=== PATIENT | female | born 1960 | race African-American/Black ===

== ENCOUNTER → 2018-11-17 | Day surgery (SDC) | payer OTHER ==
--- OUTSIDE RECORDS SUMMARY | 2018-11-17 09:30 | XMS REPORT ---
:1960 [facility] Address [address] [place] [address] Dr. Galloway [address] [place] [id number] Care Team Providers Name Role Phone Unavailable Unavailable Unavailable Problems This patient has no known problems. Allergies, Adverse Reactions, Alerts This patient has no known allergies or adverse reactions. Medications This patient has no known medications.
--- NOTE | 2018-11-17 10:41 | RAD REPORT ---
EXAM DESCRIPTION: US - Guided FNA Non Breast - 11/17/2018 10:27 am CLINICAL HISTORY: E04.1 COMPARISON: No comparisons FINDINGS: Preoperative diagnosis: Bilateral thyroid nodules.. Post operative diagnosis: Same. Conscious Sedation: None Fluoroscopy time: None Contrast used: None Estimated blood loss: Minimal Specimens:3 x 25 gauge FNA samples right thyroid. The neck was prepped and draped in the usual sterile fashion. 1% lidocaine was infiltrated into the s ubcutaneous tissues for local anesthesia. Real time ultrasound scanning of the right lobe of the thyr oid demonstrated large echogenic nodule measuring 2.6 x 3.7 x 3.0 cm. Areas of internal cystic change present. Under ultrasound guidance, using 25 gauge FNA needles, 3 specimens were obtained of this le armando and sent to pathology for evaluation. Further specimens could not be obtained due to extreme pat ient anxiety. There were no complications. The FNA procedure of the left thyroid nodule was deferred at this time due to extreme patient anxiety . IMPRESSION: Successful ultrasound-guided FNA procedure right thyroid dominant nodule. The patient was extremely anxious and thus the left-sided procedure was deferred at this time and may be rescheduled. Consideration may be given to Valium pre-procedure therapy.
== END ==
LOC: FNA 09:29
PROVIDERS: ATTEND Internal Medicine Endocrinology, Diabetes & Metabolism
PROC: 0GBH3ZX Excision of Right Thyroid Gland Lobe, Percutaneous Approach, Diagnostic (ICD-10-PCS; principal; 2018-11-17)
PROC: BG44ZZZ Ultrasonography of Thyroid Gland (ICD-10-PCS; 2018-11-17)
DX: E04.1 Nontoxic single thyroid nodule (principal)
CPT/HCPCS: 88162

== ENCOUNTER 2023-02-19 07:43 | Inpatient (IN) | payer OTHER ==
[2023-02-07 10:50] LABS: Absolute Lymphocytes (CBC) 2.7 K/uL (0.7-4.9); Lymphocytes % 33.8 % (15.3-44.8); MCV 83.6 fL (80-100); MPV 7.4 fL (7.6-11.3); RBC Red Blood Cell Count 3.83 M/uL (3.86-4.86)
[2023-02-07 11:12] LABS: SARS-CoV-2 Antigen Rapid Res Positive (Negative)
[2023-02-07 11:37] LABS: Albumin 2.8 g/dL (3.4-5.0); Bilirubin Total 0.2 mg/dL (0.2-1.0); Protein, Total 7.4 g/dL (6.4-8.2)
[2023-02-07 11:38] LABS: Specific Gravity > 1.030 (1.005-1.030); Urine Bacteria <20 /HPF (<20); Urine Bilirubin 1+ (Negative); Urine Blood Negative (Negative); Urine Clarity Clear (Clear); Urine Color Yellow (Yellow); Urine Crystals Unidentified Few /HPF (None Seen); Urine Glucose NEGATIVE (Negative); Urine Mucus 3+ /HPF (None Seen); Urine Protein 1+ (Negative); Urine Urobilinogen 1+ (Normal); Urine pH 5.5 (5.0-7.0)
--- NOTE | 2023-02-07 11:42 | RAD REPORT ---
EXAM DESCRIPTION: [facility] And Lat (2 Views)02/07/2023 10:47 am CLINICAL HISTORY: Pre op pending arthroplasty. Hypertension COMPARISON: CHEST PA AND LAT 2 VIEW dated 11/24/2014; CHEST PA AND LAT 2 VIEW dated 11/11/2012; CHEST S RICHARD VIEW dated 06/02/2010; CHEST SINGLE VIEW dated 06/26/2009 TECHNIQUE: PA and lateral views of the chest. FINDINGS: The lungs are clear.Hyperlucency and hyperinflation. Basal predominant chronic interstitia l changes, may relate to underlying COPD. Appearance is stable. No pneumothorax or effusion. The card iomediastinal contours are unremarkable. IMPRESSION: No acute cardiopulmonary process.
--- NOTE | 2023-02-07 18:10 | EKG ---
Test Date: 2023-02-07 Test Time: 10:08:12 Contract Serviceman: SIM MEASUREMENT RESULTS: Intervals: Rate: 71 NV: 154 QRSD: 90 QT: 444 QTc: 482 Munday: P: 68 NV: 154 QRS: 49 T: 46 INTERPRETIVE STATEMENTS: Normal sinus rhythm Normal ECG Compared to ECG 11/24/2014 10:56:26 T-wave abnormality no longer present Electronically Signed On 02-07-23 18:09:53 CDT by Bentley Tatum
[2023-02-19 08:25] LABS: Protime INR 0.96
[2023-02-19] MEDS ORDERED: CEFAZOLIN SODIUM 2 GM/VIAL ONE (08:27)
[2023-02-19] MEDS ORDERED: CELECOXIB 100 MG CAPSULE ONE (08:27)
[2023-02-19] MEDS ORDERED: GABAPENTIN 100 MG CAP ONE (08:28)
[2023-02-19] MEDS ORDERED: Oxycodone HCl/Acetaminophen 1 TAB TAB ONE ×2 (08:29→08:40)
[2023-02-19] MEDS ORDERED: ACETAMINOPHEN 500 MG TAB ONE (08:30)
[2023-02-19] MEDS ORDERED: NA CHLORIDE 0.9% 1,000 ML ONE ×2 (08:30→11:59)
[2023-02-19] MEDS ORDERED: dexAMETHasone 4 MG/ML VIAL ONE ×2 (09:16→13:40)
[2023-02-19] MEDS ORDERED: BUPIVACAINE 0.25% PF 30 ML VIAL ONE (09:17)
[2023-02-19] MEDS ORDERED: MIDAZOLAM HCL 2 MG/2 ML INJ ONE ×2 (09:17→14:11)
[2023-02-19] MEDS ORDERED: FENTANYL CITR 100 MCG/2 ML ONE (09:17)
[2023-02-19] MEDS ORDERED: HYDROMORPHONE HCL 1 MG/ML INJ ONE (10:06)
[2023-02-19] MEDS ORDERED: propofoL 200 MG/20 ML VIAL IV ONE (10:09)
[2023-02-19] MEDS ORDERED: LIDOCAINE 2% MPF 5 ML VIAL ONE ×2 (10:09→13:39)
[2023-02-19] MEDS ORDERED: ONDANSETRON 4 MG/2 ML VIAL ONE ×2 (10:12→13:21)
[2023-02-19] MEDS: TRANEXAMIC ACID 1,000 MG/10 ML VIAL IV ONE ×4 (10:28→12:30)
[2023-02-19] MEDS ORDERED: EPHEDRINE SULF 50 MG/ML VIAL ONE (10:52)
[2023-02-19] MEDS ORDERED: GLYCOPYRROLATE 0.2 MG/ML SYR ONE (10:58)
[2023-02-19] MEDS ORDERED: DOCUSATE NA 100 MG CAP PO PRN (12:45)
[2023-02-19] MEDS ORDERED: KETOROLAC 30 MG/ML INJ ONE (12:45)
[2023-02-19] MEDS ORDERED: ONDANSETRON 4 MG/2 ML VIAL IV PRN (12:45)
--- NOTE | 2023-02-19 12:55 | P.BOP ---
Preoperative diagnosis: left knee arthritis Postoperative diagnosis: same Primary procedure: left total knee arthoplasty Estimated blood loss: 100ccs Anesthesia: General Complications: None Transferred to: Recovery Room Condition: Good
[2023-02-19] MEDS: HYDROMORPHONE HCL 1 MG/ML INJ ONE ×4 (13:16→13:31)
[2023-02-19] MEDS ORDERED: EPINEPHRINE/PF 1 MG/ML AMP ONE (13:40)
--- OUTSIDE RECORDS SUMMARY | 2023-02-19 14:19 | XMS REPORT | Continuity of Care Document ---
:1960 Author Organization [facility] t Address [address] [place] [address] [address] [place] [address] Care Team Providers Name Role Phone CODY DWYER Primary Care Physician Unavailable TANISHA DE LOS SANTOS Attending Clinician Unavailable CODY DWYER Attending Clinician Unavailable VILLA CHONG Attending Clinician Unavailable Cody Dwyer MD Attending Clinician Doctor Unassigned, [place] Attending Clinician Unavailable Arnaldo Stewart PTA Attending Clinician Unavailable Gurpreet Ty MD Attending Clinician Yaquelin Mari PT Attending Clinician Unavailable Henri Ortiz MD Attending Clinician Pob, [facility] Lab Main Attending Clinician Unavailable Awa Alvarez RN Attending Clinician Unavailable PEDRO PITT Attending Clinician Unavailable Pedro Pitt DO Attending Clinician Serina Lugo MD Attending Clinician [phone] Tanisha De Los Santos MD Attending Clinician RAMIREZ Attending Clinician Unavailable 2, Adc Lab Attending Clinician Unavailable Villa Chong DO Attending Clinician Pcp-Lab Attending Clinician Unavailable ITZ WATT Attending Clinician Unavailable Itz Roth Attending Clinician Lab, Ang - Db Attending Clinician Unavailable Robyn Arias RN Attending Clinician Unavailable Vaccine, Adc Family Medicine Attending Clinician Unavailable Rhett Cheema DO Attending Clinician RHETT CHEEMA Attending Clinician Unavailable GURPREET TY Attending Clinician Unavailable Nelson Aragon MD Attending Clinician MAXIMILIAN SEAMAN S Attending Clinician Unavailable Padmini PACMaximilian S Attending Clinician MELITA MONTEZ Attending Clinician Unavailable Mickey EMBEDDED SOFTWARE TEST ENGINEERMelita Attending Clinician Tono Rico RN Attending Clinician Unavailable CONSTANTINE ALVAREZ Attending Clinician Unavailable Reyna Watt MD Attending Clinician Constantine Alvarez MD Attending Clinician GUILLERMINA PALMA Attending Clinician Unavailable Guillermina Palma DO Attending Clinician Barbara Nagy LMSW Attending Clinician Roxana Nunn OT Attending Clinician Unavailable Nurse, Adc Pob Immunization Attending Clinician Unavailable Med, Medicare Wellness Krishna Flores Attending Clinician Unavailab [place] Attending Clinician Unavailable SHAD GREENBERG Attending Clinician Unavailable SKIP HAWLEY Attending Clinician Unavailable SKIP HAWLEY Attending Clinician Unavailable BARRIE AUGUSTIN Attending Clinician Unavailable TUYET LEVINE Attending Clinician Unavailable ZHANE CARRASCO Attending Clinician Unavailable JOSE ROBIN Attending Clinician Unavailable CODY DWYER Admitting Clinician Unavailable TANISHA DE LOS SANTOS Admitting Clinician Unavailable RAMIREZ Admitting Clinician Unavailable PEDRO PITT Admitting Clinician Unavailable MELITA MONTEZ Admitting Clinician Unavailable CONSTANTINE ALVAREZ Admitting Clinician Unavailable Constantine Alvarez MD Admitting Clinician SKIP HAWLEY Admitting Clinician Unavailable JOSE ROBIN Admitting Clinician Unavailable Payers Payer Name Policy Type Policy Number Effective Date Expiration Date S rubi [facility] DUAL [id number] 2019 COMP HMO D SNP 00:00:00 [facility] [id number] 2016 00:00:00 [facility] [id number] DUAL COMPLETE CHOICE Problems Condition Condition Condition Status Onset Resolution Last Treating Co mments Source Name Details Category Date Date Treatment Clinician Date YI YI Disease Active Univers positive positive 7-05 ity of 00:00: [place] 00 Medical Branch Low TSH Low TSH Disease Active Univers level level 7-05 ity of 00:00: [place] 00 Medical Branch Rheumatoid Rheumatoid Disease Active U nivers factor factor 7-05 ity of positive positive 00:00: [place] 00 Medical Branch Rheumatoid Rheumatoid Disease Active U nivers arthritis arthritis 5-31 ity of flare flare 00:00: [place] 00 Medical Branch Gouty Gouty Disease Active Univers arthritis arthritis 5-31 ity of 00:00: [place] 00 Medical Branch Nicotine Nicotine Disease Active Unive rs dependence dependence 5-31 it y of with with 00:00: [place] current current 00 Medical use use Branch Gouty Gouty Disease Active Univers arthritis arthritis 5-31 ity of 00:00: [place] 00 Medical Branch Nicotine Nicotine Disease Active Unive rs dependence dependence 5-31 it y of with with 00:00: [place] current current 00 Medical use use Branch Arthritis, Arthritis, Disease Active U nivers multiple multiple 2-04 ity of joint joint 00:00: [place] involvemen involvemen 00 Me dical t t Branch Lisfranc Lisfranc Disease Active Unive rs dislocatio dislocatio 2-04 it y of n, left, n, left, 00:00: [place] sequela sequela 00 Medical Branch Swelling Swelling Disease Active Unive rs of joint of joint 2-04 ity of of of 00:00: [place] multiple multiple 00 Medica l sites sites Branch Left foot Left foot Disease Active Uni vers pain pain 2-04 ity of 00:00: [place] 00 Medical Branch Obesity Obesity Disease Active Univers (BMI (BMI 1-04 ity of 30-39.9) 30-39.9) 00:00: [place] 00 [facility] Disease Active 2020-11 Unive rs discharge discharge 0-21 ity of follow-up follow-up 00:00: Mirtha covarrubias 00 Medical Branch Right Right Disease Active 2020-11 Univers groin pain groin pain 0-21 it y of 00:00: [place] 00 Medical Branch Supraumbil Supraumbil Disease Active 2020-11 U nivers ical ical 0-21 ity of hernia hernia 00:00: [place] 00 Medical Branch Colon, Colon, Disease Active 2020-11 Univers diverticul diverticul 0-21 it y of osis osis 00:00: [place] 00 Medical Branch Primary Primary Disease Active 2020-11 Univers osteoarthr osteoarthr 0-21 it y of itis of itis of 00:00: [place] both knees both knees 00 Me dical Branch Primary Primary Disease Active 2020-11 Univers osteoarthr osteoarthr 0-21 it y of itis of itis of 00:00: [place] both both 00 Medical shoulders shoulders 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 2020-11 Uni vers (current) (current) 0-21 ity of use of use of 00:00: [place] non-steroi non-steroi 00 Ct dical laura laura Branch anti-infla anti-infla mmatories mmatories (nsaid) (nsaid) 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 acute acute 0-09 ity of exacerbati exacerbati 00:[place] 00 Medical Branch Falls Falls Disease Active Univers frequently frequently 9- it y of 00:00: [place] 00 Medical Branch Infective Infective Disease Active Uni vers urethritis urethritis 5-11 it y of 00:00: [place] 00 Medical Branch Proteus Proteus Disease Active Univers mirabilis mirabilis 5-11 ity of infection infection 00:[place] Hypertensi Hypertensi Disease Active U nivers ve heart ve heart 5-11 ity of and kidney and kidney 00:[place] disease disease 00 Medical with HF with HF Branch and with and with CKD stage CKD stage II II Need for Need for Disease Active Unive rs immunizati immunizati 4-20 it y of on against on against 00:[place] influenza influenza 00 [facility] Branch Yeast Yeast Disease Active Univers infection infection 4-20 ity of 00:00: [place] 00 Medical Branch Adjustment Adjustment Disease Active U nivers reaction reaction 4-20 ity of with with 00:00: [place] anxiety anxiety 00 Medical and and Branch depression depression Cigarette Cigarette Disease Active Uni vers nicotine nicotine 4-20 ity of dependence dependence 00:[place] 00 Medical remission remission Bran ch Type 2 Type 2 Disease Active Univers diabetes diabetes 1-27 ity of mellitus mellitus 00:00: [place] without without 00 Medical complicati complicati Br anch on, on, without without long-term long-term current current use of use of insulin insulin Other Other Disease Active Univers emphysema emphysema 1-27 ity of 00:00: [place] 00 Medical Branch Chronic Chronic Disease Active Univers pain of pain of 1-27 ity of both both 00:00: [place] shoulders shoulders 00 Medi rodney Branch Gastroesop Gastroesop Disease Active U anshul hageal hageal 1-27 ity of reflux reflux 00:00: [place] disease disease 00 Medical with with Branch esophagiti esophagiti s without s without hemorrhage hemorrhage Dyslipidem Dyslipidem Disease Active U nivers ia ia 1-27 ity of 00:00: [place] 00 Medical Branch Anxiety Anxiety Disease Active Univers and and 1-27 ity of depression depression 00:[place] Chronic Chronic Disease Active Univers midline midline 1-27 ity of low back low back 00:00: [place] pain with pain with 00 Medi rodney bilateral bilateral Bran ch sciatica sciatica Muscle Muscle Disease Active Univers spasticity spasticity 1-27 it y of 00:00: [place] 00 Medical Branch Chronic Chronic Disease Active Univers pain of pain of 1-27 ity of both both 00:00: [place] shoulders shoulders 00 Medi rodney Branch Weakness Weakness Disease Active 2019-11 Unive rs 0-29 ity of 00:00: [place] 00 Medical Branch Atypical Atypical Disease Active Unive rs chest pain chest pain 1-10 it y of 00:00: [place] 00 Medical Branch Hyperglyce Hyperglyce Disease Active U kristopherers pablo pablo 1-09 ity of 00:00: [place] 00 Medical Branch YEHUDA YEHUDA Disease Active 2018-11 Univers (obstructi (obstructi 0-27 it y of ve sleep ve sleep 00:00: [place] apnea) apnea) 00 [facility] Morbid Morbid Disease Active 2018-11 Univers obesity obesity 0-27 ity of 00:00: [place] 00 [facility] Branch Chronic Chronic Disease Active 2018-11 Univers heart heart 0-27 ity of failure failure 00:00: [place] with with 00 Medical preserved preserved Bran ch ejection ejection fraction fraction Essential Essential Disease Active 2018-11 Uni vers hypertensi hypertensi 0-27 it y of on on 00:00: [address] Dizziness Dizziness Disease Active 2018-11 Uni vers and and 0-27 ity of giddiness giddiness 00:00: [place] [facility] Allergies, Adverse Reactions, Alerts Allergy Allergy Status Severity Reaction(s) Onset Inactive Treating Comm ents Source Name Type Date Date Clinician NO KNOWN Drug Active Univers ALLERGIE Class ity of S [facility] Social History Social Habit Start Date Stop Date Quantity Comments Source Alcohol intake 2022-12-07 2022-12-07 0 /d University of 00:00:00 00:00:00 [facility] Exposure to 2022-10-01 2022-10-11 Not sure University of SARS-CoV-2 00:00:00 13:54:00 [facility] (event) [place] Cigarettes smoked 2022-08-08 2022-08-08 Univers ity of current (pack per 00:00:00 00:00:00 ) - Reported Branch Cigarette 2022-08-08 2022-08-08 University of pack-years 00:00:00 00:00:00 [facility] Tobacco use and 2022-08-08 2022-08-08 Smokeless tobacco Un iversity of exposure 00:00:00 00:00:00 non-user [facility] Tobacco Comment 2022-08-08 2022-08-08 intermittent since U niversity of 00:00:00 00:00:00 1987, did non [place] Medic al nicotene vaping in Branch past History of 1988-08-04 2020-08-04 Cigarette Smoker Universi ty of tobacco use 00:00:00 00:00:00 [facility] Sex [birth year] At [birth year] Universit y of 00:00:00 00:00:00 [facility] Smoking Status Start Date Stop Date Source Ex-smoker 2022-08-08 00:00:00 2022-08-08 00:00:00 [facility] [place] [facility] Medications Ordered Filled Start Stop Current Ordering Indication Dosage Frequency Signature Comments Components Source Medication Medication Date Date Medication? Clinician (SIG) Name Name FLUTICASONE Yes [id number] SHAKE Univers PROPIONATE 3-28 LIQUID AND ity of 50 00:00: USE 2 [place] mcg/actuati 00 SPRAYS IN Med ical on nasal EACH Branch spray NOSTRIL EVERY DAY ergocalcife 2022-0 Yes [id number] Take 1 Univers rol, 3-19 capsule by ity of vitamin d2, 00:00: mouth [place] 1,250 mcg 00 weekly. Medical (50,000 Branch unit) capsule calcium 2022-0 Yes [id number] 500mg Take 1 Uni vers carbonate 3-19 tablet by ity o f (CALCIUM 00:00: mouth in [place] 500) 500 mg 00 the Medical calcium morning. Branch (1,250 mg) tablet ergocalcife 2022-0 Yes [id number] Take 1 Univers rol, 3-19 capsule by ity of vitamin d2, 00:00: mouth [place] 1,250 mcg 00 weekly. Medical (50,000 Branch unit) capsule calcium 2022-0 Yes [id number] 500mg Take 1 Uni vers carbonate 3-19 tablet by ity o f (CALCIUM 00:00: mouth in [place] 500) 500 mg 00 the Medical calcium morning. Branch (1,250 mg) tablet ergocalcife 2022-0 Yes [id number] Take 1 Univers rol, 3-19 capsule by ity of vitamin d2, 00:00: mouth [place] 1,250 mcg 00 weekly. Medical (50,000 Branch unit) capsule calcium 2022-0 Yes [id number] 500mg Take 1 Uni vers carbonate 3-19 tablet by ity o f (CALCIUM 00:00: mouth in [place] 500) 500 mg 00 the Medical calcium morning. Branch (1,250 mg) tablet ALBUTEROL 2022-0 Yes [id number] INHALE ONE Univers 2.5 mg /3 3-01 VIAL VIA ity of mL (0.083 00:00: NEBULIZER Willy as %) 00 EVERY 4 Medical nebulizer HOURS Branch solution NEEDED FOR WHEEZING OR SHORTNESS OF BREATH ALBUTEROL 0 Yes [id number] INHALE ONE Univers 2.5 mg /3 3-01 VIAL VIA ity of mL (0.083 00:00: NEBULIZER Willy as %) 00 EVERY 4 Medical nebulizer HOURS Branch solution NEEDED FOR WHEEZING OR SHORTNESS OF BREATH ALBUTEROL 2022-0 Yes [id number] INHALE ONE Univers 2.5 mg /3 3-01 VIAL VIA ity of mL (0.083 00:00: NEBULIZER Willy as %) 00 EVERY 4 Medical nebulizer HOURS Branch solution NEEDED FOR WHEEZING OR SHORTNESS OF BREATH ALBUTEROL 2022-0 Yes [id number] INHALE ONE Univers 2.5 mg /3 3-01 VIAL VIA ity of mL (0.083 00:00: NEBULIZER Willy as %) 00 EVERY 4 Medical nebulizer HOURS Branch solution NEEDED FOR WHEEZING OR SHORTNESS OF BREATH ALBUTEROL 2022-0 Yes [id number] INHALE ONE Univers 2.5 mg /3 3-01 VIAL VIA ity of mL (0.083 00:00: NEBULIZER Willy as %) 00 EVERY 4 Medical nebulizer HOURS Branch solution NEEDED FOR WHEEZING OR SHORTNESS OF BREATH GLIMEPIRIDE 2022-0 Yes [id number] TAKE 1 Univers 2 mg tablet 1-24 TABLET BY ity of 00:00: MOUTH IN [place] [address] THE Medical MORNING Branch AND IN THE EVENING METFORMIN 2022-0 Yes [id number] TAKE 1 U nivers 500 mg 1-24 TABLET BY ity of tablet 00:00: MOUTH IN [place] [address] THE Medical MORNING Branch AND IN THE EVENING WITH MEALS GLIMEPIRIDE 2022-0 Yes [id number] TAKE 1 Univers 2 mg tablet 1-24 TABLET BY ity of 00:00: MOUTH IN [place] [address] THE Medical MORNING Branch AND IN THE EVENING METFORMIN 2022-0 Yes [id number] TAKE 1 U nivers 500 mg 1-24 TABLET BY ity of tablet 00:00: MOUTH IN [place] THE Medical MORNING Branch AND IN THE EVENING WITH MEALS GLIMEPIRIDE 2022-0 Yes [id number] TAKE 1 Univers 2 mg tablet 1-24 TABLET BY ity of 00:00: MOUTH IN [place] [address] THE Medical MORNING Branch AND IN THE EVENING METFORMIN 2022-0 Yes [id number] TAKE 1 U nivers 500 mg 1-24 TABLET BY ity of tablet 00:00: MOUTH IN [place] [address] THE Medical MORNING Branch AND IN THE EVENING WITH MEALS GLIMEPIRIDE 2022-0 Yes [id number] TAKE 1 Univers 2 mg tablet 1-24 TABLET BY ity of 00:00: MOUTH IN [place] 00 THE Medical MORNING Branch AND IN THE EVENING METFORMIN 0 Yes [id number] TAKE 1 U nivers 500 mg 1-24 TABLET BY ity of tablet 00:00: MOUTH IN [place] 00 THE Medical MORNING Branch AND IN THE EVENING WITH MEALS GLIMEPIRIDE 0 Yes [id number] TAKE 1 Univers 2 mg tablet 1-24 TABLET BY ity of 00:00: MOUTH IN [place] 00 THE Medical MORNING Branch AND IN THE EVENING METFORMIN 0 Yes [id number] TAKE 1 U nivers 500 mg 1-24 TABLET BY ity of tablet 00:00: MOUTH IN [place] 00 THE Medical MORNING Branch AND IN THE EVENING WITH MEALS GLIMEPIRIDE 0 Yes [id number] TAKE 1 Univers 2 mg tablet 1-24 TABLET BY ity of 00:00: MOUTH IN [place] 00 THE Medical MORNING Branch AND IN THE EVENING METFORMIN 0 Yes [id number] TAKE 1 U nivers 500 mg 1-24 TABLET BY ity of tablet 00:00: MOUTH IN [place] [address] THE Medical MORNING Branch AND IN THE EVENING WITH MEALS GLIMEPIRIDE 0 Yes [id number] TAKE 1 Univers 2 mg tablet 1-24 TABLET BY ity of 00:00: MOUTH IN [place] 00 THE Medical MORNING Branch AND IN THE EVENING METFORMIN 2022-0 Yes [id number] TAKE 1 U nivers 500 mg 1-24 TABLET BY ity of tablet 00:00: MOUTH IN [place] 00 THE Medical MORNING Branch AND IN THE EVENING WITH MEALS GLIMEPIRIDE 0 Yes [id number] TAKE 1 Univers 2 mg tablet 1-24 TABLET BY ity of 00:00: MOUTH IN [place] [address] THE Medical MORNING Branch AND IN THE EVENING METFORMIN 2022-0 Yes [id number] TAKE 1 U nivers 500 mg 1-24 TABLET BY ity of tablet 00:00: MOUTH IN [place] [address] THE Medical MORNING Branch AND IN THE EVENING WITH MEALS GLIMEPIRIDE 0 Yes [id number] TAKE 1 Univers 2 mg tablet 1-24 TABLET BY ity of 00:00: MOUTH IN [place] [address] THE Medical MORNING Branch AND IN THE EVENING METFORMIN 2022-0 Yes [id number] TAKE 1 U nivers 500 mg 1-24 TABLET BY ity of tablet 00:00: MOUTH IN [place] [address] THE Medical MORNING Branch AND IN THE EVENING WITH MEALS GLIMEPIRIDE 2022-0 Yes [id number] TAKE 1 Univers 2 mg tablet 1-24 TABLET BY ity of 00:00: MOUTH IN [place] [address] THE Medical MORNING Branch AND IN THE EVENING METFORMIN 2022-0 Yes [id number] TAKE 1 U nivers 500 mg 1-24 TABLET BY ity of tablet 00:00: MOUTH IN [place] [address] THE Medical MORNING Branch AND IN THE EVENING WITH MEALS GLIMEPIRIDE 2022-0 Yes [id number] TAKE 1 Univers 2 mg tablet 1-24 TABLET BY ity of 00:00: MOUTH IN [place] [address] THE Medical MORNING Branch AND IN THE EVENING METFORMIN 2022-0 Yes [id number] TAKE 1 U nivers 500 mg 1-24 TABLET BY ity of tablet 00:00: MOUTH IN [place] [address] THE Medical MORNING Branch AND IN THE EVENING WITH MEALS GLIMEPIRIDE 2022-0 Yes [id number] TAKE 1 Univers 2 mg tablet 1-24 TABLET BY ity of 00:00: MOUTH IN [place] [address] THE Medical MORNING Branch AND IN THE EVENING METFORMIN 2022-0 Yes [id number] TAKE 1 U nivers 500 mg 1-24 TABLET BY ity of tablet 00:00: MOUTH IN [place] [address] THE Medical MORNING Branch AND IN THE EVENING WITH MEALS GLIMEPIRIDE 2022-0 Yes [id number] TAKE 1 Univers 2 mg tablet 1-24 TABLET BY ity of 00:00: MOUTH IN [place] [address] THE Medical MORNING Branch AND IN THE EVENING METFORMIN 2022-0 Yes [id number] TAKE 1 U nivers 500 mg 1-24 TABLET BY ity of tablet 00:00: MOUTH IN [place] [address] THE Medical MORNING Branch AND IN THE EVENING WITH MEALS buPROPion 2022-0 Yes [id number] 150mg Take 1 U nivers SR 150 mg 1-05 tablet by ity o f SR tablet 00:00: mouth in [place] [address] the Medical morning Branch and 1 tablet in the evening. diclofenac- 2022-0 Yes [id number] 1{tbl} Take 1 Univers misoprostoL 1-05 tablet by ity of 50-200 00:00: mouth in [place] mg-mcg per the Medical [facility] morning Branch and 1 tablet in the evening. buPROPion 2022-0 Yes [id number] 150mg Take 1 U nivers SR 150 mg 1-05 tablet by ity o f SR tablet 00:00: [place] the Medical morning Branch and 1 tablet in the evening. diclofenac- 2022-0 Yes [id number] 1{tbl} Take 1 Univers misoprostoL 1-05 tablet by ity of 50-200 00:00: mouth in [place] mg-mcg per 00 the Medical tablet morning Branch and 1 tablet in the evening. buPROPion 2022-0 Yes [id number] 150mg Take 1 U nivers SR 150 mg 1-05 tablet by ity o f SR tablet 00:00: [place] the Medical morning Branch and 1 tablet in the evening. diclofenac- 2022-0 Yes [id number] 1{tbl} Take 1 Univers misoprostoL 1-05 tablet by ity of 50-200 00:00: mouth in [place] mg-mcg per 00 the Medical tablet morning Branch and 1 tablet in the evening. buPROPion 2022-0 Yes [id number] 150mg Take 1 U nivers SR 150 mg 1-05 tablet by ity o f SR tablet 00:00: [place] 00 the Medical morning Branch and 1 tablet in the evening. diclofenac- 2022-0 Yes [id number] 1{tbl} Take 1 Univers misoprostoL 1-05 tablet by ity of 50-200 00:00: mouth in [place] mg-mcg per 00 the Medical tablet morning Branch and 1 tablet in the evening. buPROPion 2022-0 Yes [id number] 150mg Take 1 U nivers SR 150 mg 1-05 tablet by ity o f SR tablet 00:00: [place] 00 the Medical morning Branch and 1 tablet in the evening. diclofenac- 2022-0 Yes [id number] 1{tbl} Take 1 Univers misoprostoL 1-05 tablet by ity of 50-200 00:00: mouth in [place] mg-mcg per 00 the Medical tablet morning Branch and 1 tablet in the evening. buPROPion 2022-0 Yes [id number] 150mg Take 1 U nivers SR 150 mg 1-05 tablet by ity o f SR tablet 00:00: [place] 00 the Medical morning Branch and 1 tablet in the evening. diclofenac- 2022-0 Yes [id number] 1{tbl} Take 1 Univers misoprostoL 1-05 tablet by ity of 50-200 00:00: mouth in [place] mg-mcg per 00 the Medical tablet morning Branch and 1 tablet in the evening. buPROPion 2022-0 Yes [id number] 150mg Take 1 U nivers SR 150 mg 1-05 tablet by ity o f SR tablet 00:00: mouth [place] 00 the Medical morning Branch and 1 tablet in the evening. diclofenac- 2022-0 Yes [id number] 1{tbl} Take 1 Univers misoprostoL 1-05 tablet by ity of 50-200 00:00: mouth in [place] mg-mcg per 00 the Medical tablet morning Branch and 1 tablet in the evening. buPROPion 2022-0 Yes [id number] 150mg Take 1 U nivers SR 150 mg 1-05 tablet by ity o f SR tablet 00:00: mouth [place] 00 the Medical morning Branch and 1 tablet in the evening. diclofenac- 2022-0 Yes [id number] 1{tbl} Take 1 Univers misoprostoL 1-05 tablet by ity of 50-200 00:00: mouth in [place] mg-mcg per 00 the Medical tablet morning Branch and 1 tablet in the evening. buPROPion 2022-0 Yes [id number] 150mg Take 1 U nivers SR 150 mg 1-05 tablet by ity o f SR tablet 00:00: [place] 00 the Medical morning Branch and 1 tablet in the evening. diclofenac- 2022-0 Yes [id number] 1{tbl} Take 1 Univers misoprostoL 1-05 tablet by ity of 50-200 00:00: mouth in [place] mg-mcg per 00 the Medical tablet morning Branch and 1 tablet in the evening. buPROPion 2022-0 Yes [id number] 150mg Take 1 U nivers SR 150 mg 1-05 tablet by ity o f SR tablet 00:00: [place] 00 the Medical morning Branch and 1 tablet in the evening. diclofenac- 2022-0 Yes [id number] 1{tbl} Take 1 Univers misoprostoL 1-05 tablet by ity of 50-200 00:00: mouth in [place] mg-mcg per 00 the Medical tablet morning Branch and 1 tablet in the evening. buPROPion 2022-0 Yes [id number] 150mg Take 1 U nivers SR 150 mg 1-05 tablet by ity o f SR tablet 00:00: [place] 00 the Medical morning Branch and 1 tablet in the evening. diclofenac- 2022-0 Yes [id number] 1{tbl} Take 1 Univers misoprostoL 1-05 tablet by ity of 50-200 00:00: mouth in [place] mg-mcg per 00 the Medical tablet morning Branch and 1 tablet in the evening. buPROPion 2022-0 Yes [id number] 150mg Take 1 U nivers SR 150 mg 1-05 tablet by ity o f SR tablet 00:00: [place] 00 the Medical morning Branch and 1 tablet in the evening. diclofenac- 2022-0 Yes [id number] 1{tbl} Take 1 Univers misoprostoL 1-05 tablet by ity of 50-200 00:00: mouth in [place] mg-mcg per 00 the Medical tablet morning Branch and 1 tablet in the evening. buPROPion 2022-0 Yes [id number] 150mg Take 1 U nivers SR 150 mg 1-05 tablet by ity o f SR tablet 00:00: [place] 00 the Medical morning Branch and 1 tablet in the evening. diclofenac- 2022-0 Yes [id number] 1{tbl} Take 1 Univers misoprostoL 1-05 tablet by ity of 50-200 00:00: mouth in [place] mg-mcg per 00 the Medical tablet morning Branch and 1 tablet in the evening. buPROPion 2022-0 Yes [id number] 150mg Take 1 U nivers SR 150 mg 1-05 tablet by ity o f SR tablet 00:00: [place] 00 the Medical morning Branch and 1 tablet in the evening. diclofenac- 2022-0 Yes [id number] 1{tbl} Take 1 Univers misoprostoL 1-05 tablet by ity of 50-200 00:00: mouth in [place] mg-mcg per 00 the Medical tablet morning Branch and 1 tablet in the evening. buPROPion 2022-0 Yes [id number] 150mg Take 1 U nivers SR 150 mg 1-05 tablet by ity o f SR tablet 00:00: [place] 00 the Medical morning Branch and 1 tablet in the evening. diclofenac- 2022-0 Yes [id number] 1{tbl} Take 1 Univers misoprostoL 1-05 tablet by ity of 50-200 00:00: mouth in [place] mg-mcg per 00 the Medical tablet morning Branch and 1 tablet in the evening. buPROPion 0 Yes [id number] 150mg Take 1 U nivers SR 150 mg 1-05 tablet by ity o f SR tablet 00:00: [place] 00 the Medical morning Branch and 1 tablet in the evening. diclofenac- Yes [id number] 1{tbl} Take 1 Univers misoprostoL 1-05 tablet by ity of 50-200 00:00: mouth in [place] mg-mcg per 00 the Medical tablet morning Branch and 1 tablet in the evening. buPROPion 0 Yes [id number] 150mg Take 1 [facility] n[facility] SR 150 mg 1-05 tablet by ity o f SR tablet 00:00: [place] 00 the Medical morning Branch and 1 tablet in the evening. diclofenac- Yes [id number] 1{tbl} Take 1 [facility] misoprostoL 1-05 tablet by ity of 50-200 00:00: mouth in [place] mg-mcg per 00 the Medical tablet morning Branch and 1 tablet in the evening. buPROPion 0 Yes [id number] 150mg Take 1 [facility] nivers SR 150 mg 1-05 tablet by ity o f SR tablet 00:00: mouth [place] 00 the Medical morning Branch and 1 tablet in the evening. diclofenac- Yes [id number] 1{tbl} Take 1 [facility] misoprostoL 1-05 tablet by ity of 50-200 00:00: mouth in [place] mg-mcg per 00 the Medical tablet morning Branch and 1 tablet in the evening. buPROPion 0 Yes [id number] 150mg Take 1 U nivers SR 150 mg 1-05 tablet by ity o f SR tablet 00:00: mouth [place] 00 the Medical morning Branch and 1 tablet in the evening. diclofenac- 0 Yes [id number] 1{tbl} Take 1 [facility] misoprostoL 1-05 tablet by ity of 50-200 00:00: mouth in [place] mg-mcg per 00 the Medical tablet morning Branch and 1 tablet in the evening. fluticasone 2021-11 Yes [id number] SHAKE [facility] propionate 2-29 LIQUID AND ity of 50 00:00: USE 2 [place] mcg/actuati 00 SPRAYS IN Med ical on nasal EACH Branch spray NOSTRIL EVERY DAY fluticasone 2021-11 Yes [id number] SHAKE [facility] propionate 2-29 LIQUID AND ity of 50 00:00: USE 2 [place] mcg/actuati 00 SPRAYS IN Med ical on nasal EACH Branch spray NOSTRIL EVERY DAY fluticasone 2021-11 Yes [id number] SHAKE [facility] propionate 2-29 LIQUID AND ity of 50 00:00: USE 2 [place] mcg/actuati 00 SPRAYS IN Med ical on nasal EACH Branch spray NOSTRIL EVERY DAY fluticasone 2021-11 Yes [id number] SHAKE [facility] propionate 2-29 LIQUID AND ity of 50 00:00: USE 2 [place] mcg/actuati 00 SPRAYS IN Med ical on nasal EACH Branch spray NOSTRIL EVERY DAY fluticasone 2021-11 Yes [id number] SHAKE [facility] propionate 2-29 LIQUID AND ity of 50 00:00: USE 2 [place] mcg/actuati 00 SPRAYS IN Med ical on nasal EACH Branch spray NOSTRIL EVERY DAY fluticasone 2021-11 Yes [id number] SHAKE [facility] propionate 2-29 LIQUID AND ity of 50 00:00: USE 2 [place] mcg/actuati 00 SPRAYS IN Med ical on nasal EACH Branch spray NOSTRIL EVERY DAY fluticasone 2021-11 Yes [id number] SHAKE [facility] propionate 2-29 LIQUID AND ity of 50 00:00: USE 2 [place] mcg/actuati 00 SPRAYS IN Med ical on nasal EACH Branch spray NOSTRIL EVERY DAY fluticasone 2021-11 Yes [id number] SHAKE [facility] propionate 2-29 LIQUID AND ity of 50 00:00: USE 2 [place] mcg/actuati 00 SPRAYS IN Med ical on nasal EACH Branch spray NOSTRIL EVERY DAY fluticasone 2021-11 Yes [id number] SHAKE [facility] propionate 2-29 LIQUID AND ity of 50 00:00: USE 2 [place] mcg/actuati 00 SPRAYS IN Med ical on nasal EACH Branch spray NOSTRIL EVERY DAY fluticasone 2021-11 Yes [id number] SHAKE [facility] propionate 2-29 LIQUID AND ity of 50 00:00: USE 2 [place] mcg/actuati 00 SPRAYS IN Med ical on nasal EACH Branch spray NOSTRIL EVERY DAY fluticasone 2021-11 Yes [id number] SHAKE [facility] propionate 2-29 LIQUID AND ity of 50 00:00: USE 2 [place] mcg/actuati 00 SPRAYS IN Med ical on nasal EACH Branch spray NOSTRIL EVERY DAY fluticasone 2021-11 Yes [id number] SHAKE [facility] propionate 2-29 LIQUID AND ity of 50 00:00: USE 2 [place] mcg/actuati 00 SPRAYS IN Med ical on nasal EACH Branch spray NOSTRIL EVERY DAY fluticasone 2021-11 Yes [id number] SHAKE [facility] propionate 2-29 LIQUID AND ity of 50 00:00: USE 2 [place] mcg/actuati 00 SPRAYS IN Med ical on nasal EACH Branch spray NOSTRIL EVERY DAY fluticasone 2021-11 Yes [id number] SHAKE [facility] propionate 2-29 LIQUID AND ity of 50 00:00: USE 2 [place] mcg/actuati 00 SPRAYS IN Med ical on nasal EACH Branch spray NOSTRIL EVERY DAY fluticasone 2021-11 Yes [id number] SHAKE [facility] propionate 2-29 LIQUID AND ity of 50 00:00: USE 2 [place] mcg/actuati 00 SPRAYS IN Med ical on nasal EACH Branch spray NOSTRIL EVERY DAY fluticasone 2021-11 Yes [id number] SHAKE [facility] propionate 2-29 LIQUID AND ity of 50 00:00: USE 2 [place] mcg/actuati 00 SPRAYS IN Med ical on nasal EACH Branch spray NOSTRIL EVERY DAY fluticasone 2021-11 Yes [id number] SHAKE [facility] propionate 2-29 LIQUID AND ity of 50 00:00: USE 2 [place] mcg/actuati 00 SPRAYS IN Med ical on nasal EACH Branch spray NOSTRIL EVERY DAY fluticasone 2021-11 Yes [id number] SHAKE [facility] propionate 2-29 LIQUID AND ity of 50 00:00: USE 2 [place] mcg/actuati 00 SPRAYS IN Med ical on nasal EACH Branch spray NOSTRIL EVERY DAY fluticasone 2021-11 Yes [id number] SHAKE [facility] propionate 2-29 LIQUID AND ity of 50 00:00: USE 2 [place] mcg/actuati 00 SPRAYS IN Med ical on nasal EACH Branch spray NOSTRIL EVERY DAY fluticasone 2021-11 Yes [id number] SHAKE [facility] propionate 2-29 LIQUID AND ity of 50 00:00: USE 2 [place] mcg/actuati 00 SPRAYS IN Med ical on nasal EACH Branch spray NOSTRIL EVERY DAY fluticasone 2021-11 Yes [id number] SHAKE [facility] propionate 2-29 LIQUID AND ity of 50 00:00: USE 2 [place] mcg/actuati 00 SPRAYS IN Med ical on nasal EACH Branch spray NOSTRIL EVERY DAY fluticasone 2021-11 Yes [id number] SHAKE [facility] propionate 2-29 LIQUID AND ity of 50 00:00: USE 2 [place] mcg/actuati 00 SPRAYS IN Med ical on nasal EACH Branch spray NOSTRIL EVERY DAY fluticasone 2021-11 Yes [id number] SHAKE [facility] propionate 2-29 LIQUID AND ity of 50 00:00: USE 2 [place] mcg/actuati 00 SPRAYS IN Med ical on nasal EACH Branch spray NOSTRIL EVERY DAY fluticasone 2021-11- No [id number] ANAKE [facility] propionate 2-29 03-28 LIQUID AND it y of 50 00:00: 00:00 USE 2 [place] mcg/actuati 00 :00 SPRAYS IN Med ical on nasal EACH Branch spray NOSTRIL EVERY DAY methylpredn 2021-11 Yes 125mg 125 mg, Un pelon isolone sod 209 Intravenou it y of succ 00:00: s, Q6H, [place] (SOLU-MEDRO 00 First dose Me dical L) on [place] Branch injection 10/11/22 at 125 mg 1800, Until Discontinu ed, Routine ketorolac 2021-11- No 15mg 15 mg, Unive rs (TORADOL) 2- 12-08 Slow IV ity of injection 21:15: 20:44 Push, [place] 15 mg 00 :00 ONCE, 1 Medical dose, On Branch [place] 10/11/22 at 1515, Routine methylPREDN 2021-11 Yes Take by [facility] ISolone 2-08 mouth ity of (MEDROL, 00:00: SEE-INSTRU [place] as ASH,) 4 mg 00 CTIONS. Medica l tablets follow Branch package directions methylPREDN 2021-11 Yes Take by [facility] ISolone 2-08 mouth ity of (MEDROL, 00:00: SEE-INSTRU [place]SH,) 4 mg 00 CTIONS. Medica l tablets follow Branch package directions methylPREDN 2021-11 Yes Take by [facility] ISolone 2-08 mouth ity of (MEDROL, 00:00: SEE-INSTRU [place],) 4 mg 00 CTIONS. Medica l tablets follow Branch package directions methylPREDN 2021-11 Yes Take by [facility] ISolone 2-08 mouth ity of (MEDROL, 00:00: SEE-INSTRU [place],) 4 mg 00 CTIONS. Medica l tablets follow Branch package directions methylPREDN 2021-11 Yes Take by [facility] ISolone 2-08 mouth ity of (MEDROL, 00:00: SEE-INSTRU [place],) 4 mg 00 CTIONS. Medica l tablets follow Branch package directions methylPREDN 2021-11 Yes Take by [facility] ISolone 2-08 mouth ity of (MEDROL, 00:00: SEE-INSTRU [place],) 4 mg 00 CTIONS. Medica l tablets follow Branch package directions methylPREDN 2021-11 Yes Take by [facility] ISolone -08 mouth ity of (MEDROL, 00:00: SEE-INSTRU [place],) 4 mg 00 CTIONS. Medica l tablets follow Branch package directions methylPREDN 2021-11 Yes Take by [facility] ISolone 2-08 mouth ity of (MEDROL, 00:00: SEE-INSTRU [place],) 4 mg 00 CTIONS. Medica l tablets follow Branch package directions methylPREDN 2021-11 Yes Take by [facility] ISolone 2-08 mouth ity of (MEDROL, 00:00: SEE-INSTRU [place],) 4 mg 00 CTIONS. Medica l tablets follow Branch package directions methylPREDN 2021-11 Yes Take by [facility] ISolone 2-08 mouth ity of (MEDROL, 00:00: SEE-INSTRU [place],) 4 mg 00 CTIONS. Medica l tablets follow Branch package directions methylPREDN 2021-11 Yes Take by [facility] ISolone 2-08 mouth ity of (MEDROL, 00:00: SEE-INSTRU [place],) 4 mg 00 CTIONS. Medica l tablets follow Branch package directions methylPREDN 2021-11 Yes Take by [facility] ISolone 2-08 mouth ity of (MEDROL, 00:00: SEE-INSTRU [place],) 4 mg 00 CTIONS. Medica l tablets follow Branch package directions methylPREDN 2021-11 Yes Take by [facility] ISolone 2-08 mouth ity of (MEDROL, 00:00: SEE-INSTRU [place],) 4 mg 00 CTIONS. Medica l tablets follow Branch package directions methylPREDN 2021-11 Yes Take by [facility] ISolone 2-08 mouth ity of (MEDROL, 00:00: SEE-INSTRU [place],) 4 mg 00 CTIONS. Medica l tablets follow Branch package directions methylPREDN 2021-11 Yes Take by [facility] ISolone 2-08 mouth ity of (MEDROL, 00:00: SEE-INSTRU [place],) 4 mg 00 CTIONS. Medica l tablets follow Branch package directions methylPREDN 2021-11 Yes Take by [facility] ISolone 2-08 mouth ity of (MEDROL, 00:00: SEE-INSTRU [place],) 4 mg 00 CTIONS. Medica l tablets follow Branch package directions methylPREDN 2021-11 Yes Take by [facility] ISolone 2-08 mouth ity of (MEDROL, 00:00: SEE-INSTRU [place],) 4 mg 00 CTIONS. Medica l tablets follow Branch package directions methylPREDN 2021-11 Yes Take by [facility] ISolone 2-08 mouth ity of (MEDROL, 00:00: SEE-INSTRU [place],) 4 mg 00 CTIONS. Medica l tablets follow Branch package directions methylPREDN 2021-11 Yes Take by [facility] ISolone 2-08 mouth ity of (MEDROL, 00:00: SEE-INSTRU [place],) 4 mg 00 CTIONS. Medica l tablets follow Branch package directions methylPREDN 2021-11 Yes Take by [facility] ISolone 2-08 mouth ity of (MEDROL, 00:00: SEE-INSTRU [place],) 4 mg 00 CTIONS. Medica l tablets follow Branch package directions methylPREDN 2021-11 Yes Take by [facility] ISolone 2-08 mouth ity of (MEDROL, 00:00: SEE-INSTRU [place],) 4 mg 00 CTIONS. Medica l tablets follow Branch package directions methylPREDN 2021-11 Yes Take by [facility] ISolone 2-08 mouth ity of (MEDROL, 00:00: SEE-INSTRU [place],) 4 mg 00 CTIONS. Medica l tablets follow Branch package directions methylPREDN 2021-11 Yes Take by [facility] ISolone 2-08 mouth ity of (MEDROL, 00:00: SEE-INSTRU [place],) 4 mg 00 CTIONS. Medica l tablets follow Branch package directions methylPREDN 2021-11 Yes Take by [facility] ISolone 2-08 mouth ity of (MEDROL, 00:00: SEE-INSTRU [place],) 4 mg 00 CTIONS. Medica l tablets follow Branch package directions methylPREDN 2021-11 Yes Take by [facility] ISolone 2-08 mouth ity of (MEDROL, 00:00: SEE-INSTRU [place],) 4 mg 00 CTIONS. Medica l tablets follow Branch package directions methylPREDN 2021-11 Yes Take by [facility] ISolone 2-08 mouth ity of (MEDROL, 00:00: SEE-INSTRU [place],) 4 mg 00 CTIONS. Medica l tablets follow Branch package directions methylPREDN 2021-11 Yes Take by [facility] ISolone 2-08 mouth ity of (MEDROL, 00:00: SEE-INSTRU [place],) 4 mg 00 CTIONS. Medica l tablets follow Branch package directions methylPREDN 2021-11 Yes Take by [facility] ISolone 2-08 mouth ity of (MEDROL, 00:00: SEE-INSTRU [place],) 4 mg 00 CTIONS. Medica l tablets follow Branch package directions indomethaci 2021-11 202- No [id number] 50mg Take 1 [facility] n 50 mg 12-12 12-14 capsule by ity o f capsule 00:00: 05:59 mouth in [place] 00 :00 the Medical morning Branch and 1 capsule at noon and 1 capsule in the evening. Take with meals. Do all this for 5 days. indomethaci 2021-11- No [id number] 50mg Take 1 [facility] n 50 mg 214 capsule by ity o f capsule 00:00: 05:59 mouth in [place] 00 :00 the [facility] morning Branch and 1 capsule at noon and 1 capsule in the evening. Take with meals. Do all this for 5 days. glimepiride 2021-11 Yes [id number] 2mg Take 1 [facility] 2 mg tablet 0-05 tablet by ity of 00:00: mouth in [place] 00 the [facility] morning Branch and 1 tablet in the evening. pioglitazon 2021-11 Yes [id number] 15mg Take 1 [facility] e 15 mg 0-05 tablet by ity of tablet 00:00: mouth in [place] [address] the Medical morning. Branch gabapentin 2021-11 Yes [id number] 600mg Take 1 [facility] 600 mg 0-05 tablet by ity of tablet 00:00: mouth in [place] [address] the [facility] and 1 tablet at noon and 1 tablet in the evening. DULoxetine 2021-11 Yes [id number] 60mg Take 1 [facility] 60 mg 0-05 capsule by ity of capsule 00:00: mouth in [place] 00 the [facility] morning [place] and 1 capsule in the evening. hydrALAZINE 2021-11 Yes [id number] 50mg Take 1 [facility] 50 mg 0-05 tablet by ity of tablet 00:00: mouth in [place] [address] the [facility] and 1 tablet in the evening. furosemide 2021-11 Yes [id number] Take lasix [facility] (LASIX) 40 0-05 02 40 mg BID ity of mg tablet 00:00: [place] [address] Medical Branch metFORMIN 2021-11 Yes [id number] 500mg Take 1 [facility] 500 mg 0-05 tablet by ity of tablet 00:00: mouth in [place] [address] the [facility] morning [place] and 1 tablet in the evening. Take with meals. omeprazole 2021-11 Yes [id number] 40mg Take 1 [facility] 40 mg 0-05 capsule by ity of capsule 00:00: mouth in [place] [address] the Medical morning. Branch potassium 2021-11 Yes [id number] 10meq Take 1 [facility] chloride 10 0-05 02 tablet by ity of mEq CR 00:00: mouth [place] tablet 00 every Medical Saturday, Branch Saturday and Saturday. rosuvastati 2021-11 Yes [id number] 20mg Take 1 [facility] n 20 mg 0-05 tablet by ity of tablet 00:00: mouth in [place] 00 the morning. Branch carvediloL 2021-11 Yes [id number] 25mg Take 1 [facility] 25 mg 0-05 02 tablet by ity of tablet 00:00: mouth in [place] 00 the Medical morning Branch and 1 tablet in the evening. glimepiride 2021-11 Yes [id number] 2mg Take 1 [facility] 2 mg tablet 0-05 tablet by ity of 00:00: mouth in [place] 00 the Medical morning Branch and 1 tablet in the evening. pioglitazon 2021-11 Yes [id number] 15mg Take 1 [facility] e 15 mg 0-05 tablet by ity of tablet 00:00: mouth in [place] 00 the morning. Branch gabapentin 2021-11 Yes [id number] 600mg Take 1 [facility] 600 mg 0-05 tablet by ity of tablet 00:00: mouth in [place] [address] the morning Branch and 1 tablet at noon and 1 tablet in the evening. DULoxetine 2021-11 Yes [id number] 60mg Take 1 [facility] 60 mg 0-05 capsule by ity of capsule 00:00: mouth in [place] [address] the morning [place] and 1 capsule in the evening. hydrALAZINE 2021-11 Yes [id number] 50mg Take 1 [facility] 50 mg 0-05 tablet by ity of tablet 00:00: mouth in [place] [address] the morning [place] and 1 tablet in the evening. furosemide 2021-11 Yes [id number] Take lasix [facility] (LASIX) 40 0-05 02 40 mg BID ity of mg tablet 00:00: [place] 00 Medical [place] metFORMIN 2021-11 Yes [id number] 500mg Take 1 [facility] 500 mg 0-05 tablet by ity of tablet 00:00: mouth in [place] [address] the morning [place] and 1 tablet in the evening. Take with meals. omeprazole 2021-11 Yes [id number] 40mg Take 1 [facility] 40 mg 0-05 capsule by ity of capsule 00:00: mouth in [place] [address] the morning. Branch potassium 2021-11 Yes [id number] 10meq Take 1 [facility] chloride 10 0-05 02 tablet by ity of mEq CR 00:00: mouth [place] tablet 00 every Medical Saturday, Branch Saturday and Saturday. rosuvastati 2021-11 Yes [id number] 20mg Take 1 [facility] n 20 mg 0-05 tablet by ity of tablet 00:00: mouth in [place] 00 the morning. Branch carvediloL 2021-11 Yes [id number] 25mg Take 1 [facility] 25 mg 0-05 02 tablet by ity of tablet 00:00: mouth in [place] [address] the morning Branch and 1 tablet in the evening. glimepiride 2021-11 Yes [id number] 2mg Take 1 [facility] 2 mg tablet 0-05 tablet by ity of 00:00: mouth in [place] [address] the morning Branch and 1 tablet in the evening. pioglitazon 2021-11 Yes [id number] 15mg Take 1 [facility] e 15 mg 0-05 tablet by ity of tablet 00:00: mouth in [place] [address] the morning. Branch gabapentin 2021-11 Yes [id number] 600mg Take 1 [facility] 600 mg 0-05 tablet by ity of tablet 00:00: mouth in [place] [address] the morning [place] and 1 tablet at noon and 1 tablet in the evening. DULoxetine 2021-11 Yes [id number] 60mg Take 1 [facility] 60 mg 0-05 capsule by ity of capsule 00:00: mouth in [place] [address] the [facility] and 1 capsule in the evening. hydrALAZINE 2021-11 Yes [id number] 50mg Take 1 [facility] 50 mg 0-05 tablet by ity of tablet 00:00: mouth in [place] [address] the morning [place] and 1 tablet in the evening. furosemide 2021-11 Yes [id number] Take lasix [facility] (LASIX) 40 0-05 02 40 mg BID ity of mg tablet 00:00: [address] metFORMIN 2021-11 Yes [id number] 500mg Take 1 [facility] 500 mg 0-05 tablet by ity of tablet 00:00: mouth in [place] [address] the [facility] morning [place] and 1 tablet in the evening. Take with meals. omeprazole 2021-11 Yes [id number] 40mg Take 1 [facility] 40 mg 0-05 capsule by ity of capsule 00:00: mouth in [place] [address] the morning. Branch potassium 2021-11 Yes [id number] 10meq Take 1 [facility] chloride 10 0-05 02 tablet by ity of mEq CR 00:00: mouth [place] tablet 00 every Medical Saturday, Branch Saturday and Saturday. rosuvastati 2021-11 Yes [id number] 20mg Take 1 [facility] n 20 mg 0-05 tablet by ity of tablet 00:00: mouth in [place] 00 the Medical morning. Branch carvediloL 2021-11 Yes [id number] 25mg Take 1 [facility] 25 mg 0-05 02 tablet by ity of tablet 00:00: mouth in [place] 00 the Medical morning Branch and 1 tablet in the evening. glimepiride 2021-11 Yes [id number] 2mg Take 1 [facility] 2 mg tablet 0-05 tablet by ity of 00:00: mouth in [place] 00 the morning Branch and 1 tablet in the evening. pioglitazon 2021-11 Yes [id number] 15mg Take 1 [facility] e 15 mg 0-05 tablet by ity of tablet 00:00: mouth in [place] 00 the morning. Branch gabapentin 2021-11 Yes [id number] 600mg Take 1 [facility] 600 mg 0-05 tablet by ity of tablet 00:00: mouth in [place] [address] the morning Branch and 1 tablet at noon and 1 tablet in the evening. DULoxetine 2021-11 Yes [id number] 60mg Take 1 [facility] 60 mg 0-05 capsule by ity of capsule 00:00: mouth in [place] [address] the morning Branch and 1 capsule in the evening. hydrALAZINE 2021-11 Yes [id number] 50mg Take 1 [facility] 50 mg 0-05 tablet by ity of tablet 00:00: mouth in [place] the morning Branch and 1 tablet in the evening. furosemide 2021-11 Yes [id number] Take lasix [facility] (LASIX) 40 0-05 02 40 mg BID ity of mg tablet 00:00: [place] [address] Medical Branch metFORMIN 2021-11 Yes [id number] 500mg Take 1 [facility] 500 mg 0-05 tablet by ity of tablet 00:00: mouth in [place] [address] the Medical morning Branch and 1 tablet in the evening. Take with meals. omeprazole 2021-11 Yes [id number] 40mg Take 1 [facility] 40 mg 0-05 capsule by ity of capsule 00:00: mouth in [place] 00 the morning. Branch potassium 2021-11 Yes [id number] 10meq Take 1 [facility] chloride 10 0-05 02 tablet by ity of mEq CR 00:00: mouth [place] tablet 00 every Medical Saturday, Branch Saturday and Saturday. rosuvastati 2021-11 Yes [id number] 20mg Take 1 [facility] n 20 mg 0-05 tablet by ity of tablet 00:00: mouth in [place] 00 the morning. Branch carvediloL 2021-11 Yes [id number] 25mg Take 1 [facility] 25 mg 0-05 02 tablet by ity of tablet 00:00: mouth in [place] 00 the Medical morning Branch and 1 tablet in the evening. glimepiride 2021-11 Yes [id number] 2mg Take 1 [facility] 2 mg tablet 0-05 tablet by ity of 00:00: mouth in [place] [address] the Medical morning Branch and 1 tablet in the evening. pioglitazon 2021-11 Yes [id number] 15mg Take 1 [facility] e 15 mg 0-05 tablet by ity of tablet 00:00: mouth in [place] [address] the morning. Branch gabapentin 2021-11 Yes [id number] 600mg Take 1 [facility] 600 mg 0-05 tablet by ity of tablet 00:00: mouth in [place] [address] the Medical morning Branch and 1 tablet at noon and 1 tablet in the evening. DULoxetine 2021-11 Yes [id number] 60mg Take 1 [facility] 60 mg 0-05 capsule by ity of capsule 00:00: mouth in [place] [address] the Medical morning Branch and 1 capsule in the evening. hydrALAZINE 2021-11 Yes [id number] 50mg Take 1 [facility] 50 mg 0-05 tablet by ity of tablet 00:00: mouth in [place] 00 the Medical morning Branch and 1 tablet in the evening. furosemide 2021-11 Yes [id number] Take lasix [facility] (LASIX) 40 0-05 02 40 mg BID ity of mg tablet 00:00: [address] metFORMIN 2021-11 Yes [id number] 500mg Take 1 [facility] 500 mg 0-05 tablet by ity of tablet 00:00: mouth in [place] [address] the [facility] morning Branch and 1 tablet in the evening. Take with meals. omeprazole 2021-11 Yes [id number] 40mg Take 1 [facility] 40 mg 0-05 capsule by ity of capsule 00:00: mouth in [place] [address] the morning. Branch potassium 2021-11 Yes [id number] 10meq Take 1 [facility] chloride 10 0-05 02 tablet by ity of mEq CR 00:00: mouth [place] tablet 00 every Medical Saturday, Branch Saturday and Saturday. rosuvastati 2021-11 Yes [id number] 20mg Take 1 [facility] n 20 mg 0-05 tablet by ity of tablet 00:00: mouth in [place] the morning. Branch carvediloL 2021-11 Yes [id number] 25mg Take 1 [facility] 25 mg 0-05 02 tablet by ity of tablet 00:00: mouth in [place] 00 the Medical morning Branch and 1 tablet in the evening. glimepiride 2021-11 Yes [id number] 2mg Take 1 [facility] 2 mg tablet 0-05 tablet by ity of 00:00: mouth in [place] [address] the morning [place] and 1 tablet in the evening. pioglitazon 2021-11 Yes [id number] 15mg Take 1 [facility] e 15 mg 0-05 tablet by ity of tablet 00:00: mouth in [place] the morning. Branch gabapentin 2021-11 Yes [id number] 600mg Take 1 [facility] 600 mg 0-05 tablet by ity of tablet 00:00: mouth in [place] [address] the [facility] morning [place] and 1 tablet at noon and 1 tablet in the evening. DULoxetine 2021-11 Yes [id number] 60mg Take 1 [facility] 60 mg 0-05 capsule by ity of capsule 00:00: mouth in [place] [address] the [facility] morning [place] and 1 capsule in the evening. hydrALAZINE 2021-11 Yes [id number] 50mg Take 1 [facility] 50 mg 0-05 tablet by ity of tablet 00:00: mouth in [place] [address] the [facility] morning Sur[place] and 1 tablet in the evening. furosemide 2021-11 Yes [id number] Take lasix [facility] (LASIX) 40 0-05 02 40 mg BID ity of mg tablet 00:00: [address] metFORMIN 2021-11 Yes [id number] 500mg Take 1 [facility] 500 mg 0-05 tablet by ity of tablet 00:00: mouth in [place] [address] the [facility] morning [place] and 1 tablet in the evening. Take with meals. omeprazole 2021-11 Yes [id number] 40mg Take 1 [facility] 40 mg 0-05 capsule by ity of capsule 00:00: mouth in [place] 00 the morning. Branch potassium 2021-11 Yes [id number] 10meq Take 1 [facility] chloride 10 0-05 02 tablet by ity of mEq CR 00:00: mouth [place] tablet 00 every Medical Saturday, Branch Saturday and Saturday. rosuvastati 2021-11 Yes [id number] 20mg Take 1 [facility] n 20 mg 0-05 tablet by ity of tablet 00:00: mouth in [place] 00 the morning. Branch carvediloL 2021-11 Yes [id number] 25mg Take 1 [facility] 25 mg 0-05 02 tablet by ity of tablet 00:00: mouth in [place] 00 the Medical morning Branch and 1 tablet in the evening. glimepiride 2021-11 Yes [id number] 2mg Take 1 [facility] 2 mg tablet 0-05 tablet by ity of 00:00: mouth in [place] 00 the Medical morning Branch and 1 tablet in the evening. pioglitazon 2021-11 Yes [id number] 15mg Take 1 [facility] e 15 mg 0-05 tablet by ity of tablet 00:00: mouth in [place] 00 the morning. Branch gabapentin 2021-11 Yes [id number] 600mg Take 1 [facility] 600 mg 0-05 tablet by ity of tablet 00:00: mouth in [place] the morning Branch and 1 tablet at noon and 1 tablet in the evening. DULoxetine 2021-11 Yes [id number] 60mg Take 1 [facility] 60 mg 0-05 capsule by ity of capsule 00:00: mouth in [place] [address] the Medical morning Branch and 1 capsule in the evening. hydrALAZINE 2021-11 Yes [id number] 50mg Take 1 [facility] 50 mg 0-05 tablet by ity of tablet 00:00: mouth in [place] 00 the Medical morning Branch and 1 tablet in the evening. furosemide 2021-11 Yes [id number] Take lasix [facility] (LASIX) 40 0-05 02 40 mg BID ity of mg tablet 00:00: [place] [address] Medical Branch metFORMIN 2021-11 Yes [id number] 500mg Take 1 [facility] 500 mg 0-05 tablet by ity of tablet 00:00: mouth in [place] [address] the Medical morning Branch and 1 tablet in the evening. Take with meals. omeprazole 2021-11 Yes [id number] 40mg Take 1 [facility] 40 mg 0-05 capsule by ity of capsule 00:00: mouth in [place] 00 the morning. Branch potassium 2021-11 Yes [id number] 10meq Take 1 [facility] chloride 10 0-05 02 tablet by ity of mEq CR 00:00: mouth [place] tablet 00 every Medical Saturday, Branch Saturday and Saturday. rosuvastati 2021-11 Yes [id number] 20mg Take 1 [facility] n 20 mg 0-05 tablet by [facility] tablet 00:00: mouth in [place] 00 the morning. Branch carvediloL 2021-11 Yes [id number] 25mg Take 1 [facility] 25 mg 0-05 02 tablet by [facility] tablet 00:00: mouth in [place] the morning Branch and 1 tablet in the evening. glimepiride 2021-11 Yes [id number] 2mg Take 1 [facility] 2 mg tablet 0-05 tablet by [facility] of 00:00: mouth in [place] the morning Branch and 1 tablet in the evening. pioglitazon 2021-11 Yes [id number] 15mg Take 1 [facility] e 15 mg 0-05 tablet by [facility] tablet 00:00: mouth in [place] 00 the morning. Branch gabapentin 2021-11 Yes [id number] 600mg Take 1 [facility] 600 mg 0-05 tablet by [facility] of tablet 00:00: mouth in [place] the morning Branch and 1 tablet at noon and 1 tablet in the evening. DULoxetine 2021-11 Yes [id number] 60mg Take 1 [facility] 60 mg 0-05 capsule by [facility] of capsule 00:00: mouth in [place] the morning Branch and 1 capsule in the evening. hydrALAZINE 2021-11 Yes [id number] 50mg Take 1 [facility] 50 mg 0-05 tablet by [facility] of tablet 00:00: mouth in [place] the morning Branch and 1 tablet in the evening. furosemide 2021-11 Yes [id number] Take lasix [facility] (LASIX) 40 0-05 02 40 mg BID it[facility] of mg tablet 00:00: [place] [address] Medical [place] metFORMIN 2021-11 Yes [id number] 500mg Take 1 [facility] 500 mg 0-05 tablet by [facility] of tablet 00:00: mouth in [place] [address] the morning [place] and 1 tablet in the evening. Take with meals. omeprazole 2021-11 Yes [id number] 40mg Take 1 [facility] 40 mg 0-05 capsule by [facility] of capsule 00:00: mouth in [place] 00 the morning. Branch potassium 2021-11 Yes [id number] 10meq Take 1 [facility] chloride 10 0-05 02 tablet by [facility] of mEq CR 00:00: mouth [place] tablet 00 every Medical Saturday, Branch Saturday and Saturday. rosuvastati 2021-11 Yes [id number] 20mg Take 1 [facility] n 20 mg 0-05 tablet by [facility] of tablet 00:00: mouth in [place] 00 the morning. Branch carvediloL 2021-11 Yes [id number] 25mg Take 1 [facility] 25 mg 0-05 02 tablet by [facility] of tablet 00:00: mouth in [place] the morning Branch and 1 tablet in the evening. glimepiride 2021-11 Yes [id number] 2mg Take 1 [facility] 2 mg tablet 0-05 tablet by [facility] of 00:00: mouth in [place] [address] the Medical morning Branch and 1 tablet in the evening. pioglitazon 2021-11 Yes [id number] 15mg Take 1 [facility] e 15 mg 0-05 tablet by [facility] of tablet 00:00: mouth in [place] 00 the morning. Branch gabapentin 2021-11 Yes [id number] 600mg Take 1 [facility] 600 mg 0-05 tablet by [facility] of tablet 00:00: mouth in [place] the morning Branch and 1 tablet at noon and 1 tablet in the evening. DULoxetine 2021-11 Yes [id number] 60mg Take 1 [facility] 60 mg 0-05 capsule by [facility] of capsule 00:00: mouth in [place] [address] the morning Branch and 1 capsule in the evening. hydrALAZINE 2021-11 Yes [id number] 50mg Take 1 [facility] 50 mg 0-05 tablet by [facility] tablet 00:00: mouth in [place] [address] the morning Branch and 1 tablet in the evening. furosemide 2021-11 Yes [id number] Take lasix [facility] (LASIX) 40 0-05 02 40 mg BID [facility] of mg tablet 00:00: [place] [address] Medical Branch metFORMIN 2021-11 Yes [id number] 500mg Take 1 [facility] 500 mg 0-05 tablet by [facility] of tablet 00:00: mouth in [place] [address] the Medical morning Branch and 1 tablet in the evening. Take with meals. omeprazole 2021-11 Yes [id number] 40mg Take 1 [facility] 40 mg 0-05 capsule by [facility] of capsule 00:00: mouth in [place] the . Branch potassium 2021-11 Yes [id number] 10meq Take 1 [facility] chloride 10 0-05 02 tablet by [facility] of mEq CR 00:00: mouth [place] tablet 00 every Medical Saturday, Branch Saturday and Saturday. rosuvastati 2021-11 Yes [id number] 20mg Take 1 [facility] n 20 mg 0-05 tablet by [facility] of tablet 00:00: mouth in [place] 00 the morning. Branch carvediloL 2021-11 Yes [id number] 25mg Take 1 [facility] 25 mg 0-05 02 tablet by [facility] of tablet 00:00: mouth in [place] the morning Branch and 1 tablet in the evening. glimepiride 2021-11 Yes [id number] 2mg Take 1 [facility] 2 mg tablet 0-05 tablet by [facility] of 00:00: mouth in [place] the morning Branch and 1 tablet in the evening. pioglitazon 2021-11 Yes [id number] 15mg Take 1 [facility] e 15 mg 0-05 tablet by [facility] of tablet 00:00: mouth in [place] the . Branch gabapentin 2021-11 Yes [id number] 600mg Take 1 [facility] 600 mg 0-05 tablet by [facility] of tablet 00:00: mouth in [place] [address] the morning Branch and 1 tablet at noon and 1 tablet in the evening. DULoxetine 2021-11 Yes [id number] 60mg Take 1 [facility] 60 mg 0-05 capsule by [facility] of capsule 00:00: mouth in [place] the morning Branch and 1 capsule in the evening. hydrALAZINE 2021-11 Yes [id number] 50mg Take 1 [facility] 50 mg 0-05 tablet by [facility] of tablet 00:00: mouth in [place] the morning Branch and 1 tablet in the evening. furosemide 2021-11 Yes [id number] Take lasix [facility] (LASIX) 40 0-05 02 40 mg BID [facility] of mg tablet 00:00: [place] [address] Medical [place] metFORMIN 2021-11 Yes [id number] 500mg Take 1 [facility] 500 mg 0-05 tablet by [facility] of tablet 00:00: mouth in [place] [address] the morning Branch and 1 tablet in the evening. Take with meals. omeprazole 2021-11 Yes [id number] 40mg Take 1 [facility] 40 mg 0-05 capsule by [facility] of capsule 00:00: mouth in [place] the . Branch potassium 2021-11 Yes [id number] 10meq Take 1 [facility] chloride 10 0-05 02 tablet by [facility] of mEq CR 00:00: mouth [place] tablet 00 every Medical Saturday, Branch Saturday and Saturday. rosuvastati 2021-11 Yes [id number] 20mg Take 1 [facility] n 20 mg 0-05 tablet by [facility] of tablet 00:00: mouth in [place] the morning. Branch carvediloL 2021-11 Yes [id number] 25mg Take 1 [facility] 25 mg 0-05 02 tablet by [facility] of tablet 00:00: mouth in [place] [address] the morning [place] and 1 tablet in the evening. glimepiride 2021-11 Yes [id number] 2mg Take 1 [facility] 2 mg tablet 0-05 tablet by [facility] of 00:00: mouth in [place] [address] the morning Sur[place] and 1 tablet in the evening. pioglitazon 2021-11 Yes [id number] 15mg Take 1 [facility] e 15 mg 0-05 tablet by [facility] of tablet 00:00: mouth in [place] [address] the . Branch gabapentin 2021-11 Yes [id number] 600mg Take 1 [facility] 600 mg 0-05 tablet by [facility] of tablet 00:00: mouth in [place] [address] the morning Sur[place] and 1 tablet at noon and 1 tablet in the evening. DULoxetine 2021-11 Yes [id number] 60mg Take 1 [facility] 60 mg 0-05 capsule by [facility] of capsule 00:00: mouth in [place] [address] the morning Sur[place] and 1 capsule in the evening. hydrALAZINE 2021-11 Yes [id number] 50mg Take 1 [facility] 50 mg 0-05 tablet by [facility] of tablet 00:00: mouth in [place] [address] the morning Sur[place] and 1 tablet in the evening. furosemide 2021-11 Yes [id number] Take lasix [facility] (LASIX) 40 0-05 02 40 mg BID [facility] of mg tablet 00:00: [place] [address] Medical [place] metFORMIN 2021-11 Yes [id number] 500mg Take 1 [facility] 500 mg 0-05 tablet by [facility] of tablet 00:00: mouth in [place] the morning Branch and 1 tablet in the evening. Take with meals. omeprazole 2021-11 Yes [id number] 40mg Take 1 [facility] 40 mg 0-05 capsule by [facility] of capsule 00:00: mouth in [place] the . Branch potassium 2021-11 Yes [id number] 10meq Take 1 [facility] chloride 10 0-05 02 tablet by [facility] of mEq CR 00:00: mouth [place] tablet 00 every Medical Saturday, Branch Saturday and Saturday. rosuvastati 2021-11 Yes [id number] 20mg Take 1 [facility] n 20 mg 0-05 tablet by [facility] of tablet 00:00: mouth in [place] the . Branch carvediloL 2021-11 Yes [id number] 25mg Take 1 [facility] 25 mg 0-05 02 tablet by [facility] of tablet 00:00: mouth in [place] [address] the morning Branch and 1 tablet in the evening. glimepiride 2021-11 Yes [id number] 2mg Take 1 [facility] 2 mg tablet 0-05 tablet by [facility] of 00:00: mouth in [place] [address] the morning Branch and 1 tablet in the evening. pioglitazon 2021-11 Yes [id number] 15mg Take 1 [facility] e 15 mg 0-05 tablet by [facility] of tablet 00:00: mouth in [place] the . Branch gabapentin 2021-11 Yes [id number] 600mg Take 1 [facility] 600 mg 0-05 tablet by [facility] of tablet 00:00: mouth in [place] [address] the morning Branch and 1 tablet at noon and 1 tablet in the evening. DULoxetine 2021-11 Yes [id number] 60mg Take 1 [facility] 60 mg 0-05 capsule by [facility] of capsule 00:00: mouth in [place] [address] the Medical morning Branch and 1 capsule in the evening. hydrALAZINE 2021-11 Yes [id number] 50mg Take 1 [facility] 50 mg 0-05 tablet by [facility] of tablet 00:00: mouth in [place] [address] the morning Branch and 1 tablet in the evening. furosemide 2021-11 Yes [id number] Take lasix [facility] (LASIX) 40 0-05 02 40 mg BID [facility] of mg tablet 00:00: [place] [address] Medical Branch metFORMIN 2021-11 Yes [id number] 500mg Take 1 [facility] 500 mg 0-05 tablet by [facility] of tablet 00:00: mouth in [place] the morning Branch and 1 tablet in the evening. Take with meals. omeprazole 2021-11 Yes [id number] 40mg Take 1 [facility] 40 mg 0-05 capsule by [facility] of capsule 00:00: mouth in [place] 00 the morning. Branch potassium 2021-11 Yes [id number] 10meq Take 1 [facility] chloride 10 0-05 02 tablet by [facility] of mEq CR 00:00: mouth [place] tablet 00 every Medical Saturday, Branch Saturday and Saturday. rosuvastati 2021-11 Yes [id number] 20mg Take 1 [facility] n 20 mg 0-05 tablet by [facility] of tablet 00:00: mouth in [place] the . Branch carvediloL 2021-11 Yes [id number] 25mg Take 1 [facility] 25 mg 0-05 02 tablet by [facility] of tablet 00:00: mouth in [place] [address] the morning Branch and 1 tablet in the evening. glimepiride 2021-11 Yes [id number] 2mg Take 1 [facility] 2 mg tablet 0-05 tablet by [facility] of 00:00: mouth in [place] [address] the morning Branch and 1 tablet in the evening. pioglitazon 2021-11 Yes [id number] 15mg Take 1 [facility] e 15 mg 0-05 tablet by [facility] of tablet 00:00: mouth in [place] the . Branch gabapentin 2021-11 Yes [id number] 600mg Take 1 [facility] 600 mg 0-05 tablet by [facility] of tablet 00:00: mouth in [place] [address] the morning Branch and 1 tablet at noon and 1 tablet in the evening. DULoxetine 2021-11 Yes [id number] 60mg Take 1 [facility] 60 mg 0-05 capsule by [facility] of capsule 00:00: mouth in [place] [address] the morning Branch and 1 capsule in the evening. hydrALAZINE 2021-11 Yes [id number] 50mg Take 1 [facility] 50 mg 0-05 tablet by it[facility] of tablet 00:00: mouth in [place] [address] the [facility] morning Branch and 1 tablet in the evening. furosemide 2021-11 Yes [id number] Take lasix [facility] (LASIX) 40 0-05 02 40 mg BID it[facility] of mg tablet 00:00: [place] 00 Medical Branch metFORMIN 2021-11 Yes [id number] 500mg Take 1 [facility] 500 mg 0-05 tablet by ity of tablet 00:00: mouth in [place] 00 the morning Branch and 1 tablet in the evening. Take with meals. omeprazole 2021-11 Yes [id number] 40mg Take 1 [facility] 40 mg 0-05 capsule by it[facility] of capsule 00:00: mouth in [place] 00 the morning. Branch potassium 2021-11 Yes [id number] 10meq Take 1 [facility] chloride 10 0-05 02 tablet by ity of mEq CR 00:00: mouth [place] tablet 00 every Medical Saturday, Branch Saturday and Saturday. rosuvastati 2021-11 Yes [id number] 20mg Take 1 [facility] n 20 mg 0-05 tablet by it[facility] of tablet 00:00: mouth in [place] 00 the morning. Branch carvediloL 2021-11 Yes [id number] 25mg Take 1 [facility] 25 mg 0-05 02 tablet by it[facility] of tablet 00:00: mouth in [place] 00 the Medical morning Branch and 1 tablet in the evening. glimepiride 2021-11 Yes [id number] 2mg Take 1 [facility] 2 mg tablet 0-05 tablet by it[facility] of 00:00: mouth in [place] the Medical morning Branch and 1 tablet in the evening. pioglitazon 2021-11 Yes [id number] 15mg Take 1 [facility] e 15 mg 0-05 tablet by it[facility] of tablet 00:00: mouth in [place] 00 the morning. Branch gabapentin 2021-11 Yes [id number] 600mg Take 1 [facility] 600 mg 0-05 tablet by it[facility] of tablet 00:00: mouth in [place] [address] the Medical morning Branch and 1 tablet at noon and 1 tablet in the evening. DULoxetine 2021-11 Yes [id number] 60mg Take 1 [facility] 60 mg 0-05 capsule by it[facility] of capsule 00:00: mouth in [place] 00 the Medical morning Branch and 1 capsule in the evening. hydrALAZINE 2021-11 Yes [id number] 50mg Take 1 [facility] 50 mg 0-05 tablet by it[facility] of tablet 00:00: mouth in [place] [address] the Medical morning Branch and 1 tablet in the evening. furosemide 2021-11 Yes [id number] Take lasix [facility] (LASIX) 40 0-05 02 40 mg BID it[facility] of mg tablet 00:00: [place] 00 Medical [place] metFORMIN 2021-11 Yes [id number] 500mg Take 1 [facility] 500 mg 0-05 tablet by it[facility] of tablet 00:00: mouth in [place] [address] the morning Branch and 1 tablet in the evening. Take with meals. omeprazole 2021-11 Yes [id number] 40mg Take 1 [facility] 40 mg 0-05 capsule by it[facility] of capsule 00:00: mouth in [place] 00 the . Branch potassium 2021-11 Yes [id number] 10meq Take 1 [facility] chloride 10 0-05 02 tablet by ity of mEq CR 00:00: mouth [place] tablet 00 every Medical Saturday, Branch Saturday and Saturday. rosuvastati 2021-11 Yes [id number] 20mg Take 1 [facility] n 20 mg 0-05 tablet by ity of tablet 00:00: mouth in [place] 00 the . Branch carvediloL 2021-11 Yes [id number] 25mg Take 1 [facility] 25 mg 0-05 02 tablet by ity of tablet 00:00: mouth in [place] [address] the [facility] and 1 tablet in the evening. glimepiride 2021-11 Yes [id number] 2mg Take 1 [facility] 2 mg tablet 0-05 tablet by ity of 00:00: mouth in [place] [address] the [facility] and 1 tablet in the evening. pioglitazon 2021-11 Yes [id number] 15mg Take 1 [facility] e 15 mg 0-05 tablet by ity of tablet 00:00: mouth in [place] [address] the . Branch gabapentin 2021-11 Yes [id number] 600mg Take 1 [facility] 600 mg 0-05 tablet by ity of tablet 00:00: mouth in [place] [address] the [facility] morning Surrency and 1 tablet at noon and 1 tablet in the evening. DULoxetine 2021-11 Yes [id number] 60mg Take 1 [facility] 60 mg 0-05 capsule by ity of capsule 00:00: mouth in [place] [address] the [facility] and 1 capsule in the evening. hydrALAZINE 2021-11 Yes [id number] 50mg Take 1 [facility] 50 mg 0-05 tablet by ity of tablet 00:00: mouth in [place] [address] the [facility] and 1 tablet in the evening. furosemide 2021-11 Yes [id number] Take lasix [facility] (LASIX) 40 0-05 02 40 mg BID ity of mg tablet 00:00: [place] 00 Medical Branch omeprazole 2021-11 Yes [id number] 40mg Take 1 [facility] 40 mg 0-05 capsule by ity of capsule 00:00: mouth in [place] the Medical morning. Branch potassium 2021-11 Yes [id number] 10meq Take 1 [facility] chloride 10 0-05 02 tablet by ity of mEq CR 00:00: mouth [place] tablet 00 every Medical Saturday, Branch Saturday and Saturday. rosuvastati 2021-11 Yes [id number] 20mg Take 1 [facility] n 20 mg 0-05 tablet by ity of tablet 00:00: mouth in [place] the Medical morning. Branch carvediloL 2021-11 Yes [id number] 25mg Take 1 [facility] 25 mg 0-05 02 tablet by ity of tablet 00:00: mouth in [place] the Medical morning Branch and 1 tablet in the evening. pioglitazon 2021-11 Yes [id number] 15mg Take 1 [facility] e 15 mg 0-05 tablet by ity of tablet 00:00: mouth in [place] the Medical morning. Branch gabapentin 2021-11 Yes [id number] 600mg Take 1 [facility] 600 mg 0-05 tablet by ity of tablet 00:00: mouth in [place] the Medical morning Branch and 1 tablet at noon and 1 tablet in the evening. DULoxetine 2021-11 Yes [id number] 60mg Take 1 [facility] 60 mg 0-05 capsule by ity of capsule 00:00: mouth in [place] the Medical morning Branch and 1 capsule in the evening. hydrALAZINE 2021-11 Yes [id number] 50mg Take 1 [facility] 50 mg 0-05 tablet by ity of tablet 00:00: mouth in [place] the Medical morning Branch and 1 tablet in the evening. furosemide 2021-11 Yes [id number] Take lasix [facility] (LASIX) 40 0-05 02 40 mg BID ity of mg tablet 00:00: [place] 00 Medical Branch omeprazole 2021-11 Yes [id number] 40mg Take 1 [facility] 40 mg 0-05 capsule by ity of capsule 00:00: mouth in [place] the Medical morning. Branch potassium 2021-11 Yes [id number] 10meq Take 1 [facility] chloride 10 0-05 02 tablet by ity of mEq CR 00:00: mouth [place] tablet 00 every Medical Saturday, Branch Saturday and Saturday. rosuvastati 2021-11 Yes [id number] 20mg Take 1 [facility] n 20 mg 0-05 tablet by ity of tablet 00:00: mouth in [place] the morning. Branch carvediloL 2021-11 Yes [id number] 25mg Take 1 [facility] 25 mg 0-05 02 tablet by ity of tablet 00:00: mouth in [place] the Medical morning Branch and 1 tablet in the evening. pioglitazon 2021-11 Yes [id number] 15mg Take 1 [facility] e 15 mg 0-05 tablet by ity of tablet 00:00: mouth in [place] the morning. Branch gabapentin 2021-11 Yes [id number] 600mg Take 1 [facility] 600 mg 0-05 tablet by ity of tablet 00:00: mouth in [place] the Medical morning Branch and 1 tablet at noon and 1 tablet in the evening. DULoxetine 2021-11 Yes [id number] 60mg Take 1 [facility] 60 mg 0-05 capsule by ity of capsule 00:00: mouth in [place] the Medical morning Branch and 1 capsule in the evening. hydrALAZINE 2021-11 Yes [id number] 50mg Take 1 [facility] 50 mg 0-05 tablet by ity of tablet 00:00: mouth in [place] the Medical morning Branch and 1 tablet in the evening. furosemide 2021-11 Yes [id number] Take lasix [facility] (LASIX) 40 0-05 02 40 mg BID ity of mg tablet 00:00: [place] 00 Medical Branch omeprazole 2021-11 Yes [id number] 40mg Take 1 [facility] 40 mg 0-05 capsule by ity of capsule 00:00: mouth in [place] the morning. Branch potassium 2021-11 Yes [id number] 10meq Take 1 [facility] chloride 10 0-05 02 tablet by ity of mEq CR 00:00: mouth [place] tablet 00 every Medical Saturday, Branch Saturday and Saturday. rosuvastati 2021-11 Yes [id number] 20mg Take 1 [facility] n 20 mg 0-05 tablet by ity of tablet 00:00: mouth in [place] the morning. Branch carvediloL 2021-11 Yes [id number] 25mg Take 1 [facility] 25 mg 0-05 02 tablet by ity of tablet 00:00: mouth in [place] 00 the Medical morning Branch and 1 tablet in the evening. pioglitazon 2021-11 Yes [id number] 15mg Take 1 [facility] e 15 mg 0-05 tablet by ity of tablet 00:00: mouth in [place] the morning. Branch gabapentin 2021-11 Yes [id number] 600mg Take 1 [facility] 600 mg 0-05 tablet by ity of tablet 00:00: mouth in [place] the morning Branch and 1 tablet at noon and 1 tablet in the evening. DULoxetine 2021-11 Yes [id number] 60mg Take 1 [facility] 60 mg 0-05 capsule by ity of capsule 00:00: mouth in [place] the Medical morning Branch and 1 capsule in the evening. hydrALAZINE 2021-11 Yes [id number] 50mg Take 1 [facility] 50 mg 0-05 tablet by ity of tablet 00:00: mouth in [place] the morning Branch and 1 tablet in the evening. furosemide 2021-11 Yes [id number] Take lasix [facility] (LASIX) 40 0-05 02 40 mg BID ity of mg tablet 00:00: [place] 00 [facility] omeprazole 2021-11 Yes [id number] 40mg Take 1 [facility] 40 mg 0-05 capsule by ity of capsule 00:00: mouth in [place] the morning. Branch potassium 2021-11 Yes [id number] 10meq Take 1 [facility] chloride 10 0-05 02 tablet by ity of mEq CR 00:00: mouth [place] tablet 00 every Medical Saturday, Branch Saturday and Saturday. rosuvastati 2021-11 Yes [id number] 20mg Take 1 [facility] n 20 mg 0-05 tablet by ity of tablet 00:00: mouth in [place] the morning. Branch carvediloL 2021-11 Yes [id number] 25mg Take 1 [facility] 25 mg 0-05 02 tablet by ity of tablet 00:00: mouth in [place] the Medical morning Branch and 1 tablet in the evening. pioglitazon 2021-11 Yes [id number] 15mg Take 1 [facility] e 15 mg 0-05 tablet by ity of tablet 00:00: mouth in [place] the morning. Branch gabapentin 2021-11 Yes [id number] 600mg Take 1 [facility] 600 mg 0-05 tablet by ity of tablet 00:00: mouth in [place] 00 the morning Branch and 1 tablet at noon and 1 tablet in the evening. DULoxetine 2021-11 Yes [id number] 60mg Take 1 [facility] 60 mg 0-05 capsule by ity of capsule 00:00: mouth in [place] the morning Branch and 1 capsule in the evening. hydrALAZINE 2021-11 Yes [id number] 50mg Take 1 [facility] 50 mg 0-05 tablet by ity of tablet 00:00: mouth in [place] the morning Branch and 1 tablet in the evening. furosemide 2021-11 Yes [id number] Take lasix [facility] (LASIX) 40 0-05 02 40 mg BID ity of mg tablet 00:00: [address] omeprazole 2021-11 Yes [id number] 40mg Take 1 [facility] 40 mg 0-05 capsule by ity of capsule 00:00: mouth in [place] the . Branch potassium 2021-11 Yes [id number] 10meq Take 1 [facility] chloride 10 0-05 02 tablet by ity of mEq CR 00:00: mouth [place] tablet 00 every Medical Saturday, Branch Saturday and Saturday. rosuvastati 2021-11 Yes [id number] 20mg Take 1 [facility] n 20 mg 0-05 tablet by ity of tablet 00:00: mouth in [place] the . Branch carvediloL 2021-11 Yes [id number] 25mg Take 1 [facility] 25 mg 0-05 02 tablet by ity of tablet 00:00: mouth in [place] the morning Branch and 1 tablet in the evening. pioglitazon 2021-11 Yes [id number] 15mg Take 1 [facility] e 15 mg 0-05 tablet by ity of tablet 00:00: mouth in [place] the morning. Branch gabapentin 2021-11 Yes [id number] 600mg Take 1 [facility] 600 mg 0-05 tablet by ity of tablet 00:00: mouth in [place] the morning Branch and 1 tablet at noon and 1 tablet in the evening. DULoxetine 2021-11 Yes [id number] 60mg Take 1 [facility] 60 mg 0-05 capsule by ity of capsule 00:00: mouth in [place] [address] the morning Branch and 1 capsule in the evening. hydrALAZINE 2021-11 Yes [id number] 50mg Take 1 [facility] 50 mg 0-05 tablet by ity of tablet 00:00: mouth in [place] 00 the Medical morning Branch and 1 tablet in the evening. furosemide 2021-11 Yes [id number] Take lasix [facility] (LASIX) 40 0-05 02 40 mg BID ity of mg tablet 00:00: [place] 00 Medical Branch omeprazole 2021-11 Yes [id number] 40mg Take 1 [facility] 40 mg 0-05 capsule by ity of capsule 00:00: mouth in [place] 00 the morning. Branch potassium 2021-11 Yes [id number] 10meq Take 1 [facility] chloride 10 0-05 02 tablet by ity of mEq CR 00:00: mouth [place] tablet 00 every Medical Saturday, Branch Saturday and Saturday. rosuvastati 2021-11 Yes [id number] 20mg Take 1 [facility] n 20 mg 0-05 tablet by ity of tablet 00:00: mouth in [place] 00 the morning. Branch carvediloL 2021-11 Yes [id number] 25mg Take 1 [facility] 25 mg 0-05 02 tablet by ity of tablet 00:00: mouth in [place] [address] the Medical morning Branch and 1 tablet in the evening. pioglitazon 2021-11 Yes [id number] 15mg Take 1 [facility] e 15 mg 0-05 tablet by ity of tablet 00:00: mouth in [place] 00 the morning. Branch gabapentin 2021-11 Yes [id number] 600mg Take 1 [facility] 600 mg 0-05 tablet by ity of tablet 00:00: mouth in [place] [address] the Medical morning Branch and 1 tablet at noon and 1 tablet in the evening. DULoxetine 2021-11 Yes [id number] 60mg Take 1 [facility] 60 mg 0-05 capsule by ity of capsule 00:00: mouth in [place] [address] the Medical morning Branch and 1 capsule in the evening. hydrALAZINE 2021-11 Yes [id number] 50mg Take 1 [facility] 50 mg 0-05 tablet by ity of tablet 00:00: mouth in [place] [address] the Medical morning Branch and 1 tablet in the evening. furosemide 2021-11 Yes [id number] Take lasix [facility] (LASIX) 40 0-05 02 40 mg BID ity of mg tablet 00:00: [place] 00 Medical Branch omeprazole 2021-11 Yes [id number] 40mg Take 1 [facility] 40 mg 0-05 capsule by ity of capsule 00:00: mouth in [place] the morning. Branch potassium 2021-11 Yes [id number] 10meq Take 1 [facility] chloride 10 0-05 02 tablet by ity of mEq CR 00:00: mouth [place] tablet 00 every Medical Saturday, Branch Saturday and Saturday. rosuvastati 2021-11 Yes [id number] 20mg Take 1 [facility] n 20 mg 0-05 tablet by ity of tablet 00:00: mouth in [place] the morning. Branch carvediloL 2021-11 Yes [id number] 25mg Take 1 [facility] 25 mg 0-05 02 tablet by ity of tablet 00:00: mouth in [place] the morning Branch and 1 tablet in the evening. pioglitazon 2021-11 Yes [id number] 15mg Take 1 [facility] e 15 mg 0-05 tablet by ity of tablet 00:00: mouth in [place] the morning. Branch gabapentin 2021-11 Yes [id number] 600mg Take 1 [facility] 600 mg 0-05 tablet by ity of tablet 00:00: mouth in [place] the morning Branch and 1 tablet at noon and 1 tablet in the evening. DULoxetine 2021-11 Yes [id number] 60mg Take 1 [facility] 60 mg 0-05 capsule by ity of capsule 00:00: mouth in [place] the morning Branch and 1 capsule in the evening. hydrALAZINE 2021-11 Yes [id number] 50mg Take 1 [facility] 50 mg 0-05 tablet by ity of tablet 00:00: mouth in [place] the morning Branch and 1 tablet in the evening. furosemide 2021-11 Yes [id number] Take lasix [facility] (LASIX) 40 0-05 02 40 mg BID ity of mg tablet 00:00: [place] 00 [facility] [place] omeprazole 2021-11 Yes [id number] 40mg Take 1 [facility] 40 mg 0-05 capsule by [facility] of capsule 00:00: mouth in [place] the morning. Branch potassium 2021-11 Yes [id number] 10meq Take 1 [facility] chloride 10 0-05 02 tablet by ity of mEq CR 00:00: mouth [place] tablet 00 every Medical Saturday, Branch Saturday and Saturday. rosuvastati 2021-11 Yes [id number] 20mg Take 1 [facility] n 20 mg 0-05 tablet by [facility] of tablet 00:00: mouth in [place] the morning. Branch carvediloL 2021-11 Yes [id number] 25mg Take 1 [facility] 25 mg 0-05 02 tablet by [facility] of tablet 00:00: mouth in [place] 00 the Medical morning Branch and 1 tablet in the evening. pioglitazon 2021-11 Yes [id number] 15mg Take 1 [facility] e 15 mg 0-05 tablet by it[facility] of tablet 00:00: mouth in [place] 00 the morning. Branch gabapentin 2021-11 Yes [id number] 600mg Take 1 [facility] 600 mg 0-05 tablet by [facility] of tablet 00:00: mouth in [place] the morning Branch and 1 tablet at noon and 1 tablet in the evening. DULoxetine 2021-11 Yes [id number] 60mg Take 1 [facility] 60 mg 0-05 capsule by [facility] of capsule 00:00: mouth in [place] the Medical morning Branch and 1 capsule in the evening. hydrALAZINE 2021-11 Yes [id number] 50mg Take 1 [facility] 50 mg 0-05 tablet by [facility] of tablet 00:00: mouth in [place] the Medical morning Branch and 1 tablet in the evening. furosemide 2021-11 Yes [id number] Take lasix [facility] (LASIX) 40 0-05 02 40 mg BID it[facility] of mg tablet 00:00: [place] 00 Medical Branch omeprazole 2021-11 Yes [id number] 40mg Take 1 [facility] 40 mg 0-05 capsule by it[facility] of capsule 00:00: mouth in [place] the . Branch potassium 2021-11 Yes [id number] 10meq Take 1 [facility] chloride 10 0-05 02 tablet by ity of mEq CR 00:00: mouth [place] tablet 00 every Medical Saturday, Branch Saturday and Saturday. rosuvastati 2021-11 Yes [id number] 20mg Take 1 [facility] n 20 mg 0-05 tablet by ity of tablet 00:00: mouth in [place] 00 the morning. Branch carvediloL 2021-11 Yes [id number] 25mg Take 1 [facility] 25 mg 0-05 02 tablet by it[facility] of tablet 00:00: mouth in [place] 00 the Medical morning Branch and 1 tablet in the evening. pioglitazon 2021-11 Yes [id number] 15mg Take 1 [facility] e 15 mg 0-05 tablet by it[facility] of tablet 00:00: mouth in [place] 00 the morning. Branch gabapentin 2021-11 Yes [id number] 600mg Take 1 [facility] 600 mg 0-05 tablet by [facility] of tablet 00:00: mouth in [place] 00 the Medical morning Branch and 1 tablet at noon and 1 tablet in the evening. DULoxetine 2021-11 Yes [id number] 60mg Take 1 [facility] 60 mg 0-05 capsule by [facility] of capsule 00:00: mouth in [place] 00 the Medical morning Branch and 1 capsule in the evening. hydrALAZINE 2021-11 Yes [id number] 50mg Take 1 [facility] 50 mg 0-05 tablet by [facility] of tablet 00:00: mouth in [place] the morning Branch and 1 tablet in the evening. furosemide 2021-11 Yes [id number] Take lasix [facility] (LASIX) 40 0-05 02 40 mg BID ity of mg tablet 00:00: [place] 00 [facility] Branch omeprazole 2021-11 Yes [id number] 40mg Take 1 [facility] 40 mg 0-05 capsule by ity of capsule 00:00: mouth in [place] the morning. Branch potassium 2021-11 Yes [id number] 10meq Take 1 [facility] chloride 10 0-05 02 tablet by ity of mEq CR 00:00: mouth [place] tablet 00 every Medical Saturday, Branch Saturday and Saturday. rosuvastati 2021-11 Yes [id number] 20mg Take 1 [facility] n 20 mg 0-05 tablet by ity of tablet 00:00: mouth in [place] the morning. Branch carvediloL 2021-11 Yes [id number] 25mg Take 1 [facility] 25 mg 0-05 02 tablet by ity of tablet 00:00: mouth in [place] the Medical morning Branch and 1 tablet in the evening. pioglitazon 2021-11 Yes [id number] 15mg Take 1 [facility] e 15 mg 0-05 tablet by ity of tablet 00:00: mouth in [place] the morning. Branch gabapentin 2021-11 Yes [id number] 600mg Take 1 [facility] 600 mg 0-05 tablet by ity of tablet 00:00: mouth in [place] 00 the Medical morning Branch and 1 tablet at noon and 1 tablet in the evening. DULoxetine 2021-11 Yes [id number] 60mg Take 1 [facility] 60 mg 0-05 capsule by ity of capsule 00:00: mouth in [place] 00 the morning Branch and 1 capsule in the evening. hydrALAZINE 2021-11 Yes [id number] 50mg Take 1 [facility] 50 mg 0-05 tablet by ity of tablet 00:00: mouth in [place] 00 the Medical morning Branch and 1 tablet in the evening. furosemide 2021-11 Yes [id number] Take lasix [facility] (LASIX) 40 0-05 02 40 mg BID ity of mg tablet 00:00: [place] 00 [facility] omeprazole 2021-11 Yes [id number] 40mg Take 1 [facility] 40 mg 0-05 capsule by ity of capsule 00:00: mouth in [place] 00 the morning. Branch potassium 2021-11 Yes [id number] 10meq Take 1 [facility] chloride 10 0-05 02 tablet by ity of mEq CR 00:00: mouth [place] tablet 00 every Medical Saturday, Branch Saturday and Saturday. rosuvastati 2021-11 Yes [id number] 20mg Take 1 [facility] n 20 mg 0-05 tablet by ity of tablet 00:00: mouth in [place] the morning. Branch carvediloL 2021-11 Yes [id number] 25mg Take 1 [facility] 25 mg 0-05 02 tablet by ity of tablet 00:00: mouth in [place] the morning Branch and 1 tablet in the evening. pioglitazon 2021-11 Yes [id number] 15mg Take 1 [facility] e 15 mg 0-05 tablet by ity of tablet 00:00: mouth in [place] the morning. Branch gabapentin 2021-11 Yes [id number] 600mg Take 1 [facility] 600 mg 0-05 tablet by ity of tablet 00:00: mouth in [place] 00 the Medical morning Branch and 1 tablet at noon and 1 tablet in the evening. DULoxetine 2021-11 Yes [id number] 60mg Take 1 [facility] 60 mg 0-05 capsule by ity of capsule 00:00: mouth in [place] [address] the Medical morning Branch and 1 capsule in the evening. hydrALAZINE 2021-11 Yes [id number] 50mg Take 1 [facility] 50 mg 0-05 tablet by ity of tablet 00:00: mouth in [place] 00 the Medical morning Branch and 1 tablet in the evening. furosemide 2021-11 Yes [id number] Take lasix [facility] (LASIX) 40 0-05 02 40 mg BID ity of mg tablet 00:00: [place] 00 Medical Branch omeprazole 2021-11 Yes [id number] 40mg Take 1 [facility] 40 mg 0-05 capsule by ity of capsule 00:00: mouth in [place] the morning. Branch potassium 2021-11 Yes [id number] 10meq Take 1 [facility] chloride 10 0-05 02 tablet by ity of mEq CR 00:00: mouth [place] tablet 00 every Medical Saturday, Branch Saturday and Saturday. rosuvastati 2021-11 Yes [id number] 20mg Take 1 [facility] n 20 mg 0-05 tablet by ity of tablet 00:00: mouth in [place] the morning. Branch carvediloL 2021-11 Yes [id number] 25mg Take 1 [facility] 25 mg 0-05 02 tablet by ity of tablet 00:00: mouth in [place] the Medical morning Branch and 1 tablet in the evening. pioglitazon 2021-11 Yes [id number] 15mg Take 1 [facility] e 15 mg 0-05 tablet by ity of tablet 00:00: mouth in [place] the morning. Branch gabapentin 2021-11 Yes [id number] 600mg Take 1 [facility] 600 mg 0-05 tablet by ity of tablet 00:00: mouth in [place] the Medical morning Branch and 1 tablet at noon and 1 tablet in the evening. DULoxetine 2021-11 Yes [id number] 60mg Take 1 [facility] 60 mg 0-05 capsule by ity of capsule 00:00: mouth in [place] the Medical morning Branch and 1 capsule in the evening. hydrALAZINE 2021-11 Yes [id number] 50mg Take 1 [facility] 50 mg 0-05 tablet by ity of tablet 00:00: mouth in [place] the Medical morning Branch and 1 tablet in the evening. furosemide 2021-11 Yes [id number] Take lasix [facility] (LASIX) 40 0-05 02 40 mg BID ity of mg tablet 00:00: [place] 00 Medical Branch omeprazole 2021-11 Yes [id number] 40mg Take 1 [facility] 40 mg 0-05 capsule by ity of capsule 00:00: mouth in [place] 00 the Medical morning. Branch potassium 2021-11 Yes [id number] 10meq Take 1 [facility] chloride 10 0-05 02 tablet by ity of mEq CR 00:00: mouth [place] tablet 00 every Medical Saturday, Branch Saturday and Saturday. rosuvastati 2021-11 Yes [id number] 20mg Take 1 [facility] n 20 mg 0-05 tablet by ity of tablet 00:00: mouth in [place] the morning. Branch carvediloL 2021-11 Yes [id number] 25mg Take 1 [facility] 25 mg 0-05 02 tablet by ity of tablet 00:00: mouth in [place] the Medical morning Branch and 1 tablet in the evening. pioglitazon 2021-11 Yes [id number] 15mg Take 1 [facility] e 15 mg 0-05 tablet by ity of tablet 00:00: mouth in [place] the morning. Branch gabapentin 2021-11 Yes [id number] 600mg Take 1 [facility] 600 mg 0-05 tablet by ity of tablet 00:00: mouth in [place] the morning Branch and 1 tablet at noon and 1 tablet in the evening. DULoxetine 2021-11 Yes [id number] 60mg Take 1 [facility] 60 mg 0-05 capsule by ity of capsule 00:00: mouth in [place] the morning Branch and 1 capsule in the evening. hydrALAZINE 2021-11 Yes [id number] 50mg Take 1 [facility] 50 mg 0-05 tablet by ity of tablet 00:00: mouth in [place] the morning Branch and 1 tablet in the evening. furosemide 2021-11 Yes [id number] Take lasix [facility] (LASIX) 40 0-05 02 40 mg BID ity of mg tablet 00:00: [place] 00 Medical Branch metFORMIN 2021-11 Yes [id number] 500mg Take 1 [facility] 500 mg 0-05 tablet by ity of tablet 00:00: mouth in [place] the Medical morning Branch and 1 tablet in the evening. Take with meals. omeprazole 2021-11 Yes [id number] 40mg Take 1 [facility] 40 mg 0-05 capsule by ity of capsule 00:00: mouth in [place] 00 the morning. Branch potassium 2021-11 Yes [id number] 10meq Take 1 [facility] chloride 10 0-05 02 tablet by ity of mEq CR 00:00: mouth [place] tablet 00 every Medical Saturday, Branch Saturday and Saturday. rosuvastati 2021-11 Yes [id number] 20mg Take 1 [facility] n 20 mg 0-05 tablet by ity of tablet 00:00: mouth in [place] 00 the morning. Branch carvediloL 2021-11 Yes [id number] 25mg Take 1 [facility] 25 mg 0-05 02 tablet by ity of tablet 00:00: mouth in [place] 00 the morning Branch and 1 tablet in the evening. glimepiride 2021-11 Yes [id number] 2mg Take 1 [facility] 2 mg tablet 0-05 tablet by ity of 00:00: mouth in [place] 00 the morning Branch and 1 tablet in the evening. pioglitazon 2021-11 Yes [id number] 15mg Take 1 [facility] e 15 mg 0-05 tablet by ity of tablet 00:00: mouth in [place] 00 the morning. Branch gabapentin 2021-11 Yes [id number] 600mg Take 1 [facility] 600 mg 0-05 tablet by ity of tablet 00:00: mouth in [place] [address] the morning [facility] and 1 tablet at noon and 1 tablet in the evening. DULoxetine 2021-11 Yes [id number] 60mg Take 1 [facility] 60 mg 0-05 capsule by ity of capsule 00:00: mouth in [place] [address] the morning [facility] and 1 capsule in the evening. hydrALAZINE 2021-11 Yes [id number] 50mg Take 1 [facility] 50 mg 0-05 tablet by ity of tablet 00:00: mouth in [place] [address] the morning [facility] and 1 tablet in the evening. furosemide 2021-11 Yes [id number] Take lasix [facility] (LASIX) 40 0-05 02 40 mg BID ity of mg tablet 00:00: [address] metFORMIN 2021-11 Yes [id number] 500mg Take 1 [facility] 500 mg 0-05 tablet by ity of tablet 00:00: mouth in [place] [address] the morning [facility] and 1 tablet in the evening. Take with meals. omeprazole 2021-11 Yes [id number] 40mg Take 1 [facility] 40 mg 0-05 capsule by ity of capsule 00:00: mouth in [place] 00 the morning. Branch potassium 2021-11 Yes [id number] 10meq Take 1 [facility] chloride 10 0-05 02 tablet by ity of mEq CR 00:00: mouth [place] tablet 00 every Medical Saturday, Branch Saturday and Saturday. rosuvastati 2021-11 Yes [id number] 20mg Take 1 [facility] n 20 mg 0-05 tablet by ity of tablet 00:00: mouth in [place] 00 the morning. Branch carvediloL 2021-11 Yes [id number] 25mg Take 1 [facility] 25 mg 0-05 02 tablet by ity of tablet 00:00: mouth in [place] 00 the Medical morning Branch and 1 tablet in the evening. glimepiride 2021-11 Yes [id number] 2mg Take 1 [facility] 2 mg tablet 0-05 tablet by ity of 00:00: mouth in [place] [address] the Medical morning Branch and 1 tablet in the evening. pioglitazon 2021-11 Yes [id number] 15mg Take 1 [facility] e 15 mg 0-05 tablet by ity of tablet 00:00: mouth in [place] [address] the morning. Branch gabapentin 2021-11 Yes [id number] 600mg Take 1 [facility] 600 mg 0-05 tablet by ity of tablet 00:00: mouth in [place] [address] the [facility] morning Branch and 1 tablet at noon and 1 tablet in the evening. DULoxetine 2021-11 Yes [id number] 60mg Take 1 [facility] 60 mg 0-05 capsule by ity of capsule 00:00: mouth in [place] [address] the [facility] morning [place] and 1 capsule in the evening. hydrALAZINE 2021-11 Yes [id number] 50mg Take 1 [facility] 50 mg 0-05 tablet by ity of tablet 00:00: mouth in [place] [address] the [facility] morning [facility] and 1 tablet in the evening. furosemide 2021-11 Yes [id number] Take lasix [facility] (LASIX) 40 0-05 02 40 mg BID ity of mg tablet 00:00: [place] [address] Medical [place] metFORMIN 2021-11 Yes [id number] 500mg Take 1 [facility] 500 mg 0-05 tablet by ity of tablet 00:00: mouth in [place] [address] the [facility] morning Sur[facility] and 1 tablet in the evening. Take with meals. omeprazole 2021-11 Yes [id number] 40mg Take 1 [facility] 40 mg 0-05 capsule by ity of capsule 00:00: mouth in [place] [address] the morning. Branch potassium 2021-11 Yes [id number] 10meq Take 1 [facility] chloride 10 0-05 02 tablet by ity of mEq CR 00:00: mouth [place] tablet 00 every Medical Saturday, Branch Saturday and Saturday. rosuvastati 2021-11 Yes [id number] 20mg Take 1 [facility] n 20 mg 0-05 tablet by ity of tablet 00:00: mouth in [place] 00 the Medical morning. Branch carvediloL 2021-11 Yes [id number] 25mg Take 1 [facility] 25 mg 0-05 02 tablet by ity of tablet 00:00: mouth in [place] 00 the Medical morning Branch and 1 tablet in the evening. glimepiride 2021-11 Yes [id number] 2mg Take 1 [facility] 2 mg tablet 0-05 tablet by ity of 00:00: mouth in [place] [address] the Medical morning Branch and 1 tablet in the evening. pioglitazon 2021-11 Yes [id number] 15mg Take 1 [facility] e 15 mg 0-05 tablet by ity of tablet 00:00: mouth in [place] [address] the morning. Branch gabapentin 2021-11 Yes [id number] 600mg Take 1 [facility] 600 mg 0-05 tablet by ity of tablet 00:00: mouth in [place] [address] the [facility] morning Branch and 1 tablet at noon and 1 tablet in the evening. DULoxetine 2021-11 Yes [id number] 60mg Take 1 [facility] 60 mg 0-05 capsule by ity of capsule 00:00: mouth in [place] [address] the [facility] morning Branch and 1 capsule in the evening. hydrALAZINE 2021-11 Yes [id number] 50mg Take 1 [facility] 50 mg 0-05 tablet by ity of tablet 00:00: mouth in [place] [address] the [facility] morning [place] and 1 tablet in the evening. furosemide 2021-11 Yes [id number] Take lasix [facility] (LASIX) 40 0-05 02 40 mg BID ity of mg tablet 00:00: [place] [address] Medical Branch metFORMIN 2021-11 Yes [id number] 500mg Take 1 [facility] 500 mg 0-05 tablet by ity of tablet 00:00: mouth in [place] [address] the [facility] morning Branch and 1 tablet in the evening. Take with meals. omeprazole 2021-11 Yes [id number] 40mg Take 1 [facility] 40 mg 0-05 capsule by ity of capsule 00:00: mouth in [place] [address] the morning. Branch potassium 2021-11 Yes [id number] 10meq Take 1 [facility] chloride 10 0-05 02 tablet by ity of mEq CR 00:00: mouth [place] tablet 00 every Medical Saturday, Branch Saturday and Saturday. rosuvastati 2021-11 Yes [id number] 20mg Take 1 [facility] n 20 mg 0-05 tablet by ity of tablet 00:00: mouth in [place] 00 the morning. Branch carvediloL 2021-11 Yes [id number] 25mg Take 1 [facility] 25 mg 0-05 02 tablet by ity of tablet 00:00: mouth in [place] 00 the Medical morning Branch and 1 tablet in the evening. glimepiride 2021-11 Yes [id number] 2mg Take 1 [facility] 2 mg tablet 0-05 tablet by ity of 00:00: mouth in [place] [address] the Medical morning Branch and 1 tablet in the evening. pioglitazon 2021-11 Yes [id number] 15mg Take 1 [facility] e 15 mg 0-05 tablet by ity of tablet 00:00: mouth in [place] 00 the morning. Branch gabapentin 2021-11 Yes [id number] 600mg Take 1 [facility] 600 mg 0-05 tablet by ity of tablet 00:00: mouth in [place] [address] the Medical morning Branch and 1 tablet at noon and 1 tablet in the evening. DULoxetine 2021-11 Yes [id number] 60mg Take 1 [facility] 60 mg 0-05 capsule by ity of capsule 00:00: mouth in [place] [address] the morning Branch and 1 capsule in the evening. hydrALAZINE 2021-11 Yes [id number] 50mg Take 1 [facility] 50 mg 0-05 tablet by ity of tablet 00:00: mouth in [place] 00 the Medical morning Branch and 1 tablet in the evening. furosemide 2021-11 Yes [id number] Take lasix [facility] (LASIX) 40 0-05 02 40 mg BID ity of mg tablet 00:00: [place] [address] Medical Branch metFORMIN 2021-11 Yes [id number] 500mg Take 1 [facility] 500 mg 0-05 tablet by ity of tablet 00:00: mouth in [place] [address] the Medical morning Branch and 1 tablet in the evening. Take with meals. omeprazole 2021-11 Yes [id number] 40mg Take 1 [facility] 40 mg 0-05 capsule by ity of capsule 00:00: mouth in [place] 00 the morning. Branch potassium 2021-11 Yes [id number] 10meq Take 1 [facility] chloride 10 0-05 02 tablet by ity of mEq CR 00:00: mouth [place] tablet 00 every Medical Saturday, Branch Saturday and Saturday. rosuvastati 2021-11 Yes [id number] 20mg Take 1 [facility] n 20 mg 0-05 tablet by ity of tablet 00:00: mouth in [place] 00 the morning. Branch carvediloL 2021-11 Yes [id number] 25mg Take 1 [facility] 25 mg 0-05 02 tablet by ity of tablet 00:00: mouth in [place] 00 the Medical morning Branch and 1 tablet in the evening. glimepiride 2021-11 Yes [id number] 2mg Take 1 [facility] 2 mg tablet 0-05 tablet by ity of 00:00: mouth in [place] [address] the Medical morning Branch and 1 tablet in the evening. pioglitazon 2021-11 Yes [id number] 15mg Take 1 [facility] e 15 mg 0-05 tablet by ity of tablet 00:00: mouth in [place] [address] the morning. Branch gabapentin 2021-11 Yes [id number] 600mg Take 1 [facility] 600 mg 0-05 tablet by ity of tablet 00:00: mouth in [place] [address] the Medical morning Branch and 1 tablet at noon and 1 tablet in the evening. DULoxetine 2021-11 Yes [id number] 60mg Take 1 [facility] 60 mg 0-05 capsule by ity of capsule 00:00: mouth in [place] [address] the [facility] morning Surrency and 1 capsule in the evening. hydrALAZINE 2021-11 Yes [id number] 50mg Take 1 [facility] 50 mg 0-05 tablet by ity of tablet 00:00: mouth in [place] [address] the [facility] morning Branch and 1 tablet in the evening. furosemide 2021-11 Yes [id number] Take lasix [facility] (LASIX) 40 0-05 02 40 mg BID ity of mg tablet 00:00: [address] metFORMIN 2021-11 Yes [id number] 500mg Take 1 [facility] 500 mg 0-05 tablet by ity of tablet 00:00: mouth in [place] [address] the [facility] morning [place] and 1 tablet in the evening. Take with meals. omeprazole 2021-11 Yes [id number] 40mg Take 1 [facility] 40 mg 0-05 capsule by ity of capsule 00:00: mouth in [place] the morning. Branch potassium 2021-11 Yes [id number] 10meq Take 1 [facility] chloride 10 0-05 02 tablet by ity of mEq CR 00:00: mouth [place] tablet 00 every Medical Saturday, Branch Saturday and Saturday. rosuvastati 2021-11 Yes [id number] 20mg Take 1 [facility] n 20 mg 0-05 tablet by ity of tablet 00:00: mouth in [place] the morning. Branch carvediloL 2021-11 Yes [id number] 25mg Take 1 [facility] 25 mg 0-05 02 tablet by ity of tablet 00:00: mouth in [place] 00 the Medical morning Branch and 1 tablet in the evening. glimepiride 2021-11 Yes [id number] 2mg Take 1 [facility] 2 mg tablet 0-05 tablet by ity of 00:00: mouth in [place] [address] the Medical morning Branch and 1 tablet in the evening. pioglitazon 2021-11 Yes [id number] 15mg Take 1 [facility] e 15 mg 0-05 tablet by ity of tablet 00:00: mouth in [place] 00 the morning. Branch gabapentin 2021-11 Yes [id number] 600mg Take 1 [facility] 600 mg 0-05 tablet by ity of tablet 00:00: mouth in [place] [address] the morning Branch and 1 tablet at noon and 1 tablet in the evening. DULoxetine 2021-11 Yes [id number] 60mg Take 1 [facility] 60 mg 0-05 capsule by ity of capsule 00:00: mouth in [place] [address] the morning [place] and 1 capsule in the evening. hydrALAZINE 2021-11 Yes [id number] 50mg Take 1 [facility] 50 mg 0-05 tablet by ity of tablet 00:00: mouth in [place] [address] the morning Sur[place] and 1 tablet in the evening. furosemide 2021-11 Yes [id number] Take lasix [facility] (LASIX) 40 0-05 02 40 mg BID ity of mg tablet 00:00: [address] metFORMIN 2021-11 Yes [id number] 500mg Take 1 [facility] 500 mg 0-05 tablet by ity of tablet 00:00: mouth in [place] [address] the Medical morning Sur[place] and 1 tablet in the evening. Take with meals. omeprazole 2021-11 Yes [id number] 40mg Take 1 [facility] 40 mg 0-05 capsule by ity of capsule 00:00: mouth in [place] 00 the morning. Branch potassium 2021-11 Yes [id number] 10meq Take 1 [facility] chloride 10 0-05 02 tablet by ity of mEq CR 00:00: mouth [place] tablet 00 every Medical Saturday, Branch Saturday and Saturday. rosuvastati 2021-11 Yes [id number] 20mg Take 1 [facility] n 20 mg 0-05 tablet by ity of tablet 00:00: mouth in [place] 00 the morning. Branch carvediloL 2021-11 Yes [id number] 25mg Take 1 [facility] 25 mg 0-05 02 tablet by ity of tablet 00:00: mouth in [place] 00 the Medical morning Branch and 1 tablet in the evening. glimepiride 2021-11 Yes [id number] 2mg Take 1 [facility] 2 mg tablet 0-05 tablet by ity of 00:00: mouth in [place] the morning Branch and 1 tablet in the evening. pioglitazon 2021-11 Yes [id number] 15mg Take 1 [facility] e 15 mg 0-05 tablet by ity of tablet 00:00: mouth in [place] 00 the morning. Branch gabapentin 2021-11 Yes [id number] 600mg Take 1 [facility] 600 mg 0-05 tablet by ity of tablet 00:00: mouth in [place] the morning Branch and 1 tablet at noon and 1 tablet in the evening. DULoxetine 2021-11 Yes [id number] 60mg Take 1 [facility] 60 mg 0-05 capsule by ity of capsule 00:00: mouth in [place] the [facility] morning Branch and 1 capsule in the evening. hydrALAZINE 2021-11 Yes [id number] 50mg Take 1 [facility] 50 mg 0-05 tablet by ity of tablet 00:00: mouth in [place] 00 the [facility] morning Branch and 1 tablet in the evening. furosemide 2021-11 Yes [id number] Take lasix [facility] (LASIX) 40 0-05 02 40 mg BID ity of mg tablet 00:00: [address] metFORMIN 2021-11 Yes [id number] 500mg Take 1 [facility] 500 mg 0-05 tablet by ity of tablet 00:00: mouth in [place] [address] the Medical morning Branch and 1 tablet in the evening. Take with meals. omeprazole 2021-11 Yes [id number] 40mg Take 1 [facility] 40 mg 0-05 capsule by ity of capsule 00:00: mouth in [place] the morning. Branch potassium 2021-11 Yes [id number] 10meq Take 1 [facility] chloride 10 0-05 02 tablet by ity of mEq CR 00:00: mouth [place] tablet 00 every Medical Saturday, Branch Saturday and Saturday. rosuvastati 2021-11 Yes [id number] 20mg Take 1 [facility] n 20 mg 0-05 tablet by ity of tablet 00:00: mouth in [place] 00 the morning. Branch carvediloL 2021-11 Yes [id number] 25mg Take 1 [facility] 25 mg 0-05 02 tablet by ity of tablet 00:00: mouth in [place] the morning Branch and 1 tablet in the evening. glimepiride 2021-11 Yes [id number] 2mg Take 1 [facility] 2 mg tablet 0-05 tablet by ity of 00:00: mouth in [place] [address] the [facility] morning Sur[place] and 1 tablet in the evening. pioglitazon 2021-11 Yes [id number] 15mg Take 1 [facility] e 15 mg 0-05 tablet by ity of tablet 00:00: mouth in [place] the morning. Branch gabapentin 2021-11 Yes [id number] 600mg Take 1 [facility] 600 mg 0-05 tablet by ity of tablet 00:00: mouth in [place] the morning Branch and 1 tablet at noon and 1 tablet in the evening. DULoxetine 2021-11 Yes [id number] 60mg Take 1 [facility] 60 mg 0-05 capsule by ity of capsule 00:00: mouth in [place] [address] the [facility] morning Surrency and 1 capsule in the evening. hydrALAZINE 2021-11 Yes [id number] 50mg Take 1 [facility] 50 mg 0-05 tablet by ity of tablet 00:00: mouth in [place] [address] the [facility] morning Sur[place] and 1 tablet in the evening. furosemide 2021-11 Yes [id number] Take lasix [facility] (LASIX) 40 0-05 02 40 mg BID ity of mg tablet 00:00: [place] [address] Medical [place] metFORMIN 2021-11 Yes [id number] 500mg Take 1 [facility] 500 mg 0-05 tablet by ity of tablet 00:00: mouth in [place] [address] the [facility] morning Sur[place] and 1 tablet in the evening. Take with meals. omeprazole 2021-11 Yes [id number] 40mg Take 1 [facility] 40 mg 0-05 capsule by ity of capsule 00:00: mouth in [place] 00 the Medical morning. Branch potassium 2021-11 Yes [id number] 10meq Take 1 [facility] chloride 10 0-05 02 tablet by ity of mEq CR 00:00: mouth [place] tablet 00 every Medical Saturday, Branch Saturday and Saturday. rosuvastati 2021-11 Yes [id number] 20mg Take 1 [facility] n 20 mg 0-05 tablet by ity of tablet 00:00: mouth in [place] 00 the Medical morning. Branch carvediloL 2021-11 Yes [id number] 25mg Take 1 [facility] 25 mg 0-05 02 tablet by ity of tablet 00:00: mouth in [place] 00 the Medical morning Branch and 1 tablet in the evening. metFORMIN 2021-11- No [id number] 500mg Take 1 [facility] 500 mg 0-05 01-24 tablet by ity of tablet 00:00: 00:00 mouth in [place] 00 :00 the Medical morning Branch and 1 tablet in the evening. Take with meals. glimepiride 2021-11- No [id number] 2mg Take 1 [facility] 2 mg tablet 0-05 01-24 tablet by it y of 00:00: 00:00 mouth in [place] 00 :00 the Medical morning Branch and 1 tablet in the evening. GABAPENTIN Yes [id number] TAKE 1 [facility] 600 mg 9-05 TABLET BY ity of tablet 00:00: MOUTH [place] THREE Medical TIMES Branch DAILY ALLOPURINOL 2021- Yes [id number] 100mg TAKE 1 [facility] 100 mg 9-05 TABLET BY ity of tablet 00:00: MOUTH [place] 00 DAILY Medical Branch GABAPENTIN 2021-0 Yes [id number] TAKE 1 [facility] 600 mg 9-05 TABLET BY ity of tablet 00:00: MOUTH [place] [facility] Medical TIMES [place] DAILY ALLOPURINOL 2021- Yes [id number] 100mg TAKE 1 [facility] 100 mg 9-05 TABLET BY ity of tablet 00:00: MOUTH [place] 00 DAILY Medical Branch ALLOPURINOL 2021-0 Yes [id number] 100mg TAKE 1 [facility] 100 mg 9-05 TABLET BY ity of tablet 00:00: MOUTH [place] 00 DAILY Medical Branch ALLOPURINOL 2022-0 Yes [id number] 100mg TAKE 1 [facility] 100 mg 9-05 TABLET BY ity of tablet 00:00: [facility] DAILY Medical Branch ALLOPURINOL 2021-0 Yes [id number] 100mg TAKE 1 [facility] 100 mg 9-05 TABLET BY ity of tablet 00:00: DAILY Medical Branch ALLOPURINOL 2-0 Yes [id number] 100mg TAKE 1 [facility] 100 mg 9-05 TABLET BY ity of tablet 00:00: DAILY Medical Branch ALLOPURINOL 2021-0 Yes [id number] 100mg TAKE 1 [facility] 100 mg 9-05 TABLET BY ity of tablet 00:00: DAILY Medical Branch ALLOPURINOL 2021-0 Yes [id number] 100mg TAKE 1 [facility] 100 mg 9-05 TABLET BY ity of tablet 00:00: [facility] DAILY Medical Branch ALLOPURINOL 2021-0 Yes [id number] 100mg TAKE 1 [facility] 100 mg 9-05 TABLET BY ity of tablet 00:00: [facility] DAILY Medical Branch ALLOPURINOL 2021-0 Yes [id number] 100mg TAKE 1 [facility] 100 mg 9-05 TABLET BY ity of tablet 00:00: [facility] DAILY Medical Branch ALLOPURINOL 2021-0 Yes [id number] 100mg TAKE 1 [facility] 100 mg 9-05 TABLET BY ity of tablet 00:00: [facility] DAILY Medical Branch ALLOPURINOL 2021-0 Yes [id number] 100mg TAKE 1 [facility] 100 mg 9-05 TABLET BY ity of tablet 00:00: [facility] DAILY Medical Branch ALLOPURINOL 2-0 Yes [id number] 100mg TAKE 1 [facility] 100 mg 9-05 TABLET BY ity of tablet 00:00: [facility] DAILY Medical Branch ALLOPURINOL 2-0 Yes [id number] 100mg TAKE 1 [facility] 100 mg 9-05 TABLET BY ity of tablet 00:00: [facility] DAILY Medical Branch ALLOPURINOL 2-0 Yes [id number] 100mg TAKE 1 [facility] 100 mg 9-05 TABLET BY ity of tablet 00:00: [facility] DAILY Medical Branch ALLOPURINOL 2-0 Yes [id number] 100mg TAKE 1 [facility] 100 mg 9-05 TABLET BY ity of tablet 00:00: [facility] DAILY Medical Branch ALLOPURINOL 2-0 Yes [id number] 100mg TAKE 1 [facility] 100 mg 9-05 TABLET BY ity of tablet 00:00: [facility] DAILY Medical Branch ALLOPURINOL 2-0 Yes [id number] 100mg TAKE 1 [facility] 100 mg 9-05 TABLET BY ity of tablet 00:00: [facility] DAILY Medical Branch ALLOPURINOL 2-0 Yes [id number] 100mg TAKE 1 [facility] 100 mg 9-05 TABLET BY ity of tablet 00:00: DAILY Medical Branch ALLOPURINOL 2-0 Yes [id number] 100mg TAKE 1 [facility] 100 mg 9-05 TABLET BY ity of tablet 00:00: DAILY Medical Branch ALLOPURINOL 2021-0 Yes [id number] 100mg TAKE 1 [facility] 100 mg 9-05 TABLET BY ity of tablet 00:00: [facility] DAILY Medical Branch ALLOPURINOL 2021-0 Yes [id number] 100mg TAKE 1 [facility] 100 mg 9-05 TABLET BY ity of tablet 00:00: [facility] DAILY Medical Branch ALLOPURINOL 2021-0 Yes [id number] 100mg TAKE 1 [facility] 100 mg 9-05 TABLET BY ity of tablet 00:00: [facility] DAILY Medical Branch ALLOPURINOL 2-0 Yes [id number] 100mg TAKE 1 [facility] 100 mg 9-05 TABLET BY ity of tablet 00:00: [facility] DAILY Medical Branch ALLOPURINOL 2-0 Yes [id number] 100mg TAKE 1 [facility] 100 mg 9-05 TABLET BY ity of tablet 00:00: [facility] DAILY Medical Branch ALLOPURINOL 2-0 Yes [id number] 100mg TAKE 1 [facility] 100 mg 9-05 TABLET BY ity of tablet 00:00: [facility] DAILY Medical Branch ALLOPURINOL 2-0 Yes [id number] 100mg TAKE 1 [facility] 100 mg 9-05 TABLET BY ity of tablet 00:00: [facility] DAILY Medical Branch ALLOPURINOL 2-0 Yes [id number] 100mg TAKE 1 [facility] 100 mg 9-05 TABLET BY ity of tablet 00:00: [facility] DAILY Medical Branch ALLOPURINOL 2-0 Yes [id number] 100mg TAKE 1 [facility] 100 mg 9-05 TABLET BY ity of tablet 00:00: [facility] DAILY Medical Branch ALLOPURINOL 2-0 Yes [id number] 100mg TAKE 1 [facility] 100 mg 9-05 TABLET BY ity of tablet 00:00: [facility] DAILY Medical Branch ALLOPURINOL 2021-0 Yes [id number] 100mg TAKE 1 [facility] 100 mg 9-05 TABLET BY ity of tablet 00:00: [facility] DAILY Medical Branch ALLOPURINOL 2021-0 Yes [id number] 100mg TAKE 1 [facility] 100 mg 9-05 TABLET BY ity of tablet 00:00: [facility] DAILY Medical Branch ALLOPURINOL 2021-0 Yes [id number] 100mg TAKE 1 [facility] 100 mg 9-05 TABLET BY ity of tablet 00:00: [facility] DAILY Medical Branch ALLOPURINOL 2021-0 Yes [id number] 100mg TAKE 1 [facility] 100 mg 9-05 TABLET BY ity of tablet 00:00: [facility] DAILY Medical Branch ALLOPURINOL 2021-0 Yes [id number] 100mg TAKE 1 [facility] 100 mg 9-05 TABLET BY ity of tablet 00:00: [facility] DAILY Medical Branch ALLOPURINOL 2021-0 Yes [id number] 100mg TAKE 1 [facility] 100 mg 9-05 TABLET BY ity of tablet 00:00: [facility] DAILY Medical Branch ALLOPURINOL 2021-0 Yes [id number] 100mg TAKE 1 [facility] 100 mg 9-05 TABLET BY ity of tablet 00:00: [facility] DAILY Medical Branch ALLOPURINOL 2021-0 Yes [id number] 100mg TAKE 1 [facility] 100 mg 9-05 TABLET BY ity of tablet 00:00: [facility] DAILY Medical Branch GABAPENTIN 2-0 2022- No [id number] TAKE 1 [facility] 600 mg 9-05 10-05 TABLET BY ity of tablet 00:00: 00:00 [facility] 00 :00 THREE Medical TIMES Branch DAILY GABAPENTIN 2-0 2- No [id number] TAKE 1 [facility] 600 mg 9-05 10-05 TABLET BY ity of tablet 00:00: 00:00 [facility] 00 :00 THREE Medical TIMES Branch DAILY OMEPRAZOLE 2021-0 Yes [id number] 40mg TAKE 1 [facility] 40 mg 7-11 CAPSULE BY ity of capsule 00:00: [facility] DAILY Medical Branch IPRATROPIUM 2021-0 Yes [id number] USE 2 U nivers 21 mcg 7-11 SPRAYS IN ity of (0.03 %) 00:00: [facility] nasal spray 00 NOSTRIL Medic al EVERY 12 Branch HOURS OMEPRAZOLE 2022-0 Yes [id number] 40mg TAKE 1 [facility] 40 mg 7-11 CAPSULE BY ity of capsule 00:00: MOUTH [place] DAILY Medical Branch IPRATROPIUM 2022-0 Yes [id number] USE 2 U nivers 21 mcg 7-11 SPRAYS IN ity of (0.03 %) 00:00: EACH [place] nasal spray 00 NOSTRIL Medic al EVERY 12 Branch HOURS OMEPRAZOLE 2022-0 Yes [id number] 40mg TAKE 1 [facility] 40 mg 7-11 CAPSULE BY ity of capsule 00:00: MOUTH [place] DAILY Medical Branch IPRATROPIUM 2-0 Yes [id number] USE 2 U nivers 21 mcg 7-11 SPRAYS IN ity of (0.03 %) 00:00: EACH [place] nasal spray 00 NOSTRIL Medic al EVERY 12 Branch HOURS OMEPRAZOLE 2-0 Yes [id number] 40mg TAKE 1 [facility] 40 mg 7-11 CAPSULE BY ity of capsule 00:00: MOUTH [place] DAILY Medical Branch IPRATROPIUM 2-0 Yes [id number] USE 2 U nivers 21 mcg 7-11 SPRAYS IN ity of (0.03 %) 00:00: EACH [place] nasal spray 00 NOSTRIL Medic al EVERY 12 Branch HOURS OMEPRAZOLE 2022-0 Yes [id number] 40mg TAKE 1 [facility] 40 mg 7-11 CAPSULE BY ity of capsule 00:00: MOUTH [place] DAILY Medical Branch IPRATROPIUM 2022-0 Yes [id number] USE 2 U nivers 21 mcg 7-11 SPRAYS IN ity of (0.03 %) 00:00: EACH [place] nasal spray 00 NOSTRIL Medic al EVERY 12 Branch HOURS IPRATROPIUM 2022-0 Yes [id number] USE 2 U nivers 21 mcg 7-11 SPRAYS IN ity of (0.03 %) 00:00: EACH [place] nasal spray 00 NOSTRIL Medic al EVERY 12 Branch HOURS IPRATROPIUM 2022-0 Yes [id number] USE 2 U nivers 21 mcg 7-11 SPRAYS IN ity of (0.03 %) 00:00: EACH [place] nasal spray 00 NOSTRIL Medic al EVERY 12 Branch HOURS IPRATROPIUM 2022-0 Yes [id number] USE 2 U nivers 21 mcg 7-11 SPRAYS IN ity of (0.03 %) 00:00: EACH [place] nasal spray 00 NOSTRIL Medic al EVERY 12 Branch HOURS IPRATROPIUM 2022-0 Yes [id number] USE 2 U nivers 21 mcg 7-11 SPRAYS IN ity of (0.03 %) 00:00: EACH [place] nasal spray 00 NOSTRIL Medic al EVERY 12 Branch HOURS IPRATROPIUM 2022-0 Yes [id number] USE 2 U nivers 21 mcg 7-11 SPRAYS IN ity of (0.03 %) 00:00: EACH [place] nasal spray 00 NOSTRIL Medic al EVERY 12 Branch HOURS IPRATROPIUM 2022-0 Yes [id number] USE 2 U nivers 21 mcg 7-11 SPRAYS IN ity of (0.03 %) 00:00: EACH [place] nasal spray 00 NOSTRIL Medic al EVERY 12 Branch HOURS IPRATROPIUM 2022-0 Yes [id number] USE 2 U nivers 21 mcg 7-11 SPRAYS IN ity of (0.03 %) 00:00: EACH [place] nasal spray 00 NOSTRIL Medic al EVERY 12 Branch HOURS IPRATROPIUM 2022-0 Yes [id number] USE 2 U nivers 21 mcg 7-11 SPRAYS IN ity of (0.03 %) 00:00: EACH [place] nasal spray 00 NOSTRIL Medic al EVERY 12 Branch HOURS IPRATROPIUM 2022-0 Yes [id number] USE 2 U nivers 21 mcg 7-11 SPRAYS IN ity of (0.03 %) 00:00: EACH [place] nasal spray 00 NOSTRIL Medic al EVERY 12 Branch HOURS IPRATROPIUM 2022-0 Yes [id number] USE 2 U nivers 21 mcg 7-11 SPRAYS IN ity of (0.03 %) 00:00: EACH [place] nasal spray 00 NOSTRIL Medic al EVERY 12 Branch HOURS IPRATROPIUM 2022-0 Yes [id number] USE 2 U nivers 21 mcg 7-11 SPRAYS IN ity of (0.03 %) 00:00: EACH [place] nasal spray 00 NOSTRIL Medic al EVERY 12 Branch HOURS IPRATROPIUM 2022-0 Yes [id number] USE 2 U nivers 21 mcg 7-11 SPRAYS IN ity of (0.03 %) 00:00: EACH [place] nasal spray 00 NOSTRIL Medic al EVERY 12 Branch HOURS IPRATROPIUM 2022-0 Yes [id number] USE 2 U nivers 21 mcg 7-11 SPRAYS IN ity of (0.03 %) 00:00: EACH [place] nasal spray 00 NOSTRIL Medic al EVERY 12 Branch HOURS IPRATROPIUM 2022-0 Yes [id number] USE 2 U nivers 21 mcg 7-11 SPRAYS IN ity of (0.03 %) 00:00: EACH [place] nasal spray 00 NOSTRIL Medic al EVERY 12 Branch HOURS IPRATROPIUM 2022-0 Yes [id number] USE 2 U nivers 21 mcg 7-11 SPRAYS IN ity of (0.03 %) 00:00: EACH [place] nasal spray 00 NOSTRIL Medic al EVERY 12 Branch HOURS IPRATROPIUM 2022-0 Yes [id number] USE 2 U nivers 21 mcg 7-11 SPRAYS IN ity of (0.03 %) 00:00: EACH [place] nasal spray 00 NOSTRIL Medic al EVERY 12 Branch HOURS IPRATROPIUM 2022-0 Yes [id number] USE 2 U nivers 21 mcg 7-11 SPRAYS IN ity of (0.03 %) 00:00: EACH [place] nasal spray 00 NOSTRIL Medic al EVERY 12 Branch HOURS IPRATROPIUM 2022-0 Yes [id number] USE 2 U nivers 21 mcg 7-11 SPRAYS IN ity of (0.03 %) 00:00: EACH [place] nasal spray 00 NOSTRIL Medic al EVERY 12 Branch HOURS IPRATROPIUM 2022-0 Yes [id number] USE 2 U nivers 21 mcg 7-11 SPRAYS IN ity of (0.03 %) 00:00: EACH [place] nasal spray 00 NOSTRIL Medic al EVERY 12 Branch HOURS IPRATROPIUM 2022-0 Yes [id number] USE 2 U nivers 21 mcg 7-11 SPRAYS IN ity of (0.03 %) 00:00: EACH [place] nasal spray 00 NOSTRIL Medic al EVERY 12 Branch HOURS IPRATROPIUM 2022-0 Yes [id number] USE 2 U nivers 21 mcg 7-11 SPRAYS IN ity of (0.03 %) 00:00: EACH [place] nasal spray 00 NOSTRIL Medic al EVERY 12 Branch HOURS IPRATROPIUM 2022-0 Yes [id number] USE 2 U nivers 21 mcg 7-11 SPRAYS IN ity of (0.03 %) 00:00: EACH [place] nasal spray 00 NOSTRIL Medic al EVERY 12 Branch HOURS IPRATROPIUM 2022-0 Yes [id number] USE 2 U nivers 21 mcg 7-11 SPRAYS IN ity of (0.03 %) 00:00: EACH [place] nasal spray 00 NOSTRIL Medic al EVERY 12 Branch HOURS IPRATROPIUM 2022-0 Yes [id number] USE 2 U nivers 21 mcg 7-11 SPRAYS IN ity of (0.03 %) 00:00: EACH [place] nasal spray 00 NOSTRIL Medic al EVERY 12 Branch HOURS IPRATROPIUM 2022-0 Yes [id number] USE 2 U nivers 21 mcg 7-11 SPRAYS IN ity of (0.03 %) 00:00: EACH [place] nasal spray 00 NOSTRIL Medic al EVERY 12 Branch HOURS IPRATROPIUM 2022-0 Yes [id number] USE 2 U nivers 21 mcg 7-11 SPRAYS IN ity of (0.03 %) 00:00: EACH [place] nasal spray 00 NOSTRIL Medic al EVERY 12 Branch HOURS IPRATROPIUM 2022-0 Yes [id number] USE 2 U nivers 21 mcg 7-11 SPRAYS IN ity of (0.03 %) 00:00: EACH [place] nasal spray 00 NOSTRIL Medic al EVERY 12 Branch HOURS IPRATROPIUM 2022-0 Yes [id number] USE 2 U nivers 21 mcg 7-11 SPRAYS IN ity of (0.03 %) 00:00: EACH [place] nasal spray 00 NOSTRIL Medic al EVERY 12 Branch HOURS IPRATROPIUM 2022-0 Yes [id number] USE 2 U nivers 21 mcg 7-11 SPRAYS IN ity of (0.03 %) 00:00: EACH [place] nasal spray 00 NOSTRIL Medic al EVERY 12 Branch HOURS IPRATROPIUM 2022-0 Yes [id number] USE 2 U nivers 21 mcg 7-11 SPRAYS IN ity of (0.03 %) 00:00: EACH [place] nasal spray 00 NOSTRIL Medic al EVERY 12 Branch HOURS IPRATROPIUM 2022-0 Yes [id number] USE 2 U nivers 21 mcg 7-11 SPRAYS IN ity of (0.03 %) 00:00: EACH [place] nasal spray 00 NOSTRIL Medic al EVERY 12 Branch HOURS IPRATROPIUM 2022-0 Yes [id number] USE 2 U nivers 21 mcg 7-11 SPRAYS IN ity of (0.03 %) 00:00: EACH [place] nasal spray 00 NOSTRIL Medic al EVERY 12 Branch HOURS IPRATROPIUM 2021-0 Yes [id number] USE 2 U nivers 21 mcg 7-11 SPRAYS IN ity of (0.03 %) 00:00: EACH [place] nasal spray 00 NOSTRIL Medic al EVERY 12 Branch HOURS IPRATROPIUM 2021-0 Yes [id number] USE 2 U nivers 21 mcg 7-11 SPRAYS IN ity of (0.03 %) 00:00: EACH [place] nasal spray 00 NOSTRIL Medic al EVERY 12 Branch HOURS IPRATROPIUM 2021-0 Yes [id number] USE 2 U nivers 21 mcg 7-11 SPRAYS IN ity of (0.03 %) 00:00: EACH [place] nasal spray 00 NOSTRIL Medic al EVERY 12 Branch HOURS IPRATROPIUM 2021-0 Yes [id number] USE 2 U nivers 21 mcg 7-11 SPRAYS IN ity of (0.03 %) 00:00: EACH [place] nasal spray 00 NOSTRIL Medic al EVERY 12 Branch HOURS OMEPRAZOLE 2021-0 2021- No [id number] 40mg TAKE 1 [facility] 40 mg 7-11 10-05 CAPSULE BY ity of capsule 00:00: 00:00 MOUTH [place] 00 :00 DAILY Medical Branch OMEPRAZOLE 2021-0 2021- No [id number] 40mg TAKE 1 [facility] 40 mg 7-11 10-05 CAPSULE BY ity of capsule 00:00: 00:00 MOUTH [place] 00 :00 DAILY Medical Branch PIOGLITAZON 2021-0 Yes [id number] TAKE 1 [facility] E 15 mg 7-05 TABLET BY ity of tablet 00:00: MOUTH [place] 00 EVERY DAY Medical Branch Diclofenac 2021-0 Yes [id number] Apply to [facility] Sodium 7-05 area(s) 4 ity of (VOLTAREN) 00:00: (four) [place] 1 % gel 00 times Medical daily. Branch lidocaine 5 2021-0 Yes [id number] Apply to [facility] % gel 7-05 area(s) 2 ity of 00:00: (two) [place] 00 times Medical daily as Branch needed for Pain (scale 4-6). Apply 5g to affected areas BID PRN nicotine 21 2021-0 Yes [id number] 1{patch Apply 1 [facility] mg/24 hr 7-05 } Patch to ity of patch 00:00: area(s) [place] 00 daily. Medical Apply 21mg Branch patch daily x 6 weeks; then apply 14mf patch daily x 2 weeks; then apply 7mg patch daily x 2 weeks. Stop smoking on initiation of therapy nicotine Yes [id number] 1{patch Apply 1 [facility] mg/24 hr 7-05 } Patch to ity of patch 00:00: area(s) [place] 00 every 24 Medical (twenty-fo Branch ur) hours. Apply 21mg patch daily x 6 weeks; then apply 14mf patch daily x 2 weeks; then apply 7mg patch daily x 2 weeks. Stop smoking on initiation of therapy nicotine Yes [id number] 1{patch Apply 1 [facility] mg/24 hr 7-05 } Patch to ity of patch 00:00: area(s) [place] 00 every 24 Medical (twenty-fo Branch ur) hours. Apply 21mg patch daily x 6 weeks; then apply 14mf patch daily x 2 weeks; then apply 7mg patch daily x 2 weeks. Stop smoking on initiation of therapy PIOGLITAZON Yes [id number] TAKE 1 [facility] E 15 mg 7-05 TABLET BY ity of tablet 00:00: MOUTH [place] 00 EVERY DAY Medical Branch Diclofenac 2021-0 Yes [id number] Apply to [facility] Sodium 7-05 area(s) 4 ity of (VOLTAREN) 00:00: (four) [place] 1 % gel 00 times Medical daily. Branch lidocaine 5 Yes [id number] Apply to [facility] % gel 7-05 area(s) 2 ity of 00:00: (two) [place] 00 times Medical daily as Branch needed for Pain (scale 4-6). Apply 5g to affected areas BID PRN nicotine Yes [id number] 1{patch Apply 1 [facility] mg/24 hr 7-05 } Patch to ity of patch 00:00: area(s) [place] 00 daily. Medical Apply 21mg Branch patch daily x 6 weeks; then apply 14mf patch daily x 2 weeks; then apply 7mg patch daily x 2 weeks. Stop smoking on initiation of therapy nicotine 14 Yes [id number] 1{patch Apply 1 [facility] mg/24 hr 7-05 } Patch to ity of patch 00:00: area(s) [place] 00 every 24 Medical (twenty-fo Branch ur) hours. Apply 21mg patch daily x 6 weeks; then apply 14mf patch daily x 2 weeks; then apply 7mg patch daily x 2 weeks. Stop smoking on initiation of therapy nicotine 7 Yes [id number] 1{patch Apply 1 [facility] mg/24 hr 7-05 } Patch to ity of patch 00:00: area(s) [place] 00 every 24 Medical (twenty-fo Branch ur) hours. Apply 21mg patch daily x 6 weeks; then apply 14mf patch daily x 2 weeks; then apply 7mg patch daily x 2 weeks. Stop smoking on initiation of therapy PIOGLITAZON Yes [id number] TAKE 1 [facility] E 15 mg 7-05 TABLET BY ity of tablet 00:00: MOUTH [place] 00 EVERY DAY Medical Branch Diclofenac Yes [id number] Apply to [facility] Sodium 7-05 area(s) 4 ity of (VOLTAREN) 00:00: (four) [place] 1 % gel 00 times Medical daily. Branch lidocaine 5 Yes [id number] Apply to [facility] % gel 7-05 area(s) 2 ity of 00:00: (two) [place] 00 times Medical daily as Branch needed for Pain (scale 4-6). Apply 5g to affected areas BID PRN nicotine Yes [id number] 1{patch Apply 1 [facility] mg/24 hr 7-05 } Patch to ity of patch 00:00: area(s) [place] 00 daily. Medical Apply 21mg Branch patch daily x 6 weeks; then apply 14mf patch daily x 2 weeks; then apply 7mg patch daily x 2 weeks. Stop smoking on initiation of therapy nicotine 14 Yes [id number] 1{patch Apply 1 [facility] mg/24 hr 7-05 } Patch to ity of patch 00:00: area(s) [place] 00 every 24 Medical (twenty-fo Branch ur) hours. Apply 21mg patch daily x 6 weeks; then apply 14mf patch daily x 2 weeks; then apply 7mg patch daily x 2 weeks. Stop smoking on initiation of therapy nicotine 7 Yes [id number] 1{patch Apply 1 [facility] mg/24 hr 7-05 } Patch to ity of patch 00:00: area(s) [place] 00 every 24 Medical (twenty-fo Branch ur) hours. Apply 21mg patch daily x 6 weeks; then apply 14mf patch daily x 2 weeks; then apply 7mg patch daily x 2 weeks. Stop smoking on initiation of therapy PIOGLITAZON Yes [id number] TAKE 1 [facility] E 15 mg 7-05 TABLET BY ity of tablet 00:00: MOUTH [place] 00 EVERY DAY Medical Branch Diclofenac 2021- Yes [id number] Apply to [facility] Sodium 7-05 area(s) 4 ity of (VOLTAREN) 00:00: (four) [place] 1 % gel 00 times Medical daily. Branch lidocaine 5 Yes [id number] Apply to [facility] % gel 7-05 area(s) 2 ity of 00:00: (two) [place] 00 times Medical daily as Branch needed for Pain (scale 4-6). Apply 5g to affected areas BID PRN nicotine Yes [id number] 1{patch Apply 1 [facility] mg/24 hr 7-05 } Patch to ity of patch 00:00: area(s) [place] 00 daily. Medical Apply 21mg Branch patch daily x 6 weeks; then apply 14mf patch daily x 2 weeks; then apply 7mg patch daily x 2 weeks. Stop smoking on initiation of therapy nicotine 14 Yes [id number] 1{patch Apply 1 [facility] mg/24 hr 7-05 } Patch to ity of patch 00:00: area(s) [place] 00 every 24 Medical (twenty-fo Branch ur) hours. Apply 21mg patch daily x 6 weeks; then apply 14mf patch daily x 2 weeks; then apply 7mg patch daily x 2 weeks. Stop smoking on initiation of therapy nicotine Yes [id number] 1{patch Apply 1 [facility] mg/24 hr 7-05 } Patch to ity of patch 00:00: area(s) [place] 00 every 24 Medical (twenty-fo Branch ur) hours. Apply 21mg patch daily x 6 weeks; then apply 14mf patch daily x 2 weeks; then apply 7mg patch daily x 2 weeks. Stop smoking on initiation of therapy PIOGLITAZON Yes [id number] TAKE 1 [facility] E 15 mg 7-05 TABLET BY ity of tablet 00:00: MOUTH [place] 00 EVERY DAY Medical Branch Diclofenac Yes [id number] Apply to [facility] Sodium 7-05 area(s) 4 ity of (VOLTAREN) 00:00: (four) [place] 1 % gel 00 times Medical daily. Branch lidocaine 5 2021- Yes [id number] Apply to [facility] % gel 7-05 area(s) 2 ity of 00:00: (two) [place] 00 times Medical daily as Branch needed for Pain (scale 4-6). Apply 5g to affected areas BID PRN nicotine Yes [id number] 1{patch Apply 1 [facility] mg/24 hr 7-05 } Patch to ity of patch 00:00: area(s) [place] 00 daily. Medical Apply 21mg Branch patch daily x 6 weeks; then apply 14mf patch daily x 2 weeks; then apply 7mg patch daily x 2 weeks. Stop smoking on initiation of therapy nicotine 14 Yes [id number] 1{patch Apply 1 [facility] mg/24 hr 7-05 } Patch to ity of patch 00:00: area(s) [place] 00 every 24 Medical (twenty-fo Branch ur) hours. Apply 21mg patch daily x 6 weeks; then apply 14mf patch daily x 2 weeks; then apply 7mg patch daily x 2 weeks. Stop smoking on initiation of therapy nicotine Yes [id number] 1{patch Apply 1 [facility] mg/24 hr 7-05 } Patch to ity of patch 00:00: area(s) [place] 00 every 24 Medical (twenty-fo Branch ur) hours. Apply 21mg patch daily x 6 weeks; then apply 14mf patch daily x 2 weeks; then apply 7mg patch daily x 2 weeks. Stop smoking on initiation of therapy Diclofenac 2021- Yes [id number] Apply to [facility] Sodium 7-05 area(s) 4 ity of (VOLTAREN) 00:00: (four) [place] 1 % gel 00 times Medical daily. Branch lidocaine 5 2021- Yes [id number] Apply to [facility] % gel 7-05 area(s) 2 ity of 00:00: (two) [place] 00 times Medical daily as Branch needed for Pain (scale 4-6). Apply 5g to affected areas BID PRN nicotine Yes [id number] 1{patch Apply 1 [facility] mg/24 hr 7-05 } Patch to ity of patch 00:00: area(s) [place] 00 daily. Medical Apply 21mg Branch patch daily x 6 weeks; then apply 14mf patch daily x 2 weeks; then apply 7mg patch daily x 2 weeks. Stop smoking on initiation of therapy nicotine 14 Yes [id number] 1{patch Apply 1 [facility] mg/24 hr 7-05 } Patch to ity of patch 00:00: area(s) [place] 00 every 24 Medical (twenty-fo Branch ur) hours. Apply 21mg patch daily x 6 weeks; then apply 14mf patch daily x 2 weeks; then apply 7mg patch daily x 2 weeks. Stop smoking on initiation of therapy nicotine Yes [id number] 1{patch Apply 1 [facility] mg/24 hr 7-05 } Patch to ity of patch 00:00: area(s) [place] 00 every 24 Medical (twenty-fo Branch ur) hours. Apply 21mg patch daily x 6 weeks; then apply 14mf patch daily x 2 weeks; then apply 7mg patch daily x 2 weeks. Stop smoking on initiation of therapy Diclofenac Yes [id number] Apply to [facility] Sodium 7-05 area(s) 4 ity of (VOLTAREN) 00:00: (four) [place] 1 % gel 00 times Medical daily. Branch lidocaine 5 Yes [id number] Apply to [facility] % gel 7-05 area(s) 2 ity of 00:00: (two) [place] 00 times Medical daily as Branch needed for Pain (scale 4-6). Apply 5g to affected areas BID PRN nicotine Yes [id number] 1{patch Apply 1 [facility] mg/24 hr 7-05 } Patch to ity of patch 00:00: area(s) [place] 00 daily. Medical Apply 21mg Branch patch daily x 6 weeks; then apply 14mf patch daily x 2 weeks; then apply 7mg patch daily x 2 weeks. Stop smoking on initiation of therapy nicotine 14 Yes [id number] 1{patch Apply 1 [facility] mg/24 hr 7-05 } Patch to ity of patch 00:00: area(s) [place] 00 every 24 Medical (twenty-fo Branch ur) hours. Apply 21mg patch daily x 6 weeks; then apply 14mf patch daily x 2 weeks; then apply 7mg patch daily x 2 weeks. Stop smoking on initiation of therapy nicotine 7 Yes [id number] 1{patch Apply 1 [facility] mg/24 hr 7-05 } Patch to ity of patch 00:00: area(s) [place] 00 every 24 Medical (twenty-fo Branch ur) hours. Apply 21mg patch daily x 6 weeks; then apply 14mf patch daily x 2 weeks; then apply 7mg patch daily x 2 weeks. Stop smoking on initiation of therapy Diclofenac Yes [id number] Apply to [facility] Sodium 7-05 area(s) 4 ity of (VOLTAREN) 00:00: (four) [place] 1 % gel 00 times Medical daily. Branch lidocaine 5 Yes [id number] Apply to [facility] % gel 7-05 area(s) 2 ity of 00:00: (two) [place] 00 times Medical daily as Branch needed for Pain (scale 4-6). Apply 5g to affected areas BID PRN nicotine Yes [id number] 1{patch Apply 1 [facility] mg/24 hr 7-05 } Patch to ity of patch 00:00: area(s) [place] 00 daily. Medical Apply 21mg Branch patch daily x 6 weeks; then apply 14mf patch daily x 2 weeks; then apply 7mg patch daily x 2 weeks. Stop smoking on initiation of therapy nicotine 14 Yes [id number] 1{patch Apply 1 [facility] mg/24 hr 7-05 } Patch to ity of patch 00:00: area(s) [place] 00 every 24 Medical (twenty-fo Branch ur) hours. Apply 21mg patch daily x 6 weeks; then apply 14mf patch daily x 2 weeks; then apply 7mg patch daily x 2 weeks. Stop smoking on initiation of therapy nicotine 7 Yes [id number] 1{patch Apply 1 [facility] mg/24 hr 7-05 } Patch to ity of patch 00:00: area(s) [place] 00 every 24 Medical (twenty-fo Branch ur) hours. Apply 21mg patch daily x 6 weeks; then apply 14mf patch daily x 2 weeks; then apply 7mg patch daily x 2 weeks. Stop smoking on initiation of therapy Diclofenac Yes [id number] Apply to [facility] Sodium 7-05 area(s) 4 ity of (VOLTAREN) 00:00: (four) [place] 1 % gel 00 times Medical daily. Branch lidocaine 5 Yes Apply to [facility] % gel 7-05 area(s) 2 ity of 00:00: (two) [place] 00 times Medical daily as Branch needed for Pain (scale 4-6). Apply 5g to affected areas BID PRN nicotine Yes [id number] 1{patch Apply 1 [facility] mg/24 hr 7-05 } Patch to ity of patch 00:00: area(s) [place] 00 daily. Medical Apply 21mg Branch patch daily x 6 weeks; then apply 14mf patch daily x 2 weeks; then apply 7mg patch daily x 2 weeks. Stop smoking on initiation of therapy nicotine Yes [id number] 1{patch Apply 1 [facility] mg/24 hr 7-05 } Patch to ity of patch 00:00: area(s) [place] 00 every 24 Medical (twenty-fo Branch ur) hours. Apply 21mg patch daily x 6 weeks; then apply 14mf patch daily x 2 weeks; then apply 7mg patch daily x 2 weeks. Stop smoking on initiation of therapy nicotine Yes [id number] 1{patch Apply 1 [facility] mg/24 hr 7-05 } Patch to ity of patch 00:00: area(s) [place] 00 every 24 Medical (twenty-fo Branch ur) hours. Apply 21mg patch daily x 6 weeks; then apply 14mf patch daily x 2 weeks; then apply 7mg patch daily x 2 weeks. Stop smoking on initiation of therapy Diclofenac Yes [id number] Apply to [facility] Sodium 7-05 area(s) 4 ity of (VOLTAREN) 00:00: (four) [place] 1 % gel 00 times Medical daily. Branch lidocaine Yes [id number] Apply to [facility] % gel 7-05 area(s) 2 ity of 00:00: (two) [place] 00 times Medical daily as Branch needed for Pain (scale 4-6). Apply 5g to affected areas BID PRN nicotine Yes [id number] 1{patch Apply 1 [facility] mg/24 hr 7-05 } Patch to ity of patch 00:00: area(s) [place] 00 daily. Medical Apply 21mg Branch patch daily x 6 weeks; then apply 14mf patch daily x 2 weeks; then apply 7mg patch daily x 2 weeks. Stop smoking on initiation of therapy nicotine Yes [id number] 1{patch Apply 1 [facility] mg/24 hr 7-05 } Patch to ity of patch 00:00: area(s) [place] 00 every 24 Medical (twenty-fo Branch ur) hours. Apply 21mg patch daily x 6 weeks; then apply 14mf patch daily x 2 weeks; then apply 7mg patch daily x 2 weeks. Stop smoking on initiation of therapy nicotine 7 Yes [id number] 1{patch Apply 1 [facility] mg/24 hr 7-05 } Patch to ity of patch 00:00: area(s) [place] 00 every 24 Medical (twenty-fo Branch ur) hours. Apply 21mg patch daily x 6 weeks; then apply 14mf patch daily x 2 weeks; then apply 7mg patch daily x 2 weeks. Stop smoking on initiation of therapy Diclofenac Yes [id number] Apply to [facility] Sodium 7-05 area(s) 4 ity of (VOLTAREN) 00:00: (four) [place] 1 % gel 00 times Medical daily. Branch lidocaine 5 Yes [id number] Apply to [facility] % gel 7-05 area(s) 2 ity of 00:00: (two) [place] 00 times Medical daily as Branch needed for Pain (scale 4-6). Apply 5g to affected areas BID PRN nicotine Yes [id number] 1{patch Apply 1 [facility] mg/24 hr 7-05 } Patch to ity of patch 00:00: area(s) [place] 00 daily. Medical Apply 21mg Branch patch daily x 6 weeks; then apply 14mf patch daily x 2 weeks; then apply 7mg patch daily x 2 weeks. Stop smoking on initiation of therapy nicotine Yes [id number] 1{patch Apply 1 [facility] mg/24 hr 7-05 } Patch to ity of patch 00:00: area(s) [place] 00 every 24 Medical (twenty-fo Branch ur) hours. Apply 21mg patch daily x 6 weeks; then apply 14mf patch daily x 2 weeks; then apply 7mg patch daily x 2 weeks. Stop smoking on initiation of therapy nicotine 7 Yes [id number] 1{patch Apply 1 [facility] mg/24 hr 7-05 } Patch to ity of patch 00:00: area(s) [place] 00 every 24 Medical (twenty-fo Branch ur) hours. Apply 21mg patch daily x 6 weeks; then apply 14mf patch daily x 2 weeks; then apply 7mg patch daily x 2 weeks. Stop smoking on initiation of therapy Diclofenac Yes Apply to [facility] Sodium 7-05 area(s) 4 ity of (VOLTAREN) 00:00: (four) [place] 1 % gel 00 times Medical daily. Branch lidocaine 5 Yes Apply to [facility] % gel 7-05 area(s) 2 ity of 00:00: (two) [place] 00 times Medical daily as Branch needed for Pain (scale 4-6). Apply 5g to affected areas BID PRN nicotine 21 Yes [id number] 1{patch Apply 1 [facility] mg/24 hr 7-05 } Patch to ity of patch 00:00: area(s) [place] 00 daily. Medical Apply 21mg Branch patch daily x 6 weeks; then apply 14mf patch daily x 2 weeks; then apply 7mg patch daily x 2 weeks. Stop smoking on initiation of therapy nicotine 14 Yes [id number] 1{patch Apply 1 [facility] mg/24 hr 7-05 } Patch to ity of patch 00:00: area(s) [place] 00 every 24 Medical (twenty-fo Branch ur) hours. Apply 21mg patch daily x 6 weeks; then apply 14mf patch daily x 2 weeks; then apply 7mg patch daily x 2 weeks. Stop smoking on initiation of therapy nicotine 7 Yes [id number] 1{patch Apply 1 [facility] mg/24 hr 7-05 } Patch to ity of patch 00:00: area(s) [place] 00 every 24 Medical (twenty-fo Branch ur) hours. Apply 21mg patch daily x 6 weeks; then apply 14mf patch daily x 2 weeks; then apply 7mg patch daily x 2 weeks. Stop smoking on initiation of therapy Diclofenac Yes [id number] Apply to [facility] Sodium 7-05 area(s) 4 ity of (VOLTAREN) 00:00: (four) [place] 1 % gel 00 times Medical daily. Branch lidocaine 5 Yes Apply to [facility] % gel 7-05 area(s) 2 ity of 00:00: (two) [place] 00 times Medical daily as Branch needed for Pain (scale 4-6). Apply 5g to affected areas BID PRN nicotine 21 Yes [id number] 1{patch Apply 1 [facility] mg/24 hr 7-05 } Patch to ity of patch 00:00: area(s) [place] 00 daily. Medical Apply 21mg Branch patch daily x 6 weeks; then apply 14mf patch daily x 2 weeks; then apply 7mg patch daily x 2 weeks. Stop smoking on initiation of therapy nicotine Yes [id number] 1{patch Apply 1 [facility] mg/24 hr 7-05 } Patch to ity of patch 00:00: area(s) [place] 00 every 24 Medical (twenty-fo Branch ur) hours. Apply 21mg patch daily x 6 weeks; then apply 14mf patch daily x 2 weeks; then apply 7mg patch daily x 2 weeks. Stop smoking on initiation of therapy nicotine Yes [id number] 1{patch Apply 1 [facility] mg/24 hr 7-05 } Patch to ity of patch 00:00: area(s) [place] 00 every 24 Medical (twenty-fo Branch ur) hours. Apply 21mg patch daily x 6 weeks; then apply 14mf patch daily x 2 weeks; then apply 7mg patch daily x 2 weeks. Stop smoking on initiation of therapy Diclofenac Yes [id number] Apply to [facility] Sodium 7-05 area(s) 4 ity of (VOLTAREN) 00:00: (four) [place] 1 % gel 00 times Medical daily. Branch lidocaine 5 Yes [id number] Apply to [facility] % gel 7-05 area(s) 2 ity of 00:00: (two) [place] 00 times Medical daily as Branch needed for Pain (scale 4-6). Apply 5g to affected areas BID PRN nicotine Yes [id number] 1{patch Apply 1 [facility] mg/24 hr 7-05 } Patch to ity of patch 00:00: area(s) [place] 00 daily. Medical Apply 21mg Branch patch daily x 6 weeks; then apply 14mf patch daily x 2 weeks; then apply 7mg patch daily x 2 weeks. Stop smoking on initiation of therapy nicotine 14 Yes [id number] 1{patch Apply 1 [facility] mg/24 hr 7-05 } Patch to ity of patch 00:00: area(s) [place] 00 every 24 Medical (twenty-fo Branch ur) hours. Apply 21mg patch daily x 6 weeks; then apply 14mf patch daily x 2 weeks; then apply 7mg patch daily x 2 weeks. Stop smoking on initiation of therapy nicotine 7 Yes [id number] 1{patch Apply 1 [facility] mg/24 hr 7-05 } Patch to ity of patch 00:00: area(s) [place] 00 every 24 Medical (twenty-fo Branch ur) hours. Apply 21mg patch daily x 6 weeks; then apply 14mf patch daily x 2 weeks; then apply 7mg patch daily x 2 weeks. Stop smoking on initiation of therapy Diclofenac Yes [id number] Apply to [facility] Sodium 7-05 area(s) 4 ity of (VOLTAREN) 00:00: (four) [place] 1 % gel 00 times Medical daily. Branch lidocaine 5 Yes [id number] Apply to [facility] % gel 7-05 area(s) 2 ity of 00:00: (two) [place] 00 times Medical daily as Branch needed for Pain (scale 4-6). Apply 5g to affected areas BID PRN nicotine Yes [id number] 1{patch Apply 1 [facility] mg/24 hr 7-05 } Patch to ity of patch 00:00: area(s) [place] 00 daily. Medical Apply 21mg Branch patch daily x 6 weeks; then apply 14mf patch daily x 2 weeks; then apply 7mg patch daily x 2 weeks. Stop smoking on initiation of therapy nicotine 14 Yes [id number] 1{patch Apply 1 [facility] mg/24 hr 7-05 } Patch to ity of patch 00:00: area(s) [place] 00 every 24 Medical (twenty- Branch ur) hours. Apply 21mg patch daily x 6 weeks; then apply 14mf patch daily x 2 weeks; then apply 7mg patch daily x 2 weeks. Stop smoking on initiation of therapy nicotine 7 Yes [id number] 1{patch Apply 1 [facility] mg/24 hr 7-05 } Patch to ity of patch 00:00: area(s) [place] 00 every 24 Medical (twenty- Branch ur) hours. Apply 21mg patch daily x 6 weeks; then apply 14mf patch daily x 2 weeks; then apply 7mg patch daily x 2 weeks. Stop smoking on initiation of therapy Diclofenac Yes [id number] Apply to [facility] Sodium 7-05 area(s) 4 ity of (VOLTAREN) 00:00: (four) [place] 1 % gel 00 times Medical daily. Branch lidocaine 5 Yes [id number] Apply to [facility] % gel 7-05 area(s) 2 ity of 00:00: (two) [place] 00 times Medical daily as Branch needed for Pain (scale 4-6). Apply 5g to affected areas BID PRN nicotine Yes [id number] 1{patch Apply 1 [facility] mg/24 hr 7-05 } Patch to ity of patch 00:00: area(s) [place] 00 daily. Medical Apply 21mg Branch patch daily x 6 weeks; then apply 14mf patch daily x 2 weeks; then apply 7mg patch daily x 2 weeks. Stop smoking on initiation of therapy nicotine Yes [id number] 1{patch Apply 1 [facility] mg/24 hr 7-05 } Patch to ity of patch 00:00: area(s) [place] 00 every 24 Medical (twenty-fo Branch ur) hours. Apply 21mg patch daily x 6 weeks; then apply 14mf patch daily x 2 weeks; then apply 7mg patch daily x 2 weeks. Stop smoking on initiation of therapy nicotine Yes [id number] 1{patch Apply 1 [facility] mg/24 hr 7-05 } Patch to ity of patch 00:00: area(s) [place] 00 every 24 Medical (twenty-fo Branch ur) hours. Apply 21mg patch daily x 6 weeks; then apply 14mf patch daily x 2 weeks; then apply 7mg patch daily x 2 weeks. Stop smoking on initiation of therapy Diclofenac Yes [id number] Apply to [facility] Sodium 7-05 area(s) 4 ity of (VOLTAREN) 00:00: (four) [place] 1 % gel 00 times Medical daily. Branch lidocaine 5 Yes [id number] Apply to [facility] % gel 7-05 area(s) 2 ity of 00:00: (two) [place] 00 times Medical daily as Branch needed for Pain (scale 4-6). Apply 5g to affected areas BID PRN nicotine Yes [id number] 1{patch Apply 1 [facility] mg/24 hr 7-05 } Patch to ity of patch 00:00: area(s) [place] 00 daily. Medical Apply 21mg Branch patch daily x 6 weeks; then apply 14mf patch daily x 2 weeks; then apply 7mg patch daily x 2 weeks. Stop smoking on initiation of therapy nicotine 14 Yes [id number] 1{patch Apply 1 [facility] mg/24 hr 7-05 } Patch to ity of patch 00:00: area(s) [place] 00 every 24 Medical (twenty-fo Branch ur) hours. Apply 21mg patch daily x 6 weeks; then apply 14mf patch daily x 2 weeks; then apply 7mg patch daily x 2 weeks. Stop smoking on initiation of therapy nicotine 7 Yes [id number] 1{patch Apply 1 [facility] mg/24 hr 7-05 } Patch to ity of patch 00:00: area(s) [place] 00 every 24 Medical (twenty-fo Branch ur) hours. Apply 21mg patch daily x 6 weeks; then apply 14mf patch daily x 2 weeks; then apply 7mg patch daily x 2 weeks. Stop smoking on initiation of therapy Diclofenac Yes [id number] Apply to [facility] Sodium 7-05 area(s) 4 ity of (VOLTAREN) 00:00: (four) [place] 1 % gel 00 times Medical daily. Branch lidocaine 5 Yes [id number] Apply to [facility] % gel 7-05 area(s) 2 ity of 00:00: (two) [place] 00 times Medical daily as Branch needed for Pain (scale 4-6). Apply 5g to affected areas BID PRN nicotine Yes [id number] 1{patch Apply 1 [facility] mg/24 hr 7-05 } Patch to ity of patch 00:00: area(s) [place] 00 daily. Medical Apply 21mg Branch patch daily x 6 weeks; then apply 14mf patch daily x 2 weeks; then apply 7mg patch daily x 2 weeks. Stop smoking on initiation of therapy nicotine 14 Yes [id number] 1{patch Apply 1 [facility] mg/24 hr 7-05 } Patch to ity of patch 00:00: area(s) [place] 00 every 24 Medical (twenty-fo Branch ur) hours. Apply 21mg patch daily x 6 weeks; then apply 14mf patch daily x 2 weeks; then apply 7mg patch daily x 2 weeks. Stop smoking on initiation of therapy nicotine 7 Yes [id number] 1{patch Apply 1 [facility] mg/24 hr 7-05 } Patch to ity of patch 00:00: area(s) [place] 00 every 24 Medical (twenty-fo Branch ur) hours. Apply 21mg patch daily x 6 weeks; then apply 14mf patch daily x 2 weeks; then apply 7mg patch daily x 2 weeks. Stop smoking on initiation of therapy Diclofenac 2021- Yes Apply to [facility] Sodium 7-05 area(s) 4 ity of (VOLTAREN) 00:00: (four) [place] 1 % gel 00 times Medical daily. Branch lidocaine 5 Yes Apply to [facility] % gel 7-05 area(s) 2 ity of 00:00: (two) [place] 00 times Medical daily as Branch needed for Pain (scale 4-6). Apply 5g to affected areas BID PRN nicotine 21 Yes [id number] 1{patch Apply 1 [facility] mg/24 hr 7-05 } Patch to ity of patch 00:00: area(s) [place] 00 daily. Medical Apply 21mg Branch patch daily x 6 weeks; then apply 14mf patch daily x 2 weeks; then apply 7mg patch daily x 2 weeks. Stop smoking on initiation of therapy nicotine 14 Yes [id number] 1{patch Apply 1 [facility] mg/24 hr 7-05 } Patch to ity of patch 00:00: area(s) [place] 00 every 24 Medical (twenty-fo Branch ur) hours. Apply 21mg patch daily x 6 weeks; then apply 14mf patch daily x 2 weeks; then apply 7mg patch daily x 2 weeks. Stop smoking on initiation of therapy nicotine 7 Yes [id number] 1{patch Apply 1 [facility] mg/24 hr 7-05 } Patch to ity of patch 00:00: area(s) [place] 00 every 24 Medical (twenty-fo Branch ur) hours. Apply 21mg patch daily x 6 weeks; then apply 14mf patch daily x 2 weeks; then apply 7mg patch daily x 2 weeks. Stop smoking on initiation of therapy Diclofenac 2021- Yes Apply to [facility] Sodium 7-05 area(s) 4 ity of (VOLTAREN) 00:00: (four) [place] 1 % gel 00 times Medical daily. Branch lidocaine 5 2021- Yes Apply to [facility] % gel 7-05 area(s) 2 ity of 00:00: (two) [place] 00 times Medical daily as Branch needed for Pain (scale 4-6). Apply 5g to affected areas BID PRN nicotine 21 2021-0 Yes [id number] 1{patch Apply 1 [facility] mg/24 hr 7-05 } Patch to ity of patch 00:00: area(s) [place] 00 daily. Medical Apply 21mg Branch patch daily x 6 weeks; then apply 14mf patch daily x 2 weeks; then apply 7mg patch daily x 2 weeks. Stop smoking on initiation of therapy nicotine 14 2021-0 Yes [id number] 1{patch Apply 1 [facility] mg/24 hr 7-05 } Patch to ity of patch 00:00: area(s) [place] 00 every 24 Medical (twenty-fo Branch ur) hours. Apply 21mg patch daily x 6 weeks; then apply 14mf patch daily x 2 weeks; then apply 7mg patch daily x 2 weeks. Stop smoking on initiation of therapy nicotine 7 2021- Yes [id number] 1{patch Apply 1 [facility] mg/24 hr 7-05 } Patch to ity of patch 00:00: area(s) [place] 00 every 24 Medical (twenty-fo Branch ur) hours. Apply 21mg patch daily x 6 weeks; then apply 14mf patch daily x 2 weeks; then apply 7mg patch daily x 2 weeks. Stop smoking on initiation of therapy Diclofenac 2021-0 Yes Apply to [facility] Sodium 7-05 area(s) 4 ity of (VOLTAREN) 00:00: (four) [place] 1 % gel 00 times Medical daily. Branch lidocaine 5 2021-0 Yes Apply to [facility] % gel 7-05 area(s) 2 ity of 00:00: (two) [place] 00 times Medical daily as Branch needed for Pain (scale 4-6). Apply 5g to affected areas BID PRN Diclofenac 2021-0 Yes Apply to [facility] Sodium 7-05 area(s) 4 ity of (VOLTAREN) 00:00: (four) [place] 1 % gel 00 times Medical daily. Branch lidocaine 5 2021-0 Yes Apply to [facility] % gel 7-05 area(s) 2 ity of 00:00: (two) [place] 00 times Medical daily as Branch needed for Pain (scale 4-6). Apply 5g to affected areas BID PRN Diclofenac 2021-0 Yes Apply to [facility] Sodium 7-05 area(s) 4 ity of (VOLTAREN) 00:00: (four) [place] 1 % gel 00 times Medical daily. Branch lidocaine 5 2021-0 Yes Apply to [facility] % gel 7-05 area(s) 2 ity of 00:00: (two) [place] 00 times Medical daily as Branch needed for Pain (scale 4-6). Apply 5g to affected areas BID PRN Diclofenac 2021-0 Yes Apply to [facility] Sodium 7-05 area(s) 4 ity of (VOLTAREN) 00:00: (four) [place] 1 % gel 00 times Medical daily. Branch lidocaine 5 2021-0 Yes Apply to [facility] % gel 7-05 area(s) 2 ity of 00:00: (two) [place] 00 times Medical daily as Branch needed for Pain (scale 4-6). Apply 5g to affected areas BID PRN Diclofenac 2021-0 Yes Apply to [facility] Sodium 7-05 area(s) 4 ity of (VOLTAREN) 00:00: (four) [place] 1 % gel 00 times Medical daily. Branch lidocaine 5 2021-0 Yes Apply to [facility] % gel 7-05 area(s) 2 ity of 00:00: (two) [place] 00 times Medical daily as Branch needed for Pain (scale 4-6). Apply 5g to affected areas BID PRN Diclofenac 2021-0 Yes Apply to [facility] Sodium 7-05 area(s) 4 ity of (VOLTAREN) 00:00: (four) [place] 1 % gel 00 times Medical daily. Branch lidocaine 5 2021-0 Yes Apply to [facility] % gel 7-05 area(s) 2 ity of 00:00: (two) [place] 00 times Medical daily as Branch needed for Pain (scale 4-6). Apply 5g to affected areas BID PRN Diclofenac 2-0 Yes Apply to [facility] Sodium 7-05 area(s) 4 ity of (VOLTAREN) 00:00: (four) [place] 1 % gel 00 times Medical daily. Branch lidocaine 5 2021-0 Yes [id number] Apply to [facility] % gel 7-05 area(s) 2 ity of 00:00: (two) [place] 00 times Medical daily as Branch needed for Pain (scale 4-6). Apply 5g to affected areas BID PRN Diclofenac 2022-0 Yes Apply to [facility] Sodium 7-05 area(s) 4 ity of (VOLTAREN) 00:00: (four) [place] 1 % gel 00 times Medical daily. Branch lidocaine 5 2021-0 Yes [id number] Apply to [facility] % gel 7-05 area(s) 2 ity of 00:00: (two) [place] 00 times Medical daily as Branch needed for Pain (scale 4-6). Apply 5g to affected areas BID PRN Diclofenac 2-0 Yes Apply to [facility] Sodium 7-05 area(s) 4 ity of (VOLTAREN) 00:00: (four) [place] 1 % gel 00 times Medical daily. Branch lidocaine 5 2021-0 Yes Apply to [facility] % gel 7-05 area(s) 2 ity of 00:00: (two) [place] 00 times Medical daily as Branch needed for Pain (scale 4-6). Apply 5g to affected areas BID PRN Diclofenac 2-0 Yes Apply to [facility] Sodium 7-05 area(s) 4 ity of (VOLTAREN) 00:00: (four) [place] 1 % gel 00 times Medical daily. Branch lidocaine 5 2021-0 Yes Apply to [facility] % gel 7-05 area(s) 2 ity of 00:00: (two) [place] 00 times Medical daily as Branch needed for Pain (scale 4-6). Apply 5g to affected areas BID PRN Diclofenac 2-0 Yes Apply to [facility] Sodium 7-05 area(s) 4 ity of (VOLTAREN) 00:00: (four) [place] 1 % gel 00 times Medical daily. Branch lidocaine 5 2021-0 Yes Apply to [facility] % gel 7-05 area(s) 2 ity of 00:00: (two) [place] 00 times Medical daily as Branch needed for Pain (scale 4-6). Apply 5g to affected areas BID PRN Diclofenac 2022-0 Yes Apply to [facility] Sodium 7-05 area(s) 4 ity of (VOLTAREN) 00:00: (four) [place] 1 % gel 00 times Medical daily. Branch lidocaine 5 2021-0 Yes Apply to [facility] % gel 7-05 area(s) 2 ity of 00:00: (two) [place] 00 times Medical daily as Branch needed for Pain (scale 4-6). Apply 5g to affected areas BID PRN Diclofenac 2022-0 Yes Apply to [facility] Sodium 7-05 area(s) 4 ity of (VOLTAREN) 00:00: (four) [place] 1 % gel 00 times Medical daily. Branch lidocaine 5 2021-0 Yes Apply to [facility] % gel 7-05 area(s) 2 ity of 00:00: (two) [place] 00 times Medical daily as Branch needed for Pain (scale 4-6). Apply 5g to affected areas BID PRN Diclofenac 2022-0 Yes Apply to [facility] Sodium 7-05 area(s) 4 ity of (VOLTAREN) 00:00: (four) [place] 1 % gel 00 times Medical daily. Branch lidocaine 5 2021-0 Yes Apply to [facility] % gel 7-05 area(s) 2 ity of 00:00: (two) [place] 00 times Medical daily as Branch needed for Pain (scale 4-6). Apply 5g to affected areas BID PRN Diclofenac 2-0 Yes Apply to [facility] Sodium 7-05 area(s) 4 ity of (VOLTAREN) 00:00: (four) [place] 1 % gel 00 times Medical daily. Branch lidocaine 5 2021-0 Yes Apply to [facility] % gel 7-05 area(s) 2 ity of 00:00: (two) [place] 00 times Medical daily as Branch needed for Pain (scale 4-6). Apply 5g to affected areas BID PRN Diclofenac 2022-0 Yes Apply to [facility] Sodium 7-05 area(s) 4 ity of (VOLTAREN) 00:00: (four) [place] 1 % gel 00 times Medical daily. Branch lidocaine 5 2-0 Yes Apply to [facility] % gel 7-05 area(s) 2 ity of 00:00: (two) [place] 00 times Medical daily as Branch needed for Pain (scale 4-6). Apply 5g to affected areas BID PRN Diclofenac 2022-0 Yes Apply to [facility] Sodium 7-05 area(s) 4 ity of (VOLTAREN) 00:00: (four) [place] 1 % gel 00 times Medical daily. Branch lidocaine 5 2021-0 Yes Apply to [facility] % gel 7-05 area(s) 2 ity of 00:00: (two) [place] 00 times Medical daily as Branch needed for Pain (scale 4-6). Apply 5g to affected areas BID PRN Diclofenac 2021-0 Yes Apply to [facility] Sodium 7-05 area(s) 4 ity of (VOLTAREN) 00:00: (four) [place] 1 % gel 00 times Medical daily. Branch lidocaine 5 2021-0 Yes Apply to [facility] % gel 7-05 area(s) 2 ity of 00:00: (two) [place] 00 times Medical daily as Branch needed for Pain (scale 4-6). Apply 5g to affected areas BID PRN Diclofenac 2021-0 Yes Apply to [facility] Sodium 7-05 area(s) 4 ity of (VOLTAREN) 00:00: (four) [place] 1 % gel 00 times Medical daily. Branch lidocaine 5 Yes Apply to [facility] % gel 7-05 area(s) 2 ity of 00:00: (two) [place] 00 times Medical daily as Branch needed for Pain (scale 4-6). Apply 5g to affected areas BID PRN Diclofenac 2021-0 Yes Apply to [facility] Sodium 7-05 area(s) 4 ity of (VOLTAREN) 00:00: (four) [place] 1 % gel 00 times Medical daily. Branch lidocaine 5 Yes Apply to [facility] % gel 7-05 area(s) 2 ity of 00:00: (two) [place] 00 times Medical daily as Branch needed for Pain (scale 4-6). Apply 5g to affected areas BID PRN Diclofenac 2021-0 Yes Apply to [facility] Sodium 7-05 area(s) 4 ity of (VOLTAREN) 00:00: (four) [place] 1 % gel 00 times Medical daily. Branch lidocaine 5 2021-0 Yes Apply to [facility] % gel 7-05 area(s) 2 ity of 00:00: (two) [place] 00 times Medical daily as Branch needed for Pain (scale 4-6). Apply 5g to affected areas BID PRN nicotine 21 2021-0 2023- No [id number] 1{patch Apply 1 [facility] mg/24 hr 7-05 -05 } Patch to ity of patch 00:00: 00:00 [facility](s) [place] 00 :00 daily. Medical Apply 21mg Branch patch daily x 6 weeks; then apply 14mf patch daily x 2 weeks; then apply 7mg patch daily x 2 weeks. Stop smoking on initiation of therapy nicotine 2022- No [id number] 1{patch Apply 1 [facility] mg/24 hr 05-08-05 } Patch to ity of patch 00:00: 00:00 [facility](s) [place] 00 :00 every 24 Medical (twenty-fo Branch ur) hours. Apply 21mg patch daily x 6 weeks; then apply 14mf patch daily x 2 weeks; then apply 7mg patch daily x 2 weeks. Stop smoking on initiation of therapy nicotine 2022- No [id number] 1{patch Apply 1 [facility] mg/24 hr 05-08 } Patch to ity of patch 00:00: 00:00 [facility](s) [place] 00 :00 every 24 Medical (twenty-fo Branch ur) hours. Apply 21mg patch daily x 6 weeks; then apply 14mf patch daily x 2 weeks; then apply 7mg patch daily x 2 weeks. Stop smoking on initiation of therapy nicotine 2022- No [id number] 1{patch Apply 1 [facility] mg/24 hr 05-08 } Patch to ity of patch 00:00: 00:00 [facility](s) [place] 00 :00 daily. Medical Apply 21mg Branch patch daily x 6 weeks; then apply 14mf patch daily x 2 weeks; then apply 7mg patch daily x 2 weeks. Stop smoking on initiation of therapy nicotine 2022- No [id number] 1{patch Apply 1 [facility] mg/24 hr 05-08 } Patch to ity of patch 00:00: 00:00 [facility](s) [place] 00 :00 every 24 Medical (twenty-fo Branch ur) hours. Apply 21mg patch daily x 6 weeks; then apply 14mf patch daily x 2 weeks; then apply 7mg patch daily x 2 weeks. Stop smoking on initiation of therapy nicotine 2022- No [id number] 1{patch Apply 1 [facility] mg/24 hr 05-08-05 } Patch to ity of patch 00:00: 00:00 [facility](s) [place] 00 :00 every 24 Medical (twenty-fo Branch ur) hours. Apply 21mg patch daily x 6 weeks; then apply 14mf patch daily x 2 weeks; then apply 7mg patch daily x 2 weeks. Stop smoking on initiation of therapy nicotine 2022- No [id number] 1{patch Apply 1 [facility] mg/24 hr 7-05 -05 } Patch to ity of patch 00:00: 00:00 [facility] [place] 00 :00 daily. Medical Apply 21mg Branch patch daily x 6 weeks; then apply 14mf patch daily x 2 weeks; then apply 7mg patch daily x 2 weeks. Stop smoking on initiation of therapy nicotine 2022- No [id number] 1{patch Apply 1 [facility] mg/24 hr 7-05 -05 } Patch to ity of patch 00:00: 00:00 [facility] [place] 00 :00 every 24 Medical (twenty-fo Branch ur) hours. Apply 21mg patch daily x 6 weeks; then apply 14mf patch daily x 2 weeks; then apply 7mg patch daily x 2 weeks. Stop smoking on initiation of therapy nicotine 2022- No [id number] 1{patch Apply 1 [facility] mg/24 hr 7-05 -05 } Patch to ity of patch 00:00: 00:00 [facility] [place] 00 :00 every 24 Medical (twenty-fo Branch ur) hours. Apply 21mg patch daily x 6 weeks; then apply 14mf patch daily x 2 weeks; then apply 7mg patch daily x 2 weeks. Stop smoking on initiation of therapy nicotine 2022- No [id number] 1{patch Apply 1 [facility] mg/24 hr 7-05 -05 } Patch to ity of patch 00:00: 00:00 [facility] [place] 00 :00 daily. Medical Apply 21mg Branch patch daily x 6 weeks; then apply 14mf patch daily x 2 weeks; then apply 7mg patch daily x 2 weeks. Stop smoking on initiation of therapy nicotine 2022- No [id number] 1{patch Apply 1 [facility] mg/24 hr 7-05 -05 } Patch to ity of patch 00:00: 00:00 [facility] [place] 00 :00 every 24 Medical (twenty-fo Branch ur) hours. Apply 21mg patch daily x 6 weeks; then apply 14mf patch daily x 2 weeks; then apply 7mg patch daily x 2 weeks. Stop smoking on initiation of therapy nicotine 7 2022- No [id number] 1{patch Apply 1 [facility] mg/24 hr 7-05 -05 } Patch to ity of patch 00:00: 00:00 [facility] [place] 00 :00 every 24 Medical ([facility] ur) hours. Apply 21mg patch daily x 6 weeks; then apply 14mf patch daily x 2 weeks; then apply 7mg patch daily x 2 weeks. Stop smoking on initiation of therapy PIOGLITAZON 2021- No [id number] TAKE 1 [facility] E 15 mg 7-05 10-05 TABLET BY ity of tablet 00:00: 00:00 MOUTH [place] 00 :00 EVERY DAY Medical Branch PIOGLITAZON 2021- No [id number] TAKE 1 [facility] E 15 mg 7-05 10-05 TABLET BY ity of tablet 00:00: 00:00 MOUTH [place] 00 :00 EVERY DAY Medical Branch gabapentin 2021-0 Yes [id number] 600mg Take 1 [facility] 600 mg 5-31 tablet by ity of tablet 00:00: mouth 3 00 (three) Medical times Branch daily. furosemide 0 Yes [id number] Take lasix [facility] (LASIX) 40 5-31 40 mg BID ity of mg tablet 00:00: [place] 00 Medical Branch allopurinoL 2021-0 Yes [id number] 100mg Take 1 [facility] 100 mg 5-31 tablet by ity of tablet 00:00: mouth [place] 00 daily. Medical Branch gabapentin 2021-0 Yes [id number] 600mg Take 1 [facility] 600 mg 5-31 tablet by ity of tablet 00:00: mouth 3 [place] 00 (three) Medical times Branch daily. furosemide 2021-0 Yes [id number] Take lasix [facility] (LASIX) 40 5-31 40 mg BID ity of mg tablet 00:00: [place] 00 Medical Branch allopurinoL 2021-0 Yes [id number] 100mg Take 1 [facility] 100 mg 5-31 tablet by ity of tablet 00:00: mouth [place] 00 daily. Medical Branch furosemide 2021-0 Yes [id number] Take lasix [facility] (LASIX) 40 5-31 40 mg BID ity of mg tablet 00:00: [place] 00 Medical Branch furosemide 2021-0 Yes [id number] Take lasix [facility] (LASIX) 40 5-31 40 mg BID ity of mg tablet 00:00: [place] 00 Medical Branch furosemide 2021-0 Yes [id number] Take lasix [facility] (LASIX) 40 5-31 40 mg BID ity of mg tablet 00:00: [place] 00 Medical Branch furosemide 2021-0 2021- No [id number] Take lasix [facility] (LASIX) 40 5-31 10-05 40 mg BID ity of mg tablet 00:00: 00:00 [place] 00 :00 Medical Branch furosemide 2021-0 2021- No [id number] Take lasix [facility] (LASIX) 40 5-31 10-05 40 mg BID ity of mg tablet 00:00: 00:00 [place] 00 :00 Medical Branch gabapentin 2021-0 2021- No [id number] 600mg Take 1 [facility] 600 mg 04-0305 tablet by ity of tablet 00:00: 00:00 mouth 3 [place] 00 :00 (three) Medical times Branch daily. allopurinoL 2021-0 2021- No [id number] 100mg Take 1 [facility] 100 mg 04-0305 tablet by ity of tablet 00:00: 00:00 mouth [place] 00 :00 daily. Medical Branch blood sugar 2021-0 Yes [id number] CHECK [facility] diagnostic 5-19 BLOOD ity of (ONETOUCH 00:00: GLUCOSE [place] ULTRA TEST) 00 FOUR TIMES Me dical strip DAILY Branch blood sugar 2021-0 Yes [id number] CHECK [facility] diagnostic 5-19 BLOOD ity of (ONETOUCH 00:00: GLUCOSE [place] ULTRA TEST) 00 FOUR TIMES Me dical strip DAILY Branch blood sugar 2021-0 Yes [id number] CHECK [facility] diagnostic 5-19 BLOOD ity of (ONETOUCH 00:00: GLUCOSE [place] ULTRA TEST) 00 FOUR TIMES Me dical strip DAILY Branch blood sugar 2021-0 Yes [id number] CHECK [facility] diagnostic 5-19 BLOOD ity of (ONETOUCH 00:00: GLUCOSE [place] ULTRA TEST) 00 FOUR TIMES Me dical strip DAILY Branch blood sugar 2021-0 Yes [id number] CHECK [facility] diagnostic 5-19 BLOOD ity of (ONETOUCH 00:00: GLUCOSE [place] ULTRA TEST) 00 FOUR TIMES Me dical strip DAILY Branch blood sugar 2022-0 Yes [id number] CHECK [facility] diagnostic 5-19 BLOOD ity of (ONETOUCH 00:00: GLUCOSE [place] ULTRA TEST) 00 FOUR TIMES Me dical strip DAILY Branch blood sugar 2-0 Yes [id number] CHECK [facility] diagnostic 5-19 BLOOD ity of (ONETOUCH 00:00: GLUCOSE [place] ULTRA TEST) 00 FOUR TIMES Me dical strip DAILY Branch blood sugar 2-0 Yes [id number] CHECK [facility] diagnostic 5-19 BLOOD ity of (ONETOUCH 00:00: GLUCOSE [place] ULTRA TEST) 00 FOUR TIMES Me dical strip DAILY Branch blood sugar 2-0 Yes [id number] CHECK [facility] diagnostic 5-19 BLOOD ity of (ONETOUCH 00:00: GLUCOSE [place] ULTRA TEST) 00 FOUR TIMES Me dical strip DAILY Branch blood sugar 2021-0 Yes [id number] CHECK [facility] diagnostic 5-19 BLOOD ity of (ONETOUCH 00:00: GLUCOSE [place] ULTRA TEST) 00 FOUR TIMES Me dical strip DAILY Branch blood sugar 2021-0 Yes [id number] CHECK [facility] diagnostic 5-19 BLOOD ity of (ONETOUCH 00:00: GLUCOSE [place] ULTRA TEST) 00 FOUR TIMES Me dical strip DAILY Branch blood sugar 2-0 Yes [id number] CHECK [facility] diagnostic 5-19 BLOOD ity of (ONETOUCH 00:00: GLUCOSE [place] ULTRA TEST) 00 FOUR TIMES Me dical strip DAILY Branch blood sugar 2-0 Yes [id number] CHECK [facility] diagnostic 5-19 BLOOD ity of (ONETOUCH 00:00: GLUCOSE [place] ULTRA TEST) 00 FOUR TIMES Me dical strip DAILY Branch blood sugar 2-0 Yes [id number] CHECK [facility] diagnostic 5-19 BLOOD ity of (ONETOUCH 00:00: GLUCOSE [place] ULTRA TEST) 00 FOUR TIMES Me dical strip DAILY Branch blood sugar 2-0 Yes [id number] CHECK [facility] diagnostic 5-19 BLOOD ity of (ONETOUCH 00:00: GLUCOSE [place] ULTRA TEST) 00 FOUR TIMES Me dical strip DAILY Branch blood sugar 2-0 Yes [id number] CHECK [facility] diagnostic 5-19 BLOOD ity of (ONETOUCH 00:00: GLUCOSE [place] ULTRA TEST) 00 FOUR TIMES Me dical strip DAILY Branch blood sugar 2-0 Yes [id number] CHECK [facility] diagnostic 5-19 BLOOD ity of (ONETOUCH 00:00: GLUCOSE [place] ULTRA TEST) 00 FOUR TIMES Me dical strip DAILY Branch blood sugar 2-0 Yes [id number] CHECK [facility] diagnostic 5-19 BLOOD ity of (ONETOUCH 00:00: GLUCOSE [place] ULTRA TEST) 00 FOUR TIMES Me dical strip DAILY Branch blood sugar 2-0 Yes [id number] CHECK [facility] diagnostic 5-19 BLOOD ity of (ONETOUCH 00:00: GLUCOSE [place] ULTRA TEST) 00 FOUR TIMES Me dical strip DAILY Branch blood sugar 2-0 Yes [id number] CHECK [facility] diagnostic 5-19 BLOOD ity of (ONETOUCH 00:00: GLUCOSE [place] ULTRA TEST) 00 FOUR TIMES Me dical strip DAILY Branch blood sugar 2-0 Yes [id number] CHECK [facility] diagnostic 5-19 BLOOD ity of (ONETOUCH 00:00: GLUCOSE [place] ULTRA TEST) 00 FOUR TIMES Me dical strip DAILY Branch blood sugar 2-0 Yes [id number] CHECK [facility] diagnostic 5-19 BLOOD ity of (ONETOUCH 00:00: GLUCOSE [place] ULTRA TEST) 00 FOUR TIMES Me dical strip DAILY Branch blood sugar 2-0 Yes [id number] CHECK [facility] diagnostic 5-19 BLOOD ity of (ONETOUCH 00:00: GLUCOSE [place] ULTRA TEST) 00 FOUR TIMES Me dical strip DAILY Branch blood sugar 2-0 Yes [id number] CHECK [facility] diagnostic 5-19 BLOOD ity of (ONETOUCH 00:00: GLUCOSE [place] ULTRA TEST) 00 FOUR TIMES Me dical strip DAILY Branch blood sugar 2-0 Yes [id number] CHECK [facility] diagnostic 5-19 BLOOD ity of (ONETOUCH 00:00: GLUCOSE [place] ULTRA TEST) 00 FOUR TIMES Me dical strip DAILY Branch blood sugar 2-0 Yes [id number] CHECK [facility] diagnostic 5-19 BLOOD ity of (ONETOUCH 00:00: GLUCOSE [place] ULTRA TEST) 00 FOUR TIMES Me dical strip DAILY Branch blood sugar 2-0 Yes [id number] CHECK [facility] diagnostic 5-19 BLOOD ity of (ONETOUCH 00:00: GLUCOSE [place] ULTRA TEST) 00 FOUR TIMES Me dical strip DAILY Branch blood sugar 2022-0 Yes [id number] CHECK [facility] diagnostic 5-19 BLOOD ity of (ONETOUCH 00:00: GLUCOSE [place] ULTRA TEST) 00 FOUR TIMES Me dical strip DAILY Branch blood sugar 2-0 Yes [id number] CHECK [facility] diagnostic 5-19 BLOOD ity of (ONETOUCH 00:00: GLUCOSE [place] ULTRA TEST) 00 FOUR TIMES Me dical strip DAILY Branch blood sugar 2022-0 Yes [id number] CHECK [facility] diagnostic 5-19 BLOOD ity of (ONETOUCH 00:00: GLUCOSE [place] ULTRA TEST) 00 FOUR TIMES Me dical strip DAILY Branch blood sugar 2-0 Yes [id number] CHECK [facility] diagnostic 5-19 BLOOD ity of (ONETOUCH 00:00: GLUCOSE [place] ULTRA TEST) 00 FOUR TIMES Me dical strip DAILY Branch blood sugar 2-0 Yes [id number] CHECK [facility] diagnostic 5-19 BLOOD ity of (ONETOUCH 00:00: GLUCOSE [place] ULTRA TEST) 00 FOUR TIMES Me dical strip DAILY Branch blood sugar 2-0 Yes [id number] CHECK [facility] diagnostic 5-19 BLOOD ity of (ONETOUCH 00:00: GLUCOSE [place] ULTRA TEST) 00 FOUR TIMES Me dical strip DAILY Branch blood sugar 2-0 Yes [id number] CHECK [facility] diagnostic 5-19 BLOOD ity of (ONETOUCH 00:00: GLUCOSE [place] ULTRA TEST) 00 FOUR TIMES Me dical strip DAILY Branch blood sugar 2-0 Yes [id number] CHECK [facility] diagnostic 5-19 BLOOD ity of (ONETOUCH 00:00: GLUCOSE [place] ULTRA TEST) 00 FOUR TIMES Me dical strip DAILY Branch blood sugar 2-0 Yes [id number] CHECK [facility] diagnostic 5-19 BLOOD ity of (ONETOUCH 00:00: GLUCOSE [place] ULTRA TEST) 00 FOUR TIMES Me dical strip DAILY Branch blood sugar 2-0 Yes [id number] CHECK [facility] diagnostic 5-19 BLOOD ity of (ONETOUCH 00:00: GLUCOSE [place] ULTRA TEST) 00 FOUR TIMES Me dical strip DAILY Branch blood sugar 2022-0 Yes [id number] CHECK [facility] diagnostic 5-19 BLOOD ity of (ONETOUCH 00:00: GLUCOSE [place] ULTRA TEST) 00 FOUR TIMES Me dical strip DAILY Branch blood sugar 2022-0 Yes [id number] CHECK [facility] diagnostic 5-19 BLOOD ity of (ONETOUCH 00:00: GLUCOSE [place] ULTRA TEST) 00 FOUR TIMES Me dical strip DAILY Branch blood sugar 2022-0 Yes [id number] CHECK [facility] diagnostic 5-19 BLOOD ity of (ONETOUCH 00:00: GLUCOSE [place] ULTRA TEST) 00 FOUR TIMES Me dical strip DAILY Branch blood sugar Yes [id number] CHECK [facility] diagnostic 5-19 BLOOD ity of (ONETOUCH 00:00: GLUCOSE [place] ULTRA TEST) 00 FOUR TIMES Me dical strip DAILY Branch FLUTICASONE Yes [id number] SHAKE Univers PROPIONATE 5-18 LIQUID AND ity of 50 00:00: USE 2 [place] mcg/actuati 00 SPRAYS IN Med ical on nasal EACH Branch spray NOSTRIL EVERY DAY FLUTICASONE Yes [id number] SHAKE [facility] PROPIONATE 5-18 LIQUID AND ity of 50 00:00: USE 2 [place] mcg/actuati 00 SPRAYS IN Med ical on nasal EACH Branch spray NOSTRIL EVERY DAY FLUTICASONE Yes [id number] SHAKE Univers PROPIONATE 5-18 LIQUID AND ity of 50 00:00: USE 2 [place] mcg/actuati 00 SPRAYS IN Med ical on nasal EACH Branch spray NOSTRIL EVERY DAY FLUTICASONE Yes [id number] SHAKE Univers PROPIONATE 5-18 LIQUID AND ity of 50 00:00: USE 2 [place] mcg/actuati 00 SPRAYS IN Med ical on nasal EACH Branch spray NOSTRIL EVERY DAY FLUTICASONE Yes [id number] SHAKE Univers PROPIONATE 5-18 LIQUID AND ity of 50 00:00: USE 2 [place] mcg/actuati 00 SPRAYS IN Med ical on nasal EACH Branch spray NOSTRIL EVERY DAY FLUTICASONE Yes [id number] SHAKE Univers PROPIONATE 5-18 LIQUID AND ity of 50 00:00: USE 2 [place] mcg/actuati 00 SPRAYS IN Med ical on nasal EACH Branch spray NOSTRIL EVERY DAY FLUTICASONE Yes [id number] SHAKE Univers PROPIONATE 5-18 LIQUID AND ity of 50 00:00: USE 2 [place] mcg/actuati 00 SPRAYS IN Med ical on nasal EACH Branch spray NOSTRIL EVERY DAY FLUTICASONE Yes [id number] SHAKE Univers PROPIONATE 5-18 LIQUID AND ity of 50 00:00: USE 2 [place] mcg/actuati 00 SPRAYS IN Med ical on nasal EACH Branch spray NOSTRIL EVERY DAY FLUTICASONE Yes [id number] SHAKE Univers PROPIONATE 5-18 LIQUID AND ity of 50 00:00: USE 2 [place] mcg/actuati 00 SPRAYS IN Med ical on nasal EACH Branch spray NOSTRIL EVERY DAY FLUTICASONE Yes [id number] SHAKE Univers PROPIONATE 5-18 LIQUID AND ity of 50 00:00: USE 2 [place] mcg/actuati 00 SPRAYS IN Med ical on nasal EACH Branch spray NOSTRIL EVERY DAY FLUTICASONE Yes [id number] SHAKE Univers PROPIONATE 5-18 LIQUID AND ity of 50 00:00: USE 2 [place] mcg/actuati 00 SPRAYS IN Med ical on nasal EACH Branch spray NOSTRIL EVERY DAY FLUTICASONE Yes [id number] SHAKE Univers PROPIONATE 5-18 LIQUID AND ity of 50 00:00: USE 2 [place] mcg/actuati 00 SPRAYS IN Med ical on nasal EACH Branch spray NOSTRIL EVERY DAY FLUTICASONE Yes [id number] SHAKE Univers PROPIONATE 5-18 LIQUID AND ity of 50 00:00: USE 2 [place] mcg/actuati 00 SPRAYS IN Med ical on nasal EACH Branch spray NOSTRIL EVERY DAY FLUTICASONE 0 Yes [id number] SHAKE [facility] PROPIONATE 5-18 LIQUID AND ity of 50 00:00: USE 2 [place] mcg/actuati 00 SPRAYS IN Med ical on nasal EACH Branch spray NOSTRIL EVERY DAY FLUTICASONE 0 Yes [id number] SHAKE [facility] PROPIONATE 5-18 LIQUID AND ity of 50 00:00: USE 2 [place] mcg/actuati 00 SPRAYS IN Med ical on nasal EACH Branch spray NOSTRIL EVERY DAY FLUTICASONE Yes [id number] SHAKE [facility] PROPIONATE 5-18 LIQUID AND ity of 50 00:00: USE 2 [place] mcg/actuati 00 SPRAYS IN Med ical on nasal EACH Branch spray NOSTRIL EVERY DAY FLUTICASONE Yes [id number] SHAKE [facility] PROPIONATE 5-18 LIQUID AND ity of 50 00:00: USE 2 [place] mcg/actuati 00 SPRAYS IN Med ical on nasal EACH Branch spray NOSTRIL EVERY DAY FLUTICASONE 2021- No [id number] SHAKE Univers PROPIONATE 5-18 12-29 LIQUID AND it y of 50 00:00: 00:00 USE 2 [place] mcg/actuati 00 :00 SPRAYS IN Med ical on nasal EACH Branch spray NOSTRIL EVERY DAY BUDESONIDE- 2021-0 Yes [id number] INHALE 2 [facility] FORMOTEROL 5-11 PUFFS BY ity o f 160-4.5 00:00: MOUTH [place] mcg/actuati 00 TWICE Medical on inhaler DAILY Branch BUDESONIDE- 2021-0 Yes [id number] INHALE 2 [facility] FORMOTEROL 5-11 PUFFS BY ity o f 160-4.5 00:00: MOUTH [place] mcg/actuati 00 TWICE Medical on inhaler DAILY Branch BUDESONIDE- 2021-0 Yes [id number] INHALE 2 [facility] FORMOTEROL 5-11 PUFFS BY ity o f 160-4.5 00:00: MOUTH [place] mcg/actuati 00 TWICE Medical on inhaler DAILY Branch BUDESONIDE- 2021-0 Yes [id number] INHALE 2 [facility] FORMOTEROL 5-11 PUFFS BY ity o f 160-4.5 00:00: MOUTH [place] mcg/actuati 00 TWICE Medical on inhaler DAILY Branch BUDESONIDE- 2021-0 Yes [id number] INHALE 2 [facility] FORMOTEROL 5-11 PUFFS BY ity o f 160-4.5 00:00: MOUTH [place] mcg/actuati 00 TWICE Medical on inhaler DAILY Branch BUDESONIDE- 2021-0 Yes [id number] INHALE 2 [facility] FORMOTEROL 5-11 PUFFS BY ity o f 160-4.5 00:00: MOUTH [place] mcg/actuati 00 TWICE Medical on inhaler DAILY Branch BUDESONIDE- 2021-0 Yes [id number] INHALE 2 [facility] FORMOTEROL 5-11 PUFFS BY ity o f 160-4.5 00:00: MOUTH [place] mcg/actuati 00 TWICE Medical on inhaler DAILY Branch BUDESONIDE- 2021-0 Yes [id number] INHALE 2 [facility] FORMOTEROL 5-11 PUFFS BY ity o f 160-4.5 00:00: MOUTH [place] mcg/actuati 00 TWICE Medical on inhaler DAILY Branch BUDESONIDE- 2021-0 Yes [id number] INHALE 2 [facility] FORMOTEROL 5-11 PUFFS BY ity o f 160-4.5 00:00: MOUTH [place] mcg/actuati 00 TWICE Medical on inhaler DAILY Branch BUDESONIDE- 2021-0 Yes [id number] INHALE 2 [facility] FORMOTEROL 5-11 PUFFS BY ity o f 160-4.5 00:00: MOUTH [place] mcg/actuati 00 TWICE Medical on inhaler DAILY Branch BUDESONIDE- 2021-0 Yes [id number] INHALE 2 [facility] FORMOTEROL 5-11 PUFFS BY ity o f 160-4.5 00:00: MOUTH [place] mcg/actuati 00 TWICE Medical on inhaler DAILY Branch BUDESONIDE- 2021-0 Yes [id number] INHALE 2 [facility] FORMOTEROL 5-11 PUFFS BY ity o f 160-4.5 00:00: MOUTH [place] mcg/actuati 00 TWICE Medical on inhaler DAILY Branch BUDESONIDE- 2021-0 Yes [id number] INHALE 2 [facility] FORMOTEROL 5-11 PUFFS BY ity o f 160-4.5 00:00: MOUTH [place] mcg/actuati 00 TWICE Medical on inhaler DAILY Branch BUDESONIDE- 2021-0 Yes [id number] INHALE 2 [facility] FORMOTEROL 5-11 PUFFS BY ity o f 160-4.5 00:00: MOUTH [place] mcg/actuati 00 TWICE Medical on inhaler DAILY Branch BUDESONIDE- 2021-0 Yes [id number] INHALE 2 [facility] FORMOTEROL 5-11 PUFFS BY ity o f 160-4.5 00:00: MOUTH [place] mcg/actuati 00 TWICE Medical on inhaler DAILY Branch BUDESONIDE- 2021-0 Yes [id number] INHALE 2 [facility] FORMOTEROL 5-11 PUFFS BY ity o f 160-4.5 00:00: MOUTH [place] mcg/actuati 00 TWICE Medical on inhaler DAILY Branch BUDESONIDE- 2021-0 Yes [id number] INHALE 2 [facility] FORMOTEROL 5-11 PUFFS BY ity o f 160-4.5 00:00: MOUTH [place] mcg/actuati 00 TWICE Medical on inhaler DAILY Branch BUDESONIDE- 2021-0 Yes [id number] INHALE 2 [facility] FORMOTEROL 5-11 PUFFS BY ity o f 160-4.5 00:00: MOUTH [place] mcg/actuati 00 TWICE Medical on inhaler DAILY Branch BUDESONIDE- 2021-0 Yes [id number] INHALE 2 [facility] FORMOTEROL 5-11 PUFFS BY ity o f 160-4.5 00:00: MOUTH [place] mcg/actuati 00 TWICE Medical on inhaler DAILY Branch BUDESONIDE- 2021-0 Yes [id number] INHALE 2 [facility] FORMOTEROL 5-11 PUFFS BY ity o f 160-4.5 00:00: MOUTH [place] mcg/actuati 00 TWICE Medical on inhaler DAILY Branch BUDESONIDE- 2021-0 Yes [id number] INHALE 2 [facility] FORMOTEROL 5-11 PUFFS BY ity o f 160-4.5 00:00: MOUTH [place] mcg/actuati 00 TWICE Medical on inhaler DAILY Branch BUDESONIDE- 2021-0 Yes [id number] INHALE 2 [facility] FORMOTEROL 5-11 PUFFS BY ity o f 160-4.5 00:00: MOUTH [place] mcg/actuati 00 TWICE Medical on inhaler DAILY Branch BUDESONIDE- 2021-0 Yes [id number] INHALE 2 [facility] FORMOTEROL 5-11 PUFFS BY ity o f 160-4.5 00:00: MOUTH [place] mcg/actuati 00 TWICE Medical on inhaler DAILY Branch BUDESONIDE- 2021-0 Yes [id number] INHALE 2 [facility] FORMOTEROL 5-11 PUFFS BY ity o f 160-4.5 00:00: MOUTH [place] mcg/actuati 00 TWICE Medical on inhaler DAILY Branch BUDESONIDE- 2021-0 Yes [id number] INHALE 2 [facility] FORMOTEROL 5-11 PUFFS BY ity o f 160-4.5 00:00: MOUTH [place] mcg/actuati 00 TWICE Medical on inhaler DAILY Branch BUDESONIDE- 2021-0 Yes [id number] INHALE 2 [facility] FORMOTEROL 5-11 PUFFS BY ity o f 160-4.5 00:00: MOUTH [place] mcg/actuati 00 TWICE Medical on inhaler DAILY Branch BUDESONIDE- 2021-0 Yes [id number] INHALE 2 [facility] FORMOTEROL 5-11 PUFFS BY ity o f 160-4.5 00:00: MOUTH [place] mcg/actuati 00 TWICE Medical on inhaler DAILY Branch BUDESONIDE- 2021-0 Yes [id number] INHALE 2 [facility] FORMOTEROL 5-11 PUFFS BY ity o f 160-4.5 00:00: MOUTH [place] mcg/actuati 00 TWICE Medical on inhaler DAILY Branch BUDESONIDE- 2021-0 Yes [id number] INHALE 2 [facility] FORMOTEROL 5-11 PUFFS BY ity o f 160-4.5 00:00: MOUTH [place] mcg/actuati 00 TWICE Medical on inhaler DAILY Branch BUDESONIDE- 2021-0 Yes [id number] INHALE 2 [facility] FORMOTEROL 5-11 PUFFS BY ity o f 160-4.5 00:00: MOUTH [place] mcg/actuati 00 TWICE Medical on inhaler DAILY Branch BUDESONIDE- 2021-0 Yes [id number] INHALE 2 [facility] FORMOTEROL 5-11 PUFFS BY ity o f 160-4.5 00:00: MOUTH [place] mcg/actuati 00 TWICE Medical on inhaler DAILY Branch BUDESONIDE- 2021-0 Yes [id number] INHALE 2 [facility] FORMOTEROL 5-11 PUFFS BY ity o f 160-4.5 00:00: MOUTH [place] mcg/actuati 00 TWICE Medical on inhaler DAILY Branch BUDESONIDE- 2021-0 Yes [id number] INHALE 2 [facility] FORMOTEROL 5-11 PUFFS BY ity o f 160-4.5 00:00: MOUTH [place] mcg/actuati 00 TWICE Medical on inhaler DAILY Branch BUDESONIDE- 2021-0 Yes [id number] INHALE 2 [facility] FORMOTEROL 5-11 PUFFS BY ity o f 160-4.5 00:00: MOUTH [place] mcg/actuati 00 TWICE Medical on inhaler DAILY Branch BUDESONIDE- 2021-0 Yes [id number] INHALE 2 [facility] FORMOTEROL 5-11 PUFFS BY ity o f 160-4.5 00:00: MOUTH [place] mcg/actuati 00 TWICE Medical on inhaler DAILY Branch BUDESONIDE- 2021-0 Yes [id number] INHALE 2 [facility] FORMOTEROL 5-11 PUFFS BY ity o f 160-4.5 00:00: MOUTH [place] mcg/actuati 00 TWICE Medical on inhaler DAILY Branch BUDESONIDE- 2021-0 Yes [id number] INHALE 2 [facility] FORMOTEROL 5-11 PUFFS BY ity o f 160-4.5 00:00: MOUTH [place] mcg/actuati 00 TWICE Medical on inhaler DAILY Branch BUDESONIDE- 2021-0 Yes [id number] INHALE 2 [facility] FORMOTEROL 5-11 PUFFS BY ity o f 160-4.5 00:00: MOUTH [place] mcg/actuati 00 TWICE Medical on inhaler DAILY Branch BUDESONIDE- 0 Yes [id number] INHALE 2 [facility] FORMOTEROL 5-11 PUFFS BY ity o f 160-4.5 00:00: MOUTH [place] mcg/actuati 00 TWICE Medical on inhaler DAILY Branch BUDESONIDE- 2021-0 Yes [id number] INHALE 2 [facility] FORMOTEROL 5-11 PUFFS BY ity o f 160-4.5 00:00: MOUTH [place] mcg/actuati 00 TWICE Medical on inhaler DAILY Branch BUDESONIDE- 2021-0 Yes [id number] INHALE 2 [facility] FORMOTEROL 5-11 PUFFS BY ity o f 160-4.5 00:00: MOUTH [place] mcg/actuati 00 TWICE Medical on inhaler DAILY Branch DULoxetine Yes [id number] 60mg Take 1 U nivers 60 mg 2-09 capsule by ity of capsule 00:00: mouth 2 (two) Medical times Branch daily. DULoxetine Yes [id number] 60mg Take 1 U nivers 60 mg 2-09 capsule by ity of capsule 00:00: mouth 2 (two) Medical times Branch daily. DULoxetine Yes [id number] 60mg Take 1 U nivers 60 mg 2-09 capsule by ity of capsule 00:00: mouth 2 (two) Medical times Branch daily. DULoxetine 0 Yes [id number] 60mg Take 1 U nivers 60 mg 2-09 capsule by ity of capsule 00:00: mouth 2 (two) Medical times Branch daily. DULoxetine 0 Yes [id number] 60mg Take 1 U nivers 60 mg 2-09 capsule by ity of capsule 00:00: mouth 2 (two) Medical times Branch daily. DULoxetine 2021- No [id number] 60mg Take 1 [facility] 60 mg 12-13 [id number] capsule by ity o f capsule 00:00: 00:00 mouth 2 [place] 00 :00 (two) Medical times Branch daily. DULoxetine 2021- No [id number] 60mg Take 1 [facility] 60 mg 12-13 [id number] capsule by ity o f capsule 00:00: 00:00 mouth 2 [place] 00 :00 (two) Medical times Branch daily. carvediloL 2022-0 Yes [id number] 25mg Take 1 U nivers 25 mg 2-04 tablet by ity of tablet 00:00: mouth 2 (two) Medical times Branch daily. hydrALAZINE 2021-0 Yes [id number] 50mg Take 1 [facility] 50 mg 2-04 tablet by ity of tablet 00:00: mouth 2 (two) Medical times Branch daily. metFORMIN 2021-0 Yes [id number] 500mg Take 1 [facility] 500 mg 2-04 tablet by ity of tablet 00:00: mouth (two) Medical times Branch daily with meals. diclofenac- 2021-0 Yes [id number] 1{tbl} Take 1 [facility] misoprostoL 2-04 9107 tablet by ity of 50-200 00:00: mouth 2 [place] mg-mcg per 00 (two) Medical tablet times Branch daily. carvediloL 2021-0 Yes [id number] 25mg Take 1 U nivers 25 mg 2-04 tablet by ity of tablet 00:00: mouth (two) Medical times Branch daily. hydrALAZINE 2021-0 Yes [id number] 50mg Take 1 [facility] 50 mg 2-04 tablet by ity of tablet 00:00: mouth (two) Medical times Branch daily. metFORMIN 2021-0 Yes [id number] 500mg Take 1 [facility] 500 mg 2-04 tablet by ity of tablet 00:00: mouth (two) Medical times Branch daily with meals. diclofenac- 2021-0 Yes [id number] 1{tbl} Take 1 [facility] misoprostoL 2-04 9107 tablet by ity of 50-200 00:00: mouth 2 [place] mg-mcg per 00 (two) Medical tablet times Branch daily. carvediloL 2022-0 Yes [id number] 25mg Take 1 U nivers 25 mg 2-04 tablet by ity of tablet 00:00: mouth 2 (two) Medical times Branch daily. hydrALAZINE 2-0 Yes [id number] 50mg Take 1 [facility] 50 mg 2-04 tablet by ity of tablet 00:00: mouth 2 [place] 00 (two) Medical times Branch daily. metFORMIN 2021-0 Yes [id number] 500mg Take 1 [facility] 500 mg 2-04 tablet by ity of tablet 00:00: mouth (two) Medical times Branch daily with meals. diclofenac- 2021-0 Yes [id number] 1{tbl} Take 1 [facility] misoprostoL 2-04 9107 tablet by ity of 50-200 00:00: mouth 2 [place] mg-mcg per 00 (two) Medical tablet times Branch daily. carvediloL 2021-0 Yes [id number] 25mg Take 1 U nivers 25 mg 2-04 tablet by ity of tablet 00:00: mouth 2 (two) Medical times Branch daily. hydrALAZINE 2021-0 Yes [id number] 50mg Take 1 [facility] 50 mg 2-04 tablet by ity of tablet 00:00: mouth (two) Medical times Branch daily. metFORMIN 2021-0 Yes [id number] 500mg Take 1 [facility] 500 mg 2-04 tablet by ity of tablet 00:00: mouth (two) Medical times Branch daily with meals. diclofenac- 2021-0 Yes [id number] 1{tbl} Take 1 [facility] misoprostoL 2-04 9107 tablet by ity of 50-200 00:00: mouth 2 [place] mg-mcg per 00 (two) Medical tablet times Branch daily. carvediloL 2021-0 Yes [id number] 25mg Take 1 [facility] nivers 25 mg 2-04 tablet by ity of tablet 00:00: mouth (two) Medical times Branch daily. hydrALAZINE 2021-0 Yes [id number] 50mg Take 1 [facility] 50 mg 2-04 tablet by ity of tablet 00:00: mouth 2 (two) Medical times Branch daily. metFORMIN 2021-0 Yes [id number] 500mg Take 1 [facility] 500 mg 2-04 tablet by [facility] of tablet 00:00: mouth 2 (two) Medical times Branch daily with meals. diclofenac- 2021-0 Yes [id number] 1{tbl} Take 1 [facility] misoprostoL 2-04 9107 tablet by ity of 50-200 00:00: mouth 2 [place] mg-mcg per 00 (two) Medical tablet times Branch daily. diclofenac- 2021-0 Yes [id number] 1{tbl} Take 1 [facility] misoprostoL 2-04 9107 tablet by ity of 50-200 00:00: mouth 2 [place] mg-mcg per 00 (two) Medical tablet times Branch daily. diclofenac- 2021-0 Yes [id number] 1{tbl} Take 1 [facility] misoprostoL 2-04 9107 tablet by ity of 50-200 00:00: mouth 2 [place] mg-mcg per 00 (two) Medical tablet times Branch daily. diclofenac- 2021-0 Yes [id number] 1{tbl} Take 1 [facility] misoprostoL 2-04 9107 tablet by ity of 50-200 00:00: mouth 2 [place] mg-mcg per 00 (two) Medical tablet times Branch daily. diclofenac- 2021-0 Yes [id number] 1{tbl} Take 1 [facility] misoprostoL 2-04 9107 tablet by ity of 50-200 00:00: mouth 2 [place] mg-mcg per 00 (two) Medical tablet times Branch daily. diclofenac- 2021-0 Yes [id number] 1{tbl} Take 1 [facility] misoprostoL 2-04 9107 tablet by ity of 50-200 00:00: mouth 2 [place] mg-mcg per 00 (two) Medical tablet times Branch daily. diclofenac- 2021-0 Yes [id number] 1{tbl} Take 1 [facility] misoprostoL 2-04 9107 tablet by ity of 50-200 00:00: mouth 2 [place] mg-mcg per 00 (two) Medical tablet times Branch daily. diclofenac- 2021-0 Yes [id number] 1{tbl} Take 1 [facility] misoprostoL 2-04 9107 tablet by ity of 50-200 00:00: mouth 2 [place] mg-mcg per 00 (two) Medical tablet times Branch daily. diclofenac- 2021-0 Yes [id number] 1{tbl} Take 1 [facility] misoprostoL 2-04 9107 tablet by ity of 50-200 00:00: mouth 2 [place] mg-mcg per 00 (two) Medical tablet times Branch daily. diclofenac- 2021-0 Yes [id number] 1{tbl} Take 1 [facility] misoprostoL 2-04 9107 tablet by ity of 50-200 00:00: mouth 2 [place] mg-mcg per 00 (two) Medical tablet times Branch daily. diclofenac- 2021-0 Yes [id number] 1{tbl} Take 1 [facility] misoprostoL 2-04 9107 tablet by ity of 50-200 00:00: mouth 2 [place] mg-mcg per 00 (two) Medical tablet times Branch daily. diclofenac- 2021-0 Yes [id number] 1{tbl} Take 1 [facility] misoprostoL 2-04 9107 tablet by ity of 50-200 00:00: mouth 2 [place] mg-mcg per 00 (two) Medical tablet times Branch daily. diclofenac- Yes [id number] 1{tbl} Take 1 [facility] misoprostoL 2-04 9107 tablet by ity of 50-200 00:00: mouth 2 [place] mg-mcg per 00 (two) Medical tablet times Branch daily. diclofenac- Yes [id number] 1{tbl} Take 1 [facility] misoprostoL 2-04 9107 tablet by ity of 50-200 00:00: mouth 2 [place] mg-mcg per 00 (two) Medical tablet times Branch daily. diclofenac- Yes [id number] 1{tbl} Take 1 [facility] misoprostoL 2-04 9107 tablet by ity of 50-200 00:00: mouth 2 [place] mg-mcg per 00 (two) Medical tablet times Branch daily. diclofenac- Yes [id number] 1{tbl} Take 1 [facility] misoprostoL 2-04 9107 tablet by ity of 50-200 00:00: mouth 2 [place] mg-mcg per 00 (two) Medical tablet times Branch daily. diclofenac- 2022- No [id number] 1{tbl} Take 1 [facility] misoprostoL 2-04 -05 9107 tablet by it y of 50-200 00:00: 00:00 mouth 2 [place] mg-mcg per 00 :00 (two) Medical tablet times Branch daily. diclofenac- 0 2022- No [id number] 1{tbl} Take 1 [facility] misoprostoL 2-04 -05 9107 tablet by it y of 50-200 00:00: 00:00 mouth 2 [place] mg-mcg per 00 :00 (two) Medical tablet times Branch daily. diclofenac- 0 2022- No [id number] 1{tbl} Take 1 [facility] misoprostoL 2-04 -05 9107 tablet by it y of 50-200 00:00: 00:00 mouth 2 [place] mg-mcg per 00 :00 (two) Medical tablet times Branch daily. diclofenac- 2022- No [id number] 1{tbl} Take 1 [facility] misoprostoL 2-04 - 9107 tablet by it y of 50-200 00:00: 00:00 mouth 2 [place] mg-mcg per 00 :00 (two) Medical tablet times Branch daily. carvediloL 2021- No [id number] 25mg Take 1 [facility] 25 mg 2-04 10-05 tablet by ity of tablet 00:00: 00:00 mouth 2 [place] 00 :00 (two) Medical times Branch daily. hydrALAZINE 2021- No [id number] 50mg Take 1 [facility] 50 mg 2-04 10-05 tablet by ity of tablet 00:00: 00:00 mouth 2 [place] 00 :00 (two) Medical times Branch daily. metFORMIN 2021- No [id number] 500mg Take 1 [facility] 500 mg 2-04 10-05 tablet by ity of tablet 00:00: 00:00 mouth 2 [place] 00 :00 (two) Medical times Branch daily with meals. carvediloL 2021- No [id number] 25mg Take 1 [facility] 25 mg 2-04 10-05 tablet by ity of tablet 00:00: 00:00 mouth 2 [place] 00 :00 (two) Medical times Branch daily. hydrALAZINE 2021- No [id number] 50mg Take 1 [facility] 50 mg 2-04 10-05 tablet by ity of tablet 00:00: 00:00 mouth 2 [place] 00 :00 (two) Medical times Branch daily. metFORMIN 2021- No [id number] 500mg Take 1 [facility] 500 mg 2-04 10-05 tablet by ity of tablet 00:00: 00:00 mouth 2 [place] 00 :00 (two) Medical times Branch daily with meals. GLIMEPIRIDE 2021- Yes [id number] TAKE 1 [facility] 2 mg tablet 2-03 TABLET BY ity of 00:00: MOUTH [place] 00 TWICE Medical DAILY Branch GLIMEPIRIDE 2021-0 Yes [id number] TAKE 1 [facility] 2 mg tablet 2-03 TABLET BY ity of 00:00: MOUTH [place] 00 TWICE Medical DAILY Branch GLIMEPIRIDE Yes [id number] TAKE 1 [facility] 2 mg tablet 2-03 TABLET BY ity of 00:00: MOUTH [place] 00 TWICE Medical DAILY Branch GLIMEPIRIDE Yes [id number] TAKE 1 [facility] 2 mg tablet 2-03 TABLET BY ity of 00:00: MOUTH [place] 00 TWICE Medical DAILY Branch GLIMEPIRIDE Yes [id number] TAKE 1 [facility] 2 mg tablet 2-03 TABLET BY ity of 00:00: MOUTH [place] 00 TWICE Medical DAILY Branch GLIMEPIRIDE 2021- No [id number] TAKE 1 [facility] 2 mg tablet 2-03 10-05 TABLET BY it y of 00:00: 00:00 MOUTH [place] 00 :00 TWICE Medical DAILY Branch GLIMEPIRIDE 2021- No [id number] TAKE 1 [facility] 2 mg tablet 2-03 10-05 TABLET BY it y of 00:00: 00:00 MOUTH [place] 00 :00 TWICE Medical DAILY Branch POTASSIUM 2020-11 Yes [id number] 10meq TAKE 1 [facility] CHLORIDE 10 2-08 TABLET BY ity of mEq CR 00:00: MOUTH [place] tablet 00 EVERY Medical SATURDAY, Branch SATURDAY, AND SATURDAY POTASSIUM 2020-11 Yes [id number] 10meq TAKE 1 [facility] CHLORIDE 10 2-08 TABLET BY ity of mEq CR 00:00: MOUTH [place] tablet 00 EVERY Medical SATURDAY, Branch SATURDAY, AND SATURDAY POTASSIUM 2020-11 Yes [id number] 10meq TAKE 1 [facility] CHLORIDE 10 2-08 TABLET BY ity of mEq CR 00:00: MOUTH [place] tablet 00 EVERY Medical SATURDAY, Branch SATURDAY, AND SATURDAY POTASSIUM 2020-11 Yes [id number] 10meq TAKE 1 [facility] CHLORIDE 10 2-08 TABLET BY ity of mEq CR 00:00: MOUTH [place] tablet 00 EVERY Medical SATURDAY, Branch SATURDAY, AND SATURDAY POTASSIUM 2020-11 Yes [id number] 10meq TAKE 1 [facility] CHLORIDE 10 2-08 TABLET BY ity of mEq CR 00:00: MOUTH [place] tablet 00 EVERY Medical SATURDAY, Branch SATURDAY, AND SATURDAY POTASSIUM 2020-11- No [id number] 10meq TAKE 1 [facility] CHLORIDE 10 2-08 10-05 TABLET BY it y of mEq CR 00:00: 00:00 MOUTH [place] tablet 00 :00 EVERY Medical SATURDAY, Branch SATURDAY, AND SATURDAY POTASSIUM 2020-11- No [id number] 10meq TAKE 1 [facility] CHLORIDE 10 12-12 10-05 TABLET BY it y of mEq CR 00:00: 00:00 MOUTH [place] tablet 00 :00 EVERY Medical SATURDAY, Branch SATURDAY, AND SATURDAY Miscellaneo 2020-11 Yes [id number] J40: Un [employer] 0-21 [place] [facility] of Supply Kit 00:00: - Dispense [place] 00 # 1 [facility] Pra[facility] Respironic s (okay for alternativ e brand) for nebulizer treatment ipratropium 2020-11 Yes [id number] .5mg Inhale 2.5 [facility] 0.02 % 0-21 mL every 4 [facility]y of nebulizer 00:00: (four) [place] solution 00 hours as Medical needed for Branch Wheezing or Shortness of Breath. albuterol 2020-11 Yes [id number] 2.5mg Inhale 3 [facility] 2.5 mg /3 0-21 mL every 4 ity of mL (0.083 00:00: (four) [place] %) 00 hours as Medical nebulizer needed for Bran ch solution Wheezing or Shortness of Breath. Miscellaneo 2020-11 Yes [id number] J40: Un [employer] 0-21 [place] [facility] of Supply Kit 00:00: - Dispense [place] 00 # 1 [facility] Respironic s (okay for alternativ e brand) for nebulizer treatment ipratropium 2020-11 Yes [id number] .5mg Inhale 2.5 [facility] 0.02 % 0-21 mL every 4 ity of nebulizer 00:00: (four) [place] solution 00 hours as Medical needed for Branch Wheezing or Shortness of Breath. albuterol 2020-11 Yes [id number] 2.5mg Inhale 3 [facility] 2.5 mg /3 0-21 mL every 4 ity of mL (0.083 00:00: (four) [place] %) 00 hours as Medical nebulizer needed for Bran ch solution Wheezing or Shortness of Breath. Miscellaneo 2020-11 Yes [id number] J40: Un [employer] 0-21 [place] [facility] of Supply Kit 00:00: - Dispense [place] 00 # 1 [facility] Respironic s (okay for alternativ e brand) for nebulizer treatment ipratropium 2020-11 Yes [id number] .5mg Inhale 2.5 [facility] 0.02 % 0-21 mL every 4 ity of nebulizer 00:00: (four) [place] solution 00 hours as Medical needed for Branch Wheezing or Shortness of Breath. albuterol 2020-11 Yes [id number] 2.5mg Inhale 3 [facility] 2.5 mg /3 0-21 mL every 4 ity of mL (0.083 00:00: (four) [place] %) 00 hours as Medical nebulizer needed for Bran ch solution Wheezing or Shortness of Breath. Miscellaneo 2020-11 Yes [id number] J40: Un [employer] 0-21 [place] [facility] of Supply Kit 00:00: - Dispense [place] 00 # 1 [facility] Respironic s (okay for alternativ e brand) for nebulizer treatment ipratropium 2020-11 Yes [id number] .5mg Inhale 2.5 [facility] 0.02 % 0-21 mL every 4 ity of nebulizer 00:00: (four) [place] solution 00 hours as Medical needed for Branch Wheezing or Shortness of Breath. albuterol 2020-11 Yes [id number] 2.5mg Inhale 3 [facility] 2.5 mg /3 0-21 mL every 4 ity of mL (0.083 00:00: (four) [place] %) 00 hours as Medical nebulizer needed for Bran ch solution Wheezing or Shortness of Breath. Miscellaneo 2020-11 Yes [id number] J40: Un [employer] 0-21 [place] [facility] of Supply Kit 00:00: - Dispense [place] 00 # 1 [facility] Respironic s (okay for alternativ e brand) for nebulizer treatment ipratropium 2020-11 Yes [id number] .5mg Inhale 2.5 [facility] 0.02 % 0-21 mL every 4 ity of nebulizer 00:00: (four) [place] solution 00 hours as Medical needed for Branch Wheezing or Shortness of Breath. albuterol 2020-11 Yes [id number] 2.5mg Inhale 3 [facility] 2.5 mg /3 0-21 mL every 4 ity of mL (0.083 00:00: (four) [place] %) 00 hours as Medical nebulizer needed for Bran ch solution Wheezing or Shortness of Breath. Miscellaneo 2020-11 Yes [id number] J40: Un [employer] 0-21 [place] [facility] of Supply Kit 00:00: - Dispense [place] 00 # 1 [facility] Pra[facility] Respironic s (okay for alternativ e brand) for nebulizer treatment ipratropium 2020-11 Yes [id number] .5mg Inhale 2.5 [facility] 0.02 % 0-21 mL every 4 ity of nebulizer 00:00: (four) [place] solution 00 hours as Medical needed for Branch Wheezing or Shortness of Breath. albuterol 2020-11 Yes [id number] 2.5mg Inhale 3 [facility] 2.5 mg /3 0-21 mL every 4 ity of mL (0.083 00:00: (four) [place] %) 00 hours as Medical nebulizer needed for Bran ch solution Wheezing or Shortness of Breath. Miscellaneo 2020-11 Yes [id number] J40: Un [employer] 0-21 [place] ity of Supply Kit 00:00: - Dispense [place] 00 # 1 [facility] Pra[facility] Respironic s (okay for alternativ e brand) for nebulizer treatment ipratropium 2020-11 Yes [id number] .5mg Inhale 2.5 [facility] 0.02 % 0-21 mL every 4 ity of nebulizer 00:00: (four) [place] solution 00 hours as Medical needed for Branch Wheezing or Shortness of Breath. albuterol 2020-11 Yes [id number] 2.5mg Inhale 3 [facility] 2.5 mg /3 0-21 mL every 4 ity of mL (0.083 00:00: (four) [place] %) 00 hours as Medical nebulizer needed for Bran ch solution Wheezing or Shortness of Breath. Miscellaneo 2020-11 Yes [id number] J40: Un [employer] 0-21 [place] it[facility] of Supply Kit 00:00: - Dispense [place] 00 # 1 [facility] Respironic s (okay for alternativ e brand) for nebulizer treatment ipratropium 2020-11 Yes [id number] .5mg Inhale 2.5 [facility] 0.02 % 0-21 mL every 4 ity of nebulizer 00:00: (four) [place] solution 00 hours as Medical needed for Branch Wheezing or Shortness of Breath. albuterol 2020-11 Yes [id number] 2.5mg Inhale 3 [facility] 2.5 mg /3 0-21 mL every 4 ity of mL (0.083 00:00: (four) [place] %) 00 hours as Medical nebulizer needed for Bran ch solution Wheezing or Shortness of Breath. Miscellaneo 2020-11 Yes [id number] J40: Un [employer] 0-21 [place] [facility] of Supply Kit 00:00: - Dispense [place] 00 # 1 [facility] Respironic s (okay for alternativ e brand) for nebulizer treatment ipratropium 2020-11 Yes [id number] .5mg Inhale 2.5 [facility] 0.02 % 0-21 mL every 4 ity of nebulizer 00:00: (four) [place] solution 00 hours as Medical needed for Branch Wheezing or Shortness of Breath. albuterol 2020-11 Yes [id number] 2.5mg Inhale 3 [facility] 2.5 mg /3 0-21 mL every 4 ity of mL (0.083 00:00: (four) [place] %) 00 hours as Medical nebulizer needed for Bran ch solution Wheezing or Shortness of Breath. Miscellaneo 2020-11 Yes [id number] J40: Un [employer] 0-21 [place] [facility] of Supply Kit 00:00: - Dispense [place] 00 # 1 [facility] Respironic s (okay for alternativ e brand) for nebulizer treatment ipratropium 2020-11 Yes [id number] .5mg Inhale 2.5 [facility] 0.02 % 0-21 mL every 4 ity of nebulizer 00:00: (four) [place] solution 00 hours as Medical needed for Branch Wheezing or Shortness of Breath. albuterol 2020-11 Yes [id number] 2.5mg Inhale 3 [facility] 2.5 mg /3 0-21 mL every 4 ity of mL (0.083 00:00: (four) [place] %) 00 hours as Medical nebulizer needed for Bran ch solution Wheezing or Shortness of Breath. Miscellaneo 2020-11 Yes [id number] J40: Un [employer] 0-21 [place] [facility] of Supply Kit 00:00: - Dispense [place] 00 # 1 [facility] Respironic s (okay for alternativ e brand) for nebulizer treatment ipratropium 2020-11 Yes [id number] .5mg Inhale 2.5 [facility] 0.02 % 0-21 mL every 4 ity of nebulizer 00:00: (four) [place] solution 00 hours as Medical needed for Branch Wheezing or Shortness of Breath. albuterol 2020-11 Yes [id number] 2.5mg Inhale 3 [facility] 2.5 mg /3 0-21 mL every 4 ity of mL (0.083 00:00: (four) [place] %) 00 hours as Medical nebulizer needed for Bran ch solution Wheezing or Shortness of Breath. Miscellaneo 2020-11 Yes [id number] J40: Un [employer] 0-21 [place] [facility] of Supply Kit 00:00: - Dispense [place] 00 # 1 [facility] Respironic s (okay for alternativ e brand) for nebulizer treatment ipratropium 2020-11 Yes [id number] .5mg Inhale 2.5 [facility] 0.02 % 0-21 mL every 4 ity of nebulizer 00:00: (four) [place] solution 00 hours as Medical needed for Branch Wheezing or Shortness of Breath. albuterol 2020-11 Yes [id number] 2.5mg Inhale 3 [facility] 2.5 mg /3 0-21 mL every 4 ity of mL (0.083 00:00: (four) [place] %) 00 hours as Medical nebulizer needed for Bran ch solution Wheezing or Shortness of Breath. Miscellaneo 2020-11 Yes [id number] J40: Un [employer] 0-21 [place] it[facility] of Supply Kit 00:00: - Dispense [place] 00 # 1 [facility] Respironic s (okay for alternativ e brand) for nebulizer treatment ipratropium 2020-11 Yes [id number] .5mg Inhale 2.5 [facility] 0.02 % 0-21 mL every 4 ity of nebulizer 00:00: (four) [place] solution 00 hours as Medical needed for Branch Wheezing or Shortness of Breath. albuterol 2020-11 Yes [id number] 2.5mg Inhale 3 [facility] 2.5 mg /3 0-21 mL every 4 ity of mL (0.083 00:00: (four) [place] %) 00 hours as Medical nebulizer needed for Bran ch solution Wheezing or Shortness of Breath. Miscellaneo 2020-11 Yes [id number] J40: Un [employer] 0-21 [place] it[facility] of Supply Kit 00:00: - Dispense [place] 00 # 1 [facility] Respironic s (okay for alternativ e brand) for nebulizer treatment ipratropium 2020-11 Yes [id number] .5mg Inhale 2.5 [facility] 0.02 % 0-21 mL every 4 ity of nebulizer 00:00: (four) [place] solution 00 hours as Medical needed for Branch Wheezing or Shortness of Breath. albuterol 2020-11 Yes [id number] 2.5mg Inhale 3 [facility] 2.5 mg /3 0-21 mL every 4 ity of mL (0.083 00:00: (four) [place] %) 00 hours as Medical nebulizer needed for Bran ch solution Wheezing or Shortness of Breath. Miscellaneo 2020-11 Yes [id number] J40: Un [employer] 0-21 [place] ity of Supply Kit 00:00: - Dispense [place] 00 # 1 [facility] Respironic s (okay for alternativ e brand) for nebulizer treatment ipratropium 2020-11 Yes [id number] .5mg Inhale 2.5 [facility] 0.02 % 0-21 mL every 4 ity of nebulizer 00:00: (four) [place] solution 00 hours as Medical needed for Branch Wheezing or Shortness of Breath. albuterol 2020-11 Yes [id number] 2.5mg Inhale 3 [facility] 2.5 mg /3 0-21 mL every 4 ity of mL (0.083 00:00: (four) [place] %) 00 hours as Medical nebulizer needed for Bran ch solution Wheezing or Shortness of Breath. Miscellaneo 2020-11 Yes [id number] J40: Un [employer] 0-21 [place] it[facility] of Supply Kit 00:00: - Dispense [place] 00 # 1 [facility] Pra[facility] Respironic s (okay for alternativ e brand) for nebulizer treatment ipratropium 2020-11 Yes [id number] .5mg Inhale 2.5 [facility] 0.02 % 0-21 mL every 4 ity of nebulizer 00:00: (four) [place] solution 00 hours as Medical needed for Branch Wheezing or Shortness of Breath. albuterol 2020-11 Yes [id number] 2.5mg Inhale 3 [facility] 2.5 mg /3 0-21 mL every 4 ity of mL (0.083 00:00: (four) [place] %) 00 hours as Medical nebulizer needed for Bran ch solution Wheezing or Shortness of Breath. Miscellaneo 2020-11 Yes [id number] J40: Un [employer] 0-21 [place] ity of Supply Kit 00:00: - Dispense [place] 00 # 1 [facility] Pra[facility] Respironic s (okay for alternativ e brand) for nebulizer treatment ipratropium 2020-11 Yes [id number] .5mg Inhale 2.5 [facility] 0.02 % 0-21 mL every 4 ity of nebulizer 00:00: (four) [place] solution 00 hours as Medical needed for Branch Wheezing or Shortness of Breath. albuterol 2020-11 Yes [id number] 2.5mg Inhale 3 [facility] 2.5 mg /3 0-21 mL every 4 ity of mL (0.083 00:00: (four) [place] %) 00 hours as Medical nebulizer needed for Bran ch solution Wheezing or Shortness of Breath. Miscellaneo 2020-11 Yes [id number] J40: Un [employer] 0-21 [place] it[facility] of Supply Kit 00:00: - Dispense [place] 00 # 1 [facility] Respironic s (okay for alternativ e brand) for nebulizer treatment ipratropium 2020-11 Yes [id number] .5mg Inhale 2.5 [facility] 0.02 % 0-21 mL every 4 ity of nebulizer 00:00: (four) [place] solution 00 hours as Medical needed for Branch Wheezing or Shortness of Breath. albuterol 2020-11 Yes [id number] 2.5mg Inhale 3 [facility] 2.5 mg /3 0-21 mL every 4 ity of mL (0.083 00:00: (four) [place] %) 00 hours as Medical nebulizer needed for Bran ch solution Wheezing or Shortness of Breath. Miscellaneo 2020-11 Yes [id number] J40: Un [employer] 0-21 [place] ity of Supply Kit 00:00: - Dispense [place] 00 # 1 [facility] Respironic s (okay for alternativ e brand) for nebulizer treatment ipratropium 2020-11 Yes [id number] .5mg Inhale 2.5 [facility] 0.02 % 0-21 mL every 4 ity of nebulizer 00:00: (four) [place] solution 00 hours as Medical needed for Branch Wheezing or Shortness of Breath. albuterol 2020-11 Yes [id number] 2.5mg Inhale 3 [facility] 2.5 mg /3 0-21 mL every 4 ity of mL (0.083 00:00: (four) [place] %) 00 hours as Medical nebulizer needed for Bran ch solution Wheezing or Shortness of Breath. Miscellaneo 2020-11 Yes [id number] J40: Un [employer] 0-21 [place] ity of Supply Kit 00:00: - Dispense [place] 00 # 1 [facility] Respironic s (okay for alternativ e brand) for nebulizer treatment ipratropium 2020-11 Yes [id number] .5mg Inhale 2.5 [facility] 0.02 % 0-21 mL every 4 ity of nebulizer 00:00: (four) [place] solution 00 hours as Medical needed for Branch Wheezing or Shortness of Breath. albuterol 2020-11 Yes [id number] 2.5mg Inhale 3 [facility] 2.5 mg /3 0-21 mL every 4 ity of mL (0.083 00:00: (four) [place] %) 00 hours as Medical nebulizer needed for Bran ch solution Wheezing or Shortness of Breath. Miscellaneo 2020-11 Yes [id number] J40: Un [employer] 0-21 [place] ity of Supply Kit 00:00: - Dispense [place] 00 # 1 [facility] Respironic s (okay for alternativ e brand) for nebulizer treatment ipratropium 2020-11 Yes [id number] .5mg Inhale 2.5 [facility] 0.02 % 0-21 mL every 4 ity of nebulizer 00:00: (four) [place] solution 00 hours as Medical needed for Branch Wheezing or Shortness of Breath. albuterol 2020-11 Yes [id number] 2.5mg Inhale 3 [facility] 2.5 mg /3 0-21 mL every 4 ity of mL (0.083 00:00: (four) [place] %) 00 hours as Medical nebulizer needed for Bran ch solution Wheezing or Shortness of Breath. Miscellaneo 2020-11 Yes [id number] J40: Un [employer] 0-21 [place] ity of Supply Kit 00:00: - Dispense [place] 00 # 1 [facility] Respironic s (okay for alternativ e brand) for nebulizer treatment ipratropium 2020-11 Yes [id number] .5mg Inhale 2.5 [facility] 0.02 % 0-21 mL every 4 ity of nebulizer 00:00: (four) [place] solution 00 hours as Medical needed for Branch Wheezing or Shortness of Breath. albuterol 2020-11 Yes [id number] 2.5mg Inhale 3 [facility] 2.5 mg /3 0-21 mL every 4 ity of mL (0.083 00:00: (four) [place] %) 00 hours as Medical nebulizer needed for Bran ch solution Wheezing or Shortness of Breath. Miscellaneo 2020-11 Yes [id number] J40: Un [employer] 0-21 [place] ity of Supply Kit 00:00: - Dispense [place] 00 # 1 [facility] Respironic s (okay for alternativ e brand) for nebulizer treatment ipratropium 2020-11 Yes [id number] .5mg Inhale 2.5 [facility] 0.02 % 0-21 mL every 4 ity of nebulizer 00:00: (four) [place] solution 00 hours as Medical needed for Branch Wheezing or Shortness of Breath. albuterol 2020-11 Yes [id number] 2.5mg Inhale 3 [facility] 2.5 mg /3 0-21 mL every 4 ity of mL (0.083 00:00: (four) [place] %) 00 hours as Medical nebulizer needed for Bran ch solution Wheezing or Shortness of Breath. Miscellaneo 2020-11 Yes [id number] J40: Un [employer] 0-21 [place] ity of Supply Kit 00:00: - Dispense [place] 00 # 1 [facility] Respironic s (okay for alternativ e brand) for nebulizer treatment ipratropium 2020-11 Yes [id number] .5mg Inhale 2.5 [facility] 0.02 % 0-21 mL every 4 ity of nebulizer 00:00: (four) [place] solution 00 hours as Medical needed for Branch Wheezing or Shortness of Breath. albuterol 2020-11 Yes [id number] 2.5mg Inhale 3 [facility] 2.5 mg /3 0-21 mL every 4 ity of mL (0.083 00:00: (four) [place] %) 00 hours as Medical nebulizer needed for Bran ch solution Wheezing or Shortness of Breath. Miscellaneo 2020-11 Yes [id number] J40: Un [employer] 0-21 [place] ity of Supply Kit 00:00: - Dispense [place] 00 # 1 [facility] Respironic s (okay for alternativ e brand) for nebulizer treatment ipratropium 2020-11 Yes [id number] .5mg Inhale 2.5 [facility] 0.02 % 0-21 mL every 4 ity of nebulizer 00:00: (four) [place] solution 00 hours as Medical needed for Branch Wheezing or Shortness of Breath. albuterol 2020-11 Yes [id number] 2.5mg Inhale 3 [facility] 2.5 mg /3 0-21 mL every 4 ity of mL (0.083 00:00: (four) [place] %) 00 hours as Medical nebulizer needed for Bran ch solution Wheezing or Shortness of Breath. Miscellaneo 2020-11 Yes [id number] J40: Un [employer] 0-21 [place] ity of Supply Kit 00:00: - Dispense [place] 00 # 1 [facility] Respironic s (okay for alternativ e brand) for nebulizer treatment ipratropium 2020-11 Yes [id number] .5mg Inhale 2.5 [facility] 0.02 % 0-21 mL every 4 ity of nebulizer 00:00: (four) [place] solution 00 hours as Medical needed for Branch Wheezing or Shortness of Breath. albuterol 2020-11 Yes [id number] 2.5mg Inhale 3 [facility] 2.5 mg /3 0-21 mL every 4 ity of mL (0.083 00:00: (four) [place] %) 00 hours as Medical nebulizer needed for Bran ch solution Wheezing or Shortness of Breath. Miscellaneo 2020-11 Yes [id number] J40: Un [employer] 0-21 [place] ity of Supply Kit 00:00: - Dispense [place] 00 # 1 [facility] Respironic s (okay for alternativ e brand) for nebulizer treatment ipratropium 2020-11 Yes [id number] .5mg Inhale 2.5 [facility] 0.02 % 0-21 mL every 4 ity of nebulizer 00:00: (four) [place] solution 00 hours as Medical needed for Branch Wheezing or Shortness of Breath. albuterol 2020-11 Yes [id number] 2.5mg Inhale 3 [facility] 2.5 mg /3 0-21 mL every 4 ity of mL (0.083 00:00: (four) [place] %) 00 hours as Medical nebulizer needed for Bran ch solution Wheezing or Shortness of Breath. Miscellaneo 2020-11 Yes [id number] J40: Un [employer] 0-21 [place] ity of Supply Kit 00:00: - Dispense [place] 00 # 1 [facility] Respironic s (okay for alternativ e brand) for nebulizer treatment ipratropium 2020-11 Yes [id number] .5mg Inhale 2.5 [facility] 0.02 % 0-21 mL every 4 ity of nebulizer 00:00: (four) [place] solution 00 hours as Medical needed for Branch Wheezing or Shortness of Breath. albuterol 2020-11 Yes [id number] 2.5mg Inhale 3 [facility] 2.5 mg /3 0-21 mL every 4 ity of mL (0.083 00:00: (four) [place] %) 00 hours as Medical nebulizer needed for Bran ch solution Wheezing or Shortness of Breath. Miscellaneo 2020-11 Yes [id number] J40: Un [employer] 0-21 Bro[place] ity of Supply Kit 00:00: - [place] 00 # 1 [facility] Respironic s (okay for alternativ e brand) for nebulizer treatment ipratropium 2020-11 Yes [id number] .5mg Inhale 2.5 [facility] 0.02 % 0-21 mL every 4 ity of nebulizer 00:00: (four) [place] solution 00 hours as Medical needed for Branch Wheezing or Shortness of Breath. albuterol 2020-11 Yes [id number] 2.5mg Inhale 3 [facility] 2.5 mg /3 0-21 mL every 4 ity of mL (0.083 00:00: (four) [place] %) 00 hours as Medical nebulizer needed for Bran ch solution Wheezing or Shortness of Breath. Miscellaneo 2020-11 Yes [id number] J40: Un [employer] 0-21 Brochitis ity of Supply Kit 00:00: - [place] 00 # 1 [facility] Respironic s (okay for alternativ e brand) for nebulizer treatment ipratropium 2020-11 Yes [id number] .5mg Inhale 2.5 [facility] 0.02 % 0-21 mL every 4 ity of nebulizer 00:00: (four) [place] solution 00 hours as Medical needed for Branch Wheezing or Shortness of Breath. albuterol 2020-11 Yes [id number] 2.5mg Inhale 3 [facility] 2.5 mg /3 0-21 mL every 4 ity of mL (0.083 00:00: (four) [place] %) 00 hours as Medical nebulizer needed for Bran ch solution Wheezing or Shortness of Breath. Miscellaneo 2020-11 Yes [id number] J40: Un [employer] 0-21 Brochitis ity of Supply Kit 00:00: - [place] 00 # 1 [facility] Respironic s (okay for alternativ e brand) for nebulizer treatment ipratropium 2020-11 Yes [id number] .[id number] Inhale 2.5 [facility] 0.02 % 0-21 mL every 4 ity of nebulizer 00:00: (four) [place] solution 00 hours as Medical needed for Branch Wheezing or Shortness of Breath. albuterol 2020-11 Yes [id number] 2.5mg Inhale 3 [facility] 2.5 mg /3 0-21 mL every 4 ity of mL (0.083 00:00: (four) [place] %) 00 hours as Medical nebulizer needed for Bran ch solution Wheezing or Shortness of Breath. Miscellaneo 2020-11 Yes [id number] J40: Un [employer] 0-21 Brochitis ity of Supply Kit 00:00: - [place] 00 # 1 [facility] Respironic s (okay for alternativ e brand) for nebulizer treatment ipratropium 2020-11 Yes [id number] .5mg Inhale 2.5 [facility] 0.02 % 0-21 mL every 4 ity of nebulizer 00:00: (four) [place] solution 00 hours as Medical needed for Branch Wheezing or Shortness of Breath. albuterol 2020-11 Yes [id number] 2.5mg Inhale 3 [facility] 2.5 mg /3 0-21 mL every 4 ity of mL (0.083 00:00: (four) [place] %) 00 hours as Medical nebulizer needed for Bran ch solution Wheezing or Shortness of Breath. Miscellaneo 2020-11 Yes [id number] J40: [facility] 0-21 Brochitis ity of Supply Kit 00:00: - [place] 00 # 1 [facility] Respironic s (okay for alternativ e brand) for nebulizer treatment ipratropium 2020-11 Yes [id number] .5mg Inhale 2.5 [facility] 0.02 % 0-21 mL every 4 ity of nebulizer 00:00: (four) [place] solution 00 hours as Medical needed for Branch Wheezing or Shortness of Breath. albuterol 2020-11 Yes [id number] 2.5mg Inhale 3 [facility] 2.5 mg /3 0-21 mL every 4 ity of mL (0.083 00:00: (four) [place] %) 00 hours as Medical nebulizer needed for Bran ch solution Wheezing or Shortness of Breath. Miscellaneo 2020-11 Yes [id number] J40: Un [employer] 0-21 Brochitis ity of Supply Kit 00:00: - [place]ense [place] 00 # 1 [facility] Respironic s (okay for alternativ e brand) for nebulizer treatment ipratropium 2020-11 Yes [id number] .5mg Inhale 2.5 [facility] 0.02 % 0-21 mL every 4 ity of nebulizer 00:00: (four) [place] solution 00 hours as Medical needed for Branch Wheezing or Shortness of Breath. albuterol 2020-11 Yes [id number] 2.5mg Inhale 3 [facility] 2.5 mg /3 0-21 mL every 4 ity of mL (0.083 00:00: (four) [place] %) 00 hours as Medical nebulizer needed for Bran ch solution Wheezing or Shortness of Breath. Miscellaneo 2020-11 Yes [id number] J40: Un [employer] 0-21 Brochitis ity of Supply Kit 00:00: - Dis[place]ense [place] 00 # 1 [facility] Respironic s (okay for alternativ e brand) for nebulizer treatment ipratropium 2020-11 Yes [id number] .5mg Inhale 2.5 [facility] 0.02 % 0-21 mL every 4 ity of nebulizer 00:00: (four) [place] solution 00 hours as Medical needed for Branch Wheezing or Shortness of Breath. albuterol 2020-11 Yes [id number] 2.5mg Inhale 3 [facility] 2.5 mg /3 0-21 mL every 4 ity of mL (0.083 00:00: (four) [place] %) 00 hours as Medical nebulizer needed for Bran ch solution Wheezing or Shortness of Breath. Miscellaneo 2020-11 Yes [id number] J40: Un [employer] 0-21 Bro[facility]itis ity of Supply Kit 00:00: - Dis[place]ense [place] 00 # 1 [facility] Respironic s (okay for alternativ e brand) for nebulizer treatment ipratropium 2020-11 Yes [id number] .5mg Inhale 2.5 [facility] 0.02 % 0-21 mL every 4 ity of nebulizer 00:00: (four) [place] solution 00 hours as Medical needed for Branch Wheezing or Shortness of Breath. albuterol 2020-11 Yes [id number] 2.5mg Inhale 3 [facility] 2.5 mg /3 0-21 mL every 4 ity of mL (0.083 00:00: (four) [place] %) 00 hours as Medical nebulizer needed for Bran ch solution Wheezing or Shortness of Breath. Miscellaneo 2020-11 Yes [id number] J40: Un [employer] 0-21 Brochitis ity of Supply Kit 00:00: - Dispense [place] 00 # 1 [facility] Respironic s (okay for alternativ e brand) for nebulizer treatment ipratropium 2020-11 Yes [id number] .5mg Inhale 2.5 [facility] 0.02 % 0-21 mL every 4 ity of nebulizer 00:00: (four) [place] solution 00 hours as Medical needed for Branch Wheezing or Shortness of Breath. Miscellaneo 2020-11 Yes [id number] J40: Un [employer] 0-21 Brochitis ity of Supply Kit 00:00: - Dispense [place] 00 # 1 [facility] Respironic s (okay for alternativ e brand) for nebulizer treatment ipratropium 2020-11 Yes [id number] .5mg Inhale 2.5 [facility] 0.02 % 0-21 mL every 4 ity of nebulizer 00:00: (four) [place] solution 00 hours as Medical needed for Branch Wheezing or Shortness of Breath. Miscellaneo 2020-11 Yes [id number] J40: Un [employer] 0-21 Bro[facility]itis ity of Supply Kit 00:00: - Dispense [place] 00 # 1 [facility] Respironic s (okay for alternativ e brand) for nebulizer treatment ipratropium 2020-11 Yes [id number] .5mg Inhale 2.5 [facility] 0.02 % 0-21 mL every 4 ity of nebulizer 00:00: (four) [place] solution 00 hours as Medical needed for Branch Wheezing or Shortness of Breath. Miscellaneo 2020-11 Yes [id number] J40: Un [employer] 0-21 Bro[place]itis ity of Supply Kit 00:00: - Dispense [place] 00 # 1 [facility] Respironic s (okay for alternativ e brand) for nebulizer treatment ipratropium 2020-11 Yes [id number] .5mg Inhale 2.5 [facility] 0.02 % 0-21 mL every 4 ity of nebulizer 00:00: (four) [place] solution 00 hours as Medical needed for Branch Wheezing or Shortness of Breath. Miscellaneo 2020-11 Yes [id number] J40: Un [facility] 0-21 Brochitis ity of Supply Kit 00:00: - Dispense [place] 00 # 1 [facility] Respironic s (okay for alternativ e brand) for nebulizer treatment ipratropium 2020-11 Yes [id number] .5mg Inhale 2.5 [facility] 0.02 % 0-21 mL every 4 ity of nebulizer 00:00: (four) [place] solution 00 hours as Medical needed for Branch Wheezing or Shortness of Breath. albuterol 2020-113- No [id number] 2.5mg Inhale 3 [facility] 2.5 mg /3 0-21 03-01 mL every 4 ity of mL (0.083 00:00: 00:00 (four) [place] %) 00 :00 hours as Medical nebulizer needed for Bran ch solution Wheezing or Shortness of Breath. aspirin Yes [id number] 81mg Take 1 U nivers (ADULT LOW 4-20 02 tablet by ity of DOSE 00:00: mouth [place] ASPIRIN) 81 00 daily. Medica l mg EC Branch tablet aspirin Yes [id number] 81mg Take 1 U nivers (ADULT LOW 4-20 02 tablet by ity of DOSE 00:00: mouth [place] ASPIRIN) 81 00 daily. Medica l mg EC Branch tablet aspirin Yes [id number] 81mg Take 1 U nivers (ADULT LOW 4-20 02 tablet by ity of DOSE 00:00: mouth [place] ASPIRIN) 81 00 daily. Medica l mg EC Branch tablet aspirin Yes [id number] 81mg Take 1 U nivers (ADULT LOW 4-20 02 tablet by ity of DOSE 00:00: mouth [place] ASPIRIN) 81 00 daily. Medica l mg EC Branch tablet aspirin Yes [id number] 81mg Take 1 U nivers (ADULT LOW 4-20 02 tablet by ity of DOSE 00:00: mouth [place] ASPIRIN) 81 00 daily. Medica l mg EC Branch tablet aspirin 2020-0 Yes [id number] 81mg Take 1 U nivers (ADULT LOW 4-20 02 tablet by ity of DOSE 00:00: mouth [place] ASPIRIN) 81 00 daily. Medica l mg EC Branch tablet aspirin 2020-0 Yes [id number] 81mg Take 1 U nivers (ADULT LOW 4-20 02 tablet by ity of DOSE 00:00: mouth [place] ASPIRIN) 81 00 daily. Medica l mg EC Branch tablet aspirin 2020-0 Yes [id number] 81mg Take 1 U nivers (ADULT LOW 4-20 02 tablet by ity of DOSE 00:00: mouth [place] ASPIRIN) 81 00 daily. Medica l mg EC Branch tablet aspirin 2020-0 Yes [id number] 81mg Take 1 U nivers (ADULT LOW 4-20 02 tablet by ity of DOSE 00:00: mouth [place] ASPIRIN) 81 00 daily. Medica l mg EC Branch tablet aspirin 2020-0 Yes [id number] 81mg Take 1 U nivers (ADULT LOW 4-20 02 tablet by ity of DOSE 00:00: mouth [place] ASPIRIN) 81 00 daily. Medica l mg EC Branch tablet aspirin 2020-0 Yes [id number] 81mg Take 1 U nivers (ADULT LOW 4-20 02 tablet by ity of DOSE 00:00: mouth [place] ASPIRIN) 81 00 daily. Medica l mg EC Branch tablet aspirin 2020-0 Yes [id number] 81mg Take 1 U nivers (ADULT LOW 4-20 02 tablet by ity of DOSE 00:00: mouth [place] ASPIRIN) 81 00 daily. Medica l mg EC Branch tablet aspirin 2020-0 Yes [id number] 81mg Take 1 U nivers (ADULT LOW 4-20 02 tablet by ity of DOSE 00:00: mouth [place] ASPIRIN) 81 00 daily. Medica l mg EC Branch tablet aspirin 2020-0 Yes [id number] 81mg Take 1 U nivers (ADULT LOW 4-20 02 tablet by ity of DOSE 00:00: mouth [place] ASPIRIN) 81 00 daily. Medica l mg EC Branch tablet aspirin 2020-0 Yes [id number] 81mg Take 1 U nivers (ADULT LOW 4-20 02 tablet by ity of DOSE 00:00: mouth [place] ASPIRIN) 81 00 daily. Medica l mg EC Branch tablet aspirin 2020-0 Yes [id number] 81mg Take 1 U nivers (ADULT LOW 4-20 02 tablet by ity of DOSE 00:00: mouth [place] ASPIRIN) 81 00 daily. Medica l mg EC Branch tablet aspirin 2020-0 Yes [id number] 81mg Take 1 U nivers (ADULT LOW 4-20 02 tablet by ity of DOSE 00:00: mouth [place] ASPIRIN) 81 00 daily. Medica l mg EC Branch tablet aspirin 2020-0 Yes [id number] 81mg Take 1 U nivers (ADULT LOW 4-20 02 tablet by ity of DOSE 00:00: mouth [place] ASPIRIN) 81 00 daily. Medica l mg EC Branch tablet aspirin 2020-0 Yes [id number] 81mg Take 1 U nivers (ADULT LOW 4-20 02 tablet by ity of DOSE 00:00: mouth [place] ASPIRIN) 81 00 daily. Medica l mg EC Branch tablet aspirin 2020-0 Yes [id number] 81mg Take 1 U nivers (ADULT LOW 4-20 02 tablet by ity of DOSE 00:00: mouth [place] ASPIRIN) 81 00 daily. Medica l mg EC Branch tablet aspirin 2020-0 Yes [id number] 81mg Take 1 U nivers (ADULT LOW 4-20 02 tablet by ity of DOSE 00:00: mouth [place] ASPIRIN) 81 00 daily. Medica l mg EC Branch tablet aspirin 2020-0 Yes [id number] 81mg Take 1 U nivers (ADULT LOW 4-20 02 tablet by ity of DOSE 00:00: mouth [place] ASPIRIN) 81 00 daily. Medica l mg EC Branch tablet aspirin 2020-0 Yes [id number] 81mg Take 1 U nivers (ADULT LOW 4-20 02 tablet by ity of DOSE 00:00: mouth [place] ASPIRIN) 81 00 daily. Medica l mg EC Branch tablet aspirin 2020-0 Yes [id number] 81mg Take 1 U nivers (ADULT LOW 4-20 02 tablet by ity of DOSE 00:00: mouth [place] ASPIRIN) 81 00 daily. Medica l mg EC Branch tablet aspirin 2020-0 Yes [id number] 81mg Take 1 U nivers (ADULT LOW 4-20 02 tablet by ity of DOSE 00:00: mouth [place] ASPIRIN) 81 00 daily. Medica l mg EC Branch tablet aspirin 2020-0 Yes [id number] 81mg Take 1 U nivers (ADULT LOW 4-20 02 tablet by ity of DOSE 00:00: mouth [place] ASPIRIN) 81 00 daily. Medica l mg EC Branch tablet aspirin 2020-0 Yes [id number] 81mg Take 1 U nivers (ADULT LOW 4-20 02 tablet by ity of DOSE 00:00: mouth [place] ASPIRIN) 81 00 daily. Medica l mg [facility] Branch tablet aspirin 2020-0 Yes [id number] 81mg Take 1 U nivers (ADULT LOW 4-20 02 tablet by ity of DOSE 00:00: mouth [place] ASPIRIN) 81 00 daily. Medica l mg EC Branch tablet aspirin 2020-0 Yes [id number] 81mg Take 1 U nivers (ADULT LOW 4-20 02 tablet by ity of DOSE 00:00: mouth [place] ASPIRIN) 81 00 daily. Medica l mg EC Branch tablet aspirin 2020-0 Yes [id number] 81mg Take 1 U nivers (ADULT LOW 4-20 02 tablet by ity of DOSE 00:00: mouth [place] ASPIRIN) 81 00 daily. Medica l mg EC Branch tablet aspirin 2020-0 Yes [id number] 81mg Take 1 U nivers (ADULT LOW 4-20 02 tablet by ity of DOSE 00:00: mouth [place] ASPIRIN) 81 00 daily. Medica l mg EC Branch tablet aspirin 2020-0 Yes [id number] 81mg Take 1 U nivers (ADULT LOW 4-20 02 tablet by ity of DOSE 00:00: mouth [place] ASPIRIN) 81 00 daily. Medica l mg EC Branch tablet aspirin 2020-0 Yes [id number] 81mg Take 1 U nivers (ADULT LOW 4-20 02 tablet by ity of DOSE 00:00: mouth [place] ASPIRIN) 81 00 daily. Medica l mg EC Branch tablet aspirin 2020-0 Yes [id number] 81mg Take 1 U nivers (ADULT LOW 4-20 02 tablet by ity of DOSE 00:00: mouth [place] ASPIRIN) 81 00 daily. Medica l mg EC Branch tablet aspirin 2020-0 Yes [id number] 81mg Take 1 U nivers (ADULT LOW 4-20 02 tablet by ity of DOSE 00:00: mouth [place] ASPIRIN) 81 00 daily. Medica l mg EC Branch tablet aspirin 0 Yes [id number] 81mg Take 1 U nivers (ADULT LOW 4-20 02 tablet by ity of DOSE 00:00: mouth [place] ASPIRIN) 81 00 daily. Medica l mg EC Branch tablet aspirin 0 Yes [id number] 81mg Take 1 U nivers (ADULT LOW 4-20 02 tablet by ity of DOSE 00:00: mouth [place] ASPIRIN) 81 00 daily. Medica l mg EC Branch tablet aspirin 0 Yes [id number] 81mg Take 1 U nivers (ADULT LOW 4-20 02 tablet by ity of DOSE 00:00: mouth [place] ASPIRIN) 81 00 daily. Medica l mg EC Branch tablet aspirin 0 Yes [id number] 81mg Take 1 U nivers (ADULT LOW 4-20 02 tablet by ity of DOSE 00:00: mouth [place] ASPIRIN) 81 00 daily. Medica l mg EC Branch tablet aspirin Yes [id number] 81mg Take 1 U nivers (ADULT LOW 4-20 02 tablet by ity of DOSE 00:00: mouth [place] ASPIRIN) 81 00 daily. Medica l mg EC Branch tablet aspirin 0 Yes [id number] 81mg Take 1 U nivers (ADULT LOW 4-20 02 tablet by ity of DOSE 00:00: mouth [place] ASPIRIN) 81 00 daily. Medica l mg EC Branch tablet rosuvastati Yes [id number] 20mg Take 1 [facility] n 20 mg 1-27 tablet by ity of tablet 00:00: mouth [place] 00 daily. Medical Branch rosuvastati Yes [id number] 20mg Take 1 [facility] n 20 mg 1-27 tablet by ity of tablet 00:00: mouth [place] 00 daily. Medical Branch rosuvastati 0 Yes [id number] 20mg Take 1 Univers n 20 mg 1-27 tablet by ity of tablet 00:00: mouth [place] 00 daily. [facility] Branch rosuvastati Yes [id number] 20mg Take 1 Univers n 20 mg 1-27 tablet by ity of tablet 00:00: mouth [place] 00 daily. [facility] Branch rosuvastati Yes [id number] 20mg Take 1 Univers n 20 mg 1-27 tablet by ity of tablet 00:00: mouth [place] 00 daily. Medical Branch rosuvastati 2021- No [id number] 20mg Take 1 Univers n 20 mg 1-27 10-05 tablet by ity of tablet 00:00: 00:00 mouth [place] 00 :00 daily. Medical Branch rosuvastati 2021- No [id number] 20mg Take 1 Univers n 20 mg 1-27 10-05 tablet by ity of tablet 00:00: 00:00 mouth [place] 00 :00 daily. Medical Branch HYDROcodone Yes TK 1 T PO U nivers -acetaminop 8-06 TID ity of hen 7.5-325 00:00: [place] mg per 00 Medical tablet Branch HYDROcodone Yes TK 1 T PO U nivers -acetaminop 8-06 TID ity of hen 7.5-325 00:00: [place] mg per 00 Medical tablet Branch HYDROcodone Yes TK 1 T PO U nivers -acetaminop 8-06 TID ity of hen 7.5-325 00:00: [place] mg per 00 Medical tablet Branch HYDROcodone Yes TK 1 T PO U nivers -acetaminop 8-06 TID ity of hen 7.5-325 00:00: [place] mg per 00 Medical tablet Branch HYDROcodone 2018-0 Yes TK 1 T PO U nivers -acetaminop 8-06 TID ity of hen 7.5-325 00:00: [place] mg per 00 Medical tablet Branch HYDROcodone 2018-0 Yes TK 1 T PO U nivers -acetaminop 8-06 TID ity of hen 7.5-325 00:00: [place] mg per 00 Medical tablet Branch HYDROcodone 2018-0 Yes TK 1 T PO U nivers -acetaminop 8-06 TID ity of hen 7.5-325 00:00: [place] mg per 00 Medical tablet Branch HYDROcodone 2018-0 Yes TK 1 T PO U nivers -acetaminop 8-06 TID ity of hen 7.5-325 00:00: [place] mg per 00 Medical tablet Branch HYDROcodone 2018-0 Yes TK 1 T PO U nivers -acetaminop 8-06 TID ity of hen 7.5-325 00:00: [place] mg per 00 Medical tablet Branch HYDROcodone Yes TK 1 T PO U nivers -acetaminop 8-06 TID ity of hen 7.5-325 00:00: [place] mg per 00 Medical tablet Branch HYDROcodone Yes TK 1 T PO U nivers -acetaminop 8-06 TID ity of hen 7.5-325 00:00: [place] mg per 00 Medical tablet Branch HYDROcodone Yes TK 1 T PO U nivers -acetaminop 8-06 TID ity of hen 7.5-325 00:00: [place] mg per 00 Medical tablet Branch HYDROcodone Yes TK 1 T PO U nivers -acetaminop 8-06 TID ity of hen 7.5-325 00:00: [place] mg per 00 Medical tablet Branch HYDROcodone Yes TK 1 T PO U nivers -acetaminop 8-06 TID ity of hen 7.5-325 00:00: [place] mg per 00 Medical tablet Branch HYDROcodone Yes TK 1 T PO U nivers -acetaminop 8-06 TID ity of hen 7.5-325 00:00: [place] mg per 00 Medical tablet Branch HYDROcodone Yes TK 1 T PO U nivers -acetaminop 8-06 TID ity of hen 7.5-325 00:00: [place] mg per 00 Medical tablet Branch HYDROcodone Yes TK 1 T PO U nivers -acetaminop 8-06 TID ity of hen 7.5-325 00:00: [place] mg per 00 Medical tablet Branch HYDROcodone Yes TK 1 T PO U nivers -acetaminop 8-06 TID ity of hen 7.5-325 00:00: [place] mg per 00 Medical tablet Branch HYDROcodone Yes TK 1 T PO U nivers -acetaminop 8-06 TID ity of hen 7.5-325 00:00: [place] mg per 00 Medical tablet Branch HYDROcodone Yes TK 1 T PO U nivers -acetaminop 8-06 TID ity of hen 7.5-325 00:00: [place] mg per 00 Medical tablet Branch HYDROcodone Yes TK 1 T PO U nivers -acetaminop 8-06 TID ity of hen 7.5-325 00:00: [place] mg per 00 Medical tablet Branch HYDROcodone Yes TK 1 T PO U nivers -acetaminop 8-06 TID ity of hen 7.5-325 00:00: [place] mg per 00 Medical tablet Branch HYDROcodone Yes TK 1 T PO U nivers -acetaminop 8-06 TID ity of hen 7.5-325 00:00: [place] mg per 00 Medical tablet Branch HYDROcodone Yes TK 1 T PO U nivers -acetaminop 8-06 TID ity of hen 7.5-325 00:00: [place] mg per 00 Medical tablet Branch HYDROcodone Yes TK 1 T PO U nivers -acetaminop 8-06 TID ity of hen 7.5-325 00:00: [place] mg per 00 Medical tablet Branch HYDROcodone Yes TK 1 T PO U nivers -acetaminop 8-06 TID ity of hen 7.5-325 00:00: [place] mg per 00 Medical tablet Branch HYDROcodone Yes TK 1 T PO U nivers -acetaminop 8-06 TID ity of hen 7.5-325 00:00: [place] mg per 00 Medical tablet Branch HYDROcodone Yes TK 1 T PO U nivers -acetaminop 8-06 TID ity of hen 7.5-325 00:00: [place] mg per 00 Medical tablet Branch HYDROcodone Yes TK 1 T PO U nivers -acetaminop 8-06 TID ity of hen 7.5-325 00:00: [place] mg per 00 Medical tablet Branch HYDROcodone Yes TK 1 T PO U nivers -acetaminop 8-06 TID ity of hen 7.5-325 00:00: [place] mg per 00 Medical tablet Branch HYDROcodone Yes TK 1 T PO U nivers -acetaminop 8-06 TID ity of hen 7.5-325 00:00: [place] mg per 00 Medical tablet Branch HYDROcodone Yes TK 1 T PO U nivers -acetaminop 8-06 TID ity of hen 7.5-325 00:00: [place] mg per 00 Medical tablet Branch HYDROcodone Yes TK 1 T PO U nivers -acetaminop 8-06 TID ity of hen 7.5-325 00:00: [place] mg per 00 Medical tablet Branch HYDROcodone 2019-0 Yes TK 1 T PO U nivers -acetaminop 8-06 TID ity of hen 7.5-325 00:00: [place] mg per 00 Medical tablet Branch HYDROcodone 2019-0 Yes TK 1 T PO U nivers -acetaminop 8-06 TID ity of hen 7.5-325 00:00: [place] mg per 00 Medical tablet Branch HYDROcodone 2019-0 Yes TK 1 T PO U nivers -acetaminop 8-06 TID ity of hen 7.5-325 00:00: [place] mg per 00 Medical tablet Branch HYDROcodone 2018-0 Yes TK 1 T PO U nivers -acetaminop 8-06 TID ity of hen 7.5-325 00:00: [place] mg per 00 Medical tablet Branch HYDROcodone 2018-0 Yes TK 1 T PO U nivers -acetaminop 8-06 TID ity of hen 7.5-325 00:00: [place] mg per 00 Medical tablet Branch HYDROcodone 2019-0 Yes TK 1 T PO U nivers -acetaminop 8-06 TID ity of hen 7.5-325 00:00: [place] mg per 00 Medical tablet Branch HYDROcodone 2019-0 Yes TK 1 T PO U nivers -acetaminop 8-06 TID ity of hen 7.5-325 00:00: [place] mg per 00 Medical tablet Branch HYDROcodone 2019-0 Yes TK 1 T PO U nivers -acetaminop 8-06 TID ity of hen 7.5-325 00:00: [place] mg per 00 Medical tablet Branch Immunizations Ordered Filled Immunization Date Status Comments [facility] e Immunization Name Name SARS-COV-2 COVID-19 2022-02-08 Completed Unive rsity of MODERNA 0.25ML 00:00:00 [place] [facility] BOOSTER VACCINE Branch SARS-COV-2 COVID-19 2022-02-08 Completed Unive rsity of MODERNA 0.25ML 00:00:00 [place] [facility] BOOSTER VACCINE Branch SARS-COV-2 COVID-19 2022-02-08 Completed Unive rsity of MODERNA 0.25ML 00:00:00 [place] [facility] BOOSTER VACCINE Branch SARS-COV-2 COVID-19 2022-02-08 Completed Unive rsity of MODERNA 0.25ML 00:00:00 [place] [facility] BOOSTER VACCINE Branch SARS-COV-2 COVID-19 2022-02-08 Completed Unive rsity of MODERNA 0.25ML 00:00:00 [place] [facility] BOOSTER VACCINE Branch SARS-COV-2 COVID-19 2022-02-08 Completed Unive rsity of MODERNA 0.25ML 00:00:00 [place] [facility] BOOSTER VACCINE Branch SARS-COV-2 COVID-19 2022-02-08 Completed Unive rsity of MODERNA 0.25ML 00:00:00 [place] [facility] BOOSTER VACCINE Branch SARS-COV-2 COVID-19 2022-02-08 Completed Unive rsity of MODERNA 0.25ML 00:00:00 [place] [facility] BOOSTER VACCINE Branch SARS-COV-2 COVID-19 2022-02-08 Completed Unive rsity of MODERNA 0.25ML 00:00:00 [place] [facility]i [facility] BOOSTER VACCINE Branch SARS-COV-2 COVID-19 2022-02-08 Completed Unive rsity of MODERNA 0.25ML 00:00:00 [place] [facility]i [facility] BOOSTER VACCINE Branch SARS-COV-2 COVID-19 2022-02-08 Completed Unive rsity of MODERNA 0.25ML 00:00:00 [place] [facility] BOOSTER VACCINE Branch SARS-COV-2 COVID-19 2022-02-08 Completed Unive rsity of MODERNA 0.25ML 00:00:00 [place] [facility] BOOSTER VACCINE Branch SARS-COV-2 COVID-19 2022-02-08 Completed Unive rsity of MODERNA 0.25ML 00:00:00 [place] [facility] BOOSTER VACCINE Branch SARS-COV-2 COVID-19 2022-02-08 Completed Unive rsity of MODERNA 0.25ML 00:00:00 [place] [facility] BOOSTER VACCINE Branch SARS-COV-2 COVID-19 2022-02-08 Completed Unive rsity of MODERNA 0.25ML 00:00:00 [place] [facility] BOOSTER VACCINE Branch SARS-COV-2 COVID-19 2022-02-08 Completed Unive rsity of MODERNA 0.25ML 00:00:00 [place] [facility] BOOSTER VACCINE Branch SARS-COV-2 COVID-19 2022-02-08 Completed Unive rsity of MODERNA 0.25ML 00:00:00 [place] [facility] BOOSTER VACCINE Branch SARS-COV-2 COVID-19 2022-02-08 Completed Unive rsity of MODERNA 0.25ML 00:00:00 [place] [facility] BOOSTER VACCINE Branch SARS-COV-2 COVID-19 2022-02-08 Completed Unive rsity of MODERNA 0.25ML 00:00:00 [place] [facility] BOOSTER VACCINE Branch SARS-COV-2 COVID-19 2022-02-08 Completed Unive rsity of MODERNA 0.25ML 00:00:00 [place] [facility]i [facility] BOOSTER VACCINE Branch SARS-COV-2 COVID-19 2022-02-08 Completed Unive rsity of MODERNA 0.25ML 00:00:00 [place] [facility]i [facility] BOOSTER VACCINE Branch SARS-COV-2 COVID-19 2022-02-08 Completed Unive rsity of MODERNA 0.25ML 00:00:00 [place] [facility]i [facility] BOOSTER VACCINE Branch SARS-COV-2 COVID-19 2022-02-08 Completed Unive rsity of MODERNA 0.25ML 00:00:00 [place] [facility]i [facility] BOOSTER VACCINE Branch SARS-COV-2 COVID-19 2022-02-08 Completed Unive rsity of MODERNA 0.25ML 00:00:00 [place] [facility] BOOSTER VACCINE Branch SARS-COV-2 COVID-19 2022-02-08 Completed Unive rsity of MODERNA 0.25ML 00:00:00 [place] [facility]i [facility] BOOSTER VACCINE Branch SARS-COV-2 COVID-19 2022-02-08 Completed Unive rsity of MODERNA 0.25ML 00:00:00 [place] [facility]i [facility] BOOSTER VACCINE Branch SARS-COV-2 COVID-19 2022-02-08 Completed Unive rsity of MODERNA 0.25ML 00:00:00 [place] [facility] BOOSTER VACCINE Branch SARS-COV-2 COVID-19 2022-02-08 Completed Unive rsity of MODERNA 0.25ML 00:00:00 [place] [facility]i [facility] BOOSTER VACCINE Branch SARS-COV-2 COVID-19 2022-02-08 Completed Unive rsity of MODERNA 0.25ML 00:00:00 [place] [facility]i [facility] BOOSTER VACCINE Branch SARS-COV-2 COVID-19 2022-02-08 Completed Unive rsity of MODERNA 0.25ML 00:00:00 [place] [facility] BOOSTER VACCINE Branch SARS-COV-2 COVID-19 2022-02-08 Completed Unive rsity of MODERNA 0.25ML 00:00:00 [place] [facility] BOOSTER VACCINE Branch SARS-COV-2 COVID-19 2022-02-08 Completed Unive rsity of MODERNA 0.25ML 00:00:00 [place] [facility]i [facility] BOOSTER VACCINE Branch SARS-COV-2 COVID-19 2022-02-08 Completed [facility] 0.25ML 00:00:00 [facility] SARS-COV-2 COVID-19 2022-02-08 Completed [facility] 0.25ML 00:00:00 [facility] SARS-COV-2 COVID-19 2022-02-08 Completed [facility] 0.25ML 00:00:00 [facility] SARS-COV-2 COVID-19 2022-02-08 Completed [facility] 0.25ML 00:00:00 [facility] SARS-COV-2 COVID-19 2022-02-08 Completed [facility] 0.25ML 00:00:00 [facility] SARS-COV-2 COVID-19 2022-02-08 Completed [facility] 0.25ML 00:00:00 [facility] SARS-COV-2 COVID-19 2022-02-08 Completed [facility] 0.25ML 00:00:00 [facility] SARS-COV-2 COVID-19 2022-02-08 Completed [facility] 0.25ML 00:00:00 [facility] SARS-COV-2 COVID-19 2022-02-08 Completed [facility] 0.25ML 00:00:00 [facility] SARS-COV-2 COVID-19 2021-07-13 Completed [facility] VACCINE 00:00:00 [facility] SARS-COV-2 COVID-19 2021-07-13 Completed [facility] VACCINE 00:00:00 [facility] SARS-COV-2 COVID-19 2021-07-13 Completed [facility] 12+ YRS 00:00:00 [facility] SARS-COV-2 COVID-19 2021-07-13 Completed [facility] 12+ YRS 00:00:00 [place] [facility] SARS-COV-2 COVID-19 2021-07-13 Completed [facility] 12+ YRS 00:00:00 [facility] SARS-COV-2 COVID-19 2021-07-13 Completed [facility] 12+ YRS 00:00:00 [place] [facility] SARS-COV-2 COVID-19 2021-07-13 Completed [facility] 12+ YRS 00:00:00 [facility] SARS-COV-2 COVID-19 2021-07-13 Completed [facility] 12+ YRS 00:00:00 [place] [facility] SARS-COV-2 COVID-19 2021-07-13 Completed [facility] 12+ YRS 00:00:00 [facility] SARS-COV-2 COVID-19 2021-07-13 Completed [facility] 12+ YRS 00:00:00 [facility] SARS-COV-2 COVID-19 2021-07-13 Completed [facility] 12+ YRS 00:00:00 [facility] SARS-COV-2 COVID-19 2021-07-13 Completed [facility] 12+ YRS 00:00:00 [place] [facility] SARS-COV-2 COVID-19 2021-07-13 Completed [facility] 12+ YRS 00:00:00 [place] [facility] SARS-COV-2 COVID-19 2021-07-13 Completed [facility] 12+ YRS 00:00:00 [place] [facility] SARS-COV-2 COVID-19 2021-07-13 Completed [facility] 12+ YRS 00:00:00 [facility] SARS-COV-2 COVID-19 2021-07-13 Completed [facility] 12+ YRS 00:00:00 [facility] SARS-COV-2 COVID-19 2021-07-13 Completed [facility] 12+ YRS 00:00:00 [place] [facility] SARS-COV-2 COVID-19 2021-07-13 Completed [facility] 12+ YRS 00:00:00 [facility] SARS-COV-2 COVID-19 2021-07-13 Completed [facility] 12+ YRS 00:00:00 [facility] SARS-COV-2 COVID-19 2021-07-13 Completed [facility] 12+ YRS 00:00:00 [facility] SARS-COV-2 COVID-19 2021-07-13 Completed [facility] 12+ YRS 00:00:00 [place] [facility] SARS-COV-2 COVID-19 2021-07-13 Completed [facility] 12+ YRS 00:00:00 [facility] SARS-COV-2 COVID-19 2021-07-13 Completed [facility] 12+ YRS 00:00:00 [place] [facility] SARS-COV-2 COVID-19 2021-07-13 Completed [facility] 12+ YRS 00:00:00 [facility] SARS-COV-2 COVID-19 2021-07-13 Completed [facility] 12+ YRS 00:00:00 [place] [facility] SARS-COV-2 COVID-19 2021-07-13 Completed [facility] 12+ YRS 00:00:00 [place] [facility] SARS-COV-2 COVID-19 2021-07-13 Completed [facility] 12+ YRS 00:00:00 [place] [facility] SARS-COV-2 COVID-19 2021-07-13 Completed [facility] 12+ YRS 00:00:00 [place] [facility] SARS-COV-2 COVID-19 2021-07-13 Completed [facility] 12+ YRS 00:00:00 [place] [facility] SARS-COV-2 COVID-19 2021-07-13 Completed [facility] 12+ YRS 00:00:00 [place] [facility] SARS-COV-2 COVID-19 2021-07-13 Completed [facility] 12+ YRS 00:00:00 [place] [facility] SARS-COV-2 COVID-19 2021-07-13 Completed [facility] 12+ YRS 00:00:00 [place] [facility] SARS-COV-2 COVID-19 2021-07-13 Completed [facility] 12+ YRS 00:00:00 [place] [facility] SARS-COV-2 COVID-19 2021-07-13 Completed [facility] 12+ YRS 00:00:00 [place] [facility] SARS-COV-2 COVID-19 2021-07-13 Completed [facility] 12+ YRS 00:00:00 [place] [facility] SARS-COV-2 COVID-19 2021-07-13 Completed [facility] 12+ YRS 00:00:00 [place] [facility] SARS-COV-2 COVID-19 2021-07-13 Completed [facility] 12+ YRS 00:00:00 [place] [facility] SARS-COV-2 COVID-19 2021-07-13 Completed [facility] 12+ YRS 00:00:00 [place] [facility] SARS-COV-2 COVID-19 2021-07-13 Completed [facility] 12+ YRS 00:00:00 [place] [facility] SARS-COV-2 COVID-19 2021-07-13 Completed [facility] 12+ YRS 00:00:00 [place] [facility] SARS-COV-2 COVID-19 2021-07-13 Completed [facility] 12+ YRS 00:00:00 [place] [facility] SARS-COV-2 COVID-19 2021-02-08 Completed [facility] VACCINE 00:00:00 [facility] SARS-COV-2 COVID-19 2021-02-08 Completed [facility] VACCINE 00:00:00 [facility] SARS-COV-2 COVID-19 2021-02-08 Completed [facility] 12+ YRS 00:00:00 [place] [facility] SARS-COV-2 COVID-19 2021-02-08 Completed [facility] 12+ YRS 00:00:00 [place] [facility] SARS-COV-2 COVID-19 2021-02-08 Completed [facility] 12+ YRS 00:00:00 [place] [facility] SARS-COV-2 COVID-19 2021-02-08 Completed [facility] 12+ YRS 00:00:00 [place] [facility] SARS-COV-2 COVID-19 2021-02-08 Completed [facility] 12+ YRS 00:00:00 [place] [facility] SARS-COV-2 COVID-19 2021-02-08 Completed [facility] 12+ YRS 00:00:00 [facility] SARS-COV-2 COVID-19 2021-02-08 Completed [facility] 12+ YRS 00:00:00 [facility] SARS-COV-2 COVID-19 2021-02-08 Completed [facility] 12+ YRS 00:00:00 [place] [facility] SARS-COV-2 COVID-19 2021-02-08 Completed [facility] 12+ YRS 00:00:00 [facility] SARS-COV-2 COVID-19 2021-02-08 Completed [facility] 12+ YRS 00:00:00 [place] [facility] SARS-COV-2 COVID-19 2021-02-08 Completed [facility] 12+ YRS 00:00:00 [facility] SARS-COV-2 COVID-19 2021-02-08 Completed [facility] 12+ YRS 00:00:00 [facility] SARS-COV-2 COVID-19 2021-02-08 Completed [facility] 12+ YRS 00:00:00 [place] [facility] SARS-COV-2 COVID-19 2021-02-08 Completed [facility] 12+ YRS 00:00:00 [place] [facility] SARS-COV-2 COVID-19 2021-02-08 Completed [facility] 12+ YRS 00:00:00 [place] [facility] SARS-COV-2 COVID-19 2021-02-08 Completed [facility] 12+ YRS 00:00:00 [place] [facility] SARS-COV-2 COVID-19 2021-02-08 Completed [facility] 12+ YRS 00:00:00 [place] [facility] SARS-COV-2 COVID-19 2021-02-08 Completed [facility] 12+ YRS 00:00:00 [place] [facility] SARS-COV-2 COVID-19 2021-02-08 Completed [facility] 12+ YRS 00:00:00 [place] [facility] SARS-COV-2 COVID-19 2021-02-08 Completed [facility] 12+ YRS 00:00:00 [place] [facility] SARS-COV-2 COVID-19 2021-02-08 Completed [facility] 12+ YRS 00:00:00 [place] [facility] SARS-COV-2 COVID-19 2021-02-08 Completed [facility] 12+ YRS 00:00:00 [place] [facility] SARS-COV-2 COVID-19 2021-02-08 Completed [facility] 12+ YRS 00:00:00 [place] [facility] SARS-COV-2 COVID-19 2021-02-08 Completed [facility] 12+ YRS 00:00:00 [place] [facility] SARS-COV-2 COVID-19 2021-02-08 Completed [facility] 12+ YRS 00:00:00 [place] [facility] SARS-COV-2 COVID-19 2021-02-08 Completed [facility] 12+ YRS 00:00:00 [place] [facility] SARS-COV-2 COVID-19 2021-02-08 Completed [facility] 12+ YRS 00:00:00 [place] [facility] SARS-COV-2 COVID-19 2021-02-08 Completed [facility] 12+ YRS 00:00:00 [place] [facility] SARS-COV-2 COVID-19 2021-02-08 Completed [facility] 12+ YRS 00:00:00 [place] [facility] SARS-COV-2 COVID-19 2021-02-08 Completed [facility] 12+ YRS 00:00:00 [place] [facility] SARS-COV-2 COVID-19 2021-02-08 Completed [facility] 12+ YRS 00:00:00 [place] [facility] SARS-COV-2 COVID-19 2021-02-08 Completed [facility] 12+ YRS 00:00:00 [place] [facility] SARS-COV-2 COVID-19 2021-02-08 Completed [facility] 12+ YRS 00:00:00 [place] [facility] SARS-COV-2 COVID-19 2021-02-08 Completed [facility] 12+ YRS 00:00:00 [facility] SARS-COV-2 COVID-19 2021-02-08 Completed [facility]NA 12+ YRS 00:00:00 [place] [facility] SARS-COV-2 COVID-19 2021-02-08 Completed [facility] 12+ YRS 00:00:00 [place] [facility] SARS-COV-2 COVID-19 2021-02-08 Completed [facility] 12+ YRS 00:00:00 [place] [facility] SARS-COV-2 COVID-19 2021-02-08 Completed [facility] 12+ YRS 00:00:00 [place] [facility] SARS-COV-2 COVID-19 2021-02-08 Completed [facility] 12+ YRS 00:00:00 [place] [facility] SARS-COV-2 COVID-19 2021-01-11 Completed [facility] VACCINE 00:00:00 [facility] SARS-COV-2 COVID-19 2021-01-11 Completed [facility]ER[facility] VACCINE 00:00:00 [facility] SARS-COV-2 COVID-19 2021-01-11 Completed [facility] 12+ YRS 00:00:00 [place] [facility] SARS-COV-2 COVID-19 2021-01-11 Completed [facility]ERNA 12+ YRS 00:00:00 [place] [facility] SARS-COV-2 COVID-19 2021-01-11 Completed [facility]ERNA 12+ YRS 00:00:00 [place] [facility] SARS-COV-2 COVID-19 2021-01-11 Completed [facility]ER[facility] 12+ YRS 00:00:00 [place] [facility] SARS-COV-2 COVID-19 2021-01-11 Completed [facility]ER[facility] 12+ YRS 00:00:00 [place] [facility] SARS-COV-2 COVID-19 2021-01-11 Completed [facility] 12+ YRS 00:00:00 [place] [facility] SARS-COV-2 COVID-19 2021-01-11 Completed [facility]ERNA 12+ YRS 00:00:00 [place] [facility] SARS-COV-2 COVID-19 2021-01-11 Completed [facility]ER[facility] 12+ YRS 00:00:00 [place] [facility] SARS-COV-2 COVID-19 2021-01-11 Completed [facility]ERNA 12+ YRS 00:00:00 [place] [facility] SARS-COV-2 COVID-19 2021-01-11 Completed [facility] 12+ YRS 00:00:00 [place] [facility] SARS-COV-2 COVID-19 2021-01-11 Completed [facility]ER[facility] 12+ YRS 00:00:00 [place] [facility] SARS-COV-2 COVID-19 2021-01-11 Completed [facility]ERNA 12+ YRS 00:00:00 [place] [facility] SARS-COV-2 COVID-19 2021-01-11 Completed [facility]ERNA 12+ YRS 00:00:00 [place] [facility] SARS-COV-2 COVID-19 2021-01-11 Completed [facility]ERNA 12+ YRS 00:00:00 [place] [facility] SARS-COV-2 COVID-19 2021-01-11 Completed [facility]ERNA 12+ YRS 00:00:00 [place] [facility] SARS-COV-2 COVID-19 2021-01-11 Completed [facility]ERNA 12+ YRS 00:00:00 [place] [facility] SARS-COV-2 COVID-19 2021-01-11 Completed [facility]ERNA 12+ YRS 00:00:00 [place] [facility] SARS-COV-2 COVID-19 2021-01-11 Completed [facility]ERNA 12+ YRS 00:00:00 [place] [facility] SARS-COV-2 COVID-19 2021-01-11 Completed [facility]ERNA 12+ YRS 00:00:00 [place] [facility] SARS-COV-2 COVID-19 2021-01-11 Completed [facility]ERNA 12+ YRS 00:00:00 [place] [facility] SARS-COV-2 COVID-19 2021-01-11 Completed [facility] MODERNA 12+ YRS 00:00:00 [place] [facility] SARS-COV-2 COVID-19 2021-01-11 Completed [facility] MODERNA 12+ YRS 00:00:00 [place] [facility] SARS-COV-2 COVID-19 2021-01-11 Completed [facility] MODERNA 12+ YRS 00:00:00 [place] [facility] SARS-COV-2 COVID-19 2021-01-11 Completed [facility] MODERNA 12+ YRS 00:00:00 [place] [facility] SARS-COV-2 COVID-19 2021-01-11 Completed [facility] MODERNA 12+ YRS 00:00:00 [place] [facility] SARS-COV-2 COVID-19 2021-01-11 Completed [facility] MODERNA 12+ YRS 00:00:00 [place] [facility] SARS-COV-2 COVID-19 2021-01-11 Completed [facility] MODERNA 12+ YRS 00:00:00 [place] [facility] SARS-COV-2 COVID-19 2021-01-11 Completed [facility] MODERNA 12+ YRS 00:00:00 [place] [facility] SARS-COV-2 COVID-19 2021-01-11 Completed [facility] MODERNA 12+ YRS 00:00:00 [place] [facility] SARS-COV-2 COVID-19 2021-01-11 Completed [facility]ERNA 12+ YRS 00:00:00 [place] [facility] SARS-COV-2 COVID-19 2021-01-11 Completed [facility] MODERNA 12+ YRS 00:00:00 [place] [facility] SARS-COV-2 COVID-19 2021-01-11 Completed [facility]ERNA 12+ YRS 00:00:00 [place] [facility] SARS-COV-2 COVID-19 2021-01-11 Completed [facility] MODERNA 12+ YRS 00:00:00 [place] [facility] SARS-COV-2 COVID-19 2021-01-11 Completed [facility] MODERNA 12+ YRS 00:00:00 [place] [facility] SARS-COV-2 COVID-19 2021-01-11 Completed [facility] MODERNA 12+ YRS 00:00:00 [place] [facility] SARS-COV-2 COVID-19 2021-01-11 Completed [facility]NA 12+ YRS 00:00:00 [place] [facility] SARS-COV-2 COVID-19 2021-01-11 Completed [facility]ERNA 12+ YRS 00:00:00 [place] [facility] SARS-COV-2 COVID-19 2021-01-11 Completed [facility]ERNA 12+ YRS 00:00:00 [place] [facility] SARS-COV-2 COVID-19 2021-01-11 Completed [facility]ERNA 12+ YRS 00:00:00 [place] [facility]INE [facility] Influenza Virus 2020-07-19 Completed [facility] .5 mL 00[facility]00:[address] [facility] IM 6+ MO [facility] Influenza Virus 2020-07-19 Completed [facility] .5 mL 00:00:00 [facility] MO [facility] Influenza Virus 2020-07-19 Completed [facility] .5 mL 00:00:00 [facility] IM 6[facility] MO [facility] Influenza Virus 2020-07-19 Completed [facility] .5 mL 00:00:00 [facility] 6[facility] MO [facility] Influenza Virus 2020-07-19 Completed [facility] .5 mL 00:00:00 [facility] 6[facility] MO [facility] Influenza Virus 2020-07-19 Completed [facility] .5 mL 00:00:00 [facility] MO [facility] Influenza Virus 2020-07-19 Completed [facility] .5 mL 00:00:00 [facility] MO [facility] Influenza Virus 2020-07-19 Completed [facility] .5 mL 00:00:00 [facility] MO [facility] Influenza Virus 2020-07-19 Completed [facility] .5 mL 00:00:00 [facility] MO [facility] Influenza Virus 2020-07-19 Completed [facility] .5 mL 00:00:00 [facility] MO [facility] Influenza Virus 2020-07-19 Completed [facility] .5 mL 00:00:00 [facility] MO [facility] Influenza Virus 2020-07-19 Completed [facility] .5 mL 00:00:00 [facility] Influenza Virus 2020-07-19 Completed [facility] .5 mL 00:00:00 [facility] 6[facility] MO [facility] Influenza Virus 2020-07-19 Completed [facility] .5 mL 00:00:00 [facility] 6[facility] MO [facility] Influenza Virus 2020-07-19 Completed [facility] .5 mL 00:00:00 [facility] MO [facility] Influenza Virus 2020-07-19 Completed [facility] .5 mL 00:00:00 [facility] 6[facility] MO [facility] Influenza Virus 2020-07-19 Completed [facility] .5 mL 00:00:00 [facility] 6[facility] MO [facility] Influenza Virus 2020-07-19 Completed [facility] .5 mL 00:00:00 [facility] MO [facility] Influenza Virus 2020-07-19 Completed [facility] .5 mL 00:00:00 [facility] 6[facility] MO [facility] Influenza Virus 2020-07-19 Completed [facility] .5 mL 00:00:00 [facility] MO [facility] Influenza Virus 2020-07-19 Completed [facility] .5 mL 00:00:00 [facility] 6[facility] MO [facility] Influenza Virus 2020-07-19 Completed [facility] .5 mL 00:00:00 [facility] 6[facility] MO [facility] Influenza Virus 2020-07-19 Completed [facility] .5 mL 00:00:00 [facility] 6[facility] MO [facility] Influenza Virus 2020-07-19 Completed [facility] .5 mL 00:00:00 [facility] 6[facility] MO [facility] Influenza Virus 2020-07-19 Completed [facility] .5 mL 00:00:00 [facility] IM 6[facility] MO [facility] Influenza Virus 2020-07-19 Completed [facility] .5 mL 00:00:00 [facility] 6[facility] MO [facility] Influenza Virus 2020-07-19 Completed [facility] .5 mL 00:00:00 [facility] IM 6[facility] MO [facility] Influenza Virus 2020-07-19 Completed [facility] .5 mL 00:00:00 [facility] 6[facility] MO [facility] Influenza Virus 2020-07-19 Completed [facility] .5 mL 00:00:00 [facility] 6[facility] MO [facility] Influenza Virus 2020-07-19 Completed [facility] .5 mL 00:00:00 [facility] 6[facility] MO [facility] Influenza Virus 2020-07-19 Completed [facility] .5 mL 00:00:00 [facility] MO [facility] Influenza Virus 2020-07-19 Completed [facility] .5 mL 00:00:00 [facility] 6[facility] MO [facility] Influenza Virus 2020-07-19 Completed [facility] .5 mL 00:00:00 [facility] 6[facility] MO [facility] Influenza Virus 2020-07-19 Completed [facility] .5 mL 00:00:00 [facility] 6[facility] MO [facility] Influenza Virus 2020-07-19 Completed [facility] .5 mL 00:00:00 [facility] 6[facility] MO [facility] Influenza Virus 2020-07-19 Completed [facility] .5 mL 00:00:00 [facility] 6[facility] MO [facility] Influenza Virus 2020-07-19 Completed [facility] .5 mL 00:00:00 [facility] MO [facility] Influenza Virus 2020-07-19 Completed [facility] .5 mL 00:00:00 [facility] MO [facility] Influenza Virus 2020-07-19 Completed [facility] .5 mL 00:00:00 [facility] MO [facility] Influenza Virus 2020-07-19 Completed [facility] .5 mL 00:00:00 [facility] MO [facility] Influenza Virus 2020-07-19 Completed [facility] .5 mL 00:00:00 [facility] Td 2018-06-09 Completed [facility] 00:00:00 [facility] Td 2018-06-09 Completed [facility] 00:00:00 [facility] Td 2018-06-09 Completed [facility] 00:00:00 [facility] Td 2018-06-09 Completed [facility] 00:00:00 [facility] Td 2018-06-09 Completed [facility] 00:00:00 [facility] Td 2018-06-09 Completed [facility] 00:00:00 [facility] Td 2018-06-09 Completed [facility] 00:00:00 [facility] Td 2018-06-09 Completed [facility] 00:00:00 [facility] Td 2018-06-09 Completed [facility] 00:00:00 [facility] Td 2018-06-09 Completed [facility] 00:00:00 [facility] Td 2018-06-09 Completed [facility] 00:00:00 [facility] Td 2018-06-09 Completed [facility] 00:00:00 [facility] Td 2018-06-09 Completed [facility] 00:00:00 [facility] Td 2018-06-09 Completed [facility] 00:00:00 [facility] Td 2018-06-09 Completed [facility] 00:00:00 [facility] TD, NOS 2018-06-09 Completed [facility] 00:00:00 [facility] TD, NOS 2018-06-09 Completed [facility] 00:00:00 [facility] TD, NOS 2018-06-09 Completed [facility] 00:00:00 [facility] TD, NOS 2018-06-09 Completed [facility] 00:00:00 [facility] TD, NOS 2018-06-09 Completed [facility] 00:00:00 [facility] TD, NOS 2018-06-09 Completed [facility] 00:00:00 [facility] TD, NOS 2018-06-09 Completed [facility] 00:00:00 [facility] TD, NOS 2018-06-09 Completed [facility] 00:00:00 [facility] TD, NOS 2018-06-09 Completed [facility] 00:00:00 [facility] TD, NOS 2018-06-09 Completed [facility] 00:00:00 [facility] TD, NOS 2018-06-09 Completed [facility] 00:00:00 [facility] TD, NOS 2018-06-09 Completed [facility] 00:00:00 [facility] TD, NOS 2018-06-09 Completed [facility] 00:00:00 [facility] TD, NOS 2018-06-09 Completed [facility] 00:00:00 [facility] TD, NOS 2018-06-09 Completed [facility] 00:00:00 [facility] TD, NOS 2018-06-09 Completed [facility] 00:00:00 [facility] TD, NOS 2018-06-09 Completed [facility] 00:00:00 [facility] TD, NOS 2018-06-09 Completed [facility] 00:00:00 [facility] TD, NOS 2018-06-09 Completed [facility] 00:00:00 [facility] TD, NOS 2018-06-09 Completed [facility] 00:00:00 [facility] TD, NOS 2018-06-09 Completed [facility] 00:00:00 [facility] TD, NOS 2018-06-09 Completed [facility] 00:00:00 [facility] TD, NOS 2018-06-09 Completed [facility] 00:00:00 [facility] TD, NOS 2018-06-09 Completed [facility] 00:00:00 [facility] TD, NOS 2018-06-09 Completed [facility] 00:00:00 [facility] TD, NOS 2018-06-09 Completed [facility] of 00:00:00 [facility] Vital Signs Vital Name Observation Time Observation Value Comments Source Systolic blood 2022-11-08 14:27:00 136 mm[Hg] Un[facility] of pressure [facility] Diastolic blood 2022-11-08 14:27:00 89 mm[Hg] Unive rsity of pressure [facility] Heart rate 2022-11-08 14:27:00 69 /min [facility] of [facility] Body temperature 2022-11-08 14:27:00 36.06 [place] [facility] Respiratory rate 2022-11-08 14:27:00 18 /min [facility] Body height 2022-11-08 14:27:00 162.6 cm [facility] Oxygen saturation in 2022-11-08 14:27:00 99 /min [facility] of Arterial blood by [facility] Pulse oximetry Branch Systolic blood 2022-11-08 14:17:00 136 mm[Hg] Univer [facility]ity of pressure [facility] Diastolic blood 2022-11-08 14:17:00 89 mm[Hg] [facility] of pressure [facility] Heart rate 2022-11-08 14:17:00 69 /min [facility] Body temperature 2022-11-08 14:17:00 36.06 [place] [facility] Respiratory rate 2022-11-08 14:17:00 18 /min [facility] Oxygen saturation in 2022-11-08 14:17:00 99 /min [facility] of Arterial blood by [facility] Pulse oximetry Branch Systolic blood 2022-10-11 22:00:00 162 mm[Hg] Univer [facility]ity of pressure [facility] Diastolic blood 2022-10-11 22:00:00 109 mm[Hg] [facility] of pressure [facility] Heart rate 2022-10-11 22:00:00 71 /min [facility] Respiratory rate 2022-10-11 22:00:00 18 /min [facility] Oxygen saturation in 2022-10-11 22:00:00 97 /min [facility] Arterial blood by [facility] Pulse oximetry Branch Body temperature 2022-10-11 19:55:00 35.61 Jacqui [facility] Body height 2022-10-11 19:55:00 162.6 cm [facility] Body weight 2022-10-11 19:55:00 114.76 kg [facility] BMI 2022-10-11 19:55:00 43.43 kg/m2 [facility] Systolic blood 2022-09-17 14:46:00 134 mm[Hg] [facility] Diastolic blood 2022-09-17 14:46:00 80 mm[Hg] [facility] Heart rate 2022-09-17 14:46:00 85 /min [facility] Body temperature 2022-09-17 14:46:00 36.11 Jacqui [facility] Respiratory rate 2022-09-17 14:46:00 18 /min [facility] Body height 2022-09-17 14:46:00 162.6 cm [facility] Body weight 2022-09-17 14:46:00 114.76 kg [facility] BMI 2022-09-17 14:46:00 43.43 kg/m2 [facility] Oxygen saturation in 2022-09-17 14:46:00 97 /min [facility] Arterial blood by [facility] Pulse oximetry Branch Systolic blood 2022-08-08 13:11:00 120 mm[Hg] [facility] Diastolic blood 2022-08-08 13:11:00 77 mm[Hg] [facility] Heart rate 2022-08-08 13:11:00 96 /min [facility] Body temperature 2022-08-08 13:11:00 35.94 Jacqui [facility] Respiratory rate 2022-08-08 13:11:00 18 /min [facility] Body height 2022-08-08 13:11:00 162.6 cm [facility] Oxygen saturation in 2022-08-08 13:11:00 96 /min [facility] Arterial blood by [facility] rodney Pulse oximetry Branch Systolic blood 2022-07-04 13:58:00 132 mm[Hg] [facility] Diastolic blood 2022-07-04 13:58:00 83 mm[Hg] [facility] Heart rate 2022-07-04 13:52:00 74 /min [facility] Body temperature 2022-07-04 13:52:00 36.06 Jacqui [facility] Respiratory rate 2022-07-04 13:52:00 18 /min [facility] Body height 2022-07-04 13:52:00 162.6 cm [facility] Body weight 2022-07-04 13:52:00 116.121 kg [facility] BMI 2022-07-04 13:52:00 43.94 kg/m2 [facility] Procedures Procedure Date / Time Performing Clinician Source Performed MEDICAL RELEASE/CLEARANCE 2022-12-18 06:01:[address] [facility] FORMS [place] [facility] COMP. METABOLIC PANEL 2022-10-11 20:42:00 Pedro Pitt [facility] ([id number] CBC WITH DIFF 2022-10-11 20:42:00 Singer [facility] o f [facility] RAPID INFLUENZA A/B 2022-10-11 20:42:00 Pedro [facility] CONSENT/REFUSAL FOR 2022-09-17 14:45:00 Doctor Wallace [facility] DIAGNOSIS AND TREATMENT [place] [facility] INSURANCE CORRESPONDENCE 2022-09-13 06:01:[address] [facility] [place] [facility] DME/SUPPLY JUSTIFICATION 2022-06-27 05:01:[address] [facility] [place] [facility] Encounters Start End Encounter Admission Attending Care Care Encounter Source Date/Time Date/Time Type Type Clinicians Facility Department ID 2021-09-05 Emergency [facility] [id number] Univers 05:29:00 [facility] 2023-07-04 2023-07-04 Outpatient R DANIEL [facility] [id number] Univers 09:20:00 09:20:00 TANISHA evangelista o f [facility] 2023-07-04 2023-07-04 Outpatient R DANIEL [facility] [id number] Univers 09:20:00 09:20:00 TANISHA evangelista o f [facility] 2023-02-27 2023-02-27 Outpatient R CARO [facility] [id number] Univers 00:00:00 00:00:00 CODY [facility] 2023-02-07 2023-02-07 Outpatient R CARO [facility] [id number] Univers 08:40:00 08:40:00 PETER [facility] 2023-01-29 2023[facility]01-29 [facility] 1.2.840.114 [id number] Univers 00:00:00 00:00:00 Cody RAMESH 350.1.13.10 i ty of [facility] [place].2.[place] [id number] Ct dicar NAL [address] [place] [address] 2023-01-28 2023-01-28 Telephone [facility] 1.2.840.114 1 [id number] Univers 00:00:00 00:00:00 Cody RAMESH 350.1.13.10 i ty of [facility] 4.2.7.2.[place] PROF[place] [id number] Ct dic[address] 2023-01-20 2023-01-20 [facility] 1.2.840.114 1 [id number] Univers 00:00:00 00:00:00 Cody RAMESH 350.1.13.10 i ty of [facility] 4.2.7.2.[place] [id number] Ct dicar NAL [address] [place] [address] 2023-01-09 2023-01-09 [facility] 1.2.840.114 1 [id number] Univers 00:00:00 00:00:00 Cody RAMESH 350.1.13.10 i ty of [facility] 4.2.7.2.[place] [id number] Ct dicar NAL [address] [place] [address] 2023-01-02 2023-01-02 [facility] 1.2.840.114 [id number] Univers 00:00:00 00:00:00 Cody RAMESH 350.1.13.10 i ty of [place] 4.2.7.2.[place] PROF[place] [id number] Ct dicar NAL [address] [place] [address] 2022-12-25 2022-12-25 [facility] 1.2.840.114 1 [id number] Univers 00:00:00 00:00:00 Cody RYAN 350.1.13.10 it y of [facility] 4.2.7.2.686 Willy as VERONICA?BLEA [id number] Ct aurora MILLRE 044 [facility] 2022-12-18 2022-12-18 Telephone [facility] 1.2.840.114 1 [id number] Univers 00:00:00 00:00:00 Cody RAMESH 350.1.13.10 i ty of [place] 4.2.7.2.[place] [id number] Ct dinaar SAMY [address] [place] [address] 2022-12-18 2022-12-18 Orders Doctor CAROLINE 1.2.840.114 [id number] Univers 00:00:00 00:00:00 Only Unassigned, MALACHI 350.1.13.10 ity of [place] [facility] 4.2.7.2.686 Willy as [id number] [facility] [address] 2022-12-10 2022-12-10 Telephone [facility] 1.2.840.114 1 [id number] Univers 00:00:00 00:00:00 Cody RAMESH 350.1.13.10 i ty of [place] 4.2.7.2.[place] [id number] [address] 2022-12-07 2022-12-07 Outpatient R [facility] [id number] Univers 08:32:14 23:59:00 CODY ity of [facility] 2022-12-07 2022-12-07 [facility] 1.2.840.114 [id number] Univers 08:32:14 23:59:00 Encounter Cody RAMESH 350.1.13.10 ity of [place].2.7.2.[place] CAMPUS [id number] [facility] [address] 2022-11-27 2022-11-27 Refill [facility] 1.2.840.114 [id number] Univers 00:00:00 00:00:00 Cody RAMESH 350.1.13.10 i ty of [place] 4.2.7.2.[place] [id number] [address] 2022-11-26 2022-11-26 Ancillary Arnaldo Stewart [facility] 1.2.840. 114 [id number] Univers 13:45:00 14:30:57 Visit Gurpreet Ty 350.1.13.10 ity of [facility] 4.2.7.2.[place] [id number] [facility] 179 [facility] 2022-11-22 2022-11-22 Outpatient [facility] [id number] Univers 14:30:00 15:53:14 CODY evangelista [facility] 2022-11-22 2022-11-22 Ancillary Yaquelin Mari [facility] 1 .2.840.114 [id number] Univers 14:30:00 15:53:14 Visit Henri Ortiz 350.1.13.10 ity of [facility] 4.2.7.2.[place] [id number] [facility] 179 [facility] 2022-11-09 2022-11-09 Telephone [facility] 1.2.840.114 9 [id number] Univers 00:00:00 00:00:00 Cody RAMESH 350.1.13.10 i ty of [facility] 4.2.7.2.[place] [id number] [facility] 044 [facility] 2022-11-08 2022-11-08 Outpatient R CARO [facility] [id number] Univers 08:20:00 09:06:29 CODY evangelista [facility] 2022-11-08 2022-11-08 Office [facility] 1.2.840.114 [id number] Univers 08:20:00 09:06:29 Visit Cody RAMESH 350.1.13.10 i ty of [facility] 4.2.7.2.[place] [id number] [facility] 044 [facility] 2022-11-08 2022-11-08 Assembler Seat Brent, Reginald Lab Main [facility] 1.2.8 40.114 [id number] Univers 08:45:00 09:00:00 Visit Cody Dwyer 350.1.13.10 ity of [place] 4.2.7.2.686 [place] [id number] [facility] 353 [facility] 2022-11-08 2022-11-08 Office [facility] 1.2.840.114 [id number] Univers 08:00:00 08:20:00 Visit Cody RAMESH 350.1.13.10 i ty of [place] 4.2.7.2.[place] [id number] Ct dical NAL 044 [facility] 2022-11-01 2022-11-01 Refill [facility] 1.2.840.114 [id number] Univers 00:00:00 00:00:00 Cody RAMESH 350.1.13.10 i ty of [place] 4.2.7.2.[place] [id number] Ct dic[address] 2022-10-31 2022-10-31 Telephone Kim RODRIGES 1.2.840.114 [id number] Univers 00:00:00 00:00:00 , Awa RICHMOND 350.1.13.10 ity of [place].2.7.2.[place] [id number] [address] 2022-10-31 2022-10-31 Telephone Alvarez SHEARN 1.2.840.114 [id number] Univers 00:00:00 00:00:00 , Awa Guaman [place] 350.1.13.10 ity of [place].2.7.2.[place] [id number] [address] 2022-10-16 2022-10-16 Telephone [facility] 1.2.840.114 9 [id number] Univers 00:00:00 00:00:00 Cody RAMESH 350.1.13.10 i ty of [place] 4.2.7.2.[place] PROF[place] [id number] Ct dic[address] 2022-10-11 2022-10-11 Emergency X SINGER [facility] ERT [id number] Univers 13:53:00 17:14:00 PEDRO evangelista [facility] 2022-10-11 2022-10-11 Emergency Pitt, [facility] 1.2.524.529 [id number] Univers 13:53:00 17:14:00 Pedro RAMESH 350.1.13.10 i ty of [place] 4.2.7.2.686 [place] [facility] [id number] [address] 2022-10-08 2022-10-08 Telephone [facility] 1.2.840.114 9 [id number] Univers 00:00:00 00:00:00 Cody RAMESH 350.1.13.10 i ty of [facility] 4.2.7.2.[place] [id number] Ct dical NAL 044 [facility] 2022-09-17 2022-09-17 Emergency Aufderheide [facility] 1.2.840.114 [id number] Univers 08:48:00 09:19:00 , Serina GADIEL 350.1.13.10 i ty of [place]UM[place] 4.2.7.2.686 [facility] [id number] [address] 2022-09-17 2022-09-17 Outpatient R [facility] [id number] Univers 07:41:51 08:47:00 TANISHA melryanne daniels [facility] 2022-09-17 2022-09-17 Outpatient R DANIEL, [facility] ERT [id number] Univers 07:41:51 08:47:00 TANISHA daniels soledad [facility] 2022-09-17 2022-09-17 Telephone Jamaalww [facility] 1.2.840.114 9 [id number] Univers 00:00:00 00:00:00 Cody RAMESH 350.1.13.10 i ty of [place] 4.2.7.2.686 [place] [id number] dical NAL 044 [facility] 2022-09-13 2022-09-13 Orders Doctor VELAZQUEZ 1.2.840.114 [id number] Univers 00:00:00 00:00:00 Only Unassigned, MALACHI 350.1.13.10 ity of [place] [facility] 4.2.7.2.686 Willy as [id number] [address] 2022-09-04 2022-09-04 Outpatient R CASTILLO, [facility] [id number] Univers 08:00:00 08:00:00 VILLA tonja [facility] 2022-08-08 2022-08-08 Outpatient R CARO, [facility] [id number] [facility] 08:20:00 09:11:24 CODY evangelista [facility] 2022-08-08 2022-08-08 Office JamaalmarinazaheerBoston [facility] 1.2.840.114 [id number] Univers 08:20:00 09:11:24 Visit Cody RAMESH 350.1.13.10 i ty of [place] 4.2.7.2.686 [place] [id number] Ct dical NAL 044 [facility] 2022-07-17 2022-07-17 Telephone [facility] 1.2.840.114 9 [id number] Univers 00:00:00 00:00:00 Cody RAMESH 350.1.13.10 i ty of [place] 4.2.7.2.[place] [id number] Ct dical NAL 044 [facility] 2022-07-04 2022-07-04 Outpatient R DANIEL, [facility] [id number] Univers 09:00:00 09:14:46 TANISHA daniels [facility] 2022-07-04 2022-07-04 [facility] 1.2.840.114 [id number] Univers 09:00:00 09:14:46 Visit Laurenjennycasie PONCEFRENCH 350.1.13.10 ity of [facility] 4.2.7.2.686 [place] PROF[place] [id number] Ct dical NAL 059 [facility] 2022-07-04 2022-07-04 Outpatient R DANIEL, [facility] [id number] Univers 09:00:00 09:14:46 TANISHA daniels [facility] 2022-07-04 2022-07-04 Outpatient R DANIEL, [facility] [id number] Univers 09:00:00 09:00:00 TANISHA rowe [facility] 2022-06-30 2022-06-30 [facility] 1.2.840.114 [id number] Univers 00:00:00 00:00:00 Cody RAMESH 350.1.13.10 i ty of [place] 4.2.7.2.686 [place] [id number] [facility] 044 [facility] 2022-06-27 2022-06-27 Telephone [facility] 1.2.840.114 [id number] Univers 00:00:00 00:00:00 Cody RAMESH 350.1.13.10 i ty [place] 4.2.7.2.[place] [id number] [address] 2022-06-27 2022-06-27 Orders Doctor CAROLINE 1.2.840.114 [id number] Univers 00:00:00 00:00:00 Only Unassigned, MALACHI 350.1.13.10 ity of [place] [facility] 4.2.7.2.686 Willy as [id number] [address] 2022-06-20 2022-06-20 Telephone [facility] 1.2.840.114 9 [id number] Univers 00:00:00 00:00:00 Cody RAMESH 350.1.13.10 i ty of [place] 4.2.7.2.686 [place] [id number] [facility] 231 [facility] 2022-06-12 2022-06-12 Telephone [facility] 1.2.840.114 9 [id number] Univers 00:00:00 00:00:00 Cody RAMESH 350.1.13.10 i ty of [place] 4.2.7.2.686 [place] [id number] [address] 2022-06-12 2022-06-12 Telephone [facility] 1.2.840.114 [id number] Univers 00:00:00 00:00:00 Cody RAMESH 350.1.13.10 i ty of [place] 4.2.7.2.[place] PROF[place] [id number] Ct dical NAL 231 [facility] 2022-05-22 2022-05-22 Outpatient ARGENIS_JUDSON FIGUEROA [facility] 977 [place] 09:22:00 09:22:00 _ANN 0719 da [facility] 2022-05-12 2022-05-12 Telephone [facility] 1.2.840.114 9 [id number] Univers 00:00:00 00:00:00 Cody RAMESH 350.1.13.10 i ty of [place] 4.2.7.2.[place] PROF[place] [id number] Ct dical NAL 044 [facility] 2022-05-08 2022-05-08 Assembler Seat 2, Adc Lab [facility] 1.2.840.114 [id number] Univers 09:30:00 09:45:00 Visit Cody Dwyer 350.1.13.10 ity [facility] 4.2.7.2.686 [place] PROFESS[place] [id number] Ct dical NAL 353 [facility] 2022-05-08 2022-05-08 Outpatient R CARO [facility] [id number] Univers 08:40:00 09:26:39 CODY evangelista [facility] 2022-05-08 2022-05-08 Office [facility] 1.2.840.114 [id number] Univers 08:40:00 09:26:39 Visit Cody RAMESH 350.1.13.10 i ty of [place] 4.2.7.2.[place] [id number] Ct dical NAL 044 [facility] 2022-05-04 2022-05-04 Refill [facility] 1.2.840.114 [id number] Univers 00:00:00 00:00:00 Cody RAMESH 350.1.13.10 i ty of [place] 4.2.7.2.[place] [id number] Ct dical NAL 044 [facility] 2022-04-26 2022-04-26 Telephone [facility]UN[facility] 1.2.840.114 [id number] Univers 00:00:00 00:00:00 [place] [facility] 350.1.13.10 ity of [place].2.7.2.[place] [id number] Ct dical [address] 2022-04-18 2022-04-18 Telephone CAROLINE Chong 1.2.840.114 [id number] Univers 00:00:00 00:00:00 [place] MALACHI 350.1.13.10 ity of HOSPITAL 4.2.7.2.686 [place]ly as [id number] [address] 2022-04-17 2022-04-17 Outpatient R [facility], [facility] [id number] Univers 14:49:43 23:59:00 VILLA evangelista [facility] 2022-04-17 2022-04-17 Outpatient R [facility] [id number] Univers 14:49:43 23:59:00 VILLA evangelista [facility] 2022-04-17 2022-04-17 [facility] 1.2.726.012 [id number] Univers 14:49:43 23:59:00 Encounter [place] [facility] 350.1.13.10 ity of [place] 4.2.7.2.[place] [id number] Ct dical [address] 2022-04-17 2022-04-17 Outpatient R [facility] [id number] Univers 14:49:43 23:59:00 VILLA evangelista [facility] 2022-04-17 2022-04-17 Assembler Seat Pcp-Lab [facility] 1.2.840.114 [id number] Univers 16:00:00 16:00:00 Visit [place] PR[place] 350.1.13.10 ity of [place] 4.2.7.2.[place] [id number] Ct dical [address] 2022-04-17 2022-04-17 Office [facility] 1.2.840.114 [id number] Univers 15:00:00 15:00:00 Visit [place] [facility] 350.1.13.10 ity of [place] 4[place]2.7.2.[place] [id number] Me dical [address] 2022-04-17 2022-04-17 Outpatient R CASTILLO [facility] [id number] Univers 14:49:43 14:49:43 VILLA [facility] 2022-04-17 2022-04-17 Outpatient R CASTILLO [facility] [id number] Univers 15:00:00 14:45:12 VILLA [facility] 2022-04-12 2022-04-12 Outpatient Armida WATT [facility] [id number] Univers 10:00:00 10:00:00 [facility] 2022-04-12 2022-04-12 Office [facility] 1.2.840.114 [id number] Univers 10:00:00 10:00:00 Visit [facility] 350.1.13.10 it y david [facility] 4.2.7.2.686 Willy as VERONICA?BLEA [id number] Ct dical NUVIAIESHA [address] [place] [address] 2022-04-12 2022-04-12 Outpatient Armida SHUKRI [facility] [id number] Univers 10:00:00 09:35:02 [facility] 2022-04-05 2022-04-05 Outpatient Armida [facility]LECT [facility] [id number] Univers 09:30:00 09:30:00 [facility] 2022-04-03 2022-04-03 Assembler Seat 2, Adc Lab [facility] 1.2.840.114 [id number] Univers 16:15:00 16:16:43 Visit Cody Dwyer 350.1.13.10 ity david [place] 4[place]2.7.2.686 [place] [id number] Ct dical NAL 353 [facility] 2022-04-03 2022-04-03 Outpatient R [facility] [id number] Univers 16:15:00 16:15:00 CODY evangelista [facility] 2022-04-03 2022-04-03 Office [facility] 1.2.840.114 [id number] Univers 14:40:00 16:07:34 Visit Cody RAMESH 350.1.13.10 i ty of [place] 4.2.7.2.686 [place] ESSIO [id number] Ct aurora PABLO 044 [facility] 2022-04-03 2022-04-03 Outpatient R JAMAALMARINAKRISTYSELECT [facility]ICAL [facility] [id number] Univers 14:40:00 16:07:34 CODY tonja [facility] 2022-04-03 2022-04-03 Outpatient R [facility] [id number] Univers 14:40:00 14:40:00 CODY evangelista [facility] 2022-03-29 2022-03-29 Assembler Seat Lab, Ang - Db [facility] 1.2.840.1 14 [id number] Univers 10:15:00 10:30:00 Visit Itz Wtat [facility] 350.1.13.10 ity david [place] 4.2.7.2.686 [place] as VERONICA?BLEA [id number] Ct aurora PEDERSENIESHA [address] [facility] OFFICE [facility] 2022-03-29 2022-03-29 Outpatient R [facility]UK[facility] [id number] Univers 09:30:00 09:59:43 ITZ ryanne [facility] 2022-03-29 2022-03-29 Office [facility] 1.2.840.114 [id number] Univers 09:30:00 09:59:43 Visit [facility] 350.1.13.10 it y of [facility] 4.2.7.2.686 Willy as VERONICA?BLEA [id number] Ct dinadanisha NUVIAIESHA [address] [facility] OFFICE [facility] 2022-03-29 2022-03-29 Outpatient R [facility]UK[facility]LECT [facility] [id number] Univers 09:30:00 09:59:43 ITZ melryanne [facility] 2022-03-23 2022-03-23 Outpatient R [facility] [id number] Univers 11:00:00 11:00:00 CODY evangelista [facility] 2022-03-23 2022-03-23 Telephone [facility] 1.2.840.114 [id number] Univers 00:00:00 00:00:00 Cody RAMESH 350.1.13.10 i ty of [facility] 4.2.7.2.[place] [id number] Ct dical SAMY 044 [facility] 2022-03-21 2022-03-21 Telephone Shukri [facility] 1.2.351.348 [id number] Univers 00:00:00 00:00:00 [facility] 350.1.13.10 it y of [facility] 4.2.7.2.686 Willy as VERONICA?BLEA [id number] [facility] MILLER [address] [facility] OFFICE [facility] 2022-03-19 2022-03-19 Patient [facility] 1.2.840.114 [id number] Univers 00:00:00 00:00:00 Secure Msg Cody RAMESH 350.1.13.10 ity of [facility] 4.2.7.2.[place] PROFESS[place] [id number] Ct dical NAL [address] [place] [address] 2022-03-19 2022-03-19 Patient [facility] 1.2.840.114 [id number] Univers 00:00:00 00:00:00 Secure Msg Cody RAMESH 350.1.13.10 ity [facility] [place] [phone] Ct dicdanisha [facility] [address]44 [facility] 2022-03-19 2022-03-19 Patient [facility] 1.2.840.114 [id number] Univers 00:00:00 00:00:00 Secure Msg Cody RAMESH 350.1.13.10 ity [facility] [place] [phone] Ct dical N[place] 044 [facility] 2022-03-17 2022-03-17 Refill [facility] 1.2.840.114 [id number] Univers 00:00:00 00:00:00 Cody RAMESH 350.1.13.10 i ty of [facility] [place] [phone] [address] dicdanisha PABLO [address] [facility] 2022-03-17 2022-03-17 [facility] 1.2.840.114 [id number] Univers 00:00:00 00:00:00 Cody RAMESH 350.1.13.10 i ty [facility] [place] [id number] [place] PABLO 044 [facility] 2022-03-15 2022-03-15 Telephone [facility] 1.2.840.114 [id number] Univers 00:00:00 00:00:00 Cody RAMESH 350.1.13.10 i ty [facility] [place] [phone] [place] PABLO 044 [facility] 2022-03-15 2022-03-15 [facility] 1.2.840.114 [id number] Univers 00:00:00 00:00:00 Cody RAMESH 350.1.13.10 i ty [facility] [place] [phone] [place]LO 044 [facility] 2022-03-14 2022-03-14 Refill [facility]ristyUN[facility] 1.2.840.114 [id number] Univers 00:00:00 00:00:00 Cody RAMESH 350.1.13.10 i ty of [facility] 4.2.7.2.[place] PROF[place] [phone] Ct aurora PABLO 231 [facility] 2022-03-14 2022-03-14 Telephone [facility] 1.2.929.199 [id number] Univers 00:00:00 00:00:00 [facility] 350.1.13.10 it y of [facility] 4.2.7.2.686 Willy as VERONICA?BLEA [phone] Ct aurora MILLER 198 [facility] 2022-03-13 2022-03-13 Outpatient R [facility] [id number] Univers 15:30:00 16:55:46 ITZ evangelista [facility] 2022-03-13 2022-03-13 Office [facility] 1.2.840.114 [id number] Univers 15:30:00 16:55:46 Visit Itz [facility] 350.1.13.10 it y of [facility] 4.2.7.2.686 Willy as VERONICA?BLEA [phone] Ct aurora MILLER 198 [facility] 2022-03-13 2022-03-13 Outpatient Armida WATT [facility] [id number] Univers 15:30:00 16:55:46 ITZ [facility] 2022-03-13 2022-03-13 Outpatient R SHUKRI [facility] [id number] Univers 15:30:00 15:30:00 ITZ [facility] 2022-03-05 2022-03-05 Telephone [facility] 1.2.540.165 [id number] Univers 00:00:00 00:00:00 Itz Covarrubias [facility] 350.1.13.10 it y of [place] 4.2.7.2.686 Willy as VERONICA?BLEA [phone] Ct dinadanisha MILLER [address] [place] [address] 2022-03-03 2022-03-03 Nurse CAROLINE Arias 1.2.840.114 [id number] Univers 00:00:00 00:00:00 Triage Robyn Deras MALACHI 350.1.13.10 it y of [facility] 4.2.7.2.686 Willy as [id number] [address] 2022-02-28 2022-02-28 Telephone [facility] 1.2.840.114 [id number] Univers 00:00:00 00:00:00 Cody RAMESH 350.1.13.10 i ty of [place] [phone] Ct dinadanisha PABLO 044 [facility] 2022-02-27 2022-02-27 Outpatient Armida WATT [facility] [id number] Univers 16:00:00 17:14:05 [facility] 2022-02-27 2022-02-27 Office [facility]UN[facility] 1.2.840.114 [id number] Univers 16:00:00 17:14:05 Visit Itz [facility] 350.1.13.10 it y of [place] 4.2.7.2.686 Willy as VERONICA?BLEA [id number] Ct aurora MILLER 198 [facility] OFFICE [facility] 2022-02-27 2022-02-27 Outpatient Armida SHUKRI [facility] [id number] Univers 16:00:00 17:14:05 ITZ itryanne [facility] 2022-02-27 2022-02-27 Outpatient Armida [facility] [id number] Univers 16:00:00 16:00:00 ITZ itryanne [facility] 2022-02-27 2022-02-27 Telephone [facility] 1.2.840.114 [id number] Univers 00:00:00 00:00:00 Cody RAMESH 350.1.13.10 i ty of [place] [id number] Ct aurora PABLO 044 [facility] 2022-02-27 2022-02-27 Telephone [facility] 1.2.840.114 [id number] Univers 00:00:00 00:00:00 Cody RAMESH 350.1.13.10 i ty of [place].2.[place] [id number] Ct aurora PABLO 044 [facility] 2022-02-21 2022-02-21 Telephone [facility]UN[facility] 1.2.932.866 [id number] Univers 00:00:00 00:00:00 Itz Covarrubias HEALTH 350.1.13.10 it y of [place] 4.2.7.2.686 Willy as VERONICA?BLEA [id number] Ct aurora MILLER 198 [facility] OFFICE [facility] 2022-02-19 2022-02-19 Orders Doctor CAROLINE 1.2.840.114 [id number] Univers 00:00:00 00:00:00 Only Unassigned, MALACHI 350.1.13.10 ity of [place] [facility] 4.2.7.2.686 Willy as [phone] [address] 2022-02-15 2022-02-15 Telephone MelonyUNION COUNTY [facility] 1.2.840.114 [id number] Univers 00:00:00 00:00:00 Gurpreet L HEALTH 350.1.13.10 it y of [facility] 4.2.7.2.686 Willy as VERONICA?BLEA [phone] Me dical ANGELA 198 [facility] OFFICE [facility] 2022-02-09 2022-02-09 Outpatient R PARKERJENNY [facility] [id number] Univers 11:00:00 11:00:00 [facility] 2022-02-09 2022-02-09 Outpatient R JAMAALEUSEBIOJENNY [facility] [id number] Univers 11:00:00 11:00:00 [facility] 2022-02-09 2022-02-09 Outpatient R [facility]SELECT [facility] [id number] Univers 11:00:00 11:00:00 [facility] 2022-02-08 2022-02-08 Imm/Inj Vaccine, [facility] 1.2.840.114 [id number] Univers 15:00:00 15:10:00 Visit Rhett Cheema 350.1.13 .10 Jose [facility] 4.2.[place].2.[place] [id number] Me dicdanisha PABLO 044 [facility] 2022-02-08 2022-02-08 Outpatient R ANETTE [facility] [id number] Univers 15:00:00 15:00:00 RHETT [facility] 2022-01-31 2022-01-31 Telephone [facility]UNION [facility] 1.2.840.114 [id number] Univers 00:00:00 00:00:00 Gurpreet Videoflow 350.1.13.10 it y of [facility] 4.2.7.2.686 Willy as VERONICA?BLEA [id number] Me dicdanisha MILLRE 198 [facility] 2022-01-29 2022-01-29 Outpatient R MELONYSELECT MEDICAL [facility] [id number] Univers 14:45:00 15:31:55 [facility] [place] 2022-01-29 2022-01-29 Telephone [facility]UN[facility] 1.2.840.114 [id number] Univers 00:00:00 00:00:00 GurpreetMems-ID 350.1.13.10 it y of [facility] 4.2.7.2.686 Willy as VERONICA?BLEA [phone] Me aurora MILLER 198 [facility] OFFICE [facility] 2022-01-26 2022-01-26 Telephone Melony [facility] 1.2.840.114 [id number] Univers 00:00:00 00:00:00 Gurpreet Guaman [facility] 350.1.13.10 it y of [place] 4.2.7.2.686 Willy as VERONICA?BLEA [id number] Me aurora MILLER 198 [facility] OFFICE [facility] 2022-01-22 2022-01-22 Outpatient R MELONY [facility] [id number] Univers 14:45:00 15:17:19 GURPREET evangelista [facility] 2022-01-22 2022-01-22 Office Itz Watt [facility] 1.2.840.114 [id number] Univers 14:45:00 15:17:19 Visit TyGurpreet liriano [facility] 350.1.13.10 ity of [place] 4.2.7.2.686 Willy as VERONICA?BLEA [phone] Me aurora MILLER 198 [facility] OFFICE [facility] 2022-01-22 2022-01-22 Outpatient R TYSELECT [facility]ICAL [facility] [id number] Univers 14:45:00 15:17:19 GURPREET evangelista [facility] 2022-01-22 2022-01-22 Office Itz Watt [facility] 1.2.840.114 [id number] Univers 14:45:00 15:17:19 Visit Gurpreet Ty [facility] 350.1.13.10 ity of [place] 4.2.7.2.686 Willy as VERONICA?BLEA [phone] Me aurora MILLER 198 [facility] OFFICE [facility] 2022-01-22 2022-01-22 Orders Doctor CAROLINE 1.2.840.114 [id number] Univers 00:00:00 00:00:00 Only Unassigned, MALACHI 350.1.13.10 ity of [place] [facility] 4.2.7.2.686 Willy as [phone] [address] 2022-01-15 2022-01-15 Office Shukri [facility] 1.2.840.114 [id number] Univers 13:30:00 13:45:00 Visit Itz Covarrubias [facility] 350.1.13.10 it y of [facility] 4.2.7.2.686 Willy as VERONICA?BLEA [phone] Ct dical ANGELA 198 [facility] OFFICE [facility] 2022-01-15 2022-01-15 Outpatient R SHUKRI [facility] [id number] Univers 13:30:00 13:30:00 ITZ ity of [facility] 2022-01-10 2022-01-10 Telephone [facility] 1.2.840.114 [id number] Univers 00:00:00 00:00:00 [facility] Powered Now 350.1.13.10 it y of [place] 4.2.7.2.686 Willy as VERONICA?BLEA [id number] Ct dical ANGELA 198 [facility] OFFICE [facility] 2022-01-08 2022-01-08 Telephone [facility] 1.2.840.114 [id number] Univers 00:00:00 00:00:00 [facility] [employer] Now 350.1.13.10 it y of [place] 4.2.7.2.686 Willy as VERONICA?BLEA [phone] Ct dical ANGELA 198 [facility] 2021-12-28 2021-12-28 Refhenny AragonUNION COUNTY GENERAL [facility] 1.2.840.114 [id number] Univers 00:00:00 00:00:00 Nelson RAMESH 350.1.13.10 i ty of [place].2.7.2.[place] [id number] Me dical NAL 044 [facility] 2021-12-26 2021-12-26 Telephone [facility] 1.2.840.114 [id number] Univers 00:00:00 00:00:00 Gurpreet Powered Now 350.1.13.10 it y of [facility] 4.2.7.2.686 Willy as SPECIALTI [phone] Me dical ES 198 [facility] 2021-12-20 2021-12-20 Patient Caro [facility] 1.2.840.114 [id number] Univers 00:00:00 00:00:00 Secure Msg Cody RAMESH 350.1.13.10 ity of [place].2.7.2.686 [place] PROF[place] [phone] Ct dical NAL 044 [facility] 2021-12-20 2021-12-20 Telephone [facility] 1.2.840.114 [id number] Univers 00:00:00 00:00:00 Cody RAMESH 350.1.13.10 i ty of [place] 4.2.7.2.686 [place] [id number] Ct dical NAL 231 [facility] 2021-12-18 2021-12-18 Telephone [facility] 1.2.572.292 [id number] Univers 00:00:00 00:00:00 Itz S [facility] 350.1.13.10 it y of [place] 4.2.7.2.686 Willy as VERONICA?BLEA [phone] Ct aurora MILLER 198 [facility] 2021-12-15 2021-12-15 Outpatient R [facility]SELECT [facility] [id number] Univers 09:30:00 23:59:00 [facility] 2021-12-15 2021-12-15 Hospital [facility] 1.2.840.114 [id number] Univers 09:30:00 23:59:00 Encounter Gurpreet Guaman [facility] 350.1.13.10 ity of [facility] 4.2.7.2.686 Willy as VERONICA?BLEA [phone] Ct aurora MILLER 809 [facility] 2021-12-15 2021-12-15 Assembler Se[employer] Lab, Ang - [facility] 1.2.840.1 14 [id number] Univers 10:45:00 11:00:00 Visit Gurpreet Ty [facility] 350.1.13.10 ity of [place] 4.2.7.2.686 Willy as VERONICA?BLEA [phone] Ct aurora MILLER 353 [facility] 2021-12-15 2021-12-15 Outpatient R [facility] [id number] Univers 10:45:00 10:48:46 [facility] 2021-12-15 2021-12-15 Outpatient R MELONY [facility] [id number] Univers 09:00:00 09:59:52 GURPREET evangelista [facility] 2021-12-15 2021-12-15 Office [facility] 1.2.533.993 [id number] Univers 09:00:00 09:59:52 Visit Gurpreet Guaman [facility] 350.1.13.10 it y of [facility] 4.2.7.2.686 Willy as VERONICA?BLEA [phone] Ct dical ANGELA [address] [place] [address] OFFICE [facility] 2021-12-15 2021-12-15 Outpatient R MELONY [facility] [id number] Univers 09:00:00 09:59:52 GURPREET evangelista [facility] 2021-12-15 2021-12-15 Office [facility] 1.2.896.237 [id number] Univers 09:00:00 09:59:52 Visit [facility] 350.1.13.10 it y of [place] 4.2.7.2.686 Willy as VERONICA?BLEA [phone] Ct dinadanisha MILLER [address] [place] [address] 2021-12-15 2021-12-15 Outpatient R [facility] [id number] Univers 09:00:00 09:00:00 GURPREET evangelista [facility] 2021-12-15 2021-12-15 Outpatient R [facility]SELECT [facility] [id number] Univers 09:00:00 09:00:00 GURPREETDESIRAE evangelista [facility] 2021-12-08 2021-12-08 Outpatient R CARO [facility] [id number] Univers 09:00:00 11:08:33 CODY evangelista [facility] 2021-12-08 2021-12-08 Telemedici [facility] 1.2.840.114 [id number] Univers 09:00:00 11:08:33 ne Visit Cody RAMESH 350.1.13.10 ity of [place].2.[place] PROFESS[place] [phone] Ct dical SAMY 044 [facility] 2021-12-08 2021-12-08 Outpatient R [facility] [id number] Univers 09:00:00 11:08:33 CODY evangelista [facility] 2021-12-08 2021-12-08 Outpatient R CARO [facility] [id number] Univers 09:00:00 11:08:33 CODY evangelista [facility] 2021-12-08 2021-12-08 Telephone [facility] 1.2.840.114 [id number] Univers 00:00:00 00:00:00 Cody RAMESH 350.1.13.10 i ty of [place].2.[place]ESS[place] [phone] Ct dic[address] 2021-12-08 2021-12-08 Telephone [facility] 1.2.840.114 [id number] Univers 00:00:00 00:00:00 Cody RAMESH 350.1.13.10 i ty of [facility] 4.2.7.2.[place] PROFESS[place] [phone] Ct dina[address] 2021-12-06 2021-12-06 [facility] 1.2.840.114 [id number] Univers 00:00:00 00:00:00 Cody RAMESH 350.1.13.10 i ty of [facility] 4.2.7.2.686 [place] [id number] [address] 2021-11-24 2021-11-24 Outpatient R [facility] [id number] Univers 09:45:00 09:45:00 GURPREET evangelista [facility] 2021-11-24 2021-11-24 Office [facility]UN[facility] 1.2.881.693 [id number] Univers 09:45:00 09:45:00 Visit Gurpreet [facility] 350.1.13.10 it y of [facility] 4.2.7.2.686 Willy as VERONICA?BLEA [phone] [address] OFFICE [facility] 2021-11-24 2021-11-24 Outpatient R [facility] [id number] Univers 09:45:00 09:43:13 [facility] 2021-11-24 2021-11-24 Outpatient R MELONY [facility] [id number] Univers 09:45:00 09:43:13 [facility] 2021-11-14 2021-11-14 Telephone [facility] 1.2.840.114 [id number] Univers 00:00:00 00:00:00 Cody RYAN 350.1.13.10 it y of [place] 4.2.7.2.686 [facility] as PROFESSIO [id number] [address] OFFICE BUILDING ONE 2021-11-09 2021-11-09 Emergency X [facility] ERT [id number] Univers 10:45:00 12:02:00 MAXIMILIAN [facility] 2021-11-09 2021-11-09 Emergency [facility]UN[facility] 1.2.711.345 [id number] Univers 10:45:00 12:02:00 Maximilian RAMESH 350.1.13.10 i ty of [place] 4.2.7.2.686 [facility] [id number] [address] 2021-11-09 2021-11-09 Emergency X [facility]UN[facility] ERT [id number] Univers 10:45:00 12:02:00 MAXIMILIAN ryanne [facility] 2021-11-09 2021-11-09 Telephone [facility] 1.2.840.114 [id number] Univers 00:00:00 00:00:00 Cody RAMESH 350.1.13.10 i ty of [place] 4.2.7.2.686 [facility] PROFESSIO [phone] [address] 2021-11-07 2021-11-07 Outpatient R CARO [facility] [id number] Univers 11:30:00 11:30:00 CODY melryanne [facility] 2021-11-07 2021-11-07 Assembler Seat 2, Adc Lab [facility] 1.2.840.114 [id number] Univers 11:30:00 11:30:00 Visit Cody Dwyer 350.1.13.10 ity [facility] 4.2.7.2.686 [place] [id number] Ct dical NAL 353 [facility] 2021-11-07 2021-11-07 Office [facility] 1.2.840.114 [id number] Univers 11:00:00 11:00:00 Visit Cody RAMESH 350.1.13.10 i ty of [facility] 4.2.7.2.686 [place] PROFESS[place] [id number] Ct dical NAL 044 [facility] 2021-11-07 2021-11-07 Outpatient R [facility]SELECT [facility] [id number] Univers 11:00:00 10:19:29 CODY [facility] 2021-10-13 2021-10-13 Outpatient R [facility]SELECT [facility] [id number] Univers 08:30:00 09:17:02 [facility] 2021-10-13 2021-10-13 [facility] 1.2.648.431 [id number] Univers 08:30:00 09:17:02 Visit [facility] 350.1.13.10 it y david RAMESH 4.2.7.2.686 Willy as VERONICA?BLEA [id number] Ct aurora MILLER [address] [place] [address] OFFICE [facility] 2021-10-13 2021-10-13 Outpatient R [facility] [id number] Univers 08:30:00 09:17:02 [facility] 2021-10-13 2021-10-13 Outpatient R T[facility]SELECT [facility] [id number] Univers 08:30:00 09:17:02 [facility] 2021-10-11 2021-10-11 Outpatient R [facility] [id number] Univers 13:30:00 13:30:00 [facility] 2021-10-11 2021-10-11 Outpatient R [facility]SELECT [facility] [id number] Univers 13:30:00 13:30:00 [facility] 2021-10-06 2021-10-06 Refill [facility] 1.2.840.114 [id number] Univers 00:00:00 00:00:00 Cody RAMESH 350.1.13.10 i ty of [place] PROF[place] [id number] Ct dic[address] 2021-09-29 2021-09-29 Emergency X [facility] ERT [id number] Univers 00:44:00 02:37:00 MELITA ity [facility] 2021-09-29 2021-09-29 Emergency [facility] 1.2.840.114 [id number] Univers 00:44:00 02:37:00 Melita GADIEL 350.1.13.10 i ty of [place] 4.2.7.2.[place] GRA[place] KNOB [id number] [facility] [address] 2021-09-11 2021-09-11 Outpatient R [facility] [id number] Univers 10:37:44 23:59:00 CODY ity [facility] 2021-09-11 2021-09-11 [facility] 1.2.840.114 [id number] Univers 10:37:44 23:59:00 Encounter Coyd RAMESH 350.1.13.10 ity of [place].2.7.2.[place] CAMPUS [id number] [facility] [address] 2021-09-11 2021-09-11 Refill [facility] 1.2.840.114 [id number] Univers 00:00:00 00:00:00 Cody RAMESH 350.1.13.10 i ty of [place] 4.2.7.2.[place] PROF[place] [id number] Ct dicar NAL 044 [facility] 2021-08-29 2021-08-29 Orders Doctor CAROLINE 1.2.840.114 [id number] Univers 00:00:00 00:00:00 Only Unassigned, MALACHI 350.1.13.10 ity of [place] [facility] 4.2.7.2.686 Willy as [id number] [facility] [address] 2021-08-28 2021-08-28 Telephone [facility] 1.2.840.114 [id number] Univers 00:00:00 00:00:00 Cody Ramesh 350.1.13.10 i ty of [place].2.[place] Profess[place] [id number] [address] 2021-08-28 2021-08-28 Telephone [facility] 1.2.840.114 [id number] Univers 00:00:00 00:00:00 Cody Ramesh 350.1.13.10 i ty of [place] 4[place].2.[place] Profess[place] [id number] [address] 2021-08-28 2021-08-28 Orders Doctor CAROLINE 1.2.840.114 [id number] Univers 00:00:00 00:00:00 Only Unassigned, MALACHI 350.1.13.10 ity of [place] [facility] 4.2.7.2.686 Willy as [id number] [address] 2021-08-24 2021-08-24 Telemedici [facility] 1.2.840.114 [id number] Univers 07:52:00 11:41:34 ne Visit Cody Ramesh 350.1.13.10 ity of [place] 4[place]2.[place].2.[place] Profess[place] [id number] [address] 2021-08-24 2021-08-24 Outpatient R [facility] 1035 [id number] Univers 09:00:00 09:00:00 CODY ity of [facility] 2021-08-24 2021-08-24 Telephone [facility] 1.2.840.114 [id number] Univers 00:00:00 00:00:00 Cody Ramesh 350.1.13.10 i ty of [place].2.[place] Profess[place] [id number] [address] 2021-08-21 2021-08-21 Orders Doctor CAROLINE 1.2.840.114 [id number] Univers 00:00:00 00:00:00 Only Unassigned, MALACHI 350.1.13.[address] [facility] 4.2.7.2.686 Willy as [phone] [facility] [address] 2021-08-21 2021-08-21 Telephone Lucykristy [facility] 1.2.840.114 [id number] Univers 00:00:00 00:00:00 Cody Ramesh 350.1.13.10 i ty of [place].2.[place].2.[place] Profess[place] [phone] Ct dical nal 0[address] [facility] 2021-08-15 2021-08-15 Transition Gabriel Rico 1.2.840.114 [id number] Univers 00:00:00 00:00:00 of Care Tono Glovery 350.1.13.10 ity of [place].2.7.2.686 [place] [id number] [facility] [address] 2021-08-12 2021-08-13 Outpatient X KIM [facility] LUISA [id number] Univers 09:57:00 15:12:00 CONSTANTINE evangelista [facility] 2021-08-12 2021-08-13 Emergency Reyna Watt [facility] 1.2.840 .114 [id number] Univers 09:57:00 15:12:00 Constantine Alvarez 350.1.13.10 ity of [place] 4[place].2.[place] Lavina [id number] [facility] [address] 2021-08-09 2021-08-09 Emergency X LOUIE [facility] ERT [id number] Univers 21:33:00 23:08:00 GUILLERMINA evangelista [facility] 2021-08-09 2021-08-09 Emergency X LOUIE [facility] ERT [id number] Univers 21:33:00 23:08:00 GUILLERMINA evangelista [facility] 2021-08-09 2021-08-09 Emergency X LOUIE [facility] ERT [id number] Univers 21:33:00 23:08:00 GUILLERMINA [facility] 2021-08-09 2021-08-09 Emergency Louie [facility] 1.2.840.114 [id number] Univers 21:33:00 23:08:00 Guillermina Ramesh [id number] [id number] [id number] [facility] [address] 2021-08-09 2021-08-09 Orders Doctor CAROLINE 1.2.840.114 [id number] Univers 00:00:00 00:00:00 Only Unassigned, MALACHI [id number] [facility] [place] [facility] [id number] Willy as [phone] [facility] [address] 2021-08-04 2021-08-04 Orders Doctor CAROLINE 1.2.840.114 [id number] Univers 00:00:00 00:00:00 Only Unassigned, MALACHI [id number] [facility] [place] [facility] [id number] Willy as [phone] [address] 2021-08-01 2021-08-01 Patient Yakov [facility] 1.2.840.114 [id number] Univers 00:00:00 00:00:00 Outreach Barbara Ramesh [id number] [id number] [id number] Ct dical [address] 2021-07-19 2021-07-19 Outpatient R MELONY [facility] [id number] Univers 09:00:00 10:31:58 GURPREET [facility] 2021-07-19 2021-07-19 Outpatient Armida TY [facility] [id number] Univers 09:00:00 10:31:58 GURPREET [facility] 2021-07-19 2021-07-19 Outpatient R MELONY [facility] [id number] Univers 09:00:00 10:31:58 GURPREET [facility] 2021-07-19 2021-07-19 Ancillary Roxana Nunn [facility] 1 .2.840.114 [id number] Univers 08:50:11 10:31:58 Visit Gurpreet Ty [id number] [id number] [phone] [place] dical nal [address] [facility] 2021-07-13 2021-07-13 Outpatient R ANETTE [facility] [id number] Univers 10:30:00 10:28:36 RHETT ryanne [facility] 2021-07-13 2021-07-13 Outpatient R ANETTE [facility] [id number] Univers 10:30:00 10:28:36 RHETT ryanne [facility] 2021-07-13 2021-07-13 Outpatient Armida CHEEMA [facility] [id number] Univers 10:30:00 10:28:36 RHETT [facility] 2021-07-13 2021-07-13 Imm/Inj Nurse, Adc Pob Immunization [facility] 1.2.840.114 [id number] Univers 10:28:30 10:28:36 Visit Rhett Cheema 350.1.13 .10 [id number] [phone] [place] dical nal 421 [facility] 2021-07-13 2021-07-13 Telephone [facility] 1.2.840.114 [id number] Univers 00:00:00 00:00:00 Cody Ramesh [id number] [id number] [phone] [place] dical nal 044 [facility] 2021-07-13 2021-07-13 Telephone [facility] 1.2.840.114 [id number] Univers 00:00:00 00:00:00 Cody Ramesh [id number] [id number] [phone] dical nal 044 [facility] 2021-07-12 2021-07-12 [facility].2.840.114 [id number] Univers 00:00:00 00:00:00 Outreach Barbara Ramesh [id number] [id number] [phone] Ct dical nal 044 [facility] 2021-07-12 2021-07-12 Patient Yakov, [facility] 1.2.840.114 [id number] Univers 00:00:00 00:00:00 Outreach Barbara Guaman Gadiel [id number] [id number] [phone] Ct dical nal 044 [facility] 2021-07-07 2021-07-07 Patient Caro [facility] 1.2.840.114 [id number] Univers 00:00:00 00:00:00 Secure Msg Cody Gadiel [id number] [id number] [phone] Ct dical nal 044 [facility] 2021-07-05 2021-07-05 Assembler Seat 2, Adc Lab [facility] 1.2.840.114 [id number] Univers 15:11:31 15:26:31 Visit Cody Dwyer [id number] [id number] [phone] Ct dicar nal 353 [facility] 2021-07-05 2021-07-05 Nurse Med, Medicare Wellness [facility] 1.2.840.114 [id number] Univers 13:54:53 15:05:22 Visit Cody Dwyer 350.1.13.10 [id number] [phone] Ct dical nal 044 [facility] 2021-07-05 2021-07-05 Office [facility] 1.2.840.114 [id number] Univers 12:56:20 15:03:52 Visit Cody Ramesh 350.1.13.10 [id number] [phone] Ct dical nal 044 [facility] 2021-07-05 2021-07-05 Office [facility] 1.2.840.114 [id number] Univers 12:56:20 13:16:20 Visit Cody Ramesh 350.1.13.10 [id number] [phone] Ct dical nal 044 [facility] 2021-07-05 2021-07-05 Outpatient R JAMAALMARINAKRISTY, [facility] [id number] Univers 13:00:00 13:00:00 CODY evangelista [facility] 2021-07-05 2021-07-05 Orders Doctor VELAZQUEZ 1.2.840.114 [id number] Univers 00:00:00 00:00:00 Only Unassigned, MALACHI 350.1.13.10 [facility] [id number] [place] as [phone] [address] 2021-07-03 2021-07-03 [facility] 1.2.840.114 [id number] Univers 10:52:55 11:22:22 Visit Tanisha Ramesh 350.1.13.10 ity [facility] [id number] [phone] Ct dical nal 059 [facility] 2021-07-03 2021-07-03 [facility] [id number] Univers 10:40:00 10:40:00 TANISHA rowe [facility] 2021-06-22 2021-06-23 Outpatient R JAMAALEUSEBIOJENNYSELECT [facility] [id number] Univers 10:40:00 14:23:56 CODY evangelista [facility] 2021-06-22 2021-06-23 Outpatient R CARO [facility] [id number] Univers 10:40:00 14:23:56 CODY evangelista [facility] 2021-06-22 2021-06-23 [facility] [id number] Univers 10:40:00 14:23:56 CODY evangelista [facility] 2021-05-31 2021-05-31 Outpatient [facility] [id number] Univers 09:00:00 09:00:00 TANISHA rowe [facility] 2021-05-29 2021-05-29 Orders Doctor VELAZQUEZ 1.2.840.114 [id number] Univers 00:00:00 00:00:00 Only Unassigned, MALACHI 350.1.13.10 [facility] [id number] [place] [phone] [address] 2021-04-11 2021-04-11 Outpatient R TIFFANY, [facility] [id number] Univers 09:00:00 09:54:14 NORTH ity [facility] 2021-04-11 2021-04-11 Outpatient R TIFFANY, [facility] [id number] Univers 09:00:00 09:54:14 NORTH ity [facility] 2021-04-11 2021-04-11 Outpatient R TIFFANY, [facility] [id number] Univers 09:00:00 09:54:14 NORTH ity [facility] 2021-03-14 2021-03-14 Outpatient R EDDONI, [facility] [id number] Univers 08:40:00 08:40:00 CODY [facility] 2021-02-21 2021-02-21 Outpatient R PARKERNG, [facility] [id number] Univers 16:45:00 16:45:00 CODY [facility] 2021-02-21 2021-02-21 Outpatient R PARKERNG, [facility] [id number] Univers 16:45:00 16:45:00 CODY [facility] 2021-02-21 2021-02-21 Outpatient R PARKERNG, [facility] [id number] Univers 16:45:00 16:45:00 CODY y [facility] 2021-02-08 2021-02-08 Outpatient R DIONICIO [facility] [id number] Univers 16:10:00 07:27:42 SHAD y [facility] 2021-02-08 2021-02-08 Outpatient R DIONICIO [facility] [id number] Univers 16:10:00 07:27:42 SHAD ity [facility] 2021-02-08 2021-02-08 Outpatient R DIONICIO [facility] [id number] Univers 16:10:00 07:27:42 SHAD ity [facility] 2021-01-11 2021-01-11 Outpatient Armida GREENBERG [facility] [id number] Univers 16:20:00 16:08:37 SHAD ryanne [facility] 2021-01-11 2021-01-11 Outpatient R DIONICIO [facility] [id number] Univers 16:20:00 16:08:37 SHAD ryanne [facility] 2021-01-05 2021-01-05 Outpatient SKIP BURTON [facility] [id number] Univers 08:00:00 08:00:00 SKIP HAWLEY ryanne [facility] 2020-12-28 2020-12-28 Outpatient SKIP BURTON [facility] [id number] Univers 07:38:16 23:59:00 CHANDANSKIP ryanne [facility] 2020-12-12 2020-12-12 Outpatient Armida ROBERTSOzzy SKIP [facility] [id number] Univers 11:00:00 11:00:00 SKIP HAWLEY [facility] 2020-11-30 2020-11-30 Outpatient Armida JAMAALMARINAKRISTY [facility] [id number] Univers 13:00:00 13:00:00 CODY [facility] 2020-08-31 2020-08-31 Outpatient Armida DE LOS SANTOS [facility] [id number] Univers 09:20:00 09:20:00 TANISHA tonja o f [facility] 2020-08-18 2020-08-18 Outpatient R DEMETRIA [facility] [id number] Univers 13:20:00 13:20:00 BARRIE [facility] 2020-06-14 2020-06-14 Outpatient R DEMETRIA [facility] [id number] Univers 08:40:00 08:40:00 BARRIE [facility] 2020-03-31 2020-03-31 Outpatient R DEMETRIA [facility] [id number] Univers 08:30:00 08:30:00 BARRIE [facility] 2020-03-10 2020-03-10 Outpatient R DEMETRIA [facility] [id number] Univers 08:40:00 08:40:00 BARRIESURY evangelista [facility] 2020-02-29 2020-02-29 Outpatient R DANIEL [facility] [id number] Univers 09:00:00 09:00:00 TANISHA evangelista o f [facility] 2020-01-21 2020-01-21 Outpatient R DEMETRIA [facility] [id number] Univers 12:20:00 12:20:00 BARRIE ity [facility] 2019-12-31 2019-12-31 Outpatient R ABNER [facility] [id number] Univers 08:40:00 08:40:00 TUYET tonja [facility] 2019-12-28 2019-12-28 [facility] [id number] Univers 09:00:00 09:00:00 ZHANE [facility] 2019-12-10 2019-12-10 Outpatient R [facility] [id number] Univers 13:00:00 14:24:38 [facility]-11-26 2019-11-26 Outpatient R LUNA [facility] [id number] Univers 09:15:00 10:43:36 ZHANE [facility] 2019-11-12 2019-11-17 Inpatient X [facility] [id number] Univers 14:47:43 14:42:00 [facility] 2019-08-28 2019-08-28 Outpatient Armida [facility] [id number] Univers 11:00:00 11:35:09 TANISHA evangelista o f [facility] Results This patient has no known results.
[2023-02-19] MEDS: CEFAZOLIN 1 GM in NA CHLORIDE 0.9% 50 ML IVPB SCH (16:12)
[2023-02-19] MEDS ORDERED: GLUCAGON 1 MG/VIAL IM PRN (16:18)
[2023-02-19] MEDS ORDERED: D10W 250 ML BAG IV PRN (16:22)
--- NOTE | 2023-02-19 16:23 | P.CNS ---
Date of Consult: 02/19/23 Reason for Consult: Medical management. Requesting Physician: Anjel Saleh Chief Complaint: Left knee pain. History of Present Illness: Patient is a 62-year-old female with a past medical history significant for hypertension, HLD, COPD, osteoarthritis, DM 2 who presents for a planned procedure with her orthopedic surgeon. Patient's been having left knee osteoarthritis for quite some time and has attempted conservative measures without any relief in symptoms. Patient rated left knee pain before procedure as 7/10 in severity and described pain as aching in quality. Patient denies any other signs or symptoms. Symptoms are aggravated by movement or relieved by nothing. Patient had a left knee replacement. Patient tolerated procedure. Patient in bed resting comfortably. Allergies pneumococcal vaccine [From Prevnar 13 (PF)] Allergy (Verified 02/07/23 09:47) Boils Home Medications: Allopurinol 100 mg PO DAILY 02/07/23 Aspirin [Low Dose Aspirin EC] 81 mg PO DAILY 02/07/23 Budesonide/Formoterol Fumarate [Budesonide-Formoterol 160-4.5] 2 puff IH BID 02/07/23 Carvedilol [Coreg] 25 mg PO BID 02/07/23 Duloxetine HCl [Cymbalta] 60 mg PO DAILY 02/07/23 Fluticasone Propionate [Flonase Allergy Relief] 1 spray NS BID 02/07/23 Furosemide [Lasix] 40 mg PO DAILY 02/07/23 Gabapentin [Neurontin] 600 mg PO TID 02/07/23 Glimepiride [Amaryl] 2 mg PO DAILY 02/07/23 Hydralazine HCl 50 mg PO BID 02/07/23 Hydrocodone Bit/Acetaminophen [Hydrocodon-Acetaminophn 10-325] 1 each PO Q6HP PRN 02/07/23 Indomethacin 50 mg PO DAILY 02/07/23 Ipratropium [place] 2 spray NS BID 02/07/23 Lidocaine 5% [Lidocaine HCl] 1 appl TOP BIDP PRN 02/07/23 Metformin HCl [Glucophage] 500 mg PO BIDWM 02/07/23 Omeprazole [Prilosec] 40 mg PO DAILY 02/07/23 Potassium Chloride [K-Dur] 20 meq PO DAILY 02/07/23 - Past Medical/Surgical History Diabetic: Yes -: COPD -: Hypertension -: diabetes -: osteoarthritis -: rheumatoid arthritis -: hand surgery -: 2 c-sections -: hysterectomy -: cholecystectomy - Family History Mother Medical History: Hypertension, Diabetes, Other (see notes) Notes: COPD Father Medical History: Cancer Brother Medical History: Cancer Sister Medical History: Other (see notes) Notes: AIDS - Social History Smoking Status: Never smoker Alcohol use: No CD- Drugs: No Caffeine use: Yes Place of Residence: Home Review of Systems General: Unremarkable Eyes: Unremarkable ENT: Unremarkable Respiratory: Unremarkable Cardiovascular: Unremarkable Gastrointestinal: Unremarkable Genitourinary: Unremarkable Musculoskeletal: Other (Left knee pain ) Integumentary: Unremarkable Neurological: Unremarkable Lymphatics: Unremarkable Physical Examination Temp Pulse Resp BP Pulse Ox 98 F 57 16 103/59 L 97 02/19/23 15:29 02/19/23 16:00 02/19/23 16:00 02/19/23 16:00 02/19/23 16:00 General: Alert, In no apparent distress, Oriented x3, Cooperative HEENT: Atraumatic, PERRLA, Mucous membr. moist/pink, EOMI, Sclerae nonicteric Neck: Supple, 2+ carotid pulse no bruit, No LAD, Without JVD or thyroid abnormality Respiratory: Clear to auscultation bilaterally, Normal air movement Cardiovascular: Regular rate/rhythm, Normal S1 S2, Edema Capillary refill: <2 Seconds Gastrointestinal: Normal bowel sounds, Soft and benign, No tenderness Musculoskeletal: No clubbing, No tenderness Integumentary: No rashes, No breakdown, No significant lesion Neurological: Normal speech, Normal tone, Normal affect Lymphatics: No axilla or inguinal lymphadenopathy Laboratory Data (last 24 hrs) 02/19/23 07:59: PT 10.6, INR 0.96, APTT 30.0 Conclusions/Impression: --Left knee pain\osteoarthritis. Status post right knee total arthroplasty. Surgery on board. Patient on CPM machine. PT eval and treat. We will further recommendation from orthopedic surgeon. Continue supportive care. --DM2 with neuropathy. BS monitoring with sliding scale insulin. Continue gabapentin for neuropathy. -- Hypertension. Stable. Continue home medications --Hyperlipidemia. Continue home medication. . -- GERD. Continue Protonix. --Obesity. Likely secondary to excess calories intake. Patient counseled on weight reduction, diet and excise therapy. -- Microcytic anemia. We will continue to monitor H&H and transfuse if less than 7.0. --Gout. Continue home medications. --COPD. Stable. Continue home medications and supportive care. --CKD 2. Stable. We will continue to monitor renal functions. --DVT prophylaxis with SCDs. Continue chemical prophylaxis in a.m. Physician Review: Patient Assessed, Agree with Above Assessment and Plan Critical Care: No
[2023-02-19 16:26] VITALS: BMI 40.6
[2023-02-19] MEDS: INSULIN -REGULAR HUMAN 50 UNIT/0.5 ML ML SQ SCH ×2 (16:30→21:21)
[2023-02-19 17:57] LABS: Phosphorus 4.8 mg/dL (2.5-4.9)
[2023-02-19] MEDS ORDERED: INFLUENZA VACCINE (for 6+ mo) 0.5 ML DOSE IMVAC ONE (18:00)
[2023-02-19] MEDS ORDERED: [UNRECOGNIZED DRUG - OTHER] TOP PRN (19:02)
[2023-02-19] MEDS ORDERED: LIDOCAINE 5% TOP PRN (19:02)
[2023-02-19] MEDS: carvediloL 25 MG TAB PO SCH (21:00)
[2023-02-19] MEDS: DULERA 100/5 (MOMETASONE/FORMOTEROL) INHALER IH SCH (21:00)
[2023-02-19] MEDS: HYDRALAZINE HCL 25 MG TABLET PO SCH (21:00)
[2023-02-19] MEDS: IPRATROPIUM NAS SCH (21:00)
[2023-02-19] MEDS: FLUTICASONE 50MCG NASAL SPRAY NAS SCH (21:00)
[2023-02-19 21:07] VITALS: O2SAT 94
[2023-02-19] MEDS: GABAPENTIN 300 MG CAP PO SCH (21:18)
--- NOTE | 2023-02-19 23:24 | OP ---
Date of Procedure: 02/19/2023 Surgeon: Anjel Saleh MD Preoperative Diagnosis: Severe left knee arthritis. Postoperative Diagnosis: Severe left knee arthritis. Procedure: Right total knee arthroplasty using the Biomet system. Estimated Blood Loss: 100 cc. Complications: No complications. Indications For Operation: Ms. Choudhary is a 62-year-old female who has been troubled with the left kn ee for a long period of time. She has had extensive problems despite conservative management and ris ks, benefits, and alternatives to different methods of treating this have been discussed with her. S he would like total knee arthroplasty and risks, benefits, and alternatives associated with this part icular procedure were again discussed. She says she understands things as presented and wishes to pr oceed. Description Of Procedure: Patient was taken to the operating room and placed in supine position. Ge neral anesthesia was easily obtained by the Anesthesia staff. She previously had a block in the hold ing area. After this, her left lower extremity was then prepped and draped in usual sterile fashion for the procedure. Her knee was then elevated, exsanguinated with an Valerio wrap. The knee was bent an d tourniquet was raised. A standard anterior incision was taken down carefully through skin and soft tissues. It should be noted, there was quite a bit of adipose tissue. The appropriate level was ob tained and then reflected to reveal the extensor mechanism. Following this, a standard medial parapa tellar arthrotomy was then performed with liberation of approximately 60 cc of synovial fluid. There was found to be some proteinaceous exudate as well as significant synovitis. It should be noted tyrell t she has no history of signs of septic arthritis and definitely does not have any reason to believe that she should have anything other than severe inflammatory process. The synovial fluid did not shirley ear to be purulent. Decision was made to continue on after significant synovectomy is performed. Af ter this, the medial and lateral menisci were excised as well as the anterior cruciate ligament. The intramedullary alignment guide was placed without difficulty and distal cut was made. It was approp riately sized. Remainder of the cuts were made and attention was then turned to the tibia. The tibi a was then cut in standard fashion, removing all osteophytes or other debris. The trial femur and tr ial tibia were then placed. It comes to full extension with a size 10 poly and appears to be stable in both flexion and extension to varus and valgus stress and appears to be well balanced. Following this, the patella was then calipered and cut. The trial patella was placed. The patella does track ideally with flexion and extension of the knee. The trial components were then removed and the tibia was punched. After this, the box was cut and bone plug was placed. All of the surfaces were then c leaned meticulously and dried for cementation and implantation. Following this, the final components were then placed with the exception of the tibial polyethylene. A trial polyethylene was used while the cement hardened. Once the cement had completely hardened, care was taken to remove any unsuppor chapito cement. She was then brought through range of motion. The patella appears to track excellently as well as still being stable in the above parameters. Decision was made to move forward this polyet hylene. The trial polyethylene was removed. It was again irrigated for search for cement and the fi nal polyethylene was placed with a locking bar. After this, the knee was irrigated and closed using interrupted Ethibond sutures, followed by irrigation again and closure of the skin using Vicryl, foll owed by ced. The patient was then placed in a well-padded sterile dressing and taken to recovery room. /WALKER Voice ID: [id number] Report ID: [id number]
[2023-02-20] MEDS: CEFAZOLIN 1 GM in NA CHLORIDE 0.9% 50 ML IVPB SCH ×2 (00:32→08:15)
[2023-02-20] MEDS: ENOXAPARIN 30 MG/0.3 ML SQ SCH ×3 (06:03→20:42)
[2023-02-20] MEDS: PANTOPRAZOLE 40MG TABLET PO SCH (06:03)
[2023-02-20 06:33] LABS: Absolute Lymphocytes (CBC) 1.2 K/uL (0.7-4.9); Lymphocytes % 11.6 % (15.3-44.8); MCV 85.4 fL (80-100); RBC Red Blood Cell Count 3.28 M/uL (3.86-4.86)
[2023-02-20 06:38] LABS: Potassium 4.9 mEq/L (3.5-5.1)
[2023-02-20] MEDS: INSULIN -REGULAR HUMAN 50 UNIT/0.5 ML ML SQ SCH ×4 (07:30→20:47)
[2023-02-20] MEDS: HYDROCODONE/APAP 7.5/325 MG TAB PO PRN ×3 (08:16→20:44)
[2023-02-20] MEDS: FUROSEMIDE 40 MG TABLET PO SCH (08:17)
[2023-02-20] MEDS: HYDRALAZINE HCL 25 MG TABLET PO SCH ×2 (08:18→20:42)
[2023-02-20] MEDS: DULOXETINE 30 MG CAP PO SCH (08:18)
[2023-02-20] MEDS: carvediloL 25 MG TAB PO SCH ×2 (08:18→20:42)
[2023-02-20] MEDS: GABAPENTIN 300 MG CAP PO SCH ×3 (08:18→20:42)
[2023-02-20] MEDS: POTASSIUM CL SA 10 MEQ TAB PO SCH (08:19)
[2023-02-20] MEDS: allopurinoL 100 MG TAB PO SCH (08:20)
[2023-02-20] MEDS: INDOMETHACIN 25 MG CAP PO SCH (08:20)
[2023-02-20] MEDS: DULERA 100/5 (MOMETASONE/FORMOTEROL) INHALER IH SCH ×2 (08:26→20:43)
[2023-02-20] MEDS: FLUTICASONE 50MCG NASAL SPRAY NAS SCH ×2 (08:26→20:43)
[2023-02-20] MEDS: IPRATROPIUM NAS SCH ×2 (09:00→21:00)
[2023-02-20] MEDS ORDERED: POTASSIUM CHLORIDE 20 MEQ PO SCH (09:00)
[2023-02-21] MEDS: HYDROCODONE/APAP 7.5/325 MG TAB PO PRN ×4 (02:37→16:50)
[2023-02-21 03:42] LABS: Hematocrit 25.5 % (36.0-45.0)
[2023-02-21] MEDS: PANTOPRAZOLE 40MG TABLET PO SCH (06:06)
[2023-02-21] MEDS: INSULIN -REGULAR HUMAN 50 UNIT/0.5 ML ML SQ SCH ×4 (07:30→21:00)
[2023-02-21] MEDS: carvediloL 25 MG TAB PO SCH ×2 (08:37→21:22)
[2023-02-21] MEDS: DULOXETINE 30 MG CAP PO SCH (08:37)
[2023-02-21] MEDS: HYDRALAZINE HCL 25 MG TABLET PO SCH ×2 (08:37→21:22)
[2023-02-21] MEDS: allopurinoL 100 MG TAB PO SCH (08:37)
[2023-02-21] MEDS: POTASSIUM CL SA 10 MEQ TAB PO SCH (08:37)
[2023-02-21] MEDS: FUROSEMIDE 40 MG TABLET PO SCH (08:37)
[2023-02-21] MEDS: GABAPENTIN 300 MG CAP PO SCH ×3 (08:38→21:22)
[2023-02-21] MEDS: FLUTICASONE 50MCG NASAL SPRAY NAS SCH ×2 (08:38→21:00)
[2023-02-21] MEDS: INDOMETHACIN 25 MG CAP PO SCH (08:38)
[2023-02-21] MEDS: ENOXAPARIN 30 MG/0.3 ML SQ SCH ×2 (08:38→21:25)
[2023-02-21] MEDS: DULERA 100/5 (MOMETASONE/FORMOTEROL) INHALER IH SCH ×2 (08:38→21:00)
[2023-02-21] MEDS: IPRATROPIUM NAS SCH ×2 (08:39→21:00)
--- NOTE | 2023-02-21 17:48 | RAD REPORT ---
EXAM DESCRIPTION: MRI - Pelvis W/Wo Cont - 02/21/2023 3:54 pm CLINICAL HISTORY: Pelvic pain, numbness, left femoral nerve impingement COMPARISON: none TECHNIQUE: Axial, sagittal, and coronal magnetic images of the pelvis were obtained. 20 cc MultiHanc e administered intravenously FINDINGS: Coronal sequences demonstrate 6.7 centimeter area of increased signal on T2 weighted seque nces within the musculature of the anterior compartment left thigh. This area enhances. T1 weighted s equences show diminished signal. No fracture or dislocation. No evidence of avascular necrosis. Mild to moderate increased signal right gluteus muscle. Minimal signal left gluteus muscle. These may indicate strains. Small hip joint effusions IMPRESSION: Abnormal signal which enhances within the musculature anterior compartment left thigh. T his is only partially included in the field view and is incompletely evaluated on this exam. This pro bably represents either a severe myositis or compartment syndrome Examination discussed with the referring physician
--- NOTE | 2023-02-21 20:22 | CON ---
Reason For Consultation: Consultation called because of inability to lift the left leg after left to nany knee replacement and 2 femoral nerve blocks. History Of Present Illness: Ms. Choudhary is a 62-year-old right-handed athletic patie nt with hypertension, diabetes mellitus, dyslipidemia, COPD, and osteoarthritis who had refractory le ft knee ziui-be-einl osteoarthritis and conservative treatment did not relieve her symptoms. She had 7/10 pain prior to surgery and had surgery by Dr. Anjel Saleh on 02/19/2023 and she did have a left femoral block prior to surgery. After surgery, she had severe pain in the left thigh and knee a kari and had a second femoral nerve block with tourniquet. Since that time, the patient has been unab le to extend the left knee, but maintains the ability to move her foot up, down, in and out and to mo ve her knee [id number] and to bend at the thigh to elevate the knee, but no elevation of the leg. She has no problems on the right side or the upper extremities. 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 An MRI of the lumbar and pelvic area was ordered. The study did d emonstrate a 6.7 cm area of increased signal on T2 weighted sequences within the musculature of the a nterior compartment of the left thigh. With contrast, the area enhances and the T1 sequences show di minished signal. The radiologist's reading is anterior compartment, possibly due to severe myositis or a compartment syndrome. This was discussed with Dr. Saleh, the Orthopedic surgeon and Dr. Aki Bautista the radiologist. She also had a small hip joint effusion, [id number] increased sign al in the right gluteal muscle, minimal signal in the left gluteal muscle and they were felt to indic ate strains. Past Medical History: As noted and COPD. Past Surgical History: Hand surgery, C-sections x2, hysterectomy, cholecystectomy and left knee repl acement. Allergies: PNEUMOCOCCAL VACCINE. Medications: At home are allopurinol 100 mg daily, aspirin 81 mg daily, budesonide formoterol 160/4. 5 two puffs twice daily, Coreg 25 mg twice daily, Cymbalta 60 mg daily, Flonase 1 spray twice daily, Lasix 40 mg daily, Neurontin 600 mg 3 times daily, Amaryl 2 mg daily, hydralazine 50 mg twice daily, [place] 10/325 one every 6 hours as needed, indomethacin 50 mg daily, ipratropium bromide 2 sprays per nostril twice daily, lidocaine 5% apply topically twice daily as needed, metformin 500 mg twice daily , Prilosec 40 mg daily, and potassium 20 mEq daily. Family History: Mother with hypertension, diabetes, and COPD. Father with cancer. Brother with can cer. Sister with AIDS. Social History: No alcohol, tobacco, or IV drug use. Lives at home. Single family home. Review of Systems: As noted, severe weakness in the left leg and unable to lift the left leg. Mild pain in the left kne e area. Otherwise, some swelling in the left lower extremity and mild edema in the right lower extre mity. Otherwise, no fevers and chills. No nausea or vomiting. No rash. No headache. No gastroint estinal or genitourinary issues. Physical Examination: Vital Signs: Blood pressure 120/67, pulse 68, respiratory rate 16, temperature 97.8, and oxygen satu ration 97% to 100%. Weight 237 pounds, height 5 feet 4 inches, BMI 40.7. General: Ms. Choudhary is lying in bed. She is in no significant distress. HEENT: She appears normocephalic, atraumatic. Sclerae anicteric. Oropharynx is moist. Neck: Supple. Chest: Clear. Heart: Regular. Extremities: No edema or cyanosis except on the left, there is mild edema below the knee, the knee i s wrapped and some mild edema on the right. Neurological: Cranial nerves: No deficits. Upper extremities bilaterally with no focal deficits. In the left lower extremity, she has normal abduction of the knee and adduction of the left knee. Sh e has good flexion of the left heel onto the bed. She has 0 leg elevation. In terms of her hip flex ion, she has full strength. Her foot plantar and dorsiflexion 5/5, inversion and eversion of the kayce t 5/5. On sensory examination, she has a decrease in the anterior leg sensation compared to the righ t side. She does not have a tense appearing thigh on the left and is soft to palpation. Reflexes ar e absent in upper and lower extremities. Stocking-glove loss. She was ambulated with physical thera py with a left knee brace. She was at contact guard assistance covering 75 feet including 180 degree turn and she was able to maintain the weight with the left knee immobilizer. Laboratory Studies: Hemoglobin has decreased from 10.1 on 02/07 and now on 02/21 is 8.2. Her white blood cell count 10.5 and platelets 235. INR 0.96. Glucose ranged from 113 to 205, sodium 133, pota ssium 4.9, chloride 106, BUN 19, creatinine 0.93, calcium 8.6, phosphorus 4.8, magnesium 2.0, AST 11, ALT 17, alkaline phosphatase 83, total bilirubin 0.2, and albumin 2.8. She has aldolase and creatin e kinase pending. Urinalysis: 11 to 20 red blood cells, 1+ urobilinogen, 1+ bilirubin, 5 to 10 hyal ine casts, 3+ urine mucus, 1+ total protein, and pH greater than 1.03. Her COVID-19 test on the was positive. Assessment: Ms. Choudhary is a 62-year-old patient with likely focal conduction block involving the lef t femoral nerve distal to the inguinal ligament in the anterior thigh, perhaps of the area of involve ment as noted on the MRI, which is 6.7 cm in the anterior thigh and muscle. She has 0 to 5 left foot elevation and decreased sensation in the left anterior leg consistent with a femoral nerve involveme nt in the thigh area. The etiology is unclear, however, may be related to procedures done and the ra diologist's differential diagnosis lists intense or severe myositis versus compartment syndrome. The examination is not necessarily consistent with compartment syndrome, perhaps severe myositis, perhap s related to any procedures. Plan: 1.We will check aldolase and CPK. 2.May repeat imaging to look at the entire thigh to see if there is an extension of the area that is identified. 3.The patient should ambulate with a left knee immobilizer and still have cqxny-jt-ktyemi exercises done on the left knee. 4.Her recovery will likely take several weeks or longer. 5.EMG nerve conduction study may be a helpful study in the left lower extremity and compared to the right side, although the patient's body habitus may make it a difficult study. She may follow up in Dr. Yeh's office after dischar ge within the month. JESSI/WALKER Voice ID: [id number] Report ID: [id number]
--- NOTE | 2023-02-21 21:25 | PN ---
Date of Progress Note: 02/21/2023 I come to see Ms. Choudhary today. She is still admitted to the hospital. She is actually in very nadiya le pain. She is doing quite well. She says she is walking well with physical therapy using a knee i mmobilizer. Also called by Physical therapy as they stated that her quad function has not returned, and on physical examination she does not have very good contraction of the quadriceps. She does not appear to have good hip function. She does have anesthesia/paresthesia in the distribution of the fe moral nerve, but otherwise appears to be neurovascularly intact. Assessment: The anesthesia/paresthesia of the femoral nerve is lasting quite a bit longer than I wou ld like. I did discuss this with Anesthesia and they have decided to consult the neurologist, Dr. Isaiah beach, who will be evaluating her shortly. I think that she can walk with her knee immobilizer and we may need to leave her here a bit to have Dr. Yeh finish his examination and investigation. I do expect that this is related to something that will improve. Total knee arthroplasty is not signi ficantly associated with femoral nerve dysfunction especially isolated as this is, however, definitel y take Dr. Yeh's advice and consideration and will do what we can to help. SE/MODL Voice ID: [id number] Report ID: [id number]
[2023-02-22] MEDS: HYDROCODONE/APAP 7.5/325 MG TAB PO PRN ×2 (03:27→10:06)
[2023-02-22 04:48] LABS: Hematocrit 27.5 % (36.0-45.0)
--- NOTE | 2023-02-22 04:49 | P.PN ---
Date of Service: 02/20/23 Subjective: s/p surgery; plan to work with PT today Physical Examination Vitals: Reviewed General: Alert, In no apparent distress, Oriented x3, Cooperative Respiratory: Clear to auscultation bilaterally, Normal air movement Cardiovascular: Regular rate/rhythm, Normal S1 S2, Edema Gastrointestinal: Normal bowel sounds, Soft and benign, No tenderness Musculoskeletal: No clubbing, No tenderness Integumentary: No rashes, No breakdown, No significant lesion Neurological: decreased strength in the left leg. She has to lift with her right foot. Conclusions/Impression: --Left knee pain\osteoarthritis. --DM2 with neuropathy. --Hypertension. --Hyperlipidemia. --GERD. --Obesity. --Microcytic anemia. --Gout. --COPD. --CKD 2. --DVT prophylaxis with SCDs. - Status post right knee total arthroplasty. Patient on CPM machine. PT eval and treat. We will further recommendation from orthopedic surgeon. - Continue with pain control and DVT prophylaxis - BS monitoring with sliding scale insulin. Continue gabapentin for neuropathy. - Continue Protonix. - We will continue to monitor H&H and transfuse if less than 7.0. - Continue home medications and supportive care. - continue to monitor renal functions.
--- NOTE | 2023-02-22 04:52 | P.PN ---
Date of Service: 02/21/23 Subjective: Patient is having some difficulty with lifting her left leg. Patient denies any new complaints. Patient's clinical symptoms overall are improving. She will work with physical therapy today. She had a knee immobilizer placed Physical Examination Vitals: Reviewed General: Alert, In no apparent distress, Oriented x3, Cooperative Respiratory: Clear to auscultation bilaterally, Normal air movement Cardiovascular: Regular rate/rhythm, Normal S1 S2, Edema Gastrointestinal: Normal bowel sounds, Soft and benign, No tenderness Musculoskeletal: No clubbing, No tenderness Integumentary: No rashes, No breakdown, No significant lesion Neurological: decreased strength in the left leg. She has to lift with her right foot. Conclusions/Impression: --Left knee pain\osteoarthritis. --DM2 with neuropathy. --Hypertension. --Hyperlipidemia. --GERD. --Obesity. --Microcytic anemia. --Gout. --COPD. --CKD 2. --DVT prophylaxis with SCDs. Plan: - Status post right knee total arthroplasty. Continue with PT eval and treat. We will await neuro and ortho eval as PT states that pt not lifting left leg - Continue with pain control and DVT prophylaxis - BS monitoring with sliding scale insulin. Continue gabapentin for neuropathy. - MRI pelvis pending - Monitor H&H and transfuse if less than 7.0. - Continue home medications and supportive care. - continue to monitor renal functions.
[2023-02-22 05:38] LABS: ALT/SGPT 19 U/L (13-56); AST/SGOT 37 U/L (15-37); Albumin 2.5 g/dL (3.4-5.0); Alkaline Phosphatase 72 U/L (45-117); Bilirubin Total 0.3 mg/dL (0.2-1.0); Creatine Phosphokinase 862 U/L (26-192); Protein, Total 6.5 g/dL (6.4-8.2); Thyroid Stimulating Hormone 0.859 uIU/mL (0.358-3.740)
[2023-02-22 05:42] LABS: Bilirubin Direct < 0.1 mg/dL (0-0.2)
[2023-02-22] MEDS: PANTOPRAZOLE 40MG TABLET PO SCH (05:46)
[2023-02-22 06:05] LABS: Potassium 4.1 mEq/L (3.5-5.1)
[2023-02-22] MEDS ORDERED: CYANOCOBALAMIN 1000MCG/ML INJ IM ONE (06:14)
[2023-02-22] MEDS ORDERED: HYDROCORTISONE SUC 100 MG INJ IV ONE (06:14)
[2023-02-22] MEDS: INSULIN -REGULAR HUMAN 50 UNIT/0.5 ML ML SQ SCH ×2 (07:30→11:30)
[2023-02-22] MEDS: IPRATROPIUM NAS SCH (09:00)
[2023-02-22] MEDS: FLUTICASONE 50MCG NASAL SPRAY NAS SCH (09:00)
[2023-02-22] MEDS: DULERA 100/5 (MOMETASONE/FORMOTEROL) INHALER IH SCH (09:00)
[2023-02-22 09:05] VITALS: BP 146/85; TEMP 97.8
[2023-02-22] MEDS: FUROSEMIDE 40 MG TABLET PO SCH (10:05)
[2023-02-22] MEDS: DULOXETINE 30 MG CAP PO SCH (10:05)
[2023-02-22] MEDS: allopurinoL 100 MG TAB PO SCH (10:05)
[2023-02-22] MEDS: HYDRALAZINE HCL 25 MG TABLET PO SCH (10:05)
[2023-02-22] MEDS: ENOXAPARIN 30 MG/0.3 ML SQ SCH (10:05)
[2023-02-22] MEDS: POTASSIUM CL SA 10 MEQ TAB PO SCH (10:05)
[2023-02-22] MEDS: carvediloL 25 MG TAB PO SCH (10:06)
[2023-02-22] MEDS: GABAPENTIN 300 MG CAP PO SCH (10:06)
--- NOTE | 2023-02-22 14:00 | PN ---
Subjective: Ms. Choudhary reports her left leg strength returned. She said last night she was trying t o move the leg and actually swung it around and noted that she could move it and she sat at the side of the bed. Was able to extend the left leg and it seemed to come back to normal. She denies any ad ditional complaints except expected pain following her left total knee replacement. Objective: Vital Signs: Blood pressure 146/85, pulse 79, respiratory rate 16, temperature 97.8, oxy gen saturation 98%. General: Ms. Choudhary is resting in her bedside chair. She is in no acute distress. She does have th e left knee wrapped and has a brace on. She has no new findings. Please note in the history and phy sical in the dictation, an error was made where patient was referred to as athletic. It should be re ferred to as she is obese instead of athletic. Neurological: In terms of her examination, she was able to move the left knee and did not report any more weakness than expected after the total knee replacement, which is limited by some swelling and pain. Sensation is slightly decreased in the left compared to the right anterior leg. Otherwise, no additional findings on exam. Laboratory Studies: Hemoglobin 8.9, hematocrit 27.5. Her blood sugars ranged from 104 to 135. Sodi um 136, potassium 4.1, chloride 105, carbon dioxide 30, BUN 15, creatinine 0.71, creatine kinase elev ated to 862. C-reactive protein elevated to 55. Albumin is low at 2.5. Her aldolase is pending. B 12 is low therapeutic at 373. TSH and T4 are unremarkable. Cortisol is unremarkable. Liver functio n studies are normal. Note her MRI of the pelvis done yesterday was read by radiologist, Dr. Falcon as possible compartme nt syndrome versus severe myositis in the left anterior thigh. Assessment: Ms. Choudhary is a 62-year-old patient with improving left femoral nerve entrapment in the thigh producing weakness in the quadriceps and there is some numbness in the anterior leg. She seems to improve significantly since yesterday. She has left total knee replacement and comorbids gout, h ypertension, depression, diabetic neuropathy, and reflux. Plan: 1.Continue with physical therapy as per Dr. Saleh. 2.She may continue her current regimen of medications including gabapentin 600 mg 3 times daily. Co ntinue with aggressive management of diabetes mellitus, hypertension, and if need be, she can follow up in Dr. Yeh's clinic 1 month after discharge. ADAN Voice ID: [id number] Report ID: [id number]
== END 2023-02-22 12:15 | disposition home health service (06) | DRG 469 ==
LOC: OR 07:43 → 4TH 14:03 → OBSVTOIN 02-21 18:01
PROVIDERS: ADMIT Orthopaedic Surgery; ATTEND Orthopaedic Surgery
PROC: 3E0T3BZ Introduction of Anesthetic Agent into Peripheral Nerves and Plexi, Percutaneous Approach (ICD-10-PCS; 2023-02-19)
PROC: 0SRD069 Replacement of Left Knee Joint with Oxidized Zirconium on Polyethylene Synthetic Substitute, Cemented, Open Approach (ICD-10-PCS; principal; 2023-02-19 10:00)
DX: M17.12 Unilateral primary osteoarthritis, left knee (principal); U07.1 COVID-19; Z68.41 Body mass index [BMI] 40.0-44.9, adult; M60.862 Other myositis, left lower leg; G57.82 Other specified mononeuropathies of left lower limb; T81.89XA Other complications of procedures, not elsewhere classified, initial encounter; E11.40 Type 2 diabetes mellitus with diabetic neuropathy, unspecified; M10.9 Gout, unspecified; M25.459 Effusion, unspecified hip; I12.9 Hypertensive chronic kidney disease with stage 1 through stage 4 chronic kidney disease, or unspecified chronic kidney disease; E11.22 Type 2 diabetes mellitus with diabetic chronic kidney disease; N18.2 Chronic kidney disease, stage 2 (mild); E66.9 Obesity, unspecified; E66.09 Other obesity due to excess calories; K21.9 Gastro-esophageal reflux disease without esophagitis; J44.9 Chronic obstructive pulmonary disease, unspecified; D50.9 Iron deficiency anemia, unspecified; E78.5 Hyperlipidemia, unspecified; F32.A Depression, unspecified; Z71.3 Dietary counseling and surveillance; Z79.82 Long term (current) use of aspirin; Z79.899 Other long term (current) drug therapy; Z88.7 Allergy status to serum and vaccine; Z90.710 Acquired absence of both cervix and uterus; Z90.49 Acquired absence of other specified parts of digestive tract; Z82.49 Family history of ischemic heart disease and other diseases of the circulatory system; Z83.3 Family history of diabetes mellitus; Z80.9 Family history of malignant neoplasm, unspecified
CPT/HCPCS: 36415; 71046; 72197; 80048; 80053; 80076; 81001; 82085; 82533; 82550; 82607; 82947; 83735; 84100; 84439; 84443; 85014; 85018; 85025; 85610; 85730; 86140; 86850; 86900; 86901; 87811; 88304; 88311; 93005; 94010; 97110; 97116; 97139; 97161; 97530; A9577; C1776; G0378; G0379; J0171; J0690; J1100; J1170; J1650; J1720; J1815; J2001; J2250; J2405; J2704; J3010; J3420; J3535; J7030

== ENCOUNTER 2023-05-14 10:32 | Observation (INO) | payer OTHER ==
[2023-05-13 09:01] LABS: Absolute Lymphocytes (CBC) 2.9 K/uL (0.7-4.9); Hematocrit 35.8 % (36.0-45.0); Lymphocytes % 28.2 % (15.3-44.8); MCV 85.5 fL (80-100); MPV 7.7 fL (7.6-11.3); RBC Red Blood Cell Count 4.19 M/uL (3.86-4.86)
[2023-05-13 09:12] LABS: Protime INR 0.98
[2023-05-13 09:13] LABS: Specific Gravity 1.023 (1.005-1.030); Urine Bacteria 20-50 /HPF (<20); Urine Bilirubin NEGATIVE (Negative); Urine Blood Negative (Negative); Urine Clarity Turbid (Clear); Urine Color Yellow (Yellow); Urine Glucose NEGATIVE (Negative); Urine Mucus Slight /HPF (None Seen); Urine Protein TRACE (Negative); Urine Urobilinogen 1+ (Normal); Urine pH 5.5 (5.0-7.0)
[2023-05-13 09:25] LABS: Albumin 3.5 g/dL (3.4-5.0); Bilirubin Total 0.4 mg/dL (0.2-1.0); Potassium 4.3 mEq/L (3.5-5.1)
[2023-05-14] MEDS ORDERED: GABAPENTIN 100 MG CAP ONE (11:06)
[2023-05-14] MEDS ORDERED: CELECOXIB 100 MG CAPSULE ONE (11:06)
[2023-05-14] MEDS ORDERED: CEFAZOLIN SODIUM 2 GM/VIAL ONE (11:06)
[2023-05-14] MEDS ORDERED: Oxycodone HCl/Acetaminophen 1 TAB TAB ONE (11:07)
[2023-05-14] MEDS ORDERED: NA CHLORIDE 0.9% 1,000 ML ONE ×2 (11:07→14:17)
[2023-05-14] MEDS ORDERED: EPINEPHRINE/PF 1 MG/ML AMP ONE (12:12)
[2023-05-14] MEDS ORDERED: LIDOCAINE 2% MPF 5 ML VIAL ONE ×2 (12:12→13:43)
[2023-05-14] MEDS ORDERED: MIDAZOLAM HCL 2 MG/2 ML INJ ONE (12:12)
[2023-05-14] MEDS ORDERED: propofoL 200 MG/20 ML VIAL IV ONE (12:12)
[2023-05-14] MEDS ORDERED: FENTANYL CITR 100 MCG/2 ML ONE (12:12)
[2023-05-14] MEDS ORDERED: BUPIVACAINE 0.25% PF 30 ML VIAL ONE (12:12)
[2023-05-14] MEDS ORDERED: LIDOCAINE 1% MPF 5 ML VIAL ONE (12:12)
[2023-05-14] MEDS ORDERED: dexAMETHasone 10 MG/ML VIAL ONE (12:12)
[2023-05-14] MEDS ORDERED: ROCURONIUM 50 MG/5 ML VIAL IV ONE (12:13)
[2023-05-14] MEDS ORDERED: HYDROMORPHONE HCL 1 MG/ML INJ ONE (13:26)
[2023-05-14] MEDS ORDERED: MAGNESIUM SULFATE 1 gm IVPB 1 GM/100 ML BAG IV ONE (13:30)
[2023-05-14] MEDS ORDERED: TRANEXAMIC ACID 1,000 MG/10 ML VIAL IV ONE (13:35)
[2023-05-14] MEDS ORDERED: KETAMINE HCL IN 0.9 % NACL 50 MG/5 ML SYRINGE IV ONE (13:43)
[2023-05-14] MEDS ORDERED: LIDOCAINE 1% MPF 30 ML VIAL ONE (13:55)
[2023-05-14] MEDS ORDERED: ONDANSETRON 4 MG/2 ML VIAL IV PRN (15:33)
[2023-05-14] MEDS ORDERED: DOCUSATE NA 100 MG CAP PO PRN (15:33)
--- NOTE | 2023-05-14 15:40 | P.BOP ---
Preoperative diagnosis: right knee arthritis Postoperative diagnosis: same Primary procedure: right total knee arthoplasty Estimated blood loss: 100 ccs Anesthesia: General Complications: None Transferred to: Recovery Room Condition: Good
[2023-05-14] MEDS: HYDROMORPHONE HCL 2 MG/ML inj ONE ×4 (15:48→16:12)
[2023-05-14] MEDS: FENTANYL CITR 100 MCG/2 ML ONE ×3 (16:36→17:02)
--- OUTSIDE RECORDS SUMMARY | 2023-05-14 17:20 | XMS REPORT | Continuity of Care Document ---
:1960 Author Organization [facility] t Address [address] [place] [address]. [address] [place] [address] Care Team Providers Name Role Phone Cody Elizondo MD Primary Care Physician CODY ELIZONDO Attending Clinician Unavailable TANISHA SANCHEZ Attending Clinician Unavailable Cody Elizondo MD Attending Clinician Doctor Unassigned, [place] Attending Clinician Unavailable Barbara Nagy LMSW Attending Clinician Franklin Carrasquillo MD Attending Clinician FRANKLIN CARRASQUILLO Attending Clinician Unavailable 2, [facility] Attending Clinician Unavailable VILLA CHONG Attending Clinician Unavailable Arnaldo Stewart PTA Attending Clinician Unavailable Gurpreet Ty MD Attending Clinician Yaquelin Mari PT Attending Clinician Unavailable Henri Ortiz MD Attending Clinician Pob, [facility] Main Attending Clinician Unavailable Awa Alvarez RN Attending Clinician Unavailable PEDRO CLEMENTE Attending Clinician Unavailable Pedro Clemente DO Attending Clinician Serina Lugo MD Attending Clinician [phone] Tanisha Sanchez MD Attending Clinician RAMIREZ Attending Clinician Unavailable Villa Chong DO Attending Clinician Pcp-Lab Attending Clinician Unavailable ITZ WATT Attending Clinician Unavailable Itz Roth Attending Clinician Lab, Ang - Db Attending Clinician Unavailable Robyn Arias RN Attending Clinician Unavailable Vaccine, [facility] Attending Clinician Unavailable Rhett Chaparro DO Attending Clinician RHETT CHAPARRO Attending Clinician Unavailable GURPREET TY Attending Clinician Unavailable Nelson Aragon MD Attending Clinician MAXIMILIAN SEAMAN Attending Clinician Unavailable Maximilian Davies Attending Clinician MELITA AREVALO Attending Clinician Unavailable Melita Garcia Attending Clinician Tono Rico RN Attending Clinician Unavailable CONSTANTINE KEMP Attending Clinician Unavailable Reyna Watt MD Attending Clinician Constantine Kemp MD Attending Clinician GUILLERMINA PALMA Attending Clinician Unavailable Guillermina Palma DO Attending Clinician Roxana Nunn OT Attending Clinician Unavailable Nurse, [facility] Pob Immunization Attending Clinician Unavailable Med, Medicare Wellness [employer] Mark Attending Clinician Unavailab NORHT Marsh Attending Clinician Unavailable SHAD GREENBERG Attending Clinician Unavailable SKIP HAWLEY Attending Clinician Unavailable SKIP HAWLEY Attending Clinician Unavailable BARRIE AUGUSTIN Attending Clinician Unavailable TUYET LEVINE Attending Clinician Unavailable ZHANE CARRASCO Attending Clinician Unavailable JOSE ROBIN Attending Clinician Unavailable FRANKLIN CARRASQUILLO Admitting Clinician Unavailable CODY ELIZONDO Admitting Clinician Unavailable TANISHA SANCHEZ Admitting Clinician Unavailable RAMIREZ Admitting Clinician Unavailable PEDRO CLEMENTE Admitting Clinician Unavailable MELITA AREVALO Admitting Clinician Unavailable CONSTANTINE KEMP Admitting Clinician Unavailable Constantine Kemp MD Admitting Clinician SKIP HAWLEY Admitting Clinician Unavailable JOSE ROBIN Admitting Clinician Unavailable Payers Payer Name Policy Type Policy Number Effective Date Expiration Date Cecilia venegas [employer] DUAL [id number] 2019 COMP HMO D SNP 00:00:00 [facility] STAR PLUS [id number] 2016 00:00:00 [facility] [id number] DUAL COMPLETE CHOICE Problems Condition Condition Condition Status Onset Resolution Last Treating Co mments Source Name Details Category Date Date Treatment Clinician Date Status Status Disease Active Univers post total post total 03-12 [place] repl[place] 00 Me dical t t Branch Vitamin D Vitamin D Disease Active Uni vers deficiency deficiency 03-12 it y of 00:00: [place] 00 Medical Branch YI YI Disease Active Univers positive positive 7-05 ity of 00:00: [place] 00 Medical Branch Low TSH Low TSH Disease Active Univers level level 7-05 ity of 00:00: [place] 00 Medical Branch Rheumatoid Rheumatoid Disease Active U nivers factor factor 7-05 ity of positive positive 00:00: [place] 00 Medical Branch Rheumatoid Rheumatoid Disease Active U nivers arthritis arthritis 5-31 ity of flare flare 00:00: [place] 00 Medical Branch Gouty Gouty Disease Active Univers arthritis arthritis 5-31 ity of 00:00: [place] 00 Medical Branch Nicotine Nicotine Disease Active Unive rs dependence dependence 5-31 it y of with with 00:00: [place] current current 00 Medical use use Branch Gouty Gouty Disease Active Univers arthritis arthritis 5-31 ity of 00:00: [place] 00 Medical Branch Nicotine Nicotine Disease Active Unive rs dependence dependence 5-31 it y of with with 00:00: [place] current current 00 Medical use use Branch [...] joint 2-04 ity of of of 00:00: [place] multiple multiple 00 Medica l sites sites Branch Left foot Left foot Disease Active Uni vers pain pain 2-04 ity of 00:00: [place] 00 Medical Branch Obesity Obesity Disease Active Univers (BMI (BMI 1-04 ity of 30-39.9) 30-39.9) 00:00: [place] 00 [facility] Disease Active 2020-11 Unive rs discharge discharge 0-21 ity of follow-up follow-up 00:[place] Right Right Disease Active 2020-11 Univers groin pain groin pain 0-21 it y of 00:00: [place] 00 Medical Branch Supraumbil Supraumbil Disease Active 2020-11 U anshul ical ical 0-21 ity of hernia hernia 00:00: [place] 00 Medical Branch Colon, Colon, Disease Active 2020-11 Univers diverticul diverticul 0-21 it y of osis osis 00:00: [place] 00 Medical Branch Primary Primary Disease Active 2020-11 Univers osteoarthr osteoarthr 0-21 it y of itis of itis of 00:00: [place] both knees both knees 00 Me dical Branch Primary Primary Disease Active 2020-11 Univers osteoarthr osteoarthr 0-21 it y of itis of itis of 00:00: [place] both both 00 Medical shoulders shoulders Bran ch [facility] Disease Active 2020-11 Uni vers (current) (current) 0-21 ity of use of use of 00:00: [place] non-steroi non-steroi 00 Ak dical laura laura Branch anti-infla anti-infla mmatories mmatories (nsaid) (nsaid) 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 acute acute 0-09 ity of exacerbati exacerbati [place] Disease Active Univers frequently frequently 9- it y of 00:00: [place] 00 Medical Branch Infective Infective Disease Active Uni vers urethritis urethritis 5-11 it y of 00:00: [place] 00 Medical Branch Proteus Proteus Disease Active [...] against [place] influenza influenza 00 [facility] Branch Yeast Yeast Disease Active Univers infection [...] both both 00:00: [place] shoulders shoulders 00 [facility] Branch Gastroesop Gastroesop Disease Active U nivers hageal hageal 1-27 ity of reflux reflux [...] 00:00: [place] pain with pain with 00 [facility] bilateral bilateral Bran ch sciatica sciatica Muscle Muscle Disease Active Univers spasticity spasticity 1-27 it y of 00:00: [place] 00 Medical Branch Chronic Chronic Disease Active Univers pain of pain of 1-27 ity of both both 00:00: [place] shoulders shoulders 00 [facility] Branch Weakness Weakness Disease Active 2019-11 Unive rs 0-29 ity of 00:00: [place] 00 Medical Branch Atypical Atypical Disease Active Unive rs chest pain chest pain 1-10 it y of 00:00: [place] 00 Medical Branch Hyperglyce Hyperglyce Disease Active U anshul shah 1-09 ity of 00:00: [place] 00 Medical Branch YEHUDA YEHUDA Disease Active 2018-11 Univers (obstructi (obstructi 0-27 it y of ve sleep ve sleep 00:00: [place] apnea) apnea) 00 [facility] Branch Morbid Morbid Disease Active 2018-11 Univers obesity obesity 0-27 ity of 00:00: [place] 00 [facility] Branch Chronic Chronic Disease Active 2018-11 Univers heart heart 0-27 ity of failure failure 00:00: [place] with with 00 Medical preserved preserved Bran ch ejection ejection fraction fraction Essential Essential Disease Active 2018-11 Uni vers hypertensi hypertensi 0-27 it y of on on 00:00: [place] [facility] Branch Dizziness Dizziness Disease Active 2018-11 Uni vers and and 0-27 ity of giddiness giddiness 00:[facility]: [facility] Allergies, Adverse Reactions, Alerts Allergy Allergy Status Severity Reaction(s) Onset Inactive Treating Comm ents Source Name Type Date Date Clinician NO KNOWN Drug Active Univers ALLERGIE Class ity of S [facility] Social History Social Habit Start Date Stop Date Quantity Comments Source Gender identity Universit y of [facility] Sexual orientation Univer sity of [facility] Exposure to 2023-03-02 2023-03-12 Not sure [facility] SARS-CoV-2 (event) 00:00:00 11:11:00 [facility] Alcohol intake 2023-03-12 2023-03-12 0 /d University of 00:00:00 00:00:00 [facility] History of Social 2022-11-08 2022-11-08 Univers ity of function 00:00:00 00:00:00 [facility] Cigarettes smoked 2022-08-08 2022-08-08 Univers ity of current (pack per 00:00:00 00:00:00 [facility] ) - Reported Branch Cigarette 2022-08-08 2022-08-08 University of pack-years 00:00:00 00:00:00 [facility] Tobacco use and 2022-08-08 2022-08-08 Smokeless tobacco Un iversity of exposure 00:00:00 00:00:00 non-user [facility] Tobacco Comment 2022-08-08 2022-08-08 intermittent since U niversity of 00:00:00 00:00:00 1987, did non [place] Medic al nicotene vaping in Branch past History of tobacco 1988-08-04 2020-08-04 Cigarette Smoker University of use 00:00:00 00:00:00 [facility] [birth year] At [birth year] [facility] Smoking Status Start Date Stop Date Source Ex-smoker 2022-08-08 00:00:00 2022-08-08 00:00:00 Universi ty [facility] Medications Ordered Filled Start Stop Current Ordering Indication Dosage Frequency Signature Comments Components Source Medication Medication Date Date Medication? Clinician (SIG) Name Name blood sugar Yes [id number] CHECK Univers diagnostic 6-28 BLOOD ity of (ONETOUCH 00:00: GLUCOSE [place] ULTRA TEST) 00 FOUR TIMES Me dical strip DAILY Branch blood sugar Yes [id number] CHECK Univers diagnostic 6-28 BLOOD ity of (ONETOUCH 00:00: GLUCOSE [place] ULTRA TEST) 00 FOUR TIMES Me dical strip DAILY Branch albuterol Yes [id number] INHALE ONE Univers 2.5 mg /3 6-23 VIAL VIA ity of mL (0.083 00:00: NEBULIZER [place] as %) 00 EVERY 4 Medical nebulizer HOURS Branch solution NEEDED FOR WHEEZING OR SHORTNESS OF BREATH aspirin Yes [id number] 81mg Take 1 U nivers (ADULT LOW 6-23 02 tablet by ity of DOSE 00:00: mouth in [place] ASPIRIN) 81 00 the Medical mg EC morning. Branch tablet diclofenac- Yes [id number] 1{tbl} Take 1 Univers misoprostoL 6-23 tablet by ity of 50-200 00:00: mouth once [place] mg-mcg per 00 daily as Medic al tablet needed Branch (Chronic Pain - Arthritis, multiple joint involvemen t). DULoxetine Yes [id number] 60mg Take 1 Univers 60 mg 6-23 capsule by ity of capsule 00:00: mouth in [place] 00 the Medical morning Branch and 1 capsule in the evening. methylPREDN 2022-0 Yes Take by Univers ISolone 6-23 mouth ity of (MEDROL, 00:00: SEE-INSTRU [place] ASH,) 4 mg 00 CTIONS. Medica l tablets follow Branch package directions albuterol 2022-0 Yes [id number] INHALE ONE Univers 2.5 mg /3 6-23 VIAL VIA ity of mL (0.083 00:00: NEBULIZER [place] as %) 00 EVERY 4 Medical nebulizer HOURS Branch solution NEEDED FOR WHEEZING OR SHORTNESS OF BREATH aspirin 2022-0 Yes [id number] 81mg Take 1 U nivers (ADULT LOW 6-23 02 tablet by ity of DOSE 00:00: mouth in [place] ASPIRIN) 81 00 the Medical mg EC morning. Branch tablet diclofenac- 2022-0 Yes [id number] 1{tbl} Take 1 Univers misoprostoL 6-23 tablet by ity of 50-200 00:00: mouth once [place] mg-mcg per 00 daily as Medic al tablet needed Branch (Chronic Pain - Arthritis, multiple joint involvemen t). DULoxetine 0 Yes 60mg Take 1 Univers 60 mg 6-23 capsule by ity of capsule 00:00: mouth in [place] 00 the Medical morning Branch and 1 capsule in the evening. methylPREDN 2022-0 Yes Take by Univers ISolone 6-23 mouth ity of (MEDROL, 00:00: SEE-INSTRU [place] as ASH,) 4 mg 00 CTIONS. Medica l tablets follow Branch package directions albuterol 2022-0 Yes [id number] INHALE ONE Univers 2.5 mg /3 6-23 VIAL VIA ity of mL (0.083 00:00: NEBULIZER [place] as %) 00 EVERY 4 Medical nebulizer HOURS Branch solution NEEDED FOR WHEEZING OR SHORTNESS OF BREATH aspirin 2022-0 Yes [id number] 81mg Take 1 U nivers (ADULT LOW 6-23 02 tablet by ity of DOSE 00:00: mouth in [place] ASPIRIN) 81 00 the Medical mg EC morning. Branch tablet diclofenac- 2022-0 Yes [id number] 1{tbl} Take 1 Univers misoprostoL 6-23 tablet by ity of 50-200 00:00: mouth once [place] mg-mcg per 00 daily as Medic al tablet needed Branch (Chronic Pain - Arthritis, multiple joint involvemen t). DULoxetine Yes 60mg Take 1 Univers 60 mg 6-23 capsule by ity of capsule 00:00: mouth in [place] 00 the Medical morning Branch and 1 capsule in the evening. methylPREDN 0 Yes Take by Univers ISolone 6-23 mouth ity of (MEDROL, 00:00: SEE-INSTRU [place] as ASH,) 4 mg 00 CTIONS. Medica l tablets follow Branch package directions albuterol 0 Yes [id number] INHALE ONE Univers 2.5 mg /3 6-23 VIAL VIA ity of mL (0.083 00:00: NEBULIZER [place] as %) 00 EVERY 4 Medical nebulizer HOURS Branch solution NEEDED FOR WHEEZING OR SHORTNESS OF BREATH aspirin 0 Yes [id number] 81mg Take 1 U nivers (ADULT LOW 6-23 02 tablet by ity of DOSE 00:00: mouth in [place] ASPIRIN) 81 00 the Medical mg EC morning. Branch tablet diclofenac- Yes [id number] 1{tbl} Take 1 Univers misoprostoL 6-23 tablet by ity of 50-200 00:00: mouth once [place] mg-mcg per 00 daily as Medic al tablet needed Branch (Chronic Pain - Arthritis, multiple joint involvemen t). DULoxetine Yes 60mg Take 1 Univers 60 mg 6-23 capsule by ity of capsule 00:00: mouth in [place] 00 the Medical morning Branch and 1 capsule in the evening. methylPREDN 0 Yes Take by Univers ISolone 6-23 mouth ity of (MEDROL, 00:00: SEE-INSTRU [place] ASH,) 4 mg 00 CTIONS. Medica l tablets follow Branch package directions potassium 2022-0 Yes [id number] 10meq Take 1 U nivers chloride 10 5-10 tablet by ity of mEq CR 00:00: mouth [place] tablet 00 every Medical Saturday, Branch Saturday and Saturday. potassium 2022-0 Yes [id number] 10meq Take 1 U nivers chloride 10 5-10 tablet by ity of mEq CR 00:00: mouth [place] tablet 00 every Medical Saturday, Branch Saturday and Saturday. potassium 2022-0 Yes [id number] 10meq Take 1 U nivers chloride 10 5-10 tablet by ity of mEq CR 00:00: mouth [place] tablet 00 every Medical Saturday, Branch Saturday and Saturday. potassium 2022-0 Yes [id number] 10meq Take 1 U nivers chloride 10 5-10 tablet by ity of mEq CR 00:00: mouth [place] tablet 00 every Medical Saturday, Branch Saturday and Saturday. potassium 2022-0 Yes [id number] 10meq Take 1 U nivers chloride 10 5-10 tablet by ity of mEq CR 00:00: mouth [place] tablet 00 every Medical Saturday, Branch Saturday and Saturday. potassium 2022-0 Yes [id number] 10meq Take 1 U nivers chloride 10 5-10 tablet by ity of mEq CR 00:00: mouth [place] tablet 00 every Medical Saturday, Branch Saturday and Saturday. potassium 2022-0 Yes [id number] 10meq Take 1 U nivers chloride 10 5-10 tablet by ity of mEq CR 00:00: mouth [place] tablet 00 every Medical Saturday, Branch Saturday and Saturday. potassium 2022-0 Yes [id number] 10meq Take 1 U nivers chloride 10 5-10 tablet by ity of mEq CR 00:00: mouth [place] tablet 00 every Medical Saturday, Branch Saturday and Saturday. potassium 2022-0 Yes [id number] 10meq Take 1 U nivers chloride 10 5-10 tablet by ity of mEq CR 00:00: mouth [place] tablet 00 every Medical Saturday, Branch Saturday and Saturday. potassium 2022-0 Yes [id number] 10meq Take 1 U nivers chloride 10 5-10 tablet by ity of mEq CR 00:00: mouth [place] tablet 00 every Medical Saturday, Branch Saturday and Saturday. potassium 2022-0 Yes [id number] 10meq Take 1 U nivers chloride 10 5-10 tablet by ity of mEq CR 00:00: mouth [place] tablet 00 every Medical Saturday, Branch Saturday and Saturday. potassium 2022-0 Yes [id number] 10meq Take 1 U nivers chloride 10 5-10 tablet by ity of mEq CR 00:00: mouth [place] tablet 00 every Medical Saturday, Branch Saturday and Saturday. potassium 2022-0 Yes [id number] 10meq Take 1 U nivers chloride 10 5-10 tablet by ity of mEq CR 00:00: mouth [place] tablet 00 every Medical Saturday, Branch Saturday and Saturday. potassium 2022-0 Yes [id number] 10meq Take 1 U nivers chloride 10 5-10 tablet by ity of mEq CR 00:00: mouth [place] tablet 00 every Medical Saturday, Branch Saturday and Saturday. potassium 2022-0 Yes [id number] 10meq Take 1 U nivers chloride 10 5-10 tablet by ity of mEq CR 00:00: mouth [place] tablet 00 every Medical Saturday, Branch Saturday and Saturday. potassium 2022-0 Yes [id number] 10meq Take 1 U nivers chloride 10 5-10 tablet by ity of mEq CR 00:00: mouth [place] tablet 00 every Medical Saturday, Branch Saturday and Saturday. potassium 2022-0 Yes [id number] 10meq Take 1 U nivers chloride 10 5-10 tablet by ity of mEq CR 00:00: mouth [place] tablet 00 every Medical Saturday, Branch Saturday and Saturday. potassium 2022-0 Yes [id number] 10meq Take 1 U nivers chloride 10 5-10 tablet by ity of mEq CR 00:00: mouth [place] tablet 00 every Medical Saturday, Branch Saturday and Saturday. potassium 2022-0 Yes [id number] 10meq Take 1 U nivers chloride 10 5-10 tablet by ity of mEq CR 00:00: mouth [place] tablet 00 every Medical Saturday, Branch Saturday and Saturday. potassium 2022-0 Yes [id number] 10meq Take 1 U nivers chloride 10 5-10 tablet by ity of mEq CR 00:00: mouth [place] tablet 00 every Medical Saturday, Branch Saturday and Saturday. potassium 2022-0 Yes [id number] 10meq Take 1 U nivers chloride 10 5-10 tablet by ity of mEq CR 00:00: mouth [place] tablet 00 every Medical Saturday, Branch Saturday and Saturday. potassium 2022-0 Yes [id number] 10meq Take 1 U nivers chloride 10 5-10 tablet by ity of mEq CR 00:00: mouth [place] tablet 00 every Medical Saturday, Branch Saturday and Saturday. potassium 2022-0 Yes [id number] 10meq Take 1 U nivers chloride 10 5-10 tablet by ity of mEq CR 00:00: mouth [place] tablet 00 every Medical Saturday, Branch Saturday and Saturday. potassium 2022-0 Yes [id number] 10meq Take 1 U nivers chloride 10 5-10 tablet by ity of mEq CR 00:00: mouth [place] tablet 00 every Medical Saturday, Branch Saturday and Saturday. pioglitazon 2022-0 Yes [id number] 15mg Take 1 Univers e 15 mg 5-09 tablet by ity of tablet 00:00: mouth in [place] the Medical morning. Branch metFORMIN 2022-0 Yes [id number] TAKE 1 U nivers 500 mg 5-09 TABLET BY ity of tablet 00:00: MOUTH IN [place] THE Medical MORNING Branch AND IN THE EVENING WITH MEALS glimepiride 2022-0 Yes [id number] 4mg Take 1 Univers 4 mg tablet 5-09 tablet by ity of 00:00: mouth 00 daily with Medical breakfast. Branch gabapentin 2022-0 Yes [id number] 600mg Take 1 Univers 600 mg 5-09 tablet by ity of tablet 00:00: mouth in [place] the Medical morning Branch and 1 tablet at noon and 1 tablet in the evening. buPROPion 0 Yes [id number] 150mg Take 1 Univers SR 150 mg 5-09 tablet by ity o f SR tablet 00:00: mouth in [facility] 00 the Medical morning Branch and 1 tablet in the evening. diclofenac- 2022-0 Yes [id number] 1{tbl} Take 1 Univers misoprostoL 5-09 tablet by ity of 50-200 00:00: mouth once [place] mg-mcg per 00 daily as Medic al tablet needed Branch (Chronic Pain - Arthritis, multiple joint involvemen t). DULoxetine 2022-0 Yes [id number] 60mg Take 1 Univers 60 mg 5-09 capsule by ity of capsule 00:00: mouth in [place] the Medical morning Branch and 1 capsule in the evening. furosemide 2022-0 Yes [id number] Take lasix Univers (LASIX) 40 5-09 40 mg BID ity of mg tablet 00:00: [place] 00 Medical Branch pioglitazon 2023-0 Yes [id number] 15mg Take 1 Univers e 15 mg 5-09 tablet by ity of tablet 00:00: mouth in [place] 00 the Medical morning. Branch metFORMIN 2022-0 Yes [id number] TAKE 1 U nivers 500 mg 5-09 TABLET BY ity of tablet 00:00: MOUTH IN [place] 00 THE Medical MORNING Branch AND IN THE EVENING WITH MEALS glimepiride 2022-0 Yes [id number] 4mg Take 1 Univers 4 mg tablet 5-09 tablet by ity of 00:00: mouth [place] 00 daily with Medical breakfast. Branch gabapentin Yes [id number] 600mg Take 1 Univers 600 mg 5-09 tablet by ity of tablet 00:00: mouth in [place] 00 the Medical morning Branch and 1 tablet at noon and 1 tablet in the evening. buPROPion Yes [id number] 150mg Take 1 Univers SR 150 mg 5-09 tablet by ity o f SR tablet 00:00: mouth in [facility] 00 the Medical morning Branch and 1 tablet in the evening. diclofenac- Yes [id number] 1{tbl} Take 1 Univers misoprostoL 5-09 tablet by ity of 50-200 00:00: mouth once [place] mg-mcg per 00 daily as Medic al tablet needed Branch (Chronic Pain - Arthritis, multiple joint involvemen t). DULoxetine Yes [id number] 60mg Take 1 Univers 60 mg 5-09 capsule by ity of capsule 00:00: mouth in [place] 00 the Medical morning Branch and 1 capsule in the evening. furosemide 2022-0 Yes [id number] Take lasix Univers (LASIX) 40 5-09 40 mg BID ity of mg tablet 00:00: [place] 00 Medical Branch pioglitazon 2022-0 Yes [id number] 15mg Take 1 Univers e 15 mg 5-09 tablet by ity of tablet 00:00: mouth in [place] 00 the Medical morning. Branch metFORMIN 2022- Yes [id number] TAKE 1 U nivers 500 mg 5-09 TABLET BY ity of tablet 00:00: MOUTH IN [place] 00 THE Medical MORNING Branch AND IN THE EVENING WITH MEALS glimepiride 2022-0 Yes [id number] 4mg Take 1 Univers 4 mg tablet 5-09 tablet by ity of 00:00: mouth [place] 00 daily with Medical breakfast. Branch gabapentin 2022-0 Yes [id number] 600mg Take 1 Univers 600 mg 5-09 tablet by ity of tablet 00:00: mouth in [place] 00 the Medical morning Branch and 1 tablet at noon and 1 tablet in the evening. buPROPion 2022- Yes [id number] 150mg Take 1 Univers SR 150 mg 5-09 tablet by ity o f SR tablet 00:00: mouth in [facility] the Medical morning Branch and 1 tablet in the evening. diclofenac- 2022-0 Yes [id number] 1{tbl} Take 1 Univers misoprostoL 5-09 tablet by ity of 50-200 00:00: mouth once [place] mg-mcg per 00 daily as Medic al tablet needed Branch (Chronic Pain - Arthritis, multiple joint involvemen t). DULoxetine 2022-0 Yes [id number] 60mg Take 1 Univers 60 mg 5-09 capsule by ity of capsule 00:00: mouth in [place] the Medical morning Branch and 1 capsule in the evening. furosemide 2022-0 Yes [id number] Take lasix Univers (LASIX) 40 5-09 40 mg BID ity of mg tablet 00:00: [place] 00 Medical Branch pioglitazon 2022-0 Yes [id number] 15mg Take 1 Univers e 15 mg 5-09 tablet by ity of tablet 00:00: mouth in [place] 00 the Medical morning. Branch metFORMIN 2022-0 Yes [id number] TAKE 1 U nivers 500 mg 5-09 TABLET BY ity of tablet 00:00: MOUTH IN [place] THE Medical MORNING Branch AND IN THE EVENING WITH MEALS glimepiride 2022-0 Yes [id number] 4mg Take 1 Univers 4 mg tablet 5-09 tablet by ity of 00:00: mouth 00 daily with Medical breakfast. Branch gabapentin 2022-0 Yes [id number] 600mg Take 1 Univers 600 mg 5-09 tablet by ity of tablet 00:00: mouth in [place] 00 the Medical morning Branch and 1 tablet at noon and 1 tablet in the evening. buPROPion 2022-0 Yes [id number] 150mg Take 1 Univers SR 150 mg 5-09 tablet by ity o f SR tablet 00:00: mouth in [facility] 00 the Medical morning Branch and 1 tablet in the evening. diclofenac- 2022-0 Yes [id number] 1{tbl} Take 1 Univers misoprostoL 5-09 tablet by ity of 50-200 00:00: mouth once [place] mg-mcg per 00 daily as Medic al tablet needed Branch (Chronic Pain - Arthritis, multiple joint involvemen t). DULoxetine Yes 60mg Take 1 Univers 60 mg 5-09 capsule by ity of capsule 00:00: mouth in [place] 00 the Medical morning Branch and 1 capsule in the evening. furosemide Yes [id number] Take lasix [facility] (LASIX) 40 5-09 40 mg BID [facility] of mg tablet 00:00: [place] 00 [facility] pioglitazon Yes [id number] 15mg Take 1 [facility] e 15 mg 5-09 tablet by [facility] of tablet 00:00: mouth in [place] 00 the Medical morning. Branch metFORMIN Yes [id number] TAKE 1 U nivers 500 mg 5-09 TABLET BY ity of tablet 00:00: MOUTH IN [place] 00 THE Medical MORNING Branch AND IN THE EVENING WITH MEALS glimepiride Yes [id number] 4mg Take 1 [facility] 4 mg tablet 5-09 tablet by ity of 00:00: mouth [place] 00 daily with Medical breakfast. Branch gabapentin Yes 600mg Take 1 [facility] 600 mg 5-09 tablet by it[facility] of tablet 00:00: mouth in [place] 00 the Medical morning Branch and 1 tablet at noon and 1 tablet in the evening. buPROPion Yes [id number] 150mg Take 1 [facility] SR 150 mg 5-09 tablet by ity o f SR tablet 00:00: mouth in [place] [address] the Medical morning Branch and 1 tablet in the evening. diclofenac- Yes [id number] 1{tbl} Take 1 [facility] misoprostoL 5-09 tablet by ity of 50-200 00:00: mouth once [place] mg-mcg per 00 daily as Medic al tablet needed Branch (Chronic Pain - Arthritis, multiple joint involvemen t). DULoxetine Yes 60mg Take 1 [facility] 60 mg 5-09 capsule by ity of capsule 00:00: mouth in [place] [address] the Medical morning Branch and 1 capsule in the evening. furosemide Yes [id number] Take lasix [facility] (LASIX) 40 5-09 40 mg BID it[facility] of mg tablet 00:00: [place] 00 [facility] Branch pioglitazon 2022-0 Yes [id number] 15mg Take 1 [facility] e 15 mg 5-09 tablet by it[facility] of tablet 00:00: mouth in [place] 00 the Medical morning. Branch metFORMIN 2022-0 Yes [id number] TAKE 1 [facility] nivers 500 mg 5-09 TABLET BY ity of tablet 00:00: MOUTH IN [place] 00 THE Medical MORNING Branch AND IN THE EVENING WITH MEALS glimepiride 2022- Yes [id number] 4mg Take 1 [facility] 4 mg tablet 5-09 tablet by ity of 00:00: mouth [place] 00 daily with Medical breakfast. Branch gabapentin 2022- Yes [id number] 600mg Take 1 [facility] 600 mg 5-09 tablet by ity of tablet 00:00: mouth in [place] 00 the Medical morning Branch and 1 tablet at noon and 1 tablet in the evening. buPROPion Yes [id number] 150mg Take 1 [facility] SR 150 mg 5-09 tablet by ity o f SR tablet 00:00: mouth in [facility] the Medical morning Branch and 1 tablet in the evening. diclofenac- Yes [id number] 1{tbl} Take 1 [facility] misoprostoL 5-09 tablet by ity of 50-200 00:00: mouth once [place] mg-mcg per 00 daily as Medic al tablet needed Branch (Chronic Pain - Arthritis, multiple joint involvemen t). DULoxetine Yes [id number] 60mg Take 1 [facility] 60 mg 5- capsule by ity of capsule 00:00: mouth in [place] 00 the Medical morning Branch and 1 capsule in the evening. furosemide 0 Yes [id number] Take lasix [facility] (LASIX) 40 5-09 40 mg BID it[facility] of mg tablet 00:00: [place] 00 Medical Branch pioglitazon 2022-0 Yes [id number] 15mg Take 1 [facility] e 15 mg 5-09 tablet by ity of tablet 00:00: mouth in [place] 00 the Medical morning. Branch metFORMIN 2022-0 Yes [id number] TAKE 1 [facility] nivers 500 mg 5-09 TABLET BY ity of tablet 00:00: MOUTH IN [place] 00 THE Medical MORNING Branch AND IN THE EVENING WITH MEALS glimepiride 2022-0 Yes [id number] 4mg Take 1 [facility] 4 mg tablet 5-09 tablet by ity of 00:00: mouth 00 daily with Medical breakfast. Branch gabapentin 2022-0 Yes [id number] 600mg Take 1 [facility] 600 mg 5-09 tablet by ity of tablet 00:00: mouth in the Medical morning Branch and 1 tablet at noon and 1 tablet in the evening. buPROPion 2022-0 Yes [id number] 150mg Take 1 [facility] SR 150 mg 5-09 tablet by ity o f SR tablet 00:00: mouth in the Medical morning Branch and 1 tablet in the evening. diclofenac- 2022-0 Yes [id number] 1{tbl} Take 1 [facility] misoprostoL 5-09 tablet by ity of 50-200 00:00: mouth once [place] mg-mcg per 00 daily as Medic al tablet needed Branch (Chronic Pain - Arthritis, multiple joint involvemen t). DULoxetine 2022-0 Yes [id number] 60mg Take 1 [facility] 60 mg 5-09 capsule by ity of capsule 00:00: mouth in the Medical morning Branch and 1 capsule in the evening. furosemide 2022-0 Yes [id number] Take lasix [facility] (LASIX) 40 5-09 40 mg BID it[facility] of mg tablet 00:00: [place] [facility] pioglitazon 2022-0 Yes [id number] 15mg Take 1 [facility] e 15 mg 5-09 tablet by ity of tablet 00:00: mouth in 00 the Medical morning. Branch metFORMIN 2022-0 Yes [id number] TAKE 1 [facility] nivers 500 mg 5-09 TABLET BY ity of tablet 00:00: MOUTH IN THE Medical MORNING Branch AND IN THE EVENING WITH MEALS glimepiride 2022-0 Yes [id number] 4mg Take 1 [facility] 4 mg tablet 5-09 tablet by ity of 00:00: mouth 00 daily with Medical breakfast. Branch gabapentin 2022-0 Yes [id number] 600mg Take 1 [facility] 600 mg 5-09 tablet by ity of tablet 00:00: mouth in the Medical morning Branch and 1 tablet at noon and 1 tablet in the evening. buPROPion 2022-0 Yes [id number] 150mg Take 1 [facility] SR 150 mg 5-09 tablet by ity o f SR tablet 00:00: mouth in the Medical morning Branch and 1 tablet in the evening. diclofenac- Yes [id number] 1{tbl} Take 1 [facility] misoprostoL 5-09 tablet by ity of 50-200 00:00: mouth once [place] mg-mcg per 00 daily as Medic al tablet needed Branch (Chronic Pain - Arthritis, multiple joint involvemen t). DULoxetine Yes 60mg Take 1 [facility] 60 mg 5-09 capsule by ity of capsule 00:00: mouth in [place] the Medical morning Branch and 1 capsule in the evening. furosemide Yes [id number] Take lasix [facility] (LASIX) 40 5-09 40 mg BID ity of mg tablet 00:00: [place] 00 Medical Branch pioglitazon Yes [id number] 15mg Take 1 [facility] e 15 mg 5-09 tablet by ity of tablet 00:00: mouth in [place] 00 the Medical morning. Branch metFORMIN Yes [id number] TAKE 1 [facility] nivers 500 mg 5-09 TABLET BY ity of tablet 00:00: MOUTH IN [place] THE Medical MORNING Branch AND IN THE EVENING WITH MEALS glimepiride Yes [id number] 4mg Take 1 [facility] 4 mg tablet 5-09 tablet by ity of 00:00: mouth [place] 00 daily with Medical breakfast. Branch gabapentin Yes [id number] 600mg Take 1 [facility] 600 mg 5-09 tablet by ity of tablet 00:00: mouth in [place] the Medical morning Branch and 1 tablet at noon and 1 tablet in the evening. buPROPion Yes [id number] 150mg Take 1 [facility] SR 150 mg 5-09 tablet by ity o f SR tablet 00:00: mouth in [facility] 00 the Medical morning Branch and 1 tablet in the evening. diclofenac- Yes [id number] 1{tbl} Take 1 [facility] misoprostoL 5-09 tablet by ity of 50-200 00:00: mouth once [place] mg-mcg per 00 daily as Medic al tablet needed Branch (Chronic Pain - Arthritis, multiple joint involvemen t). DULoxetine Yes 60mg Take 1 [facility] 60 mg 5-09 capsule by ity of capsule 00:00: mouth in [place] [address] the Medical morning Branch and 1 capsule in the evening. furosemide 2022-0 Yes [id number] Take lasix [facility] (LASIX) 40 5-09 40 mg BID ity of mg tablet 00:00: [place] 00 Medical Branch pioglitazon 2022-0 Yes [id number] 15mg Take 1 [facility] e 15 mg 5-09 tablet by ity of tablet 00:00: mouth in [place] 00 the Medical morning. Branch metFORMIN 2022-0 Yes [id number] TAKE 1 [facility] nivers 500 mg 5-09 TABLET BY ity of tablet 00:00: MOUTH IN [place] 00 THE Medical MORNING Branch AND IN THE EVENING WITH MEALS glimepiride 2022-0 Yes [id number] 4mg Take 1 [facility] 4 mg tablet 5-09 tablet by ity of 00:00: mouth [place] 00 daily with Medical breakfast. Branch gabapentin 2022- Yes [id number] 600mg Take 1 [facility] 600 mg 5-09 tablet by ity of tablet 00:00: mouth in [place] 00 the Medical morning Branch and 1 tablet at noon and 1 tablet in the evening. buPROPion 2022-0 Yes [id number] 150mg Take 1 [facility] SR 150 mg 5-09 tablet by ity o f SR tablet 00:00: mouth in [facility] 00 the Medical morning Branch and 1 tablet in the evening. diclofenac- Yes [id number] 1{tbl} Take 1 [facility] misoprostoL 5-09 tablet by ity of 50-200 00:00: mouth once [place] mg-mcg per 00 daily as Medic al tablet needed Branch (Chronic Pain - Arthritis, multiple joint involvemen t). DULoxetine 2022- Yes [id number] 60mg Take 1 [facility] 60 mg 5-09 capsule by ity of capsule 00:00: mouth in [place] 00 the Medical morning Branch and 1 capsule in the evening. furosemide Yes [id number] Take lasix [facility] (LASIX) 40 5-09 40 mg BID ity of mg tablet 00:00: [place] 00 Medical Branch pioglitazon 2022-0 Yes [id number] 15mg Take 1 [facility] e 15 mg 5-09 tablet by ity of tablet 00:00: mouth in [place] 00 the Medical morning. Branch metFORMIN 2022-0 Yes [id number] TAKE 1 U nivers 500 mg 5-09 TABLET BY ity of tablet 00:00: MOUTH IN [place] 00 THE Medical MORNING Branch AND IN THE EVENING WITH MEALS glimepiride 2022-0 Yes [id number] 4mg Take 1 [facility] 4 mg tablet 5-09 tablet by ity of 00:00: mouth [place] 00 daily with Medical breakfast. Branch gabapentin 2022-0 Yes [id number] 600mg Take 1 [facility] 600 mg 5-09 tablet by ity of tablet 00:00: mouth in [place] 00 the Medical morning Branch and 1 tablet at noon and 1 tablet in the evening. buPROPion 2022-0 Yes [id number] 150mg Take 1 [facility] SR 150 mg 5-09 tablet by ity o f SR tablet 00:00: mouth [place] 00 the Medical morning Branch and 1 tablet in the evening. furosemide 2022-0 Yes [id number] Take lasix [facility] (LASIX) 40 5-09 40 mg BID ity of mg tablet 00:00: [place] 00 Medical Branch pioglitazon 2022-0 Yes [id number] 15mg Take 1 [facility] e 15 mg 5-09 tablet by ity of tablet 00:00: mouth in [place] 00 the Medical morning. Branch metFORMIN 2022-0 Yes [id number] TAKE 1 [facility] nivers 500 mg 5-09 TABLET BY ity of tablet 00:00: MOUTH IN [place] 00 THE Medical MORNING Branch AND IN THE EVENING WITH MEALS glimepiride 2022-0 Yes [id number] 4mg Take 1 [facility] 4 mg tablet 5-09 tablet by ity of 00:00: mouth [place] 00 daily with Medical breakfast. Branch gabapentin 2022-0 Yes [id number] 600mg Take 1 [facility] 600 mg 5-09 tablet by ity of tablet 00:00: mouth in [place] 00 the Medical morning Branch and 1 tablet at noon and 1 tablet in the evening. buPROPion 2022-0 Yes [id number] 150mg Take 1 [facility] SR 150 mg 5-09 tablet by ity o f SR tablet 00:00: mouth [place] 00 the Medical morning Branch and 1 tablet in the evening. furosemide 2022-0 Yes [id number] Take lasix [facility] (LASIX) 40 5-09 40 mg BID ity of mg tablet 00:00: [place] 00 Medical Branch pioglitazon 2022-0 Yes [id number] 15mg Take 1 [facility] e 15 mg 5-09 tablet by ity of tablet 00:00: mouth in [place] 00 the Medical morning. Branch metFORMIN 2022-0 Yes [id number] TAKE 1 U nivers 500 mg 5-09 TABLET BY ity of tablet 00:00: MOUTH IN [place] 00 THE Medical MORNING Branch AND IN THE EVENING WITH MEALS glimepiride 2022-0 Yes [id number] 4mg Take 1 [facility] 4 mg tablet 5-09 tablet by ity of 00:00: mouth [place] 00 daily with Medical breakfast. Branch gabapentin 2022-0 Yes [id number] 600mg Take 1 [facility] 600 mg 5-09 tablet by ity of tablet 00:00: mouth in [place] 00 the Medical morning Branch and 1 tablet at noon and 1 tablet in the evening. buPROPion 2022-0 Yes [id number] 150mg Take 1 [facility] SR 150 mg 5-09 tablet by ity o f SR tablet 00:00: mouth in [facility] the Medical morning Branch and 1 tablet in the evening. furosemide 2022-0 Yes [id number] Take lasix [facility] (LASIX) 40 5-09 40 mg BID ity of mg tablet 00:00: [place] 00 Medical Branch pioglitazon 2022-0 Yes [id number] 15mg Take 1 [facility] e 15 mg 5-09 tablet by ity of tablet 00:00: mouth in [place] 00 the Medical morning. Branch metFORMIN 2022-0 Yes [id number] TAKE 1 U nivers 500 mg 5-09 TABLET BY ity of tablet 00:00: MOUTH IN [place] 00 THE Medical MORNING Branch AND IN THE EVENING WITH MEALS glimepiride 2022-0 Yes [id number] 4mg Take 1 [facility] 4 mg tablet 5-09 tablet by ity of 00:00: mouth [place] 00 daily with Medical breakfast. Branch gabapentin 2022-0 Yes [id number] 600mg Take 1 [facility] 600 mg 5-09 tablet by ity of tablet 00:00: mouth in [place] 00 the Medical morning Branch and 1 tablet at noon and 1 tablet in the evening. buPROPion 2022-0 Yes [id number] 150mg Take 1 [facility] SR 150 mg 5-09 tablet by ity o f SR tablet 00:00: mouth in [place] [address] the Medical morning Branch and 1 tablet in the evening. furosemide 2022-0 Yes [id number] Take lasix [facility] (LASIX) 40 5-09 40 mg BID ity of mg tablet 00:00: [place] 00 Medical Branch pioglitazon 2023-0 Yes [id number] 15mg Take 1 [facility] e 15 mg 5-09 tablet by ity of tablet 00:00: mouth in [place] 00 the Medical morning. Branch metFORMIN 2022-0 Yes [id number] TAKE 1 U nivers 500 mg 5-09 TABLET BY ity of tablet 00:00: MOUTH IN [place] 00 THE Medical MORNING Branch AND IN THE EVENING WITH MEALS glimepiride 2022-0 Yes [id number] 4mg Take 1 [facility] 4 mg tablet 5-09 tablet by ity of 00:00: mouth [place] 00 daily with Medical breakfast. Branch gabapentin Yes [id number] 600mg Take 1 [facility] 600 mg 5-09 tablet by ity of tablet 00:00: mouth in [place] 00 the Medical morning Branch and 1 tablet at noon and 1 tablet in the evening. buPROPion Yes [id number] 150mg Take 1 [facility] SR 150 mg 5-09 tablet by ity o f SR tablet 00:00: mouth in [facility] 00 the Medical morning Branch and 1 tablet in the evening. diclofenac- Yes [id number] 1{tbl} Take 1 [facility] misoprostoL 5-09 tablet by ity of 50-200 00:00: mouth once [place] mg-mcg per 00 daily as Medic al tablet needed Branch (Chronic Pain - Arthritis, multiple joint involvemen t). DULoxetine Yes [id number] 60mg Take 1 [facility] 60 mg 5-09 capsule by ity of capsule 00:00: mouth in [place] 00 the Medical morning Branch and 1 capsule in the evening. furosemide 2022-0 Yes [id number] Take lasix [facility] (LASIX) 40 5-09 40 mg BID ity of mg tablet 00:00: [place] 00 Medical Branch pioglitazon 2022-0 Yes [id number] 15mg Take 1 [facility] e 15 mg 5-09 tablet by ity of tablet 00:00: mouth in [place] 00 the Medical morning. Branch metFORMIN 2022- Yes [id number] TAKE 1 U nivers 500 mg 5-09 TABLET BY ity of tablet 00:00: MOUTH IN [place] 00 THE Medical MORNING Branch AND IN THE EVENING WITH MEALS glimepiride 2022-0 Yes [id number] 4mg Take 1 [facility] 4 mg tablet 5-09 tablet by ity of 00:00: mouth [place] 00 daily with Medical breakfast. Branch gabapentin 2022-0 Yes [id number] 600mg Take 1 [facility] 600 mg 5-09 tablet by ity of tablet 00:00: mouth in [place] 00 the Medical morning Branch and 1 tablet at noon and 1 tablet in the evening. buPROPion 2022- Yes [id number] 150mg Take 1 [facility] SR 150 mg 5-09 tablet by ity o f SR tablet 00:00: mouth in [facility] the Medical morning Branch and 1 tablet in the evening. diclofenac- 2022-0 Yes [id number] 1{tbl} Take 1 [facility] misoprostoL 5-09 tablet by ity of 50-200 00:00: mouth once [place] mg-mcg per 00 daily as Medic al tablet needed Branch (Chronic Pain - Arthritis, multiple joint involvemen t). DULoxetine 2022-0 Yes [id number] 60mg Take 1 [facility] 60 mg 5-09 capsule by ity of capsule 00:00: mouth in [place] the Medical morning Branch and 1 capsule in the evening. furosemide 2022-0 Yes [id number] Take lasix [facility] (LASIX) 40 5-09 40 mg BID ity of mg tablet 00:00: [place] 00 Medical Branch pioglitazon 2022-0 Yes [id number] 15mg Take 1 [facility] e 15 mg 5-09 tablet by ity of tablet 00:00: mouth in [place] 00 the Medical morning. Branch metFORMIN 2022-0 Yes [id number] TAKE 1 U nivers 500 mg 5-09 TABLET BY ity of tablet 00:00: MOUTH IN [place] THE Medical MORNING Branch AND IN THE EVENING WITH MEALS glimepiride 2022-0 Yes [id number] 4mg Take 1 [facility] 4 mg tablet 5-09 tablet by ity of 00:00: mouth 00 daily with Medical breakfast. Branch gabapentin 2022-0 Yes [id number] 600mg Take 1 [facility] 600 mg 5-09 tablet by ity of tablet 00:00: mouth in [place] 00 the Medical morning Branch and 1 tablet at noon and 1 tablet in the evening. buPROPion 2022-0 Yes [id number] 150mg Take 1 [facility] SR 150 mg 5-09 tablet by ity o f SR tablet 00:00: mouth in [facility] 00 the Medical morning Branch and 1 tablet in the evening. diclofenac- 2022-0 Yes [id number] 1{tbl} Take 1 [facility] misoprostoL 5-09 tablet by ity of 50-200 00:00: mouth once [place] mg-mcg per 00 daily as Medic al tablet needed Branch (Chronic Pain - Arthritis, multiple joint involvemen t). DULoxetine Yes 60mg Take 1 [facility] 60 mg 5-09 capsule by ity of capsule 00:00: mouth in [place] 00 the Medical morning Branch and 1 capsule in the evening. furosemide Yes [id number] Take lasix [facility] (LASIX) 40 5-09 40 mg BID ity of mg tablet 00:00: [place] 00 Medical Branch pioglitazon Yes [id number] 15mg Take 1 [facility] e 15 mg 5-09 tablet by ity of tablet 00:00: mouth in [place] 00 the Medical morning. Branch metFORMIN Yes [id number] TAKE 1 U nivers 500 mg 5-09 TABLET BY ity of tablet 00:00: MOUTH IN [place] 00 THE Medical MORNING Branch AND IN THE EVENING WITH MEALS glimepiride Yes [id number] 4mg Take 1 [facility] 4 mg tablet 5-09 tablet by ity of 00:00: mouth [place] 00 daily with Medical breakfast. Branch gabapentin Yes 600mg Take 1 [facility] 600 mg 5-09 tablet by ity of tablet 00:00: mouth in [place] 00 the Medical morning Branch and 1 tablet at noon and 1 tablet in the evening. buPROPion Yes [id number] 150mg Take 1 [facility] SR 150 mg 5-09 tablet by ity o f SR tablet 00:00: mouth in [place] [address] the Medical morning Branch and 1 tablet in the evening. diclofenac- Yes [id number] 1{tbl} Take 1 [facility] misoprostoL 5-09 tablet by ity of 50-200 00:00: mouth once [place] mg-mcg per 00 daily as Medic al tablet needed Branch (Chronic Pain - Arthritis, multiple joint involvemen t). DULoxetine Yes 60mg Take 1 [facility] 60 mg 5-09 capsule by ity of capsule 00:00: mouth in [place] [address] the Medical morning Branch and 1 capsule in the evening. furosemide Yes [id number] Take lasix [facility] (LASIX) 40 5-09 40 mg BID ity of mg tablet 00:00: [place] 00 Medical Branch pioglitazon 2022-0 Yes [id number] 15mg Take 1 [facility] e 15 mg 5-09 tablet by ity of tablet 00:00: mouth in [place] 00 the Medical morning. Branch metFORMIN 2022-0 Yes [id number] TAKE 1 U nivers 500 mg 5-09 TABLET BY ity of tablet 00:00: MOUTH IN [place] 00 THE Medical MORNING Branch AND IN THE EVENING WITH MEALS glimepiride 2022- Yes [id number] 4mg Take 1 [facility] 4 mg tablet 5-09 tablet by ity of 00:00: mouth [place] 00 daily with Medical breakfast. Branch gabapentin 2022- Yes [id number] 600mg Take 1 [facility] 600 mg 5-09 tablet by ity of tablet 00:00: mouth in [place] 00 the Medical morning Branch and 1 tablet at noon and 1 tablet in the evening. buPROPion Yes [id number] 150mg Take 1 [facility] SR 150 mg 5-09 tablet by ity o f SR tablet 00:00: mouth in [facility] the Medical morning Branch and 1 tablet in the evening. diclofenac- Yes [id number] 1{tbl} Take 1 [facility] misoprostoL 5-09 tablet by ity of 50-200 00:00: mouth once [place] mg-mcg per 00 daily as Medic al tablet needed Branch (Chronic Pain - Arthritis, multiple joint involvemen t). DULoxetine Yes [id number] 60mg Take 1 [facility] 60 mg 5- capsule by ity of capsule 00:00: mouth in [place] 00 the Medical morning Branch and 1 capsule in the evening. furosemide 0 Yes [id number] Take lasix [facility] (LASIX) 40 5-09 40 mg BID ity of mg tablet 00:00: [place] 00 Medical Branch pioglitazon 2022-0 Yes [id number] 15mg Take 1 [facility] e 15 mg 5-09 tablet by ity of tablet 00:00: mouth in [place] 00 the Medical morning. Branch metFORMIN 2022-0 Yes [id number] TAKE 1 U nivers 500 mg 5-09 TABLET BY ity of tablet 00:00: MOUTH IN [place] 00 THE Medical MORNING Branch AND IN THE EVENING WITH MEALS glimepiride 2022-0 Yes [id number] 4mg Take 1 [facility] 4 mg tablet 5-09 tablet by ity of 00:00: mouth 00 daily with Medical breakfast. Branch gabapentin 2022-0 Yes [id number] 600mg Take 1 [facility] 600 mg 5-09 tablet by ity of tablet 00:00: mouth in the Medical morning Branch and 1 tablet at noon and 1 tablet in the evening. buPROPion 2022-0 Yes [id number] 150mg Take 1 [facility] SR 150 mg 5-09 tablet by ity o f SR tablet 00:00: mouth in the Medical morning Branch and 1 tablet in the evening. diclofenac- 2022-0 Yes [id number] 1{tbl} Take 1 [facility] misoprostoL 5-09 tablet by ity of 50-200 00:00: mouth once [place] mg-mcg per 00 daily as Medic al tablet needed Branch (Chronic Pain - Arthritis, multiple joint involvemen t). DULoxetine 2022-0 Yes [id number] 60mg Take 1 [facility] 60 mg 5-09 capsule by ity of capsule 00:00: mouth in the Medical morning Branch and 1 capsule in the evening. furosemide 2022-0 Yes [id number] Take lasix [facility] (LASIX) 40 5-09 40 mg BID ity of mg tablet 00:00: [place] [facility] Branch pioglitazon 2022-0 Yes [id number] 15mg Take 1 [facility] e 15 mg 5-09 tablet by ity of tablet 00:00: mouth in 00 the Medical morning. Branch metFORMIN 2022-0 Yes [id number] TAKE 1 U nivers 500 mg 5-09 TABLET BY ity of tablet 00:00: MOUTH IN THE Medical MORNING Branch AND IN THE EVENING WITH MEALS glimepiride 2022-0 Yes [id number] 4mg Take 1 [facility] 4 mg tablet 5-09 tablet by ity of 00:00: mouth 00 daily with Medical breakfast. Branch gabapentin 2022-0 Yes [id number] 600mg Take 1 [facility] 600 mg 5-09 tablet by ity of tablet 00:00: mouth in the Medical morning Branch and 1 tablet at noon and 1 tablet in the evening. buPROPion 2022-0 Yes [id number] 150mg Take 1 [facility] SR 150 mg 5-09 tablet by ity o f SR tablet 00:00: mouth in the Medical morning Branch and 1 tablet in the evening. diclofenac- Yes [id number] 1{tbl} Take 1 [facility] misoprostoL 5-09 tablet by ity of 50-200 00:00: mouth once [place] mg-mcg per 00 daily as Medic al tablet needed Branch (Chronic Pain - Arthritis, multiple joint involvemen t). DULoxetine Yes 60mg Take 1 [facility] 60 mg 5-09 capsule by ity of capsule 00:00: mouth in [place] the Medical morning Branch and 1 capsule in the evening. furosemide Yes [id number] Take lasix [facility] (LASIX) 40 5-09 40 mg BID ity of mg tablet 00:00: [place] 00 Medical Branch pioglitazon Yes [id number] 15mg Take 1 [facility] e 15 mg 5-09 tablet by ity of tablet 00:00: mouth in [place] 00 the Medical morning. Branch metFORMIN Yes [id number] TAKE 1 U nivers 500 mg 5-09 TABLET BY ity of tablet 00:00: MOUTH IN [place] THE Medical MORNING Branch AND IN THE EVENING WITH MEALS glimepiride Yes [id number] 4mg Take 1 [facility] 4 mg tablet 5-09 tablet by ity of 00:00: mouth [place] 00 daily with Medical breakfast. Branch gabapentin Yes [id number] 600mg Take 1 [facility] 600 mg 5-09 tablet by ity of tablet 00:00: mouth in [place] the Medical morning Branch and 1 tablet at noon and 1 tablet in the evening. buPROPion Yes [id number] 150mg Take 1 [facility] SR 150 mg 5-09 tablet by ity o f SR tablet 00:00: mouth in [facility] 00 the Medical morning Branch and 1 tablet in the evening. diclofenac- Yes [id number] 1{tbl} Take 1 [facility] misoprostoL 5-09 tablet by ity of 50-200 00:00: mouth once [place] mg-mcg per 00 daily as Medic al tablet needed Branch (Chronic Pain - Arthritis, multiple joint involvemen t). DULoxetine Yes 60mg Take 1 [facility] 60 mg 5-09 capsule by ity of capsule 00:00: mouth in [place] [address] the Medical morning Branch and 1 capsule in the evening. furosemide 2022-0 Yes [id number] Take lasix [facility] (LASIX) 40 5-09 40 mg BID ity of mg tablet 00:00: [place] 00 Medical Branch pioglitazon 2022-0 Yes [id number] 15mg Take 1 [facility] e 15 mg 5-09 tablet by ity of tablet 00:00: mouth in [place] 00 the Medical morning. Branch metFORMIN 2022-0 Yes [id number] TAKE 1 U nivers 500 mg 5-09 TABLET BY ity of tablet 00:00: MOUTH IN [place] 00 THE Medical MORNING Branch AND IN THE EVENING WITH MEALS glimepiride 2022-0 Yes [id number] 4mg Take 1 [facility] 4 mg tablet 5-09 tablet by ity of 00:00: mouth [place] 00 daily with Medical breakfast. Branch gabapentin 2022- Yes [id number] 600mg Take 1 [facility] 600 mg 5-09 tablet by ity of tablet 00:00: mouth in [place] 00 the Medical morning Branch and 1 tablet at noon and 1 tablet in the evening. buPROPion 2022-0 Yes [id number] 150mg Take 1 [facility] SR 150 mg 5-09 tablet by ity o f SR tablet 00:00: mouth in [facility] 00 the Medical morning Branch and 1 tablet in the evening. diclofenac- Yes [id number] 1{tbl} Take 1 [facility] misoprostoL 5-09 tablet by ity of 50-200 00:00: mouth once [place] mg-mcg per 00 daily as Medic al tablet needed Branch (Chronic Pain - Arthritis, multiple joint involvemen t). DULoxetine 2022- Yes [id number] 60mg Take 1 [facility] 60 mg 5-09 capsule by ity of capsule 00:00: mouth in [place] 00 the Medical morning Branch and 1 capsule in the evening. furosemide Yes [id number] Take lasix [facility] (LASIX) 40 5-09 40 mg BID ity of mg tablet 00:00: [place] 00 Medical Branch pioglitazon 2022-0 Yes [id number] 15mg Take 1 [facility] e 15 mg 5-09 tablet by ity of tablet 00:00: mouth in [place] 00 the Medical morning. Branch metFORMIN 2022-0 Yes [id number] TAKE 1 U n[facility] 500 mg 5-09 TABLET BY ity of tablet 00:00: MOUTH IN [place] 00 THE Medical MORNING Branch AND IN THE EVENING WITH MEALS glimepiride 0 Yes [id number] 4mg Take 1 [facility] 4 mg tablet 5-09 tablet by ity of 00:00: mouth [place] 00 daily with Medical breakfast. Branch gabapentin Yes [id number] 600mg Take 1 [facility] 600 mg 5-09 tablet by ity of tablet 00:00: mouth in [place] 00 the Medical morning Branch and 1 tablet at noon and 1 tablet in the evening. buPROPion 0 Yes [id number] 150mg Take 1 [facility] SR 150 mg 5-09 tablet by ity o f SR tablet 00:00: [place] 00 the Medical morning Branch and 1 tablet in the evening. diclofenac- Yes [id number] 1{tbl} Take 1 [facility] misoprostoL 5-09 tablet by ity of 50-200 00:00: mouth once [place] mg-mcg per 00 daily as Medic al tablet needed Branch (Chronic Pain - Arthritis, multiple joint involvemen t). DULoxetine 0 Yes [id number] 60mg Take 1 [facility] 60 mg 5-09 capsule by ity of capsule 00:00: mouth in [place] 00 the Medical morning Branch and 1 capsule in the evening. furosemide 0 Yes [id number] Take lasix [facility] (LASIX) 40 5-09 40 mg BID ity of mg tablet 00:00: [place] 00 [facility] Branch diclofenac- 0 2022- No [id number] 1{tbl} Take 1 [facility] misoprostoL 5-09 06-23 tablet by it y of 50-200 00:00: 00:[place] mouth [place] mg-mcg per 00 :00 daily as Medic al tablet needed Branch (Chronic Pain - Arthritis, multiple joint involvemen t). DULoxetine 2022- No [id number] 60mg Take 1 [facility] 60 mg 5-09 06-23 capsule by ity of capsule 00:00: 00:00 mouth in [place] 00 :00 the Medical morning Branch and 1 capsule in the evening. FLUTICASONE 0 Yes [id number] SHAKE Univers PROPIONATE 3-28 LIQUID AND ity of 50 00:00: USE 2 [place] mcg/actuati 00 SPRAYS IN Med ical on nasal EACH Branch spray NOSTRIL EVERY DAY FLUTICASONE 0 Yes [id number] SHAKE Univers PROPIONATE 3-28 LIQUID AND ity of 50 00:00: USE 2 [place] mcg/actuati 00 SPRAYS IN Med ical on nasal EACH Branch spray NOSTRIL EVERY DAY FLUTICASONE 0 Yes [id number] SHAKE Univers PROPIONATE 3-28 LIQUID AND ity of 50 00:00: USE 2 [place] mcg/actuati 00 SPRAYS IN Med ical on nasal EACH Branch spray NOSTRIL EVERY DAY FLUTICASONE Yes [id number] SHAKE Univers PROPIONATE 3-28 LIQUID AND ity of 50 00:00: USE 2 [place] mcg/actuati 00 SPRAYS IN Med ical on nasal EACH Branch spray NOSTRIL EVERY DAY FLUTICASONE Yes [id number] SHAKE Univers PROPIONATE 3-28 LIQUID AND ity of 50 00:00: USE 2 [place] mcg/actuati 00 SPRAYS IN Med ical on nasal EACH Branch spray NOSTRIL EVERY DAY FLUTICASONE Yes [id number] SHAKE Univers PROPIONATE 3-28 LIQUID AND ity of 50 00:00: USE 2 [place] mcg/actuati 00 SPRAYS IN Med ical on nasal EACH Branch spray NOSTRIL EVERY DAY FLUTICASONE Yes [id number] SHAKE Univers PROPIONATE 3-28 LIQUID AND ity of 50 00:00: USE 2 [place] mcg/actuati 00 SPRAYS IN Med ical on nasal EACH Branch spray NOSTRIL EVERY DAY FLUTICASONE 0 Yes [id number] SHAKE Univers PROPIONATE 3-28 LIQUID AND ity of 50 00:00: USE 2 [place] mcg/actuati 00 SPRAYS IN Med ical on nasal EACH Branch spray NOSTRIL EVERY DAY FLUTICASONE 0 Yes [id number] SHAKE Univers PROPIONATE 3-28 LIQUID AND ity of 50 00:00: USE 2 [place] mcg/actuati 00 SPRAYS IN Med ical on nasal EACH Branch spray NOSTRIL EVERY DAY FLUTICASONE 0 Yes [id number] SHAKE Univers PROPIONATE 3-28 LIQUID AND ity of 50 00:00: USE 2 [place] mcg/actuati 00 SPRAYS IN Med ical on nasal EACH Branch spray NOSTRIL EVERY DAY FLUTICASONE 0 Yes [id number] SHAKE Univers PROPIONATE 3-28 LIQUID AND ity of 50 00:00: USE 2 [place] mcg/actuati 00 SPRAYS IN Med ical on nasal EACH Branch spray NOSTRIL EVERY DAY FLUTICASONE Yes [id number] SHAKE Univers PROPIONATE 3-28 LIQUID AND ity of 50 00:00: USE 2 [place] mcg/actuati 00 SPRAYS IN Med ical on nasal EACH Branch spray NOSTRIL EVERY DAY FLUTICASONE 0 Yes [id number] SHAKE Univers PROPIONATE 3-28 LIQUID AND ity of 50 00:00: USE 2 [place] mcg/actuati 00 SPRAYS IN Med ical on nasal EACH Branch spray NOSTRIL EVERY DAY FLUTICASONE Yes [id number] SHAKE Univers PROPIONATE 3-28 LIQUID AND ity of 50 00:00: USE 2 [place] mcg/actuati 00 SPRAYS IN Med ical on nasal EACH Branch spray NOSTRIL EVERY DAY FLUTICASONE Yes [id number] SHAKE Univers PROPIONATE 3-28 LIQUID AND ity of 50 00:00: USE 2 [place] mcg/actuati 00 SPRAYS IN Med ical on nasal EACH Branch spray NOSTRIL EVERY DAY FLUTICASONE Yes [id number] SHAKE Univers PROPIONATE 3-28 LIQUID AND ity of 50 00:00: USE 2 [place] mcg/actuati 00 SPRAYS IN Med ical on nasal EACH Branch spray NOSTRIL EVERY DAY FLUTICASONE 0 Yes [id number] SHAKE Univers PROPIONATE 3-28 LIQUID AND ity of 50 00:00: USE 2 [place] mcg/actuati 00 SPRAYS IN Med ical on nasal EACH Branch spray NOSTRIL EVERY DAY FLUTICASONE 0 Yes [id number] SHAKE Univers PROPIONATE 3-28 LIQUID AND ity of 50 00:00: USE 2 [place] mcg/actuati 00 SPRAYS IN Med ical on nasal EACH Branch spray NOSTRIL EVERY DAY FLUTICASONE 0 Yes [id number] SHAKE Univers PROPIONATE 3-28 LIQUID AND ity of 50 00:00: USE 2 [place] mcg/actuati 00 SPRAYS IN Med ical on nasal EACH Branch spray NOSTRIL EVERY DAY FLUTICASONE 0 Yes [id number] SHAKE Univers PROPIONATE 3-28 LIQUID AND ity of 50 00:00: USE 2 [place] mcg/actuati 00 SPRAYS IN Med ical on nasal EACH Branch spray NOSTRIL EVERY DAY FLUTICASONE Yes [id number] SHAKE Univers PROPIONATE 3-28 LIQUID AND ity of 50 00:00: USE 2 [place] mcg/actuati 00 SPRAYS IN Med ical on nasal EACH Branch spray NOSTRIL EVERY DAY FLUTICASONE Yes [id number] SHAKE Univers PROPIONATE 3-28 LIQUID AND ity of 50 00:00: USE 2 [place] mcg/actuati 00 SPRAYS IN Med ical on nasal EACH Branch spray NOSTRIL EVERY DAY FLUTICASONE Yes [id number] SHAKE Univers PROPIONATE 3-28 LIQUID AND ity of 50 00:00: USE 2 [place] mcg/actuati 00 SPRAYS IN Med ical on nasal EACH Branch spray NOSTRIL EVERY DAY FLUTICASONE Yes [id number] SHAKE Univers PROPIONATE 3-28 LIQUID AND ity of 50 00:00: USE 2 [place] mcg/actuati 00 SPRAYS IN Med ical on nasal EACH Branch spray NOSTRIL EVERY DAY FLUTICASONE Yes [id number] SHAKE Univers PROPIONATE 3-28 LIQUID AND ity of 50 00:00: USE 2 [place] mcg/actuati 00 SPRAYS IN Med ical on nasal EACH Branch spray NOSTRIL EVERY DAY FLUTICASONE Yes [id number] SHAKE Univers PROPIONATE 3-28 LIQUID AND ity of 50 00:00: USE 2 [place] mcg/actuati 00 SPRAYS IN Med ical on nasal EACH Branch spray NOSTRIL EVERY DAY FLUTICASONE Yes [id number] SHAKE Univers PROPIONATE 3-28 LIQUID AND ity of 50 00:00: USE 2 [place] mcg/actuati 00 SPRAYS IN Med ical on nasal EACH Branch spray NOSTRIL EVERY DAY FLUTICASONE Yes [id number] SHAKE Univers PROPIONATE 3-28 LIQUID AND ity of 50 00:00: USE 2 [place] mcg/actuati 00 SPRAYS IN Med ical on nasal EACH Branch spray NOSTRIL EVERY DAY FLUTICASONE Yes [id number] SHAKE Univers PROPIONATE 3-28 LIQUID AND ity of 50 00:00: USE 2 [place] mcg/actuati 00 SPRAYS IN Med ical on nasal EACH Branch spray NOSTRIL EVERY DAY FLUTICASONE 2023-0 Yes [id number] SHAKE Univers PROPIONATE 3-28 LIQUID AND ity of 50 00:00: USE 2 [place] mcg/actuati 00 SPRAYS IN Med ical on nasal EACH Branch spray NOSTRIL EVERY DAY ergocalcife 2023-0 Yes [id number] Take 1 [facility] rol, 3-19 capsule by ity of vitamin d2, 00:00: mouth [place] 1,250 mcg 00 weekly. Medical (50,000 Branch unit) capsule calcium 2023-0 Yes [id number] 500mg Take 1 Uni vers carbonate 3-19 tablet by ity o f (CALCIUM 00:00: mouth in [place] 500) 500 mg 00 the Medical calcium morning. Branch (1,250 mg) tablet ergocalcife 2023-0 Yes [id number] Take 1 [facility] rol, 3-19 capsule by ity of vitamin d2, 00:00: mouth [place] 1,250 mcg 00 weekly. Medical (50,000 Branch unit) capsule calcium 2023-0 Yes [id number] 500mg Take 1 [facility] vers carbonate 3-19 tablet by ity o f (CALCIUM 00:00: mouth in [place] 500) 500 mg 00 the Medical calcium morning. Branch (1,250 mg) tablet ergocalcife 2023-0 Yes [id number] Take 1 [facility] rol, 3-19 capsule by ity of vitamin d2, 00:00: mouth [place] 1,250 mcg 00 weekly. Medical (50,000 Branch unit) capsule calcium 3-0 Yes [id number] 500mg Take 1 [facility] vers carbonate 3-19 tablet by ity o f (CALCIUM 00:00: mouth in [place] 500) 500 mg 00 the Medical calcium morning. Branch (1,250 mg) tablet ergocalcife 2023-0 Yes [id number] Take 1 [facility] rol, 3-19 capsule by ity of vitamin d2, 00:00: mouth [place] 1,250 mcg 00 weekly. Medical (50,000 Branch unit) capsule calcium 2023-0 Yes [id number] 500mg Take 1 Uni vers carbonate 3-19 tablet by ity o f (CALCIUM 00:00: mouth in [place] 500) 500 mg 00 the Medical calcium morning. Branch (1,250 mg) tablet ergocalcife 2023-0 Yes [id number] Take 1 [facility] rol, 3-19 capsule by ity of vitamin d2, 00:00: mouth [place] 1,250 mcg 00 weekly. Medical (50,000 Branch unit) capsule calcium 2023-0 Yes [id number] 500mg Take 1 [facility] vers carbonate 3-19 tablet by ity o f (CALCIUM 00:00: mouth in [place] 500) 500 mg 00 the Medical calcium morning. Branch (1,250 mg) tablet ergocalcife 2023-0 Yes [id number] Take 1 [facility] rol, 3-19 capsule by ity of vitamin d2, 00:00: mouth [place] 1,250 mcg 00 weekly. Medical (50,000 Branch unit) capsule calcium 2023-0 Yes [id number] 500mg Take 1 [facility] vers carbonate 3-19 tablet by ity o f (CALCIUM 00:00: mouth in [place] 500) 500 mg 00 the Medical calcium morning. Branch (1,250 mg) tablet ergocalcife 2023-0 Yes [id number] Take 1 [facility] rol, 3-19 capsule by ity of vitamin d2, 00:00: mouth [place] 1,250 mcg 00 weekly. Medical (50,000 Branch unit) capsule calcium 2023-0 Yes [id number] 500mg Take 1 [facility] vers carbonate 3-19 tablet by ity o f (CALCIUM 00:00: mouth in [place] 500) 500 mg 00 the Medical calcium morning. Branch (1,250 mg) tablet ergocalcife 2023-0 Yes [id number] Take 1 [facility] rol, 3-19 capsule by ity of vitamin d2, 00:00: mouth [place] 1,250 mcg 00 weekly. Medical (50,000 Branch unit) capsule calcium 2023-0 Yes [id number] 500mg Take 1 [facility] vers carbonate 3-19 tablet by ity o f (CALCIUM 00:00: mouth in [place] 500) 500 mg 00 the Medical calcium morning. Branch (1,250 mg) tablet ergocalcife 2023-0 Yes [id number] Take 1 [facility] rol, 3-19 capsule by ity of vitamin d2, 00:00: mouth [place] 1,250 mcg 00 weekly. Medical (50,000 Branch unit) capsule calcium 2023-0 Yes [id number] 500mg Take 1 [facility] vers carbonate 3-19 tablet by ity o f (CALCIUM 00:00: mouth in [place] 500) 500 mg 00 the Medical calcium morning. Branch (1,250 mg) tablet ergocalcife 2023-0 Yes [id number] Take 1 [facility] rol, 3-19 capsule by ity of vitamin d2, 00:00: mouth [place] 1,250 mcg 00 weekly. Medical (50,000 Branch unit) capsule calcium 2023-0 Yes [id number] 500mg Take 1 [facility] vers carbonate 3-19 tablet by ity o f (CALCIUM 00:00: mouth in [place] 500) 500 mg 00 the Medical calcium morning. Branch (1,250 mg) tablet ergocalcife 2023-0 Yes [id number] Take 1 [facility] rol, 3-19 capsule by ity of vitamin d2, 00:00: mouth [place] 1,250 mcg 00 weekly. Medical (50,000 Branch unit) capsule calcium 2023-0 Yes [id number] 500mg Take 1 [facility] vers carbonate 3-19 tablet by ity o f (CALCIUM 00:00: mouth in [place] 500) 500 mg 00 the Medical calcium morning. Branch (1,250 mg) tablet ergocalcife 2023-0 Yes [id number] Take 1 [facility] rol, 3-19 capsule by ity of vitamin d2, 00:00: mouth [place] 1,250 mcg 00 weekly. Medical (50,000 Branch unit) capsule calcium 2023-0 Yes [id number] 500mg Take 1 [facility] vers carbonate 3-19 tablet by ity o f (CALCIUM 00:00: mouth in [place] 500) 500 mg 00 the Medical calcium morning. Branch (1,250 mg) tablet ergocalcife 2023-0 Yes [id number] Take 1 [facility] rol, 3-19 capsule by ity of vitamin d2, 00:00: mouth [place] 1,250 mcg 00 weekly. Medical (50,000 Branch unit) capsule calcium 2023-0 Yes [id number] 500mg Take 1 [facility] vers carbonate 3-19 tablet by ity o f (CALCIUM 00:00: mouth in [place] 500) 500 mg 00 the Medical calcium morning. Branch (1,250 mg) tablet ergocalcife 2023-0 Yes [id number] Take 1 [facility] rol, 3-19 capsule by ity of vitamin d2, 00:00: mouth [place] 1,250 mcg 00 weekly. Medical (50,000 Branch unit) capsule calcium 2023-0 Yes [id number] 500mg Take 1 [facility] vers carbonate 3-19 tablet by ity o f (CALCIUM 00:00: mouth in [place] 500) 500 mg 00 the Medical calcium morning. Branch (1,250 mg) tablet ergocalcife 2023-0 Yes [id number] Take 1 [facility] rol, 3-19 capsule by ity of vitamin d2, 00:00: mouth [place] 1,250 mcg 00 weekly. Medical (50,000 Branch unit) capsule calcium 2023-0 Yes [id number] 500mg Take 1 [facility] vers carbonate 3-19 tablet by ity o f (CALCIUM 00:00: mouth in [place] 500) 500 mg 00 the Medical calcium morning. Branch (1,250 mg) tablet ergocalcife 2023-0 Yes [id number] Take 1 [facility] rol, 3-19 capsule by ity of vitamin d2, 00:00: mouth [place] 1,250 mcg 00 weekly. Medical (50,000 Branch unit) capsule calcium 2023-0 Yes [id number] 500mg Take 1 [facility] vers carbonate 3-19 tablet by ity o f (CALCIUM 00:00: mouth in [place] 500) 500 mg 00 the Medical calcium morning. Branch (1,250 mg) tablet ergocalcife 2023-0 Yes [id number] Take 1 [facility] rol, 3-19 capsule by ity of vitamin d2, 00:00: mouth [place] 1,250 mcg 00 weekly. Medical (50,000 Branch unit) capsule calcium 2023-0 Yes [id number] 500mg Take 1 [facility] vers carbonate 3-19 tablet by ity o f (CALCIUM 00:00: mouth in [place] 500) 500 mg 00 the Medical calcium morning. Branch (1,250 mg) tablet ergocalcife 2023-0 Yes [id number] Take 1 [facility] rol, 3-19 capsule by ity of vitamin d2, 00:00: mouth [place] 1,250 mcg 00 weekly. Medical (50,000 Branch unit) capsule calcium 2023-0 Yes [id number] 500mg Take 1 [facility] vers carbonate 3-19 tablet by ity o f (CALCIUM 00:00: mouth in [place] 500) 500 mg 00 the Medical calcium morning. Branch (1,250 mg) tablet ergocalcife 2023-0 Yes [id number] Take 1 [facility] rol, 3-19 capsule by ity of vitamin d2, 00:00: mouth [place] 1,250 mcg 00 weekly. Medical (50,000 Branch unit) capsule calcium 2023-0 Yes [id number] 500mg Take 1 [facility] vers carbonate 3-19 tablet by ity o f (CALCIUM 00:00: mouth in [place] 500) 500 mg 00 the Medical calcium morning. Branch (1,250 mg) tablet ergocalcife 2023-0 Yes [id number] Take 1 [facility] rol, 3-19 capsule by ity of vitamin d2, 00:00: mouth [place] 1,250 mcg 00 weekly. Medical (50,000 Branch unit) capsule calcium 2023-0 Yes [id number] 500mg Take 1 [facility] vers carbonate 3-19 tablet by ity o f (CALCIUM 00:00: mouth in [place] 500) 500 mg 00 the Medical calcium morning. Branch (1,250 mg) tablet ergocalcife 2023-0 Yes [id number] Take 1 [facility] rol, 3-19 capsule by ity of vitamin d2, 00:00: mouth [place] 1,250 mcg 00 weekly. Medical (50,000 Branch unit) capsule calcium 2023-0 Yes [id number] 500mg Take 1 [facility] vers carbonate 3-19 tablet by ity o f (CALCIUM 00:00: mouth in [place] 500) 500 mg 00 the Medical calcium morning. Branch (1,250 mg) tablet ergocalcife 2023-0 Yes [id number] Take 1 [facility] rol, 3-19 capsule by ity of vitamin d2, 00:00: mouth [place] 1,250 mcg 00 weekly. Medical (50,000 Branch unit) capsule calcium 2023-0 Yes [id number] 500mg Take 1 [facility] vers carbonate 3-19 tablet by ity o f (CALCIUM 00:00: mouth in [place] 500) 500 mg 00 the Medical calcium morning. Branch (1,250 mg) tablet ergocalcife 2023-0 Yes [id number] Take 1 [facility] rol, 3-19 capsule by ity of vitamin d2, 00:00: mouth [place] 1,250 mcg 00 weekly. Medical (50,000 Branch unit) capsule calcium 2023-0 Yes [id number] 500mg Take 1 [facility] vers carbonate 3-19 tablet by ity o f (CALCIUM 00:00: mouth in [place] 500) 500 mg 00 the Medical calcium morning. Branch (1,250 mg) tablet ergocalcife 2023-0 Yes [id number] Take 1 [facility] rol, 3-19 capsule by ity of vitamin d2, 00:00: mouth [place] 1,250 mcg 00 weekly. Medical (50,000 Branch unit) capsule calcium 2023-0 Yes [id number] 500mg Take 1 [facility] vers carbonate 3-19 tablet by ity o f (CALCIUM 00:00: mouth in [place] 500) 500 mg 00 the Medical calcium morning. Branch (1,250 mg) tablet ergocalcife 2023-0 Yes [id number] Take 1 [facility] rol, 3-19 capsule by ity of vitamin d2, 00:00: mouth [place] 1,250 mcg 00 weekly. Medical (50,000 Branch unit) capsule calcium 2023-0 Yes [id number] 500mg Take 1 [facility] vers carbonate 3-19 tablet by ity o f (CALCIUM 00:00: mouth in [place] 500) 500 mg 00 the Medical calcium morning. Branch (1,250 mg) tablet ergocalcife 2023-0 Yes [id number] Take 1 [facility] rol, 3-19 capsule by ity of vitamin d2, 00:00: mouth [place] 1,250 mcg 00 weekly. Medical (50,000 Branch unit) capsule calcium 2023-0 Yes [id number] 500mg Take 1 [facility] vers carbonate 3-19 tablet by ity o f (CALCIUM 00:00: mouth in [place] 500) 500 mg 00 the Medical calcium morning. Branch (1,250 mg) tablet ergocalcife 2023-0 Yes [id number] Take 1 [facility] rol, 3-19 capsule by ity of vitamin d2, 00:00: mouth [place] 1,250 mcg 00 weekly. Medical (50,000 Branch unit) capsule calcium 2023-0 Yes [id number] 500mg Take 1 [facility] vers carbonate 3-19 tablet by ity o f (CALCIUM 00:00: mouth in [place] 500) 500 mg 00 the Medical calcium morning. Branch (1,250 mg) tablet ergocalcife 2023-0 Yes [id number] Take 1 [facility] rol, 3-19 capsule by ity of vitamin d2, 00:00: mouth [place] 1,250 mcg 00 weekly. Medical (50,000 Branch unit) capsule calcium 2023-0 Yes [id number] 500mg Take 1 [facility] vers carbonate 3-19 tablet by ity o f (CALCIUM 00:00: mouth in [place] 500) 500 mg 00 the Medical calcium morning. Branch (1,250 mg) tablet ergocalcife 2023-0 Yes [id number] Take 1 [facility] rol, 3-19 capsule by ity of vitamin d2, 00:00: mouth [place] 1,250 mcg 00 weekly. Medical (50,000 Branch unit) capsule calcium 2023-0 Yes [id number] 500mg Take 1 [facility] vers carbonate 3-19 tablet by ity o f (CALCIUM 00:00: mouth in [place] 500) 500 mg 00 the Medical calcium morning. Branch (1,250 mg) tablet ergocalcife 2023-0 Yes [id number] Take 1 [facility] rol, 3-19 capsule by ity of vitamin d2, 00:00: mouth [place] 1,250 mcg 00 weekly. Medical (50,000 Branch unit) capsule calcium 2023-0 Yes [id number] 500mg Take 1 [facility] vers carbonate 3-19 tablet by ity o f (CALCIUM 00:00: mouth in [place] 500) 500 mg 00 the Medical calcium morning. Branch (1,250 mg) tablet ergocalcife 2023-0 Yes [id number] Take 1 [facility] rol, 3-19 capsule by ity of vitamin d2, 00:00: mouth [place] 1,250 mcg 00 weekly. Medical (50,000 Branch unit) capsule calcium 2023-0 Yes [id number] 500mg Take 1 [facility] vers carbonate 3-19 tablet by ity o f (CALCIUM 00:00: mouth in [place] 500) 500 mg 00 the Medical calcium morning. Branch (1,250 mg) tablet ergocalcife 2023-0 Yes [id number] Take 1 [facility] rol, 3-19 capsule by ity of vitamin d2, 00:00: mouth [place] 1,250 mcg 00 weekly. Medical (50,000 Branch unit) capsule calcium 2023-0 Yes [id number] 500mg Take 1 [facility] vers carbonate 3-19 tablet by ity o f (CALCIUM 00:00: mouth in [place] 500) 500 mg 00 the Medical calcium morning. Branch (1,250 mg) tablet ALBUTEROL 2023-0 Yes [id number] INHALE ONE Univers 2.5 mg /3 3-01 VIAL VIA ity of mL (0.083 00:00: NEBULIZER [place] %) 00 EVERY 4 Medical nebulizer HOURS Branch solution NEEDED FOR WHEEZING OR SHORTNESS OF BREATH ALBUTEROL 3-0 Yes [id number] INHALE ONE Univers 2.5 mg /3 3-01 VIAL VIA ity of mL (0.083 00:00: NEBULIZER [place] %) 00 EVERY 4 Medical nebulizer HOURS Branch solution NEEDED FOR WHEEZING OR SHORTNESS OF BREATH ALBUTEROL 2022-0 Yes [id number] INHALE ONE Univers 2.5 mg /3 3-01 VIAL VIA ity of mL (0.083 00:00: NEBULIZER [place] %) 00 EVERY 4 Medical nebulizer HOURS Branch solution NEEDED FOR WHEEZING OR SHORTNESS OF BREATH ALBUTEROL 2022-0 Yes [id number] INHALE ONE Univers 2.5 mg /3 3- VIAL VIA ity of mL (0.083 00:00: NEBULIZER [place] %) 00 EVERY 4 Medical nebulizer HOURS Branch solution NEEDED FOR WHEEZING OR SHORTNESS OF BREATH ALBUTEROL 2022-0 Yes [id number] INHALE ONE Univers 2.5 mg /3 3- VIAL VIA ity of mL (0.083 00:00: NEBULIZER [place] %) 00 EVERY 4 Medical nebulizer HOURS Branch solution NEEDED FOR WHEEZING OR SHORTNESS OF BREATH ALBUTEROL 2022-0 Yes [id number] INHALE ONE Univers 2.5 mg /3 3- VIAL VIA ity of mL (0.083 00:00: NEBULIZER [place] %) 00 EVERY 4 Medical nebulizer HOURS Branch solution NEEDED FOR WHEEZING OR SHORTNESS OF BREATH ALBUTEROL 2022-0 Yes [id number] INHALE ONE Univers 2.5 mg /3 3- VIAL VIA ity of mL (0.083 00:00: NEBULIZER [place] %) 00 EVERY 4 Medical nebulizer HOURS Branch solution NEEDED FOR WHEEZING OR SHORTNESS OF BREATH ALBUTEROL 2022-0 Yes [id number] INHALE ONE Univers 2.5 mg /3 3-01 VIAL VIA ity of mL (0.083 00:00: NEBULIZER [place] %) 00 EVERY 4 Medical nebulizer HOURS Branch solution NEEDED FOR WHEEZING OR SHORTNESS OF BREATH ALBUTEROL 2022-0 Yes [id number] INHALE ONE Univers 2.5 mg /3 3-01 VIAL VIA ity of mL (0.083 00:00: NEBULIZER [place] %) 00 EVERY 4 Medical nebulizer HOURS Branch solution NEEDED FOR WHEEZING OR SHORTNESS OF BREATH ALBUTEROL 2022-0 Yes [id number] INHALE ONE Univers 2.5 mg /3 3-01 VIAL VIA ity of mL (0.083 00:00: NEBULIZER [place] %) 00 EVERY 4 Medical nebulizer HOURS Branch solution NEEDED FOR WHEEZING OR SHORTNESS OF BREATH ALBUTEROL 2022-0 Yes [id number] INHALE ONE Univers 2.5 mg /3 3-01 VIAL VIA ity of mL (0.083 00:00: NEBULIZER [place] %) 00 EVERY 4 Medical nebulizer HOURS Branch solution NEEDED FOR WHEEZING OR SHORTNESS OF BREATH ALBUTEROL 2022-0 Yes [id number] INHALE ONE Univers 2.5 mg /3 3-01 VIAL VIA ity of mL (0.083 00:00: NEBULIZER [place] %) 00 EVERY 4 Medical nebulizer HOURS Branch solution NEEDED FOR WHEEZING OR SHORTNESS OF BREATH ALBUTEROL 2022-0 Yes [id number] INHALE ONE Univers 2.5 mg /3 3-01 VIAL VIA ity of mL (0.083 00:00: NEBULIZER [place] %) 00 EVERY 4 Medical nebulizer HOURS Branch solution NEEDED FOR WHEEZING OR SHORTNESS OF BREATH ALBUTEROL 2022-0 Yes [id number] INHALE ONE [facility] 2.5 mg /3 3-01 VIAL VIA ity of mL (0.083 00:00: NEBULIZER [place] as %) 00 EVERY 4 Medical nebulizer HOURS Branch solution NEEDED FOR WHEEZING OR SHORTNESS OF BREATH ALBUTEROL 2022-0 Yes [id number] INHALE ONE Univers 2.5 mg /3 3-01 VIAL VIA ity of mL (0.083 00:00: NEBULIZER [place] as %) 00 EVERY 4 Medical nebulizer HOURS Branch solution NEEDED FOR WHEEZING OR SHORTNESS OF BREATH ALBUTEROL 2022-0 Yes [id number] INHALE ONE Univers 2.5 mg /3 3-01 VIAL VIA ity of mL (0.083 00:00: NEBULIZER [place] %) 00 EVERY 4 Medical nebulizer HOURS Branch solution NEEDED FOR WHEEZING OR SHORTNESS OF BREATH ALBUTEROL 2022-0 Yes [id number] INHALE ONE Univers 2.5 mg /3 3-01 VIAL VIA ity of mL (0.083 00:00: NEBULIZER [place] as %) 00 EVERY 4 Medical nebulizer HOURS Branch solution NEEDED FOR WHEEZING OR SHORTNESS OF BREATH ALBUTEROL 2022-0 Yes [id number] INHALE ONE Univers 2.5 mg /3 3-01 VIAL VIA ity of mL (0.083 00:00: NEBULIZER [place] as %) 00 EVERY 4 Medical nebulizer HOURS Branch solution NEEDED FOR WHEEZING OR SHORTNESS OF BREATH ALBUTEROL 2022-0 Yes [id number] INHALE ONE Univers 2.5 mg /3 3-01 VIAL VIA ity of mL (0.083 00:00: NEBULIZER [place] as %) 00 EVERY 4 Medical nebulizer HOURS Branch solution NEEDED FOR WHEEZING OR SHORTNESS OF BREATH ALBUTEROL 2022-0 Yes [id number] INHALE ONE Univers 2.5 mg /3 3-01 VIAL VIA ity of mL (0.083 00:00: NEBULIZER [place] as %) 00 EVERY 4 Medical nebulizer HOURS Branch solution NEEDED FOR WHEEZING OR SHORTNESS OF BREATH ALBUTEROL 2022-0 Yes [id number] INHALE ONE [facility] 2.5 mg /3 3-01 VIAL VIA ity of mL (0.083 00:00: NEBULIZER [place] as %) 00 EVERY 4 Medical nebulizer HOURS Branch solution NEEDED FOR WHEEZING OR SHORTNESS OF BREATH ALBUTEROL 2022-0 Yes [id number] INHALE ONE [facility] 2.5 mg /3 3-01 VIAL VIA ity of mL (0.083 00:00: NEBULIZER [place] as %) 00 EVERY 4 Medical nebulizer HOURS Branch solution NEEDED FOR WHEEZING OR SHORTNESS OF BREATH ALBUTEROL 2022-0 Yes [id number] INHALE ONE Univers 2.5 mg /3 3-01 VIAL VIA ity of mL (0.083 00:00: NEBULIZER [place] as %) 00 EVERY 4 Medical nebulizer HOURS Branch solution NEEDED FOR WHEEZING OR SHORTNESS OF BREATH ALBUTEROL 2022-0 Yes [id number] INHALE ONE [facility] 2.5 mg /3 3-01 VIAL VIA ity of mL (0.083 00:00: NEBULIZER [place] as %) 00 EVERY 4 Medical nebulizer HOURS Branch solution NEEDED FOR WHEEZING OR SHORTNESS OF BREATH ALBUTEROL 2022-0 Yes [id number] INHALE ONE [facility] 2.5 mg /3 3-01 VIAL VIA ity of mL (0.083 00:00: NEBULIZER [place] as %) 00 EVERY 4 Medical nebulizer HOURS Branch solution NEEDED FOR WHEEZING OR SHORTNESS OF BREATH ALBUTEROL 2022-0 Yes [id number] INHALE ONE Univers 2.5 mg /3 3-01 VIAL VIA ity of mL (0.083 00:00: NEBULIZER [place] as %) 00 EVERY 4 Medical nebulizer HOURS Branch solution NEEDED FOR WHEEZING OR SHORTNESS OF BREATH ALBUTEROL 2022-0 Yes [id number] INHALE ONE [facility] 2.5 mg /3 3-01 VIAL VIA [facility] of mL (0.083 00:00: NEBULIZER [place] %) 00 EVERY 4 Medical nebulizer HOURS Branch solution NEEDED FOR WHEEZING OR SHORTNESS OF BREATH ALBUTEROL 2022-0 Yes [id number] INHALE ONE [facility] 2.5 mg /3 3- VIAL VIA ity of mL (0.083 00:00: NEBULIZER [place] 00 EVERY 4 Medical nebulizer HOURS Branch solution NEEDED FOR WHEEZING OR SHORTNESS OF BREATH ALBUTEROL 2022-0 Yes [id number] INHALE ONE [facility] 2.5 mg /3 3-01 VIAL VIA it[facility] of mL (0.083 00:00: NEBULIZER [place] 00 EVERY 4 Medical nebulizer HOURS Branch solution NEEDED FOR WHEEZING OR SHORTNESS OF BREATH ALBUTEROL 2022-0 Yes [id number] INHALE ONE [facility] 2.5 mg /3 3-01 VIAL VIA it[facility] of mL (0.083 00:00: NEBULIZER [place] 00 EVERY 4 Medical nebulizer HOURS Branch solution NEEDED FOR WHEEZING OR SHORTNESS OF BREATH ALBUTEROL 2022-0 3- No [id number] INHALE ONE [facility] 2.5 mg /3 3-11 09- VIAL VIA ity o f mL (0.083 00:00: 00:00 NE[place]ULIZ[place] %) 00 :00 EVERY 4 Medical nebulizer HOURS Branch solution NEEDED FOR WHEEZING OR SHORTNESS OF BREATH GLIMEPIRIDE 2022-0 Yes [id number] TAKE 1 [facility] 2 mg tablet 1-24 TABLET BY ity of 00:00: MOUTH IN [place] [address] THE Medical MORNING Branch AND IN THE EVENING METFORMIN 2022-0 Yes [id number] TAKE 1 [facility] 500 mg 1-24 TABLET BY ity of tablet 00:00: MOUTH IN [place] [address] THE Medical MORNING Branch AND IN THE EVENING WITH MEALS GLIMEPIRIDE 2023-0 Yes [id number] TAKE 1 [facility] 2 mg tablet 1-24 TABLET BY ity of 00:00: MOUTH IN [place] 00 THE Medical MORNING Branch AND IN THE EVENING METFORMIN 2022-0 Yes [id number] TAKE 1 [facility] n[facility] 500 mg 1-24 TABLET BY ity of tablet 00:00: MOUTH IN [place] [address] THE Medical MORNING Branch AND IN THE EVENING WITH MEALS GLIMEPIRIDE 2022-0 Yes [id number] TAKE 1 [facility] 2 mg tablet 1-24 TABLET BY ity of 00:00: MOUTH IN [place] [address] THE Medical MORNING Branch AND IN THE EVENING METFORMIN 2022-0 Yes [id number] TAKE 1 [facility] 500 mg 1-24 TABLET BY ity of tablet 00:00: MOUTH IN [place] [address] THE Medical MORNING Branch AND IN THE EVENING WITH MEALS GLIMEPIRIDE 2022-0 Yes [id number] TAKE 1 [facility] 2 mg tablet 1-24 TABLET BY ity of 00:00: MOUTH IN [place] [address] THE Medical MORNING Branch AND IN THE EVENING METFORMIN 2022-0 Yes [id number] TAKE 1 [facility] nivers 500 mg 1-24 TABLET BY ity of tablet 00:00: MOUTH IN [place] [address] THE Medical MORNING Branch AND IN THE EVENING WITH MEALS GLIMEPIRIDE 2022-0 Yes [id number] TAKE 1 [facility] 2 mg tablet 1-24 TABLET BY ity of 00:00: MOUTH IN [place] [address] THE Medical MORNING Branch AND IN THE EVENING METFORMIN 2022-0 Yes [id number] TAKE 1 [facility] nivers 500 mg 1-24 TABLET BY ity of tablet 00:00: MOUTH IN [place] [address] THE Medical MORNING Branch AND IN THE EVENING WITH MEALS GLIMEPIRIDE 2022-0 Yes [id number] TAKE 1 [facility] 2 mg tablet 1-24 TABLET BY ity of 00:00: MOUTH IN [place] [address] THE Medical MORNING Branch AND IN THE EVENING METFORMIN 2022-0 Yes [id number] TAKE 1 [facility] nivers 500 mg 1-24 TABLET BY ity of tablet 00:00: MOUTH IN [place] [address] THE Medical MORNING Branch AND IN THE EVENING WITH MEALS GLIMEPIRIDE 2022-0 Yes [id number] TAKE 1 [facility] 2 mg tablet 1-24 TABLET BY ity of 00:00: MOUTH IN [place] [address] THE Medical MORNING Branch AND IN THE EVENING METFORMIN 2022-0 Yes [id number] TAKE 1 [facility] nivers 500 mg 1-24 TABLET BY ity of tablet 00:00: MOUTH IN [place] 00 THE Medical MORNING Branch AND IN THE EVENING WITH MEALS GLIMEPIRIDE 2022-0 Yes [id number] TAKE 1 [facility] 2 mg tablet 1-24 TABLET BY ity of 00:00: MOUTH IN [place] 00 THE Medical MORNING Branch AND IN THE EVENING METFORMIN 3-0 Yes [id number] TAKE 1 [facility] 500 mg 1-24 TABLET BY ity of tablet 00:00: MOUTH IN [place] 00 THE Medical MORNING Branch AND IN THE EVENING WITH MEALS GLIMEPIRIDE 2022-0 Yes [id number] TAKE 1 [facility] 2 mg tablet 1-24 TABLET BY ity of 00:00: MOUTH IN [place] 00 THE Medical MORNING Branch AND IN THE EVENING METFORMIN 3-0 Yes [id number] TAKE 1 [facility] 500 mg 1-24 TABLET BY ity of tablet 00:00: MOUTH IN [place] [address] THE Medical MORNING Branch AND IN THE EVENING WITH MEALS GLIMEPIRIDE 2022-0 Yes [id number] TAKE 1 [facility] 2 mg tablet 1-24 TABLET BY ity of 00:00: MOUTH IN [place] [address] THE Medical MORNING Branch AND IN THE EVENING METFORMIN 3-0 Yes [id number] TAKE 1 [facility] nivers 500 mg 1-24 TABLET BY ity of tablet 00:00: MOUTH IN [place] 00 THE Medical MORNING Branch AND IN THE EVENING WITH MEALS GLIMEPIRIDE 2022-0 Yes [id number] TAKE 1 [facility] 2 mg tablet 1-24 TABLET BY ity of 00:00: MOUTH IN [place] [address] THE Medical MORNING Branch AND IN THE EVENING METFORMIN 3-0 Yes [id number] TAKE 1 [facility] nivers 500 mg 1-24 TABLET BY ity of tablet 00:00: MOUTH IN [place] [address] THE Medical MORNING Branch AND IN THE EVENING WITH MEALS GLIMEPIRIDE 2022-0 Yes [id number] TAKE 1 [facility] 2 mg tablet 1-24 TABLET BY ity of 00:00: MOUTH IN [place] [address] THE Medical MORNING Branch AND IN THE EVENING METFORMIN 3-0 Yes [id number] TAKE 1 [facility] nivers 500 mg 1-24 TABLET BY ity of tablet 00:00: MOUTH IN [place] [address] THE Medical MORNING Branch AND IN THE EVENING WITH MEALS GLIMEPIRIDE 2022-0 Yes [id number] TAKE 1 [facility] 2 mg tablet 1-24 TABLET BY ity of 00:00: MOUTH IN [place] [address] THE Medical MORNING Branch AND IN THE EVENING METFORMIN 2023-0 Yes [id number] TAKE 1 [facility] nivers 500 mg 1-24 TABLET BY ity of tablet 00:00: MOUTH IN [place] 00 THE Medical MORNING Branch AND IN THE EVENING WITH MEALS GLIMEPIRIDE 0 Yes [id number] TAKE 1 [facility] 2 mg tablet 1-24 TABLET BY ity of 00:00: MOUTH IN [place] 00 THE Medical MORNING Branch AND IN THE EVENING METFORMIN 0 Yes [id number] TAKE 1 [facility] nivers 500 mg 1-24 TABLET BY ity of tablet 00:00: MOUTH IN [place] 00 THE Medical MORNING Branch AND IN THE EVENING WITH MEALS GLIMEPIRIDE 0 Yes [id number] TAKE 1 [facility] 2 mg tablet 1-24 TABLET BY ity of 00:00: MOUTH IN [place] 00 THE Medical MORNING Branch AND IN THE EVENING METFORMIN 0 Yes [id number] TAKE 1 [facility] n[facility] 500 mg 1-24 TABLET BY ity of tablet 00:00: MOUTH IN [place] 00 THE Medical MORNING Branch AND IN THE EVENING WITH MEALS GLIMEPIRIDE 0 Yes [id number] TAKE 1 [facility] 2 mg tablet 1-24 TABLET BY ity of 00:00: MOUTH IN [place] 00 THE Medical MORNING Branch AND IN THE EVENING METFORMIN 0 Yes [id number] TAKE 1 [facility] 500 mg 1-24 TABLET BY ity of tablet 00:00: MOUTH IN [place] 00 THE Medical MORNING Branch AND IN THE EVENING WITH MEALS GLIMEPIRIDE 0 Yes [id number] TAKE 1 [facility] 2 mg tablet 1-24 TABLET BY ity of 00:00: MOUTH IN [place] 00 THE Medical MORNING Branch AND IN THE EVENING METFORMIN 0 Yes [id number] TAKE 1 [facility] n[facility] 500 mg 1-24 TABLET BY ity of tablet 00:00: MOUTH IN [place] 00 THE Medical MORNING Branch AND IN THE EVENING WITH MEALS GLIMEPIRIDE 0 Yes [id number] TAKE 1 [facility] 2 mg tablet 1-24 TABLET BY ity of 00:00: MOUTH IN [place] 00 THE Medical MORNING Branch AND IN THE EVENING METFORMIN 0 Yes [id number] TAKE 1 [facility] n[facility] 500 mg 1-24 TABLET BY ity of tablet 00:00: MOUTH IN [place] 00 THE Medical MORNING Branch AND IN THE EVENING WITH MEALS GLIMEPIRIDE 2022-0 2022- No [id number] TAKE 1 [facility] 2 mg tablet 1-24 05-09 TABLET BY it y of 00:00: 00:00 MOUTH IN [place] 00 :00 THE Medical MORNING Branch AND IN THE EVENING METFORMIN 2023-0 202- No [id number] TAKE 1 [facility] 500 mg 1-24 05-09 TABLET BY ity of tablet 00:00: 00:00 MOUTH IN [place] 00 :00 THE Medical MORNING Branch AND IN THE EVENING WITH MEALS GLIMEPIRIDE 2023-0 202- No [id number] TAKE 1 [facility] 2 mg tablet 1-24 05-09 TABLET BY it y of 00:00: 00:00 MOUTH IN [place] 00 :00 THE Medical MORNING Branch AND IN THE EVENING METFORMIN 3-0 202- No [id number] TAKE 1 [facility] 500 mg 1-24 05-09 TABLET BY ity of tablet 00:00: 00:00 MOUTH IN [place] 00 :00 THE Medical MORNING Branch AND IN THE EVENING WITH MEALS GLIMEPIRIDE 202-0 202- No [id number] TAKE 1 [facility] 2 mg tablet -24 05-09 TABLET BY it y of 00:00: 00:00 MOUTH IN [place] 00 :00 THE Medical MORNING Branch AND IN THE EVENING METFORMIN 2022-0 2022- No [id number] TAKE 1 [facility] 500 mg 1-24 05-09 TABLET BY ity of tablet 00:00: 00:00 MOUTH IN [place] 00 :00 THE Medical MORNING Branch AND IN THE EVENING WITH MEALS GLIMEPIRIDE 2023-0 202- No [id number] TAKE 1 [facility] 2 mg tablet 1-24 05-09 TABLET BY it y of 00:00: 00:00 MOUTH IN [place] 00 :00 THE Medical MORNING Branch AND IN THE EVENING METFORMIN 3-0 2022- No [id number] TAKE 1 [facility] 500 mg 1-24 05-09 TABLET BY ity of tablet 00:00: 00:00 MOUTH IN [place] 00 :00 THE Medical MORNING Branch AND IN THE EVENING WITH MEALS GLIMEPIRIDE 2023-0 202- No [id number] TAKE 1 [facility] 2 mg tablet 1-24 05-09 TABLET BY it y of 00:00: 00:00 MOUTH IN [place] 00 :00 THE Medical MORNING Branch AND IN THE EVENING METFORMIN 2023-0 2023- No [id number] TAKE 1 [facility] 500 mg 1-24 05-09 TABLET BY ity of tablet 00:00: 00:00 MOUTH IN [place] 00 :00 THE Medical MORNING Branch AND IN THE EVENING WITH MEALS buPROPion 3-0 Yes [id number] 150mg Take 1 U nivers SR 150 mg 1-05 tablet by it[facility] o f SR tablet 00:00: mouth [place] 00 the Medical morning Branch and 1 tablet in the evening. diclofenac- 2022-0 Yes [id number] 1{tbl} Take 1 [facility] misoprostoL 1-05 tablet by ity of 50-200 00:00: mouth in [place] mg-mcg per 00 the Medical tablet morning Branch and 1 tablet in the evening. buPROPion 2022-0 Yes [id number] 150mg Take 1 [facility] nivers SR 150 mg 1-05 tablet by it[facility] o f SR tablet 00:00: mouth [place] 00 the Medical morning Branch and 1 tablet in the evening. diclofenac- 2022-0 Yes [id number] 1{tbl} Take 1 [facility] misoprostoL 1-05 tablet by ity of 50-200 00:00: mouth in [place] mg-mcg per 00 the Medical tablet morning Branch and 1 tablet in the evening. buPROPion 2022-0 Yes [id number] 150mg Take 1 [facility] nivers SR 150 mg 1-05 tablet by it[facility] o f SR tablet 00:00: mouth [place] 00 the Medical morning Branch and 1 tablet in the evening. diclofenac- 2022-0 Yes [id number] 1{tbl} Take 1 [facility] misoprostoL 1-05 tablet by ity of 50-200 00:00: mouth in [place] mg-mcg per 00 the Medical tablet morning Branch and 1 tablet in the evening. buPROPion 3-0 Yes [id number] 150mg Take 1 [facility] nivers SR 150 mg 1-05 tablet by [facility] o f SR tablet 00:00: mouth [place] 00 the Medical morning Branch and 1 tablet in the evening. diclofenac- 2022-0 Yes [id number] 1{tbl} Take 1 [facility] misoprostoL 1-05 tablet by ity of 50-200 00:00: mouth in [place] mg-mcg per 00 the Medical tablet morning Branch and 1 tablet in the evening. buPROPion 3-0 Yes [id number] 150mg Take 1 [facility] nivers SR 150 mg 1-05 tablet by [facility] o f SR tablet 00:00: mouth [place] 00 the Medical morning Branch and 1 tablet in the evening. diclofenac- 2022-0 Yes [id number] 1{tbl} Take 1 [facility] misoprostoL 1-05 tablet by ity of 50-200 00:00: mouth in [place] mg-mcg per 00 the Medical tablet morning Branch and 1 tablet in the evening. buPROPion 2022-0 Yes [id number] 150mg Take 1 [facility] nivers SR 150 mg 1-05 tablet by it[facility] o f SR tablet 00:00: mouth [place] 00 the Medical morning Branch and 1 tablet in the evening. diclofenac- 2022-0 Yes [id number] 1{tbl} Take 1 [facility] misoprostoL 1-05 tablet by ity of 50-200 00:00: mouth in [place] mg-mcg per 00 the Medical tablet morning Branch and 1 tablet in the evening. buPROPion 2022-0 Yes [id number] 150mg Take 1 [facility] nivers SR 150 mg 1-05 tablet by it[facility] o f SR tablet 00:00: mouth [place] 00 the Medical morning Branch and 1 tablet in the evening. diclofenac- 2022-0 Yes [id number] 1{tbl} Take 1 [facility] misoprostoL 1-05 tablet by ity of 50-200 00:00: mouth in [place] mg-mcg per 00 the Medical tablet morning Branch and 1 tablet in the evening. buPROPion 2022-0 Yes [id number] 150mg Take 1 [facility] nivers SR 150 mg 1-05 tablet by it[facility] o f SR tablet 00:00: mouth [place] 00 the Medical morning Branch and 1 tablet in the evening. diclofenac- 2022-0 Yes [id number] 1{tbl} Take 1 [facility] misoprostoL 1-05 tablet by ity of 50-200 00:00: mouth in [place] mg-mcg per 00 the Medical tablet morning Branch and 1 tablet in the evening. buPROPion 2022-0 Yes [id number] 150mg Take 1 U nivers SR 150 mg 1-05 tablet by [facility] o f SR tablet 00:00: mouth [place] 00 the Medical morning Branch and 1 tablet in the evening. diclofenac- 2022-0 Yes [id number] 1{tbl} Take 1 [facility] misoprostoL 1-05 tablet by ity of 50-200 00:00: mouth in [place] mg-mcg per 00 the Medical tablet morning Branch and 1 tablet in the evening. buPROPion 2022-0 Yes [id number] 150mg Take 1 [facility] nivers SR 150 mg 1-05 tablet by [facility] o f SR tablet 00:00: mouth [place] 00 the Medical morning Branch and 1 tablet in the evening. diclofenac- 2022-0 Yes [id number] 1{tbl} Take 1 [facility] misoprostoL 1-05 tablet by ity of 50-200 00:00: mouth in [place] mg-mcg per 00 the Medical tablet morning Branch and 1 tablet in the evening. buPROPion 2022-0 Yes [id number] 150mg Take 1 [facility] nivers SR 150 mg 1-05 tablet by it[facility] o f SR tablet 00:00: mouth [place] 00 the Medical morning Branch and 1 tablet in the evening. diclofenac- 2022-0 Yes [id number] 1{tbl} Take 1 [facility] misoprostoL 1-05 tablet by ity of 50-200 00:00: mouth in [place] mg-mcg per 00 the Medical tablet morning Branch and 1 tablet in the evening. buPROPion 2022-0 Yes [id number] 150mg Take 1 [facility] nivers SR 150 mg 1-05 tablet by it[facility] o f SR tablet 00:00: mouth [place] 00 the Medical morning Branch and 1 tablet in the evening. diclofenac- 2022-0 Yes [id number] 1{tbl} Take 1 [facility] misoprostoL 1-05 tablet by ity of 50-200 00:00: mouth in [place] mg-mcg per 00 the Medical tablet morning Branch and 1 tablet in the evening. buPROPion 2022-0 Yes [id number] 150mg Take 1 [facility] nivers SR 150 mg 1-05 tablet by [facility] o f SR tablet 00:00: mouth [place] 00 the Medical morning Branch and 1 tablet in the evening. diclofenac- 2022-0 Yes [id number] 1{tbl} Take 1 [facility] misoprostoL 1-05 tablet by ity of 50-200 00:00: mouth in [place] mg-mcg per 00 the Medical tablet morning Branch and 1 tablet in the evening. buPROPion 3-0 Yes [id number] 150mg Take 1 [facility] nivers SR 150 mg 1-05 tablet by [facility] o f SR tablet 00:00: mouth [place] 00 the Medical morning Branch and 1 tablet in the evening. diclofenac- 2022-0 Yes [id number] 1{tbl} Take 1 [facility] misoprostoL 1-05 tablet by ity of 50-200 00:00: mouth in [place] mg-mcg per 00 the Medical tablet morning Branch and 1 tablet in the evening. buPROPion 2022-0 Yes [id number] 150mg Take 1 [facility] nivers SR 150 mg 1-05 tablet by [facility] o f SR tablet 00:00: mouth [place] 00 the Medical morning Branch and 1 tablet in the evening. diclofenac- 2022-0 Yes [id number] 1{tbl} Take 1 [facility] misoprostoL 1-05 tablet by ity of 50-200 00:00: mouth in [place] mg-mcg per 00 the Medical tablet morning Branch and 1 tablet in the evening. buPROPion 2022-0 Yes [id number] 150mg Take 1 [facility] nivers SR 150 mg 1-05 tablet by [facility] o f SR tablet 00:00: mouth [place] 00 the Medical morning Branch and 1 tablet in the evening. diclofenac- 2022-0 Yes [id number] 1{tbl} Take 1 [facility] misoprostoL 1-05 tablet by ity of 50-200 00:00: mouth in [place] mg-mcg per 00 the Medical tablet morning Branch and 1 tablet in the evening. buPROPion 2022-0 Yes [id number] 150mg Take 1 [facility] nivers SR 150 mg 1-05 tablet by it[facility] o f SR tablet 00:00: mouth [place] 00 the Medical morning Branch and 1 tablet in the evening. diclofenac- 2022-0 Yes [id number] 1{tbl} Take 1 [facility] misoprostoL 1-05 tablet by ity of 50-200 00:00: mouth in [place] mg-mcg per 00 the Medical tablet morning Branch and 1 tablet in the evening. buPROPion 2022-0 Yes [id number] 150mg Take 1 [facility] nivers SR 150 mg 1-05 tablet by [facility] o f SR tablet 00:00: mouth [place] 00 the Medical morning Branch and 1 tablet in the evening. diclofenac- 2022-0 Yes [id number] 1{tbl} Take 1 [facility] misoprostoL 1-05 tablet by ity of 50-200 00:00: mouth in [place] mg-mcg per 00 the Medical tablet morning Branch and 1 tablet in the evening. buPROPion 2022-0 Yes [id number] 150mg Take 1 [facility] nivers SR 150 mg 1-05 tablet by [facility] o f SR tablet 00:00: mouth [place] 00 the Medical morning Branch and 1 tablet in the evening. diclofenac- 2022-0 Yes [id number] 1{tbl} Take 1 [facility] misoprostoL 1-05 tablet by ity of 50-200 00:00: mouth in [place] mg-mcg per 00 the Medical tablet morning Branch and 1 tablet in the evening. buPROPion 2022-0 Yes [id number] 150mg Take 1 [facility] nivers SR 150 mg 1-05 tablet by it[facility] o f SR tablet 00:00: mouth [place] 00 the Medical morning Branch and 1 tablet in the evening. diclofenac- 2022-0 Yes [id number] 1{tbl} Take 1 [facility] misoprostoL 1-05 tablet by ity of 50-200 00:00: mouth in [place] mg-mcg per 00 the Medical tablet morning Branch and 1 tablet in the evening. buPROPion 2022-0 Yes [id number] 150mg Take 1 [facility] nivers SR 150 mg 1-05 tablet by [facility] o f SR tablet 00:00: mouth [place] 00 the Medical morning Branch and 1 tablet in the evening. diclofenac- 2022-0 Yes [id number] 1{tbl} Take 1 [facility] misoprostoL 1-05 tablet by ity of 50-200 00:00: mouth in [place] mg-mcg per 00 the Medical tablet morning Branch and 1 tablet in the evening. buPROPion 2022-0 Yes [id number] 150mg Take 1 [facility] nivers SR 150 mg 1-05 tablet by [facility] o f SR tablet 00:00: mouth [place] 00 the Medical morning Branch and 1 tablet in the evening. diclofenac- 2022-0 Yes [id number] 1{tbl} Take 1 [facility] misoprostoL 1-05 tablet by ity of 50-200 00:00: mouth in [place] mg-mcg per 00 the Medical tablet morning Branch and 1 tablet in the evening. buPROPion 3-0 Yes [id number] 150mg Take 1 [facility] nivers SR 150 mg 1-05 tablet by [facility] o f SR tablet 00:00: mouth [place] 00 the Medical morning Branch and 1 tablet in the evening. diclofenac- 0 Yes [id number] 1{tbl} Take 1 [facility] misoprostoL 1-05 tablet by ity of 50-200 00:00: mouth in [place] mg-mcg per 00 the Medical tablet morning Branch and 1 tablet in the evening. buPROPion 0 Yes [id number] 150mg Take 1 [facility] nivers SR 150 mg 1-05 tablet by it[facility] o f SR tablet 00:00: mouth [place] 00 the Medical morning Branch and 1 tablet in the evening. diclofenac- 0 Yes [id number] 1{tbl} Take 1 [facility] misoprostoL 1-05 tablet by ity of 50-200 00:00: mouth in [place] mg-mcg per 00 the Medical tablet morning Branch and 1 tablet in the evening. buPROPion 2022- No [id number] 150mg Take 1 [facility] SR 150 mg 1-05 05-09 tablet by ity of SR tablet 00:00: 00:00 mouth in [place] :00 the Medical morning Branch and 1 tablet in the evening. diclofenac- 2022- No [id number] 1{tbl} Take 1 [facility] misoprostoL 1-05 05-09 tablet by it y of 50-200 00:00: 00:00 mouth in [place] mg-mcg per 00 :00 the Medical tablet morning Branch and 1 tablet in the evening. buPROPion 2022- No [id number] 150mg Take 1 [facility] SR 150 mg 1-05 05-09 tablet by ity of SR tablet 00:00: 00:00 mouth in [place] 00 :00 the Medical morning Branch and 1 tablet in the evening. diclofenac- 2022- No [id number] 1{tbl} Take 1 [facility] misoprostoL 1-05 05-09 tablet by it y of 50-200 00:00: 00:00 mouth in [place] mg-mcg per 00 :00 the Medical tablet morning Branch and 1 tablet in the evening. buPROPion 0 2022- No [id number] 150mg Take 1 [facility] SR 150 mg 1-05 05-09 tablet by ity of SR tablet 00:00: 00:00 mouth in [place] 00 :00 the Medical morning Branch and 1 tablet in the evening. diclofenac- 2022- No [id number] 1{tbl} Take 1 [facility] misoprostoL 1-05 05-09 tablet by it y of 50-200 00:00: 00:00 mouth in [place] mg-mcg per 00 :00 the Medical tablet morning Branch and 1 tablet in the evening. buPROPion 2022- No [id number] 150mg Take 1 [facility] SR 150 mg 1-05 05-09 tablet by ity of SR tablet 00:00: 00:00 mouth in [place] 00 :00 the Medical morning Branch and 1 tablet in the evening. diclofenac- 2022- No [id number] 1{tbl} Take 1 [facility] misoprostoL 1-05 05-09 tablet by it y of 50-200 00:00: 00:00 mouth in [place] mg-mcg per 00 :00 the Medical tablet morning Branch and 1 tablet in the evening. buPROPion 2022- No [id number] 150mg Take 1 [facility] SR 150 mg 1-05 05-09 tablet by ity of SR tablet 00:00: 00:00 mouth in [place] 00 :00 the Medical morning Branch and 1 tablet in the evening. diclofenac- 2022- No [id number] 1{tbl} Take 1 [facility] misoprostoL 1-05 05-09 tablet by it y of 50-200 00:00: 00:00 mouth in [place] mg-mcg per 00 :00 the Medical tablet morning Branch and 1 tablet in the evening. fluticasone 2021-11 Yes [id number] SHAKE [facility] propionate 2-29 LIQUID AND ity of 50 00:00: USE 2 [place] mcg/actuati 00 SPRAYS IN Med ical on nasal EACH Branch spray NOSTRIL EVERY DAY fluticasone 2021-11 Yes [id number] SHAKE [facility] propionate 2-29 LIQUID AND ity of 50 00:00: USE 2 [place] mcg/actuati 00 SPRAYS IN Med ical on nasal EACH Branch spray NOSTRIL EVERY DAY fluticasone 2021-11 Yes [id number] SHAKE [facility] propionate 2-29 LIQUID AND ity of 50 00:00: USE 2 [place] mcg/actuati 00 SPRAYS IN Med ical on nasal EACH Branch spray NOSTRIL EVERY DAY fluticasone 2021-11 Yes [id number] SHAKE [facility] propionate 2-29 LIQUID AND ity of 50 00:00: USE 2 [place] mcg/actuati 00 SPRAYS IN Med ical on nasal EACH Branch spray NOSTRIL EVERY DAY fluticasone 2021-11 Yes [id number] SHAKE [facility] propionate 2-29 LIQUID AND ity of 50 00:00: USE 2 [place] mcg/actuati 00 SPRAYS IN Med ical on nasal EACH Branch spray NOSTRIL EVERY DAY fluticasone 2021-11 Yes [id number] SHAKE [facility] propionate 2-29 LIQUID AND ity of 50 00:00: USE 2 [place] mcg/actuati 00 SPRAYS IN Med ical on nasal EACH Branch spray NOSTRIL EVERY DAY fluticasone 2021-11 Yes [id number] SHAKE [facility] propionate 2-29 LIQUID AND ity of 50 00:00: USE 2 [place] mcg/actuati 00 SPRAYS IN Med ical on nasal EACH Branch spray NOSTRIL EVERY DAY fluticasone 2021-11 Yes [id number] SHAKE [facility] propionate 2-29 LIQUID AND ity of 50 00:00: USE 2 [place] mcg/actuati 00 SPRAYS IN Med ical on nasal EACH Branch spray NOSTRIL EVERY DAY fluticasone 2021-11 Yes [id number] SHAKE [facility] propionate 2-29 LIQUID AND ity of 50 00:00: USE 2 [place] mcg/actuati 00 SPRAYS IN Med ical on nasal EACH Branch spray NOSTRIL EVERY DAY fluticasone 2021-11 Yes [id number] SHAKE [facility] propionate 2-29 LIQUID AND ity of 50 00:00: USE 2 [place] mcg/actuati 00 SPRAYS IN Med ical on nasal EACH Branch spray NOSTRIL EVERY DAY fluticasone 2021-11 Yes [id number] SHAKE [facility] propionate 2-29 LIQUID AND ity of 50 00:00: USE 2 [place] mcg/actuati 00 SPRAYS IN Med ical on nasal EACH Branch spray NOSTRIL EVERY DAY fluticasone 2021-11 Yes [id number] SHAKE [facility] propionate 2-29 LIQUID AND ity of 50 00:00: USE 2 [place] mcg/actuati 00 SPRAYS IN Med ical on nasal EACH Branch spray NOSTRIL EVERY DAY fluticasone 2021-11 Yes [id number] SHAKE [facility] propionate 2-29 LIQUID AND ity of 50 00:00: USE 2 [place] mcg/actuati 00 SPRAYS IN Med ical on nasal EACH Branch spray NOSTRIL EVERY DAY fluticasone 2021-11 Yes [id number] SHAKE [facility] propionate 2-29 LIQUID AND ity of 50 00:00: USE 2 [place] mcg/actuati 00 SPRAYS IN Med ical on nasal EACH Branch spray NOSTRIL EVERY DAY fluticasone 2021-11 Yes [id number] SHAKE [facility] propionate 2-29 LIQUID AND ity of 50 00:00: USE 2 [place] mcg/actuati 00 SPRAYS IN Med ical on nasal EACH Branch spray NOSTRIL EVERY DAY fluticasone 2021-11 Yes [id number] SHAKE [facility] propionate 2-29 LIQUID AND ity of 50 00:00: USE 2 [place] mcg/actuati 00 SPRAYS IN Med ical on nasal EACH Branch spray NOSTRIL EVERY DAY fluticasone 2021-11 Yes [id number] SHAKE [facility] propionate 2-29 LIQUID AND ity of 50 00:00: USE 2 [place] mcg/actuati 00 SPRAYS IN Med ical on nasal EACH Branch spray NOSTRIL EVERY DAY fluticasone 2021-11 Yes [id number] SHAKE [facility] propionate 2-29 LIQUID AND ity of 50 00:00: USE 2 [place] mcg/actuati 00 SPRAYS IN Med ical on nasal EACH Branch spray NOSTRIL EVERY DAY fluticasone 2021-11 Yes [id number] SHAKE [facility] propionate 2-29 LIQUID AND ity of 50 00:00: USE 2 [place] mcg/actuati 00 SPRAYS IN Med ical on nasal EACH Branch spray NOSTRIL EVERY DAY fluticasone 2021-11 Yes [id number] SHAKE [facility] propionate 2-29 LIQUID AND ity of 50 00:00: USE 2 [place] mcg/actuati 00 SPRAYS IN Med ical on nasal EACH Branch spray NOSTRIL EVERY DAY fluticasone 2021-11 Yes [id number] SHAKE [facility] propionate 2-29 LIQUID AND ity of 50 00:00: USE 2 [place] mcg/actuati 00 SPRAYS IN Med ical on nasal EACH Branch spray NOSTRIL EVERY DAY fluticasone 2021-11 Yes [id number] SHAKE [facility] propionate 2-29 LIQUID AND ity of 50 00:00: USE 2 [place] mcg/actuati 00 SPRAYS IN Med ical on nasal EACH Branch spray NOSTRIL EVERY DAY fluticasone 2021-11 Yes [id number] [place] [facility] propionate 2-29 LIQUID AND ity of 50 00:00: USE 2 [place] mcg/actuati 00 SPRAYS IN Med ical on nasal EACH Branch spray NOSTRIL EVERY DAY fluticasone 2021-11- No [id number] [place] propionate 2-29 03-28 LIQUID AND it y of 50 00:00: 00:00 USE 2 [place] mcg/actuati 00 :00 SPRAYS IN Med ical on nasal EACH Branch spray NOSTRIL EVERY DAY methylpredn 2021-11 Yes 125mg 125 mg, Un pelon isolone sod 12-13 Intravenou it y of succ 00:00: s, Q6H, [place] (SOLU-MEDRO 00 First dose Me dical L) on [place] Branch injection 10/11/22 at 125 mg 1800, Until Discontinu ed, Routine ketorolac 2021-11- No 15mg 15 mg, Unive rs (TORADOL) 12-12 Slow IV ity of injection 21:15: 20:44 [...] package directions methylPREDN 2021-11 Yes Take by [facility] ISolone 2-08 mouth ity of (MEDROL, 00:00: SEE-INSTRU [place] ASH,) 4 mg 00 CTIONS. Medica l tablets follow Branch package directions methylPREDN 2021-11 Yes Take by [facility] ISolone 2-08 mouth ity of (MEDROL, 00:00: SEE-INSTRU [place] ASH,) 4 mg 00 CTIONS. Medica l tablets follow Branch package directions methylPREDN 2021-11 Yes Take by [facility] ISolone 2-08 mouth ity of (MEDROL, 00:00: SEE-INSTRU [place] ASH,) 4 mg 00 CTIONS. Medica l tablets follow Branch package directions methylPREDN 2021-11 Yes Take by [facility] ISolone 2-08 mouth ity of (MEDROL, 00:00: [...] package directions methylPREDN 2021-11 Yes Take by [facility] ISolone 2-08 mouth ity of (MEDROL, 00:00: [...] package directions methylPREDN 2021-11 Yes Take by [facility] ISolone 208 mouth ity of (MEDROL, 00:00: SEE-INSTRU [place] ASH,) 4 mg 00 CTIONS. Medica l tablets follow Branch package directions methylPREDN 2021-11 Yes Take by [facility] ISolone 208 mouth ity of (MEDROL, 00:00: SEE-INSTRU [place] ASH,) 4 mg 00 CTIONS. Medica l tablets follow Branch package directions methylPREDN 2021-11 Yes Take by [facility] ISolone 208 mouth ity of (MEDROL, 00:00: SEE-INSTRU [place] ASH,) 4 mg 00 CTIONS. Medica l tablets follow Branch package directions methylPREDN 2021-11 Yes Take by [facility] ISolone 208 mouth ity of (MEDROL, 00:00: SEE-INSTRU [place] ASH,) 4 mg 00 CTIONS. Medica l tablets follow Branch package directions methylPREDN 2021-11 Yes Take by [facility] ISolone 208 mouth ity of (MEDROL, 00:00: SEE-INSTRU [place] ASH,) 4 mg 00 CTIONS. Medica l tablets follow Branch package directions methylPREDN 2021-11 Yes Take by [facility] ISolone 208 mouth ity of (MEDROL, 00:00: SEE-INSTRU [place] ASH,) 4 mg 00 CTIONS. Medica l tablets follow Branch package directions methylPREDN 2021-11 Yes Take by [facility] ISolone 2-08 mouth ity of (MEDROL, 00:00: SEE-INSTRU [place] ASH,) 4 mg 00 CTIONS. Medica l tablets follow Branch package directions methylPREDN 2021-11 Yes Take by [facility] ISolone 2-08 mouth ity of (MEDROL, 00:00: SEE-INSTRU [place] ASH,) 4 mg 00 CTIONS. Medica l tablets follow Branch package directions methylPREDN 2021-11 Yes Take by [facility] ISolone 2-08 mouth ity of (MEDROL, 00:00: SEE-INSTRU [place] ASH,) 4 mg 00 CTIONS. Medica l tablets follow Branch package directions methylPREDN 2021-11 Yes Take by [facility] ISolone 12-12 mouth ity of (MEDROL, 00:00: SEE-INSTRU [place] ASH,) 4 mg 00 CTIONS. Medica l tablets follow Branch package directions methylPREDN 2021-11 Yes Take by [facility] ISolone 2-08 mouth ity of (MEDROL, 00:00: SEE-INSTRU [place] ASH,) 4 mg 00 CTIONS. Medica l tablets follow Branch package directions methylPREDN 2021-11 Yes Take by [facility] ISolone 12-12 mouth ity of (MEDROL, 00:00: SEE-INSTRU [place] ASH,) 4 mg 00 CTIONS. Medica l tablets follow Branch package directions methylPREDN 2021-11- No [id number] Take by [facility] ISolone 2-23 mouth ity of (MEDROL, 00:00: 00:[place]-IN[place] ASH,) 4 mg 00 :00 CTIONS. Medica l tablets follow Branch package directions indomethaci 2021-11- No [id number] 50mg Take 1 [facility] n 50 mg 12-12 capsule by ity o f capsule 00:00: 05:59 mouth in [place] 00 :00 the Medical morning Branch and 1 capsule at noon and 1 capsule in the evening. Take with meals. Do all this for 5 days. indomethaci 2021-11- No [id number] 50mg Take 1 [facility] n 50 mg 12-12 capsule by ity o f capsule 00:00: 05:59 mouth in [place] 00 :00 the Medical morning Branch and 1 capsule at noon and 1 capsule in the evening. Take with meals. Do all this for 5 days. gabapentin 2021-11 Yes [id number] 600mg Take 1 [facility] 600 mg 0-05 tablet by ity of tablet 00:00: mouth in [place] [address] the Medical morning Branch and 1 tablet at noon and 1 tablet in the evening. DULoxetine 2021-11 Yes [id number] 60mg Take 1 [facility] 60 mg 0-05 capsule by ity of capsule 00:00: mouth in [place] [address] the Medical morning Branch and 1 capsule in the evening. hydrALAZINE 2021-11 Yes [id number] 50mg Take 1 [facility] 50 mg 0-05 tablet by ity of tablet 00:00: mouth in [place] 00 the Medical morning Branch and 1 tablet in the evening. furosemide 2021-11 Yes [id number] Take lasix [facility] (LASIX) 40 0-05 02 40 mg BID ity of mg tablet 00:00: [place] [address] Medical [place] metFORMIN 2021-11 Yes [id number] 500mg Take 1 [facility] 500 mg 0-05 tablet by ity of tablet 00:00: mouth in [place] the morning Branch and 1 tablet in the evening. Take with meals. omeprazole 2021-11 Yes [id number] 40mg Take 1 [facility] 40 mg 0-05 capsule by ity of capsule 00:00: mouth in [place] 00 the morning. Branch potassium 2021-11 Yes [id number] 10meq Take 1 [facility] chloride 10 0-05 02 tablet by ity of mEq CR 00:00: mouth [place] tablet 00 every Medical Saturday, Branch Saturday and Saturday. rosuvastati 2021-11 Yes [id number] 20mg Take 1 [facility] n 20 mg 0-05 tablet by ity of tablet 00:00: mouth in [place] the morning. Branch carvediloL 2021-11 Yes [id number] 25mg Take 1 [facility] 25 mg 0-05 02 tablet by ity of tablet 00:00: mouth in [place] the morning Branch and 1 tablet in the evening. glimepiride 2021-11 Yes [id number] 2mg Take 1 [facility] 2 mg tablet 0-05 tablet by ity of 00:00: mouth in [place] the morning Branch and 1 tablet in the evening. pioglitazon 2021-11 Yes [id number] 15mg Take 1 [facility] e 15 mg 0-05 tablet by ity of tablet 00:00: mouth in [place] 00 the morning. Branch gabapentin 2021-11 Yes [id number] 600mg Take 1 [facility] 600 mg 0-05 tablet by ity of tablet 00:00: mouth in [place] 00 the Medical morning Branch and 1 tablet at noon and 1 tablet in the evening. DULoxetine 2021-11 Yes [id number] 60mg Take 1 [facility] 60 mg 0-05 capsule by ity of capsule 00:00: mouth in [place] [address] the morning Branch and 1 capsule in the evening. hydrALAZINE 2021-11 Yes [id number] 50mg Take 1 [facility] 50 mg 0-05 tablet by ity of tablet 00:00: mouth in [place] 00 the Medical morning Branch and 1 tablet in the evening. furosemide 2021-11 Yes [id number] Take lasix [facility] (LASIX) 40 0-05 02 40 mg BID ity of mg tablet 00:00: [place] 00 Medical Branch metFORMIN 2021-11 Yes [id number] 500mg Take 1 [facility] 500 mg 0-05 tablet by ity of tablet 00:00: mouth in [place] the morning Branch and 1 tablet in the evening. Take with meals. omeprazole 2021-11 Yes [id number] 40mg Take 1 [facility] 40 mg 0-05 capsule by ity of capsule 00:00: mouth in [place] the morning. Branch potassium 2021-11 Yes [id number] 10meq Take 1 [facility] chloride 10 0-05 02 tablet by ity of mEq CR 00:00: mouth [place] tablet 00 every Medical Saturday, Branch Saturday and Saturday. rosuvastati 2021-11 Yes [id number] 20mg Take 1 [facility] n 20 mg 0-05 tablet by ity of tablet 00:00: mouth in [place] the morning. Branch carvediloL 2021-11 Yes [id number] 25mg Take 1 [facility] 25 mg 0-05 02 tablet by ity of tablet 00:00: mouth in [place] the [facility] morning Branch and 1 tablet in the evening. glimepiride 2021-11 Yes [id number] 2mg Take 1 [facility] 2 mg tablet 0-05 tablet by ity of 00:00: mouth in [place] the [facility] morning [place] and 1 tablet in the evening. pioglitazon 2021-11 Yes [id number] 15mg Take 1 [facility] e 15 mg 0-05 tablet by ity of tablet 00:00: mouth in [place] 00 the morning. Branch gabapentin 2021-11 Yes [id number] 600mg Take 1 [facility] 600 mg 0-05 tablet by ity of tablet 00:00: mouth in [place] [address] the [facility] morning Branch and 1 tablet at noon and 1 tablet in the evening. DULoxetine 2021-11 Yes [id number] 60mg Take 1 [facility] 60 mg 0-05 capsule by ity of capsule 00:00: mouth in [place] [address] the [facility] morning [place] and 1 capsule in the evening. hydrALAZINE 2021-11 Yes [id number] 50mg Take 1 [facility] 50 mg 0-05 tablet by ity of tablet 00:00: mouth in [place] 00 the morning Branch and 1 tablet in the evening. furosemide 2021-11 Yes [id number] Take lasix [facility] (LASIX) 40 0-05 02 40 mg BID ity of mg tablet 00:00: [place] 00 Medical [place] metFORMIN 2021-11 Yes [id number] 500mg Take 1 [facility] 500 mg 0-05 tablet by ity of tablet 00:00: mouth in [place] the morning Branch and 1 tablet in the evening. Take with meals. omeprazole 2021-11 Yes [id number] 40mg Take 1 [facility] 40 mg 0-05 capsule by ity of capsule 00:00: mouth in [place] 00 the morning. Branch potassium 2021-11 Yes [id number] 10meq Take 1 [facility] chloride 10 0-05 02 tablet by ity of mEq CR 00:00: mouth [place] tablet 00 every Medical Saturday, Branch Saturday and Saturday. rosuvastati 2021-11 Yes [id number] 20mg Take 1 [facility] n 20 mg 0-05 tablet by ity of tablet 00:00: mouth in [place] 00 the morning. Branch carvediloL 2021-11 Yes [id number] 25mg Take 1 [facility] 25 mg 0-05 02 tablet by ity of tablet 00:00: mouth in [place] the [facility] and 1 tablet in the evening. glimepiride 2021-11 Yes [id number] 2mg Take 1 [facility] 2 mg tablet 0-05 tablet by ity of 00:00: mouth in [place] [address] the [facility] and 1 tablet in the evening. pioglitazon 2021-11 Yes [id number] 15mg Take 1 [facility] e 15 mg 0-05 tablet by ity of tablet 00:00: mouth in [place] 00 the morning. Branch gabapentin 2021-11 Yes [id number] 600mg Take 1 [facility] 600 mg 0-05 tablet by ity of tablet 00:00: mouth in [place] [address] the [facility] morning [place] and 1 tablet at noon and 1 tablet in the evening. DULoxetine 2021-11 Yes [id number] 60mg Take 1 [facility] 60 mg 0-05 capsule by ity of capsule 00:00: mouth in [place] [address] the [facility] morning [place] and 1 capsule in the evening. hydrALAZINE 2021-11 Yes [id number] 50mg Take 1 [facility] 50 mg 0-05 tablet by ity of tablet 00:00: mouth in [place] 00 the Medical morning Branch and 1 tablet in the evening. furosemide 2021-11 Yes [id number] Take lasix [facility] (LASIX) 40 0-05 02 40 mg BID ity of mg tablet 00:00: [place] 00 Medical Branch metFORMIN 2021-11 Yes [id number] 500mg Take 1 [facility] 500 mg 0-05 tablet by ity of tablet 00:00: mouth in [place] the morning Branch and 1 tablet in the evening. Take with meals. omeprazole 2021-11 Yes [id number] 40mg Take 1 [facility] 40 mg 0-05 capsule by ity of capsule 00:00: mouth in [place] the morning. Branch potassium 2021-11 Yes [id number] 10meq Take 1 [facility] chloride 10 0-05 02 tablet by ity of mEq CR 00:00: mouth [place] tablet 00 every Medical Saturday, Branch Saturday and Saturday. rosuvastati 2021-11 Yes [id number] 20mg Take 1 [facility] n 20 mg 0-05 tablet by ity of tablet 00:00: mouth in [place] the morning. Branch carvediloL 2021-11 Yes [id number] 25mg Take 1 [facility] 25 mg 0-05 02 tablet by ity of tablet 00:00: mouth in [place] the morning Branch and 1 tablet in the evening. glimepiride 2021-11 Yes [id number] 2mg Take 1 [facility] 2 mg tablet 0-05 tablet by ity of 00:00: mouth in [place] the morning Branch and 1 tablet in the evening. pioglitazon 2021-11 Yes [id number] 15mg Take 1 [facility] e 15 mg 0-05 tablet by ity of tablet 00:00: mouth in [place] 00 the morning. Branch gabapentin 2021-11 Yes [id number] 600mg Take 1 [facility] 600 mg 0-05 tablet by ity of tablet 00:00: mouth in [place] the Medical morning Branch and 1 tablet at noon and 1 tablet in the evening. DULoxetine 2021-11 Yes [id number] 60mg Take 1 [facility] 60 mg 0-05 capsule by ity of capsule 00:00: mouth in [place] [address] the Medical morning Branch and 1 capsule in the evening. hydrALAZINE 2021-11 Yes [id number] 50mg Take 1 [facility] 50 mg 0-05 tablet by ity of tablet 00:00: mouth in [place] the morning Branch and 1 tablet in the evening. furosemide 2021-11 Yes [id number] Take lasix [facility] (LASIX) 40 0-05 02 40 mg BID ity of mg tablet 00:00: [place] 00 Medical [place] metFORMIN 2021-11 Yes [id number] 500mg Take 1 [facility] 500 mg 0-05 tablet by ity of tablet 00:00: mouth in [place] the morning Branch and 1 tablet in the evening. Take with meals. omeprazole 2021-11 Yes [id number] 40mg Take 1 [facility] 40 mg 0-05 capsule by ity of capsule 00:00: mouth in [place] the . Branch potassium 2021-11 Yes [id number] 10meq Take 1 [facility] chloride 10 0-05 02 tablet by ity of mEq CR 00:00: mouth [place] tablet 00 every Medical Saturday, Branch Saturday and Saturday. rosuvastati 2021-11 Yes [id number] 20mg Take 1 [facility] n 20 mg 0-05 tablet by ity of tablet 00:00: mouth in [place] the morning. Branch carvediloL 2021-11 Yes [id number] 25mg Take 1 [facility] 25 mg 0-05 02 tablet by ity of tablet 00:00: mouth in [place] the morning Branch and 1 tablet in the evening. glimepiride 2021-11 Yes [id number] 2mg Take 1 [facility] 2 mg tablet 0-05 tablet by ity of 00:00: mouth in [place] the morning Branch and 1 tablet in the evening. pioglitazon 2021-11 Yes [id number] 15mg Take 1 [facility] e 15 mg 0-05 tablet by ity of tablet 00:00: mouth in [place] the morning. Branch gabapentin 2021-11 Yes [id number] 600mg Take 1 [facility] 600 mg 0-05 tablet by ity of tablet 00:00: mouth in [place] [address] the morning Branch and 1 tablet at noon and 1 tablet in the evening. DULoxetine 2021-11 Yes [id number] 60mg Take 1 [facility] 60 mg 0-05 capsule by ity of capsule 00:00: mouth in [place] the morning Branch and 1 capsule in the evening. hydrALAZINE 2021-11 Yes [id number] 50mg Take 1 [facility] 50 mg 0-05 tablet by ity of tablet 00:00: mouth in [place] the morning Branch and 1 tablet in the evening. furosemide 2021-11 Yes [id number] Take lasix [facility] (LASIX) 40 0-05 02 40 mg BID ity of mg tablet 00:00: [place] [address] Medical [place] metFORMIN 2021-11 Yes [id number] 500mg Take 1 [facility] 500 mg 0-05 tablet by ity of tablet 00:00: mouth in [place] the morning Branch and 1 tablet in the evening. Take with meals. omeprazole 2021-11 Yes [id number] 40mg Take 1 [facility] 40 mg 0-05 capsule by ity of capsule 00:00: mouth in [place] the . Branch potassium 2021-11 Yes [id number] 10meq Take 1 [facility] chloride 10 0-05 02 tablet by ity of mEq CR 00:00: mouth [place] tablet 00 every Medical Saturday, Branch Saturday and Saturday. rosuvastati 2021-11 Yes [id number] 20mg Take 1 [facility] n 20 mg 0-05 tablet by ity of tablet 00:00: mouth in [place] the . Branch carvediloL 2021-11 Yes [id number] 25mg Take 1 [facility] 25 mg 0-05 02 tablet by ity of tablet 00:00: mouth in [place] [address] the Branch and 1 tablet in the evening. glimepiride 2021-11 Yes [id number] 2mg Take 1 [facility] 2 mg tablet 0-05 tablet by ity of 00:00: mouth in [place] the morning Branch and 1 tablet in the evening. pioglitazon 2021-11 Yes [id number] 15mg Take 1 [facility] e 15 mg 0-05 tablet by ity of tablet 00:00: mouth in [place] [address] the . Branch gabapentin 2021-11 Yes [id number] 600mg Take 1 [facility] 600 mg 0-05 tablet by ity of tablet 00:00: mouth in [place] [address] the morning Branch and 1 tablet at noon and 1 tablet in the evening. DULoxetine 2021-11 Yes [id number] 60mg Take 1 [facility] 60 mg 0-05 capsule by ity of capsule 00:00: mouth in [place] 00 the morning Branch and 1 capsule in the evening. hydrALAZINE 2021-11 Yes [id number] 50mg Take 1 [facility] 50 mg 0-05 tablet by ity of tablet 00:00: mouth in [place] 00 the morning Branch and 1 tablet in the evening. furosemide 2021-11 Yes [id number] Take lasix [facility] (LASIX) 40 0-05 02 40 mg BID ity of mg tablet 00:00: [place] [address] Medical [place] metFORMIN 2021-11 Yes [id number] 500mg Take 1 [facility] 500 mg 0-05 tablet by ity of tablet 00:00: mouth in [place] the morning Branch and 1 tablet in the evening. Take with meals. omeprazole 2021-11 Yes [id number] 40mg Take 1 [facility] 40 mg 0-05 capsule by ity of capsule 00:00: mouth in [place] the . Branch potassium 2021-11 Yes [id number] 10meq Take 1 [facility] chloride 10 0-05 02 tablet by ity of mEq CR 00:00: mouth [place] tablet 00 every Medical Saturday, Branch Saturday and Saturday. rosuvastati 2021-11 Yes [id number] 20mg Take 1 [facility] n 20 mg 0-05 tablet by ity of tablet 00:00: mouth in [place] the morning. Branch carvediloL 2021-11 Yes [id number] 25mg Take 1 [facility] 25 mg 0-05 02 tablet by ity of tablet 00:00: mouth in [place] [address] the morning Branch and 1 tablet in the evening. glimepiride 2021-11 Yes [id number] 2mg Take 1 [facility] 2 mg tablet 0-05 tablet by ity of 00:00: mouth in [place] the morning Branch and 1 tablet in the evening. pioglitazon 2021-11 Yes [id number] 15mg Take 1 [facility] e 15 mg 0-05 tablet by ity of tablet 00:00: mouth in [place] [address] the morning. Branch gabapentin 2021-11 Yes [id number] 600mg Take 1 [facility] 600 mg 0-05 tablet by ity of tablet 00:00: mouth in [place] [address] the morning Branch and 1 tablet at noon and 1 tablet in the evening. DULoxetine 2021-11 Yes [id number] 60mg Take 1 [facility] 60 mg 0-05 capsule by ity of capsule 00:00: mouth in [place] the morning Branch and 1 capsule in the evening. hydrALAZINE 2021-11 Yes [id number] 50mg Take 1 [facility] 50 mg 0-05 tablet by ity of tablet 00:00: mouth in [place] 00 the morning Branch and 1 tablet in the evening. furosemide 2021-11 Yes [id number] Take lasix [facility] (LASIX) 40 0-05 02 40 mg BID ity of mg tablet 00:00: [place] 00 Medical [place] metFORMIN 2021-11 Yes [id number] 500mg Take 1 [facility] 500 mg 0-05 tablet by ity of tablet 00:00: mouth in [place] the morning Branch and 1 tablet in the evening. Take with meals. omeprazole 2021-11 Yes [id number] 40mg Take 1 [facility] 40 mg 0-05 capsule by ity of capsule 00:00: mouth in [place] the . Branch potassium 2021-11 Yes [id number] 10meq Take 1 [facility] chloride 10 0-05 02 tablet by ity of mEq CR 00:00: mouth [place] tablet 00 every Medical Saturday, Branch Saturday and Saturday. rosuvastati 2021-11 Yes [id number] 20mg Take 1 [facility] n 20 mg 0-05 tablet by ity of tablet 00:00: mouth in [place] the . Branch carvediloL 2021-11 Yes [id number] 25mg Take 1 [facility] 25 mg 0-05 02 tablet by ity of tablet 00:00: mouth in [place] the morning Branch and 1 tablet in the evening. glimepiride 2021-11 Yes [id number] 2mg Take 1 [facility] 2 mg tablet 0-05 tablet by ity of 00:00: mouth in [place] the morning Branch and 1 tablet in the evening. pioglitazon 2021-11 Yes [id number] 15mg Take 1 [facility] e 15 mg 0-05 tablet by ity of tablet 00:00: mouth in [place] the morning. Branch gabapentin 2021-11 Yes [id number] 600mg Take 1 [facility] 600 mg 0-05 tablet by ity of tablet 00:00: mouth in [place] [address] the morning Branch and 1 tablet at noon and 1 tablet in the evening. DULoxetine 2021-11 Yes [id number] 60mg Take 1 [facility] 60 mg 0-05 capsule by ity of capsule 00:00: mouth in [place] 00 the morning Branch and 1 capsule in the evening. hydrALAZINE 2021-11 Yes [id number] 50mg Take 1 [facility] 50 mg 0-05 tablet by ity of tablet 00:00: mouth in [place] 00 the Medical morning Branch and 1 tablet in the evening. furosemide 2021-11 Yes [id number] Take lasix [facility] (LASIX) 40 0-05 02 40 mg BID ity of mg tablet 00:00: [place] 00 Medical Branch metFORMIN 2021-11 Yes [id number] 500mg Take 1 [facility] 500 mg 0-05 tablet by ity of tablet 00:00: mouth in [place] the morning Branch and 1 tablet in the evening. Take with meals. omeprazole 2021-11 Yes [id number] 40mg Take 1 [facility] 40 mg 0-05 capsule by ity of capsule 00:00: mouth in [place] the morning. Branch potassium 2021-11 Yes [id number] 10meq Take 1 [facility] chloride 10 0-05 02 tablet by ity of mEq CR 00:00: mouth [place] tablet 00 every Medical Saturday, Branch Saturday and Saturday. rosuvastati 2021-11 Yes [id number] 20mg Take 1 [facility] n 20 mg 0-05 tablet by ity of tablet 00:00: mouth in [place] the morning. Branch carvediloL 2021-11 Yes [id number] 25mg Take 1 [facility] 25 mg 0-05 02 tablet by ity of tablet 00:00: mouth in [place] the morning Branch and 1 tablet in the evening. glimepiride 2021-11 Yes [id number] 2mg Take 1 [facility] 2 mg tablet 0-05 tablet by ity of 00:00: mouth in [place] the morning Branch and 1 tablet in the evening. pioglitazon 2021-11 Yes [id number] 15mg Take 1 [facility] e 15 mg 0-05 tablet by ity of tablet 00:00: mouth in [place] 00 the morning. Branch gabapentin 2021-11 Yes [id number] 600mg Take 1 [facility] 600 mg 0-05 tablet by ity of tablet 00:00: mouth in [place] the morning Branch and 1 tablet at noon and 1 tablet in the evening. DULoxetine 2021-11 Yes [id number] 60mg Take 1 [facility] 60 mg 0-05 capsule by ity of capsule 00:00: mouth in [place] 00 the Medical morning Branch and 1 capsule in the evening. hydrALAZINE 2021-11 Yes [id number] 50mg Take 1 [facility] 50 mg 0-05 tablet by ity of tablet 00:00: mouth in [place] 00 the Medical morning Branch and 1 tablet in the evening. furosemide 2021-11 Yes [id number] Take lasix [facility] (LASIX) 40 0-05 02 40 mg BID ity of mg tablet 00:00: [place] 00 [facility] metFORMIN 2021-11 Yes [id number] 500mg Take 1 [facility] 500 mg 0-05 tablet by ity of tablet 00:00: mouth in [place] 00 the morning Branch and 1 tablet in the evening. Take with meals. omeprazole 2021-11 Yes [id number] 40mg Take 1 [facility] 40 mg 0-05 capsule by ity of capsule 00:00: mouth in [place] the morning. Branch potassium 2021-11 Yes [id number] 10meq Take 1 [facility] chloride 10 0-05 02 tablet by ity of mEq CR 00:00: mouth [place] tablet 00 every Medical Saturday, Branch Saturday and Saturday. rosuvastati 2021-11 Yes [id number] 20mg Take 1 [facility] n 20 mg 0-05 tablet by ity of tablet 00:00: mouth in [place] 00 the morning. Branch carvediloL 2021-11 Yes [id number] 25mg Take 1 [facility] 25 mg 0-05 02 tablet by ity of tablet 00:00: mouth in [place] 00 the Medical morning Branch and 1 tablet in the evening. glimepiride 2021-11 Yes [id number] 2mg Take 1 [facility] 2 mg tablet 0-05 tablet by ity of 00:00: mouth in [place] 00 the Medical morning Branch and 1 tablet in the evening. pioglitazon 2021-11 Yes [id number] 15mg Take 1 [facility] e 15 mg 0-05 tablet by ity of tablet 00:00: mouth in [place] 00 the morning. Branch gabapentin 2021-11 Yes [id number] 600mg Take 1 [facility] 600 mg 0-05 tablet by ity of tablet 00:00: mouth in [place] 00 the Medical morning Branch and 1 tablet at noon and 1 tablet in the evening. DULoxetine 2021-11 Yes [id number] 60mg Take 1 [facility] 60 mg 0-05 capsule by ity of capsule 00:00: mouth in [place] [address] the morning [place] and 1 capsule in the evening. hydrALAZINE 2021-11 Yes [id number] 50mg Take 1 [facility] 50 mg 0-05 tablet by ity of tablet 00:00: mouth in [place] [address] the [facility] and 1 tablet in the evening. furosemide 2021-11 Yes [id number] Take lasix [facility] (LASIX) 40 0-05 02 40 mg BID ity of mg tablet 00:00: [address] metFORMIN 2021-11 Yes [id number] 500mg Take 1 [facility] 500 mg 0-05 tablet by ity of tablet 00:00: mouth in [place] [address] the [facility] and 1 tablet in the evening. Take with meals. omeprazole 2021-11 Yes [id number] 40mg Take 1 [facility] 40 mg 0-05 capsule by ity of capsule 00:00: mouth in [place] [address] the . Branch potassium 2021-11 Yes [id number] 10meq Take 1 [facility] chloride 10 0-05 02 tablet by ity of mEq CR 00:00: mouth [place] tablet 00 every Medical Saturday, Branch Saturday and Saturday. rosuvastati 2021-11 Yes [id number] 20mg Take 1 [facility] n 20 mg 0-05 tablet by ity of tablet 00:00: mouth in [place] [address] the . Branch carvediloL 2021-11 Yes [id number] 25mg Take 1 [facility] 25 mg 0-05 02 tablet by ity of tablet 00:00: mouth in [place] [address] the [facility] and 1 tablet in the evening. glimepiride 2021-11 Yes [id number] 2mg Take 1 [facility] 2 mg tablet 0-05 tablet by ity of 00:00: mouth in [place] [address] the [facility] and 1 tablet in the evening. pioglitazon 2021-11 Yes [id number] 15mg Take 1 [facility] e 15 mg 0-05 tablet by ity of tablet 00:00: mouth in [place] [address] the morning. Branch gabapentin 2021-11 Yes [id number] 600mg Take 1 [facility] 600 mg 0-05 tablet by ity of tablet 00:00: mouth in [place] 00 the morning Branch and 1 tablet at noon and 1 tablet in the evening. DULoxetine 2021-11 Yes [id number] 60mg Take 1 [facility] 60 mg 0-05 capsule by ity of capsule 00:00: mouth in [place] 00 the morning Branch and 1 capsule in the evening. hydrALAZINE 2021-11 Yes [id number] 50mg Take 1 [facility] 50 mg 0-05 tablet by ity of tablet 00:00: mouth in [place] the morning Branch and 1 tablet in the evening. furosemide 2021-11 Yes [id number] Take lasix [facility] (LASIX) 40 0-05 02 40 mg BID ity of mg tablet 00:00: [place] [address] Medical Branch metFORMIN 2021-11 Yes [id number] 500mg Take 1 [facility] 500 mg 0-05 tablet by ity of tablet 00:00: mouth in [place] [address] the Branch and 1 tablet in the evening. Take with meals. omeprazole 2021-11 Yes [id number] 40mg Take 1 [facility] 40 mg 0-05 capsule by ity of capsule 00:00: mouth in [place] the . Branch potassium 2021-11 Yes [id number] 10meq Take 1 [facility] chloride 10 0-05 02 tablet by ity of mEq CR 00:00: mouth [place] tablet 00 every Medical Saturday, Branch Saturday and Saturday. rosuvastati 2021-11 Yes [id number] 20mg Take 1 [facility] n 20 mg 0-05 tablet by ity of tablet 00:00: mouth in [place] the morning. Branch carvediloL 2021-11 Yes [id number] 25mg Take 1 [facility] 25 mg 0-05 02 tablet by ity of tablet 00:00: mouth in [place] [address] the morning Branch and 1 tablet in the evening. glimepiride 2021-11 Yes [id number] 2mg Take 1 [facility] 2 mg tablet 0-05 tablet by ity of 00:00: mouth in [place] the morning Branch and 1 tablet in the evening. pioglitazon 2021-11 Yes [id number] 15mg Take 1 [facility] e 15 mg 0-05 tablet by ity of tablet 00:00: mouth in [place] [address] the morning. Branch gabapentin 2021-11 Yes [id number] 600mg Take 1 [facility] 600 mg 0-05 tablet by ity of tablet 00:00: mouth in [place] 00 the Medical morning Branch and 1 tablet at noon and 1 tablet in the evening. DULoxetine 2021-11 Yes [id number] 60mg Take 1 [facility] 60 mg 0-05 capsule by ity of capsule 00:00: mouth in [place] 00 the morning Branch and 1 capsule in the evening. hydrALAZINE 2021-11 Yes [id number] 50mg Take 1 [facility] 50 mg 0-05 tablet by ity of tablet 00:00: mouth in [place] 00 the Medical morning Branch and 1 tablet in the evening. furosemide 2021-11 Yes [id number] Take lasix [facility] (LASIX) 40 0-05 02 40 mg BID ity of mg tablet 00:00: [address] metFORMIN 2021-11 Yes [id number] 500mg Take 1 [facility] 500 mg 0-05 tablet by ity of tablet 00:00: mouth in [place] the morning Branch and 1 tablet in the evening. Take with meals. omeprazole 2021-11 Yes [id number] 40mg Take 1 [facility] 40 mg 0-05 capsule by ity of capsule 00:00: mouth in [place] the morning. Branch potassium 2021-11 Yes [id number] 10meq Take 1 [facility] chloride 10 0-05 02 tablet by ity of mEq CR 00:00: mouth [place] tablet 00 every Medical Saturday, Branch Saturday and Saturday. rosuvastati 2021-11 Yes [id number] 20mg Take 1 [facility] n 20 mg 0-05 tablet by ity of tablet 00:00: mouth in [place] 00 the morning. Branch carvediloL 2021-11 Yes [id number] 25mg Take 1 [facility] 25 mg 0-05 02 tablet by ity of tablet 00:00: mouth in [place] 00 the Medical morning Branch and 1 tablet in the evening. glimepiride 2021-11 Yes [id number] 2mg Take 1 [facility] 2 mg tablet 0-05 tablet by ity of 00:00: mouth in [place] the Medical morning Branch and 1 tablet in the evening. pioglitazon 2021-11 Yes [id number] 15mg Take 1 [facility] e 15 mg 0-05 tablet by ity of tablet 00:00: mouth in [place] 00 the morning. Branch gabapentin 2021-11 Yes [id number] 600mg Take 1 [facility] 600 mg 0-05 tablet by ity of tablet 00:00: mouth in [place] 00 the morning Branch and 1 tablet at noon and 1 tablet in the evening. DULoxetine 2021-11 Yes [id number] 60mg Take 1 [facility] 60 mg 0-05 capsule by ity of capsule 00:00: mouth in [place] the morning Branch and 1 capsule in the evening. hydrALAZINE 2021-11 Yes [id number] 50mg Take 1 [facility] 50 mg 0-05 tablet by ity of tablet 00:00: mouth in [place] 00 the morning Branch and 1 tablet in the evening. furosemide 2021-11 Yes [id number] Take lasix [facility] (LASIX) 40 0-05 02 40 mg BID ity of mg tablet 00:00: [address] metFORMIN 2021-11 Yes [id number] 500mg Take 1 [facility] 500 mg 0-05 tablet by ity of tablet 00:00: mouth in [place] the morning Branch and 1 tablet in the evening. Take with meals. omeprazole 2021-11 Yes [id number] 40mg Take 1 [facility] 40 mg 0-05 capsule by ity of capsule 00:00: mouth in [place] the . Branch potassium 2021-11 Yes [id number] 10meq Take 1 [facility] chloride 10 0-05 02 tablet by ity of mEq CR 00:00: mouth [place] tablet 00 every Medical Saturday, Branch Saturday and Saturday. rosuvastati 2021-11 Yes [id number] 20mg Take 1 [facility] n 20 mg 0-05 tablet by ity of tablet 00:00: mouth in [place] the morning. Branch carvediloL 2021-11 Yes [id number] 25mg Take 1 [facility] 25 mg 0-05 02 tablet by ity of tablet 00:00: mouth in [place] the morning Branch and 1 tablet in the evening. glimepiride 2021-11 Yes [id number] 2mg Take 1 [facility] 2 mg tablet 0-05 tablet by ity of 00:00: mouth in [place] the morning Branch and 1 tablet in the evening. pioglitazon 2021-11 Yes [id number] 15mg Take 1 [facility] e 15 mg 0-05 tablet by ity of tablet 00:00: mouth in [place] 00 the morning. Branch gabapentin 2021-11 Yes [id number] 600mg Take 1 [facility] 600 mg 0-05 tablet by ity of tablet 00:00: mouth in [place] the Branch and 1 tablet at noon and 1 tablet in the evening. DULoxetine 2021-11 Yes [id number] 60mg Take 1 [facility] 60 mg 0-05 capsule by ity of capsule 00:00: mouth in [place] [address] the morning [place] and 1 capsule in the evening. hydrALAZINE 2021-11 Yes [id number] 50mg Take 1 [facility] 50 mg 0-05 tablet by ity of tablet 00:00: mouth in [place] [address] the morning [place] and 1 tablet in the evening. furosemide 2021-11 Yes [id number] Take lasix [facility] (LASIX) 40 0-05 02 40 mg BID ity of mg tablet 00:00: [address] metFORMIN 2021-11 Yes [id number] 500mg Take 1 [facility] 500 mg 0-05 tablet by ity of tablet 00:00: mouth in [place] the [place] and 1 tablet in the evening. Take with meals. omeprazole 2021-11 Yes [id number] 40mg Take 1 [facility] 40 mg 0-05 capsule by ity of capsule 00:00: mouth in [place] the . Branch potassium 2021-11 Yes [id number] 10meq Take 1 [facility] chloride 10 0-05 02 tablet by ity of mEq CR 00:00: mouth [place] tablet 00 every Medical Saturday, Branch Saturday and Saturday. rosuvastati 2021-11 Yes [id number] 20mg Take 1 [facility] n 20 mg 0-05 tablet by ity of tablet 00:00: mouth in [place] the morning. Branch carvediloL 2021-11 Yes [id number] 25mg Take 1 [facility] 25 mg 0-05 02 tablet by ity of tablet 00:00: mouth in [place] [address] the Branch and 1 tablet in the evening. glimepiride 2021-11 Yes [id number] 2mg Take 1 [facility] 2 mg tablet 0-05 tablet by ity of 00:00: mouth in [place] [address] the morning [place] and 1 tablet in the evening. pioglitazon 2021-11 Yes [id number] 15mg Take 1 [facility] e 15 mg 0-05 tablet by ity of tablet 00:00: mouth in [place] the morning. Branch gabapentin 2021-11 Yes [id number] 600mg Take 1 [facility] 600 mg 0-05 tablet by ity of tablet 00:00: mouth in [place] the morning Branch and 1 tablet at noon and 1 tablet in the evening. DULoxetine 2021-11 Yes [id number] 60mg Take 1 [facility] 60 mg 0-05 capsule by ity of capsule 00:00: mouth in [place] the morning Branch and 1 capsule in the evening. hydrALAZINE 2021-11 Yes [id number] 50mg Take 1 [facility] 50 mg 0-05 tablet by ity of tablet 00:00: mouth in [place] the morning [place] and 1 tablet in the evening. furosemide 2021-11 Yes [id number] Take lasix [facility] (LASIX) 40 0-05 02 40 mg BID ity of mg tablet 00:00: [place] [address] Medical [place] metFORMIN 2021-11 Yes [id number] 500mg Take 1 [facility] 500 mg 0-05 tablet by ity of tablet 00:00: mouth in [place] the [place] and 1 tablet in the evening. Take with meals. omeprazole 2021-11 Yes [id number] 40mg Take 1 [facility] 40 mg 0-05 capsule by ity of capsule 00:00: mouth in [place] the . Branch potassium 2021-11 Yes [id number] 10meq Take 1 [facility] chloride 10 0-05 02 tablet by ity of mEq CR 00:00: mouth [place] tablet 00 every Medical Saturday, Branch Saturday and Saturday. rosuvastati 2021-11 Yes [id number] 20mg Take 1 [facility] n 20 mg 0-05 tablet by ity of tablet 00:00: mouth in [place] the morning. Branch carvediloL 2021-11 Yes [id number] 25mg Take 1 [facility] 25 mg 0-05 02 tablet by ity of tablet 00:00: mouth in [place] [address] the Branch and 1 tablet in the evening. glimepiride 2021-11 Yes [id number] 2mg Take 1 [facility] 2 mg tablet 0-05 tablet by ity of 00:00: mouth in [place] [address] the morning [place] and 1 tablet in the evening. pioglitazon 2021-11 Yes [id number] 15mg Take 1 [facility] e 15 mg 0-05 tablet by ity of tablet 00:00: mouth in [place] the morning. Branch gabapentin 2021-11 Yes [id number] 600mg Take 1 [facility] 600 mg 0-05 tablet by ity of tablet 00:00: mouth in [place] the morning Branch and 1 tablet at noon and 1 tablet in the evening. DULoxetine 2021-11 Yes [id number] 60mg Take 1 [facility] 60 mg 0-05 capsule by ity of capsule 00:00: mouth in [place] the Branch and 1 capsule in the evening. hydrALAZINE 2021-11 Yes [id number] 50mg Take 1 [facility] 50 mg 0-05 tablet by ity of tablet 00:00: mouth in [place] the Branch and 1 tablet in the evening. furosemide 2021-11 Yes [id number] Take lasix [facility] (LASIX) 40 0-05 02 40 mg BID ity of mg tablet 00:00: [address] metFORMIN 2021-11 Yes [id number] 500mg Take 1 [facility] 500 mg 0-05 tablet by ity of tablet 00:00: mouth in [place] the [place] and 1 tablet in the evening. Take with meals. omeprazole 2021-11 Yes [id number] 40mg Take 1 [facility] 40 mg 0-05 capsule by ity of capsule 00:00: mouth in [place] the . Branch potassium 2021-11 Yes [id number] 10meq Take 1 [facility] chloride 10 0-05 02 tablet by ity of mEq CR 00:00: mouth [place] tablet 00 every Medical Saturday, Branch Saturday and Saturday. rosuvastati 2021-11 Yes [id number] 20mg Take 1 [facility] n 20 mg 0-05 tablet by ity of tablet 00:00: mouth in [place] the morning. Branch carvediloL 2021-11 Yes [id number] 25mg Take 1 [facility] 25 mg 0-05 02 tablet by ity of tablet 00:00: mouth in [place] the morning Branch and 1 tablet in the evening. glimepiride 2021-11 Yes [id number] 2mg Take 1 [facility] 2 mg tablet 0-05 tablet by ity of 00:00: mouth in [place] [address] the morning [place] and 1 tablet in the evening. pioglitazon 2021-11 Yes [id number] 15mg Take 1 [facility] e 15 mg 0-05 tablet by ity of tablet 00:00: mouth in [place] the . Branch gabapentin 2021-11 Yes [id number] 600mg Take 1 [facility] 600 mg 0-05 tablet by ity of tablet 00:00: mouth in [place] the morning Branch and 1 tablet at noon and 1 tablet in the evening. DULoxetine 2021-11 Yes [id number] 60mg Take 1 [facility] 60 mg 0-05 capsule by ity of capsule 00:00: mouth in [place] the morning Branch and 1 capsule in the evening. hydrALAZINE 2021-11 Yes [id number] 50mg Take 1 [facility] 50 mg 0-05 tablet by ity of tablet 00:00: mouth in [place] the morning Branch and 1 tablet in the evening. furosemide 2021-11 Yes [id number] Take lasix [facility] (LASIX) 40 0-05 02 40 mg BID ity of mg tablet 00:00: [address] metFORMIN 2021-11 Yes [id number] 500mg Take 1 [facility] 500 mg 0-05 tablet by ity of tablet 00:00: mouth in [place] the Branch and 1 tablet in the evening. Take with meals. omeprazole 2021-11 Yes [id number] 40mg Take 1 [facility] 40 mg 0-05 capsule by ity of capsule 00:00: mouth in [place] the . Branch potassium 2021-11 Yes [id number] 10meq Take 1 [facility] chloride 10 0-05 02 tablet by ity of mEq CR 00:00: mouth [place] tablet 00 every Medical Saturday, Branch Saturday and Saturday. rosuvastati 2021-11 Yes [id number] 20mg Take 1 [facility] n 20 mg 0-05 tablet by ity of tablet 00:00: mouth in [place] the morning. Branch carvediloL 2021-11 Yes [id number] 25mg Take 1 [facility] 25 mg 0-05 02 tablet by ity of tablet 00:00: mouth in [place] the morning Branch and 1 tablet in the evening. glimepiride 2021-11 Yes [id number] 2mg Take 1 [facility] 2 mg tablet 0-05 tablet by ity of 00:00: mouth in [place] the morning Branch and 1 tablet in the evening. pioglitazon 2021-11 Yes [id number] 15mg Take 1 [facility] e 15 mg 0-05 tablet by ity of tablet 00:00: mouth in [place] the morning. Branch gabapentin 2021-11 Yes [id number] 600mg Take 1 [facility] 600 mg 0-05 tablet by ity of tablet 00:00: mouth in [place] the morning Branch and 1 tablet at noon and 1 tablet in the evening. DULoxetine 2021-11 Yes [id number] 60mg Take 1 [facility] 60 mg 0-05 capsule by ity of capsule 00:00: mouth in [place] the morning Branch and 1 capsule in the evening. hydrALAZINE 2021-11 Yes [id number] 50mg Take 1 [facility] 50 mg 0-05 tablet by ity of tablet 00:00: mouth in [place] the morning Branch and 1 tablet in the evening. furosemide 2021-11 Yes [id number] Take lasix [facility] (LASIX) 40 0-05 02 40 mg BID ity of mg tablet 00:00: [address] metFORMIN 2021-11 Yes [id number] 500mg Take 1 [facility] 500 mg 0-05 tablet by ity of tablet 00:00: mouth in [place] the Branch and 1 tablet in the evening. Take with meals. omeprazole 2021-11 Yes [id number] 40mg Take 1 [facility] 40 mg 0-05 capsule by ity of capsule 00:00: mouth in [place] the . Branch potassium 2021-11 Yes [id number] 10meq Take 1 [facility] chloride 10 0-05 02 tablet by ity of mEq CR 00:00: mouth [place] tablet 00 every Medical Saturday, Branch Saturday and Saturday. rosuvastati 2021-11 Yes [id number] 20mg Take 1 [facility] n 20 mg 0-05 tablet by ity of tablet 00:00: mouth in [place] the morning. Branch carvediloL 2021-11 Yes [id number] 25mg Take 1 [facility] 25 mg 0-05 02 tablet by ity of tablet 00:00: mouth in [place] the morning Branch and 1 tablet in the evening. glimepiride 2021-11 Yes [id number] 2mg Take 1 [facility] 2 mg tablet 0-05 tablet by ity of 00:00: mouth in [place] the morning Branch and 1 tablet in the evening. pioglitazon 2021-11 Yes [id number] 15mg Take 1 [facility] e 15 mg 0-05 tablet by ity of tablet 00:00: mouth in [place] the . Branch gabapentin 2021-11 Yes [id number] 600mg Take 1 [facility] 600 mg 0-05 tablet by ity of tablet 00:00: mouth in [place] the morning Branch and 1 tablet at noon and 1 tablet in the evening. DULoxetine 2021-11 Yes [id number] 60mg Take 1 [facility] 60 mg 0-05 capsule by ity of capsule 00:00: mouth in [place] the morning Branch and 1 capsule in the evening. hydrALAZINE 2021-11 Yes [id number] 50mg Take 1 [facility] 50 mg 0-05 tablet by ity of tablet 00:00: mouth in [place] [address] the morning [place] and 1 tablet in the evening. furosemide 2021-11 Yes [id number] Take lasix [facility] (LASIX) 40 0-05 02 40 mg BID ity of mg tablet 00:00: [address] metFORMIN 2021-11 Yes [id number] 500mg Take 1 [facility] 500 mg 0-05 tablet by ity of tablet 00:00: mouth in [place] the [place] and 1 tablet in the evening. Take with meals. omeprazole 2021-11 Yes [id number] 40mg Take 1 [facility] 40 mg 0-05 capsule by ity of capsule 00:00: mouth in [place] the . Branch potassium 2021-11 Yes [id number] 10meq Take 1 [facility] chloride 10 0-05 02 tablet by ity of mEq CR 00:00: mouth [place] tablet 00 every Medical Saturday, Branch Saturday and Saturday. rosuvastati 2021-11 Yes [id number] 20mg Take 1 [facility] n 20 mg 0-05 tablet by ity of tablet 00:00: mouth in [place] 00 the morning. Branch carvediloL 2021-11 Yes [id number] 25mg Take 1 [facility] 25 mg 0-05 02 tablet by ity of tablet 00:00: mouth in [place] [address] the [facility] morning Branch and 1 tablet in the evening. glimepiride 2021-11 Yes [id number] 2mg Take 1 [facility] 2 mg tablet 0-05 tablet by ity of 00:00: mouth in [place] 00 the morning Branch and 1 tablet in the evening. pioglitazon 2021-11 Yes [id number] 15mg Take 1 [facility] e 15 mg 0-05 tablet by ity of tablet 00:00: mouth in [place] 00 the morning. Branch gabapentin 2021-11 Yes [id number] 600mg Take 1 [facility] 600 mg 0-05 tablet by ity of tablet 00:00: mouth in [place] 00 the morning Branch and 1 tablet at noon and 1 tablet in the evening. DULoxetine 2021-11 Yes [id number] 60mg Take 1 [facility] 60 mg 0-05 capsule by ity of capsule 00:00: mouth in [place] the morning Branch and 1 capsule in the evening. hydrALAZINE 2021-11 Yes [id number] 50mg Take 1 [facility] 50 mg 0-05 tablet by ity of tablet 00:00: mouth in [place] [address] the morning Branch and 1 tablet in the evening. furosemide 2021-11 Yes [id number] Take lasix [facility] (LASIX) 40 0-05 02 40 mg BID ity of mg tablet 00:00: [place] 00 [facility] metFORMIN 2021-11 Yes [id number] 500mg Take 1 [facility] 500 mg 0-05 tablet by ity of tablet 00:00: mouth in [place] the Branch and 1 tablet in the evening. Take with meals. omeprazole 2021-11 Yes [id number] 40mg Take 1 [facility] 40 mg 0-05 capsule by ity of capsule 00:00: mouth in [place] the . Branch potassium 2021-11 Yes [id number] 10meq Take 1 [facility] chloride 10 0-05 02 tablet by ity of mEq CR 00:00: mouth [place] tablet 00 every Medical Saturday, Branch Saturday and Saturday. rosuvastati 2021-11 Yes [id number] 20mg Take 1 [facility] n 20 mg 0-05 tablet by ity of tablet 00:00: mouth in [place] 00 the morning. Branch carvediloL 2021-11 Yes [id number] 25mg Take 1 [facility] 25 mg 0-05 02 tablet by ity of tablet 00:00: mouth in [place] [address] the morning Branch and 1 tablet in the evening. glimepiride 2021-11 Yes [id number] 2mg Take 1 [facility] 2 mg tablet 0-05 tablet by ity of 00:00: mouth in [place] 00 the morning Branch and 1 tablet in the evening. pioglitazon 2021-11 Yes [id number] 15mg Take 1 [facility] e 15 mg 0-05 tablet by ity of tablet 00:00: mouth in [place] 00 the morning. Branch gabapentin 2021-11 Yes [id number] 600mg Take 1 [facility] 600 mg 0-05 tablet by ity of tablet 00:00: mouth in [place] [address] the morning Branch and 1 tablet at noon and 1 tablet in the evening. DULoxetine 2021-11 Yes [id number] 60mg Take 1 [facility] 60 mg 0-05 capsule by ity of capsule 00:00: mouth in [place] [address] the morning [place] and 1 capsule in the evening. hydrALAZINE 2021-11 Yes [id number] 50mg Take 1 [facility] 50 mg 0-05 tablet by ity of tablet 00:00: mouth in [place] [address] the morning [place] and 1 tablet in the evening. furosemide 2021-11 Yes [id number] Take lasix [facility] (LASIX) 40 0-05 02 40 mg BID ity of mg tablet 00:00: [address] metFORMIN 2021-11 Yes [id number] 500mg Take 1 [facility] 500 mg 0-05 tablet by ity of tablet 00:00: mouth in [place] [address] the [place] and 1 tablet in the evening. Take with meals. omeprazole 2021-11 Yes [id number] 40mg Take 1 [facility] 40 mg 0-05 capsule by ity of capsule 00:00: mouth in [place] the . Branch potassium 2021-11 Yes [id number] 10meq Take 1 [facility] chloride 10 0-05 02 tablet by ity of mEq CR 00:00: mouth [place] tablet 00 every Medical Saturday, Branch Saturday and Saturday. rosuvastati 2021-11 Yes [id number] 20mg Take 1 [facility] n 20 mg 0-05 tablet by ity of tablet 00:00: mouth in [place] 00 the morning. Branch carvediloL 2021-11 Yes [id number] 25mg Take 1 [facility] 25 mg 0-05 02 tablet by ity of tablet 00:00: mouth in [place] [address] the morning [place] and 1 tablet in the evening. glimepiride 2021-11 Yes [id number] 2mg Take 1 [facility] 2 mg tablet 0-05 tablet by ity of 00:00: mouth in [place] the morning Branch and 1 tablet in the evening. pioglitazon 2021-11 Yes [id number] 15mg Take 1 [facility] e 15 mg 0-05 tablet by ity of tablet 00:00: mouth in [place] the morning. Branch gabapentin 2021-11 Yes [id number] 600mg Take 1 [facility] 600 mg 0-05 tablet by ity of tablet 00:00: mouth in [place] 00 the morning Branch and 1 tablet at noon and 1 tablet in the evening. DULoxetine 2021-11 Yes [id number] 60mg Take 1 [facility] 60 mg 0-05 capsule by ity of capsule 00:00: mouth in [place] the morning Branch and 1 capsule in the evening. hydrALAZINE 2021-11 Yes [id number] 50mg Take 1 [facility] 50 mg 0-05 tablet by ity of tablet 00:00: mouth in [place] the morning Branch and 1 tablet in the evening. furosemide 2021-11 Yes [id number] Take lasix [facility] (LASIX) 40 0-05 02 40 mg BID ity of mg tablet 00:00: [place] 00 Medical [place] metFORMIN 2021-11 Yes [id number] 500mg Take 1 [facility] 500 mg 0-05 tablet by ity of tablet 00:00: mouth in [place] the Branch and 1 tablet in the evening. Take with meals. omeprazole 2021-11 Yes [id number] 40mg Take 1 [facility] 40 mg 0-05 capsule by ity of capsule 00:00: mouth in [place] the . Branch potassium 2021-11 Yes [id number] 10meq Take 1 [facility] chloride 10 0-05 02 tablet by ity of mEq CR 00:00: mouth [place] tablet 00 every Medical Saturday, Branch Saturday and Saturday. rosuvastati 2021-11 Yes [id number] 20mg Take 1 [facility] n 20 mg 0-05 tablet by ity of tablet 00:00: mouth in [place] 00 the morning. Branch carvediloL 2021-11 Yes [id number] 25mg Take 1 [facility] 25 mg 0-05 02 tablet by ity of tablet 00:00: mouth in [place] [address] the morning Branch and 1 tablet in the evening. glimepiride 2021-11 Yes [id number] 2mg Take 1 [facility] 2 mg tablet 0-05 tablet by ity of 00:00: mouth in [place] the morning Branch and 1 tablet in the evening. pioglitazon 2021-11 Yes [id number] 15mg Take 1 [facility] e 15 mg 0-05 tablet by ity of tablet 00:00: mouth in [place] the morning. Branch gabapentin 2021-11 Yes [id number] 600mg Take 1 [facility] 600 mg 0-05 tablet by ity of tablet 00:00: mouth in [place] the morning Branch and 1 tablet at noon and 1 tablet in the evening. DULoxetine 2021-11 Yes [id number] 60mg Take 1 [facility] 60 mg 0-05 capsule by ity of capsule 00:00: mouth in [place] the morning Branch and 1 capsule in the evening. hydrALAZINE 2021-11 Yes [id number] 50mg Take 1 [facility] 50 mg 0-05 tablet by ity of tablet 00:00: mouth in [place] the morning [place] and 1 tablet in the evening. furosemide 2021-11 Yes [id number] Take lasix [facility] (LASIX) 40 0-05 02 40 mg BID ity of mg tablet 00:00: [address] omeprazole 2021-11 Yes [id number] 40mg Take 1 [facility] 40 mg 0-05 capsule by ity of capsule 00:00: mouth in [place] the morning. Branch potassium 2021-11 Yes [id number] 10meq Take 1 [facility] chloride 10 0-05 02 tablet by ity of mEq CR 00:00: mouth [place] tablet 00 every Medical Saturday, Branch Saturday and Saturday. rosuvastati 2021-11 Yes [id number] 20mg Take 1 [facility] n 20 mg 0-05 tablet by ity of tablet 00:00: mouth in [place] the morning. Branch carvediloL 2021-11 Yes [id number] 25mg Take 1 [facility] 25 mg 0-05 02 tablet by ity of tablet 00:00: mouth in [place] [address] the morning Branch and 1 tablet in the evening. pioglitazon 2021-11 Yes [id number] 15mg Take 1 [facility] e 15 mg 0-05 tablet by ity of tablet 00:00: mouth in [place] the morning. Branch gabapentin 2021-11 Yes [id number] 600mg Take 1 [facility] 600 mg 0-05 tablet by ity of tablet 00:00: mouth in [place] the morning Branch and 1 tablet at noon and 1 tablet in the evening. DULoxetine 2021-11 Yes [id number] 60mg Take 1 [facility] 60 mg 0-05 capsule by ity of capsule 00:00: mouth in [place] 00 the morning Branch and 1 capsule in the evening. hydrALAZINE 2021-11 Yes [id number] 50mg Take 1 [facility] 50 mg 0-05 tablet by ity of tablet 00:00: mouth in [place] the morning Branch and 1 tablet in the evening. furosemide 2021-11 Yes [id number] Take lasix [facility] (LASIX) 40 0-05 02 40 mg BID ity of mg tablet 00:00: [place] [address] Medical Branch omeprazole 2021-11 Yes [id number] 40mg Take 1 [facility] 40 mg 0-05 capsule by ity of capsule 00:00: mouth in [place] the . Branch potassium 2021-11 Yes [id number] 10meq Take 1 [facility] chloride 10 0-05 02 tablet by ity of mEq CR 00:00: mouth [place] tablet 00 every Medical Saturday, Branch Saturday and Saturday. rosuvastati 2021-11 Yes [id number] 20mg Take 1 [facility] n 20 mg 0-05 tablet by ity of tablet 00:00: mouth in [place] the . Branch carvediloL 2021-11 Yes [id number] 25mg Take 1 [facility] 25 mg 0-05 02 tablet by ity of tablet 00:00: mouth in [place] the Medical morning Branch and 1 tablet in the evening. pioglitazon 2021-11 Yes [id number] 15mg Take 1 [facility] 15 mg 0-05 tablet by [facility] of tablet 00:00: mouth in [place] the morning. Branch gabapentin 2021-11 Yes [id number] 600mg Take 1 [facility] 600 mg 0-05 tablet by [facility] of tablet 00:00: mouth in [place] [address] the Medical morning Branch and 1 tablet at noon and 1 tablet in the evening. DULoxetine 2021-11 Yes [id number] 60mg Take 1 [facility] 60 mg 0-05 capsule by [facility] of capsule 00:00: mouth in [place] 00 the Medical morning Branch and 1 capsule in the evening. hydrALAZINE 2021-11 Yes [id number] 50mg Take 1 [facility] 50 mg 0-05 tablet by [facility] of tablet 00:00: mouth in [place] 00 the Medical morning Branch and 1 tablet in the evening. furosemide 2021-11 Yes [id number] Take lasix [facility] (LASIX) 40 0-05 02 40 mg BID [facility] of mg tablet 00:00: [place] 00 Medical Branch omeprazole 2021-11 Yes [id number] 40mg Take 1 [facility] 40 mg 0-05 capsule by [facility] of capsule 00:00: mouth in [place] 00 the morning. Branch potassium 2021-11 Yes [id number] 10meq Take 1 [facility] chloride 10 0-05 02 tablet by it[facility] of mEq CR 00:00: mouth [place] tablet 00 every Medical Saturday, Branch Saturday and Saturday. rosuvastati 2021-11 Yes [id number] 20mg Take 1 [facility] n 20 mg 0-05 tablet by [facility] of tablet 00:00: mouth in [place] the morning. Branch carvediloL 2021-11 Yes [id number] 25mg Take 1 [facility] 25 mg 0-05 02 tablet by [facility] of tablet 00:00: mouth in [place] [address] the [facility] morning Branch and 1 tablet in the evening. pioglitazon 2021-11 Yes [id number] 15mg Take 1 [facility] e 15 mg 0-05 tablet by it[facility] of tablet 00:00: mouth in [place] the morning. Branch gabapentin 2021-11 Yes [id number] 600mg Take 1 [facility] 600 mg 0-05 tablet by [facility] of tablet 00:00: mouth in [place] 00 the Medical morning Branch and 1 tablet at noon and 1 tablet in the evening. DULoxetine 2021-11 Yes [id number] 60mg Take 1 [facility] 60 mg 0-05 capsule by [facility] of capsule 00:00: mouth in [place] [address] the [facility] morning Branch and 1 capsule in the evening. hydrALAZINE 2021-11 Yes [id number] 50mg Take 1 [facility] 50 mg 0-05 tablet by [facility] of tablet 00:00: mouth in [place] [address] the Medical morning Branch and 1 tablet in the evening. furosemide 2021-11 Yes [id number] Take lasix [facility] (LASIX) 40 0-05 02 40 mg BID it[facility] of mg tablet 00:00: [place] 00 Medical Branch omeprazole 2021-11 Yes [id number] 40mg Take 1 [facility] 40 mg 0-05 capsule by [facility] of capsule 00:00: mouth in [place] the morning. Branch potassium 2021-11 Yes [id number] 10meq Take 1 [facility] chloride 10 0-05 02 tablet by ity of mEq CR 00:00: mouth [place] tablet 00 every Medical Saturday, Branch Saturday and Saturday. rosuvastati 2021-11 Yes [id number] 20mg Take 1 [facility] n 20 mg 0-05 tablet by [facility] of tablet 00:00: mouth in [place] the morning. Branch carvediloL 2021-11 Yes [id number] 25mg Take 1 [facility] 25 mg 0-05 02 tablet by [facility] of tablet 00:00: mouth in [place] the Medical morning Branch and 1 tablet in the evening. pioglitazon 2021-11 Yes [id number] 15mg Take 1 [facility] e 15 mg 0-05 tablet by [facility] of tablet 00:00: mouth in [place] the morning. Branch gabapentin 2021-11 Yes [id number] 600mg Take 1 [facility] 600 mg 0-05 tablet by [facility] of tablet 00:00: mouth in [place] the Medical morning Branch and 1 tablet at noon and 1 tablet in the evening. DULoxetine 2021-11 Yes [id number] 60mg Take 1 [facility] 60 mg 0-05 capsule by [facility] of capsule 00:00: mouth in [place] the Medical morning Branch and 1 capsule in the evening. hydrALAZINE 2021-11 Yes [id number] 50mg Take 1 [facility] 50 mg 0-05 tablet by [facility] of tablet 00:00: mouth in [place] the Medical morning Branch and 1 tablet in the evening. furosemide 2021-11 Yes [id number] Take lasix [facility] (LASIX) 40 0-05 02 40 mg BID it[facility] of mg tablet 00:00: [place] 00 Medical Branch omeprazole 2021-11 Yes [id number] 40mg Take 1 [facility] 40 mg 0-05 capsule by [facility] of capsule 00:00: mouth in [place] the morning. Branch potassium 2021-11 Yes [id number] 10meq Take 1 [facility] chloride 10 0-05 02 tablet by ity of mEq CR 00:00: mouth [place] tablet 00 every Medical Saturday, Branch Saturday and Saturday. rosuvastati 2021-11 Yes [id number] 20mg Take 1 [facility] n 20 mg 0-05 tablet by [facility] of tablet 00:00: mouth in [place] the morning. Branch carvediloL 2021-11 Yes [id number] 25mg Take 1 [facility] 25 mg 0-05 02 tablet by it[facility] of tablet 00:00: mouth in [place] the Medical morning Branch and 1 tablet in the evening. pioglitazon 2021-11 Yes [id number] 15mg Take 1 [facility] e 15 mg 0-05 tablet by it[facility] of tablet 00:00: mouth in [place] the morning. Branch gabapentin 2021-11 Yes [id number] 600mg Take 1 [facility] 600 mg 0-05 tablet by it[facility] of tablet 00:00: mouth in [place] the morning Branch and 1 tablet at noon and 1 tablet in the evening. DULoxetine 2021-11 Yes [id number] 60mg Take 1 [facility] 60 mg 0-05 capsule by [facility] of capsule 00:00: mouth in [place] the Medical morning Branch and 1 capsule in the evening. hydrALAZINE 2021-11 Yes [id number] 50mg Take 1 [facility] 50 mg 0-05 tablet by [facility] of tablet 00:00: mouth in [place] the morning Branch and 1 tablet in the evening. furosemide 2021-11 Yes [id number] Take lasix [facility] (LASIX) 40 0-05 02 40 mg BID ity of mg tablet 00:00: [place] 00 Medical Branch omeprazole 2021-11 Yes [id number] 40mg Take 1 [facility] 40 mg 0-05 capsule by [facility] of capsule 00:00: mouth in [place] the morning. Branch potassium 2021-11 Yes [id number] 10meq Take 1 [facility] chloride 10 0-05 02 tablet by ity of mEq CR 00:00: mouth [place] tablet 00 every Medical Saturday, Branch Saturday and Saturday. rosuvastati 2021-11 Yes [id number] 20mg Take 1 [facility] n 20 mg 0-05 tablet by it[facility] of tablet 00:00: mouth in [place] the morning. Branch carvediloL 2021-11 Yes [id number] 25mg Take 1 [facility] 25 mg 0-05 02 tablet by it[facility] of tablet 00:00: mouth in [place] 00 the Medical morning Branch and 1 tablet in the evening. pioglitazon 2021-11 Yes [id number] 15mg Take 1 [facility] e 15 mg 0-05 tablet by it[facility] of tablet 00:00: mouth in [place] the morning. Branch gabapentin 2021-11 Yes [id number] 600mg Take 1 [facility] 600 mg 0-05 tablet by it[facility] of tablet 00:00: mouth in [place] the morning Branch and 1 tablet at noon and 1 tablet in the evening. DULoxetine 2021-11 Yes [id number] 60mg Take 1 [facility] 60 mg 0-05 capsule by [facility] of capsule 00:00: mouth in [place] 00 the Medical morning Branch and 1 capsule in the evening. hydrALAZINE 2021-11 Yes [id number] 50mg Take 1 [facility] 50 mg 0-05 tablet by it[facility] of tablet 00:00: mouth in [place] [address] the Medical morning Branch and 1 tablet in the evening. furosemide 2021-11 Yes [id number] Take lasix [facility] (LASIX) 40 0-05 02 40 mg BID ity of mg tablet 00:00: [place] 00 [facility] omeprazole 2021-11 Yes [id number] 40mg Take 1 [facility] 40 mg 0-05 capsule by it[facility] of capsule 00:00: mouth in [place] the morning. Branch potassium 2021-11 Yes [id number] 10meq Take 1 [facility] chloride 10 0-05 02 tablet by ity of mEq CR 00:00: mouth [place] tablet 00 every Medical Saturday, Branch Saturday and Saturday. rosuvastati 2021-11 Yes [id number] 20mg Take 1 [facility] n 20 mg 0-05 tablet by ity of tablet 00:00: mouth in [place] the morning. Branch carvediloL 2021-11 Yes [id number] 25mg Take 1 [facility] 25 mg 0-05 02 tablet by ity of tablet 00:00: mouth in [place] the Medical morning Branch and 1 tablet in the evening. pioglitazon 2021-11 Yes [id number] 15mg Take 1 [facility] e 15 mg 0-05 tablet by it[facility] of tablet 00:00: mouth in [place] the morning. Branch gabapentin 2021-11 Yes [id number] 600mg Take 1 [facility] 600 mg 0-05 tablet by it[facility] of tablet 00:00: mouth in [place] 00 the Medical morning Branch and 1 tablet at noon and 1 tablet in the evening. DULoxetine 2021-11 Yes [id number] 60mg Take 1 [facility] 60 mg 0-05 capsule by it[facility] of capsule 00:00: mouth in [place] 00 the morning Branch and 1 capsule in the evening. hydrALAZINE 2021-11 Yes [id number] 50mg Take 1 [facility] 50 mg 0-05 tablet by it[facility] of tablet 00:00: mouth in [place] the morning Branch and 1 tablet in the evening. furosemide 2021-11 Yes [id number] Take lasix [facility] (LASIX) 40 0-05 02 40 mg BID ity of mg tablet 00:00: [address] omeprazole 2021-11 Yes [id number] 40mg Take 1 [facility] 40 mg 0-05 capsule by it[facility] of capsule 00:00: mouth in [place] the morning. Branch potassium 2021-11 Yes [id number] 10meq Take 1 [facility] chloride 10 0-05 02 tablet by ity of mEq CR 00:00: mouth [place] tablet 00 every Medical Saturday, Branch Saturday and Saturday. rosuvastati 2021-11 Yes [id number] 20mg Take 1 [facility] n 20 mg 0-05 tablet by it[facility] of tablet 00:00: mouth in [place] the morning. Branch carvediloL 2021-11 Yes [id number] 25mg Take 1 [facility] 25 mg 0-05 02 tablet by it[facility] of tablet 00:00: mouth in [place] the morning Branch and 1 tablet in the evening. pioglitazon 2021-11 Yes [id number] 15mg Take 1 [facility] e 15 mg 0-05 tablet by it[facility] of tablet 00:00: mouth in [place] the morning. Branch gabapentin 2021-11 Yes [id number] 600mg Take 1 [facility] 600 mg 0-05 tablet by it[facility] of tablet 00:00: mouth in [place] the Medical morning Branch and 1 tablet at noon and 1 tablet in the evening. DULoxetine 2021-11 Yes [id number] 60mg Take 1 [facility] 60 mg 0-05 capsule by [facility] of capsule 00:00: mouth in [place] [address] the Medical morning Branch and 1 capsule in the evening. hydrALAZINE 2021-11 Yes [id number] 50mg Take 1 [facility] 50 mg 0-05 tablet by [facility] of tablet 00:00: mouth in [place] 00 the Medical morning Branch and 1 tablet in the evening. furosemide 2021-11 Yes [id number] Take lasix [facility] (LASIX) 40 0-05 02 40 mg BID ity of mg tablet 00:00: [place] 00 Medical Branch omeprazole 2021-11 Yes [id number] 40mg Take 1 [facility] 40 mg 0-05 capsule by it[facility] of capsule 00:00: mouth in [place] 00 the morning. Branch potassium 2021-11 Yes [id number] 10meq Take 1 [facility] chloride 10 0-05 02 tablet by ity of mEq CR 00:00: mouth [place] tablet 00 every Medical Saturday, Branch Saturday and Saturday. rosuvastati 2021-11 Yes [id number] 20mg Take 1 [facility] n 20 mg 0-05 tablet by it[facility] of tablet 00:00: mouth in [place] 00 the morning. Branch carvediloL 2021-11 Yes [id number] 25mg Take 1 [facility] 25 mg 0-05 02 tablet by ity of tablet 00:00: mouth in [place] [address] the Medical morning Branch and 1 tablet in the evening. pioglitazon 2021-11 Yes [id number] 15mg Take 1 [facility] e 15 mg 0-05 tablet by ity of tablet 00:00: mouth in [place] 00 the morning. Branch gabapentin 2021-11 Yes [id number] 600mg Take 1 [facility] 600 mg 0-05 tablet by ity of tablet 00:00: mouth in [place] [address] the [facility] morning Branch and 1 tablet at noon and 1 tablet in the evening. DULoxetine 2021-11 Yes [id number] 60mg Take 1 [facility] 60 mg 0-05 capsule by ity of capsule 00:00: mouth in [place] [address] the Medical morning Branch and 1 capsule in the evening. hydrALAZINE 2021-11 Yes [id number] 50mg Take 1 [facility] 50 mg 0-05 tablet by ity of tablet 00:00: mouth in [place] [address] the Medical morning Branch and 1 tablet in the evening. furosemide 2021-11 Yes [id number] Take lasix [facility] (LASIX) 40 0-05 02 40 mg BID ity of mg tablet 00:00: [place] 00 Medical Branch omeprazole 2021-11 Yes [id number] 40mg Take 1 [facility] 40 mg 0-05 capsule by ity of capsule 00:00: mouth in [place] the morning. Branch potassium 2021-11 Yes [id number] 10meq Take 1 [facility] chloride 10 0-05 02 tablet by ity of mEq CR 00:00: mouth [place] tablet 00 every Medical Saturday, Branch Saturday and Saturday. rosuvastati 2021-11 Yes [id number] 20mg Take 1 [facility] n 20 mg 0-05 tablet by ity of tablet 00:00: mouth in [place] the morning. Branch carvediloL 2021-11 Yes [id number] 25mg Take 1 [facility] 25 mg 0-05 02 tablet by ity of tablet 00:00: mouth in [place] the morning Branch and 1 tablet in the evening. pioglitazon 2021-11 Yes [id number] 15mg Take 1 [facility] e 15 mg 0-05 tablet by it[facility] of tablet 00:00: mouth in [place] the morning. Branch gabapentin 2021-11 Yes [id number] 600mg Take 1 [facility] 600 mg 0-05 tablet by ity of tablet 00:00: mouth in [place] the morning Branch and 1 tablet at noon and 1 tablet in the evening. DULoxetine 2021-11 Yes [id number] 60mg Take 1 [facility] 60 mg 0-05 capsule by it[facility] of capsule 00:00: mouth in [place] the morning Branch and 1 capsule in the evening. hydrALAZINE 2021-11 Yes [id number] 50mg Take 1 [facility] 50 mg 0-05 tablet by it[facility] of tablet 00:00: mouth in [place] the morning Branch and 1 tablet in the evening. furosemide 2021-11 Yes [id number] Take lasix [facility] (LASIX) 40 0-05 02 40 mg BID ity of mg tablet 00:00: [place] 00 [facility] omeprazole 2021-11 Yes [id number] 40mg Take 1 [facility] 40 mg 0-05 capsule by ity of capsule 00:00: mouth in [place] the morning. Branch potassium 2021-11 Yes [id number] 10meq Take 1 [facility] chloride 10 0-05 02 tablet by ity of mEq CR 00:00: mouth [place] tablet 00 every Medical Saturday, Branch Saturday and Saturday. rosuvastati 2021-11 Yes [id number] 20mg Take 1 [facility] n 20 mg 0-05 tablet by ity of tablet 00:00: mouth in [place] 00 the morning. Branch carvediloL 2021-11 Yes [id number] 25mg Take 1 [facility] 25 mg 0-05 02 tablet by ity of tablet 00:00: mouth in [place] 00 the Medical morning Branch and 1 tablet in the evening. pioglitazon 2021-11 Yes [id number] 15mg Take 1 [facility] e 15 mg 0-05 tablet by ity of tablet 00:00: mouth in [place] 00 the morning. Branch gabapentin 2021-11 Yes [id number] 600mg Take 1 [facility] 600 mg 0-05 tablet by ity of tablet 00:00: mouth in [place] 00 the morning Branch and 1 tablet at noon and 1 tablet in the evening. DULoxetine 2021-11 Yes [id number] 60mg Take 1 [facility] 60 mg 0-05 capsule by ity of capsule 00:00: mouth in [place] 00 the Medical morning Branch and 1 capsule in the evening. hydrALAZINE 2021-11 Yes [id number] 50mg Take 1 [facility] 50 mg 0-05 tablet by ity of tablet 00:00: mouth in [place] the Medical morning Branch and 1 tablet in the evening. furosemide 2021-11 Yes [id number] Take lasix [facility] (LASIX) 40 0-05 02 40 mg BID ity of mg tablet 00:00: [place] 00 Medical Branch omeprazole 2021-11 Yes [id number] 40mg Take 1 [facility] 40 mg 0-05 capsule by ity of capsule 00:00: mouth in [place] the morning. Branch potassium 2021-11 Yes [id number] 10meq Take 1 [facility] chloride 10 0-05 02 tablet by ity of mEq CR 00:00: mouth [place] tablet 00 every Medical Saturday, Branch Saturday and Saturday. rosuvastati 2021-11 Yes [id number] 20mg Take 1 [facility] n 20 mg 0-05 tablet by ity of tablet 00:00: mouth in [place] 00 the morning. Branch carvediloL 2021-11 Yes [id number] 25mg Take 1 [facility] 25 mg 0-05 02 tablet by ity of tablet 00:00: mouth in [place] 00 the Medical morning Branch and 1 tablet in the evening. pioglitazon 2021-11 Yes [id number] 15mg Take 1 [facility] e 15 mg 0-05 tablet by ity of tablet 00:00: mouth in [place] the morning. Branch gabapentin 2021-11 Yes [id number] 600mg Take 1 [facility] 600 mg 0-05 tablet by ity of tablet 00:00: mouth in [place] 00 the Medical morning Branch and 1 tablet at noon and 1 tablet in the evening. DULoxetine 2021-11 Yes [id number] 60mg Take 1 [facility] 60 mg 0-05 capsule by ity of capsule 00:00: mouth in [place] 00 the morning Branch and 1 capsule in the evening. hydrALAZINE 2021-11 Yes [id number] 50mg Take 1 [facility] 50 mg 0-05 tablet by ity of tablet 00:00: mouth in [place] the morning Branch and 1 tablet in the evening. furosemide 2021-11 Yes [id number] Take lasix [facility] (LASIX) 40 0-05 02 40 mg BID ity of mg tablet 00:00: [place] 00 [facility] omeprazole 2021-11 Yes [id number] 40mg Take 1 [facility] 40 mg 0-05 capsule by ity of capsule 00:00: mouth in [place] the morning. Branch potassium 2021-11 Yes [id number] 10meq Take 1 [facility] chloride 10 0-05 02 tablet by ity of mEq CR 00:00: mouth [place] tablet 00 every Medical Saturday, Branch Saturday and Saturday. rosuvastati 2021-11 Yes [id number] 20mg Take 1 [facility] n 20 mg 0-05 tablet by ity of tablet 00:00: mouth in [place] the morning. Branch carvediloL 2021-11 Yes [id number] 25mg Take 1 [facility] 25 mg 0-05 02 tablet by ity of tablet 00:00: mouth in [place] the Medical morning Branch and 1 tablet in the evening. pioglitazon 2021-11 Yes [id number] 15mg Take 1 [facility] e 15 mg 0-05 tablet by ity of tablet 00:00: mouth in [place] the morning. Branch gabapentin 2021-11 Yes [id number] 600mg Take 1 [facility] 600 mg 0-05 tablet by ity of tablet 00:00: mouth in [place] 00 the Medical morning Branch and 1 tablet at noon and 1 tablet in the evening. DULoxetine 2021-11 Yes [id number] 60mg Take 1 [facility] 60 mg 0-05 capsule by ity of capsule 00:00: mouth in [place] 00 the Medical morning Branch and 1 capsule in the evening. hydrALAZINE 2021-11 Yes [id number] 50mg Take 1 [facility] 50 mg 0-05 tablet by ity of tablet 00:00: mouth in [place] 00 the Medical morning Branch and 1 tablet in the evening. furosemide 2021-11 Yes [id number] Take lasix [facility] (LASIX) 40 0-05 02 40 mg BID ity of mg tablet 00:00: [place] 00 [facility] omeprazole 2021-11 Yes [id number] 40mg Take 1 [facility] 40 mg 0-05 capsule by ity of capsule 00:00: mouth in [place] 00 the morning. Branch potassium 2021-11 Yes [id number] 10meq Take 1 [facility] chloride 10 0-05 02 tablet by ity of mEq CR 00:00: mouth [place] tablet 00 every Medical Saturday, Branch Saturday and Saturday. rosuvastati 2021-11 Yes [id number] 20mg Take 1 [facility] n 20 mg 0-05 tablet by ity of tablet 00:00: mouth in [place] 00 the morning. Branch carvediloL 2021-11 Yes [id number] 25mg Take 1 [facility] 25 mg 0-05 02 tablet by ity of tablet 00:00: mouth in [place] 00 the Medical morning Branch and 1 tablet in the evening. pioglitazon 2021-11 Yes [id number] 15mg Take 1 [facility] e 15 mg 0-05 tablet by ity of tablet 00:00: mouth in [place] the morning. Branch gabapentin 2021-11 Yes [id number] 600mg Take 1 [facility] 600 mg 0-05 tablet by ity of tablet 00:00: mouth in [place] 00 the Medical morning Branch and 1 tablet at noon and 1 tablet in the evening. DULoxetine 2021-11 Yes [id number] 60mg Take 1 [facility] 60 mg 0-05 capsule by ity of capsule 00:00: mouth in [place] [address] the Medical morning Branch and 1 capsule in the evening. hydrALAZINE 2021-11 Yes [id number] 50mg Take 1 [facility] 50 mg 0-05 tablet by ity of tablet 00:00: mouth in [place] 00 the Medical morning Branch and 1 tablet in the evening. furosemide 2021-11 Yes [id number] Take lasix [facility] (LASIX) 40 0-05 02 40 mg BID ity of mg tablet 00:00: [place] 00 Medical Branch omeprazole 2021-11 Yes [id number] 40mg Take 1 [facility] 40 mg 0-05 capsule by ity of capsule 00:00: mouth in [place] the morning. Branch potassium 2021-11 Yes [id number] 10meq Take 1 [facility] chloride 10 0-05 02 tablet by ity of mEq CR 00:00: mouth [place] tablet 00 every Medical Saturday, Branch Saturday and Saturday. rosuvastati 2021-11 Yes [id number] 20mg Take 1 [facility] n 20 mg 0-05 tablet by ity of tablet 00:00: mouth in [place] the morning. Branch carvediloL 2021-11 Yes [id number] 25mg Take 1 [facility] 25 mg 0-05 02 tablet by ity of tablet 00:00: mouth in [place] the Medical morning Branch and 1 tablet in the evening. pioglitazon 2021-11 Yes [id number] 15mg Take 1 [facility] e 15 mg 0-05 tablet by ity of tablet 00:00: mouth in [place] the morning. Branch gabapentin 2021-11 Yes [id number] 600mg Take 1 [facility] 600 mg 0-05 tablet by ity of tablet 00:00: mouth in [place] the Medical morning Branch and 1 tablet at noon and 1 tablet in the evening. DULoxetine 2021-11 Yes [id number] 60mg Take 1 [facility] 60 mg 0-05 capsule by ity of capsule 00:00: mouth in [place] the Medical morning Branch and 1 capsule in the evening. hydrALAZINE 2021-11 Yes [id number] 50mg Take 1 [facility] 50 mg 0-05 tablet by ity of tablet 00:00: mouth in [place] the Medical morning Branch and 1 tablet in the evening. furosemide 2021-11 Yes [id number] Take lasix [facility] (LASIX) 40 0-05 02 40 mg BID ity of mg tablet 00:00: [place] 00 Medical Branch omeprazole 2021-11 Yes [id number] 40mg Take 1 [facility] 40 mg 0-05 capsule by ity of capsule 00:00: mouth in [place] the Medical morning. Branch potassium 2021-11 Yes [id number] 10meq Take 1 [facility] chloride 10 0-05 02 tablet by ity of mEq CR 00:00: mouth [place] tablet 00 every Medical Saturday, Branch Saturday and Saturday. rosuvastati 2021-11 Yes [id number] 20mg Take 1 [facility] n 20 mg 0-05 tablet by ity of tablet 00:00: mouth in [place] the morning. Branch carvediloL 2021-11 Yes [id number] 25mg Take 1 [facility] 25 mg 0-05 02 tablet by ity of tablet 00:00: mouth in [place] 00 the Medical morning Branch and 1 tablet in the evening. pioglitazon 2021-11 Yes [id number] 15mg Take 1 [facility] e 15 mg 0-05 tablet by ity of tablet 00:00: mouth in [place] the morning. Branch gabapentin 2021-11 Yes [id number] 600mg Take 1 [facility] 600 mg 0-05 tablet by ity of tablet 00:00: mouth in [place] the Medical morning Branch and 1 tablet at noon and 1 tablet in the evening. DULoxetine 2021-11 Yes [id number] 60mg Take 1 [facility] 60 mg 0-05 capsule by ity of capsule 00:00: mouth in [place] the Medical morning Branch and 1 capsule in the evening. hydrALAZINE 2021-11 Yes [id number] 50mg Take 1 [facility] 50 mg 0-05 tablet by ity of tablet 00:00: mouth in [place] the Medical morning Branch and 1 tablet in the evening. furosemide 2021-11 Yes [id number] Take lasix [facility] (LASIX) 40 0-05 02 40 mg BID ity of mg tablet 00:00: [place] 00 Medical Branch omeprazole 2021-11 Yes [id number] 40mg Take 1 [facility] 40 mg 0-05 capsule by ity of capsule 00:00: mouth in [place] 00 the morning. Branch potassium 2021-11 Yes [id number] 10meq Take 1 [facility] chloride 10 0-05 02 tablet by ity of mEq CR 00:00: mouth [place] tablet 00 every Medical Saturday, Branch Saturday and Saturday. rosuvastati 2021-11 Yes [id number] 20mg Take 1 [facility] n 20 mg 0-05 tablet by ity of tablet 00:00: mouth in [place] 00 the Medical morning. Branch carvediloL 2021-11 Yes [id number] 25mg Take 1 [facility] 25 mg 0-05 02 tablet by ity of tablet 00:00: mouth in [place] the morning Branch and 1 tablet in the evening. pioglitazon 2021-11 Yes [id number] 15mg Take 1 [facility] e 15 mg 0-05 tablet by ity of tablet 00:00: mouth in [place] the morning. Branch gabapentin 2021-11 Yes [id number] 600mg Take 1 [facility] 600 mg 0-05 tablet by ity of tablet 00:00: mouth in [place] the morning Branch and 1 tablet at noon and 1 tablet in the evening. DULoxetine 2021-11 Yes [id number] 60mg Take 1 [facility] 60 mg 0-05 capsule by ity of capsule 00:00: mouth in [place] [address] the morning Branch and 1 capsule in the evening. hydrALAZINE 2021-11 Yes [id number] 50mg Take 1 [facility] 50 mg 0-05 tablet by ity of tablet 00:00: mouth in [place] the morning Branch and 1 tablet in the evening. furosemide 2021-11 Yes [id number] Take lasix [facility] (LASIX) 40 0-05 02 40 mg BID ity of mg tablet 00:00: [address] omeprazole 2021-11 Yes [id number] 40mg Take 1 [facility] 40 mg 0-05 capsule by ity of capsule 00:00: mouth in [place] the . Branch potassium 2021-11 Yes [id number] 10meq Take 1 [facility] chloride 10 0-05 02 tablet by ity of mEq CR 00:00: mouth [place] tablet 00 every Medical Saturday, Branch Saturday and Saturday. rosuvastati 2021-11 Yes [id number] 20mg Take 1 [facility] n 20 mg 0-05 tablet by ity of tablet 00:00: mouth in [place] 00 the morning. Branch carvediloL 2021-11 Yes [id number] 25mg Take 1 [facility] 25 mg 0-05 02 tablet by ity of tablet 00:00: mouth in [place] [address] the morning Branch and 1 tablet in the evening. pioglitazon 2021-11 Yes [id number] 15mg Take 1 [facility] e 15 mg 0-05 tablet by ity of tablet 00:00: mouth in [place] the Medical morning. Branch hydrALAZINE 2021-11 Yes [id number] 50mg Take 1 [facility] 50 mg 0-05 tablet by [facility]y of tablet 00:00: mouth in [place] the Medical morning Branch and 1 tablet in the evening. omeprazole 2021-11 Yes [id number] 40mg Take 1 [facility] 40 mg 0-05 capsule by ity of capsule 00:00: mouth in [place] the Medical morning. Branch rosuvastati 2021-11 Yes [id number] 20mg Take 1 [facility] n 20 mg 0-05 tablet by [facility]y of tablet 00:00: mouth in [place] the Medical morning. Branch carvediloL 2021-11 Yes [id number] 25mg Take 1 [facility] 25 mg 0-05 02 tablet by [facility] tablet 00:00: mouth in [place] the Medical morning Branch and 1 tablet in the evening. hydrALAZINE 2021-11 Yes [id number] 50mg Take 1 [facility] 50 mg 0-05 tablet by [facility] tablet 00:00: mouth in [place] the morning Branch and 1 tablet in the evening. omeprazole 2021-11 Yes [id number] 40mg Take 1 [facility] 40 mg 0-05 capsule by [facility] capsule 00:00: mouth in [place] the morning. Branch rosuvastati 2021-11 Yes [id number] 20mg Take 1 [facility] n 20 mg 0-05 tablet by [facility] of tablet 00:00: mouth in [place] the Medical morning. Branch carvediloL 2021-11 Yes [id number] 25mg Take 1 [facility] 25 mg 0-05 02 tablet by [facility] tablet 00:00: mouth in [place] the Medical morning Branch and 1 tablet in the evening. hydrALAZINE 2021-11 Yes [id number] 50mg Take 1 [facility] 50 mg 0-05 tablet by [facility] tablet 00:00: mouth in [place] the Medical morning Branch and 1 tablet in the evening. omeprazole 2021-11 Yes [id number] 40mg Take 1 [facility] 40 mg 0-05 capsule by [facility] capsule 00:00: mouth in [place] the Medical morning. Branch rosuvastati 2021-11 Yes [id number] 20mg Take 1 [facility] n 20 mg 0-05 tablet by [facility] of tablet 00:00: mouth in [place] 00 the Medical morning. Branch carvediloL 2021-11 Yes [id number] 25mg Take 1 [facility] 25 mg 0-05 02 tablet by [facility] of tablet 00:00: mouth in [place] the Medical morning Branch and 1 tablet in the evening. hydrALAZINE 2021-11 Yes [id number] 50mg Take 1 [facility] 50 mg 0-05 tablet by [facility] tablet 00:00: mouth in [place] the Medical morning Branch and 1 tablet in the evening. omeprazole 2021-11 Yes [id number] 40mg Take 1 [facility] 40 mg 0-05 capsule by [facility] capsule 00:00: mouth in [place] the Medical morning. Branch rosuvastati 2021-11 Yes [id number] 20mg Take 1 [facility] n 20 mg 0-05 tablet by [facility] of tablet 00:00: mouth in [place] the Medical morning. Branch carvediloL 2021-11 Yes [id number] 25mg Take 1 [facility] 25 mg 0-05 02 tablet by [facility] of tablet 00:00: mouth in [place] the Medical morning Branch and 1 tablet in the evening. hydrALAZINE 2021-11 Yes [id number] 50mg Take 1 [facility] 50 mg 0-05 tablet by [facility] tablet 00:00: mouth in [place] the Medical morning Branch and 1 tablet in the evening. omeprazole 2021-11 Yes [id number] 40mg Take 1 [facility] 40 mg 0-05 capsule by [facility] capsule 00:00: mouth in [place] the morning. Branch rosuvastati 2021-11 Yes [id number] 20mg Take 1 [facility] n 20 mg 0-05 tablet by [facility] of tablet 00:00: mouth in [place] the morning. Branch carvediloL 2021-11 Yes [id number] 25mg Take 1 [facility] 25 mg 0-05 02 tablet by [facility] of tablet 00:00: mouth in [place] the Medical morning Branch and 1 tablet in the evening. hydrALAZINE 2021-11 Yes [id number] 50mg Take 1 [facility] 50 mg 0-05 tablet by [facility] tablet 00:00: mouth in [place] the Medical morning Branch and 1 tablet in the evening. omeprazole 2021-11 Yes [id number] 40mg Take 1 [facility] 40 mg 0-05 capsule by [facility] capsule 00:00: mouth in [place] the Medical morning. Branch rosuvastati 2021-11 Yes [id number] 20mg Take 1 [facility] n 20 mg 0-05 tablet by [facility] of tablet 00:00: mouth in [place] the morning. Branch carvediloL 2021-11 Yes [id number] 25mg Take 1 [facility] 25 mg 0-05 02 tablet by [facility] of tablet 00:00: mouth in [place] the Medical morning Branch and 1 tablet in the evening. hydrALAZINE 2021-11 Yes [id number] 50mg Take 1 [facility] 50 mg 0-05 tablet by [facility] tablet 00:00: mouth in [place] the Medical morning Branch and 1 tablet in the evening. omeprazole 2021-11 Yes [id number] 40mg Take 1 [facility] 40 mg 0-05 capsule by [facility] of capsule 00:00: mouth in [place] the morning. Branch rosuvastati 2021-11 Yes [id number] 20mg Take 1 [facility] n 20 mg 0-05 tablet by [facility] of tablet 00:00: mouth in [place] the morning. Branch carvediloL 2021-11 Yes [id number] 25mg Take 1 [facility] 25 mg 0-05 02 tablet by [facility] of tablet 00:00: mouth in [place] the Medical morning Branch and 1 tablet in the evening. hydrALAZINE 2021-11 Yes [id number] 50mg Take 1 [facility] 50 mg 0-05 tablet by [facility] of tablet 00:00: mouth in [place] the Medical morning Branch and 1 tablet in the evening. omeprazole 2021-11 Yes [id number] 40mg Take 1 [facility] 40 mg 0-05 capsule by [facility] capsule 00:00: mouth in [place] the morning. Branch rosuvastati 2021-11 Yes [id number] 20mg Take 1 [facility] n 20 mg 0-05 tablet by [facility] of tablet 00:00: mouth in [place] the morning. Branch carvediloL 2021-11 Yes [id number] 25mg Take 1 [facility] 25 mg 0-05 02 tablet by [facility] of tablet 00:00: mouth in [place] the Medical morning Branch and 1 tablet in the evening. hydrALAZINE 2021-11 Yes [id number] 50mg Take 1 [facility] 50 mg 0-05 tablet by [facility] tablet 00:00: mouth in [place] the Medical morning Branch and 1 tablet in the evening. omeprazole 2021-11 Yes [id number] 40mg Take 1 [facility] 40 mg 0-05 capsule by [facility] capsule 00:00: mouth in [place] the Medical morning. Branch rosuvastati 2021-11 Yes [id number] 20mg Take 1 [facility] n 20 mg 0-05 tablet by [facility] of tablet 00:00: mouth in [place] the Medical morning. Branch carvediloL 2021-11 Yes [id number] 25mg Take 1 [facility] 25 mg 0-05 02 tablet by [facility] tablet 00:00: mouth in [place] the Medical morning Branch and 1 tablet in the evening. hydrALAZINE 2021-11 Yes [id number] 50mg Take 1 [facility] 50 mg 0-05 tablet by [facility] tablet 00:00: mouth in [place] the Medical morning Branch and 1 tablet in the evening. omeprazole 2021-11 Yes [id number] 40mg Take 1 [facility] 40 mg 0-05 capsule by [facility] capsule 00:00: mouth in [place] the Medical morning. Branch rosuvastati 2021-11 Yes [id number] 20mg Take 1 [facility] n 20 mg 0-05 tablet by [facility] of tablet 00:00: mouth in [place] the Medical morning. Branch carvediloL 2021-11 Yes [id number] 25mg Take 1 [facility] 25 mg 0-05 02 tablet by [facility] tablet 00:00: mouth in [place] the Medical morning Branch and 1 tablet in the evening. hydrALAZINE 2021-11 Yes [id number] 50mg Take 1 [facility] 50 mg 0-05 tablet by [facility] tablet 00:00: mouth in [place] the Medical morning Branch and 1 tablet in the evening. omeprazole 2021-11 Yes [id number] 40mg Take 1 [facility] 40 mg 0-05 capsule by [facility] capsule 00:00: mouth in [place] the Medical morning. Branch rosuvastati 2021-11 Yes [id number] 20mg Take 1 [facility] n 20 mg 0-05 tablet by [facility] of tablet 00:00: mouth in [place] the Medical morning. Branch carvediloL 2021-11 Yes [id number] 25mg Take 1 [facility] 25 mg 0-05 02 tablet by [facility] of tablet 00:00: mouth in [place] the Medical morning Branch and 1 tablet in the evening. hydrALAZINE 2021-11 Yes [id number] 50mg Take 1 [facility] 50 mg 0-05 tablet by [facility] tablet 00:00: mouth in [place] 00 the Medical morning Branch and 1 tablet in the evening. omeprazole 2021-11 Yes [id number] 40mg Take 1 [facility] 40 mg 0-05 capsule by [facility] capsule 00:00: mouth in [place] the Medical morning. Branch rosuvastati 2021-11 Yes [id number] 20mg Take 1 [facility] n 20 mg 0-05 tablet by [facility] tablet 00:00: mouth in [place] the Medical morning. Branch carvediloL 2021-11 Yes [id number] 25mg Take 1 [facility] 25 mg 0-05 02 tablet by [facility] tablet 00:00: mouth in [place] the Medical morning Branch and 1 tablet in the evening. hydrALAZINE 2021-11 Yes [id number] 50mg Take 1 [facility] 50 mg 0-05 tablet by [facility] tablet 00:00: mouth in [place] the Medical morning Branch and 1 tablet in the evening. omeprazole 2021-11 Yes [id number] 40mg Take 1 [facility] 40 mg 0-05 capsule by [facility] capsule 00:00: mouth in [place] the Medical morning. Branch rosuvastati 2021-11 Yes [id number] 20mg Take 1 [facility] n 20 mg 0-05 tablet by [facility] tablet 00:00: mouth in [place] the Medical morning. Branch carvediloL 2021-11 Yes [id number] 25mg Take 1 [facility] 25 mg 0-05 02 tablet by [facility] of tablet 00:00: mouth in [place] the Medical morning Branch and 1 tablet in the evening. hydrALAZINE 2021-11 Yes [id number] 50mg Take 1 [facility] 50 mg 0-05 tablet by [facility] of tablet 00:00: mouth in [place] 00 the Medical morning Branch and 1 tablet in the evening. omeprazole 2021-11 Yes [id number] 40mg Take 1 [facility] 40 mg 0-05 capsule by [facility] of capsule 00:00: mouth in [place] the Medical morning. Branch rosuvastati 2021-11 Yes [id number] 20mg Take 1 [facility] n 20 mg 0-05 tablet by [facility] of tablet 00:00: mouth in [place] 00 the Medical morning. Branch carvediloL 2021-11 Yes [id number] 25mg Take 1 [facility] 25 mg 0-05 02 tablet by [facility] of tablet 00:00: mouth in [place] the Medical morning Branch and 1 tablet in the evening. hydrALAZINE 2021-11 Yes [id number] 50mg Take 1 [facility] 50 mg 0-05 tablet by [facility] of tablet 00:00: mouth in [place] the Medical morning Branch and 1 tablet in the evening. omeprazole 2021-11 Yes [id number] 40mg Take 1 [facility] 40 mg 0-05 capsule by [facility] capsule 00:00: mouth in [place] the morning. Branch rosuvastati 2021-11 Yes [id number] 20mg Take 1 [facility] n 20 mg 0-05 tablet by [facility] tablet 00:00: mouth in [place] the morning. Branch carvediloL 2021-11 Yes [id number] 25mg Take 1 [facility] 25 mg 0-05 02 tablet by [facility] tablet 00:00: mouth in [place] the Medical morning Branch and 1 tablet in the evening. hydrALAZINE 2021-11 Yes [id number] 50mg Take 1 [facility] 50 mg 0-05 tablet by [facility] of tablet 00:00: mouth in [place] the Medical morning Branch and 1 tablet in the evening. omeprazole 2021-11 Yes [id number] 40mg Take 1 [facility] 40 mg 0-05 capsule by [facility] of capsule 00:00: mouth in [place] the morning. Branch rosuvastati 2021-11 Yes [id number] 20mg Take 1 [facility] n 20 mg 0-05 tablet by [facility] tablet 00:00: mouth in [place] the morning. Branch carvediloL 2021-11 Yes [id number] 25mg Take 1 [facility] 25 mg 0-05 02 tablet by [facility] of tablet 00:00: mouth in [place] the Medical morning Branch and 1 tablet in the evening. hydrALAZINE 2021-11 Yes [id number] 50mg Take 1 [facility] 50 mg 0-05 tablet by [facility] of tablet 00:00: mouth in [place] the morning Branch and 1 tablet in the evening. omeprazole 2021-11 Yes [id number] 40mg Take 1 [facility] 40 mg 0-05 capsule by [facility] of capsule 00:00: mouth in [place] the morning. Branch rosuvastati 2021-11 Yes [id number] 20mg Take 1 [facility] n 20 mg 0-05 tablet by [facility] of tablet 00:00: mouth in [place] the morning. Branch carvediloL 2021-11 Yes [id number] 25mg Take 1 [facility] 25 mg 0-05 02 tablet by [facility] of tablet 00:00: mouth in [place] the Medical morning Branch and 1 tablet in the evening. hydrALAZINE 2021-11 Yes [id number] 50mg Take 1 [facility] 50 mg 0-05 tablet by [facility] of tablet 00:00: mouth in [place] the morning Branch and 1 tablet in the evening. omeprazole 2021-11 Yes [id number] 40mg Take 1 [facility] 40 mg 0-05 capsule by [facility] of capsule 00:00: mouth in [place] the morning. Branch rosuvastati 2021-11 Yes [id number] 20mg Take 1 [facility] n 20 mg 0-05 tablet by [facility] of tablet 00:00: mouth in [place] the morning. Branch carvediloL 2021-11 Yes [id number] 25mg Take 1 [facility] 25 mg 0-05 02 tablet by [facility] of tablet 00:00: mouth in [place] the Medical morning Branch and 1 tablet in the evening. hydrALAZINE 2021-11 Yes [id number] 50mg Take 1 [facility] 50 mg 0-05 tablet by [facility] of tablet 00:00: mouth in [place] the morning Branch and 1 tablet in the evening. omeprazole 2021-11 Yes [id number] 40mg Take 1 [facility] 40 mg 0-05 capsule by [facility] of capsule 00:00: mouth in [place] the morning. Branch rosuvastati 2021-11 Yes [id number] 20mg Take 1 [facility] n 20 mg 0-05 tablet by [facility] of tablet 00:00: mouth in [place] the morning. Branch carvediloL 2021-11 Yes [id number] 25mg Take 1 [facility] 25 mg 0-05 02 tablet by [facility] of tablet 00:00: mouth in [place] the morning Branch and 1 tablet in the evening. hydrALAZINE 2021-11 Yes [id number] 50mg Take 1 [facility] 50 mg 0-05 tablet by [facility] of tablet 00:00: mouth in [place] the morning Branch and 1 tablet in the evening. omeprazole 2021-11 Yes [id number] 40mg Take 1 [facility] 40 mg 0-05 capsule by [facility] of capsule 00:00: mouth in [place] the morning. Branch rosuvastati 2021-11 Yes [id number] 20mg Take 1 [facility] n 20 mg 0-05 tablet by [facility] of tablet 00:00: mouth in [place] the morning. Branch carvediloL 2021-11 Yes [id number] 25mg Take 1 [facility] 25 mg 0-05 02 tablet by [facility] of tablet 00:00: mouth in [place] the Medical morning Branch and 1 tablet in the evening. hydrALAZINE 2021-11 Yes [id number] 50mg Take 1 [facility] 50 mg 0-05 tablet by [facility] of tablet 00:00: mouth in [place] the Medical morning Branch and 1 tablet in the evening. omeprazole 2021-11 Yes [id number] 40mg Take 1 [facility] 40 mg 0-05 capsule by [facility] of capsule 00:00: mouth in [place] the morning. Branch rosuvastati 2021-11 Yes [id number] 20mg Take 1 [facility] n 20 mg 0-05 tablet by [facility] of tablet 00:00: mouth in [place] the morning. Branch carvediloL 2021-11 Yes [id number] 25mg Take 1 [facility] 25 mg 0-05 02 tablet by [facility] of tablet 00:00: mouth in [place] the morning Branch and 1 tablet in the evening. hydrALAZINE 2021-11 Yes [id number] 50mg Take 1 [facility] 50 mg 0-05 tablet by [facility] of tablet 00:00: mouth in [place] the Medical morning Branch and 1 tablet in the evening. omeprazole 2021-11 Yes [id number] 40mg Take 1 [facility] 40 mg 0-05 capsule by [facility] of capsule 00:00: mouth in [place] the morning. Branch rosuvastati 2021-11 Yes [id number] 20mg Take 1 [facility] n 20 mg 0-05 tablet by [facility] of tablet 00:00: mouth in [place] the morning. Branch carvediloL 2021-11 Yes [id number] 25mg Take 1 [facility] 25 mg 0-05 02 tablet by [facility] of tablet 00:00: mouth in [place] the Medical morning Branch and 1 tablet in the evening. hydrALAZINE 2021-11 Yes [id number] 50mg Take 1 [facility] 50 mg 0-05 tablet by [facility] of tablet 00:00: mouth in [place] 00 the Medical morning Branch and 1 tablet in the evening. omeprazole 2021-11 Yes [id number] 40mg Take 1 [facility] 40 mg 0-05 capsule by [facility] of capsule 00:00: mouth in [place] 00 the Medical morning. Branch rosuvastati 2021-11 Yes [id number] 20mg Take 1 [facility] n 20 mg 0-05 tablet by [facility] of tablet 00:00: mouth in [place] 00 the Medical morning. Branch carvediloL 2021-11 Yes [id number] 25mg Take 1 [facility] 25 mg 0-05 02 tablet by [facility] of tablet 00:00: mouth in [place] 00 the Medical morning Branch and 1 tablet in the evening. hydrALAZINE 2021-11 Yes [id number] 50mg Take 1 [facility] 50 mg 0-05 tablet by [facility] of tablet 00:00: mouth in [place] 00 the Medical morning Branch and 1 tablet in the evening. omeprazole 2021-11 Yes [id number] 40mg Take 1 [facility] 40 mg 0-05 capsule by [facility] of capsule 00:00: mouth in [place] 00 the Medical morning. Branch rosuvastati 2021-11 Yes [id number] 20mg Take 1 [facility] n 20 mg 0-05 tablet by [facility] of tablet 00:00: mouth in [place] 00 the Medical morning. Branch carvediloL 2021-11 Yes [id number] 25mg Take 1 [facility] 25 mg 0-05 02 tablet by [facility] of tablet 00:00: mouth in [place] 00 the Medical morning Branch and 1 tablet in the evening. gabapentin 2021-11- No [id number] 600mg Take 1 [facility] 600 mg 0-05 05-09 tablet by [facility] of tablet 00:00: 00:00 mouth in [place] 00 :00 the Medical morning Branch and 1 tablet at noon and 1 tablet in the evening. DULoxetine 2021-11- No [id number] 60mg Take 1 [facility] 60 mg 0-05 05-09 capsule by [facility] of capsule 00:00: 00:00 mouth in [place] 00 :00 the Medical morning Branch and 1 capsule in the evening. furosemide 2021-11- No [id number] Take lasix [facility] (LASIX) 40 0-05 05-09 02 40 mg BID it[facility] of mg tablet 00:00: 00:00 [place] 00 :00 Medical Branch potassium 2021-2022- No [id number] 10meq Take 1 [facility] chloride 10 0-05 05-09 02 tablet by it y of mEq CR 00:00: 00:00 mouth [place] tablet 00 :00 every Medical Saturday, Branch Saturday and Saturday. pioglitazon 2021-11- No [id number] 15mg Take 1 [facility] e 15 mg 0-05 05-09 tablet by [facility] of tablet 00:00: 00:00 mouth in [place] 00 :00 the Medical morning. Branch gabapentin 2021-11- No [id number] 600mg Take 1 [facility] 600 mg 0-05 05-09 tablet by [facility] of tablet 00:00: 00:00 mouth in [place] 00 :00 the Medical morning Branch and 1 tablet at noon and 1 tablet in the evening. DULoxetine 2021-11- No [id number] 60mg Take 1 [facility] 60 mg 0-05 05-09 capsule by [facility] of capsule 00:00: 00:00 mouth in [place] 00 :00 the Medical morning Branch and 1 capsule in the evening. furosemide 2021-11- No [id number] Take lasix [facility] (LASIX) 40 0-05 05-09 02 40 mg BID ity of mg tablet 00:00: 00:00 [place] 00 :00 [facility] potassium 2021-11- No [id number] 10meq Take 1 [facility] chloride 10 0-05 05-09 02 tablet by it y of mEq CR 00:00: 00:00 mouth [place] tablet 00 :00 every Medical Saturday, Branch Saturday and Saturday. pioglitazon 2021-11- No [id number] 15mg Take 1 [facility] e 15 mg 0-05 05-09 tablet by ity of tablet 00:00: 00:00 mouth in [place] 00 :00 the Medical morning. Branch gabapentin 2021-11- No [id number] 600mg Take 1 [facility] 600 mg 0-05 05-09 tablet by it[facility] of tablet 00:00: 00:00 mouth in [place] 00 :00 the Medical morning Branch and 1 tablet at noon and 1 tablet in the evening. DULoxetine 2021-11- No [id number] 60mg Take 1 [facility] 60 mg 0-05 05-09 capsule by it[facility] of capsule 00:00: 00:00 mouth in [place] 00 :00 the Medical morning Branch and 1 capsule in the evening. furosemide 2021-11- No [id number] Take lasix [facility] (LASIX) 40 0-05 05-09 02 40 mg BID ity of mg tablet 00:00: 00:00 [place] 00 :00 Medical Branch potassium 2021-2022- No [id number] 10meq Take 1 [facility] chloride 10 0-05 05-09 02 tablet by it y of mEq CR 00:00: 00:00 mouth [place] tablet 00 :00 every Medical Saturday, Branch Saturday and Saturday. pioglitazon 2021-11- No [id number] 15mg Take 1 [facility] e 15 mg 0-05 05-09 tablet by it[facility] of tablet 00:00: 00:00 mouth in [place] 00 :00 the Medical morning. Branch gabapentin 2021-11- No [id number] 600mg Take 1 [facility] 600 mg 0-05 05-09 tablet by it[facility] of tablet 00:00: 00:00 mouth in [place] 00 :00 the Medical morning Branch and 1 tablet at noon and 1 tablet in the evening. DULoxetine 2021-11- No [id number] 60mg Take 1 [facility] 60 mg 0-05 05-09 capsule by it[facility] of capsule 00:00: 00:00 mouth in [place] 00 :00 the Medical morning Branch and 1 capsule in the evening. furosemide 2021-11- No [id number] Take lasix [facility] (LASIX) 40 0-05 05-09 02 40 mg BID ity of mg tablet 00:00: 00:00 [place] 00 :00 Medical Branch potassium 2021-11- No [id number] 10meq Take 1 [facility] chloride 10 0-05 05-09 02 tablet by it y of mEq CR 00:00: 00:00 mouth [place] tablet 00 :00 every Medical Saturday, Branch Saturday and Saturday. pioglitazon 2021-11- No [id number] 15mg Take 1 [facility] e 15 mg 0-05 05-09 tablet by ity of tablet 00:00: 00:00 mouth in [place] 00 :00 the Medical morning. Branch gabapentin 2021-11- No [id number] 600mg Take 1 [facility] 600 mg 0-05 05-09 tablet by ity of tablet 00:00: 00:00 mouth in [place] 00 :00 the Medical morning Branch and 1 tablet at noon and 1 tablet in the evening. DULoxetine 2021-11- No [id number] 60mg Take 1 [facility] 60 mg 0-05 05-09 capsule by it[facility] of capsule 00:00: 00:00 mouth in [place] 00 :00 the Medical morning Branch and 1 capsule in the evening. furosemide 2021-11- No [id number] Take lasix [facility] (LASIX) 40 0-05 - 02 40 mg BID ity of mg tablet 00:00: 00:00 [place] 00 :00 Medical Branch potassium 2021-11- No [id number] 10meq Take 1 [facility] chloride 10 0-03 08- 02 tablet by it y of mEq CR 00:00: 00:00 mouth [place] tablet 00 :00 every Medical Saturday, Branch Saturday and Saturday. pioglitazon 2021-11- No [id number] 15mg Take 1 [facility] e 15 mg 0-05 -09 tablet by ity of tablet 00:00: 00:00 mouth in [place] 00 :00 the Medical morning. Branch metFORMIN 2021-11- No [id number] 500mg Take 1 [facility] 500 mg 0-05 -24 tablet by ity of tablet 00:00: 00:00 mouth in [place] 00 :00 the Medical morning Branch and 1 tablet in the evening. Take with meals. glimepiride 2021-11- No [id number] 2mg Take 1 [facility] 2 mg tablet 0-05 -24 tablet by it y of 00:00: 00:00 mouth in [place] 00 :00 the Medical morning Branch and 1 tablet in the evening. GABAPENTIN 2021-0 Yes [id number] TAKE 1 [facility] 600 mg 9-05 TABLET BY ity of tablet 00:00: MOUTH [address] Medical TIMES Branch DAILY ALLOPURINOL 2021-0 Yes [id number] 100mg TAKE 1 [facility] 100 mg 9-05 TABLET BY ity of tablet 00:00: MOUTH [place] 00 DAILY Medical Branch GABAPENTIN 2021-0 Yes [id number] TAKE 1 [facility] 600 mg 9-05 TABLET BY ity of tablet 00:00: MOUTH [address] Medical TIMES [place] DAILY ALLOPURINOL 2021-0 Yes [id number] 100mg TAKE 1 [facility] 100 mg 9-05 TABLET BY ity of tablet 00:00: [facility] DAILY Medical Branch ALLOPURINOL 2021-0 Yes [id number] 100mg TAKE 1 [facility] 100 mg 9-05 TABLET BY ity of tablet 00:00: DAILY Medical Branch ALLOPURINOL 2021-0 Yes [id number] 100mg TAKE 1 [facility] 100 mg 9-05 TABLET BY ity of tablet 00:00: DAILY Medical Branch ALLOPURINOL 2021-0 Yes [id number] 100mg TAKE 1 [facility] 100 mg 9-05 TABLET BY ity of tablet 00:00: [facility] DAILY Medical Branch ALLOPURINOL 2021-0 Yes [id number] 100mg TAKE 1 [facility] 100 mg 9-05 TABLET BY ity of tablet 00:00: [facility] DAILY Medical Branch ALLOPURINOL 2021-0 Yes [id number] 100mg TAKE 1 [facility] 100 mg 9-05 TABLET BY ity of tablet 00:00: [facility] DAILY Medical Branch ALLOPURINOL 2021-0 Yes [id number] 100mg TAKE 1 [facility] 100 mg 9-05 TABLET BY ity of tablet 00:00: [facility] DAILY Medical Branch ALLOPURINOL 2021-0 Yes [id number] 100mg TAKE 1 [facility] 100 mg 9-05 TABLET BY ity of tablet 00:00: [facility] DAILY Medical Branch ALLOPURINOL 2021-0 Yes [id number] 100mg TAKE 1 [facility] 100 mg 9-05 TABLET BY ity of tablet 00:00: [facility] DAILY Medical Branch ALLOPURINOL 2021-0 Yes [id number] 100mg TAKE 1 [facility] 100 mg 9-05 TABLET BY ity of tablet 00:00: [facility] DAILY Medical Branch ALLOPURINOL 2021-0 Yes [id number] 100mg TAKE 1 [facility] 100 mg 9-05 TABLET BY ity of tablet 00:00: [facility] DAILY Medical Branch ALLOPURINOL 2021-0 Yes [id number] 100mg TAKE 1 [facility] 100 mg 9-05 TABLET BY ity of tablet 00:00: [facility] DAILY Medical Branch ALLOPURINOL 2021-0 Yes [id number] 100mg TAKE 1 [facility] 100 mg 9-05 TABLET BY ity of tablet 00:00: [facility] DAILY Medical Branch ALLOPURINOL 2021-0 Yes [id number] 100mg TAKE 1 [facility] 100 mg 9-05 TABLET BY ity of tablet 00:00: [facility] DAILY Medical Branch ALLOPURINOL 2021-0 Yes [id number] 100mg TAKE 1 [facility] 100 mg 9-05 TABLET BY ity of tablet 00:00: DAILY Medical Branch ALLOPURINOL 2-0 Yes [id number] 100mg TAKE 1 [facility] 100 mg 9-05 TABLET BY ity of tablet 00:00: DAILY Medical Branch ALLOPURINOL 2021-0 Yes [id number] 100mg TAKE 1 [facility] 100 mg 9-05 TABLET BY ity of tablet 00:00: DAILY Medical Branch ALLOPURINOL 2021-0 Yes [id number] 100mg TAKE 1 [facility] 100 mg 9-05 TABLET BY ity of tablet 00:00: DAILY Medical Branch ALLOPURINOL 2021-0 Yes [id number] 100mg TAKE 1 [facility] 100 mg 9-05 TABLET BY ity of tablet 00:00: [facility] DAILY Medical Branch ALLOPURINOL 2021-0 Yes [id number] 100mg TAKE 1 [facility] 100 mg 9-05 TABLET BY ity of tablet 00:00: DAILY Medical Branch ALLOPURINOL 2021-0 Yes [id number] 100mg TAKE 1 [facility] 100 mg 9-05 TABLET BY ity of tablet 00:00: [facility] DAILY Medical Branch ALLOPURINOL 2021-0 Yes [id number] 100mg TAKE 1 [facility] 100 mg 9-05 TABLET BY ity of tablet 00:00: [facility] DAILY Medical Branch ALLOPURINOL 2-0 Yes [id number] 100mg TAKE 1 [facility] 100 mg 9-05 TABLET BY ity of tablet 00:00: [facility] DAILY Medical Branch ALLOPURINOL 2-0 Yes [id number] 100mg TAKE 1 [facility] 100 mg 9-05 TABLET BY ity of tablet 00:00: [facility] DAILY Medical Branch ALLOPURINOL 2-0 Yes [id number] 100mg TAKE 1 [facility] 100 mg 9-05 TABLET BY ity of tablet 00:00: [facility] DAILY Medical Branch ALLOPURINOL 2-0 Yes [id number] 100mg TAKE 1 [facility] 100 mg 9-05 TABLET BY ity of tablet 00:00: [facility] DAILY Medical Branch ALLOPURINOL 2-0 Yes [id number] 100mg TAKE 1 [facility] 100 mg 9-05 TABLET BY ity of tablet 00:00: [facility] DAILY Medical Branch ALLOPURINOL 2-0 Yes [id number] 100mg TAKE 1 [facility] 100 mg 9-05 TABLET BY ity of tablet 00:00: DAILY Medical Branch ALLOPURINOL 2-0 Yes [id number] 100mg TAKE 1 [facility] 100 mg 9-05 TABLET BY ity of tablet 00:00: DAILY Medical Branch ALLOPURINOL 2-0 Yes [id number] 100mg TAKE 1 [facility] 100 mg 9-05 TABLET BY ity of tablet 00:00: DAILY Medical Branch ALLOPURINOL 2021-0 Yes [id number] 100mg TAKE 1 [facility] 100 mg 9-05 TABLET BY ity of tablet 00:00: DAILY Medical Branch ALLOPURINOL 2021-0 Yes [id number] 100mg TAKE 1 [facility] 100 mg 9-05 TABLET BY ity of tablet 00:00: [facility] DAILY [facility] ALLOPURINOL 2021-0 Yes [id number] 100mg TAKE 1 [facility] 100 mg 9-05 TABLET BY it[facility] of tablet 00:00: DAILY [facility] ALLOPURINOL 2021-0 Yes [id number] 100mg TAKE 1 [facility] 100 mg 9-05 TABLET BY [facility]y of tablet 00:00: [facility] DAILY Medical [facility] ALLOPURINOL 2-0 Yes [id number] 100mg TAKE 1 [facility] 100 mg 9-05 TABLET BY ity of tablet 00:00: [facility] DAILY [facility] ALLOPURINOL 2-0 Yes [id number] 100mg TAKE 1 [facility] 100 mg 9-05 TABLET BY ity of tablet 00:00: [facility] DAILY [facility] Branch ALLOPURINOL 2-0 Yes [id number] 100mg TAKE 1 [facility] 100 mg 9-05 TABLET BY ity of tablet 00:00: [facility] DAILY [facility] Branch ALLOPURINOL 2-0 Yes [id number] 100mg TAKE 1 [facility] 100 mg 9-05 TABLET BY ity of tablet 00:00: [facility] DAILY [facility] ALLOPURINOL 2-0 Yes [id number] 100mg TAKE 1 [facility] 100 mg 9-05 TABLET BY ity of tablet 00:00: [facility] DAILY Medical Branch ALLOPURINOL 2-0 Yes [id number] 100mg TAKE 1 [facility] 100 mg 9-05 TABLET BY ity of tablet 00:00: [facility] DAILY Medical Branch ALLOPURINOL 2021-0 Yes [id number] 100mg TAKE 1 [facility] 100 mg 9-05 TABLET BY ity of tablet 00:00: [facility] DAILY Medical Branch ALLOPURINOL 2021-0 Yes [id number] 100mg TAKE 1 [facility] 100 mg 9-05 TABLET BY ity of tablet 00:00: [facility] DAILY Medical Branch ALLOPURINOL 2021-0 3- No [id number] 100mg TAKE 1 [facility] 100 mg 9-05 05-09 TABLET BY ity of tablet 00:00: 00:00 [facility] 00 :00 DAILY Medical Branch ALLOPURINOL 2021-0 2022- No [id number] 100mg TAKE 1 [facility] 100 mg 9-05 05-09 TABLET BY ity of tablet 00:00: 00:00 [facility] 00 : DAILY Medical Branch ALLOPURINOL 2021-0 2022- No [id number] 100mg TAKE 1 [facility] 100 mg 9-05 05-09 TABLET BY ity of tablet 00:00: 00:00 [facility] 00 : DAILY Medical Branch ALLOPURINOL 2021-0 3- No [id number] 100mg TAKE 1 [facility] 100 mg 9-05 05-09 TABLET BY ity of tablet 00:00: 00:00 [facility] 00 :00 DAILY Medical Branch ALLOPURINOL 2021-0 2022- No [id number] 100mg TAKE 1 [facility] 100 mg 9-05 05-09 TABLET BY ity of tablet 00:00: 00:00 [facility] 00 :00 DAILY Medical Branch GABAPENTIN 2021-0 2021- No [id number] TAKE 1 [facility] 600 mg 9-05 10-05 TABLET BY ity of tablet 00:00: 00:00 [facility] 00 :00 THREE Medical TIMES Branch DAILY GABAPENTIN 2021-0 2021- No [id number] TAKE 1 [facility] 600 mg 9-05 10-05 TABLET BY ity of tablet 00:00: 00:00 [facility] 00 :00 THREE Medical TIMES Branch DAILY OMEPRAZOLE 2021-0 Yes [id number] 40mg TAKE 1 [facility] 40 mg 7-11 CAPSULE BY ity of capsule 00:00: [place] [address] DAILY Medical Branch IPRATROPIUM 2021-0 Yes [id number] USE 2 U nivers 21 mcg 7-11 SPRAYS IN ity of (0.03 %) 00:00: EACH [place] nasal spray 00 NOSTRIL Medic al EVERY 12 Branch HOURS OMEPRAZOLE 2022-0 Yes [id number] 40mg TAKE 1 [facility] 40 mg 7-11 CAPSULE BY ity of capsule 00:00: MOUTH [place] DAILY Medical Branch IPRATROPIUM 2022-0 Yes [id number] USE 2 U nivers 21 mcg 7-11 SPRAYS IN ity of (0.03 %) 00:00: EACH [place] nasal spray 00 NOSTRIL Medic al EVERY 12 Branch HOURS OMEPRAZOLE 2022-0 Yes [id number] 40mg TAKE 1 [facility] 40 mg 7-11 CAPSULE BY ity of capsule 00:00: MOUTH [place] DAILY Medical Branch IPRATROPIUM 2022-0 Yes [id number] USE 2 U nivers 21 mcg 7-11 SPRAYS IN ity of (0.03 %) 00:00: EACH [place] nasal spray 00 NOSTRIL Medic al EVERY 12 Branch HOURS OMEPRAZOLE 2022-0 Yes [id number] 40mg TAKE 1 [facility] 40 mg 7-11 CAPSULE BY ity of capsule 00:00: MOUTH [place] DAILY Medical Branch IPRATROPIUM 2022-0 Yes [id number] USE 2 U nivers 21 mcg 7-11 SPRAYS IN ity of (0.03 %) 00:00: EACH [place] nasal spray 00 NOSTRIL Medic al EVERY 12 Branch HOURS OMEPRAZOLE 2022-0 Yes [id number] 40mg TAKE 1 [facility] 40 mg 7-11 CAPSULE BY ity of capsule 00:00: MOUTH [place] DAILY Medical Branch IPRATROPIUM 2022-0 Yes [id number] USE 2 U nivers 21 mcg 7-11 SPRAYS IN ity of (0.03 %) 00:00: EACH [place] nasal spray 00 NOSTRIL Medic al EVERY 12 Branch HOURS IPRATROPIUM 2022-0 Yes [id number] USE 2 U nivers 21 mcg 7-11 SPRAYS IN ity of (0.03 %) 00:00: EACH [place] nasal spray 00 NOSTRIL Medic al EVERY 12 Branch HOURS IPRATROPIUM 2022-0 Yes [id number] USE 2 U nivers 21 mcg 7-11 SPRAYS IN ity of (0.03 %) 00:00: EACH [place] nasal spray 00 NOSTRIL Medic al EVERY 12 Branch HOURS IPRATROPIUM 2022-0 Yes [id number] USE 2 U nivers 21 mcg 7-11 SPRAYS IN ity of (0.03 %) 00:00: EACH [place] nasal spray 00 NOSTRIL Medic al EVERY 12 Branch HOURS IPRATROPIUM 2022-0 Yes [id number] USE 2 U nivers 21 mcg 7-11 SPRAYS IN ity of (0.03 %) 00:00: EACH [place] nasal spray 00 NOSTRIL Medic al EVERY 12 Branch HOURS IPRATROPIUM 2022-0 Yes [id number] USE 2 U nivers 21 mcg 7-11 SPRAYS IN ity of (0.03 %) 00:00: EACH [place] nasal spray 00 NOSTRIL Medic al EVERY 12 Branch HOURS IPRATROPIUM 2022-0 Yes [id number] USE 2 U nivers 21 mcg 7-11 SPRAYS IN ity of (0.03 %) 00:00: EACH [place] nasal spray 00 NOSTRIL Medic al EVERY 12 Branch HOURS IPRATROPIUM 2022-0 Yes [id number] USE 2 U nivers 21 mcg 7-11 SPRAYS IN ity of (0.03 %) 00:00: EACH [place] nasal spray 00 NOSTRIL Medic al EVERY 12 Branch HOURS IPRATROPIUM 2022-0 Yes [id number] USE 2 U nivers 21 mcg 7-11 SPRAYS IN ity of (0.03 %) 00:00: EACH [place] nasal spray 00 NOSTRIL Medic al EVERY 12 Branch HOURS IPRATROPIUM 2022-0 Yes [id number] USE 2 U nivers 21 mcg 7-11 SPRAYS IN ity of (0.03 %) 00:00: EACH [place] nasal spray 00 NOSTRIL Medic al EVERY 12 Branch HOURS IPRATROPIUM 2022-0 Yes [id number] USE 2 U nivers 21 mcg 7-11 SPRAYS IN ity of (0.03 %) 00:00: EACH [place] nasal spray 00 NOSTRIL Medic al EVERY 12 Branch HOURS IPRATROPIUM 2022-0 Yes [id number] USE 2 U nivers 21 mcg 7-11 SPRAYS IN ity of (0.03 %) 00:00: EACH [place] nasal spray 00 NOSTRIL Medic al EVERY 12 Branch HOURS IPRATROPIUM 2022-0 Yes [id number] USE 2 U nivers 21 mcg 7-11 SPRAYS IN ity of (0.03 %) 00:00: EACH [place] nasal spray 00 NOSTRIL Medic al EVERY 12 Branch HOURS IPRATROPIUM 2022-0 Yes [id number] USE 2 U nivers 21 mcg 7-11 SPRAYS IN ity of (0.03 %) 00:00: EACH [place] nasal spray 00 NOSTRIL Medic al EVERY 12 Branch HOURS IPRATROPIUM 2022-0 Yes [id number] USE 2 U nivers 21 mcg 7-11 SPRAYS IN ity of (0.03 %) 00:00: EACH [place] nasal spray 00 NOSTRIL Medic al EVERY 12 Branch HOURS IPRATROPIUM 2022-0 Yes [id number] USE 2 U nivers 21 mcg 7-11 SPRAYS IN ity of (0.03 %) 00:00: EACH [place] nasal spray 00 NOSTRIL Medic al EVERY 12 Branch HOURS IPRATROPIUM 2022-0 Yes [id number] USE 2 U nivers 21 mcg 7-11 SPRAYS IN ity of (0.03 %) 00:00: EACH [place] nasal spray 00 NOSTRIL Medic al EVERY 12 Branch HOURS IPRATROPIUM 2022-0 Yes [id number] USE 2 U nivers 21 mcg 7-11 SPRAYS IN ity of (0.03 %) 00:00: EACH [place] nasal spray 00 NOSTRIL Medic al EVERY 12 Branch HOURS IPRATROPIUM 2022-0 Yes [id number] USE 2 U nivers 21 mcg 7-11 SPRAYS IN ity of (0.03 %) 00:00: EACH [place] nasal spray 00 NOSTRIL Medic al EVERY 12 Branch HOURS IPRATROPIUM 2022-0 Yes [id number] USE 2 U nivers 21 mcg 7-11 SPRAYS IN ity of (0.03 %) 00:00: EACH [place] nasal spray 00 NOSTRIL Medic al EVERY 12 Branch HOURS IPRATROPIUM 2022-0 Yes [id number] USE 2 U nivers 21 mcg 7-11 SPRAYS IN ity of (0.03 %) 00:00: EACH [place] nasal spray 00 NOSTRIL Medic al EVERY 12 Branch HOURS IPRATROPIUM 2022-0 Yes [id number] USE 2 U nivers 21 mcg 7-11 SPRAYS IN ity of (0.03 %) 00:00: EACH [place] nasal spray 00 NOSTRIL Medic al EVERY 12 Branch HOURS IPRATROPIUM 2022-0 Yes [id number] USE 2 U nivers 21 mcg 7-11 SPRAYS IN ity of (0.03 %) 00:00: EACH [place] nasal spray 00 NOSTRIL Medic al EVERY 12 Branch HOURS IPRATROPIUM 2022-0 Yes [id number] USE 2 U nivers 21 mcg 7-11 SPRAYS IN ity of (0.03 %) 00:00: EACH [place] nasal spray 00 NOSTRIL Medic al EVERY 12 Branch HOURS IPRATROPIUM 2022-0 Yes [id number] USE 2 U nivers 21 mcg 7-11 SPRAYS IN ity of (0.03 %) 00:00: EACH [place] nasal spray 00 NOSTRIL Medic al EVERY 12 Branch HOURS IPRATROPIUM 2022-0 Yes [id number] USE 2 U nivers 21 mcg 7-11 SPRAYS IN ity of (0.03 %) 00:00: EACH [place] nasal spray 00 NOSTRIL Medic al EVERY 12 Branch HOURS IPRATROPIUM 2022-0 Yes [id number] USE 2 U nivers 21 mcg 7-11 SPRAYS IN ity of (0.03 %) 00:00: EACH [place] nasal spray 00 NOSTRIL Medic al EVERY 12 Branch HOURS IPRATROPIUM 2022-0 Yes [id number] USE 2 U nivers 21 mcg 7-11 SPRAYS IN ity of (0.03 %) 00:00: EACH [place] nasal spray 00 NOSTRIL Medic al EVERY 12 Branch HOURS IPRATROPIUM 2022-0 Yes [id number] USE 2 U nivers 21 mcg 7-11 SPRAYS IN ity of (0.03 %) 00:00: EACH [place] nasal spray 00 NOSTRIL Medic al EVERY 12 Branch HOURS IPRATROPIUM 2022-0 Yes [id number] USE 2 U nivers 21 mcg 7-11 SPRAYS IN ity of (0.03 %) 00:00: EACH [place] nasal spray 00 NOSTRIL Medic al EVERY 12 Branch HOURS IPRATROPIUM 2022-0 Yes [id number] USE 2 U nivers 21 mcg 7-11 SPRAYS IN ity of (0.03 %) 00:00: EACH [place] nasal spray 00 NOSTRIL Medic al EVERY 12 Branch HOURS IPRATROPIUM 2022-0 Yes [id number] USE 2 U nivers 21 mcg 7-11 SPRAYS IN ity of (0.03 %) 00:00: EACH [place] nasal spray 00 NOSTRIL Medic al EVERY 12 Branch HOURS IPRATROPIUM 2022-0 Yes [id number] USE 2 U nivers 21 mcg 7-11 SPRAYS IN ity of (0.03 %) 00:00: EACH [place] nasal spray 00 NOSTRIL Medic al EVERY 12 Branch HOURS IPRATROPIUM 2022-0 Yes [id number] USE 2 U nivers 21 mcg 7-11 SPRAYS IN ity of (0.03 %) 00:00: EACH [place] nasal spray 00 NOSTRIL Medic al EVERY 12 Branch HOURS IPRATROPIUM 2022-0 Yes [id number] USE 2 U nivers 21 mcg 7-11 SPRAYS IN ity of (0.03 %) 00:00: EACH [place] nasal spray 00 NOSTRIL Medic al EVERY 12 Branch HOURS IPRATROPIUM 2022-0 Yes [id number] USE 2 U nivers 21 mcg 7-11 SPRAYS IN ity of (0.03 %) 00:00: EACH [place] nasal spray 00 NOSTRIL Medic al EVERY 12 Branch HOURS IPRATROPIUM 2022-0 Yes [id number] USE 2 U nivers 21 mcg 7-11 SPRAYS IN ity of (0.03 %) 00:00: EACH [place] nasal spray 00 NOSTRIL Medic al EVERY 12 Branch HOURS IPRATROPIUM 2022-0 Yes [id number] USE 2 U nivers 21 mcg 7-11 SPRAYS IN ity of (0.03 %) 00:00: EACH [place] nasal spray 00 NOSTRIL Medic al EVERY 12 Branch HOURS IPRATROPIUM 2022-0 Yes [id number] USE 2 U nivers 21 mcg 7-11 SPRAYS IN ity of (0.03 %) 00:00: EACH [place] nasal spray 00 NOSTRIL Medic al EVERY 12 Branch HOURS IPRATROPIUM 2022-0 Yes [id number] USE 2 U nivers 21 mcg 7-11 SPRAYS IN ity of (0.03 %) 00:00: EACH [place] nasal spray 00 NOSTRIL Medic al EVERY 12 Branch HOURS IPRATROPIUM 2022-0 Yes [id number] USE 2 U nivers 21 mcg 7-11 SPRAYS IN ity of (0.03 %) 00:00: EACH [place] nasal spray 00 NOSTRIL Medic al EVERY 12 Branch HOURS IPRATROPIUM 2022-0 Yes [id number] USE 2 U nivers 21 mcg 7-11 SPRAYS IN ity of (0.03 %) 00:00: EACH [place] nasal spray 00 NOSTRIL Medic al EVERY 12 Branch HOURS IPRATROPIUM 2022-0 Yes [id number] USE 2 U nivers 21 mcg 7-11 SPRAYS IN ity of (0.03 %) 00:00: EACH [place] nasal spray 00 NOSTRIL Medic al EVERY 12 Branch HOURS IPRATROPIUM 2022-0 Yes [id number] USE 2 U nivers 21 mcg 7-11 SPRAYS IN ity of (0.03 %) 00:00: EACH [place] nasal spray 00 NOSTRIL Medic al EVERY 12 Branch HOURS IPRATROPIUM 2022-0 Yes [id number] USE 2 U nivers 21 mcg 7-11 SPRAYS IN ity of (0.03 %) 00:00: EACH [place] nasal spray 00 NOSTRIL Medic al EVERY 12 Branch HOURS IPRATROPIUM 2022-0 Yes [id number] USE 2 U nivers 21 mcg 7-11 SPRAYS IN ity of (0.03 %) 00:00: EACH [place] nasal spray 00 NOSTRIL Medic al EVERY 12 Branch HOURS IPRATROPIUM 2022-0 Yes [id number] USE 2 U nivers 21 mcg 7-11 SPRAYS IN ity of (0.03 %) 00:00: EACH [place] nasal spray 00 NOSTRIL Medic al EVERY 12 Branch HOURS IPRATROPIUM 2022-0 Yes [id number] USE 2 U nivers 21 mcg 7-11 SPRAYS IN ity of (0.03 %) 00:00: EACH [place] nasal spray 00 NOSTRIL Medic al EVERY 12 Branch HOURS IPRATROPIUM 2022-0 Yes [id number] USE 2 U nivers 21 mcg 7-11 SPRAYS IN ity of (0.03 %) 00:00: EACH [place] nasal spray 00 NOSTRIL Medic al EVERY 12 Branch HOURS IPRATROPIUM 2022-0 Yes [id number] USE 2 U nivers 21 mcg 7-11 SPRAYS IN ity of (0.03 %) 00:00: EACH [place] nasal spray 00 NOSTRIL Medic al EVERY 12 Branch HOURS IPRATROPIUM 2022-0 Yes [id number] USE 2 U nivers 21 mcg 7-11 SPRAYS IN ity of (0.03 %) 00:00: EACH [place] nasal spray 00 NOSTRIL Medic al EVERY 12 Branch HOURS IPRATROPIUM 2022-0 Yes [id number] USE 2 U nivers 21 mcg 7-11 SPRAYS IN ity of (0.03 %) 00:00: EACH [place] nasal spray 00 NOSTRIL Medic al EVERY 12 Branch HOURS IPRATROPIUM 2022-0 Yes [id number] USE 2 U nivers 21 mcg 7-11 SPRAYS IN ity of (0.03 %) 00:00: EACH [place] nasal spray 00 NOSTRIL Medic al EVERY 12 Branch HOURS IPRATROPIUM 2022-0 Yes [id number] USE 2 U nivers 21 mcg 7-11 SPRAYS IN ity of (0.03 %) 00:00: EACH [place] nasal spray 00 NOSTRIL Medic al EVERY 12 Branch HOURS IPRATROPIUM 2022-0 Yes [id number] USE 2 U nivers 21 mcg 7-11 SPRAYS IN ity of (0.03 %) 00:00: EACH [place] nasal spray 00 NOSTRIL Medic al EVERY 12 Branch HOURS IPRATROPIUM 2022-0 Yes [id number] USE 2 U nivers 21 mcg 7-11 SPRAYS IN ity of (0.03 %) 00:00: EACH [place] nasal spray 00 NOSTRIL Medic al EVERY 12 Branch HOURS IPRATROPIUM 2022-0 Yes [id number] USE 2 U nivers 21 mcg 7-11 SPRAYS IN ity of (0.03 %) 00:00: EACH [place] nasal spray 00 NOSTRIL Medic al EVERY 12 Branch HOURS IPRATROPIUM 2022-0 Yes [id number] USE 2 U nivers 21 mcg 7-11 SPRAYS IN ity of (0.03 %) 00:00: EACH [place] nasal spray 00 NOSTRIL Medic al EVERY 12 Branch HOURS IPRATROPIUM 2022-0 Yes [id number] USE 2 U nivers 21 mcg 7-11 SPRAYS IN ity of (0.03 %) 00:00: EACH [place] nasal spray 00 NOSTRIL Medic al EVERY 12 Branch HOURS IPRATROPIUM 2022-0 Yes [id number] USE 2 U nivers 21 mcg 7-11 SPRAYS IN ity of (0.03 %) 00:00: EACH [place] nasal spray 00 NOSTRIL Medic al EVERY 12 Branch HOURS IPRATROPIUM 2022-0 Yes [id number] USE 2 U nivers 21 mcg 7-11 SPRAYS IN ity of (0.03 %) 00:00: EACH [place] nasal spray 00 NOSTRIL Medic al EVERY 12 Branch HOURS IPRATROPIUM 2022-0 Yes [id number] USE 2 U nivers 21 mcg 7-11 SPRAYS IN ity of (0.03 %) 00:00: EACH [place] nasal spray 00 NOSTRIL Medic al EVERY 12 Branch HOURS IPRATROPIUM 2021-0 Yes [id number] USE 2 U nivers 21 mcg 7-11 SPRAYS IN ity of (0.03 %) 00:00: EACH [place] nasal spray 00 NOSTRIL Medic al EVERY 12 Branch HOURS IPRATROPIUM 2021-0 Yes [id number] USE 2 U nivers 21 mcg 7-11 SPRAYS IN ity of (0.03 %) 00:00: EACH [place] nasal spray 00 NOSTRIL Medic al EVERY 12 Branch HOURS IPRATROPIUM 2021-0 Yes [id number] USE 2 U nivers 21 mcg 7-11 SPRAYS IN ity of (0.03 %) 00:00: EACH [place] nasal spray 00 NOSTRIL Medic al EVERY 12 Branch HOURS IPRATROPIUM 2021-0 Yes [id number] USE 2 U nivers 21 mcg 7-11 SPRAYS IN ity of (0.03 %) 00:00: EACH [place] nasal spray 00 NOSTRIL Medic al EVERY 12 Branch HOURS OMEPRAZOLE 2021-0 2021- No [id number] 40mg TAKE 1 [facility] 40 mg 7-11 10-05 CAPSULE BY ity of capsule 00:00: 00:00 MOUTH [place] 00 :00 DAILY Medical Branch OMEPRAZOLE 2021-0 2021- No [id number] 40mg TAKE 1 [facility] 40 mg 7-11 10-05 CAPSULE BY ity of capsule 00:00: 00:00 MOUTH [place] 00 :00 DAILY Medical Branch PIOGLITAZON 2021-0 Yes [id number] TAKE 1 [facility] E 15 mg 7-05 TABLET BY ity of tablet 00:00: MOUTH [place] 00 EVERY DAY Medical Branch Diclofenac 2021-0 Yes [id number] Apply to [facility] Sodium 7-05 area(s) 4 ity of (VOLTAREN) 00:00: (four) [place] 1 % gel 00 times Medical daily. Branch lidocaine 5 2021-0 Yes [id number] Apply to [facility] % gel 7-05 area(s) 2 ity of 00:00: (two) [place] 00 times Medical daily as Branch needed for Pain (scale 4-6). Apply 5g to affected areas BID PRN nicotine 21 Yes [id number] 1{patch Apply 1 [facility] mg/24 hr 7-05 } Patch to ity of patch 00:00: area(s) [place] 00 daily. Medical Apply 21mg Branch patch daily x 6 weeks; then apply 14mf patch daily x 2 weeks; then apply 7mg patch daily x 2 weeks. Stop smoking on initiation of therapy nicotine Yes [id number] 1{patch Apply 1 [facility] mg/24 hr 7-05 } Patch to ity of patch 00:00: area(s) [place] 00 every 24 Medical (twenty-fo Branch ur) hours. Apply 21mg patch daily x 6 weeks; then apply 14mf patch daily x 2 weeks; then apply 7mg patch daily x 2 weeks. Stop smoking on initiation of therapy nicotine Yes [id number] 1{patch Apply 1 [facility] mg/24 hr 7-05 } Patch to ity of patch 00:00: area(s) [place] 00 every 24 Medical (twenty-fo Branch ur) hours. Apply 21mg patch daily x 6 weeks; then apply 14mf patch daily x 2 weeks; then apply 7mg patch daily x 2 weeks. Stop smoking on initiation of therapy PIOGLITAZON Yes [id number] TAKE 1 [facility] E 15 mg 7-05 TABLET BY ity of tablet 00:00: MOUTH [place] 00 EVERY DAY Medical Branch Diclofenac 2021- Yes [id number] Apply to [facility] Sodium 7-05 area(s) 4 ity of (VOLTAREN) 00:00: (four) [place] 1 % gel 00 times Medical daily. Branch lidocaine 5 Yes [id number] Apply to [facility] % gel 7-05 area(s) 2 ity of 00:00: (two) [place] 00 times Medical daily as Branch needed for Pain (scale 4-6). Apply 5g to affected areas BID PRN nicotine Yes [id number] 1{patch Apply 1 [facility] mg/24 hr 7-05 } Patch to ity of patch 00:00: area(s) [place] 00 daily. Medical Apply 21mg Branch patch daily x 6 weeks; then apply 14mf patch daily x 2 weeks; then apply 7mg patch daily x 2 weeks. Stop smoking on initiation of therapy nicotine 14 Yes [id number] 1{patch Apply 1 [facility] mg/24 hr 7-05 } Patch to ity of patch 00:00: area(s) [place] 00 every 24 Medical (twenty-fo Branch ur) hours. Apply 21mg patch daily x 6 weeks; then apply 14mf patch daily x 2 weeks; then apply 7mg patch daily x 2 weeks. Stop smoking on initiation of therapy nicotine 7 Yes [id number] 1{patch Apply 1 [facility] mg/24 hr 7-05 } Patch to ity of patch 00:00: area(s) [place] 00 every 24 Medical (twenty-fo Branch ur) hours. Apply 21mg patch daily x 6 weeks; then apply 14mf patch daily x 2 weeks; then apply 7mg patch daily x 2 weeks. Stop smoking on initiation of therapy PIOGLITAZON Yes [id number] TAKE 1 [facility] E 15 mg 7-05 TABLET BY ity of tablet 00:00: MOUTH [place] 00 EVERY DAY Medical Branch Diclofenac 2021- Yes [id number] Apply to [facility] Sodium 7-05 area(s) 4 ity of (VOLTAREN) 00:00: (four) [place] 1 % gel 00 times Medical daily. Branch lidocaine 5 Yes [id number] Apply to [facility] % gel 7-05 area(s) 2 ity of 00:00: (two) [place] 00 times Medical daily as Branch needed for Pain (scale 4-6). Apply 5g to affected areas BID PRN nicotine Yes [id number] 1{patch Apply 1 [facility] mg/24 hr 7-05 } Patch to ity of patch 00:00: area(s) [place] 00 daily. Medical Apply 21mg Branch patch daily x 6 weeks; then apply 14mf patch daily x 2 weeks; then apply 7mg patch daily x 2 weeks. Stop smoking on initiation of therapy nicotine 14 Yes [id number] 1{patch Apply 1 [facility] mg/24 hr 7-05 } Patch to ity of patch 00:00: area(s) [place] 00 every 24 Medical (twenty-fo Branch ur) hours. Apply 21mg patch daily x 6 weeks; then apply 14mf patch daily x 2 weeks; then apply 7mg patch daily x 2 weeks. Stop smoking on initiation of therapy nicotine 7 Yes [id number] 1{patch Apply 1 [facility] mg/24 hr 7-05 } Patch to ity of patch 00:00: area(s) [place] 00 every 24 Medical (twenty-fo Branch ur) hours. Apply 21mg patch daily x 6 weeks; then apply 14mf patch daily x 2 weeks; then apply 7mg patch daily x 2 weeks. Stop smoking on initiation of therapy PIOGLITAZON Yes [id number] TAKE 1 [facility] E 15 mg 7-05 TABLET BY ity of tablet 00:00: MOUTH [place] 00 EVERY DAY Medical Branch Diclofenac Yes [id number] Apply to [facility] Sodium 7-05 area(s) 4 ity of (VOLTAREN) 00:00: (four) [place] 1 % gel 00 times Medical daily. Branch lidocaine 5 Yes [id number] Apply to [facility] % gel 7-05 area(s) 2 ity of 00:00: (two) [place] 00 times Medical daily as Branch needed for Pain (scale 4-6). Apply 5g to affected areas BID PRN nicotine 21 Yes [id number] 1{patch Apply 1 [facility] mg/24 hr 7-05 } Patch to ity of patch 00:00: area(s) [place] 00 daily. Medical Apply 21mg Branch patch daily x 6 weeks; then apply 14mf patch daily x 2 weeks; then apply 7mg patch daily x 2 weeks. Stop smoking on initiation of therapy nicotine 14 Yes [id number] 1{patch Apply 1 [facility] mg/24 hr 7-05 } Patch to ity of patch 00:00: area(s) [place] 00 every 24 Medical (twenty-fo Branch ur) hours. Apply 21mg patch daily x 6 weeks; then apply 14mf patch daily x 2 weeks; then apply 7mg patch daily x 2 weeks. Stop smoking on initiation of therapy nicotine 7 Yes [id number] 1{patch Apply 1 [facility] mg/24 hr 7-05 } Patch to ity of patch 00:00: area(s) [place] 00 every 24 Medical (twenty-fo Branch ur) hours. Apply 21mg patch daily x 6 weeks; then apply 14mf patch daily x 2 weeks; then apply 7mg patch daily x 2 weeks. Stop smoking on initiation of therapy PIOGLITAZON Yes [id number] TAKE 1 [facility] E 15 mg 7-05 TABLET BY ity of tablet 00:00: MOUTH [place] 00 EVERY DAY Medical Branch Diclofenac Yes [id number] Apply to [facility] Sodium 7-05 area(s) 4 ity of (VOLTAREN) 00:00: (four) [place] 1 % gel 00 times Medical daily. Branch lidocaine 5 2021- Yes [id number] Apply to [facility] % gel 7-05 area(s) 2 ity of 00:00: (two) [place] 00 times Medical daily as Branch needed for Pain (scale 4-6). Apply 5g to affected areas BID PRN nicotine Yes [id number] 1{patch Apply 1 [facility] mg/24 hr 7-05 } Patch to ity of patch 00:00: area(s) [place] 00 daily. Medical Apply 21mg Branch patch daily x 6 weeks; then apply 14mf patch daily x 2 weeks; then apply 7mg patch daily x 2 weeks. Stop smoking on initiation of therapy nicotine 14 Yes [id number] 1{patch Apply 1 [facility] mg/24 hr 7-05 } Patch to ity of patch 00:00: area(s) [place] 00 every 24 Medical (twenty-fo Branch ur) hours. Apply 21mg patch daily x 6 weeks; then apply 14mf patch daily x 2 weeks; then apply 7mg patch daily x 2 weeks. Stop smoking on initiation of therapy nicotine 7 Yes [id number] 1{patch Apply 1 [facility] mg/24 hr 7-05 } Patch to ity of patch 00:00: area(s) [place] 00 every 24 Medical (twenty-fo Branch ur) hours. Apply 21mg patch daily x 6 weeks; then apply 14mf patch daily x 2 weeks; then apply 7mg patch daily x 2 weeks. Stop smoking on initiation of therapy Diclofenac Yes [id number] Apply to [facility] Sodium 7-05 area(s) 4 ity of (VOLTAREN) 00:00: (four) [place] 1 % gel 00 times Medical daily. Branch lidocaine 5 2021- Yes [id number] Apply to [facility] % gel 7-05 area(s) 2 ity of 00:00: (two) [place] 00 times Medical daily as Branch needed for Pain (scale 4-6). Apply 5g to affected areas BID PRN nicotine 21 Yes [id number] 1{patch Apply 1 [facility] mg/24 hr 7-05 } Patch to ity of patch 00:00: area(s) [place] 00 daily. Medical Apply 21mg Branch patch daily x 6 weeks; then apply 14mf patch daily x 2 weeks; then apply 7mg patch daily x 2 weeks. Stop smoking on initiation of therapy nicotine 14 Yes [id number] 1{patch Apply 1 [facility] mg/24 hr 7-05 } Patch to ity of patch 00:00: area(s) [place] 00 every 24 Medical (twenty-fo Branch ur) hours. Apply 21mg patch daily x 6 weeks; then apply 14mf patch daily x 2 weeks; then apply 7mg patch daily x 2 weeks. Stop smoking on initiation of therapy nicotine Yes [id number] 1{patch Apply 1 [facility] mg/24 hr 7-05 } Patch to ity of patch 00:00: area(s) [place] 00 every 24 Medical (twenty-fo Branch ur) hours. Apply 21mg patch daily x 6 weeks; then apply 14mf patch daily x 2 weeks; then apply 7mg patch daily x 2 weeks. Stop smoking on initiation of therapy Diclofenac Yes [id number] Apply to [facility] Sodium 7-05 area(s) 4 ity of (VOLTAREN) 00:00: (four) [place] 1 % gel 00 times Medical daily. Branch lidocaine Yes [id number] Apply to [facility] % gel 7-05 area(s) 2 ity of 00:00: (two) [place] 00 times Medical daily as Branch needed for Pain (scale 4-6). Apply 5g to affected areas BID PRN nicotine Yes [id number] 1{patch Apply 1 [facility] mg/24 hr 7-05 } Patch to ity of patch 00:00: area(s) [place] 00 daily. Medical Apply 21mg Branch patch daily x 6 weeks; then apply 14mf patch daily x 2 weeks; then apply 7mg patch daily x 2 weeks. Stop smoking on initiation of therapy nicotine 14 Yes [id number] 1{patch Apply 1 [facility] mg/24 hr 7-05 } Patch to ity of patch 00:00: area(s) [place] 00 every 24 Medical (twenty-fo Branch ur) hours. Apply 21mg patch daily x 6 weeks; then apply 14mf patch daily x 2 weeks; then apply 7mg patch daily x 2 weeks. Stop smoking on initiation of therapy nicotine 7 Yes [id number] 1{patch Apply 1 [facility] mg/24 hr 7-05 } Patch to ity of patch 00:00: area(s) [place] 00 every 24 Medical (twenty-fo Branch ur) hours. Apply 21mg patch daily x 6 weeks; then apply 14mf patch daily x 2 weeks; then apply 7mg patch daily x 2 weeks. Stop smoking on initiation of therapy Diclofenac Yes [id number] Apply to [facility] Sodium 7-05 area(s) 4 ity of (VOLTAREN) 00:00: (four) [place] 1 % gel 00 times Medical daily. Branch lidocaine 5 Yes [id number] Apply to [facility] % gel 7-05 area(s) 2 ity of 00:00: (two) [place] 00 times Medical daily as Branch needed for Pain (scale 4-6). Apply 5g to affected areas BID PRN nicotine Yes [id number] 1{patch Apply 1 [facility] mg/24 hr 7-05 } Patch to ity of patch 00:00: area(s) [place] 00 daily. Medical Apply 21mg Branch patch daily x 6 weeks; then apply 14mf patch daily x 2 weeks; then apply 7mg patch daily x 2 weeks. Stop smoking on initiation of therapy nicotine 14 Yes [id number] 1{patch Apply 1 [facility] mg/24 hr 7-05 } Patch to ity of patch 00:00: area(s) [place] 00 every 24 Medical (twenty-fo Branch ur) hours. Apply 21mg patch daily x 6 weeks; then apply 14mf patch daily x 2 weeks; then apply 7mg patch daily x 2 weeks. Stop smoking on initiation of therapy nicotine 7 Yes [id number] 1{patch Apply 1 [facility] mg/24 hr 7-05 } Patch to ity of patch 00:00: area(s) [place] 00 every 24 Medical (twenty-fo Branch ur) hours. Apply 21mg patch daily x 6 weeks; then apply 14mf patch daily x 2 weeks; then apply 7mg patch daily x 2 weeks. Stop smoking on initiation of therapy Diclofenac Yes [id number] Apply to [facility] Sodium 7-05 area(s) 4 ity of (VOLTAREN) 00:00: (four) [place] 1 % gel 00 times Medical daily. Branch lidocaine 5 Yes [id number] Apply to [facility] % gel 7-05 area(s) 2 ity of 00:00: (two) [place] 00 times Medical daily as Branch needed for Pain (scale 4-6). Apply 5g to affected areas BID PRN nicotine Yes [id number] 1{patch Apply 1 [facility] mg/24 hr 7-05 } Patch to ity of patch 00:00: area(s) [place] 00 daily. Medical Apply 21mg Branch patch daily x 6 weeks; then apply 14mf patch daily x 2 weeks; then apply 7mg patch daily x 2 weeks. Stop smoking on initiation of therapy nicotine Yes [id number] 1{patch Apply 1 [facility] mg/24 hr 7-05 } Patch to ity of patch 00:00: area(s) [place] 00 every 24 Medical (twenty-fo Branch ur) hours. Apply 21mg patch daily x 6 weeks; then apply 14mf patch daily x 2 weeks; then apply 7mg patch daily x 2 weeks. Stop smoking on initiation of therapy nicotine Yes [id number] 1{patch Apply 1 [facility] mg/24 hr 7-05 } Patch to ity of patch 00:00: area(s) [place] 00 every 24 Medical (twenty-fo Branch ur) hours. Apply 21mg patch daily x 6 weeks; then apply 14mf patch daily x 2 weeks; then apply 7mg patch daily x 2 weeks. Stop smoking on initiation of therapy Diclofenac Yes [id number] Apply to [facility] Sodium 7-05 area(s) 4 ity of (VOLTAREN) 00:00: (four) [place] 1 % gel 00 times Medical daily. Branch lidocaine 5 Yes [id number] Apply to [facility] % gel 7-05 area(s) 2 ity of 00:00: (two) [place] 00 times Medical daily as Branch needed for Pain (scale 4-6). Apply 5g to affected areas BID PRN nicotine Yes [id number] 1{patch Apply 1 [facility] mg/24 hr 7-05 } Patch to ity of patch 00:00: area(s) [place] 00 daily. Medical Apply 21mg Branch patch daily x 6 weeks; then apply 14mf patch daily x 2 weeks; then apply 7mg patch daily x 2 weeks. Stop smoking on initiation of therapy nicotine 2021-0 Yes [id number] 1{patch Apply 1 [facility] mg/24 hr 7-05 } Patch to ity of patch 00:00: area(s) [place] 00 every 24 Medical (twenty-fo Branch ur) hours. Apply 21mg patch daily x 6 weeks; then apply 14mf patch daily x 2 weeks; then apply 7mg patch daily x 2 weeks. Stop smoking on initiation of therapy nicotine 7 Yes [id number] 1{patch Apply 1 [facility] mg/24 hr 7-05 } Patch to ity of patch 00:00: area(s) [place] 00 every 24 Medical (twenty-fo Branch ur) hours. Apply 21mg patch daily x 6 weeks; then apply 14mf patch daily x 2 weeks; then apply 7mg patch daily x 2 weeks. Stop smoking on initiation of therapy Diclofenac Yes [id number] Apply to [facility] Sodium 7-05 area(s) 4 ity of (VOLTAREN) 00:00: (four) [place] 1 % gel 00 times Medical daily. Branch lidocaine Yes [id number] Apply to [facility] % gel 7-05 area(s) 2 ity of 00:00: (two) [place] 00 times Medical daily as Branch needed for Pain (scale 4-6). Apply 5g to affected areas BID PRN nicotine Yes [id number] 1{patch Apply 1 [facility] mg/24 hr 7-05 } Patch to ity of patch 00:00: area(s) [place] 00 daily. Medical Apply 21mg Branch patch daily x 6 weeks; then apply 14mf patch daily x 2 weeks; then apply 7mg patch daily x 2 weeks. Stop smoking on initiation of therapy nicotine 14 Yes [id number] 1{patch Apply 1 [facility] mg/24 hr 7-05 } Patch to ity of patch 00:00: area(s) [place] 00 every 24 Medical (twenty-fo Branch ur) hours. Apply 21mg patch daily x 6 weeks; then apply 14mf patch daily x 2 weeks; then apply 7mg patch daily x 2 weeks. Stop smoking on initiation of therapy nicotine 7 Yes [id number] 1{patch Apply 1 [facility] mg/24 hr 7-05 [...] to affected areas BID PRN nicotine Yes [id number] 1{patch Apply 1 [facility] mg/24 hr 7-05 } Patch to ity of patch 00:00: area(s) [place] 00 daily. Medical Apply 21mg Branch patch daily x 6 weeks; then apply 14mf patch daily x 2 weeks; then apply 7mg patch daily x 2 weeks. Stop smoking on initiation of therapy nicotine 14 Yes [id number] 1{patch Apply 1 [facility] mg/24 hr 7-05 } Patch to ity of patch 00:00: area(s) [place] 00 every 24 Medical (twenty-fo Branch ur) hours. Apply 21mg patch daily x 6 weeks; then apply 14mf patch daily x 2 weeks; then apply 7mg patch daily x 2 weeks. Stop smoking on initiation of therapy nicotine 7 Yes [id number] 1{patch Apply 1 [facility] mg/24 hr 7-05 [...] to affected areas BID PRN nicotine Yes [id number] 1{patch Apply 1 [facility] mg/24 hr 7-05 } Patch to ity of patch 00:00: area(s) [place] 00 daily. Medical Apply 21mg Branch patch daily x 6 weeks; then apply 14mf patch daily x 2 weeks; then apply 7mg patch daily x 2 weeks. Stop smoking on initiation of therapy nicotine Yes [id number] 1{patch Apply 1 [facility] mg/24 hr 7-05 } Patch to ity of patch 00:00: area(s) [place] 00 every 24 Medical (twenty-fo Branch ur) hours. Apply 21mg patch daily x 6 weeks; then apply 14mf patch daily x 2 weeks; then apply 7mg patch daily x 2 weeks. Stop smoking on initiation of therapy nicotine Yes [id number] 1{patch Apply 1 [facility] mg/24 hr 7-05 } Patch to ity of patch 00:00: area(s) [place] 00 every 24 Medical (twenty-fo Branch ur) hours. Apply 21mg patch daily x 6 weeks; then apply 14mf patch daily x 2 weeks; then apply 7mg patch daily x 2 weeks. Stop smoking on initiation of therapy Diclofenac Yes [id number] Apply to [facility] Sodium 7-05 area(s) 4 ity of (VOLTAREN) 00:00: (four) [place] 1 % gel 00 times Medical daily. Branch lidocaine 5 Yes [id number] Apply to [facility] % gel 7-05 area(s) 2 ity of 00:00: (two) [place] 00 times Medical daily as Branch needed for Pain (scale 4-6). Apply 5g to affected areas BID PRN nicotine Yes [id number] 1{patch Apply 1 [facility] mg/24 hr 7-05 } Patch to ity of patch 00:00: area(s) [place] 00 daily. Medical Apply 21mg Branch patch daily x 6 weeks; then apply 14mf patch daily x 2 weeks; then apply 7mg patch daily x 2 weeks. Stop smoking on initiation of therapy nicotine Yes [id number] 1{patch Apply 1 [facility] mg/24 hr 7-05 } Patch to ity of patch 00:00: area(s) [place] 00 every 24 Medical (twenty-fo Branch ur) hours. Apply 21mg patch daily x 6 weeks; then apply 14mf patch daily x 2 weeks; then apply 7mg patch daily x 2 weeks. Stop smoking on initiation of therapy nicotine 7 Yes [id number] 1{patch Apply 1 [facility] mg/24 hr 7-05 } Patch to ity of patch 00:00: area(s) [place] 00 every 24 Medical (twenty-fo Branch ur) hours. Apply 21mg patch daily x 6 weeks; then apply 14mf patch daily x 2 weeks; then apply 7mg patch daily x 2 weeks. Stop smoking on initiation of therapy Diclofenac Yes [id number] Apply to [facility] Sodium 7-05 area(s) 4 ity of (VOLTAREN) 00:00: (four) [place] 1 % gel 00 times Medical daily. Branch lidocaine 5 Yes [id number] Apply to [facility] % gel 7-05 area(s) 2 ity of 00:00: (two) [place] 00 times Medical daily as Branch needed for Pain (scale 4-6). Apply 5g to affected areas BID PRN nicotine Yes [id number] 1{patch Apply 1 [facility] mg/24 hr 7-05 } Patch to ity of patch 00:00: area(s) [place] 00 daily. Medical Apply 21mg Branch patch daily x 6 weeks; then apply 14mf patch daily x 2 weeks; then apply 7mg patch daily x 2 weeks. Stop smoking on initiation of therapy nicotine 14 Yes [id number] 1{patch Apply 1 [facility] mg/24 hr 7-05 } Patch to ity of patch 00:00: area(s) [place] 00 every 24 Medical (twenty-fo Branch ur) hours. Apply 21mg patch daily x 6 weeks; then apply 14mf patch daily x 2 weeks; then apply 7mg patch daily x 2 weeks. Stop smoking on initiation of therapy nicotine 7 Yes [id number] 1{patch Apply 1 [facility] mg/24 hr 7-05 } Patch to ity of patch 00:00: area(s) [place] 00 every 24 Medical (twenty-fo Branch ur) hours. Apply 21mg patch daily x 6 weeks; then apply 14mf patch daily x 2 weeks; then apply 7mg patch daily x 2 weeks. Stop smoking on initiation of therapy Diclofenac Yes [id number] Apply to [facility] Sodium 7-05 area(s) 4 ity of (VOLTAREN) 00:00: (four) [place] 1 % gel 00 times Medical daily. Branch lidocaine 5 Yes [id number] Apply to [facility] % gel 7-05 area(s) 2 ity of 00:00: (two) [place] 00 times Medical daily as Branch needed for Pain (scale 4-6). Apply 5g to affected areas BID PRN nicotine Yes [id number] 1{patch Apply 1 [facility] mg/24 hr 7-05 } Patch to ity of patch 00:00: area(s) [place] 00 daily. Medical Apply 21mg Branch patch daily x 6 weeks; then apply 14mf patch daily x 2 weeks; then apply 7mg patch daily x 2 weeks. Stop smoking on initiation of therapy nicotine 14 Yes [id number] 1{patch Apply 1 [facility] mg/24 hr 7-05 } Patch to ity of patch 00:00: area(s) [place] 00 every 24 Medical (twenty-fo Branch ur) hours. Apply 21mg patch daily x 6 weeks; then apply 14mf patch daily x 2 weeks; then apply 7mg patch daily x 2 weeks. Stop smoking on initiation of therapy nicotine Yes [id number] 1{patch Apply 1 [facility] mg/24 hr 7-05 } Patch to ity of patch 00:00: area(s) [place] 00 every 24 Medical (twenty-fo Branch ur) hours. Apply 21mg patch daily x 6 weeks; then apply 14mf patch daily x 2 weeks; then apply 7mg patch daily x 2 weeks. Stop smoking on initiation of therapy Diclofenac Yes [id number] Apply to [facility] Sodium 7-05 area(s) 4 ity of (VOLTAREN) 00:00: (four) [place] 1 % gel 00 times Medical daily. Branch lidocaine 5 Yes Apply to [facility] % gel 7-05 area(s) 2 ity of 00:00: (two) [place] 00 times Medical daily as Branch needed for Pain (scale 4-6). Apply 5g to affected areas BID PRN nicotine Yes [id number] 1{patch Apply 1 [facility] mg/24 hr 7-05 } Patch to ity of patch 00:00: area(s) [place] 00 daily. Medical Apply 21mg Branch patch daily x 6 weeks; then apply 14mf patch daily x 2 weeks; then apply 7mg patch daily x 2 weeks. Stop smoking on initiation of therapy nicotine Yes [id number] 1{patch Apply 1 [facility] mg/24 hr 7-05 } Patch to ity of patch 00:00: area(s) [place] 00 every 24 Medical (twenty-fo Branch ur) hours. Apply 21mg patch daily x 6 weeks; then apply 14mf patch daily x 2 weeks; then apply 7mg patch daily x 2 weeks. Stop smoking on initiation of therapy nicotine Yes [id number] 1{patch Apply 1 [facility] mg/24 hr 7-05 } Patch to ity of patch 00:00: area(s) [place] 00 every 24 Medical (twenty-fo Branch ur) hours. Apply 21mg patch daily x 6 weeks; then apply 14mf patch daily x 2 weeks; then apply 7mg patch daily x 2 weeks. Stop smoking on initiation of therapy Diclofenac Yes [id number] Apply to [facility] Sodium 7-05 area(s) 4 ity of (VOLTAREN) 00:00: (four) [place] 1 % gel 00 times Medical daily. Branch lidocaine Yes [id number] Apply to [facility] % gel 7-05 area(s) 2 ity of 00:00: (two) [place] 00 times Medical daily as Branch needed for Pain (scale 4-6). Apply 5g to affected areas BID PRN nicotine Yes [id number] 1{patch Apply 1 [facility] mg/24 hr 7-05 } Patch to ity of patch 00:00: area(s) [place] 00 daily. Medical Apply 21mg Branch patch daily x 6 weeks; then apply 14mf patch daily x 2 weeks; then apply 7mg patch daily x 2 weeks. Stop smoking on initiation of therapy nicotine 14 Yes [id number] 1{patch Apply 1 [facility] mg/24 hr 7-05 } Patch to ity of patch 00:00: area(s) [place] 00 every 24 Medical (twenty-fo Branch ur) hours. Apply 21mg patch daily x 6 weeks; then apply 14mf patch daily x 2 weeks; then apply 7mg patch daily x 2 weeks. Stop smoking on initiation of therapy nicotine 7 Yes [id number] 1{patch Apply 1 [facility] mg/24 hr 7-05 } Patch to ity of patch 00:00: area(s) [place] 00 every 24 Medical (twenty-fo Branch ur) hours. Apply 21mg patch daily x 6 weeks; then apply 14mf patch daily x 2 weeks; then apply 7mg patch daily x 2 weeks. Stop smoking on initiation of therapy Diclofenac Yes [id number] Apply to [facility] Sodium 7-05 area(s) 4 ity of (VOLTAREN) 00:00: (four) [place] 1 % gel 00 times Medical daily. Branch lidocaine 5 Yes [id number] Apply to [facility] % gel 7-05 area(s) 2 ity of 00:00: (two) [place] 00 times Medical daily as Branch needed for Pain (scale 4-6). Apply 5g to affected areas BID PRN nicotine Yes [id number] 1{patch Apply 1 [facility] mg/24 hr 7-05 } Patch to ity of patch 00:00: area(s) [place] 00 daily. Medical Apply 21mg Branch patch daily x 6 weeks; then apply 14mf patch daily x 2 weeks; then apply 7mg patch daily x 2 weeks. Stop smoking on initiation of therapy nicotine 14 Yes [id number] 1{patch Apply 1 [facility] mg/24 hr 7-05 } Patch to ity of patch 00:00: area(s) [place] 00 every 24 Medical (twenty-fo Branch ur) hours. Apply 21mg patch daily x 6 weeks; then apply 14mf patch daily x 2 weeks; then apply 7mg patch daily x 2 weeks. Stop smoking on initiation of therapy nicotine 7 Yes [id number] 1{patch Apply 1 [facility] mg/24 hr 7-05 } Patch to ity of patch 00:00: area(s) [place] 00 every 24 Medical (twenty-fo Branch ur) hours. Apply 21mg patch daily x 6 weeks; then apply 14mf patch daily x 2 weeks; then apply 7mg patch daily x 2 weeks. Stop smoking on initiation of therapy Diclofenac Yes [id number] Apply to [facility] Sodium 7-05 area(s) 4 ity of (VOLTAREN) 00:00: (four) [place] 1 % gel 00 times Medical daily. Branch lidocaine 5 Yes Apply to [facility] % gel 7-05 area(s) 2 ity of 00:00: (two) [place] 00 times Medical daily as Branch needed for Pain (scale 4-6). Apply 5g to affected areas BID PRN nicotine 21 2021- Yes [id number] 1{patch Apply 1 [facility] mg/24 hr 7-05 } Patch to ity of patch 00:00: area(s) [place] 00 daily. Medical Apply 21mg Branch patch daily x 6 weeks; then apply 14mf patch daily x 2 weeks; then apply 7mg patch daily x 2 weeks. Stop smoking on initiation of therapy nicotine 14 Yes [id number] 1{patch Apply 1 [facility] mg/24 hr 7-05 } Patch to ity of patch 00:00: area(s) [place] 00 every 24 Medical (twenty-fo Branch ur) hours. Apply 21mg patch daily x 6 weeks; then apply 14mf patch daily x 2 weeks; then apply 7mg patch daily x 2 weeks. Stop smoking on initiation of therapy nicotine 7 Yes [id number] 1{patch Apply 1 [facility] mg/24 hr 7-05 [...] 5g to affected areas BID PRN Diclofenac 2021- Yes Apply to [facility] Sodium [...] Medical daily. Branch lidocaine 5 2021-0 Yes [id number] Apply to [facility] % gel 7-05 area(s) [...] Medical daily. Branch lidocaine 5 2-0 Yes [id number] Apply to [facility] % gel 7-05 area(s) [...] Medical daily. Branch lidocaine 5 2021-0 Yes [id number] Apply to [facility] % gel 7-05 area(s) [...] Medical daily. Branch lidocaine 5 2021-0 Yes [id number] Apply to [facility] % gel 7-05 area(s) [...] Medical daily. Branch lidocaine 5 2021-0 Yes [id number] Apply to [facility] % gel 7-05 area(s) 2 ity of 00:00: (two) [place] 00 times Medical daily as Branch needed for Pain (scale 4-6). Apply 5g to affected areas BID PRN Diclofenac 2022-0 Yes [id number] Apply to [facility] Sodium 7-05 area(s) 4 ity of (VOLTAREN) 00:00: (four) [place] 1 % gel 00 times Medical daily. Branch lidocaine 5 2022-0 Yes Apply to [facility] % gel 7-05 [...] Medical daily. Branch lidocaine 5 2021-0 Yes [id number] Apply to [facility] % gel 7-05 area(s) [...] Medical daily. Branch lidocaine 5 2021-0 Yes [id number] Apply to [facility] % gel 7-05 area(s) 2 ity of 00:00: (two) [place] 00 times Medical daily as Branch needed for Pain (scale 4-6). Apply 5g to affected areas BID PRN Diclofenac 2022-0 Yes [id number] Apply to [facility] Sodium 7-05 area(s) 4 [...] 5g to affected areas BID PRN nicotine 2022- No [id number] 1{patch Apply 1 [facility] mg/24 hr 05-08-05 } Patch to ity of patch 00:00: 00:00 [facility](s) [place] 00 :00 daily. Medical Apply 21mg Branch patch daily x 6 weeks; then apply 14mf patch daily x 2 weeks; then apply 7mg patch daily x 2 weeks. Stop smoking on initiation of therapy nicotine 2022- No [id number] 1{patch Apply 1 [facility] mg/24 hr 05-08 } Patch to ity of patch 00:00: 00:00 [facility](s) [place] 00 :00 every 24 Medical (twenty-fo Branch ur) hours. Apply 21mg patch daily x 6 weeks; then apply 14mf patch daily x 2 weeks; then apply 7mg patch daily x 2 weeks. Stop smoking on initiation of therapy nicotine 2022- No [id number] 1{patch Apply 1 [facility] mg/24 hr 05-08 } Patch to ity of patch 00:00: 00:00 area(s) [place] 00 :00 every 24 Medical (twenty-fo Branch ur) hours. Apply 21mg patch daily x 6 weeks; then apply 14mf patch daily x 2 weeks; then apply 7mg patch daily x 2 weeks. Stop smoking on initiation of therapy nicotine 2022- No [id number] 1{patch Apply 1 [facility] mg/24 hr 05-08 } Patch to ity of patch 00:00: 00:00 [facility](s) [place] 00 :00 daily. Medical Apply 21mg Branch patch daily x 6 weeks; then apply 14mf patch daily x 2 weeks; then apply 7mg patch daily x 2 weeks. Stop smoking on initiation of therapy nicotine 2022- No [id number] 1{patch Apply 1 [facility] mg/24 hr 05-0805 } Patch to ity of patch 00:00: 00:00 area(s) [place] 00 :00 every 24 Medical (twenty-fo Branch ur) hours. Apply 21mg patch daily x 6 weeks; then apply 14mf patch daily x 2 weeks; then apply 7mg patch daily x 2 weeks. Stop smoking on initiation of therapy nicotine 2022- No [id number] 1{patch Apply 1 [facility] mg/24 hr 05-08-05 } Patch to ity of patch 00:00: 00:00 [facility](s) [place] 00 :00 every 24 Medical ([facility] ur) hours. Apply 21mg patch daily x 6 weeks; then apply 14mf patch daily x 2 weeks; then apply 7mg patch daily x 2 weeks. Stop smoking on initiation of therapy nicotine 2022- No [id number] 1{patch Apply 1 [facility] mg/24 hr 05-08-05 } Patch to ity of patch 00:00: 00:00 area(s) [place] 00 :00 daily. Medical Apply 21mg Branch patch daily x 6 weeks; then apply 14mf patch daily x 2 weeks; then apply 7mg patch daily x 2 weeks. Stop smoking on initiation of therapy nicotine 2022- No [id number] 1{patch Apply 1 [facility] mg/24 hr 05-08 } Patch to ity of patch 00:00: 00:00 [facility](s) [place] 00 :00 every 24 Medical ([facility] ur) hours. Apply 21mg patch daily x 6 weeks; then apply 14mf patch daily x 2 weeks; then apply 7mg patch daily x 2 weeks. Stop smoking on initiation of therapy nicotine 2022- No [id number] 1{patch Apply 1 [facility] mg/24 hr 05-0805 } Patch to ity of patch 00:00: 00:00 [facility](s) [place] 00 :00 every 24 Medical ([facility] ur) hours. Apply 21mg patch daily x 6 weeks; then apply 14mf patch daily x 2 weeks; then apply 7mg patch daily x 2 weeks. Stop smoking on initiation of therapy nicotine 2022- No [id number] 1{patch Apply 1 [facility] mg/24 hr 05-08-05 } Patch to ity of patch 00:00: 00:00 [facility](s) [place] 00 :00 daily. Medical Apply 21mg Branch patch daily x 6 weeks; then apply 14mf patch daily x 2 weeks; then apply 7mg patch daily x 2 weeks. Stop smoking on initiation of therapy nicotine 2022- No [id number] 1{patch Apply 1 [facility] mg/24 hr 05-08-05 } Patch to ity of patch 00:00: 00:00 [facility](s) [place] 00 :00 every 24 [facility]. Apply 21mg patch daily x 6 weeks; then apply 14mf patch daily x 2 weeks; then apply 7mg patch daily x 2 weeks. Stop smoking on initiation of therapy nicotine 7 3- No [id number] 1{patch Apply 1 [facility] mg/24 hr 7-05 -05 } Patch to ity of patch 00:00: 00:00 [facility](s) [place] 00 :00 every 24 [facility]. Apply 21mg patch daily x 6 weeks; then apply 14mf patch daily x 2 weeks; then apply 7mg patch daily x 2 weeks. Stop smoking on initiation of therapy PIOGLITAZON 2021- No [id number] TAKE 1 [facility] E 15 mg 7-05 10-05 TABLET BY ity of tablet 00:00: 00:00 MOUTH [place] 00 :00 EVERY DAY Medical Branch PIOGLITAZON 2021- No [id number] TAKE 1 [facility] E 15 mg 7-05 10-05 TABLET BY ity of tablet 00:00: 00:00 MOUTH [place] 00 :00 EVERY DAY Medical Branch gabapentin 2021-0 Yes [id number] 600mg Take 1 [facility] 600 mg 5-31 tablet by ity of tablet 00:00: mouth 3 [place] 00 (three) Medical times [place] daily. furosemide 2021-0 Yes [id number] Take lasix [facility] (LASIX) 40 5-31 40 mg BID ity of mg tablet 00:00: [place] 00 Medical Branch allopurinoL 2021-0 Yes [id number] 100mg Take 1 [facility] 100 mg 5-31 tablet by ity of tablet 00:00: mouth [place] 00 daily. Medical Branch gabapentin 2021-0 Yes [id number] 600mg Take 1 [facility] 600 mg 5-31 tablet by ity of tablet 00:00: mouth 3 [place] 00 (three) Medical times Branch daily. furosemide 2021-0 Yes [id number] Take lasix [facility] (LASIX) 40 5-31 40 mg BID ity of mg tablet 00:00: [place] 00 Medical Branch allopurinoL 2021-0 Yes [id number] 100mg Take 1 [facility] 100 mg 5-31 tablet by ity of tablet 00:00: mouth [place] 00 daily. Medical Branch furosemide 2021-0 Yes [id number] Take lasix [facility] (LASIX) 40 5-31 40 mg BID ity of mg tablet 00:00: [place] 00 Medical Branch furosemide 2021-0 Yes [id number] Take lasix [facility] (LASIX) 40 5-31 40 mg BID ity of mg tablet 00:00: [place] 00 Medical Branch furosemide 2021-0 Yes [id number] Take lasix [facility] (LASIX) 40 5-31 40 mg BID ity of mg tablet 00:00: [place] 00 Medical Branch furosemide 2021-0 2021- No [id number] Take lasix [facility] (LASIX) 40 5-31 10-05 40 mg BID ity of mg tablet 00:00: 00:00 [place] 00 :00 Medical Branch furosemide 2021-0 2021- No [id number] Take lasix [facility] (LASIX) 40 5-31 10-05 40 mg BID ity of mg tablet 00:00: 00:00 [place] 00 :00 Medical Branch gabapentin 2021-0 2021- No [id number] 600mg Take 1 [facility] 600 mg 04-03 tablet by ity of tablet 00:00: 00:00 mouth 3 [place] 00 :00 (three) Medical times Branch daily. allopurinoL 2021-0 2021- No [id number] 100mg Take 1 [facility] 100 mg 04-0305 tablet by ity of tablet 00:00: 00:00 mouth [place] 00 :00 daily. Medical Branch blood sugar 2021-0 Yes [id number] CHECK [facility] diagnostic 5-19 BLOOD ity of (ONETOUCH 00:00: GLUCOSE [place] ULTRA TEST) 00 FOUR TIMES Me dical strip DAILY Branch blood sugar 2021-0 Yes [id number] CHECK [facility] diagnostic 5-19 BLOOD ity of (ONETOUCH 00:00: GLUCOSE [place] ULTRA TEST) 00 FOUR TIMES Me dical strip DAILY Branch blood sugar 2021-0 Yes [id number] CHECK [facility] diagnostic 5-19 BLOOD ity of (ONETOUCH 00:00: GLUCOSE [place] ULTRA TEST) 00 FOUR TIMES Me dical strip DAILY Branch blood sugar 2021-0 Yes [id number] CHECK [facility] diagnostic 5-19 BLOOD ity of (ONETOUCH 00:00: GLUCOSE [place] ULTRA TEST) 00 FOUR TIMES Me dical strip DAILY Branch blood sugar 2021- Yes [id number] CHECK [facility] diagnostic 5-19 BLOOD ity of (ONETOUCH 00:00: GLUCOSE [place] ULTRA TEST) 00 FOUR TIMES Me dical strip DAILY Branch blood sugar 2-0 Yes [id number] CHECK [facility] diagnostic 5-19 BLOOD ity of (ONETOUCH 00:00: GLUCOSE [place] ULTRA TEST) 00 FOUR TIMES Me dical strip DAILY Branch blood sugar 2-0 Yes [id number] CHECK [facility] diagnostic 5-19 BLOOD ity of (ONETOUCH 00:00: GLUCOSE [place] ULTRA TEST) 00 FOUR TIMES Me dical strip DAILY Branch blood sugar 2-0 Yes [id number] CHECK [facility] diagnostic 5-19 BLOOD ity of (ONETOUCH 00:00: GLUCOSE [place] ULTRA TEST) 00 FOUR TIMES Me dical strip DAILY Branch blood sugar 2-0 Yes [id number] CHECK [facility] diagnostic 5-19 BLOOD ity of (ONETOUCH 00:00: GLUCOSE [place] ULTRA TEST) 00 FOUR TIMES Me dical strip DAILY Branch blood sugar 2-0 Yes [id number] CHECK [facility] diagnostic 5-19 BLOOD ity of (ONETOUCH 00:00: GLUCOSE [place] ULTRA TEST) 00 FOUR TIMES Me dical strip DAILY Branch blood sugar 2-0 Yes [id number] CHECK [facility] diagnostic 5-19 BLOOD ity of (ONETOUCH 00:00: GLUCOSE [place] ULTRA TEST) 00 FOUR TIMES Me dical strip DAILY Branch blood sugar 2-0 Yes [id number] CHECK [facility] diagnostic 5-19 BLOOD ity of (ONETOUCH 00:00: GLUCOSE [place] ULTRA TEST) 00 FOUR TIMES Me dical strip DAILY [facility] blood sugar 2-0 Yes [id number] CHECK [facility] 5-19 BLOOD ity of (ONETOUCH 00:00: GLUCOSE [place] ULTRA TEST) 00 FOUR TIMES Me dical strip DAILY [facility] blood sugar 2022-0 Yes [id number] CHECK [facility] diagnostic 5-19 BLOOD ity of (ONETOUCH 00:00: GLUCOSE [place] ULTRA TEST) 00 FOUR TIMES Me dical strip DAILY [facility] blood sugar 2022-0 Yes [id number] CHECK [facility] diagnostic 5-19 BLOOD ity of (ONETOUCH 00:00: GLUCOSE [place] ULTRA TEST) 00 FOUR TIMES Me dical strip DAILY [facility] blood sugar 2022-0 Yes [id number] CHECK [facility] diagnostic 5-19 BLOOD ity of (ONETOUCH 00:00: GLUCOSE [place] ULTRA TEST) 00 FOUR TIMES Me dical strip DAILY [facility] blood sugar 2-0 Yes [id number] CHECK [facility] diagnostic 5-19 BLOOD ity of (ONETOUCH 00:00: GLUCOSE [place] ULTRA TEST) 00 FOUR TIMES Me dical strip DAILY [facility] blood sugar 2-0 Yes [id number] CHECK [facility] diagnostic 5-19 BLOOD ity of (ONETOUCH 00:00: GLUCOSE [place] ULTRA TEST) 00 FOUR TIMES Me dical strip DAILY [facility] blood sugar 2021-0 Yes [id number] CHECK [facility] diagnostic 5-19 BLOOD ity of (ONETOUCH 00:00: GLUCOSE [place] ULTRA TEST) 00 FOUR TIMES Me dical strip DAILY [facility] blood sugar 2021-0 Yes [id number] CHECK [facility] diagnostic 5-19 BLOOD ity of (ONETOUCH 00:00: GLUCOSE [place] ULTRA TEST) 00 FOUR TIMES Me dical strip DAILY [facility] blood sugar 2021-0 Yes [id number] CHECK [facility] diagnostic 5-19 BLOOD ity of (ONETOUCH 00:00: GLUCOSE [place] ULTRA TEST) 00 FOUR TIMES Me dical strip DAILY [facility] blood sugar 2021-0 Yes [id number] CHECK [facility] diagnostic 5-19 BLOOD ity of (ONETOUCH 00:00: GLUCOSE [place] ULTRA TEST) 00 FOUR TIMES Me dical strip DAILY [facility] blood sugar 2-0 Yes [id number] CHECK [facility] diagnostic 5-19 BLOOD ity of (ONETOUCH 00:00: GLUCOSE [place] ULTRA TEST) 00 FOUR TIMES Me dical strip DAILY [facility] blood sugar 2-0 Yes [id number] CHECK [facility] diagnostic 5-19 BLOOD ity of (ONETOUCH 00:00: GLUCOSE [place] ULTRA TEST) 00 FOUR TIMES Me dical strip DAILY [facility] blood sugar 2-0 Yes [id number] CHECK [facility] diagnostic 5-19 BLOOD ity of (ONETOUCH 00:00: GLUCOSE [place] ULTRA TEST) 00 FOUR TIMES Me dical strip DAILY [facility] blood sugar 2-0 Yes [id number] CHECK [facility] diagnostic 5-19 BLOOD ity of (ONETOUCH 00:00: GLUCOSE [place] ULTRA TEST) 00 FOUR TIMES Me dical strip DAILY [facility] blood sugar 2-0 Yes [id number] CHECK [facility] diagnostic 5-19 BLOOD ity of (ONETOUCH 00:00: GLUCOSE [place] ULTRA TEST) 00 FOUR TIMES Me dical strip DAILY [facility] blood sugar 2-0 Yes [id number] CHECK [facility] diagnostic 5-19 BLOOD ity of (ONETOUCH 00:00: GLUCOSE [place] ULTRA TEST) 00 FOUR TIMES Me dical strip DAILY [facility] blood sugar 2-0 Yes [id number] CHECK [facility] diagnostic 5-19 BLOOD ity of (ONETOUCH 00:00: GLUCOSE [place] ULTRA TEST) 00 FOUR TIMES Me dical strip DAILY [facility] blood sugar 2-0 Yes [id number] CHECK [facility] diagnostic 5-19 BLOOD ity of (ONETOUCH 00:00: GLUCOSE [place] ULTRA TEST) 00 FOUR TIMES Me dical strip DAILY [facility] blood sugar 2-0 Yes [id number] CHECK [facility] diagnostic 5-19 BLOOD ity of (ONETOUCH 00:00: GLUCOSE [place] ULTRA TEST) 00 FOUR TIMES Me dical strip DAILY [facility] blood sugar 2-0 Yes [id number] CHECK [facility] diagnostic 5-19 BLOOD ity of (ONETOUCH 00:00: GLUCOSE [place] ULTRA TEST) 00 FOUR TIMES Me dical strip DAILY [facility] blood sugar 2-0 Yes [id number] CHECK [facility] diagnostic 5-19 BLOOD ity of (ONETOUCH 00:00: GLUCOSE [place] ULTRA TEST) 00 FOUR TIMES Me dical strip DAILY [facility] blood sugar 2-0 Yes [id number] CHECK [facility] diagnostic 5-19 BLOOD ity of (ONETOUCH 00:00: GLUCOSE [place] ULTRA TEST) 00 FOUR TIMES Me dical strip DAILY [facility] blood sugar 2-0 Yes [id number] CHECK [facility] diagnostic 5-19 BLOOD ity of (ONETOUCH 00:00: GLUCOSE [place] ULTRA TEST) 00 FOUR TIMES Me dical strip DAILY [facility] blood sugar 2-0 Yes [id number] CHECK [facility] diagnostic 5-19 BLOOD ity of (ONETOUCH 00:00: GLUCOSE [place] ULTRA TEST) 00 FOUR TIMES Me dical strip DAILY [facility] blood sugar 2022-0 Yes [id number] CHECK [facility] diagnostic 5-19 BLOOD ity of (ONETOUCH 00:00: GLUCOSE [place] ULTRA TEST) 00 FOUR TIMES Me dical strip DAILY [facility] blood sugar 2022-0 Yes [id number] CHECK [facility] diagnostic 5-19 BLOOD ity of (ONETOUCH 00:00: GLUCOSE [place] ULTRA TEST) 00 FOUR TIMES Me dical strip DAILY [facility] blood sugar 2022-0 Yes [id number] CHECK [facility] diagnostic 5-19 BLOOD ity of (ONETOUCH 00:00: GLUCOSE [place] ULTRA TEST) 00 FOUR TIMES Me dical strip DAILY [facility] blood sugar 2022-0 Yes [id number] CHECK [facility] diagnostic 5-19 BLOOD ity of (ONETOUCH 00:00: GLUCOSE [place] ULTRA TEST) 00 FOUR TIMES Me dical strip DAILY [facility] blood sugar 2-0 Yes [id number] CHECK [facility] diagnostic 5-19 BLOOD ity of (ONETOUCH 00:00: GLUCOSE [place] ULTRA TEST) 00 FOUR TIMES Me dical strip DAILY [facility] blood sugar 2-0 Yes [id number] CHECK [facility] diagnostic 5-19 BLOOD ity of (ONETOUCH 00:00: GLUCOSE [place] ULTRA TEST) 00 FOUR TIMES Me dical strip DAILY [facility] blood sugar 2021-0 Yes [id number] CHECK [facility] diagnostic 5-19 BLOOD ity of (ONETOUCH 00:00: GLUCOSE [place] ULTRA TEST) 00 FOUR TIMES Me dical strip DAILY [facility] blood sugar 2021-0 Yes [id number] CHECK [facility] diagnostic 5-19 BLOOD ity of (ONETOUCH 00:00: GLUCOSE [place] ULTRA TEST) 00 FOUR TIMES Me dical strip DAILY [facility] blood sugar 2021-0 Yes [id number] CHECK [facility] diagnostic 5-19 BLOOD ity of (ONETOUCH 00:00: GLUCOSE [place] ULTRA TEST) 00 FOUR TIMES Me dical strip DAILY [facility] blood sugar 2-0 Yes [id number] CHECK [facility] diagnostic 5-19 BLOOD ity of (ONETOUCH 00:00: GLUCOSE [place] ULTRA TEST) 00 FOUR TIMES Me dical strip DAILY [facility] blood sugar 2-0 Yes [id number] CHECK [facility] diagnostic 5-19 BLOOD ity of (ONETOUCH 00:00: GLUCOSE [place] ULTRA TEST) 00 FOUR TIMES Me dical strip DAILY [facility] blood sugar 2-0 Yes [id number] CHECK [facility] diagnostic 5-19 BLOOD ity of (ONETOUCH 00:00: GLUCOSE [place] ULTRA TEST) 00 FOUR TIMES Me dical strip DAILY [facility] blood sugar 2-0 Yes [id number] CHECK [facility] diagnostic 5-19 BLOOD ity of (ONETOUCH 00:00: GLUCOSE [place] ULTRA TEST) 00 FOUR TIMES Me dical strip DAILY [facility] blood sugar 2-0 Yes [id number] CHECK [facility] diagnostic 5-19 BLOOD ity of (ONETOUCH 00:00: GLUCOSE [place] ULTRA TEST) 00 FOUR TIMES Me dical strip DAILY [facility] blood sugar 2-0 Yes [id number] CHECK [facility] diagnostic 5-19 BLOOD ity of (ONETOUCH 00:00: GLUCOSE [place] ULTRA TEST) 00 FOUR TIMES Me dical strip DAILY [facility] blood sugar 2-0 Yes [id number] CHECK [facility] diagnostic 5-19 BLOOD ity of (ONETOUCH 00:00: GLUCOSE [place] ULTRA TEST) 00 FOUR TIMES Me dical strip DAILY [facility] blood sugar 2-0 Yes [id number] CHECK [facility] diagnostic 5-19 BLOOD ity of (ONETOUCH 00:00: GLUCOSE [place] ULTRA TEST) 00 FOUR TIMES Me dical strip DAILY [facility] blood sugar 2-0 Yes [id number] CHECK [facility] diagnostic 5-19 BLOOD ity of (ONETOUCH 00:00: GLUCOSE [place] ULTRA TEST) 00 FOUR TIMES Me dical strip DAILY [facility] blood sugar 2-0 Yes [id number] CHECK [facility] diagnostic 5-19 BLOOD ity of (ONETOUCH 00:00: GLUCOSE [place] ULTRA TEST) 00 FOUR TIMES Me dical strip DAILY [facility] blood sugar 2-0 Yes [id number] CHECK [facility] diagnostic 5-19 BLOOD ity of (ONETOUCH 00:00: GLUCOSE [place] ULTRA TEST) 00 FOUR TIMES Me dical strip DAILY [facility] blood sugar 2-0 Yes [id number] CHECK [facility] diagnostic 5-19 BLOOD ity of (ONETOUCH 00:00: GLUCOSE [place] ULTRA TEST) 00 FOUR TIMES Me dical strip DAILY [facility] blood sugar 2-0 Yes [id number] CHECK [facility] diagnostic 5-19 BLOOD ity of (ONETOUCH 00:00: GLUCOSE [place] ULTRA TEST) 00 FOUR TIMES Me dical strip DAILY [facility] blood sugar 2-0 Yes [id number] CHECK [facility] diagnostic 5-19 BLOOD ity of (ONETOUCH 00:00: GLUCOSE [place] ULTRA TEST) 00 FOUR TIMES Me dical strip DAILY [facility] blood sugar 2-0 Yes [id number] CHECK [facility] diagnostic 5-19 BLOOD ity of (ONETOUCH 00:00: GLUCOSE [place] ULTRA TEST) 00 FOUR TIMES Me dical strip DAILY [facility] blood sugar 2-0 Yes [id number] CHECK [facility] diagnostic 5-19 BLOOD ity of (ONETOUCH 00:00: GLUCOSE [place] ULTRA TEST) 00 FOUR TIMES Me dical strip DAILY [facility] blood sugar 2-0 Yes [id number] CHECK [facility] diagnostic 5-19 BLOOD ity of (ONETOUCH 00:00: GLUCOSE [place] ULTRA TEST) 00 FOUR TIMES Me dical strip DAILY [facility] blood sugar 2-0 Yes [id number] CHECK [facility] diagnostic 5-19 BLOOD ity of (ONETOUCH 00:00: GLUCOSE [place] ULTRA TEST) 00 FOUR TIMES Me dical strip DAILY [facility] blood sugar 2021-0 Yes [id number] CHECK [facility] diagnostic 5-19 BLOOD ity of (ONETOUCH 00:00: GLUCOSE [place] ULTRA TEST) 00 FOUR TIMES Me dical strip DAILY [facility] blood sugar 2021-0 Yes [id number] CHECK [facility] diagnostic 5-19 BLOOD ity of (ONETOUCH 00:00: GLUCOSE [place] ULTRA TEST) 00 FOUR TIMES Me dical strip DAILY [facility] blood sugar 2021-0 Yes [id number] CHECK [facility] diagnostic 5-19 BLOOD ity of (ONETOUCH 00:00: GLUCOSE [place] ULTRA TEST) 00 FOUR TIMES Me dical strip DAILY [facility] blood sugar 2021-0 Yes [id number] CHECK [facility] diagnostic 5-19 BLOOD ity of (ONETOUCH 00:00: GLUCOSE [place] ULTRA TEST) 00 FOUR TIMES Me dical strip DAILY [facility] blood sugar 2021-0 Yes [id number] CHECK [facility] diagnostic 5-19 BLOOD ity of (ONETOUCH 00:00: GLUCOSE [place] ULTRA TEST) 00 FOUR TIMES Me dical strip DAILY [facility] blood sugar 2021-0 2023- No [id number] CHECK [facility] diagnostic 5-19 06-28 BLOOD ity of (ONETOUCH 00:00: 00:00 [place]TRA TEST[place] 00 :00 FOUR TIMES Me dical strip DAILY [facility] FLUTICASONE 2021-0 Yes [id number] SHAKE [facility] PROPIONATE 5-18 LIQUID AND ity of 50 00:00: USE 2 [place] mcg/actuati 00 SPRAYS IN Med ical on nasal EACH [facility] spray NOSTRIL EVERY DAY FLUTICASONE 2021-0 Yes [id number] SHAKE [facility] PROPIONATE 5-18 LIQUID AND ity of 50 00:00: USE 2 [place] mcg/actuati 00 SPRAYS IN Med ical on nasal EACH [facility] spray NOSTRIL EVERY DAY FLUTICASONE 2021-0 Yes [id number] SHAKE [facility] PROPIONATE 5-18 LIQUID AND ity of 50 00:00: USE 2 [place] mcg/actuati 00 SPRAYS IN Med ical on nasal EACH [facility] spray NOSTRIL EVERY DAY FLUTICASONE 2021-0 Yes [id number] SHAKE [facility] PROPIONATE 5-18 LIQUID AND ity of 50 00:00: USE 2 [place] mcg/actuati 00 SPRAYS IN Med ical on nasal EACH [facility] spray NOSTRIL EVERY DAY FLUTICASONE Yes [id number] SHAKE [facility] PROPIONATE 5-18 LIQUID AND ity of 50 00:00: USE 2 [place] mcg/actuati 00 SPRAYS IN Med ical on nasal EACH [facility] spray NOSTRIL EVERY DAY FLUTICASONE 0 Yes [id number] SHAKE [facility] PROPIONATE 5-18 LIQUID AND ity of 50 00:00: USE 2 [place] mcg/actuati 00 SPRAYS IN Med ical on nasal EACH [facility] spray NOSTRIL EVERY DAY FLUTICASONE Yes [id number] SHAKE [facility] PROPIONATE 5-18 LIQUID AND ity of 50 00:00: USE 2 [place] mcg/actuati 00 SPRAYS IN Med ical on nasal EACH [facility] spray NOSTRIL EVERY DAY FLUTICASONE Yes [id number] SHAKE [facility] PROPIONATE 5-18 LIQUID AND ity of 50 00:00: USE 2 [place] mcg/actuati 00 SPRAYS IN Med ical on nasal EACH [facility] spray NOSTRIL EVERY DAY FLUTICASONE 0 Yes [id number] SHAKE [facility] PROPIONATE 5-18 LIQUID AND ity of 50 00:00: USE 2 [place] mcg/actuati 00 SPRAYS IN Med ical on nasal EACH Branch spray NOSTRIL EVERY DAY FLUTICASONE 0 Yes [id number] SHAKE [facility] PROPIONATE 5-18 LIQUID AND ity of 50 00:00: USE 2 [place] mcg/actuati 00 SPRAYS IN Med ical on nasal EACH [facility] spray NOSTRIL EVERY DAY FLUTICASONE 0 Yes [id number] SHAKE [facility] PROPIONATE 5-18 LIQUID AND ity of 50 00:00: USE 2 [place] mcg/actuati 00 SPRAYS IN Med ical on nasal EACH [facility] spray NOSTRIL EVERY DAY FLUTICASONE 0 Yes [id number] SHAKE [facility] PROPIONATE 5-18 LIQUID AND ity of 50 00:00: USE 2 [place] mcg/actuati 00 SPRAYS IN Med ical on nasal EACH [facility] spray NOSTRIL EVERY DAY FLUTICASONE 0 Yes [id number] SHAKE [facility] PROPIONATE 5-18 LIQUID AND ity of 50 00:00: USE 2 [place] mcg/actuati 00 SPRAYS IN Med ical on nasal EACH [facility] spray NOSTRIL EVERY DAY FLUTICASONE Yes [id number] SHAKE [facility] PROPIONATE 5-18 LIQUID AND ity of 50 00:00: USE 2 [place] mcg/actuati 00 SPRAYS IN Med ical on nasal EACH Branch spray NOSTRIL EVERY DAY FLUTICASONE Yes [id number] SHAKE [facility] PROPIONATE 5-18 LIQUID AND ity of 50 00:00: USE 2 [place] mcg/actuati 00 SPRAYS IN Med ical on nasal EACH Branch spray NOSTRIL EVERY DAY FLUTICASONE Yes [id number] SHAKE [facility] PROPIONATE 5-18 LIQUID AND ity of 50 00:00: USE 2 [place] mcg/actuati 00 SPRAYS IN Med ical on nasal EACH Branch spray NOSTRIL EVERY DAY FLUTICASONE Yes [id number] SHAKE [facility] PROPIONATE 5-18 LIQUID AND ity of 50 00:00: USE 2 [place] mcg/actuati 00 SPRAYS IN Med ical on nasal EACH Branch spray NOSTRIL EVERY DAY FLUTICASONE 2021- No [id number] SHAKE [facility] PROPIONATE 5-18 12-29 LIQUID AND it y of 50 00:00: 00:00 USE 2 [place] mcg/actuati 00 :00 SPRAYS IN Med ical on nasal EACH Branch spray NOSTRIL EVERY DAY BUDESONIDE- Yes [id number] INHALE 2 [facility] FORMOTEROL 5-11 PUFFS BY ity o f 160-4.5 00:00: MOUTH [place] mcg/actuati 00 TWICE Medical on inhaler DAILY [facility] BUDESONIDE- Yes [id number] INHALE 2 [facility] FORMOTEROL 5-11 PUFFS BY ity o f 160-4.5 00:00: MOUTH [place] mcg/actuati 00 TWICE Medical on inhaler DAILY [facility] BUDESONIDE- 0 Yes [id number] INHALE 2 [facility] FORMOTEROL 5-11 PUFFS BY ity o f 160-4.5 00:00: MOUTH [place] mcg/actuati 00 TWICE Medical on inhaler DAILY [facility] BUDESONIDE- 0 Yes [id number] INHALE 2 [facility] FORMOTEROL 5-11 PUFFS BY ity o f 160-4.5 00:00: MOUTH [place] mcg/actuati 00 TWICE Medical on inhaler DAILY [facility] BUDESONIDE- 2022-0 Yes [id number] INHALE 2 [facility] FORMOTEROL 5-11 PUFFS BY ity o f 160-4.5 00:00: MOUTH [place] mcg/actuati 00 TWICE Medical on inhaler DAILY [facility] BUDESONIDE- 2021-0 Yes [id number] INHALE 2 [facility] FORMOTEROL 5-11 PUFFS BY ity o f 160-4.5 00:00: MOUTH [place] mcg/actuati 00 TWICE Medical on inhaler DAILY [facility] BUDESONIDE- 2021-0 Yes [id number] INHALE 2 [facility] FORMOTEROL 5-11 PUFFS BY ity o f 160-4.5 00:00: MOUTH [place] mcg/actuati 00 TWICE Medical on inhaler DAILY [facility] BUDESONIDE- 2021-0 Yes [id number] INHALE 2 [facility] FORMOTEROL 5-11 PUFFS BY ity o f 160-4.5 00:00: MOUTH [place] mcg/actuati 00 TWICE Medical on inhaler DAILY [facility] BUDESONIDE- 2021-0 Yes [id number] INHALE 2 [facility] FORMOTEROL 5-11 PUFFS BY ity o f 160-4.5 00:00: MOUTH [place] mcg/actuati 00 TWICE Medical on inhaler DAILY [facility] BUDESONIDE- 2021-0 Yes [id number] INHALE 2 [facility] FORMOTEROL 5-11 PUFFS BY ity o f 160-4.5 00:00: MOUTH [place] mcg/actuati 00 TWICE Medical on inhaler DAILY [facility] BUDESONIDE- 2021-0 Yes [id number] INHALE 2 [facility] FORMOTEROL 5-11 PUFFS BY ity o f 160-4.5 00:00: MOUTH [place] mcg/actuati 00 TWICE Medical on inhaler DAILY [facility] BUDESONIDE- 2021-0 Yes [id number] INHALE 2 [facility] FORMOTEROL 5-11 PUFFS BY ity o f 160-4.5 00:00: MOUTH [place] mcg/actuati 00 TWICE Medical on inhaler DAILY [facility] BUDESONIDE- 2021-0 Yes [id number] INHALE 2 [facility] FORMOTEROL 5-11 PUFFS BY ity o f 160-4.5 00:00: MOUTH [place] mcg/actuati 00 TWICE Medical on inhaler DAILY [facility] BUDESONIDE- 2021-0 Yes [id number] INHALE 2 [facility] FORMOTEROL 5-11 PUFFS BY ity o f 160-4.5 00:00: MOUTH [place] mcg/actuati 00 TWICE Medical on inhaler DAILY [facility] BUDESONIDE- 2021-0 Yes [id number] INHALE 2 [facility] FORMOTEROL 5-11 PUFFS BY ity o f 160-4.5 00:00: MOUTH [place] mcg/actuati 00 TWICE Medical on inhaler DAILY [facility] BUDESONIDE- 2021-0 Yes [id number] INHALE 2 [facility] FORMOTEROL 5-11 PUFFS BY ity o f 160-4.5 00:00: MOUTH [place] mcg/actuati 00 TWICE Medical on inhaler DAILY [facility] BUDESONIDE- 2021-0 Yes [id number] INHALE 2 [facility] FORMOTEROL 5-11 PUFFS BY ity o f 160-4.5 00:00: MOUTH [place] mcg/actuati 00 TWICE Medical on inhaler DAILY [facility] BUDESONIDE- 2021-0 Yes [id number] INHALE 2 [facility] FORMOTEROL 5-11 PUFFS BY ity o f 160-4.5 00:00: MOUTH [place] mcg/actuati 00 TWICE Medical on inhaler DAILY [facility] BUDESONIDE- 2021-0 Yes [id number] INHALE 2 [facility] FORMOTEROL 5-11 PUFFS BY ity o f 160-4.5 00:00: MOUTH [place] mcg/actuati 00 TWICE Medical on inhaler DAILY [facility] BUDESONIDE- 2021-0 Yes [id number] INHALE 2 [facility] FORMOTEROL 5-11 PUFFS BY ity o f 160-4.5 00:00: MOUTH [place] mcg/actuati 00 TWICE Medical on inhaler DAILY [facility] BUDESONIDE- 2021-0 Yes [id number] INHALE 2 [facility] FORMOTEROL 5-11 PUFFS BY ity o f 160-4.5 00:00: MOUTH [place] mcg/actuati 00 TWICE Medical on inhaler DAILY [facility] BUDESONIDE- 2021-0 Yes [id number] INHALE 2 [facility] FORMOTEROL 5-11 PUFFS BY ity o f 160-4.5 00:00: MOUTH [place] mcg/actuati 00 TWICE Medical on inhaler DAILY [facility] BUDESONIDE- 2021-0 Yes [id number] INHALE 2 [facility] FORMOTEROL 5-11 PUFFS BY ity o f 160-4.5 00:00: MOUTH [place] mcg/actuati 00 TWICE Medical on inhaler DAILY [facility] BUDESONIDE- 2021-0 Yes [id number] INHALE 2 [facility] FORMOTEROL 5-11 PUFFS BY ity o f 160-4.5 00:00: MOUTH [place] mcg/actuati 00 TWICE Medical on inhaler DAILY [facility] BUDESONIDE- 2021-0 Yes [id number] INHALE 2 [facility] FORMOTEROL 5-11 PUFFS BY ity o f 160-4.5 00:00: MOUTH [place] mcg/actuati 00 TWICE Medical on inhaler DAILY [facility] BUDESONIDE- 2021-0 Yes [id number] INHALE 2 [facility] FORMOTEROL 5-11 PUFFS BY ity o f 160-4.5 00:00: MOUTH [place] mcg/actuati 00 TWICE Medical on inhaler DAILY [facility] BUDESONIDE- 2021-0 Yes [id number] INHALE 2 [facility] FORMOTEROL 5-11 PUFFS BY ity o f 160-4.5 00:00: MOUTH [place] mcg/actuati 00 TWICE Medical on inhaler DAILY [facility] BUDESONIDE- 2021-0 Yes [id number] INHALE 2 [facility] FORMOTEROL 5-11 PUFFS BY ity o f 160-4.5 00:00: MOUTH [place] mcg/actuati 00 TWICE Medical on inhaler DAILY [facility] BUDESONIDE- 2021-0 Yes [id number] INHALE 2 [facility] FORMOTEROL 5-11 PUFFS BY ity o f 160-4.5 00:00: MOUTH [place] mcg/actuati 00 TWICE Medical on inhaler DAILY [facility] BUDESONIDE- 2021-0 Yes [id number] INHALE 2 [facility] FORMOTEROL 5-11 PUFFS BY ity o f 160-4.5 00:00: MOUTH [place] mcg/actuati 00 TWICE Medical on inhaler DAILY [facility] BUDESONIDE- 2021-0 Yes [id number] INHALE 2 [facility] FORMOTEROL 5-11 PUFFS BY ity o f 160-4.5 00:00: MOUTH [place] mcg/actuati 00 TWICE Medical on inhaler DAILY [facility] BUDESONIDE- 2021-0 Yes [id number] INHALE 2 [facility] FORMOTEROL 5-11 PUFFS BY ity o f 160-4.5 00:00: MOUTH [place] mcg/actuati 00 TWICE Medical on inhaler DAILY [facility] BUDESONIDE- 2021-0 Yes [id number] INHALE 2 [facility] FORMOTEROL 5-11 PUFFS BY ity o f 160-4.5 00:00: MOUTH [place] mcg/actuati 00 TWICE Medical on inhaler DAILY [facility] BUDESONIDE- 2021-0 Yes [id number] INHALE 2 [facility] FORMOTEROL 5-11 PUFFS BY ity o f 160-4.5 00:00: MOUTH [place] mcg/actuati 00 TWICE Medical on inhaler DAILY [facility] BUDESONIDE- 2021-0 Yes [id number] INHALE 2 [facility] FORMOTEROL 5-11 PUFFS BY ity o f 160-4.5 00:00: MOUTH [place] mcg/actuati 00 TWICE Medical on inhaler DAILY Branch BUDESONIDE- 2021-0 Yes [id number] INHALE 2 [facility] FORMOTEROL 5-11 PUFFS BY ity o f 160-4.5 00:00: MOUTH [place] mcg/actuati 00 TWICE Medical on inhaler DAILY [facility] BUDESONIDE- 2021-0 Yes [id number] INHALE 2 [facility] FORMOTEROL 5-11 PUFFS BY ity o f 160-4.5 00:00: MOUTH [place] mcg/actuati 00 TWICE Medical on inhaler DAILY [facility] BUDESONIDE- 2021-0 Yes [id number] INHALE 2 [facility] FORMOTEROL 5-11 PUFFS BY ity o f 160-4.5 00:00: MOUTH [place] mcg/actuati 00 TWICE Medical on inhaler DAILY Branch BUDESONIDE- 2021-0 Yes [id number] INHALE 2 [facility] FORMOTEROL 5-11 PUFFS BY ity o f 160-4.5 00:00: MOUTH [place] mcg/actuati 00 TWICE Medical on inhaler DAILY [facility] BUDESONIDE- 2021-0 Yes [id number] INHALE 2 [facility] FORMOTEROL 5-11 PUFFS BY ity o f 160-4.5 00:00: MOUTH [place] mcg/actuati 00 TWICE Medical on inhaler DAILY Branch BUDESONIDE- 2021-0 Yes [id number] INHALE 2 [facility] FORMOTEROL 5-11 PUFFS BY ity o f 160-4.5 00:00: MOUTH [place] mcg/actuati 00 TWICE Medical on inhaler DAILY Branch BUDESONIDE- 2021-0 Yes [id number] INHALE 2 [facility] FORMOTEROL 5-11 PUFFS BY ity o f 160-4.5 00:00: MOUTH [place] mcg/actuati 00 TWICE Medical on inhaler DAILY Branch BUDESONIDE- 2021-0 Yes [id number] INHALE 2 [facility] FORMOTEROL 5-11 PUFFS BY ity o f 160-4.5 00:00: MOUTH [place] mcg/actuati 00 TWICE Medical on inhaler DAILY Branch BUDESONIDE- 2021-0 Yes [id number] INHALE 2 [facility] FORMOTEROL 5-11 PUFFS BY ity o f 160-4.5 00:00: MOUTH [place] mcg/actuati 00 TWICE Medical on inhaler DAILY Branch BUDESONIDE- 2021-0 Yes [id number] INHALE 2 [facility] FORMOTEROL 5-11 PUFFS BY ity o f 160-4.5 00:00: MOUTH [place] mcg/actuati 00 TWICE Medical on inhaler DAILY Branch BUDESONIDE- 2021-0 Yes [id number] INHALE 2 [facility] FORMOTEROL 5-11 PUFFS BY ity o f 160-4.5 00:00: MOUTH [place] mcg/actuati 00 TWICE Medical on inhaler DAILY Branch BUDESONIDE- 2021-0 Yes [id number] INHALE 2 [facility] FORMOTEROL 5-11 PUFFS BY ity o f 160-4.5 00:00: MOUTH [place] mcg/actuati 00 TWICE Medical on inhaler DAILY Branch BUDESONIDE- 2021-0 Yes [id number] INHALE 2 [facility] FORMOTEROL 5-11 PUFFS BY ity o f 160-4.5 00:00: MOUTH [place] mcg/actuati 00 TWICE Medical on inhaler DAILY Branch BUDESONIDE- 2021-0 Yes [id number] INHALE 2 [facility] FORMOTEROL 5-11 PUFFS BY ity o f 160-4.5 00:00: MOUTH [place] mcg/actuati 00 TWICE Medical on inhaler DAILY Branch BUDESONIDE- 2021-0 Yes [id number] INHALE 2 [facility] FORMOTEROL 5-11 PUFFS BY ity o f 160-4.5 00:00: MOUTH [place] mcg/actuati 00 TWICE Medical on inhaler DAILY Branch BUDESONIDE- 2021-0 Yes [id number] INHALE 2 [facility] FORMOTEROL 5-11 PUFFS BY ity o f 160-4.5 00:00: MOUTH [place] mcg/actuati 00 TWICE Medical on inhaler DAILY Branch BUDESONIDE- 2021-0 Yes [id number] INHALE 2 [facility] FORMOTEROL 5-11 PUFFS BY ity o f 160-4.5 00:00: MOUTH [place] mcg/actuati 00 TWICE Medical on inhaler DAILY Branch BUDESONIDE- 2021-0 Yes [id number] INHALE 2 [facility] FORMOTEROL 5-11 PUFFS BY ity o f 160-4.5 00:00: MOUTH [place] mcg/actuati 00 TWICE Medical on inhaler DAILY Branch BUDESONIDE- 2021-0 Yes [id number] INHALE 2 [facility] FORMOTEROL 5-11 PUFFS BY ity o f 160-4.5 00:00: MOUTH [place] mcg/actuati 00 TWICE Medical on inhaler DAILY Branch BUDESONIDE- 2021-0 Yes [id number] INHALE 2 [facility] FORMOTEROL 5-11 PUFFS BY ity o f 160-4.5 00:00: MOUTH [place] mcg/actuati 00 TWICE Medical on inhaler DAILY Branch BUDESONIDE- 2021-0 Yes [id number] INHALE 2 [facility] FORMOTEROL 5-11 PUFFS BY ity o f 160-4.5 00:00: MOUTH [place] mcg/actuati 00 TWICE Medical on inhaler DAILY Branch BUDESONIDE- 2021-0 Yes [id number] INHALE 2 [facility] FORMOTEROL 5-11 PUFFS BY ity o f 160-4.5 00:00: MOUTH [place] mcg/actuati 00 TWICE Medical on inhaler DAILY Branch BUDESONIDE- 2021-0 Yes [id number] INHALE 2 [facility] FORMOTEROL 5-11 PUFFS BY ity o f 160-4.5 00:00: MOUTH [place] mcg/actuati 00 TWICE Medical on inhaler DAILY Branch BUDESONIDE- 2021-0 Yes [id number] INHALE 2 [facility] FORMOTEROL 5-11 PUFFS BY ity o f 160-4.5 00:00: MOUTH [place] mcg/actuati 00 TWICE Medical on inhaler DAILY Branch BUDESONIDE- 2021-0 Yes [id number] INHALE 2 [facility] FORMOTEROL 5-11 PUFFS BY ity o f 160-4.5 00:00: MOUTH [place] mcg/actuati 00 TWICE Medical on inhaler DAILY Branch BUDESONIDE- 2021-0 Yes [id number] INHALE 2 [facility] FORMOTEROL 5-11 PUFFS BY ity o f 160-4.5 00:00: MOUTH [place] mcg/actuati 00 TWICE Medical on inhaler DAILY Branch BUDESONIDE- 2021-0 Yes [id number] INHALE 2 [facility] FORMOTEROL 5-11 PUFFS BY ity o f 160-4.5 00:00: MOUTH [place] mcg/actuati 00 TWICE Medical on inhaler DAILY Branch BUDESONIDE- 2021-0 Yes [id number] INHALE 2 [facility] FORMOTEROL 5-11 PUFFS BY ity o f 160-4.5 00:00: MOUTH [place] mcg/actuati 00 TWICE Medical on inhaler DAILY Branch BUDESONIDE- 2021-0 Yes [id number] INHALE 2 [facility] FORMOTEROL 5-11 PUFFS BY ity o f 160-4.5 00:00: MOUTH [place] mcg/actuati 00 TWICE Medical on inhaler DAILY [facility] BUDESONIDE- 2021-0 Yes [id number] INHALE 2 [facility] FORMOTEROL 5-11 PUFFS BY ity o f 160-4.5 00:00: MOUTH [place] mcg/actuati 00 TWICE Medical on inhaler DAILY [facility] BUDESONIDE- 2021-0 Yes [id number] INHALE 2 [facility] FORMOTEROL 5-11 PUFFS BY ity o f 160-4.5 00:00: MOUTH [place] mcg/actuati 00 TWICE Medical on inhaler DAILY [facility] BUDESONIDE- 2021-0 Yes [id number] INHALE 2 [facility] FORMOTEROL 5-11 PUFFS BY ity o f 160-4.5 00:00: MOUTH [place] mcg/actuati 00 TWICE Medical on inhaler DAILY [facility] BUDESONIDE- 2021-0 Yes [id number] INHALE 2 [facility] FORMOTEROL 5-11 PUFFS BY ity o f 160-4.5 00:00: MOUTH [place] mcg/actuati 00 TWICE Medical on inhaler DAILY [facility] BUDESONIDE- 2021-0 Yes [id number] INHALE 2 [facility] FORMOTEROL 5-11 PUFFS BY ity o f 160-4.5 00:00: MOUTH [place] mcg/actuati 00 TWICE Medical on inhaler DAILY [facility] BUDESONIDE- 2021-0 Yes [id number] INHALE 2 [facility] FORMOTEROL 5-11 PUFFS BY ity o f 160-4.5 00:00: MOUTH [place] mcg/actuati 00 TWICE Medical on inhaler DAILY Branch DULoxetine 2021-0 Yes [id number] 60mg Take 1 U nivers 60 mg 2-09 capsule by ity of capsule 00:00: mouth (two) Medical times Branch daily. DULoxetine 2021-0 Yes [id number] 60mg Take 1 [facility] nivers 60 mg 2-09 capsule by ity of capsule 00:00: mouth 2 (two) Medical times [facility] daily. DULoxetine 2021-0 Yes [id number] 60mg Take 1 [facility] nivers 60 mg 2-09 capsule by ity of capsule 00:00: mouth (two) Medical times Branch daily. DULoxetine 2021-0 Yes [id number] 60mg Take 1 [facility] 60 mg 2-09 capsule by [facility] capsule 00:00: mouth (two) Medical times Branch daily. DULoxetine 2021-0 Yes [id number] 60mg Take 1 [facility] 60 mg 2-09 capsule by ity of capsule 00:00: mouth (two) Medical times Branch daily. DULoxetine 2021-2021- No [id number] 60mg Take 1 [facility] 60 mg 12-13 [id number] capsule by ity o f capsule 00:00: 00:00 mouth 2 [place] 00 :00 (two) Medical times Branch daily. DULoxetine 2021-0 2021- No [id number] 60mg Take 1 [facility] 60 mg 12-13 [id number] capsule by ity o f capsule 00:00: 00:00 mouth 2 [place] 00 :00 (two) Medical times Branch daily. carvediloL 2021-0 Yes [id number] 25mg Take 1 [facility] 25 mg 2-04 tablet by ity of tablet 00:00: mouth (two) Medical times Branch daily. hydrALAZINE 2021-0 Yes [id number] 50mg Take 1 [facility] 50 mg 2-04 tablet by ity of tablet 00:00: mouth [place] (two) Medical times Branch daily. metFORMIN 2021-0 Yes [id number] 500mg Take 1 [facility] 500 mg 2-04 tablet by ity of tablet 00:00: mouth [place] (two) Medical times Branch daily with meals. diclofenac- 2021-0 Yes [id number] 1{tbl} Take 1 [facility] misoprostoL 2-04 9107 tablet by ity of 50-200 00:00: mouth 2 [place] mg-mcg per 00 (two) Medical tablet times Branch daily. carvediloL 2-0 Yes [id number] 25mg Take 1 [facility] 25 mg 2-04 tablet by ity of tablet 00:00: mouth 2 (two) Medical times Branch daily. hydrALAZINE 2021-0 Yes [id number] 50mg Take 1 [facility] 50 mg 2-04 tablet by ity of tablet 00:00: mouth 2 (two) Medical times Branch daily. metFORMIN 2021-0 Yes [id number] 500mg Take 1 [facility] 500 mg 2-04 tablet by ity of tablet 00:00: mouth (two) Medical times Branch daily with meals. diclofenac- 2021-0 Yes [id number] 1{tbl} Take 1 [facility] misoprostoL 2-04 9107 tablet by ity of 50-200 00:00: mouth 2 [place] mg-mcg per 00 (two) Medical tablet times Branch daily. carvediloL 2021-0 Yes [id number] 25mg Take 1 [facility] 25 mg 2-04 tablet by ity of tablet 00:00: mouth (two) Medical times Branch daily. hydrALAZINE 2021-0 Yes [id number] 50mg Take 1 [facility] 50 mg 2-04 tablet by ity of tablet 00:00: mouth (two) Medical times Branch daily. metFORMIN 2021-0 Yes [id number] 500mg Take 1 [facility] 500 mg 2-04 tablet by ity of tablet 00:00: mouth (two) Medical times Branch daily with meals. diclofenac- 2021-0 Yes [id number] 1{tbl} Take 1 [facility] misoprostoL 2-04 9107 tablet by ity of 50-200 00:00: mouth 2 [place] mg-mcg per 00 (two) Medical tablet times Branch daily. carvediloL 2-0 Yes [id number] 25mg Take 1 [facility] 25 mg 2-04 tablet by ity of tablet 00:00: mouth (two) Medical times Branch daily. hydrALAZINE 2-0 Yes [id number] 50mg Take 1 [facility] 50 mg 2-04 tablet by ity of tablet 00:00: mouth 2 (two) Medical times Branch daily. metFORMIN 2-0 Yes [id number] 500mg Take 1 [facility] 500 mg 2-04 tablet by ity of tablet 00:00: mouth 2 [place] 00 (two) Medical times Branch daily with meals. diclofenac- Yes [id number] 1{tbl} Take 1 [facility] misoprostoL 2-04 9107 tablet by ity of 50-200 00:00: mouth 2 [place] mg-mcg per 00 (two) Medical tablet times Branch daily. carvediloL Yes [id number] 25mg Take 1 [facility] 25 mg 2-04 tablet by ity of tablet 00:00: mouth 2 (two) Medical times Branch daily. hydrALAZINE Yes [id number] 50mg Take 1 [facility] 50 mg 2-04 tablet by ity of tablet 00:00: mouth 2 (two) Medical times Branch daily. metFORMIN Yes [id number] 500mg Take 1 [facility] 500 mg 2-04 tablet by ity of tablet 00:00: mouth 2 (two) Medical times Branch daily with meals. diclofenac- Yes [id number] 1{tbl} Take 1 [facility] misoprostoL 2-04 9107 tablet by ity of 50-200 00:00: mouth 2 [place] mg-mcg per 00 (two) Medical tablet times Branch daily. diclofenac- Yes [id number] 1{tbl} Take 1 [facility] misoprostoL 2-04 9107 tablet by ity of 50-200 00:00: mouth 2 [place] mg-mcg per 00 (two) Medical tablet times Branch daily. diclofenac- 0 Yes [id number] 1{tbl} Take 1 [facility] misoprostoL 2-04 9107 tablet by ity of 50-200 00:00: mouth 2 [place] mg-mcg per 00 (two) Medical tablet times Branch daily. diclofenac- 2021-0 Yes [id number] 1{tbl} Take 1 [facility] misoprostoL 2-04 9107 tablet by ity of 50-200 00:00: mouth 2 [place] mg-mcg per 00 (two) Medical tablet times Branch daily. diclofenac- 0 Yes [id number] 1{tbl} Take 1 [facility] misoprostoL 2-04 9107 tablet by ity of 50-200 00:00: mouth 2 [place] mg-mcg per 00 (two) Medical tablet times Branch daily. diclofenac- 2021-0 Yes [id number] 1{tbl} Take 1 [facility] misoprostoL 2-04 9107 tablet by ity of 50-200 00:00: mouth 2 [place] mg-mcg per 00 (two) Medical tablet times Branch daily. diclofenac- 2021-0 Yes [id number] 1{tbl} Take 1 [facility] misoprostoL 2-04 9107 tablet by ity of 50-200 00:00: mouth 2 [place] mg-mcg per 00 (two) Medical tablet times Branch daily. diclofenac- 2021-0 Yes [id number] 1{tbl} Take 1 [facility] misoprostoL 2-04 9107 tablet by ity of 50-200 00:00: mouth 2 [place] mg-mcg per 00 (two) Medical tablet times Branch daily. diclofenac- 2021-0 Yes [id number] 1{tbl} Take 1 [facility] misoprostoL 2-04 9107 tablet by ity of 50-200 00:00: mouth 2 [place] mg-mcg per 00 (two) Medical tablet times Branch daily. diclofenac- 2021-0 Yes [id number] 1{tbl} Take 1 [facility] misoprostoL 2-04 9107 tablet by ity of 50-200 00:00: mouth 2 [place] mg-mcg per 00 (two) Medical tablet times Branch daily. diclofenac- 2021-0 Yes [id number] 1{tbl} Take 1 [facility] misoprostoL 2-04 9107 tablet by ity of 50-200 00:00: mouth 2 [place] mg-mcg per 00 (two) Medical tablet times Branch daily. diclofenac- 2021-0 Yes [id number] 1{tbl} Take 1 [facility] misoprostoL 2-04 9107 tablet by ity of 50-200 00:00: mouth 2 [place] mg-mcg per 00 (two) Medical tablet times Branch daily. diclofenac- 2021-0 Yes [id number] 1{tbl} Take 1 [facility] misoprostoL 2-04 9107 tablet by ity of 50-200 00:00: mouth 2 [place] mg-mcg per 00 (two) Medical tablet times Branch daily. diclofenac- 2021-0 Yes [id number] 1{tbl} Take 1 [facility] misoprostoL 2-04 9107 tablet by ity of 50-200 00:00: mouth 2 [place] mg-mcg per 00 (two) Medical tablet times Branch daily. diclofenac- Yes [id number] 1{tbl} Take 1 [facility] misoprostoL 2-04 9107 tablet by ity of 50-200 00:00: mouth 2 [place] mg-mcg per 00 (two) Medical tablet times Branch daily. diclofenac- Yes [id number] 1{tbl} Take 1 [facility] misoprostoL 2-04 9107 tablet by ity of 50-200 00:00: mouth 2 [place] mg-mcg per 00 (two) Medical tablet times Branch daily. diclofenac- 2022- No [id number] 1{tbl} Take 1 [facility] misoprostoL 2-04 01-05 9107 tablet by it y of 50-200 00:00: 00:00 mouth 2 [place] mg-mcg per 00 :00 (two) Medical tablet times Branch daily. diclofenac- 2022- No [id number] 1{tbl} Take 1 [facility] misoprostoL 2-04 -05 9107 tablet by it y of 50-200 00:00: 00:00 mouth 2 [place] mg-mcg per 00 :00 (two) Medical tablet times Branch daily. diclofenac- 2022- No [id number] 1{tbl} Take 1 [facility] misoprostoL 2-04 01-05 9107 tablet by it y of 50-200 00:00: 00:00 mouth 2 [place] mg-mcg per 00 :00 (two) Medical tablet times Branch daily. diclofenac- 2022- No [id number] 1{tbl} Take 1 [facility] misoprostoL 2-04 -05 9107 tablet by it y of 50-200 00:00: 00:00 mouth 2 [place] mg-mcg per 00 :00 (two) Medical tablet times Branch daily. carvediloL 2021- No [id number] 25mg Take 1 [facility] 25 mg 2-04 10-05 tablet by ity of tablet 00:00: 00:00 mouth 2 [place] 00 :00 (two) Medical times Branch daily. hydrALAZINE 2021- No [id number] 50mg Take 1 [facility] 50 mg 2-04 10-05 tablet by ity of tablet 00:00: 00:00 mouth 2 [place] 00 :00 (two) Medical times Branch daily. metFORMIN 2021- No [id number] 500mg Take 1 [facility] 500 mg 2-04 10-05 tablet by ity of tablet 00:00: 00:00 mouth 2 [place] 00 :00 (two) Medical times Branch daily with meals. carvediloL 2021- No [id number] 25mg Take 1 [facility] 25 mg 2-04 10-05 tablet by ity of tablet 00:00: 00:00 mouth 2 [place] 00 :00 (two) Medical times Branch daily. hydrALAZINE 2021- No [id number] 50mg Take 1 [facility] 50 mg 2-04 10-05 tablet by ity of tablet 00:00: 00:00 mouth 2 [place] 00 :00 (two) Medical times Branch daily. metFORMIN 2021- No [id number] 500mg Take 1 [facility] 500 mg 2-04 10-05 tablet by ity of tablet 00:00: 00:00 mouth 2 [place] 00 :00 (two) Medical times Branch daily with meals. GLIMEPIRIDE 2021-0 Yes [id number] TAKE 1 [facility] 2 mg tablet 2-03 TABLET BY ity of 00:00: MOUTH [place] 00 TWICE Medical DAILY Branch GLIMEPIRIDE 2021-0 Yes [id number] TAKE 1 [facility] 2 mg tablet 2-03 TABLET BY ity of 00:00: MOUTH 00 TWICE Medical DAILY Branch GLIMEPIRIDE 2021-0 Yes [id number] TAKE 1 [facility] 2 mg tablet 2-03 TABLET BY ity of 00:00: MOUTH 00 TWICE Medical DAILY Branch GLIMEPIRIDE 2021-0 Yes [id number] TAKE 1 [facility] 2 mg tablet 2-03 TABLET BY ity of 00:00: MOUTH [place] 00 TWICE Medical DAILY Branch GLIMEPIRIDE 2021-0 Yes [id number] TAKE 1 [facility] 2 mg tablet 2-03 TABLET BY ity of 00:00: MOUTH 00 TWICE Medical DAILY Branch GLIMEPIRIDE 2021-0 2021- No [id number] TAKE 1 [facility] 2 mg tablet 2-03 10-05 TABLET BY it y of 00:00: 00:00 MOUTH [place] 00 :00 TWICE Medical DAILY Branch GLIMEPIRIDE 2021-0 2021- No [id number] TAKE 1 [facility] 2 mg tablet 2-03 10-05 TABLET BY it y of 00:00: 00:00 MOUTH [place] 00 :00 TWICE Medical DAILY Branch POTASSIUM 2020-11 Yes [id number] 10meq TAKE 1 [facility] CHLORIDE 10 2-08 TABLET BY ity of mEq CR 00:00: MOUTH [place] tablet 00 EVERY Medical SATURDAY, Branch SATURDAY, AND SATURDAY POTASSIUM 2020-11 Yes [id number] 10meq TAKE 1 [facility] CHLORIDE 10 2-08 TABLET BY ity of mEq CR 00:00: MOUTH [place] tablet 00 EVERY Medical SATURDAY, Branch SATURDAY, AND SATURDAY POTASSIUM 2020-11 Yes [id number] 10meq TAKE 1 [facility] CHLORIDE 10 2-08 TABLET BY ity of mEq CR 00:00: MOUTH [place] tablet 00 EVERY Medical SATURDAY, Branch SATURDAY, AND SATURDAY POTASSIUM 2020-11 Yes [id number] 10meq TAKE 1 [facility] CHLORIDE 10 2-08 TABLET BY ity of mEq CR 00:00: MOUTH [place] tablet 00 EVERY Medical SATURDAY, Branch SATURDAY, AND SATURDAY POTASSIUM 2020-11 Yes [id number] 10meq TAKE 1 [facility] CHLORIDE 10 2-08 TABLET BY ity of mEq CR 00:00: MOUTH [place] tablet 00 EVERY Medical SATURDAY, Branch SATURDAY, AND SATURDAY POTASSIUM 2020-11- No [id number] 10meq TAKE 1 [facility] CHLORIDE 10 2-08 10-05 TABLET BY it y of mEq CR 00:00: 00:00 MOUTH [place] tablet 00 :00 EVERY Medical SATURDAY, Branch SATURDAY, AND SATURDAY POTASSIUM 2020-11- No [id number] 10meq TAKE 1 [facility] CHLORIDE 10 2-08 10-05 TABLET BY it y of mEq CR 00:00: 00:00 MOUTH [place] tablet 00 :00 EVERY Medical SATURDAY, Branch SATURDAY, AND SATURDAY Miscellaneo 2020-11 Yes [id number] J40: Un [facility] 0-21 [facility] ity of Supply Kit 00:00: - Dispense [place] 00 # 1 [facility] Praful [facility] Respironic s (okay for alternativ e brand) for nebulizer treatment ipratropium 2020-11 Yes [id number] .5mg Inhale 2.5 [facility] 0.02 % 0-21 mL every 4 ity of nebulizer 00:00: (four) [place] solution 00 hours as Medical needed for Branch Wheezing or Shortness of Breath. albuterol 2020-11 Yes [id number] 2.5mg Inhale 3 [facility] 2.5 mg /3 0-21 mL every 4 ity of mL (0.083 00:00: (four) [place] %) 00 hours as Medical nebulizer needed for Bran ch solution Wheezing or Shortness of Breath. Miscellaneo 2020-11 Yes [id number] J40: Un [email or web address] 0-21 [place] ity of Supply Kit 00:00: - Dispense [place] 00 # 1 [facility] Respironic s (okay for alternativ e brand) for nebulizer treatment ipratropium 2020-11 Yes [id number] .5mg Inhale 2.5 [facility] 0.02 % 0-21 mL every 4 ity of nebulizer 00:00: (four) [place] solution 00 hours as Medical needed for Branch Wheezing or Shortness of Breath. albuterol 2020-11 Yes [id number] 2.5mg Inhale 3 [facility] 2.5 mg /3 0-21 mL every 4 ity of mL (0.083 00:00: (four) [place] %) 00 hours as Medical nebulizer needed for Bran ch solution Wheezing or Shortness of Breath. Miscellaneo 2020-11 Yes [id number] J40: Un [email or web address] 0-21 [place] ity of Supply Kit 00:00: - Dispense [place] 00 # 1 [facility] Respironic s (okay for alternativ e brand) for nebulizer treatment ipratropium 2020-11 Yes [id number] .5mg Inhale 2.5 [facility] 0.02 % 0-21 mL every 4 ity of nebulizer 00:00: (four) [place] solution 00 hours as Medical needed for Branch Wheezing or Shortness of Breath. albuterol 2020-11 Yes [id number] 2.5mg Inhale 3 [facility] 2.5 mg /3 0-21 mL every 4 ity of mL (0.083 00:00: (four) [place] %) 00 hours as Medical nebulizer needed for Bran ch solution Wheezing or Shortness of Breath. Miscellaneo 2020-11 Yes [id number] J40: Un [email or web address] 0-21 [place] ity of Supply Kit 00:00: - Dispense [place] 00 # 1 [facility] Respironic s (okay for alternativ e brand) for nebulizer treatment ipratropium 2020-11 Yes [id number] .5mg Inhale 2.5 [facility] 0.02 % 0-21 mL every 4 ity of nebulizer 00:00: (four) [place] solution 00 hours as Medical needed for Branch Wheezing or Shortness of Breath. albuterol 2020-11 Yes [id number] 2.5mg Inhale 3 [facility] 2.5 mg /3 0-21 mL every 4 ity of mL (0.083 00:00: (four) [place] %) 00 hours as Medical nebulizer needed for Bran ch solution Wheezing or Shortness of Breath. Miscellaneo 2020-11 Yes [id number] J40: Un [email or web address] 0-21 [place] ity of Supply Kit 00:00: - Dispense [place] 00 # 1 [facility] Respironic s (okay for alternativ e brand) for nebulizer treatment ipratropium 2020-11 Yes [id number] .5mg Inhale 2.5 [facility] 0.02 % 0-21 mL every 4 ity of nebulizer 00:00: (four) [place] solution 00 hours as Medical needed for Branch Wheezing or Shortness of Breath. albuterol 2020-11 Yes [id number] 2.5mg Inhale 3 [facility] 2.5 mg /3 0-21 mL every 4 ity of mL (0.083 00:00: (four) [place] %) 00 hours as Medical nebulizer needed for Bran ch solution Wheezing or Shortness of Breath. Miscellaneo 2020-11 Yes [id number] J40: Un [email or web address] 0-21 [place] ity of Supply Kit 00:00: - Dispense [place] 00 # 1 [facility] Respironic s (okay for alternativ e brand) for nebulizer treatment ipratropium 2020-11 Yes [id number] .5mg Inhale 2.5 [facility] 0.02 % 0-21 mL every 4 ity of nebulizer 00:00: (four) [place] solution 00 hours as Medical needed for Branch Wheezing or Shortness of Breath. albuterol 2020-11 Yes [id number] 2.5mg Inhale 3 [facility] 2.5 mg /3 0-21 mL every 4 ity of mL (0.083 00:00: (four) [place] %) 00 hours as Medical nebulizer needed for Bran ch solution Wheezing or Shortness of Breath. Miscellaneo 2020-11 Yes [id number] J40: Un [email or web address] 0-21 [place] ity of Supply Kit 00:00: - Dispense [place] 00 # 1 [facility] Respironic s (okay for alternativ e brand) for nebulizer treatment ipratropium 2020-11 Yes [id number] .5mg Inhale 2.5 [facility] 0.02 % 0-21 mL every 4 ity of nebulizer 00:00: (four) [place] solution 00 hours as Medical needed for Branch Wheezing or Shortness of Breath. albuterol 2020-11 Yes [id number] 2.5mg Inhale 3 [facility] 2.5 mg /3 0-21 mL every 4 ity of mL (0.083 00:00: (four) [place] %) 00 hours as Medical nebulizer needed for Bran ch solution Wheezing or Shortness of Breath. Miscellaneo 2020-11 Yes [id number] J40: Un [email or web address] 0-21 [place] ity of Supply Kit 00:00: - Dispense [place] 00 # 1 [facility] Respironic s (okay for alternativ e brand) for nebulizer treatment ipratropium 2020-11 Yes [id number] .5mg Inhale 2.5 [facility] 0.02 % 0-21 mL every 4 ity of nebulizer 00:00: (four) [place] solution 00 hours as Medical needed for Branch Wheezing or Shortness of Breath. albuterol 2020-11 Yes [id number] 2.5mg Inhale 3 [facility] 2.5 mg /3 0-21 mL every 4 ity of mL (0.083 00:00: (four) [place] %) 00 hours as Medical nebulizer needed for Bran ch solution Wheezing or Shortness of Breath. Miscellaneo 2020-11 Yes [id number] J40: [employer] 0-21 [facility] ity of Supply Kit 00:00: - Dispense [place] 00 # 1 [facility] Pra[facility] Respironic s (okay for alternativ e brand) for nebulizer treatment ipratropium 2020-11 Yes [id number] .5mg Inhale 2.5 [facility] 0.02 % 0-21 mL every 4 ity of nebulizer 00:00: (four) [place] solution 00 hours as Medical needed for Branch Wheezing or Shortness of Breath. albuterol 2020-11 Yes [id number] 2.5mg Inhale 3 [facility] 2.5 mg /3 0-21 mL every 4 ity of mL (0.083 00:00: (four) [place] %) 00 hours as Medical nebulizer needed for Bran ch solution Wheezing or Shortness of Breath. Miscellaneo 2020-11 Yes [id number] J40: Un [email or web address] 0-21 [place] ity of Supply Kit 00:00: - Dispense [place] 00 # 1 [facility] Respironic s (okay for alternativ e brand) for nebulizer treatment ipratropium 2020-11 Yes [id number] .5mg Inhale 2.5 [facility] 0.02 % 0-21 mL every 4 ity of nebulizer 00:00: (four) [place] solution 00 hours as Medical needed for Branch Wheezing or Shortness of Breath. albuterol 2020-11 Yes [id number] 2.5mg Inhale 3 [facility] 2.5 mg /3 0-21 mL every 4 ity of mL (0.083 00:00: (four) [place] %) 00 hours as Medical nebulizer needed for Bran ch solution Wheezing or Shortness of Breath. Miscellaneo 2020-11 Yes [id number] J40: Un [email or web address] 0-21 [place] ity of Supply Kit 00:00: - Dispense [place] 00 # 1 [facility] Respironic s (okay for alternativ e brand) for nebulizer treatment ipratropium 2020-11 Yes [id number] .5mg Inhale 2.5 [facility] 0.02 % 0-21 mL every 4 ity of nebulizer 00:00: (four) [place] solution 00 hours as Medical needed for Branch Wheezing or Shortness of Breath. albuterol 2020-11 Yes [id number] 2.5mg Inhale 3 [facility] 2.5 mg /3 0-21 mL every 4 ity of mL (0.083 00:00: (four) [place] %) 00 hours as Medical nebulizer needed for Bran ch solution Wheezing or Shortness of Breath. Miscellaneo 2020-11 Yes [id number] J40: Un [email or web address] 0-21 [place] ity of Supply Kit 00:00: - Dispense [place] 00 # 1 [facility] Pra[facility] Respironic s (okay for alternativ e brand) for nebulizer treatment ipratropium 2020-11 Yes [id number] .5mg Inhale 2.5 [facility] 0.02 % 0-21 mL every 4 ity of nebulizer 00:00: (four) [place] solution 00 hours as Medical needed for Branch Wheezing or Shortness of Breath. albuterol 2020-11 Yes [id number] 2.5mg Inhale 3 [facility] 2.5 mg /3 0-21 mL every 4 ity of mL (0.083 00:00: (four) [place] %) 00 hours as Medical nebulizer needed for Bran ch solution Wheezing or Shortness of Breath. Miscellaneo 2020-11 Yes [id number] J40: Un [email or web address] 0-21 [place] ity of Supply Kit 00:00: - Dispense [place] 00 # 1 [facility] Respironic s (okay for alternativ e brand) for nebulizer treatment ipratropium 2020-11 Yes [id number] .5mg Inhale 2.5 [facility] 0.02 % 0-21 mL every 4 ity of nebulizer 00:00: (four) [place] solution 00 hours as Medical needed for Branch Wheezing or Shortness of Breath. albuterol 2020-11 Yes [id number] 2.5mg Inhale 3 [facility] 2.5 mg /3 0-21 mL every 4 ity of mL (0.083 00:00: (four) [place] %) 00 hours as Medical nebulizer needed for Bran ch solution Wheezing or Shortness of Breath. Miscellaneo 2020-11 Yes [id number] J40: Un [email or web address] 0-21 [place] ity of Supply Kit 00:00: - Dispense [place] 00 # 1 [facility] Respironic s (okay for alternativ e brand) for nebulizer treatment ipratropium 2020-11 Yes [id number] .5mg Inhale 2.5 [facility] 0.02 % 0-21 mL every 4 ity of nebulizer 00:00: (four) [place] solution 00 hours as Medical needed for Branch Wheezing or Shortness of Breath. albuterol 2020-11 Yes [id number] 2.5mg Inhale 3 [facility] 2.5 mg /3 0-21 mL every 4 ity of mL (0.083 00:00: (four) [place] %) 00 hours as Medical nebulizer needed for Bran ch solution Wheezing or Shortness of Breath. Miscellaneo 2020-11 Yes [id number] J40: Un [email or web address] 0-21 [place] ity of Supply Kit 00:00: - Dispense [place] 00 # 1 [facility] Respironic s (okay for alternativ e brand) for nebulizer treatment ipratropium 2020-11 Yes [id number] .5mg Inhale 2.5 [facility] 0.02 % 0-21 mL every 4 ity of nebulizer 00:00: (four) [place] solution 00 hours as Medical needed for Branch Wheezing or Shortness of Breath. albuterol 2020-11 Yes [id number] 2.5mg Inhale 3 [facility] 2.5 mg /3 0-21 mL every 4 ity of mL (0.083 00:00: (four) [place] %) 00 hours as Medical nebulizer needed for Bran ch solution Wheezing or Shortness of Breath. Miscellaneo 2020-11 Yes [id number] J40: [employer] 0-21 [place] ity of Supply Kit 00:00: - Dispense [place] 00 # 1 [facility] Respironic s (okay for alternativ e brand) for nebulizer treatment ipratropium 2020-11 Yes [id number] .5mg Inhale 2.5 [facility] 0.02 % 0-21 mL every 4 ity of nebulizer 00:00: (four) [place] solution 00 hours as Medical needed for Branch Wheezing or Shortness of Breath. albuterol 2020-11 Yes [id number] 2.5mg Inhale 3 [facility] 2.5 mg /3 0-21 mL every 4 ity of mL (0.083 00:00: (four) [place] %) 00 hours as Medical nebulizer needed for Bran ch solution Wheezing or Shortness of Breath. Miscellaneo 2020-11 Yes [id number] J40: Un [email or web address] 0-21 [place] ity of Supply Kit 00:00: - Dispense [place] 00 # 1 [facility] Respironic s (okay for alternativ e brand) for nebulizer treatment ipratropium 2020-11 Yes [id number] .5mg Inhale 2.5 [facility] 0.02 % 0-21 mL every 4 ity of nebulizer 00:00: (four) [place] solution 00 hours as Medical needed for Branch Wheezing or Shortness of Breath. albuterol 2020-11 Yes [id number] 2.5mg Inhale 3 [facility] 2.5 mg /3 0-21 mL every 4 ity of mL (0.083 00:00: (four) [place] %) 00 hours as Medical nebulizer needed for Bran ch solution Wheezing or Shortness of Breath. Miscellaneo 2020-11 Yes [id number] J40: Un [employer] 0-21 [place] ity of Supply Kit 00:00: - Dispense [place] 00 # 1 [facility] Pra[facility] Respironic s (okay for alternativ e brand) for nebulizer treatment ipratropium 2020-11 Yes [id number] .5mg Inhale 2.5 [facility] 0.02 % 0-21 mL every 4 ity of nebulizer 00:00: (four) [place] solution 00 hours as Medical needed for Branch Wheezing or Shortness of Breath. albuterol 2020-11 Yes [id number] 2.5mg Inhale 3 [facility] 2.5 mg /3 0-21 mL every 4 ity of mL (0.083 00:00: (four) [place] %) 00 hours as Medical nebulizer needed for Bran ch solution Wheezing or Shortness of Breath. Miscellaneo 2020-11 Yes [id number] J40: Un [employer] 0-21 [place] ity of Supply Kit 00:00: - Dispense [place] 00 # 1 [facility] Pra[facility] Respironic s (okay for alternativ e brand) for nebulizer treatment ipratropium 2020-11 Yes [id number] .5mg Inhale 2.5 [facility] 0.02 % 0-21 mL every 4 ity of nebulizer 00:00: (four) [place] solution 00 hours as Medical needed for Branch Wheezing or Shortness of Breath. albuterol 2020-11 Yes [id number] 2.5mg Inhale 3 [facility] 2.5 mg /3 0-21 mL every 4 ity of mL (0.083 00:00: (four) [place] %) 00 hours as Medical nebulizer needed for Bran ch solution Wheezing or Shortness of Breath. Miscellaneo 2020-11 Yes [id number] J40: Un [email or web address] 0-21 [place] ity of Supply Kit 00:00: - Dispense [place] 00 # 1 [facility] Respironic s (okay for alternativ e brand) for nebulizer treatment ipratropium 2020-11 Yes [id number] .5mg Inhale 2.5 [facility] 0.02 % 0-21 mL every 4 ity of nebulizer 00:00: (four) [place] solution 00 hours as Medical needed for Branch Wheezing or Shortness of Breath. albuterol 2020-11 Yes [id number] 2.5mg Inhale 3 [facility] 2.5 mg /3 0-21 mL every 4 ity of mL (0.083 00:00: (four) [place] %) 00 hours as Medical nebulizer needed for Bran ch solution Wheezing or Shortness of Breath. Miscellaneo 2020-11 Yes [id number] J40: Un [email or web address] 0-21 [place] ity of Supply Kit 00:00: - Dispense [place] 00 # 1 [facility] Respironic s (okay for alternativ e brand) for nebulizer treatment ipratropium 2020-11 Yes [id number] .5mg Inhale 2.5 [facility] 0.02 % 0-21 mL every 4 ity of nebulizer 00:00: (four) [place] solution 00 hours as Medical needed for Branch Wheezing or Shortness of Breath. albuterol 2020-11 Yes [id number] 2.5mg Inhale 3 [facility] 2.5 mg /3 0-21 mL every 4 ity of mL (0.083 00:00: (four) [place] %) 00 hours as Medical nebulizer needed for Bran ch solution Wheezing or Shortness of Breath. Miscellaneo 2020-11 Yes [id number] J40: Un [email or web address] 0-21 [place] ity of Supply Kit 00:00: - Dispense [place] 00 # 1 [facility] Respironic s (okay for alternativ e brand) for nebulizer treatment ipratropium 2020-11 Yes [id number] .5mg Inhale 2.5 [facility] 0.02 % 0-21 mL every 4 ity of nebulizer 00:00: (four) [place] solution 00 hours as Medical needed for Branch Wheezing or Shortness of Breath. albuterol 2020-11 Yes [id number] 2.5mg Inhale 3 [facility] 2.5 mg /3 0-21 mL every 4 ity of mL (0.083 00:00: (four) [place] %) 00 hours as Medical nebulizer needed for Bran ch solution Wheezing or Shortness of Breath. Miscellaneo 2020-11 Yes [id number] J40: Un [email or web address] 0-21 [place] ity of Supply Kit 00:00: - Dispense [place] 00 # 1 Medical Praful Branch Respironic s (okay for alternativ e brand) for nebulizer treatment ipratropium 2020-11 Yes [id number] .5mg Inhale 2.5 [facility] 0.02 % 0-21 mL every 4 ity of nebulizer 00:00: (four) [place] solution 00 hours as Medical needed for Branch Wheezing or Shortness of Breath. albuterol 2020-11 Yes [id number] 2.5mg Inhale 3 [facility] 2.5 mg /3 0-21 mL every 4 ity of mL (0.083 00:00: (four) [place] %) 00 hours as Medical nebulizer needed for Bran ch solution Wheezing or Shortness of Breath. Miscellaneo 2020-11 Yes [id number] J40: Un [email or web address] 0-21 [facility] ity of Supply Kit 00:00: - Dispense [place] 00 # 1 [facility] Respironic s (okay for alternativ e brand) for nebulizer treatment ipratropium 2020-11 Yes [id number] .5mg Inhale 2.5 [facility] 0.02 % 0-21 mL every 4 ity of nebulizer 00:00: (four) [place] solution 00 hours as Medical needed for Branch Wheezing or Shortness of Breath. albuterol 2020-11 Yes [id number] 2.5mg Inhale 3 [facility] 2.5 mg /3 0-21 mL every 4 ity of mL (0.083 00:00: (four) [place] %) 00 hours as Medical nebulizer needed for Bran ch solution Wheezing or Shortness of Breath. Miscellaneo 2020-11 Yes [id number] J40: Un [email or web address] 0-21 [facility] ity of Supply Kit 00:00: - Dispense [place] 00 # 1 [facility] Respironic s (okay for alternativ e brand) for nebulizer treatment ipratropium 2020-11 Yes [id number] .5mg Inhale 2.5 [facility] 0.02 % 0-21 mL every 4 ity of nebulizer 00:00: (four) [place] solution 00 hours as Medical needed for Branch Wheezing or Shortness of Breath. albuterol 2020-11 Yes [id number] 2.5mg Inhale 3 [facility] 2.5 mg /3 0-21 mL every 4 ity of mL (0.083 00:00: (four) [place] %) 00 hours as Medical nebulizer needed for Bran ch solution Wheezing or Shortness of Breath. Miscellaneo 2020-11 Yes [id number] J40: Un [email or web address] 0-21 [facility] ity of Supply Kit 00:00: - Dispense [place] 00 # 1 [facility] Respironic s (okay for alternativ e brand) for nebulizer treatment ipratropium 2020-11 Yes [id number] .5mg Inhale 2.5 [facility] 0.02 % 0-21 mL every 4 ity of nebulizer 00:00: (four) [place] solution 00 hours as Medical needed for Branch Wheezing or Shortness of Breath. albuterol 2020-11 Yes [id number] 2.5mg Inhale 3 [facility] 2.5 mg /3 0-21 mL every 4 ity of mL (0.083 00:00: (four) [place] %) 00 hours as Medical nebulizer needed for Bran ch solution Wheezing or Shortness of Breath. Miscellaneo 2020-11 Yes [id number] J40: [employer] 0-21 Brochitis ity of Supply Kit 00:00: - Dispense [place] 00 # 1 [facility] Respironic s (okay for alternativ e brand) for nebulizer treatment ipratropium 2020-11 Yes [id number] .5mg Inhale 2.5 [facility] 0.02 % 0-21 mL every 4 ity of nebulizer 00:00: (four) [place] solution 00 hours as Medical needed for Branch Wheezing or Shortness of Breath. albuterol 2020-11 Yes [id number] 2.5mg Inhale 3 [facility] 2.5 mg /3 0-21 mL every 4 ity of mL (0.083 00:00: (four) [place] %) 00 hours as Medical nebulizer needed for Bran ch solution Wheezing or Shortness of Breath. Miscellaneo 2020-11 Yes [id number] J40: Un [email or web address] 0-21 [facility] ity of Supply Kit 00:00: - Dispense [place] 00 # 1 [facility] Respironic s (okay for alternativ e brand) for nebulizer treatment ipratropium 2020-11 Yes [id number] .5mg Inhale 2.5 [facility] 0.02 % 0-21 mL every 4 ity of nebulizer 00:00: (four) [place] solution 00 hours as Medical needed for Branch Wheezing or Shortness of Breath. albuterol 2020-11 Yes [id number] 2.5mg Inhale 3 [facility] 2.5 mg /3 0-21 mL every 4 ity of mL (0.083 00:00: (four) [place] %) 00 hours as Medical nebulizer needed for Bran ch solution Wheezing or Shortness of Breath. Miscellaneo 2020-11 Yes [id number] J40: [employer] 0-21 [facility] ity of Supply Kit 00:00: - Dispense [place] 00 # 1 [facility] Respironic s (okay for alternativ e brand) for nebulizer treatment ipratropium 2020-11 Yes [id number] .5mg Inhale 2.5 [facility] 0.02 % 0-21 mL every 4 ity of nebulizer 00:00: (four) [place] solution 00 hours as Medical needed for Branch Wheezing or Shortness of Breath. albuterol 2020-11 Yes [id number] 2.5mg Inhale 3 [facility] 2.5 mg /3 0-21 mL every 4 ity of mL (0.083 00:00: (four) [place] %) 00 hours as Medical nebulizer needed for Bran ch solution Wheezing or Shortness of Breath. Miscellaneo 2020-11 Yes [id number] J40: Un [employer] 0-21 [place] ity of Supply Kit 00:00: - Dispense [place] 00 # 1 [facility] Pra[facility] Respironic s (okay for alternativ e brand) for nebulizer treatment ipratropium 2020-11 Yes [id number] .5mg Inhale 2.5 [facility] 0.02 % 0-21 mL every 4 ity of nebulizer 00:00: (four) [place] solution 00 hours as Medical needed for Branch Wheezing or Shortness of Breath. albuterol 2020-11 Yes [id number] 2.5mg Inhale 3 [facility] 2.5 mg /3 0-21 mL every 4 ity of mL (0.083 00:00: (four) [place] %) 00 hours as Medical nebulizer needed for Bran ch solution Wheezing or Shortness of Breath. Miscellaneo 2020-11 Yes [id number] J40: Un [employer] 0-21 [place] ity of Supply Kit 00:00: - Dispense [place] 00 # 1 [facility] Respironic s (okay for alternativ e brand) for nebulizer treatment ipratropium 2020-11 Yes [id number] .5mg Inhale 2.5 [facility] 0.02 % 0-21 mL every 4 ity of nebulizer 00:00: (four) [place] solution 00 hours as Medical needed for Branch Wheezing or Shortness of Breath. albuterol 2020-11 Yes [id number] 2.5mg Inhale 3 [facility] 2.5 mg /3 0-21 mL every 4 ity of mL (0.083 00:00: (four) [place] %) 00 hours as Medical nebulizer needed for Bran ch solution Wheezing or Shortness of Breath. Miscellaneo 2020-11 Yes [id number] J40: Un [employer] 0-21 [facility] ity of Supply Kit 00:00: - Dispense [place] 00 # 1 [facility] Respironic s (okay for alternativ e brand) for nebulizer treatment ipratropium 2020-11 Yes [id number] .5mg Inhale 2.5 [facility] 0.02 % 0-21 mL every 4 ity of nebulizer 00:00: (four) [place] solution 00 hours as Medical needed for Branch Wheezing or Shortness of Breath. albuterol 2020-11 Yes [id number] 2.5mg Inhale 3 [facility] 2.5 mg /3 0-21 mL every 4 ity of mL (0.083 00:00: (four) [place] %) 00 hours as Medical nebulizer needed for Bran ch solution Wheezing or Shortness of Breath. Miscellaneo 2020-11 Yes [id number] J40: Un [employer] 0-21 [place] ity of Supply Kit 00:00: - Dispense [place] 00 # 1 [facility] Respironic s (okay for alternativ e brand) for nebulizer treatment ipratropium 2020-11 Yes [id number] .5mg Inhale 2.5 [facility] 0.02 % 0-21 mL every 4 ity of nebulizer 00:00: (four) [place] solution 00 hours as Medical needed for Branch Wheezing or Shortness of Breath. albuterol 2020-11 Yes [id number] 2.5mg Inhale 3 [facility] 2.5 mg /3 0-21 mL every 4 ity of mL (0.083 00:00: (four) [place] %) 00 hours as Medical nebulizer needed for Bran ch solution Wheezing or Shortness of Breath. Miscellaneo 2020-11 Yes [id number] J40: Un [employer] 0-21 [facility] ity of Supply Kit 00:00: - Dispense [place] 00 # 1 [facility] Respironic s (okay for alternativ e brand) for nebulizer treatment ipratropium 2020-11 Yes [id number] .5mg Inhale 2.5 [facility] 0.02 % 0-21 mL every 4 ity of nebulizer 00:00: (four) [place] solution 00 hours as Medical needed for Branch Wheezing or Shortness of Breath. albuterol 2020-11 Yes [id number] 2.5mg Inhale 3 [facility] 2.5 mg /3 0-21 mL every 4 ity of mL (0.083 00:00: (four) [place] %) 00 hours as Medical nebulizer needed for Bran ch solution Wheezing or Shortness of Breath. Miscellaneo 2020-11 Yes [id number] J40: Un [employer] 0-21 [facility] ity of Supply Kit 00:00: - Dispense [place] 00 # 1 [facility] Respironic s (okay for alternativ e brand) for nebulizer treatment ipratropium 2020-11 Yes [id number] .5mg Inhale 2.5 [facility] 0.02 % 0-21 mL every 4 ity of nebulizer 00:00: (four) [place] solution 00 hours as Medical needed for Branch Wheezing or Shortness of Breath. albuterol 2020-11 Yes [id number] 2.5mg Inhale 3 [facility] 2.5 mg /3 0-21 mL every 4 ity of mL (0.083 00:00: (four) [place] %) 00 hours as Medical nebulizer needed for Bran ch solution Wheezing or Shortness of Breath. Miscellaneo 2020-11 Yes [id number] J40: Un [employer] 0-21 Bro[facility]itis ity of Supply Kit 00:00: - Dispense [place] 00 # 1 [facility] Respironic s (okay for alternativ e brand) for nebulizer treatment ipratropium 2020-11 Yes [id number] .5mg Inhale 2.5 [facility] 0.02 % 0-21 mL every 4 ity of nebulizer 00:00: (four) [place] solution 00 hours as Medical needed for Branch Wheezing or Shortness of Breath. albuterol 2020-11 Yes [id number] 2.5mg Inhale 3 [facility] 2.5 mg /3 0-21 mL every 4 ity of mL (0.083 00:00: (four) [place] %) 00 hours as Medical nebulizer needed for Bran ch solution Wheezing or Shortness of Breath. Miscellaneo 2020-11 Yes [id number] J40: Un [employer] 0-21 [facility] ity of Supply Kit 00:00: - Dispense [place] 00 # 1 [facility] Respironic s (okay for alternativ e brand) for nebulizer treatment ipratropium 2020-11 Yes [id number] .5mg Inhale 2.5 [facility] 0.02 % 0-21 mL every 4 ity of nebulizer 00:00: (four) [place] solution 00 hours as Medical needed for Branch Wheezing or Shortness of Breath. Miscellaneo 2020-11 Yes [id number] J40: Un [employer] 0-21 [facility] ity of Supply Kit 00:00: - Dispense [place] 00 # 1 [facility] Respironic s (okay for alternativ e brand) for nebulizer treatment ipratropium 2020-11 Yes [id number] .5mg Inhale 2.5 [facility] 0.02 % 0-21 mL every 4 ity of nebulizer 00:00: (four) [place] solution 00 hours as Medical needed for Branch Wheezing or Shortness of Breath. Miscellaneo 2020-11 Yes [id number] J40: Un [employer] 0-21 [facility] ity of Supply Kit 00:00: - Dispense [place] 00 # 1 [facility] Respironic s (okay for alternativ e brand) for nebulizer treatment ipratropium 2020-11 Yes [id number] .5mg Inhale 2.5 [facility] 0.02 % 0-21 mL every 4 ity of nebulizer 00:00: (four) [place] solution 00 hours as Medical needed for Branch Wheezing or Shortness of Breath. Miscellaneo 2020-11 Yes [id number] J40: Un [employer] 0-21 [facility] ity of Supply Kit 00:00: - Dispense [place] 00 # 1 [facility] Respironic s (okay for alternativ e brand) for nebulizer treatment ipratropium 2020-11 Yes [id number] .5mg Inhale 2.5 [facility] 0.02 % 0-21 mL every 4 ity of nebulizer 00:00: (four) [place] solution 00 hours as Medical needed for Branch Wheezing or Shortness of Breath. Miscellaneo 2020-11 Yes [id number] J40: Un [employer] 0-21 Bro[facility] ity of Supply Kit 00:00: - Dispense [place] 00 # 1 [facility] Respironic s (okay for alternativ e brand) for nebulizer treatment ipratropium 2020-11 Yes [id number] .5mg Inhale 2.5 [facility] 0.02 % 0-21 mL every 4 ity of nebulizer 00:00: (four) [place] solution 00 hours as Medical needed for Branch Wheezing or Shortness of Breath. Miscellaneo 2020-11 Yes [id number] J40: Un [employer] 0-21 [facility] ity of Supply Kit 00:00: - Dispense [place] 00 # 1 [facility] Respironic s (okay for alternativ e brand) for nebulizer treatment ipratropium 2020-11 Yes [id number] .5mg Inhale 2.5 [facility] 0.02 % 0-21 mL every 4 ity of nebulizer 00:00: (four) [place] solution 00 hours as Medical needed for Branch Wheezing or Shortness of Breath. Miscellaneo 2020-11 Yes [id number] J40: Un [employer] 0-21 Bro[facility] ity of Supply Kit 00:00: - Dispense [place] 00 # 1 [facility] Respironic s (okay for alternativ e brand) for nebulizer treatment ipratropium 2020-11 Yes [id number] .5mg Inhale 2.5 [facility] 0.02 % 0-21 mL every 4 ity of nebulizer 00:00: (four) [place] solution 00 hours as Medical needed for Branch Wheezing or Shortness of Breath. Miscellaneo 2020-11 Yes [id number] J40: Un [employer] 0-21 [facility] ity of Supply Kit 00:00: - Dispense [place] 00 # 1 [facility] Respironic s (okay for alternativ e brand) for nebulizer treatment ipratropium 2020-11 Yes [id number] .5mg Inhale 2.5 [facility] 0.02 % 0-21 mL every 4 ity of nebulizer 00:00: (four) [place] solution 00 hours as Medical needed for Branch Wheezing or Shortness of Breath. Miscellaneo 2020-11 Yes [id number] J40: Un [employer] 0-21 [facility] ity of Supply Kit 00:00: - Dispense [place] 00 # 1 [facility] Respironic s (okay for alternativ e brand) for nebulizer treatment ipratropium 2020-11 Yes [id number] .5mg Inhale 2.5 [facility] 0.02 % 0-21 mL every 4 ity of nebulizer 00:00: (four) [place] solution 00 hours as Medical needed for Branch Wheezing or Shortness of Breath. Miscellaneo 2020-11 Yes [id number] J40: Un [employer] 0-21 [facility] ity of Supply Kit 00:00: - Dispense [place] 00 # 1 [facility] Respironic s (okay for alternativ e brand) for nebulizer treatment ipratropium 2020-11 Yes [id number] .5mg Inhale 2.5 [facility] 0.02 % 0-21 mL every 4 ity of nebulizer 00:00: (four) [place] solution 00 hours as Medical needed for Branch Wheezing or Shortness of Breath. Miscellaneo 2020-11 Yes [id number] J40: Un [employer] 0-21 Bro[facility]itis ity of Supply Kit 00:00: - Dispense [place] 00 # 1 [facility] Respironic s (okay for alternativ e brand) for nebulizer treatment ipratropium 2020-11 Yes [id number] .5mg Inhale 2.5 [facility] 0.02 % 0-21 mL every 4 ity of nebulizer 00:00: (four) [place] solution 00 hours as Medical needed for Branch Wheezing or Shortness of Breath. Miscellaneo 2020-11 Yes [id number] J40: Un [employer] 0-21 Bro[facility] ity of Supply Kit 00:00: - Dispense [place] 00 # 1 [facility] Respironic s (okay for alternativ e brand) for nebulizer treatment ipratropium 2020-11 Yes [id number] .5mg Inhale 2.5 [facility] 0.02 % 0-21 mL every 4 ity of nebulizer 00:00: (four) [place] solution 00 hours as Medical needed for Branch Wheezing or Shortness of Breath. Miscellaneo 2020-11 Yes [id number] J40: Un [employer] 0-21 Bro[facility]itis ity of Supply Kit 00:00: - Dispense [place] 00 # 1 [facility] Respironic s (okay for alternativ e brand) for nebulizer treatment ipratropium 2020-11 Yes [id number] .5mg Inhale 2.5 [facility] 0.02 % 0-21 mL every 4 ity of nebulizer 00:00: (four) [place] solution 00 hours as Medical needed for Branch Wheezing or Shortness of Breath. Miscellaneo 2020-11 Yes [id number] J40: Un [employer] 0-21 Bro[facility] ity of Supply Kit 00:00: - Dispense [place] 00 # 1 [facility] Respironic s (okay for alternativ e brand) for nebulizer treatment ipratropium 2020-11 Yes [id number] .5mg Inhale 2.5 [facility] 0.02 % 0-21 mL every 4 ity of nebulizer 00:00: (four) [place] solution 00 hours as Medical needed for Branch Wheezing or Shortness of Breath. Miscellaneo 2020-11 Yes [id number] J40: Un [employer] 0-21 [facility] ity of Supply Kit 00:00: - Dispense [place] 00 # 1 [facility] Respironic s (okay for alternativ e brand) for nebulizer treatment ipratropium 2020-11 Yes [id number] .5mg Inhale 2.5 [facility] 0.02 % 0-21 mL every 4 ity of nebulizer 00:00: (four) [place] solution 00 hours as Medical needed for Branch Wheezing or Shortness of Breath. Miscellaneo 2020-11 Yes [id number] J40: Un [employer] 0-21 [facility] ity of Supply Kit 00:00: - Dispense [place] 00 # 1 [facility] Respironic s (okay for alternativ e brand) for nebulizer treatment ipratropium 2020-11 Yes [id number] .5mg Inhale 2.5 [facility] 0.02 % 0-21 mL every 4 ity of nebulizer 00:00: (four) [place] solution 00 hours as Medical needed for Branch Wheezing or Shortness of Breath. Miscellaneo 2020-11 Yes [id number] J40: Un [employer] 0-21 Bro[facility]itis ity of Supply Kit 00:00: - Dispense [place] 00 # 1 [facility] Respironic s (okay for alternativ e brand) for nebulizer treatment ipratropium 2020-11 Yes [id number] .5mg Inhale 2.5 [facility] 0.02 % 0-21 mL every 4 ity of nebulizer 00:00: (four) [place] solution 00 hours as Medical needed for Branch Wheezing or Shortness of Breath. Miscellaneo 2020-11 Yes [id number] J40: Un [employer] 0-21 Bro[facility]itis ity of Supply Kit 00:00: - Dispense [place] 00 # 1 [facility] Respironic s (okay for alternativ e brand) for nebulizer treatment ipratropium 2020-11 Yes [id number] .5mg Inhale 2.5 [facility] 0.02 % 0-21 mL every 4 ity of nebulizer 00:00: (four) [place] solution 00 hours as Medical needed for Branch Wheezing or Shortness of Breath. Miscellaneo 2020-11 Yes [id number] J40: Un [employer] 0-21 Bro[facility] ity of Supply Kit 00:00: - Dispense [place] 00 # 1 [facility] Respironic s (okay for alternativ e brand) for nebulizer treatment ipratropium 2020-11 Yes [id number] .5mg Inhale 2.5 [facility] 0.02 % 0-21 mL every 4 ity of nebulizer 00:00: (four) [place] solution 00 hours as Medical needed for Branch Wheezing or Shortness of Breath. Miscellaneo 2020-11 Yes [id number] J40: Un [employer] 0-21 Brochitis ity of Supply Kit 00:00: - Dispense [place] 00 # 1 [facility] Respironic s (okay for alternativ e brand) for nebulizer treatment ipratropium 2020-11 Yes [id number] .5mg Inhale 2.5 [facility] 0.02 % 0-21 mL every 4 ity of nebulizer 00:00: (four) [place] solution 00 hours as Medical needed for Branch Wheezing or Shortness of Breath. Miscellaneo 2020-11 Yes [id number] J40: Un [employer] 0-21 Bro[facility]itis ity of Supply Kit 00:00: - Dispense [place] 00 # 1 [facility] Respironic s (okay for alternativ e brand) for nebulizer treatment ipratropium 2020-11 Yes [id number] .5mg Inhale 2.5 [facility] 0.02 % 0-21 mL every 4 ity of nebulizer 00:00: (four) [place] solution 00 hours as Medical needed for Branch Wheezing or Shortness of Breath. Miscellaneo 2020-11 Yes [id number] J40: Un [employer] 0-21 Brochitis ity of Supply Kit 00:00: - Dispense [place] 00 # 1 [facility] Respironic s (okay for alternativ e brand) for nebulizer treatment ipratropium 2020-11 Yes [id number] .5mg Inhale 2.5 [facility] 0.02 % 0-21 mL every 4 ity of nebulizer 00:00: (four) [place] solution 00 hours as Medical needed for Branch Wheezing or Shortness of Breath. Miscellaneo 2020-11 Yes [id number] J40: Un [employer] 0-21 Brochitis ity of Supply Kit 00:00: - Dispense [place] 00 # 1 [facility] Respironic s (okay for alternativ e brand) for nebulizer treatment ipratropium 2020-11 Yes [id number] .5mg Inhale 2.5 [facility] 0.02 % 0-21 mL every 4 ity of nebulizer 00:00: (four) [place] solution 00 hours as Medical needed for Branch Wheezing or Shortness of Breath. Miscellaneo 2020-11 Yes [id number] J40: Un [employer] 0-21 Brochitis ity of Supply Kit 00:00: - Dispense [place] 00 # 1 [facility] Respironic s (okay for alternativ e brand) for nebulizer treatment ipratropium 2020-11 Yes [id number] .5mg Inhale 2.5 [facility] 0.02 % 0-21 mL every 4 ity of nebulizer 00:00: (four) [place] solution 00 hours as Medical needed for Branch Wheezing or Shortness of Breath. Miscellaneo 2020-11 Yes [id number] J40: Un [employer] 0-21 Brochitis ity of Supply Kit 00:00: - Dispense [place] 00 # 1 [facility] Respironic s (okay for alternativ e brand) for nebulizer treatment ipratropium 2020-11 Yes [id number] .5mg Inhale 2.5 [facility] 0.02 % 0-21 mL every 4 ity of nebulizer 00:00: (four) [place] solution 00 hours as Medical needed for Branch Wheezing or Shortness of Breath. Miscellaneo 2020-11 Yes [id number] J40: Un [employer] 0-21 Brochitis ity of Supply Kit 00:00: - Dispense [place] 00 # 1 [facility] Respironic s (okay for alternativ e brand) for nebulizer treatment ipratropium 2020-11 Yes [id number] .5mg Inhale 2.5 [facility] 0.02 % 0-21 mL every 4 ity of nebulizer 00:00: (four) [place] solution 00 hours as Medical needed for Branch Wheezing or Shortness of Breath. Miscellaneo 2020-11 Yes [id number] J40: Un [employer] 0-21 Bro[facility]itis ity of Supply Kit 00:00: - Dispense [place] 00 # 1 [facility] Respironic s (okay for alternativ e brand) for nebulizer treatment ipratropium 2020-11 Yes [id number] .5mg Inhale 2.5 [facility] 0.02 % 0-21 mL every 4 ity of nebulizer 00:00: (four) [place] solution 00 hours as Medical needed for Branch Wheezing or Shortness of Breath. Miscellaneo 2020-11 Yes [id number] J40: Un [employer] 0-21 Brochitis ity of Supply Kit 00:00: - Dispense [place] 00 # 1 [facility] Respironic s (okay for alternativ e brand) for nebulizer treatment ipratropium 2020-11 Yes [id number] .5mg Inhale 2.5 [facility] 0.02 % 0-21 mL every 4 ity of nebulizer 00:00: (four) [place] solution 00 hours as Medical needed for Branch Wheezing or Shortness of Breath. Miscellaneo 2020-11 Yes [id number] J40: Un [employer] 0-21 Brochitis ity of Supply Kit 00:00: - Dispense [place] 00 # 1 [facility] Respironic s (okay for alternativ e brand) for nebulizer treatment ipratropium 2020-11 Yes [id number] .5mg Inhale 2.5 [facility] 0.02 % 0-21 mL every 4 ity of nebulizer 00:00: (four) [place] solution 00 hours as Medical needed for Branch Wheezing or Shortness of Breath. Miscellaneo 2020-11 Yes [id number] J40: Un [employer] 0-21 Brochitis ity of Supply Kit 00:00: - Dispense [place] 00 # 1 [facility] Respironic s (okay for alternativ e brand) for nebulizer treatment ipratropium 2020-11 Yes [id number] .5mg Inhale 2.5 [facility] 0.02 % 0-21 mL every 4 ity of nebulizer 00:00: (four) [place] solution 00 hours as Medical needed for Branch Wheezing or Shortness of Breath. Miscellaneo 2020-11 Yes [id number] J40: Un [employer] 0-21 Brochitis ity of Supply Kit 00:00: - Dispense [place] 00 # 1 [facility] Respironic s (okay for alternativ e brand) for nebulizer treatment ipratropium 2020-11 Yes [id number] .5mg Inhale 2.5 [facility] 0.02 % 0-21 mL every 4 ity of nebulizer 00:00: (four) [place] solution 00 hours as Medical needed for Branch Wheezing or Shortness of Breath. Miscellaneo 2020-11 Yes [id number] J40: Un [employer] 0-21 Brochitis ity of Supply Kit 00:00: - Dispense [place] 00 # 1 [facility] Respironic s (okay for alternativ e brand) for nebulizer treatment ipratropium 2020-11 Yes [id number] .5mg Inhale 2.5 [facility] 0.02 % 0-21 mL every 4 ity of nebulizer 00:00: (four) [place] solution 00 hours as Medical needed for Branch Wheezing or Shortness of Breath. Miscellaneo 2020-11 Yes [id number] J40: Un [employer] 0-21 Brochitis ity of Supply Kit 00:00: - Dispense [place] 00 # 1 [facility] Respironic s (okay for alternativ e brand) for nebulizer treatment ipratropium 2020-11 Yes [id number] .5mg Inhale 2.5 [facility] 0.02 % 0-21 mL every 4 ity of nebulizer 00:00: (four) [place] solution 00 hours as Medical needed for Branch Wheezing or Shortness of Breath. Miscellaneo 2020-11 Yes [id number] J40: Un [facility] 0-21 Brochitis ity of Supply Kit 00:00: - Dispense [place] 00 # 1 [facility] Respironic s (okay for alternativ e brand) for nebulizer treatment ipratropium 2020-11 Yes [id number] .5mg Inhale 2.5 [facility] 0.02 % 0-21 mL every 4 ity of nebulizer 00:00: (four) [place] solution 00 hours as Medical needed for Branch Wheezing or Shortness of Breath. albuterol 2020-11- No [id number] 2.5mg Inhale 3 [facility] 2.5 mg /3 0-21 03-01 mL every 4 ity of mL (0.083 00:00: 00:00 (four) [place] %) 00 :00 hours as Medical nebulizer needed for Bran ch solution Wheezing or Shortness of Breath. aspirin Yes [id number] 81mg Take 1 U nivers (ADULT LOW 4-20 02 tablet by ity of DOSE 00:00: mouth [place] ASPIRIN) 81 00 daily. Medica l mg EC Branch tablet aspirin Yes [id number] 81mg Take 1 U nivers (ADULT LOW 4-20 02 tablet by ity of DOSE 00:00: mouth [place] ASPIRIN) 81 00 daily. Medica l mg EC [facility] tablet aspirin Yes [id number] 81mg Take 1 U nivers (ADULT LOW 4-20 02 tablet by ity of DOSE 00:00: mouth [place] ASPIRIN) 81 00 daily. Medica l mg EC [facility] tablet aspirin Yes [id number] 81mg Take 1 U nivers (ADULT LOW 4-20 02 tablet by ity of DOSE 00:00: mouth [place] ASPIRIN) 81 00 daily. Medica l mg EC [facility] tablet aspirin Yes [id number] 81mg Take 1 U nivers (ADULT LOW 4-20 02 tablet by ity of DOSE 00:00: mouth [place] ASPIRIN) 81 00 daily. Medica l mg EC [facility] tablet aspirin Yes [id number] 81mg Take 1 U nivers (ADULT LOW 4-20 02 tablet by ity of DOSE 00:00: mouth [place] ASPIRIN) 81 00 daily. Medica l mg EC Branch tablet aspirin 2021-0 Yes [id number] 81mg Take 1 U nivers (ADULT LOW 4-20 02 tablet by ity of DOSE 00:00: mouth [place] ASPIRIN) 81 00 daily. Medica l mg EC [facility] tablet aspirin 0 Yes [id number] 81mg Take 1 U nivers (ADULT LOW 4-20 02 tablet by ity of DOSE 00:00: mouth [place] ASPIRIN) 81 00 daily. Medica l mg EC Branch tablet aspirin 2020-0 Yes [id number] 81mg Take 1 U nivers (ADULT LOW 4-20 02 tablet by ity of DOSE 00:00: mouth [place] ASPIRIN) 81 00 daily. Medica l mg EC Branch tablet aspirin 2020-0 Yes [id number] 81mg Take 1 U nivers (ADULT LOW 4-20 02 tablet by ity of DOSE 00:00: mouth [place] ASPIRIN) 81 00 daily. [facility] l mg [facility] Branch tablet aspirin 0 Yes [id number] 81mg Take 1 U nivers (ADULT LOW 4-20 02 tablet by ity of DOSE 00:00: mouth [place] ASPIRIN) 81 00 daily. Medica l mg [facility] tablet aspirin 0 Yes [id number] 81mg Take 1 U nivers (ADULT LOW 4-20 02 tablet by ity of DOSE 00:00: mouth [place] ASPIRIN) 81 00 daily. Medica l mg [facility] tablet aspirin 0 Yes [id number] 81mg Take 1 U nivers (ADULT LOW 4-20 02 tablet by ity of DOSE 00:00: mouth [place] ASPIRIN) 81 00 daily. Medica l mg [facility] tablet aspirin 2020-0 Yes [id number] 81mg Take 1 U nivers (ADULT LOW 4-20 02 tablet by ity of DOSE 00:00: mouth [place] ASPIRIN) 81 00 daily. Medica l mg [facility] tablet aspirin 2020-0 Yes [id number] 81mg Take 1 U nivers (ADULT LOW 4-20 02 tablet by ity of DOSE 00:00: mouth [place] ASPIRIN) 81 00 daily. Medica l mg [facility] tablet aspirin 2020-0 Yes [id number] 81mg Take 1 U nivers (ADULT LOW 4-20 02 tablet by ity of DOSE 00:00: mouth [place] ASPIRIN) 81 00 daily. Medica l mg [facility] tablet aspirin 2021-0 Yes [id number] 81mg Take 1 U nivers (ADULT LOW 4-20 02 tablet by ity of DOSE 00:00: mouth [place] ASPIRIN) 81 00 daily. Medica l mg [facility] tablet aspirin 0 Yes [id number] 81mg Take 1 U nivers (ADULT LOW 4-20 02 tablet by ity of DOSE 00:00: mouth [place] ASPIRIN) 81 00 daily. Medica l mg [facility] tablet aspirin 2020-0 Yes [id number] 81mg Take 1 U nivers (ADULT LOW 4-20 02 tablet by ity of DOSE 00:00: mouth [place] ASP[facility]IN) 81 00 daily. Medica l mg [facility] tablet aspirin 2020-0 Yes [id number] 81mg Take 1 U nivers (ADULT LOW 4-20 02 tablet by ity of DOSE 00:00: mouth [place] [facility]) 81 00 daily. Medica l mg [facility] tablet aspirin 0 Yes [id number] 81mg Take 1 U nivers (ADULT LOW 4-20 02 tablet by ity of DOSE 00:00: mouth [place] ASP[facility]IN) 81 00 daily. Medica l mg [facility] tablet aspirin 0 Yes [id number] 81mg Take 1 U nivers (ADULT LOW 4-20 02 tablet by ity of DOSE 00:00: mouth [place] [facility]IN) 81 00 daily. Medica l mg [facility] tablet aspirin 0 Yes [id number] 81mg Take 1 U nivers (ADULT LOW 4-20 02 tablet by ity of DOSE 00:00: mouth [place] [facility]) 81 00 daily. Medica l mg [facility] tablet aspirin 2020-0 Yes [id number] 81mg Take 1 U nivers (ADULT LOW 4-20 02 tablet by ity of DOSE 00:00: mouth [place] [facility]) 81 00 daily. Medica l mg [facility] tablet aspirin 2020-0 Yes [id number] 81mg Take 1 U nivers (ADULT LOW 4-20 02 tablet by ity of DOSE 00:00: mouth [place] ASP[facility]IN) 81 00 daily. Medica l mg [facility] tablet aspirin 2020-0 Yes [id number] 81mg Take 1 U nivers (ADULT LOW 4-20 02 tablet by ity of DOSE 00:00: mouth [place] [facility]) 81 00 daily. Medica l mg [facility] tablet aspirin 2021-0 Yes [id number] 81mg Take 1 U nivers (ADULT LOW 4-20 02 tablet by ity of DOSE 00:00: mouth [place] [facility]) 81 00 daily. Medica l mg [facility] tablet aspirin 0 Yes [id number] 81mg Take 1 U nivers (ADULT LOW 4-20 02 tablet by ity of DOSE 00:00: mouth [place] ASP[facility]) 81 00 daily. Medica l mg [facility] tablet aspirin 2020-0 Yes [id number] 81mg Take 1 U nivers (ADULT LOW 4-20 02 tablet by ity of DOSE 00:00: mouth [place] [facility]) 81 00 daily. Medica l mg [facility] tablet aspirin 2020-0 Yes [id number] 81mg Take 1 U nivers (ADULT LOW 4-20 02 tablet by ity of DOSE 00:00: mouth [place] [facility]) 81 00 daily. Medica l mg [facility] tablet aspirin 0 Yes [id number] 81mg Take 1 U nivers (ADULT LOW 4-20 02 tablet by ity of DOSE 00:00: mouth [place] ASP[facility]IN) 81 00 daily. Medica l mg [facility] tablet aspirin 0 Yes [id number] 81mg Take 1 U nivers (ADULT LOW 4-20 02 tablet by ity of DOSE 00:00: mouth [place] ASPIRIN) 81 00 daily. Medica l mg [facility] tablet aspirin 0 Yes [id number] 81mg Take 1 U nivers (ADULT LOW 4-20 02 tablet by ity of DOSE 00:00: mouth [place] [facility]) 81 00 daily. Medica l mg [facility] tablet aspirin 2020-0 Yes [id number] 81mg Take 1 U nivers (ADULT LOW 4-20 02 tablet by ity of DOSE 00:00: mouth [place] [facility]) 81 00 daily. Medica l mg [facility] tablet aspirin 2020-0 Yes [id number] 81mg Take 1 U nivers (ADULT LOW 4-20 02 tablet by ity of DOSE 00:00: mouth [place] [facility]) 81 00 daily. Medica l mg [facility] tablet aspirin 2020-0 Yes [id number] 81mg Take 1 U nivers (ADULT LOW 4-20 02 tablet by ity of DOSE 00:00: mouth [place] [facility]) 81 00 daily. Medica l mg [facility] tablet aspirin 2021-0 Yes [id number] 81mg Take 1 U nivers (ADULT LOW 4-20 02 tablet by ity of DOSE 00:00: mouth [place] [facility]) 81 00 daily. Medica l mg [facility] tablet aspirin 0 Yes [id number] 81mg Take 1 U nivers (ADULT LOW 4-20 02 tablet by ity of DOSE 00:00: mouth [place] [facility]) 81 00 daily. Medica l mg [facility] tablet aspirin 2020-0 Yes [id number] 81mg Take 1 U nivers (ADULT LOW 4-20 02 tablet by ity of DOSE 00:00: mouth [place] [facility]) 81 00 daily. Medica l mg [facility] tablet aspirin 2020-0 Yes [id number] 81mg Take 1 U nivers (ADULT LOW 4-20 02 tablet by ity of DOSE 00:00: mouth [place] [facility]) 81 00 daily. Medica l mg [facility] tablet aspirin 0 Yes [id number] 81mg Take 1 U nivers (ADULT LOW 4-20 02 tablet by ity of DOSE 00:00: mouth [place] [facility]) 81 00 daily. Medica l mg [facility] tablet aspirin 0 Yes [id number] 81mg Take 1 U nivers (ADULT LOW 4-20 02 tablet by ity of DOSE 00:00: mouth [place] [facility]) 81 00 daily. Medica l mg [facility] tablet aspirin 0 Yes [id number] 81mg Take 1 U nivers (ADULT LOW 4-20 02 tablet by ity of DOSE 00:00: mouth [place] [facility]) 81 00 daily. Medica l mg [facility] tablet aspirin 2020-0 Yes [id number] 81mg Take 1 U nivers (ADULT LOW 4-20 02 tablet by ity of DOSE 00:00: mouth [place] [facility]) 81 00 daily. Medica l mg [facility] tablet aspirin 2020-0 Yes [id number] 81mg Take 1 U nivers (ADULT LOW 4-20 02 tablet by ity of DOSE 00:00: mouth [place] [facility]) 81 00 daily. Medica l mg [facility] tablet aspirin 2020-0 Yes [id number] 81mg Take 1 U nivers (ADULT LOW 4-20 02 tablet by ity of DOSE 00:00: mouth [place] [facility]) 81 00 daily. Medica l mg [facility] tablet aspirin 2021-0 Yes [id number] 81mg Take 1 U nivers (ADULT LOW 4-20 02 tablet by ity of DOSE 00:00: mouth [place] [facility]) 81 00 daily. Medica l mg [facility] tablet aspirin 0 Yes [id number] 81mg Take 1 U nivers (ADULT LOW 4-20 02 tablet by ity of DOSE 00:00: mouth [place] [facility]) 81 00 daily. Medica l mg [facility] tablet aspirin 2020-0 Yes [id number] 81mg Take 1 U nivers (ADULT LOW 4-20 02 tablet by ity of DOSE 00:00: mouth [place] [facility]) 81 00 daily. Medica l mg [facility] tablet aspirin 2020-0 Yes [id number] 81mg Take 1 U nivers (ADULT LOW 4-20 02 tablet by ity of DOSE 00:00: mouth [place] [facility]) 81 00 daily. Medica l mg [facility] tablet aspirin 0 Yes [id number] 81mg Take 1 U nivers (ADULT LOW 4-20 02 tablet by ity of DOSE 00:00: mouth [place] [facility]) 81 00 daily. Medica l mg [facility] tablet aspirin 0 Yes [id number] 81mg Take 1 U nivers (ADULT LOW 4-20 02 tablet by ity of DOSE 00:00: mouth [place] [facility]) 81 00 daily. Medica l mg [facility] tablet aspirin 0 Yes [id number] 81mg Take 1 U nivers (ADULT LOW 4-20 02 tablet by ity of DOSE 00:00: mouth [place] [facility]) 81 00 daily. Medica l mg [facility] tablet aspirin 2020-0 Yes [id number] 81mg Take 1 U nivers (ADULT LOW 4-20 02 tablet by ity of DOSE 00:00: mouth [place] [facility]) 81 00 daily. Medica l mg [facility] tablet aspirin 2020-0 Yes [id number] 81mg Take 1 U nivers (ADULT LOW 4-20 02 tablet by ity of DOSE 00:00: mouth [place] [facility]) 81 00 daily. Medica l mg [facility] tablet aspirin 2020-0 Yes [id number] 81mg Take 1 U nivers (ADULT LOW 4-20 02 tablet by ity of DOSE 00:00: mouth [place] [facility]) 81 00 daily. Medica l mg [facility] tablet aspirin 2021-0 Yes [id number] 81mg Take 1 U nivers (ADULT LOW 4-20 02 tablet by ity of DOSE 00:00: mouth [place] [facility]) 81 00 daily. Medica l mg [facility] tablet aspirin 0 Yes [id number] 81mg Take 1 U nivers (ADULT LOW 4-20 02 tablet by ity of DOSE 00:00: mouth [place] [facility]) 81 00 daily. Medica l mg [facility] tablet aspirin 0 Yes [id number] 81mg Take 1 U nivers (ADULT LOW 4-20 02 tablet by ity of DOSE 00:00: mouth [place] [facility]) 81 00 daily. Medica l mg [facility] tablet aspirin 0 Yes [id number] 81mg Take 1 U nivers (ADULT LOW 4-20 02 tablet by ity of DOSE 00:00: mouth [place] [facility]) 81 00 daily. Medica l mg [facility] tablet aspirin Yes [id number] 81mg Take 1 U nivers (ADULT LOW 4-20 02 tablet by ity of DOSE 00:00: mouth [place] [facility]) 81 00 daily. Medica l mg [facility] tablet aspirin Yes [id number] 81mg Take 1 U nivers (ADULT LOW 4-20 02 tablet by ity of DOSE 00:00: mouth [place] [facility]) 81 00 daily. Medica l mg [facility] tablet aspirin 0 Yes [id number] 81mg Take 1 U nivers (ADULT LOW 4-20 02 tablet by ity of DOSE 00:00: mouth [place] [facility]IN) 81 00 daily. Medica l mg [facility] tablet aspirin 0 Yes [id number] 81mg Take 1 U nivers (ADULT LOW 4-20 02 tablet by ity of DOSE 00:00: mouth [place] [facility]IN) 81 00 daily. Medica l mg [facility] tablet aspirin 0 Yes [id number] 81mg Take 1 U nivers (ADULT LOW 4-20 02 tablet by ity of DOSE 00:00: mouth [place] [facility]IN) 81 00 daily. Medica l mg [facility] tablet aspirin 0 Yes [id number] 81mg Take 1 U nivers (ADULT LOW 4-20 02 tablet by ity of DOSE 00:00: mouth [place] [facility]IN) 81 00 daily. Medica l mg [facility] tablet aspirin 2022- No [id number] 81mg Take 1 Univers (ADULT LOW 4-20 06-23 02 tablet by ity of DOSE 00:00: 00:00 mouth [place] [facility]IRIN) 81 00 :00 daily. Medica l mg Branch tablet rosuvastati Yes [id number] 20mg Take 1 Univers n 20 mg 1-27 tablet by ity of tablet 00:00: mouth [place] 00 daily. [facility] rosuvastati Yes [id number] 20mg Take 1 Univers n 20 mg 1-27 tablet by ity of tablet 00:00: mouth [place] 00 daily. [facility] rosuvastati Yes [id number] 20mg Take 1 Univers n 20 mg 1-27 tablet by ity of tablet 00:00: mouth [place] 00 daily. [facility] rosuvastati Yes [id number] 20mg Take 1 Univers n 20 mg 1-27 tablet by ity of tablet 00:00: mouth [place] 00 daily. [facility] rosuvastati Yes [id number] 20mg Take 1 Univers n 20 mg 1-27 tablet by ity of tablet 00:00: mouth [place] 00 daily. [facility] rosuvastati 2021- No [id number] 20mg Take 1 Univers n 20 mg 1-27 10-05 tablet by ity of tablet 00:00: 00:00 mouth [place] 00 :00 daily. [facility] rosuvastati 2021- No [id number] 20mg Take 1 Univers n 20 mg 1-27 10-05 tablet by ity of tablet 00:00: 00:00 mouth [place] 00 :00 daily. [facility] Branch HYDROcodone Yes TK 1 T PO [...] mg per 00 Medical tablet Branch HYDROcodone 2018- Yes TK 1 T PO U nivers [...] mg per 00 Medical tablet Branch HYDROcodone 2018- Yes TK 1 T PO U nivers [...] mg per 00 Medical tablet Branch HYDROcodone 2018- Yes TK 1 T PO U nivers -acetaminop 8-06 TID ity of hen 7.5-325 00:00: [place] mg per 00 Medical tablet Branch HYDROcodone 2018- Yes TK 1 T PO U nivers [...] mg per 00 Medical tablet Branch HYDROcodone 20190 Yes TK 1 T PO U nivers -acetaminop 8-06 TID ity of hen 7.5-325 00:00: [place] mg per 00 Medical tablet Branch HYDROcodone 0 Yes TK 1 T PO U nivers -acetaminop 8-06 TID ity of hen 7.5-325 00:00: [place] mg per 00 Medical tablet Branch HYDROcodone 2018- Yes TK 1 T PO U nivers [...] Immunizations Ordered Filled Immunization Date Status Comments [facility] e Immunization Name Name SARS-COV-2 COVID-19 2022-02-08 Completed Unive rsity of MODERNA 0.25ML 00:00:00 [place] [facility] BOOSTER VACCINE Branch SARS-COV-2 COVID-19 2022-02-08 Completed Unive rsity of MODERNA 0.25ML 00:00:00 [place] [facility] BOOSTER VACCINE [facility] SARS-COV-2 COVID-19 2022-02-08 Completed Unive rsity of MODERNA 0.25ML 00:00:00 [place] [facility] BOOSTER VACCINE Branch SARS-COV-2 COVID-19 2022-02-08 Completed Unive rsity of MODERNA 0.25ML 00:00:00 [place] [facility] BOOSTER VACCINE Branch SARS-COV-2 COVID-19 [...] Unive rsity of MODERNA 12+ YRS 00:00:00 [facility] ical VACCINE Branch SARS-COV-2 COVID-19 2021-01-11 Completed Unive rsity of MODERNA 12+ YRS 00:00[facility] Influ[facility] Virus 2020-07-19 Completed Universit y of Vaccine Quad .5 mL 00:00:00 [place] [facility] IM 6+ MO Branch Influenza Virus 2020-07-19 Completed Universit y of Vaccine Quad .5 mL 00:00:00 [place] [facility] IM 6+ MO Branch Influenza Virus 2020-07-19 Completed Universit y of Vaccine Quad .5 mL 00:00:00 [place] [facility] IM 6+ MO Branch Influenza Virus [...] y of Vaccine Quad .5 mL 00:00:00 [place] [facility] 6+ MO Branch Td 2018-06-09 Completed University of 00:00:00 [facility] [place] Td 2018-06-09 Completed University of 00:00:00 [facility] [place] Td 2018-06-09 Completed University of 00:00:00 [facility] [place] Td 2018-06-09 Completed University of 00:00:00 [facility] [place] Td 2018-06-09 Completed University of 00:00:00 [facility] [place] Td 2018-06-09 Completed University of 00:00:00 [place] [facility] Td 2018-06-09 Completed University of 00:00:00 [place] [facility] Td 2018-06-09 Completed University of 00:00:00 [place] [facility] Td 2018-06-09 Completed University of 00:00:00 [facility] [place] Td 2018-06-09 Completed University of 00:00:00 [facility] [place] Td 2018-06-09 Completed University of 00:00:00 [facility] [place] Td 2018-06-09 Completed University of 00:00:00 [facility] [place] Td 2018-06-09 Completed University of 00:00:00 [facility] Td 2018-06-09 Completed University of 00:00:00 [facility] Td 2018-06-09 Completed University of 00:00:00 [place] [...] Medical Branch TD, NOS 2018-06-09 Completed University 00:00:00 [place] [facility] TD, NOS 2018-06-09 Completed University 00:00:00 [place] [facility] TD, NOS 2018-06-09 Completed University 00:00:00 [facility] Vital Signs Vital Name Observation Time Observation Value Comments Source Systolic blood 2023-03-12 16:17:00 118 mm[Hg] Univer sity of pressure [place] [facility] Diastolic blood 2023-03-12 16:17:00 87 mm[Hg] Unive rsity of pressure [place] [facility] Heart rate 2023-03-12 16:17:00 80 /min Universi ty of [place] [facility] Respiratory rate 2023-03-12 16:17:00 18 /min Univ ersity of [place] [facility] Body height 2023-03-12 16:17:00 160 cm Universi ty of [facility] [place] Body weight 2023-03-12 16:17:00 107.502 kg Universi ty of [place] [facility] BMI 2023-03-12 16:17:00 41.98 kg/m2 Universi ty of [facility] Oxygen saturation in 2023-03-12 16:17:00 98 /min University of Arterial blood by [facility] Pulse oximetry Branch Systolic blood 2022-11-08 14:27:00 136 mm[Hg] Univer sity of pressure [place] [facility] Diastolic blood 2022-11-08 14:27:00 89 mm[Hg] Unive rsity of pressure [place] [facility] Heart rate 2022-11-08 14:27:00 69 /min Universi ty of [place] [facility] Body temperature 2022-11-08 14:27:00 36.06 Jacqui Univ ersity of [place] [facility] Respiratory rate 2022-11-08 14:27:00 18 /min Univ ersity of [place] [facility] Body height 2022-11-08 14:27:00 162.6 cm Universi ty of [facility] Branch Oxygen saturation in 2022-11-08 14:27:00 99 /min University of Arterial blood by [facility] Pulse oximetry Branch Systolic blood 2022-11-08 14:17:00 136 mm[Hg] Univer sity of pressure [place] [facility] Diastolic blood 2022-11-08 14:17:00 89 mm[Hg] Unive rsity of pressure [place] [facility] Heart rate 2022-11-08 14:17:00 69 /min Universi ty of [place] [facility] Body temperature 2022-11-08 14:17:00 36.06 Jacqui Univ ersity of [place] [facility] Respiratory rate 2022-11-08 14:17:00 18 /min Univ ersity of [place] [facility] Oxygen saturation in 2022-11-08 14:17:00 99 /min University of Arterial blood by [facility] Pulse oximetry Branch Systolic blood 2022-10-11 22:00:00 162 mm[Hg] Univer sity of pressure [place] [facility] Diastolic blood 2022-10-11 22:00:00 109 mm[Hg] Unive rsity of pressure [place] [facility] Heart rate 2022-10-11 22:00:00 71 /min Universi ty of [place] [facility] Respiratory rate 2022-10-11 22:00:00 18 /min Univ ersity of [place] [facility] Oxygen saturation in 2022-10-11 22:00:00 97 /min University of Arterial blood by [facility] Pulse oximetry Branch Body temperature 2022-10-11 19:55:00 35.61 Jacqui Univ ersity of [place] [facility] Body height 2022-10-11 19:55:00 162.6 cm Universi ty of [place] [facility] Body weight 2022-10-11 19:55:00 114.76 kg Universi ty of [place] [facility] BMI 2022-10-11 19:55:00 43.43 kg/m2 Universi ty of [place] [facility] Systolic blood 2022-09-17 14:46:00 134 mm[Hg] Univer sity of pressure [place] [facility] Diastolic blood 2022-09-17 14:46:00 80 mm[Hg] Unive rsity of pressure [place] [facility] Heart rate 2022-09-17 14:46:00 85 /min Universi ty of [place] [facility] Body temperature 2022-09-17 14:46:00 36.11 Jacqui Univ ersity of [place] [facility] Respiratory rate 2022-09-17 14:46:00 18 /min Univ ersity of [place] [facility] Body height 2022-09-17 14:46:00 162.6 cm Universi ty of [place] [facility] Body weight 2022-09-17 14:46:00 114.76 kg Universi ty of [place] [facility] BMI 2022-09-17 14:46:00 43.43 kg/m2 Universi ty of [place] [facility] Oxygen saturation in 2022-09-17 14:46:00 97 /min University of Arterial blood by [facility] Pulse oximetry Branch Systolic blood 2022-08-08 13:11:00 120 mm[Hg] Univer sity of pressure [place] [facility] Diastolic blood 2022-08-08 13:11:00 77 mm[Hg] Unive rsity of pressure [place] [facility] Heart rate 2022-08-08 13:11:00 96 /min Universi ty of [place] [facility] Body temperature 2022-08-08 13:11:00 35.94 Jacqui Univ ersity of [place] [facility] Respiratory rate 2022-08-08 13:11:00 18 /min Univ ersity of [place] [facility] Body height 2022-08-08 13:11:00 162.6 cm Universi ty of [place] [facility] Oxygen saturation in 2022-08-08 13:11:00 96 /min University of Arterial blood by [facility] Pulse oximetry Branch Systolic blood 2022-07-04 13:58:00 132 mm[Hg] Univer sity of pressure [place] [facility] Diastolic blood 2022-07-04 13:58:00 83 mm[Hg] Unive rsity of pressure [place] [facility] Heart rate 2022-07-04 13:52:00 74 /min Universi ty of [place] [facility] Body temperature 2022-07-04 13:52:00 36.06 Jacqui Univ ersity of [place] [facility] Respiratory rate 2022-07-04 13:52:00 18 /min Univ ersity of [place] [facility] Body height 2022-07-04 13:52:00 162.6 cm Universi ty of [place] [facility] Body weight 2022-07-04 13:52:00 116.121 kg Universi ty of [place] [facility] BMI 2022-07-04 13:52:00 43.94 kg/m2 [facility] [place] [facility] Procedures Procedure Date / Time Performing Clinician Source Performed DME/SUPPLY JUSTIFICATION 2023-04-10 05:01:00 Doctor Unassigned, [facility] [place] [facility] DME/SUPPLY JUSTIFICATION 2023-03-26 05:01:00 Doctor Unassigned, [facility] [place] [facility] MICROALBUMIN URINE 2023-03-13 21:03:00 Cody Elizondo [facility] COMP. METABOLIC PANEL 2023-03-12 16:59:00 Cody Elizondo [facility] ([id number]) [facility] CBC WITH DIFF 2023-03-12 16:59:00 Cody Elizondo [facility] GLYCOSYLATED HEMOGLOBIN 2023-03-12 16:59:00 Cody Elizondo [facility] (A1C) [facility] VITAMIN D, 25-OH 2023-03-12 16:59:00 Cody Elizondo [facility] ASSIGNMENT OF BENEFITS 2023-03-12 16:10:59 Doctor Unassdawn [facility] Name [facility] MEDICAL RELEASE/CLEARANCE 2022-12-18 06:01:00 Doctor Madison [facility] FORMS [place] [facility] COMP. METABOLIC PANEL 2022-10-11 20:42:00 [id number] CBC WITH DIFF 2022-10-11 20:42:00 Pedro Clemente [place] [facility] RAPID INFLUENZA A/B 2022-10-11 20:42:00 Pedro Clemente [facility] CONSENT/REFUSAL FOR 2022-09-17 14:45:00 Doctor Madison [facility] DIAGNOSIS AND TREATMENT [place] [facility] INSURANCE CORRESPONDENCE 2022-09-13 06:01:00 Doctor Madison [facility] Name [facility] DME/SUPPLY JUSTIFICATION 2022-06-27 05:01:00 Doctor Madison [facility] Name [facility] Encounters Start End Encounter Admission Attending Care Care Encounter Source Date/Time Date/Time Type Type Clinicians Facility Department ID 2021-09-05 Emergency [facility] [id number] [facility] 2023-07-04 Outpatient R DANIEL, [facility] [id number] Univers 09:20:00 09:20:00 TANISHA evangelista o f [facility] 2023-07-04 2023-07-04 Outpatient R DANIEL, [facility] [id number] Univers 09:20:00 09:20:00 TANISHA evangelista o [facility] 2023-05-14 2023-05-14 Telephone [facility] [id number] Univers 00:00:00 00:00:00 Cody RAMESH [id number] i ty [facility] [id number] [phone] Ak dical NAL [address] [place] [address] 2023-04-30 2023-04-[facility] [id number] Univers 00:00:00 00:00:00 Cody RAMESH [id number] i ty [facility] [id number] [phone] Ak dical NAL [address] [place] [address] 2023-04-29 2023-04-29 Telephone [facility] [id number] Univers 00:00:00 00:00:00 Cody RAMESH [id number] i ty [facility] [id number] [id number] Ak dical NAL [address] [place] [address] 2023-04-26 2023-04-26 [facility] [id number] Univers 00:00:00 00:00:00 Cody RAMESH [id number] i ty [id number] [id number] Ak dicme NAL [address] [place] [address] 2023-04-24 2023-04-24 [id number] Univers 12:30:00 12:30:00 CODY evangelista [facility] 2023-04-17 2023-04-17 [facility] 1.2.840.114 [id number] Univers 00:00:00 00:00:00 Cody RAMESH [id number] i ty [id number] [id number] Ak dicme NAL [address] [place] [address] 2023-04-10 2023-04-10 Orders Doctor VELAZQUEZ 1.2.840.114 [id number] Univers 00:00:00 00:00:00 Only Unassigned, MALACHI [id number] [facility] [place] [facility] [id number] [place] as [id number] [address] 2023-04-08 2023-04-08 Telephone [facility] 1.2.840.114 [id number] Univers 00:00:00 00:00:00 Cody RAMESH [id number] i ty [id number] [id number] Ak dicme NAL [address] [place] [address] 2023-04-02 2023-04-02 Patient [facility] [id number] Univers 00:00:00 00:00:00 Outreach Barbara Rowena RAMESH [id number] [id number] [id number] [address] 2023-03-26 2023-03-26 Orders Doctor CAROLINE 1.2.840.114 [id number] Univers 00:00:00 00:00:00 Only Unassigned, MALACHI [id number] [place] [facility] [id number] [place] [id number] [address] 2023-03-22 2023-03-22 Telephone [facility] [id number] Univers 00:00:00 00:00:00 Cody RAMESH [id number] i ty [id number] [id number] Ak dic[address] 2023-03-20 2023-03-20 Telephone [facility] 1.2.840.114 [id number] Univers 00:00:00 00:00:00 Cody RAMESH 350.1.13.10 i ty of [place] [id number] Ak dicme NAL [address] [place] [address] 2023-03-13 2023-03-13 [facility] MOE Carrasquillo 1.2.840.114 1 [id number] Univers 07:30:00 23:59:00 Encounter Franklin Modi 350.1.13.10 ity of [facility] 4.2.7.2.686 [place] as [id number] [facility] 031 [place] 2023-03-13 2023-03-13 Outpatient R SUSI [facility] ACO [id number] Univers 00:00:00 23:59:00 FRANKLIN ity [facility] 2023-03-12 2023-03-12 Cardiopulmonary Technologist 2, Adc Lab [facility] 1.2.840.114 [id number] Univers 11:45:00 14:34:22 Visit Cody Elizondo 350.1.13.10 it[place] of [place] [id number] [facility] [address] [facility] 2023-03-12 2023-03-12 Outpatient [facility] [id number] Univers 11:20:00 11:42:37 CODY evangelista [facility] 2023-03-12 2023-03-12 Office [facility] 1.2.840.114 [id number] Univers 11:20:00 11:42:37 Visit Cody RAMESH 350.1.13.10 i ty of [place] [id number] [facility] 044 [facility] 2023-03-12 2023-03-12 Orders Doctor CAROLINE 1.2.840.114 [id number] Univers 00:00:00 00:00:00 Only Unassigned, MALACHI 350.1.13.10 [place] [facility] 4.2.7.2.686 [place] as [id number] [facility] 009 [place] 2023-03-12 2023-03-12 [facility] 1.2.840.114 1 [id number] Univers 00:00:00 00:00:00 Cody RAMESH 350.1.13.10 i [place] [id number] Ak dical NAL 044 [facility] 2023-03-07 2023-03-07 Telephone [facility] 1.2.840.114 1 [id number] Univers 00:00:00 00:00:00 Cody RAMESH 350.1.13.10 i ty of [place] [id number] Ak dical NAL 044 [facility] 2023-02-27 2023-02-27 [facility] 1044 [id number] Univers 00:00:00 00:00:00 CODY evangelista [facility] 2023-02-11 2023-02-11 Telephone [facility] 1.2.840.114 1 [id number] Univers 00:00:00 00:00:00 Cody RAMESH 350.1.13.10 i ty [facility] 4.2.7.2.[place] [id number] [facility] [address] [facility] 2023-02-07 2023-02-07 [facility] [id number] Univers 08:40:00 08:40:00 CODY evangelista [facility] 2023-01-29 2023-01-29 Refill [facility] 1.2.840.114 [id number] Univers 00:00:00 00:00:00 Cody RAMESH 350.1.13.10 i [place] [id number] Ak dical NAL [address] [place] [address] 2023-01-28 2023-01-28 Telephone [facility] 1.2.840.114 1 [id number] Univers 00:00:00 00:00:00 Cody RAMESH 350.1.13.10 i ty of [place] 4.[place].7.2.[place] [id number] Ak dical NAL 044 [facility] 2023-01-20 2023-01-20 Telephone [facility] 1.2.840.114 1 [id number] Univers 00:00:00 00:00:00 Cody RAMESH 350.1.13.10 i ty of [place] 4.[place].7.2.[place] [id number] [address] 2023-01-09 2023-01-09 Telephone [facility] 1.2.840.114 1 [id number] Univers 00:00:00 00:00:00 Cody RAMESH 350.1.13.10 i ty [place] [id number] [address] 2023-01-02 2023-01-02 Refill [facility] 1.2.840.114 101 [id number] Univers 00:00:00 00:00:00 Cody RAMESH 350.1.13.10 i ty [place] [id number] [address] 2022-12-25 2022-12-25 Telephone [facility] 1.2.840.114 1 [id number] Univers 00:00:00 00:00:00 Cody [facility] 350.1.13.10 it y of [place] 4.2.7.2.686 [place] as VERONICA?BLEA [phone] [address] MEDICAL OFFICE [facility] 2022-12-18 2022-12-18 Telephone [facility] 1.2.840.114 1 [id number] Univers 00:00:00 00:00:00 Cody RAMESH 350.1.13.10 i ty [place] [id number] [address] 2022-12-18 2022-12-18 Orders Doctor CAROLINE 1.2.840.114 [id number] Univers 00:00:00 00:00:00 Only Unassigned, MALACHI 350.1.13.10 [place] [facility] 4.2.7.2.686 [place] [id number] [address] 2022-12-10 2022-12-10 Telephone [facility] 1.2.840.114 1 [id number] Univers 00:00:00 00:00:00 Cody RAMESH 350.1.13.10 i ty [facility] 4.2.7.2.[place] [id number] Ak dical NAL 044 [facility] 2022-12-07 2022-12-07 Outpatient R [facility] [id number] Univers 08:32:14 23:59:00 CODY evangelista [facility] 2022-12-07 2022-12-07 [facility] 1.2.840.114 99 [id number] Univers 08:32:14 23:59:00 Encounter Cody RAMESH 350.1.13.10 it[place] [id number] [address] 2022-11-27 2022-11-27 Refill [facility] 1.2.840.114 100 [id number] Univers 00:00:00 00:00:00 Cody RAMESH 350.1.13.10 i ty [place] [id number] Ak dical NAL 044 [facility] 2022-11-26 2022-11-26 Ancillary Arnaldo Stewart [facility] 1.2.840. 114 [id number] Univers 13:45:00 14:30:57 Visit Gurpreet Ty 350.1.13.10 ity of [facility] 4.2.7.2.[place] [id number] Ak dical NAL 179 [facility] 2022-11-22 2022-11-22 Outpatient [facility] [id number] Univers 14:30:00 15:53:14 PETER tonja [facility] 2022-11-22 2022-11-22 Ancillary Yaquelin Mari [facility] 1 .2.840.114 [id number] Univers 14:30:00 15:53:14 Visit Henri Ortiz 350.1.13.10 ity of [facility] 4.2.7.2.[place] [id number] Ak dical NAL 179 [facility] 2022-11-09 2022-11-09 Telephone [facility] 1.2.840.114 9 [id number] Univers 00:00:00 00:00:00 Cody RAMESH 350.1.13.10 i ty [facility] 4.2.7.2.[place] [id number] Ak dical NAL 044 [facility] 2022-11-08 2022-11-08 Outpatient [facility] [id number] [id number] Univers 08:20:00 09:06:29 PETER ity [facility] 2022-11-08 2022-11-08 Office [facility] 1.2.840.114 [id number] Univers 08:20:00 09:06:29 Visit Cody RAMESH 350.1.13.10 i ty [facility] 4.2.7.2.[place] [id number] Ak dical NAL [address] [place] [address] 2022-11-08 2022-11-08 Cardiopulmonary Technologist Brent, Reginald Lab Main [facility] 1.2.8 40.114 [id number] Univers 08:45:00 09:00:00 Visit Cody Elizondo 350.1.13.10 ity of [facility] 4.2.7.2.[place] [id number] [facility] 353 [facility] 2022-11-08 2022-11-08 Office [facility] 1.2.840.114 [id number] Univers 08:00:00 08:20:00 Visit Cody RAMESH 350.1.13.10 i ty [facility] 4.2.7.2.[place] [id number] Ak dical NAL [address] [place] [address] 2022-11-01 2022-11-01 [facility]ill [facility] 1.2.840.114 [id number] Univers 00:00:00 00:00:00 Cody RAMESH 350.1.13.10 i ty [facility] 4.2.7.2.[place] [id number] Ak dical NAL 044 [facility] 2022-10-31 2022-10-31 Telephone Kim RODRIGES 1.2.840.114 [id number] Univers 00:00:00 00:00:00 , Awa QUEZADAY 350.1.13.10 ity of [place] [id number] [address] 2022-10-31 2022-10-31 Telephone Kim RODRIGES 1.2.840.114 [id number] Univers 00:00:00 00:00:00 , Awa QUEZADAY 350.1.13.10 [place] of [place] [id number] [address] 2022-10-16 2022-10-16 Telephone [facility] 1.2.840.114 9 [id number] Univers 00:00:00 00:00:00 Cody RAMESH 350.1.13.10 i ty [place] [id number] [address] 2022-10-11 2022-10-11 Emergency X [facility] ERT [id number] Univers 13:53:00 17:14:00 PEDRO evangelista of [facility] 2022-10-11 2022-10-11 Emergency [facility] 1.2.433.336 [id number] Univers 13:53:00 17:14:00 Pedro RAMESH 350.1.13.10 i ty [place].2.[place] GUSTINE [id number] [address] 2022-10-08 2022-10-08 Telephone [facility] 1.2.840.114 9 [id number] Univers 00:00:00 00:00:00 Cody RAMESH 350.1.13.10 i ty of [place]2.7.2.[place] [id number] Ak dical NAL 044 [facility] 2022-09-17 2022-09-17 Emergency Aufderheide [facility] 1.2.840.114 [id number] Univers 08:48:00 09:19:00 , Serina RAMESH 350.1.13.10 i ty of [place]2.7.2.[place] [id number] [facility] [address] [place] 2022-09-17 2022-09-17 Outpatient R DANIEL, [facility] [id number] Univers 07:41:51 08:47:00 TANISHA daniels f [facility] 2022-09-17 2022-09-17 Outpatient R DANIEL, [facility] ERT [id number] Univers 07:41:51 08:47:00 TANISHA evangelista o f [facility] 2022-09-17 2022-09-17 Telephone [facility] 1.2.840.114 9 [id number] Univers 00:00:00 00:00:00 Cody RAMESH 350.1.13.10 i ty [facility] 4.2.7.2.[place] [id number] Ak dical NAL 044 [facility] 2022-09-13 2022-09-13 Orders Doctor CAROLINE 1.2.840.114 [id number] Univers 00:00:00 00:00:00 Only Unassigned, MALACHI 350.1.13.10 [place] [facility] 4.2.7.2.686 [place] as [id number] [facility] [address] [place] 2022-09-04 2022-09-04 Outpatient R CASTILLO, [facility] [id number] Univers 08:00:00 08:00:00 VILLA ryanne [facility] 2022-08-08 2022-08-08 Outpatient R CARO [facility] [id number] Univers 08:20:00 09:11:24 CODY evangelista [facility] 2022-08-08 2022-08-08 Office [facility] 1.2.840.114 [id number] Univers 08:20:00 09:11:24 Visit Cody RAMESH 350.1.13.10 i ty of [place].2.[place] [id number] Ak dical NAL 044 [facility] 2022-07-17 2022-07-17 Telephone [facility] .2.840.114 9 [id number] Univers 00:00:00 00:00:00 Cody RAMESH 350.1.13.10 i ty [place] [id number] Ak dical NAL 044 [facility] 2022-07-04 2022-07-04 Outpatient R DANIEL, [facility] [id number] Univers 09:00:00 09:14:46 TANISHA evangelista o f [facility] 2022-07-04 2022-07-04 Office [facility] 1.2.840.114 [id number] Univers 09:00:00 09:14:46 Visit Tanisha RAMESH 350.1.13.10 ity of [place] [id number] Ak dicdanisha NAL 059 [facility] 2022-07-04 2022-07-04 [facility] [id number] Univers 09:00:00 09:14:46 TANISHA rowe [facility] 2022-07-04 2022-07-04 Outpatient [facility] [id number] Univers 09:00:00 09:00:00 TANISHA rowe [facility] 2022-06-30 2022-06-30 Refill [facility] 1.2.840.114 [id number] Univers 00:00:00 00:00:00 Cody RAMESH 350.1.13.10 i ty [place] [id number] Ak dicme NAL 044 [facility] 2022-06-27 2022-06-27 Telephone [facility] 1.2.840.114 9 [id number] Univers 00:00:00 00:00:00 Cody RAMESH 350.1.13.10 i ty [place] [id number] Ak dical NAL 044 [facility] 2022-06-27 2022-06-27 Orders Doctor VELAZQUEZ 1.2.840.114 [id number] Univers 00:00:00 00:00:00 Only Unassigned, MALACHI 350.1.13.10 [place] [facility] 4.2.7.2.686 [place] as [phone] [facility] 00[address] [place] 2022-06-20 2022-06-20 Telephone [facility] 1.2.840.114 9 [id number] Univers 00:00:00 00:00:00 Cody RAMESH 350.1.13.10 i ty [facility] 4.2.7.2.[place] [id number] Ak dical NAL 231 [facility] 2022-06-12 2022-06-12 Telephone [facility] 1.2.840.114 9 [id number] Univers 00:00:00 00:00:00 Cody RAMESH 350.1.13.10 i ty [facility] 4.2.7.2.[place] [id number] [facility] [address] [facility] 2022-06-12 2022-06-12 Telephone [facility] 1.2.840.114 9 [id number] Univers 00:00:00 00:00:00 Cody RAMESH 350.1.13.10 i ty [facility] 4.2.7.2.[place] [id number] Ak dical NAL 231 [facility] 2022-05-22 2022-05-22 [facility] [place] [address] [place] 09:22:00 09:22:00 _KENDAL 0719 [facility] 2022-05-12 2022-05-12 Telephone [facility] 1.2.840.114 9 [id number] Univers 00:00:00 00:00:00 Cody RAMESH 350.1.13.10 i ty [facility] 4.2.7.2.[place] [id number] Ak dical NAL 044 [facility] 2022-05-08 2022-05-08 Cardiopulmonary Technologist 2, Adc Lab [facility] 1.2.840.114 [id number] Univers 09:30:00 09:45:00 Visit Cody Elizondo 350.1.13.10 ity of [facility] 4.2.7.2.[place] [id number] Ak dical NAL 353 [facility] 2022-05-08 2022-05-08 Outpatient R JAMAALMARINAGEEJENNYAULTMAN [facility] [id number] Univers 08:40:00 09:26:39 CODY tonja [facility] 2022-05-08 2022-05-08 Office [facility] 1.2.840.114 [id number] Univers 08:40:00 09:26:39 Visit Cody RAMESH 350.1.13.10 i ty of [place].2.[place] [id number] Ak dical NAL 044 [facility] 2022-05-04 2022-05-04 Refill JamaaldoniMOUNTAIN [facility] 1.2.840.114 [id number] Univers 00:00:00 00:00:00 Cody PONCEFRENCH 350.1.13.10 i ty of [place] [id number] [facility] 044 [facility] 2022-04-26 2022-04-26 Telephone [facility] 1.2.840.114 [id number] Univers 00:00:00 00:00:00 Villa CHANEY 350.1.13.10 ity of [facility] 4.2.7.2.[place] [id number] [facility] 0[address] [place] 2022-04-18 2022-04-18 Telephone CAROLINE Chong 1.2.840.114 [id number] Univers 00:00:00 00:00:00 [place] LY 350.1.13.10 [facility] 4.2.7.2.686 [place] [id number] [address] 2022-04-17 2022-04-17 Outpatient [facility] [id number] Univers 14:49:43 23:59:00 VILLA evangelista [facility] 2022-04-17 2022-04-17 Outpatient [facility] [id number] Univers 14:49:43 23:59:00 VILLA evangelista [facility] 2022-04-17 2022-04-17 [facility] 1.2.972.064 [id number] Univers 14:49:43 23:59:00 Encounter [place] [facility] 350.1.13.10 ity of [place]2.[place].2.[place] [id number] Ak dical 807 [place] 2022-04-17 2022-04-17 Outpatient R CASTILLO [facility] [id number] Univers 14:49:43 23:59:00 VILLA evangelista [facility] 2022-04-17 2022-04-17 Cardiopulmonary Technologist Pcp-Lab [facility] 1.2.840.114 [id number] Univers 16:00:00 16:00:00 Visit [place] Chong PRIMARY 350.1.13.10 ity of [place]2.[place].2.[place] [id number] Ak dicdanisha [address] [place] 2022-04-17 2022-04-17 Office [facility] 1.2.840.114 [id number] Univers 15:00:00 15:00:00 Visit [place] PRIMARY 350.1.13.10 ity of [place] 4[place]2.7.2.[place] 279.9106282 Ak dicdanisha 086 [place] 2022-04-17 2022-04-17 Outpatient R CASTILLO [facility] [id number] Univers 14:49:43 14:49:43 VILLA evangelista [facility] 2022-04-17 2022-04-17 Outpatient R CASTILLO [facility] [id number] Univers 15:00:00 14:45:12 VILLA evangelista [facility] 2022-04-12 2022-04-12 Outpatient R SHUKRI [facility] [id number] Univers 10:00:00 10:00:00 ITZ ryanne [facility] 2022-04-12 2022-04-12 Office [facility] 1.2.840.114 [id number] Univers 10:00:00 10:00:00 Visit Itz [facility] 350.1.13.10 it y of [place] 4.2.7.2.686 [place] as VERONICA?BLEA [id number] Ak dical [address] MEDICAL OFFICE BUILDING 2022-04-12 2022-04-12 Outpatient Armida WATT [facility] [id number] Univers 10:00:00 09:35:02 ITZ ryanne [facility] 2022-04-05 2022-04-05 Outpatient Armida WATT [facility] [id number] Univers 09:30:00 09:30:00 ITZ ryanne [facility] 2022-04-03 2022-04-03 Cardiopulmonary Technologist 2, Reginald Lab [facility] 1.2.840.114 [id number] Univers 16:15:00 16:16:43 Visit Cody ElizondoFRENCH 350.1.13.10 ity of [facility] 4.2.7.2.[place] [id number] Ak dicme NAL 353 [facility] 2022-04-03 2022-04-03 Outpatient R [facility] [id number] Univers 16:15:00 16:15:00 CODY evangelista [facility] 2022-04-03 2022-04-03 Office Parkerjenny [facility] 1.2.840.114 [id number] Univers 14:40:00 16:07:34 Visit Cody RAMESH 350.1.13.10 i ty of [facility] 4.2.7.2.[place] [id number] [facility] 044 [facility] 2022-04-03 2022-04-03 Outpatient R PARKERJENNY [facility] [id number] Univers 14:40:00 16:07:34 CODY evangelista [facility] 2022-04-03 2022-04-03 Outpatient R [facility] [id number] Univers 14:40:00 14:40:00 CODY ryanne [facility] 2022-03-29 2022-03-29 Cardiopulmonary Technologist Lab, Krishna Boucher [facility] 1.2.840.1 14 [id number] Univers 10:15:00 10:30:00 Visit Itz Watt [facility] 350.1.13.10 ity [facility] 4.2.7.2.686 [place] as VERONICA?BLEA [phone] Ak dical KNEY [address] [place] [address] OFFICE BUILDING 2022-03-29 2022-03-29 Outpatient R [facility] [id number] Univers 09:30:00 09:59:43 ITZ ryanne [facility] 2022-03-29 2022-03-29 Office [facility] 1.2.840.114 [id number] Univers 09:30:00 09:59:43 Visit Itz [facility] 350.1.13.10 it y of [place] 4.2.7.2.686 [place] VERONICA?BLEA [id number] Ak aurora MILLER [address] [place] [address] OFFICE [facility] 2022-03-29 2022-03-29 Outpatient R SHUKRI [facility] [id number] Univers 09:30:00 09:59:43 ITZ [facility] 2022-03-23 2022-03-23 Outpatient R JAMAALMARINAKRISTYAULTMAN HOSPITAL [id number] Univers 11:00:00 11:00:00 CODY evangelista [facility] 2022-03-23 2022-03-23 Telephone [facility] 1.2.840.114 9 [id number] Univers 00:00:00 00:00:00 Cody RAMESH 350.1.13.10 i ty of [place] [id number] Ak aurora PABLO [address] [place] [address] 2022-03-21 2022-03-21 Telephone [facility] 1.2.632.900 [id number] Univers 00:00:00 00:00:00 [facility] 350.1.13.10 it y of [place] 4.2.7.2.686 [place] VERONICA?BLEA [id number] Ak aurora MILLER [address] [place] [address] OFFICE [facility] 2022-03-19 2022-03-19 Patient [facility] 1.2.840.114 [id number] Univers 00:00:00 00:00:00 Secure Msg Cody RAMESH 350.1.13.10 ity of [place] [id number] Ak diname NAL [address] [place] [address] 2022-03-19 2022-03-19 Patient [facility] 1.2.840.114 [id number] Univers 00:00:00 00:00:00 Secure Msg Cody RAMESH 350.1.13.10 ity [facility] 4.2.7.2.[place] [id number] Ak dical NAL 044 [facility] 2022-03-19 2022-03-19 Patient [facility] 1.2.840.114 [id number] Univers 00:00:00 00:00:00 Secure Msg Cody RAMESH 350.1.13.10 ity [facility] 4.2.7.2.[place] [id number] Ak dical NAL 044 [facility] 2022-03-17 2022-03-17 Refill [facility] 1.2.840.114 [id number] Univers 00:00:00 00:00:00 Cody RAMESH 350.1.13.10 i ty [facility] 4.2.7.2.[place] [id number] [facility] 231 [facility] 2022-03-17 2022-03-17 Telephone [facility] 1.2.840.114 9 [id number] Univers 00:00:00 00:00:00 Cody RAMESH 350.1.13.10 i ty [facility] 4.2.7.2.[place] [id number] Ak dical NAL 044 [facility] 2022-03-15 2022-03-15 Telephone [facility] 1.2.840.114 [id number] Univers 00:00:00 00:00:00 Cody RAMESH 350.1.13.10 i ty [facility] [place] [id number] Ak dical NAL 044 [facility] 2022-03-15 2022-03-15 [facility] 1.2.840.114 [id number] Univers 00:00:00 00:00:00 Cody RAMESH 350.1.13.10 i ty [facility] [place] [phone] [place] [address] [facility] 2022-03-14 2022-03-14 [facility] 1.2.840.114 [id number] Univers 00:00:00 00:00:00 Cody RAMESH 350.1.13.10 i ty [place] [phone] Ak aurora PABLO 231 [facility] 2022-03-14 2022-03-14 Telephone [facility] 1.2.430.078 [id number] Univers 00:00:00 00:00:00 Itz S HEALTH 350.1.13.10 it y of [place] 4.2.7.2.686 Willy as VERONICA?BLEA [phone] Ak aurora MILLER 198 [facility] 2022-03-13 2022-03-13 Outpatient [facility] [id number] Univers 15:30:00 16:55:46 [facility] 2022-03-13 2022-03-13 [facility] 1.2.840.114 [id number] Univers 15:30:00 16:55:46 Visit [facility] S HEALTH 350.1.13.10 it y of [place] 4.2.7.2.686 Willy as VERONICA?BLEA [phone] Ak aurora MILLER 198 [facility] 2022-03-13 2022-03-13 Outpatient Armida [facility] [id number] Univers 15:30:00 16:55:46 [facility] 2022-03-13 2022-03-13 Outpatient Arm[facility] [id number] Univers 15:30:00 15:30:00 [facility] 2022-03-05 2022-03-05 Telephone [facility] 1.2.315.127 [id number] Univers 00:00:00 00:00:00 Itz S HEALTH 350.1.13.10 it y of [place] 4.2.7.2.686 Willy as VERONICA?BLEA [phone] [facility] 2022-03-03 2022-03-03 Nurse Arias CAROLINE 1.2.840.114 [id number] Univers 00:00:00 00:00:00 Triage Robyn LY 350.1.13.10 it y of [facility] 4.2.7.2.686 Willy as [id number] [address] 2022-02-28 2022-02-28 Telephone [facility] 1.2.840.114 [id number] Univers 00:00:00 00:00:00 Cody RAMESH 350.1.13.10 i ty [place] [phone] [address] 2022-02-27 2022-02-27 Outpatient [facility] [id number] Univers 16:00:00 17:14:05 [facility] 2022-02-27 2022-02-27 Office [facility] 1.2.840.114 [id number] Univers 16:00:00 17:14:05 Visit [facility] 350.1.13.10 it y [facility] 4.2.7.2.686 Willy as VERONICA?BLEA [phone] [address] OFFICE [facility] 2022-02-27 2022-02-27 Outpatient Armida [facility] [id number] Univers 16:00:00 17:14:05 [facility] 2022-02-27 2022-02-27 Outpatient Armida [facility] [id number] Univers 16:00:00 16:00:00 [facility] 2022-02-27 2022-02-27 Telephone [facility] 1.2.840.114 [id number] Univers 00:00:00 00:00:00 Cody RAMESH 350.1.13.10 i [place] of [place] [id number] [address] 2022-02-27 2022-02-27 Telephone [facility] 1.2.840.114 [id number] Univers 00:00:00 00:00:00 Cody RAMESH 350.1.13.10 i ty of [place].2.[place] [id number] Ak aurora PABLO 044 [facility] 2022-02-21 2022-02-21 Telephone Shukri [facility] 1.2.296.564 [id number] Univers 00:00:00 00:00:00 Itz S [facility] 350.1.13.10 it y [facility] 4.2.7.2.686 [place] as VERONICA?BLEA [id number] Ak aurora MILLER [address] [place] MEDICAL OFFICE [facility] 2022-02-19 2022-02-19 Orders Doctor CAROLINE 1.2.840.114 [id number] Univers 00:00:00 00:00:00 Only Unassigned, MALACHI 350.1.13.10 [place] [facility] 4.2.7.2.686 Willy as [id number] [address] 2022-02-15 2022-02-15 Telephone Melony [facility] 1.2.840.114 [id number] Univers 00:00:00 00:00:00 [facility] 350.1.13.10 it y of [place] 4.2.7.2.686 [place] as VERONICA?BLEA [id number] Ak aurora MILLER 198 [facility] 2022-02-09 2022-02-09 Outpatient R CARO [facility] [id number] Univers 11:00:00 11:00:00 CODY evangelista [facility] 2022-02-09 2022-02-09 Outpatient R CARO [facility] [id number] Univers 11:00:00 11:00:00 CODY evangelista [facility] 2022-02-09 2022-02-09 Outpatient R CARO [facility] [id number] Univers 11:00:00 11:00:00 CODY evangelista [facility] 2022-02-08 2022-02-08 Imm/Inj Vaccine, [facility] 1.2.840.114 [id number] Univers 15:00:00 15:10:00 Visit Rhett Chaparro 350.1.13 .10 ity [facility] 4.2.7.2.686 [place] BENJIEIO [phone] Ak aurora Randolph [facility] 2022-02-08 2022-02-08 Outpatient R ANETTE [facility] [id number] Univers 15:00:00 15:00:00 RHETT ryanne [facility] 2022-01-31 2022-01-31 Telephone [facility] 1.2.840.114 [id number] Univers 00:00:00 00:00:00 Gurpreet Guaman [email or web address] 350.1.13.10 it y of [place] 4.2.7.2.686 [place]ly as VERONICA?BLEA [phone] Ak aurora MILLER 198 [facility] OFFICE [facility] 2022-01-29 2022-01-29 Out[facility] [id number] Univers 14:45:00 15:31:55 GURPREET ryanne [facility] 2022-01-29 2022-01-29 Telephone [facility] 1.2.840.114 [id number] Univers 00:00:00 00:00:00 Gurpreet Guaman [email or web address] 350.1.13.10 it y of [place] 4.2.7.2.686 Willy as VERONICA?BLEA [phone] Ak aurora MILLER 198 [facility] OFFICE [facility] 2022-01-26 2022-01-26 Telephone [facility] 1.2.840.114 [id number] Univers 00:00:00 00:00:00 Gurpreet Guaman [email or web address] 350.1.13.10 it y of [place] 4.2.7.2.686 Willy as VERONICA?BLEA [id number] Ak aurora MILLER [address] [place] [address] OFFICE [facility] 2022-01-22 2022-01-22 Outpatient R MELONY [facility] [id number] Univers 14:45:00 15:17:19 GURPREET evangelista [facility] 2022-01-22 2022-01-22 Office Itz Watt [facility] 1.2.840.114 [id number] Univers 14:45:00 15:17:19 Visit Nicolas Tydesirae Guaman [email or web address] 350.1.13.10 ity of [place] 4.2.7.2.686 Willy as VERONICA?BLEA [phone] Me aurora MILLER [address] [place] MEDICAL OFFICE [facility] 2022-01-22 2022-01-22 Outpatient R MELONY [facility] [id number] Univers 14:45:00 15:17:19 GURPREET evangelista [facility] 2022-01-22 2022-01-22 Office Watt Itz Brooks [facility] 1.2.840.114 [id number] Univers 14:45:00 15:17:19 Visit Gurpreet Ty HEALTH 350.1.13.10 ity of [place] 4.2.7.2.686 [place]ly as VERONICA?BLEA [id number] Ak aurora MILLER 198 [facility] OFFICE [facility] 2022-01-22 2022-01-22 Orders Doctor CAROLINE 1.2.840.114 [id number] Univers 00:00:00 00:00:00 Only Unassigned, MALACHI 350.1.13.10 [place] [facility] 4.2.7.2.686 [place]ly as [phone] [address] 2022-01-15 2022-01-15 Office [facility] 1.2.840.114 [id number] Univers 13:30:00 13:45:00 Visit Itz RYAN 350.1.13.10 it y of [place] 4.2.7.2.686 Willy as VERONICA?BLEA [id number] Ak aurora MILLER 198 [facility] OFFICE [facility] 2022-01-15 2022-01-15 Outpatient R SHUKRI [facility] [id number] Univers 13:30:00 13:30:00 ITZ evangelista [facility] 2022-01-10 2022-01-10 Telephone [facility] 1.2.840.114 [id number] Univers 00:00:00 00:00:00 Gurpreet Guaman HEALTH 350.1.13.10 it y of [place] 4.2.7.2.686 [place]ly as VERONICA?BLEA [phone] Ak aurora MILLER 198 [facility] OFFICE [facility] 2022-01-08 2022-01-08 Telephone Melony [facility] 1.2.840.114 [id number] Univers 00:00:00 00:00:00 Gurpreet Guaman HEALTH 350.1.13.10 it [facility] 4.2.7.2.686 [place] as VERONICA?BLEA [phone] Ak dical KNEY 198 [facility] OFFICE [facility] 2021-12-28 2021-12-28 Refhenny Shabazzers [facility] 1.2.840.114 [id number] Univers 00:00:00 00:00:00 Nelson RAMESH 350.1.13.10 i ty [facility] 4.2.7.2.[place] [phone] Ak dical NAL 044 [facility] 2021-12-26 2021-12-[address] [facility] 1.2.840.114 [id number] Univers 00:00:00 00:00:00 Gurpreet Guaman HEALTH 350.1.13.10 it y of SURGICAL 4.2.7.2.686 [place]ly as SPECIALTI [phone] Ak dical ES 198 [facility] 2021-12-20 2021-12-20 Patient [facility] 1.2.840.114 [id number] Univers 00:00:00 00:00:00 Secure Msg Cody PONCEFRENCH 350.1.13.10 ity of [place] 4.2.7.2.686 [place] [id number] Ak dical NAL 044 [facility] 2021-12-20 2021-12-20 Telephone [facility] 1.2.840.114 [id number] Univers 00:00:00 00:00:00 Cody RAMESH 350.1.13.10 i ty of [place].2.[place] [phone] Ak dical NAL 231 [facility] 2021-12-18 2021-12-18 Telephone [facility] 1.2.978.529 [id number] Univers 00:00:00 00:00:00 Itz S HEALTH 350.1.13.10 it y [facility] 4.2.7.2.686 [place] as VERONICA?BLEA [id number] Ak dicdanisha MILLER 198 [facility] 2021-12-15 2021-12-15 Outpatient [facility] [id number] Univers 09:30:00 23:59:00 GURPREET evangelista [facility] 2021-12-15 2021-12-15 Hospital [facility] 1.2.840.114 [id number] Univers 09:30:00 23:59:00 Encounter Gurpreet RYAN 350.1.13.10 ity of [place] 4.2.7.2.686 [place] as VERONICA?BLEA [id number] Ak aurora MILLER 809 [facility] OFFICE [facility] 2021-12-15 2021-12-15 Cardiopulmonary Technologist Lab, Ang - Db [facility] 1.2.840.1 14 [id number] Univers 10:45:00 11:00:00 Visit Gurpreet Ty 350.1.13.10 ity of [place] 4.2.7.2.686 Willy as VERONICA?BLEA [phone] Ak aurora MILLER 353 [facility] OFFICE [facility] 2021-12-15 2021-12-15 Outpatient [facility] [id number] Univers 10:45:00 10:48:46 GURPREET evangelista [facility] 2021-12-15 2021-12-15 Outpatient R [facility] [id number] Univers 09:00:00 09:59:52 GURPREET evangelista [facility] 2021-12-15 2021-12-15 Office [facility] 1.2.606.157 [id number] Univers 09:00:00 09:59:52 Visit Gurpreet RYAN 350.1.13.10 it y of [place] 4.2.7.2.686 [place]ly as VERONICA?BLEA [phone] Ak aurora MILLER 198 [facility] OFFICE [facility] 2021-12-15 2021-12-15 Outpatient R [facility] [id number] Univers 09:00:00 09:59:52 GURPREET evangelista [facility] 2021-12-15 2021-12-15 Office [facility] 1.2.168.287 [id number] Univers 09:00:00 09:59:52 Visit Gurpreet RYAN 350.1.13.10 it y of [place] 4.2.7.2.686 [place]ly as VERONICA?BLEA [id number] Ak aurora MILLER [address] [place] MEDICAL OFFICE [facility] 2021-12-15 2021-12-15 Outpatient R MELONY [facility] [id number] Univers 09:00:00 09:00:00 GURPREET evangelista [facility] 2021-12-15 2021-12-15 Outpatient R MELONY [facility] [id number] Univers 09:00:00 09:00:00 GURPREET evangelista [facility] 2021-12-08 2021-12-08 Outpatient R CARO [facility] [id number] Univers 09:00:00 11:08:33 CODY evangelista [facility] 2021-12-08 2021-12-08 Telemedici [facility] 1.2.840.114 [id number] Univers 09:00:00 11:08:33 ne Visit Cody RAMESH 350.1.13.10 ity of [facility] 4.2.7.2.[place] [phone] Ak aurora PABLO [address] [place] [address] 2021-12-08 2021-12-08 Outpatient R ACRO [facility] [id number] Univers 09:00:00 11:08:33 CODY evangelista [facility] 2021-12-08 2021-12-08 Outpatient [facility] [id number] Univers 09:00:00 11:08:33 CODY evangelista [facility] 2021-12-08 2021-12-08 [facility]phone [facility] .2.840.114 9 [id number] Univers 00:00:00 00:00:00 Cody RAMESH 350.1.13.10 i ty of [place] 4[place].2.[place] [phone] Ak dical NAL [address] [place] [address] 2021-12-08 2021-12-08 Telephone [facility] 1.2.840.114 [id number] Univers 00:00:00 00:00:00 Cody RAMESH 350.1.13.10 i ty [facility] 4.2.7.2.[place] [id number] Ak dical NAL [address] [place] [address] 2021-12-06 2021-12-06 [facility] 1.2.840.114 [id number] Univers 00:00:00 00:00:00 Cody RAMESH 350.1.13.10 i ty [facility] 4.2.7.2.[place] [phone] Me dical NAL 044 [facility] 2021-11-24 2021-11-24 Outpatient [facility] [id number] Univers 09:45:00 09:45:00 [facility] 2021-11-24 2021-11-[address] [facility] 1.2.862.462 [id number] Univers 09:45:00 09:45:00 Visit [facility] 350.1.13.10 it y [facility] 4.2.7.2.686 [place] as VERONICA?BLEA [phone] Ak aurora ANGELA 198 [facility] 2021-11-24 2021-11-24 Outpatient R [facility] [id number] Univers 09:45:00 09:43:13 [facility] 2021-11-24 2021-11-24 Outpatient R [facility] [id number] Univers 09:45:00 09:43:13 [facility] 2021-11-14 2021-11-14 Telephone [facility] 1.2.840.114 [id number] Univers 00:00:00 00:00:00 [facility] 350.1.13.10 it y of [place] 4.2.7.2.686 [place] as PROFESSIO [phone] Ak dical NAL 044 [facility] ONE 2021-11-09 2021-11-09 Emergency X PADMINI OKTIA ERT [id number] Univers 10:45:00 12:02:00 MAXIMILIAN [facility] 2021-11-09 2021-11-09 Emergency Padmini [facility] 1.2.490.409 [id number] Univers 10:45:00 12:02:00 Maximilian RAMESH 350.1.13.10 i ty [facility] 4.2.7.2.686 [place] GUSTINE [phone] [facility] [address] [place] 2021-11-09 2021-11-09 Emergency X PADMINI, [facility] ERT [id number] Univers 10:45:00 12:02:00 MAXIMILIAN ryanne [facility] 2021-11-09 2021-11-09 Telephone [facility] 1.2.840.114 [id number] Univers 00:00:00 00:00:00 Cody RAMESH 350.1.13.10 i ty of [place] 4[place].7.2.686 [place] PROFESS[place] [phone] [address] 2021-11-07 2021-11-07 Outpatient [facility] [id number] Univers 11:30:00 11:30:00 CODY tonja [facility] 2021-11-07 2021-11-07 Cardiopulmonary Technologist 2, Adc Lab [facility] 1.2.840.114 [id number] Univers 11:30:00 11:30:00 Visit Cody Elizondo 350.1.13.10 ity [facility] 4.2.7.2.[place] [phone] [facility] 353 [facility] 2021-11-07 2021-11-07 Office [facility] 1.2.840.114 [id number] Univers 11:00:00 11:00:00 Visit Cody RAMESH 350.1.13.10 i ty of [place] 4.2.7.2.686 [place]ESS[place] [phone] [address] 2021-11-07 2021-11-07 Outpatient R CARO [facility] [id number] Univers 11:00:00 10:19:29 CODY evangelista [facility] 2021-10-13 2021-10-13 Outpatient R [facility] [id number] Univers 08:30:00 09:17:02 GURPREET [facility] 2021-10-13 2021-10-13 Office [facility] 1.2.604.598 [id number] Univers 08:30:00 09:17:02 Visit [facility] 350.1.13.10 it y [facility] 4.2.7.2.686 [place]ly as VERONICA?BLEA [phone] Ak aurora PEDERSENEY [address] [place] MEDICAL OFFICE BUILDING 2021-10-13 2021-10-13 Outpatient R [facility] [id number] Univers 08:30:00 09:17:02 [facility] 2021-10-13 2021-10-13 Outpatient R [facility] [id number] Univers 08:30:00 09:17:02 [facility] 2021-10-11 2021-10-11 Outpatient R [facility] [id number] Univers 13:30:00 13:30:00 [facility] 2021-10-11 2021-10-11 Outpatient R [facility] [id number] Univers 13:30:00 13:30:00 [facility] 2021-10-06 2021-10-06 [facility] 1.2.840.114 [id number] Univers 00:00:00 00:00:00 Cody ROSARIOFRENCH 350.1.13.10 i ty of [place] 4.2.7.2.686 [place] [facility] [phone] Ak aurora PABLO 044 [facility] 2021-09-29 2021-09-[address] [facility], [facility] ERT [id number] Univers 00:44:00 02:37:00 MELITA evangelista [facility] 2021-09-29 2021-09-29 Emergency Arevalo, [facility] 1.2.840.114 [id number] Univers 00:44:00 02:37:00 Melita RAMESH 350.1.13.10 i ty of [place] 4[place]2.7.2.686 [place] GUSTINE [id number] [facility] [address] [place] 2021-09-11 2021-09-11 Outpatient [facility] [id number] Univers 10:37:44 23:59:00 CODY evangelista [facility] 2021-09-11 2021-09-11 [facility] 1.2.840.114 [id number] Univers 10:37:44 23:59:00 Encounter Cody RAMESH 350.1.13.10 ity of [place] 4.2.7.2.686 [place] CAMPUS [phone] [facility] [address] [place] 2021-09-11 2021-09-11 [facility] 1.2.840.114 [id number] Univers 00:00:00 00:00:00 Cody RAMESH 350.1.13.10 i ty of [place] 4[place].7.2.[place] [phone] Ak dical NAL 044 [facility] 2021-08-29 2021-08-29 Orders Doctor CAROLINE 1.2.840.114 [id number] Univers 00:00:00 00:00:00 Only Unassigned, MALACHI 350.1.13.10 [place] [facility] 4.2.7.2.686 Willy as [id number] [address] 2021-08-28 2021-08-28 Telephone [facility] 1.2.840.114 [id number] Univers 00:00:00 00:00:00 Cody Ramesh 350.1.13.10 i ty of [place] 4.2.7.2.686 [place] Profess[place] [id number] Ak dicme nal 044 [facility] 2021-08-28 2021-08-28 Telephone [facility] 1.2.840.114 [id number] Univers 00:00:00 00:00:00 Cody aRmesh 350.1.13.10 i ty of [place] 4.2.7.2.686 [place] Profess[place] [phone] [facility] 044 [facility] 2021-08-28 2021-08-28 Orders Doctor CAROLINE 1.2.840.114 [id number] Univers 00:00:00 00:00:00 Only Unassigned, MALACHI 350.1.13.10 [place] [facility] 4.2.7.2.686 [place]ly as [phone] [facility] 00[address] [place] 2021-08-24 2021-08-24 Telemedici [facility] 1.2.840.114 [id number] Univers 07:52:00 11:41:34 ne Visit Cody Ramesh 350.1.13.10 ity of [place] 4[place]2.[place].2.686 [place] Profess[place] [phone] [address] 2021-08-24 2021-08-24 [facility] [id number] Univers 09:00:00 09:00:00 CODY ity of [facility] 2021-08-24 2021-08-24 Telephone [facility] 1.2.840.114 [id number] Univers 00:00:00 00:00:00 Cody Ramesh 350.1.13.10 i ty of [place] 4[place]2.7.2.686 [place] Profess[place] [id number] [address] 2021-08-21 2021-08-21 Orders Doctor CAROLINE 1.2.840.114 [id number] Univers 00:00:00 00:00:00 Only Unassigned, MALACHI 350.1.13.10 [place] [facility] 4.2.7.2.686 Willy as [id number] [facility] [address] [place] 2021-08-21 2021-08-21 Telephone [facility] 1.2.840.114 [id number] Univers 00:00:00 00:00:00 Cody Ramesh 350.1.13.10 i ty of [place].2.[place] Profess[place] [phone] [address] 2021-08-15 2021-08-15 Transition Jacky Gabriel 1.2.840.114 [id number] Univers 00:00:00 00:00:00 of Care Tono [place] 350.1.13.10 ity of [place] 4[place]2.7.2.686 [place] [phone] [facility] [address] 2021-08-12 2021-08-13 [facility] [id number] Univers 09:57:00 15:12:00 CONSTANTINE ity [facility] 2021-08-12 2021-08-13 Emergency WattReyna Augusta [facility] 1.2.840 .114 [id number] Univers 09:57:00 15:12:00 Constantine Kemp 350.1.13.10 ity of [place] 4.2.7.2.686 [facility] [phone] [address] 2021-08-09 2021-08-09 Emergency [facility] [id number] Univers 21:33:00 23:08:00 GUILLERMINA ity [facility] 2021-08-09 2021-08-09 Emergency [facility] ERT [id number] Univers 21:33:00 23:08:00 GUILLERMINA evangelista [facility] 2021-08-09 2021-08-09 Emergency [facility] ERT [id number] Univers 21:33:00 23:08:00 GUILLERMINA evangelista [facility] 2021-08-09 2021-08-09 Emergency [facility] 1.2.840.114 [id number] Univers 21:33:00 23:08:00 Guillermina Ramesh 350.1.13.10 ity of [place] 4.2.7.2.686 [facility] [phone] [address] 2021-08-09 2021-08-09 Orders Doctor CAROLINE 1.2.840.114 [id number] Univers 00:00:00 00:00:00 Only Unassigned, MALACHI 350.1.13.10 [place] [facility] 4.2.7.2.686 [place] as [phone] [address] 2021-08-04 2021-08-04 Orders Doctor CAROLINE 1.2.840.114 [id number] Univers 00:00:00 00:00:00 Only Unassigned, MALACHI 350.1.13.10 [place] [facility] 4.2.7.2.686 Willy as [phone] [address] 2021-08-01 2021-08-01 Patient Yakov [facility] 1.2.840.114 [id number] Univers 00:00:00 00:00:00 Outreach Barbara Ramesh 350.1.13.10 [place] of [place].2.[place] [id number] Ak dical nal 044 [facility] 2021-07-19 2021-07-19 Outpatient R MELONY [facility] [id number] Univers 09:00:00 10:31:58 GURPREET itryanne [facility] 2021-07-19 2021-07-19 Outpatient R MELONY [facility] [id number] Univers 09:00:00 10:31:58 GURPREETDESIRAE evangelista [facility] 2021-07-19 2021-07-19 Outpatient R MELONY [facility] [id number] Univers 09:00:00 10:31:58 GURPREETDESIRAE evangelista [facility] 2021-07-19 2021-07-19 Ancillary Roxana Nunn [facility] 1 .2.840.114 [id number] Univers 08:50:11 10:31:58 Visit Gurpreet Ty [place] 350.1.13.10 [place] of [place] [id number] Ak dical nal 178 [facility] 2021-07-13 2021-07-13 Outpatient R ANETTE [facility] [id number] Univers 10:30:00 10:28:36 RHETT [facility] 2021-07-13 2021-07-13 Outpatient R ANETTE [facility] [id number] Univers 10:30:00 10:28:36 RHETT [facility] 2021-07-13 2021-07-13 Outpatient R ANETTE [facility] [id number] Univers 10:30:00 10:28:36 [facility]-07-13 2021-07-13 Imm/Inj Nurse, Adc Pob Immunization [facility] 1.2.840.114 [id number] Univers 10:28:30 10:28:36 Visit Rhett Chaparro 350.1.13 .10 [place] [phone] [place]ical nal [address] [facility] 2021-07-13 2021-07-13 [facility] 1.2.840.114 [id number] Univers 00:00:00 00:00:00 Cody Ramesh 350.1.13.10 [place] [phone] Ak dical nal [address] [place] [address] 2021-07-13 2021-07-13 [facility] 1.2.840.114 [id number] Univers 00:00:00 00:00:00 Cody Ramesh 350.1.13.10 [place] [phone] Ak dical nal [address] [place] [address] 2021-07-12 2021-07-12 Patient Yakov [facility] 1.2.840.114 [id number] Univers 00:00:00 00:00:00 Outreach Barbara Ramesh 350.1.13.10 [id number] [phone] Ak dical nal [address] [place] [address] 2021-07-12 2021-07-12 Patient Yakov [facility] 1.2.840.114 [id number] Univers 00:00:00 00:00:00 Outreach Barbara Ramesh 350.1.13.10 [id number] [phone] Ak dical nal [address] [place] [address] 2021-07-07 2021-07-07 Patient Caro [facility] 1.2.840.114 [id number] Univers 00:00:00 00:00:00 Secure Msg Cody Ramesh 350.1.13.10 [place] [phone] Ak dical nal [address] [place] [address] 2021-07-05 2021-07-05 Cardiopulmonary Technologist 2, Adc Lab [facility] 1.2.840.114 [id number] Univers 15:11:31 15:26:31 Visit Cody Elizondo 350.1.13.10 [id number] [phone] Ak dical nal [address] [facility] 2021-07-05 2021-07-05 Nurse Med, Medicare Wellness [facility] 1.2.840.114 [id number] Univers 13:54:53 15:05:22 Visit Cody Elziondo 350.1.13.10 [place] [phone] [place] dical nal 044 [facility] 2021-07-05 2021-07-05 Office Caro [facility] [id number] Univers 12:56:20 15:03:52 Visit Cody Ramesh 350.1.13.10 [place] [phone] [place] dical nal 044 [facility] 2021-07-05 2021-07-05 [facility] [id number] Univers 12:56:20 13:16:20 Visit Cody Ramesh 350.1.13.10 [place] [phone] Ak dical nal 044 [facility] 2021-07-05 2021-07-05 Outpatient R CARO [facility] [id number] Univers 13:00:00 13:00:00 CODY evangelista of [facility] 2021-07-05 2021-07-05 Orders Doctor VELAZQUEZ [id number] Univers 00:00:00 00:00:00 Only Unassigned, MALACHI 350.1.13.10 [place] [facility] 4.2.7.2.686 Willy as [phone] [address] 2021-07-03 2021-07-03 Office [facility] [id number] Univers 10:52:55 11:22:22 Visit Tanisha Ramesh 350.1.13.10 [place] [phone] Ak dical nal 059 [facility] 2021-07-03 2021-07-03 Outpatient R DANIEL, [facility] [id number] Univers 10:40:00 10:40:00 TANISHA evangelista o [facility] 2021-06-22 2021-06-23 Outpatient R EDDONI, [facility] [id number] Univers 10:40:00 14:23:56 CODY ity [facility] 2021-06-22 2021-06-23 Outpatient R EDEMEGEENG, [facility] [id number] Univers 10:40:00 14:23:56 CODY ity [facility] 2021-06-22 2021-06-23 Outpatient R EDDONI, [facility] [id number] Univers 10:40:00 14:23:56 CODY ryanne [facility] 2021-05-31 2021-05-31 Outpatient R DANIEL, [facility] [id number] Univers 09:00:00 09:00:00 TANISHA evangelista o [facility] 2021-05-29 2021-05-29 Orders Doctor CAROLINE [id number] Univers 00:00:00 00:00:00 Only Unassigned, MALACHI 350[place]1.13.10 [place] [facility] [id number] [place] [phone] [address] 2021-04-11 2021-04-11 Outpatient R TIFFANY, [facility] [id number] Univers 09:00:00 09:54:14 NORTH ity [facility] 2021-04-11 2021-04-11 Outpatient R TIFFANY, [facility] [id number] Univers 09:00:00 09:54:14 NORTH ity [facility] 2021-04-11 2021-04-11 Outpatient R TIFFANY, [facility] [id number] Univers 09:00:00 09:54:14 NORTH ity [facility] 2021-03-14 2021-03-14 Outpatient R EDEMEKRISTY, [facility] [id number] Univers 08:40:00 08:40:00 CODY [facility] 2021-02-212021-02-21 Outpatient R CARO [facility] [id number] Univers 16:45:00 16:45:00 CODY ryanne [facility] 2021-02-21 2021-02-21 Outpatient R CARO [facility] [id number] Univers 16:45:00 16:45:00 CODY ryanne [facility] 2021-02-21 2021-02-21 Outpatient R CARO [facility] [id number] Univers 16:45:00 16:45:00 CODY ryanne [facility] 2021-02-08 2021-02-08 Outpatient R DIONICIO [facility] [id number] Univers 16:10:00 07:27:42 SHAD [facility] 2021-02-08 2021-02-08 Outpatient R DIONICIO [facility] [id number] Univers 16:10:00 07:27:42 SHAD [facility] 2021-02-08 2021-02-08 Outpatient R DIONICIO [facility] [id number] Univers 16:10:00 07:27:42 SHAD [facility] 2021-01-11 2021-01-11 Outpatient R DIONICIO [facility] [id number] Univers 16:20:00 16:08:37 SHAD [facility] 2021-01-11 2021-01-11 Outpatient R DIONICIO [facility] [id number] Univers 16:20:00 16:08:37 SHAD ryanne [facility] 2021-01-05 2021-01-05 Outpatient SKIP BURTON [facility] [id number] Univers 08:00:00 08:00:00 SKIP HAWLEY ryanne [facility] 2020-12-28 2020-12-28 Outpatient SKIP BURTON [facility] [id number] Univers 07:38:16 23:59:00 SKIP HAWLEY ryanne [facility] 2020-12-12 2020-12-12 Outpatient SKIP BURTON [facility] [id number] Univers 11:00:00 11:00:00 SKIP HAWLEY ryanne [facility] 2020-11-30 2020-11-30 Outpatient R CARO [facility] [id number] Univers 13:00:00 13:00:00 CODY tonja [facility] 2020-08-31 2020-08-31 Outpatient R DANIEL, [facility] [id number] Univers 09:20:00 09:20:00 TANISHA lealryanne o [facility] 2020-08-18 2020-08-18 Outpatient R AUGUSTIN [facility] [id number] Univers 13:20:00 13:20:00 BARRIE ity [facility] 2020-06-14 2020-06-14 Outpatient R DEMETRIA [facility] [id number] Univers 08:40:00 08:40:00 BARRIE tonja [facility] 2020-03-31 2020-03-31 Outpatient R DEMETRIA [facility] [id number] Univers 08:30:00 08:30:00 BARRIE tonja [facility] 2020-03-10 2020-03-10 Outpatient R DEMETRIA [facility] [id number] Univers 08:40:00 08:40:00 BARRIE ryanne [facility] 2020-02-29 2020-02-29 Outpatient R DANIEL, [facility] [id number] Univers 09:00:00 09:00:00 TANISAH evangelista frances [facility] 2020-01-21 2020-01-21 Outpatient R AUGUSTIN [facility] [id number] Univers 12:20:00 12:20:00 BARRIE tonja [facility] 2019-12-31 2019-12-31 Outpatient R ABNER [facility] [id number] Univers 08:40:00 08:40:00 TUYET tonja [facility] 2019-12-28 2019-12-28 Outpatient R LUNA, [facility] [id number] Univers 09:00:00 09:00:00 ZHANE tonja [facility] 2019-12-10 2019-12-10 Outpatient R DEMETRIA [facility] [id number] Univers 13:00:00 14:24:38 BARRIE melryanne [facility] 2019-11-26 2019-11-26 Outpatient R LUNA [facility] [id number] Univers 09:15:00 10:43:36 ZHANE evangelista [facility] 2019-11-12 2019-11-17 Inpatient X SHARDA [facility] [id number] Univers 14:47:43 14:42:00 JOSE evangelista [facility] 2019-08-28 2019-08-28 Outpatient R DANIEL [facility] [id number] Univers 11:00:00 11:35:09 TANISHA evangelista o f [facility] Results This patient has no known results.
[2023-05-14 17:49] VITALS: BMI 42.4
[2023-05-14] MEDS ORDERED: HOME MED [ALBUTEROL INHALER 60 PUFF/8 GM] IH PRN (17:57)
--- NOTE | 2023-05-14 17:59 | P.CNS ---
Date of Consult: 05/14/23 Reason for Consult: Medical management Requesting Physician: Anjel Saleh Chief Complaint: Right knee pain\osteoarthritis History of Present Illness: Patient is a 62-year-old female with a past medical history significant for hypertension, HLD, COPD, osteoarthritis, DM 2, gout, nicotine dependence, GERD who presents for a planned procedure with her orthopedic surgeon. Patient's been having Right knee osteoarthritis for quite some time and has attempted conservative measures, physical therapy, steroid shots and pain medications without any relief in symptoms. Patient rated right knee pain before procedure as 10/10 in severity and described pain as aching in quality. Patient reported associated signs and symptoms of right lower extremity weakness. Patient denies any other signs or symptoms. Symptoms are aggravated by movement or relieved by nothing. Patient had a right knee replacement. Patient tolerated procedure. Patient in bed resting comfortably. Allergies pneumococcal vaccine [From Prevnar 13 (PF)] Allergy (Verified 05/13/23 08:14) Boils Home Medications: Allopurinol 100 mg PO DAILY 02/07/23 Aspirin [Low Dose Aspirin EC] 81 mg PO DAILY 02/07/23 Budesonide/Formoterol Fumarate [Budesonide-Formoterol 160-4.5] 2 puff IH BID 02/07/23 Carvedilol [Coreg] 25 mg PO BID 02/07/23 Duloxetine HCl [Cymbalta] 60 mg PO DAILY 02/07/23 Fluticasone Propionate [Flonase Allergy Relief] 1 spray NS BID 02/07/23 Furosemide [Lasix*] 40 mg PO DAILY 02/07/23 Gabapentin [Neurontin] 600 mg PO TID 02/07/23 Glimepiride [Amaryl*] 2 mg PO DAILY 02/07/23 Hydralazine HCl 50 mg PO BID 02/07/23 Ipratropium [place] 2 spray NS BID 02/07/23 Lidocaine 5% [Lidocaine HCl] 1 appl TOP BIDP PRN 02/07/23 Metformin HCl [Glucophage*] 500 mg PO BIDWM 02/07/23 Omeprazole [Prilosec] 40 mg PO DAILY 02/07/23 Potassium Chloride [K-Dur] 20 meq PO DAILY 02/07/23 Hydrocodone 7.5/APAP 325 [[place] 7.5/325 mg*] 1 tab PO Q6HP PRN #20 tab 04/19/23 predniSONE [Deltasone] 20 mg PO DAILY #5 tab 02/22/23 Albuterol Inhaler [Ventolin Inhaler] 2 puff IH Q6H PRN 05/13/23 Indomethacin 50 mg PO DAILY 05/13/23 Rosuvastatin Calcium 20 mg PO DAILY 05/13/23 - Past Medical/Surgical History Diabetic: Yes -: YEHUDA -: HTN -: DM -: GOUT -: OA -: High cholesterol -: Smoker -: left total knee replacement -: right carpal tunnel -: 2 c sections -: hysterectomy -: gall bladder - Family History Mother Medical History: Kidney disease Notes: COPD Father Medical History: Heart disease Brother Medical History: Stroke, Cancer Notes: alzheimers Sister Medical History: Cancer Notes: AIDS - Social History Smoking Status: Current every day smoker Counseled patient to stop smoking for: less than 10 minutes Smoking therapy provided: Yes Patient receptive to therapy: Yes Alcohol use: No CD- Drugs: No Caffeine use: No Place of Residence: Home Review of Systems General: Weakness Eyes: Unremarkable ENT: Unremarkable Respiratory: Unremarkable Cardiovascular: Unremarkable Gastrointestinal: Unremarkable Musculoskeletal: Other (Right knee pain.) Integumentary: Unremarkable Neurological: Weakness (Right lower extremity weakness) Lymphatics: Unremarkable Physical Examination Temp Pulse Resp BP Pulse Ox 97.1 F 62 14 122/65 05/14/23 17:02 05/14/23 17:02 05/14/23 17:02 05/14/23 17:02 General: Alert, In no apparent distress, Oriented x3, Cooperative HEENT: Atraumatic, PERRLA, Mucous membr. moist/pink, EOMI, Sclerae nonicteric Neck: Supple, 2+ carotid pulse no bruit, No LAD, Without JVD or thyroid abnormality Respiratory: Clear to auscultation bilaterally, Normal air movement Cardiovascular: No edema, Regular rate/rhythm, Normal S1 S2 Capillary refill: <2 Seconds Gastrointestinal: Normal bowel sounds, Soft and benign, Non-distended, No tenderness Musculoskeletal: No clubbing, No tenderness Integumentary: No rashes, Other (Right knee incision.) Neurological: Normal speech, Normal tone, Normal affect Lymphatics: No axilla or inguinal lymphadenopathy Conclusions/Impression: --Right knee pain\osteoarthritis. Status post right knee total arthroplasty. Surgery on board. Patient on CPM machine. PT eval and treat. We will await further recommendation from orthopedic surgeon. Continue supportive care. --DM2 with neuropathy. BS monitoring with sliding scale insulin. Continue gabapentin for neuropathy. -- Hypertension. Poorly controlled. Continue home medications and hydralazine as needed --Hyperlipidemia. Continue home medication. . -- GERD. Continue Protonix. --Obesity. Likely secondary to excess calories intake. Patient counseled on weight reduction, diet and excise therapy. -- Anemia of chronic disease. H&H stable. We will continue monitor hemoglobin and transfuse if less than 7.0. . --YEHUDA. Continue supportive care. --Nicotine dependence. Patient counseled on tobacco cessation and placed on nicotine patch. --Gout. Continue home medications. --COPD. Stable. Continue home medications and supportive care. --DVT prophylaxis with SCDs. Continue chemical prophylaxis in a.m. Physician Review: Patient Assessed, Agree with Above Assessment and Plan Critical Care: No
[2023-05-14] MEDS: HYDROCODONE/APAP 7.5/325 MG TAB PO PRN (18:03)
[2023-05-14] MEDS: CEFAZOLIN 1 GM in NA CHLORIDE 0.9% 50 ML IVPB SCH (18:04)
[2023-05-14] MEDS ORDERED: HYDRALAZINE HCL 20 MG/ML VIAL IV PRN (18:07)
--- NOTE | 2023-05-14 18:17 | P.CNS ---
Date of Consult: 05/14/23 Reason for Consult: Medical Mgmt Requesting Physician: Keo Davison Chief Complaint: Right knee pain\osteoarthritis Allergies pneumococcal vaccine [From Prevnar 13 (PF)] Allergy (Verified 05/13/23 08:14) Boils Home Medications: Allopurinol 100 mg PO DAILY 02/07/23 Aspirin [Low Dose Aspirin EC] 81 mg PO DAILY 02/07/23 Budesonide/Formoterol Fumarate [Budesonide-Formoterol 160-4.5] 2 puff IH BID 02/07/23 Carvedilol [Coreg] 25 mg PO BID 02/07/23 Duloxetine HCl [Cymbalta] 60 mg PO DAILY 02/07/23 Fluticasone Propionate [Flonase Allergy Relief] 1 spray NS BID 02/07/23 Furosemide [Lasix*] 40 mg PO DAILY 02/07/23 Gabapentin [Neurontin] 600 mg PO TID 02/07/23 Glimepiride [Amaryl*] 2 mg PO DAILY 02/07/23 Hydralazine HCl 50 mg PO BID 02/07/23 Ipratropium [place] 2 spray NS BID 02/07/23 Lidocaine 5% [Lidocaine HCl] 1 appl TOP BIDP PRN 02/07/23 Metformin HCl [Glucophage*] 500 mg PO BIDWM 02/07/23 Omeprazole [Prilosec] 40 mg PO DAILY 02/07/23 Potassium Chloride [K-Dur] 20 meq PO DAILY 02/07/23 Hydrocodone 7.5/APAP 325 [[place] 7.5/325 mg*] 1 tab PO Q6HP PRN #20 tab 02/20/23 predniSONE [Deltasone] 20 mg PO DAILY #5 tab 02/22/23 Albuterol Inhaler [Ventolin Inhaler] 2 puff IH Q6H PRN 05/13/23 Indomethacin 50 mg PO DAILY 05/13/23 Rosuvastatin Calcium 20 mg PO DAILY 05/13/23 - Past Medical/Surgical History Diabetic: Yes -: YEHUDA -: HTN -: DM -: GOUT -: OA -: High cholesterol -: Smoker -: left total knee replacement -: right carpal tunnel -: 2 c sections -: hysterectomy -: gall bladder - Family History Mother Medical History: Kidney disease Notes: COPD Father Medical History: Heart disease Brother Medical History: Stroke, Cancer Notes: alzheimers Sister Medical History: Cancer Notes: AIDS - Social History Smoking Status: Current every day smoker Alcohol use: No CD- Drugs: No Caffeine use: No Place of Residence: Home Physical Examination Temp Pulse Resp BP Pulse Ox 97.1 F 62 14 122/65 05/14/23 17:02 05/14/23 17:02 05/14/23 18:03 05/14/23 17:02
--- NOTE | 2023-05-14 18:31 | OP ---
Date of Procedure: 05/14/2023 Surgeon: Anjel Saleh MD Preoperative Diagnosis: Right knee severe arthritic changes. Postoperative Diagnosis: Right knee severe arthritic changes. Procedure: Right total knee arthroplasty using the [employer] Skully Helmetsguard system. Estimated Blood Loss: 100 cc. Complications: There were no complications. Pathology Specimens: No pathology specimens sent. Indications For Operation: Ms. Choudhary is a patient, who was seen several months before for a left to nany knee arthroplasty. She did extremely well from that. She unfortunately shares the same extensiv e articular damage and arthritis of the right. Risks, benefits, and alternatives of different method s of treating this have been discussed with her. She has exhausted conservative care at this time an d opts for total knee arthroplasty. The specific risks associated this discussed her as well. She a grees to proceed. Procedure In Detail: She does have a block in the holding area and she was brought back to the opera ting room. General anesthesia was easily obtained by the Anesthesia staff. Following this, a well-p added tourniquet placed on superior right thigh. Her right lower extremity was then prepped draped i n usual sterile fashion procedure. After this, a standard anterior incision was taken down carefully through the skin and soft tissues. Meticulous hemostasis being maintained using Bovie electrocauter y. This leads down through some adipose tissue until the extensor mechanism was exposed and through the correct layer. After this, the superior and medial pole of patella was marked and a standard med ial parapatellar arthrotomy was then performed. Some fat pad was removed to allow for better visuali zation and the anterior cruciate ligament and the medial and lateral menisci were then excised. Afte r this, a standard intramedullary alignment guide was then placed without difficulty and the distal c ut was made. It was then sized. It should be noted that she had a size 67.5 on her left side; howev er, it appeared that this would not on the right, although only slightly. Decision was made to go he ad and move forward with a 70 to avoid notching. It was then cut in standard fashion. After this, a ttention was then turned to the tibia. The tibia was cut in standard fashion and it was then sized a nd trialed. The knee comes to full flexion and full extension and appears to be balanced in both fle xion and extension. Attention was then turned to patella. It was then calipered and cut, and the tr ial patella was then placed. It appears to glide ideally without sign of maltracking. After this, t he trial components were removed and the box was cut in the femur. The bone plug was placed as well as punching of the tibia. The bony surfaces were then cleaned and prepared for cementation and all o f the final components with the exception of the tibial polyethylene were then cemented into place wi th removal of any unsupported cement. This was allowed to harden. After this, the knee was then bro ught through full range of motion and the knee again appears to glide ideally and appears to be stabl e to both varus and valgus stress. The knee was then copiously irrigated and the final polyethylene was then placed with placement of a locking bar. It was again irrigated and search for any unsupport ed cement was performed. The extensor mechanism was then repaired using heavy Ethibond sutures. Aft er this, the skin was then closed using interrupted Vicryl sutures followed by ced. The patient was placed in a well-padded sterile dressing, awakened, and taken to the recovery room in good condit ion. There were no complications. SE/MODL Voice ID: [id number] Report ID: [id number]
[2023-05-14] MEDS ORDERED: LIDOCAINE 5% TOP PRN (18:47)
[2023-05-14 18:55] LABS: Magnesium 2.3 mg/dL (1.6-2.4); Phosphorus 4.3 mg/dL (2.5-4.9)
[2023-05-14] MEDS ORDERED: HOME MED 1 EA UNK (Hydralazine Hcl [Hydralazine Hcl] 50 MG Tablet) PO SCH (21:00)
[2023-05-14] MEDS: IPRATROPIUM BROMIDE NAS SCH (21:00)
[2023-05-14] MEDS ORDERED: HOME MED 1 EA UNK (Gabapentin [Neurontin] 600 MG Tablet) PO SCH (21:00)
[2023-05-14] MEDS: HOME MED 1 EA UNK (Fluticasone Propionate [Flonase Allergy Relief] 9.9 ML Spray.Susp) IH SCH (21:00)
[2023-05-14] MEDS: carvediloL 25 MG TAB PO SCH (21:30)
[2023-05-14] MEDS: GABAPENTIN 300 MG CAP PO SCH (21:30)
[2023-05-14] MEDS: HYDRALAZINE HCL 25 MG TABLET PO SCH (21:31)
[2023-05-14] MEDS: INSULIN -REGULAR HUMAN 50 UNIT/0.5 ML ML SQ SCH (21:32)
[2023-05-15] MEDS: HYDROCODONE/APAP 7.5/325 MG TAB PO PRN ×2 (00:06→06:38)
[2023-05-15] MEDS: CEFAZOLIN 1 GM in NA CHLORIDE 0.9% 50 ML IVPB SCH ×2 (00:07→09:05)
[2023-05-15 06:03] LABS: Absolute Lymphocytes (CBC) 1.3 K/uL (0.7-4.9); Lymphocytes % 12.4 % (15.3-44.8); MCV 86.3 fL (80-100); RBC Red Blood Cell Count 3.47 M/uL (3.86-4.86)
[2023-05-15 06:21] LABS: Potassium 4.8 mEq/L (3.5-5.1)
[2023-05-15] MEDS: ENOXAPARIN 30 MG/0.3 ML SQ SCH ×2 (06:34→09:03)
--- NOTE | 2023-05-15 08:41 | P.DS ---
Discharge Date: 05/15/23 Disposition: ROUTINE DISCHARGE Discharge Condition: GOOD Reason for Admission: Right knee pain\osteoarthritis Consultations: Orthopedics Brief History of Present Illness: Patient is a 62-year-old female with a past medical history significant for hypertension, HLD, COPD, osteoarthritis, DM 2, gout, nicotine dependence, GERD who presents for a planned procedure with her orthopedic surgeon. Patient's been having Right knee osteoarthritis for quite some time and has attempted conservative measures, physical therapy, steroid shots and pain medications without any relief in symptoms. Patient rated right knee pain before procedure as 10/10 in severity and described pain as aching in quality. Patient reported associated signs and symptoms of right lower extremity weakness. Patient denies any other signs or symptoms. Symptoms are aggravated by movement or relieved by nothing. Patient had a right knee replacement. Patient tolerated procedure. Patient in bed resting comfortably. Hospital Course: Patient has done well during hospital stay. Dr. Saleh has called in patient's DVT prophylaxis and pain medication. Patient is clinically doing well and patient will get choice home health to work with physical therapy. At this time, patient is stable for discharge home. Vital Signs/Physical Exam: Temp Pulse Resp BP Pulse Ox 96.9 F 65 19 133/66 93 05/15/23 04:00 05/15/23 04:00 05/15/23 06:38 05/15/23 04:00 05/15/23 06:38 General: Alert, In no apparent distress, Oriented x3 Laboratory Data at Discharge: WBC 10.20 thou/uL (4.3-10.9) 05/15/23 05:28 Hgb 9.4 g/dL (12.0-15.0) L 05/15/23 05:28 Hct 30.0 % (36.0-45.0) L 05/15/23 05:28 Plt Count 253 thou/uL (152-406) 05/15/23 05:28 PT 10.8 SECONDS (9.5-12.5) 05/13/23 08:35 INR 0.98 05/13/23 08:35 APTT 33.2 SECONDS (24.3-36.9) 05/13/23 08:35 Sodium 135 mEq/L (136-145) L 05/15/23 05:28 Potassium 4.8 mEq/L (3.5-5.1) 05/15/23 05:28 BUN 23 mg/dL (7-18) H 05/15/23 05:28 Creatinine 1.12 mg/dL (0.55-1.02) H 05/15/23 05:28 Glucose 197 mg/dL (74-106) H 05/15/23 05:28 Phosphorus 4.3 mg/dL (2.5-4.9) 05/14/23 18:24 Magnesium 2.3 mg/dL (1.6-2.4) 05/14/23 18:24 Total Bilirubin 0.4 mg/dL (0.2-1.0) 05/13/23 08:35 AST 16 U/L (15-37) 05/13/23 08:35 ALT 21 U/L (13-56) 05/13/23 08:35 Alkaline Phosphatase 95 U/L (45-117) 05/13/23 08:35 Home Medications: Albuterol Inhaler [Ventolin Inhaler*] 2 puff NS Q6H PRN 05/15/23 Allopurinol 100 mg PO DAILY 05/15/23 Aspirin [Aspirin EC] 81 mg PO DAILY 05/15/23 Budesonide/Formoterol Fumarate [Budesonide-Formoterol 160-4.5] 2 puff IH BID 05/15/23 Carvedilol [Coreg] 25 mg PO BID 05/15/23 Duloxetine HCl [Cymbalta] 60 mg PO DAILY 05/15/23 Fluticasone Propionate [Flonase Allergy Relief] 1 spray NS BID 05/15/23 Furosemide [Lasix] 40 mg PO DAILY 05/15/23 Gabapentin 600 mg PO TID 05/15/23 Glimepiride 2 mg PO DAILY 05/15/23 Hydralazine HCl 50 mg PO BID 05/15/23 Hydrocodone 7.5/APAP 325 [[place] 7.5/325 mg*] 1 tab PO Q6H PRN 05/15/23 Indomethacin 50 mg PO DAILY 05/15/23 Ipratropium [place] 2 spray NS BID 05/15/23 Metformin HCl 500 mg PO BID 05/15/23 Omeprazole [Prilosec] 40 mg PO DAILY 05/15/23 Potassium Chloride [K-Dur] 20 meq PO DAILY 07/12/23 Rosuvastatin Calcium 20 mg PO DAILY 05/15/23 predniSONE [Prednisone*] 20 mg PO DAILY 05/15/23 Physician Discharge Instructions: -DC IV and DC home -Follow-up with PCP in 1 to 2 weeks -Follow-up with orthopedics in 1 week -Please call Dr. Davison at [phone] if any questions regarding hospital stay -Please call nursing station at [phone] if any nursing or medication questions -Return to the emergency room if symptoms worsen Diet: Regular Activity: Fall precautions Followup: Anjel Saleh MD [ACTIVE - CAN ADMIT] - 1-2 Weeks (Call to schedule an appointment) Darian Dwyer MD [Primary Care Provider] - Time spent managing pt's care (in minutes): 35
[2023-05-15] MEDS ORDERED: ASPIRIN EC 81 MG TAB PO SCH (09:00)
[2023-05-15] MEDS ORDERED: DULOXETINE 30 MG CAP PO SCH (09:00)
[2023-05-15] MEDS: IPRATROPIUM BROMIDE NAS SCH (09:00)
[2023-05-15] MEDS ORDERED: HOME MED 1 EA UNK (Rosuvastatin Calcium [Rosuvastatin Calcium] 20 MG Tablet) PO SCH (09:00)
[2023-05-15] MEDS ORDERED: POTASSIUM CHLORIDE 20 MEQ PO SCH (09:00)
[2023-05-15] MEDS ORDERED: PANTOPRAZOLE 40MG TABLET PO SCH (09:00)
[2023-05-15] MEDS ORDERED: ROSUVASTATIN 10 MG TAB PO SCH (09:00)
[2023-05-15] MEDS ORDERED: FUROSEMIDE 40 MG TABLET PO SCH (09:00)
[2023-05-15] MEDS ORDERED: predniSONE 20 MG TAB PO SCH (09:00)
[2023-05-15] MEDS ORDERED: POTASSIUM CL SA 10 MEQ TAB PO SCH (09:00)
[2023-05-15] MEDS ORDERED: HOME MED 1 EA UNK (Omeprazole [Prilosec] 40 MG Capsule.Dr) PO SCH (09:00)
[2023-05-15] MEDS: HOME MED 1 EA UNK (Fluticasone Propionate [Flonase Allergy Relief] 9.9 ML Spray.Susp) IH SCH (09:00)
[2023-05-15] MEDS ORDERED: allopurinoL 100 MG TAB PO SCH (09:00)
[2023-05-15] MEDS ORDERED: HOME MED 1 EA UNK (Duloxetine Hcl [Cymbalta] 60 MG Capsule.Dr) PO SCH (09:00)
[2023-05-15] MEDS: INSULIN -REGULAR HUMAN 50 UNIT/0.5 ML ML SQ SCH (09:03)
[2023-05-15] MEDS: HYDRALAZINE HCL 25 MG TABLET PO SCH (09:04)
[2023-05-15] MEDS: carvediloL 25 MG TAB PO SCH (09:04)
[2023-05-15] MEDS: GABAPENTIN 300 MG CAP PO SCH (09:05)
[2023-05-15 10:08] VITALS: O2SAT 98
[2023-05-15 11:40] VITALS: BP 134/68; TEMP 97.5
== END 2023-05-15 11:55 | disposition home health service (06) ==
LOC: OR 10:32 → 4TH 15:34
PROVIDERS: ADMIT Orthopaedic Surgery; ATTEND Orthopaedic Surgery
PROC: 0SR90JA Replacement of Right Hip Joint with Synthetic Substitute, Uncemented, Open Approach (ICD-10-PCS; principal; 2023-05-14 13:00)
DX: M17.11 Unilateral primary osteoarthritis, right knee (principal); I10 Essential (primary) hypertension; E78.5 Hyperlipidemia, unspecified; J44.9 Chronic obstructive pulmonary disease, unspecified; K21.9 Gastro-esophageal reflux disease without esophagitis; E11.9 Type 2 diabetes mellitus without complications; F17.210 Nicotine dependence, cigarettes, uncomplicated; M10.9 Gout, unspecified
CPT/HCPCS: 27130; 85025 ×2; 81001; 80048; 36415 ×3; 86900; 83735; 86850; 84100; 85610; 86901; 82947 ×5; 88304; 88311; 85730; 80053; 97110; 97116; 97139; 97161; J1815 ×3; J7512; J3475; J2704; J0171; J2001 ×4; J1650 ×2; J2250; J1170 ×2; J3010 ×2; J1100; G0378 ×4; J7030 ×2; J0690 ×3

== ENCOUNTER 2023-07-25 17:26 | Emergency (ER) | payer OTHER ==
--- OUTSIDE RECORDS SUMMARY | 2023-07-25 17:57 | XMS REPORT | Continuity of Care Document ---
:1960 Author Organization [facility] t Address [address] [place] [address]. [address] [place] [address] Care Team Providers Name Role Phone Cody Dwyer MD Primary Care Physician CODY DWYER Attending Clinician Unavailable Cody Dwyer MD Attending Clinician Barbara Nagy LCSW Attending Clinician TANISHA DE LOS SANTOS Attending Clinician Unavailable Doctor Unassigned, Wing Attending Clinician Unavailable Franklin Goldman MD Attending Clinician FRANKLIN GOLDMAN Attending Clinician Unavailable 2, [facility] Attending [...] Attending Clinician Serina Lugo MD Attending Clinician [phone] Tanisha De Los Santos MD Attending [...] Clinician Unavailable Maximilian Davies Attending Clinician MELITA MONTEZ Attending Clinician Unavailable Melita Garcia Attending Clinician Tono Rico RN Attending Clinician Unavailable CONSTANTINE ALVAREZ Attending Clinician Unavailable Reyna Watt MD Attending Clinician Constantine Alvarez MD Attending Clinician GUILLERMINA PALMA Attending Clinician Unavailable Guillermina Palma DO Attending Clinician Roxana Nunn OT Attending Clinician Unavailable Nurse, [facility] Pob Immunization Attending Clinician Unavailable Med, Medicare Wellness [facility] Mark Attending Clinician Unavailab [place] Attending Clinician Unavailable SHAD GREENBERG Attending Clinician Unavailable SKIP HAWLEY Attending Clinician Unavailable SKIP HAWLEY Attending Clinician Unavailable BARRIE AUGUSTIN Attending Clinician Unavailable TUYET LEVINE Attending Clinician Unavailable ZHANE CARRASCO Attending Clinician Unavailable JOSE ROBIN Attending Clinician Unavailable FRANKLIN GOLDMAN Admitting Clinician Unavailable CODY DWYER Admitting Clinician Unavailable TANISHA DE LOS SANTOS Admitting Clinician Unavailable RAMIREZ Admitting Clinician Unavailable PEDRO PITT Admitting Clinician Unavailable MELITA MONTEZ Admitting Clinician Unavailable CONSTANTINE ALVAREZ Admitting Clinician Unavailable Constantine Alvarez MD Admitting Clinician SKIP HAWLEY Admitting Clinician Unavailable JOSE ROBIN Admitting Clinician Unavailable Payers Payer Name Policy Type Policy Number Effective Date Expiration Date Satish [facility] DUAL [id number] 2019 COMP HMO D SNP 00:00:00 [facility] STAR PLUS [id number] 2016 00:00:00 [facility] [id number] DUAL COMPLETE CHOICE Problems Condition Condition Condition [...] joint 2-04 ity of of of 00:00: [place] multiple multiple 00 Medica l sites sites Branch Left foot Left foot Disease Active Uni vers pain pain 2-04 ity of 00:00: [place] 00 Medical Branch Obesity Obesity Disease Active Univers (BMI (BMI 1-04 ity of 30-39.9) 30-39.9) 00:00: [place] 00 [facility] Disease Active 2020-11 Unive rs discharge discharge 0-21 ity of follow-up [place]up 00:[place] Right Right Disease Active 2020-11 Univers groin pain groin pain 0-21 it y of 00:00: [place] 00 Medical Branch Supraumbil Supraumbil Disease Active 2020-11 U anshul ical ical 0-21 ity of hernia hernia 00:00: [place] 00 Medical Branch Colon, Colon, Disease Active 2020-11 Univers diverticul diverticul 0-21 it y of osis osis 00:00: [place] 00 Medical Branch Primary Primary Disease Active 2020-11 Univers osteoarthr osteoarthr 0-21 it y of itis of itis of 00:00: [place] both knees both knees 00 Me dical Branch Primary Primary Disease Active 2020-11 Univers osteoarthr osteoarthr 0-21 it y of itis of itis of 00:00: [place] both both 00 Medical shoulders 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 2020-11 Uni vers (current) (current) 0-21 ity of use of use of 00:00: [place] non-steroi non-steroi 00 [place] dical laura laura Branch anti-infla anti-infla mmatories mmatories (nsaid) (nsaid) 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 acute acute 0-09 ity of exacerbati exacerbati [place] Medical Branch [place] Disease Active Univers frequently frequently 9- it y of 00:00: [place] [facility] Infective Infective Disease Active Uni vers urethritis urethritis 5-11 it y of 00:00: [place] 00 Medical Branch Proteus Proteus Disease Active Univers mirabilis mirabilis 5-11 ity of infection infection 00:00[place] Hypertensi Hypertensi Disease Active U [...] against 00:00[place] influenza influenza 00 [facility] Branch Yeast Yeast Disease Active Univers infection [...] both both 00:00: [place] shoulders shoulders 00 [facility] Branch Gastroesop Gastroesop Disease Active U anshul hageal hageal 1-27 ity of reflux reflux 00:00: [place] disease disease 00 Medical with with Branch esophagiti esophagiti s without s without hemorrhage hemorrhage Dyslipidem Dyslipidem Disease Active U kristopherers ia ia 1-27 ity of 00:00: [place] 00 Medical Branch Anxiety Anxiety Disease Active Univers and and 1-27 ity of depression depression 00:[place] Chronic Chronic Disease Active Univers midline midline 1-27 ity of low back low back 00:00: [place] pain with pain with 00 [facility] bilateral bilateral Bran ch sciatica sciatica Muscle Muscle Disease Active Univers spasticity spasticity 1-27 it y of 00:00: [place] 00 Medical Branch Chronic Chronic Disease Active Univers pain of pain of 1-27 ity of both both 00:00: [place] shoulders shoulders 00 [facility] Branch Weakness Weakness Disease Active 2019-11 Unive rs 0-29 ity of 00:00: [place] [facility] Atypical Atypical Disease Active Unive rs chest pain chest pain 1-10 it y of 00:00: [place] 00 [facility] Branch Hyperglyce Hyperglyce Disease Active U anshul shah 1-09 ity of 00:00: [place] 00 [facility] Branch YEHUDA YEHUDA Disease Active 2018-11 Univers (obstructi (obstructi 0-27 it y of ve sleep ve sleep 00:00: [place] apnea) apnea) 00 [facility] Branch Morbid Morbid Disease Active 2018-11 Univers obesity obesity 0-27 ity of 00:00: [place] 00 [facility] Branch Chronic Chronic Disease Active 2018-11 Univers heart heart 0-27 ity of failure failure 00:00: [place] with with 00 Medical preserved preserved Bran ch ejection ejection fraction fraction Essential Essential Disease Active 2018-11 Uni vers hypertensi hypertensi 0-27 it y of on on 00:00: [place] [facility] Branch Dizziness Dizziness Disease Active 2018-11 Uni vers and and 0-27 ity of giddiness giddiness 00:00: [place] [facility] Allergies, Adverse Reactions, Alerts Allergy Allergy Status Severity Reaction(s) Onset Inactive Treating Comm ents Source Name Type Date Date Clinician NO KNOWN Drug Active Univers ALLERGIE Class ity of S [facility] Social History Social Habit Start Date Stop Date Quantity Comments Source Gender identity Universit y of [facility] Sexual orientation Univer sity of [facility] Alcohol intake 2023-07-21 2023-07-21 0 /d University of 00:00:00 00:00:00 [facility] Exposure to 2023-03-02 2023-03-12 Not sure University of SARS-CoV-2 (event) 00:00:00 11:11:00 [facility] History of Social 2022-11-08 2022-11-08 Univers ity of function 00:00:00 00:00:00 [facility] Cigarettes smoked 2022-08-08 2022-08-08 Univers ity of current (pack per 00:00:00 00:00:00 [facility] ) - Reported Branch Cigarette 2022-08-08 2022-08-08 University of pack-years 00:00:00 00:00:00 [facility] Tobacco use and 2022-08-08 2022-08-08 Smokeless tobacco Un iversity of exposure 00:00:00 00:00:00 non-user [facility] Tobacco Comment 2022-08-08 2022-08-08 intermittent since U niversity of 00:00:00 00:00:00 1987, did non [place] Medic danisha mccann vaping in Branch past History of tobacco 1988-08-04 2020-08-04 Cigarette Smoker University of use 00:00:00 00:00:00 [facility] Sex [birth year] Universit y of 00:00:00 00:00:00 [facility] Smoking Status Start Date Stop Date Source Ex-smoker 2022-08-08 00:00:00 2022-08-08 00:[facility] Medications Ordered Filled Start Stop Current Ordering Indication Dosage Frequency Signature Comments Components Source Medication Medication Date Date Medication? Clinician (SIG) Name Name methylPREDN Yes [id number] Take by Univers ISolone 9-13 mouth ity of (MEDROL, 00:00: SEE-INSTRU Willy as ASH,) 4 mg 00 CTIONS. Medica l tablets follow [place] package directions buPROPion Yes [id number] 150mg Take 1 Univers SR 150 mg 9-13 tablet by ity o f SR tablet 00:00: [facility] the Medical morning Branch and 1 tablet in the evening. diclofenac- Yes [id number] TAKE 1 Univers misoprostoL 9-13 TABLET BY ity of 50-200 00:00: MOUTH [place] mg-mcg per 00 EVERY DAY Medi rodney tablet NEEDED Branch gabapentin Yes [id number] 600mg Take 1 Univers 600 mg 9-13 tablet by ity of tablet 00:00: mouth in [place] 00 the Medical morning Branch and 1 tablet at noon and 1 tablet in the evening. metFORMIN Yes [id number] TAKE 1 U nivers 500 mg 9-13 TABLET BY ity of tablet 00:00: MOUTH IN [place] 00 THE Medical MORNING Branch AND IN THE EVENING WITH MEALS ergocalcife Yes [id number] 70894P Take 1 Univers rol, 9-13 capsule by ity of vitamin d2, 00:00: mouth [place] 1,250 mcg 00 weekly. Medical (50,000 Branch unit) capsule methylPREDN 2022-0 Yes [id number] Take by Univers ISolone 9-13 mouth ity of (MEDROL, 00:00: SEE-INSTRU [place] as ASH,) 4 mg 00 CTIONS. Medica l tablets follow Branch package directions buPROPion 2022-0 Yes [id number] 150mg Take 1 Univers SR 150 mg 9-13 tablet by ity o f SR tablet 00:00: [place] the Medical morning Branch and 1 tablet in the evening. diclofenac- 2022-0 Yes [id number] TAKE 1 Univers misoprostoL 9-13 TABLET BY ity of 50-200 00:00: MOUTH [place] mg-mcg per 00 EVERY DAY Medi rodney tablet NEEDED Branch gabapentin 2022-0 Yes [id number] 600mg Take 1 Univers 600 mg 9-13 tablet by ity of tablet 00:00: mouth in [place] 00 the Medical morning Branch and 1 tablet at noon and 1 tablet in the evening. metFORMIN 2022-0 Yes [id number] TAKE 1 U nivers 500 mg 9-13 TABLET BY ity of tablet 00:00: MOUTH IN [place] 00 THE Medical MORNING Branch AND IN THE EVENING WITH MEALS ergocalcife 2022-0 Yes [id number] 75046Q Take 1 Univers rol, 9-13 capsule by ity of vitamin d2, 00:00: mouth [place] 1,250 mcg 00 weekly. Medical (50,000 Branch unit) capsule blood sugar 2022-0 Yes [id number] CHECK Univers diagnostic 07-12 BLOOD ity of (ONETOUCH 00:00: GLUCOSE [place] ULTRA TEST) 00 FOUR TIMES Me dical strip DAILY Branch blood sugar 2022-0 Yes [id number] CHECK Univers diagnostic 07-12 BLOOD ity of (ONETOUCH 00:00: GLUCOSE [place] ULTRA TEST) 00 FOUR TIMES Me dical strip DAILY Branch glimepiride 2022-0 Yes [id number] 4mg Take 1 Univers 4 mg tablet 9-08 tablet by ity of 00:00: mouth [place] 00 daily with Medical breakfast. Branch pioglitazon 2022-0 Yes [id number] 15mg Take 1 Univers e 15 mg 9-08 tablet by ity of tablet 00:00: mouth in [place] 00 the Medical morning. Branch blood sugar 2022-0 Yes [id number] CHECK Univers diagnostic 9-08 BLOOD ity of (ONETOUCH 00:00: GLUCOSE [place] ULTRA TEST) 00 FOUR TIMES Me dical strip DAILY Branch glimepiride 2022-0 Yes [id number] 4mg Take 1 Univers 4 mg tablet 9-08 tablet by ity of 00:00: mouth [place] 00 daily with Medical breakfast. Branch pioglitazon 2022-0 Yes [id number] 15mg Take 1 Univers e 15 mg 9-08 tablet by ity of tablet 00:00: mouth in [place] 00 the Medical morning. Branch blood sugar 2022-0 Yes [id number] CHECK Univers diagnostic 07-12 BLOOD ity of (ONETOUCH 00:00: GLUCOSE [place] ULTRA TEST) 00 FOUR TIMES Me dical strip DAILY Branch glimepiride 2022-0 Yes [id number] 4mg Take 1 Univers 4 mg tablet 9-08 tablet by ity of 00:00: mouth [place] 00 daily with Medical breakfast. Branch pioglitazon 2022-0 Yes [id number] 15mg Take 1 Univers e 15 mg 9-08 tablet by ity of tablet 00:00: mouth in [place] 00 the Medical morning. Branch DICLOFENAC- 2022-0 Yes [id number] TAKE 1 Univers MISOPROSTOL 9-07 TABLET BY ity of 50-200 00:00: MOUTH [place] mg-mcg per 00 EVERY DAY Medi rodney tablet NEEDED Branch DICLOFENAC- 2022-0 Yes [id number] TAKE 1 Univers MISOPROSTOL 9-07 TABLET BY ity of 50-200 00:00: MOUTH [place] mg-mcg per 00 EVERY DAY Medi rodney tablet NEEDED Branch DICLOFENAC- 2022-0 Yes [id number] TAKE 1 Univers MISOPROSTOL 9-07 TABLET BY ity of 50-200 00:00: MOUTH [place] mg-mcg per 00 EVERY DAY Medi rodney tablet NEEDED Branch DICLOFENAC- 2022-0 2022- No [id number] TAKE 1 Univers MISOPROSTOL 9-05 12-13 TABLET BY it y of 50-200 00:00: 00:00 MOUTH [place] mg-mcg per 00 :00 EVERY DAY Medi rodney tablet NEEDED Branch DICLOFENAC- 2022-0 3- No [id number] TAKE 1 Univers MISOPROSTOL 9-05 12-13 TABLET BY it y of 50-200 00:00: 00:00 MOUTH [place] mg-mcg per 00 :00 EVERY DAY Medi rodney tablet NEEDED Branch DICLOFENAC- 3-0 Yes [id number] TAKE 1 Univers MISOPROSTOL 8-26 TABLET BY ity of 50-200 00:00: MOUTH [place] mg-mcg per 00 EVERY DAY Medi rodney tablet NEEDED Branch DICLOFENAC- 3-0 Yes [id number] TAKE 1 Univers MISOPROSTOL 8-26 TABLET BY ity of 50-200 00:00: MOUTH [place] mg-mcg per 00 EVERY DAY Medi rodney tablet NEEDED Branch DICLOFENAC- 2022-0 Yes [id number] TAKE 1 Univers MISOPROSTOL 8-26 TABLET BY ity of 50-200 00:00: MOUTH [place] mg-mcg per 00 EVERY DAY Medi rodney tablet NEEDED Branch DICLOFENAC- 3-0 2022- No [id number] TAKE 1 Univers MISOPROSTOL 8-26 -07 TABLET BY it y of 50-200 00:00: 00:00 MOUTH [place] mg-mcg per 00 :00 EVERY DAY Medi rodney tablet NEEDED Branch furosemide 2022-0 Yes [id number] TAKE 1 U nivers 40 mg 8-08 TABLET BY ity of tablet 00:00: MOUTH 00 TWICE Medical DAILY Branch OMEPRAZOLE 3-0 Yes [id number] 40mg TAKE 1 Univers 40 mg 8-08 CAPSULE BY ity of capsule 00:00: MOUTH IN [place] 00 THE Medical MORNING Branch ROSUVASTATI 3-0 Yes [id number] 20mg TAKE 1 Univers N 20 mg 8-08 TABLET BY ity of tablet 00:00: MOUTH IN [place] 00 THE Medical MORNING Branch furosemide 3-0 Yes [id number] TAKE 1 U nivers 40 mg 8-08 TABLET BY ity of tablet 00:00: MOUTH 00 TWICE Medical DAILY Branch OMEPRAZOLE 3-0 Yes [id number] 40mg TAKE 1 Univers 40 mg 8-08 CAPSULE BY ity of capsule 00:00: MOUTH IN [place] 00 THE Medical MORNING Branch ROSUVASTATI 2023-0 Yes [id number] 20mg TAKE 1 Univers N 20 mg 8-08 TABLET BY ity of tablet 00:00: MOUTH IN [place] 00 THE Medical MORNING Branch furosemide 3-0 Yes [id number] TAKE 1 U nivers 40 mg 8-08 TABLET BY ity of tablet 00:00: MOUTH 00 TWICE Medical DAILY Branch OMEPRAZOLE 2023-0 Yes [id number] 40mg TAKE 1 Univers 40 mg 8-08 CAPSULE BY ity of capsule 00:00: MOUTH IN [place] 00 THE Medical MORNING Branch ROSUVASTATI 2023-0 Yes [id number] 20mg TAKE 1 Univers N 20 mg 8-08 TABLET BY ity of tablet 00:00: MOUTH IN [place] 00 THE Medical MORNING Branch furosemide 2023-0 Yes [id number] TAKE 1 U nivers 40 mg 8-08 TABLET BY ity of tablet 00:00: MOUTH [place] TWICE Medical DAILY Branch OMEPRAZOLE 2023-0 Yes [id number] 40mg TAKE 1 Univers 40 mg 8-08 CAPSULE BY ity of capsule 00:00: MOUTH IN [place] 00 THE Medical MORNING Branch ROSUVASTATI 2023-0 Yes [id number] 20mg TAKE 1 Univers N 20 mg 8-08 TABLET BY ity of tablet 00:00: MOUTH IN [place] 00 THE Medical MORNING Branch furosemide 3-0 Yes [id number] TAKE 1 U nivers 40 mg 8-08 TABLET BY ity of tablet 00:00: MOUTH [place] TWICE Medical DAILY Branch OMEPRAZOLE 2023-0 Yes [id number] 40mg TAKE 1 Univers 40 mg 8-08 CAPSULE BY ity of capsule 00:00: MOUTH IN [place] 00 THE Medical MORNING Branch ROSUVASTATI 3-0 Yes [id number] 20mg TAKE 1 Univers N 20 mg 8-08 TABLET BY ity of tablet 00:00: MOUTH IN [place] 00 THE Medical MORNING Branch furosemide 3-0 Yes [id number] TAKE 1 U nivers 40 mg 8-08 TABLET BY ity of tablet 00:00: MOUTH [place] TWICE Medical DAILY Branch OMEPRAZOLE 2023-0 Yes [id number] 40mg TAKE 1 Univers 40 mg 8-08 CAPSULE BY ity of capsule 00:00: MOUTH IN [place] 00 THE Medical MORNING Branch ROSUVASTATI 2023-0 Yes [id number] 20mg TAKE 1 Univers N 20 mg 8-08 TABLET BY ity of tablet 00:00: MOUTH IN [place] 00 THE Medical MORNING Branch furosemide 2023-0 Yes [id number] TAKE 1 U nivers 40 mg 8-08 TABLET BY ity of tablet 00:00: MOUTH [place] TWICE Medical DAILY Branch OMEPRAZOLE 2023-0 Yes [id number] 40mg TAKE 1 Univers 40 mg 8-08 CAPSULE BY ity of capsule 00:00: MOUTH IN [place] 00 THE Medical MORNING Branch ROSUVASTATI 2023-0 Yes [id number] 20mg TAKE 1 Univers N 20 mg 8-08 TABLET BY ity of tablet 00:00: MOUTH IN [place] 00 THE Medical MORNING Branch furosemide 2023-0 Yes [id number] TAKE 1 U nivers 40 mg 8-08 TABLET BY ity of tablet 00:00: MOUTH [place] 00 TWICE Medical DAILY Branch OMEPRAZOLE 2023-0 Yes [id number] 40mg TAKE 1 Univers 40 mg 8-08 CAPSULE BY ity of capsule 00:00: MOUTH IN [place] 00 THE Medical MORNING Branch ROSUVASTATI 2023-0 Yes [id number] 20mg TAKE 1 Univers N 20 mg 8-08 TABLET BY ity of tablet 00:00: MOUTH IN [place] 00 THE Medical MORNING Branch furosemide 3-0 Yes [id number] TAKE 1 U nivers 40 mg 8-08 TABLET BY ity of tablet 00:00: MOUTH [place] 00 TWICE Medical DAILY Branch OMEPRAZOLE 3-0 Yes [id number] 40mg TAKE 1 Univers 40 mg 8-08 CAPSULE BY ity of capsule 00:00: MOUTH IN [place] 00 THE Medical MORNING Branch ROSUVASTATI 3-0 Yes [id number] 20mg TAKE 1 Univers N 20 mg 8-08 TABLET BY ity of tablet 00:00: MOUTH IN [place] 00 THE Medical MORNING Branch furosemide 3-0 Yes [id number] TAKE 1 U nivers 40 mg 8-08 TABLET BY ity of tablet 00:00: MOUTH [place] 00 TWICE Medical DAILY Branch OMEPRAZOLE 3-0 Yes [id number] 40mg TAKE 1 Univers 40 mg 8-08 CAPSULE BY ity of capsule 00:00: MOUTH IN [place] 00 THE Medical MORNING Branch ROSUVASTATI 2023-0 Yes [id number] 20mg TAKE 1 Univers N 20 mg 8-08 TABLET BY ity of tablet 00:00: MOUTH IN [place] 00 THE Medical MORNING Branch furosemide 3-0 Yes [id number] TAKE 1 U nivers 40 mg 8-08 TABLET BY ity of tablet 00:00: MOUTH [place] 00 TWICE Medical DAILY Branch OMEPRAZOLE 2023-0 Yes [id number] 40mg TAKE 1 Univers 40 mg 8-08 CAPSULE BY ity of capsule 00:00: MOUTH IN [place] 00 THE Medical MORNING Branch ROSUVASTATI 2023-0 Yes [id number] 20mg TAKE 1 Univers N 20 mg 8-08 TABLET BY ity of tablet 00:00: MOUTH IN [place] 00 THE Medical MORNING Branch furosemide 3-0 Yes [id number] TAKE 1 U nivers 40 mg 8-08 TABLET BY ity of tablet 00:00: MOUTH [place] 00 TWICE Medical DAILY Branch OMEPRAZOLE 2023-0 Yes [id number] 40mg TAKE 1 Univers 40 mg 8-08 CAPSULE BY ity of capsule 00:00: MOUTH IN [place] 00 THE Medical MORNING Branch ROSUVASTATI 2023-0 Yes [id number] 20mg TAKE 1 Univers N 20 mg 8-08 TABLET BY ity of tablet 00:00: MOUTH IN [place] 00 THE Medical MORNING Branch furosemide 2023-0 Yes [id number] TAKE 1 U nivers 40 mg 8-08 TABLET BY ity of tablet 00:00: MOUTH [place] TWICE Medical DAILY Branch OMEPRAZOLE 2023-0 Yes [id number] 40mg TAKE 1 Univers 40 mg 8-08 CAPSULE BY ity of capsule 00:00: MOUTH IN [place] 00 THE Medical MORNING Branch ROSUVASTATI 2023-0 Yes [id number] 20mg TAKE 1 Univers N 20 mg 8-08 TABLET BY ity of tablet 00:00: MOUTH IN [place] 00 THE Medical MORNING Branch furosemide 2023-0 Yes [id number] TAKE 1 U nivers 40 mg 8-08 TABLET BY ity of tablet 00:00: MOUTH [place] TWICE Medical DAILY Branch OMEPRAZOLE 2023-0 Yes [id number] 40mg TAKE 1 Univers 40 mg 8-08 CAPSULE BY ity of capsule 00:00: MOUTH IN [place] 00 THE Medical MORNING Branch ROSUVASTATI 2023-0 Yes [id number] 20mg TAKE 1 Univers N 20 mg 8-08 TABLET BY ity of tablet 00:00: MOUTH IN [place] 00 THE Medical MORNING Branch furosemide 2023-0 Yes [id number] TAKE 1 U nivers 40 mg 8-08 TABLET BY ity of tablet 00:00: MOUTH [place] TWICE Medical DAILY Branch OMEPRAZOLE 2023-0 Yes [id number] 40mg TAKE 1 Univers 40 mg 8-08 CAPSULE BY ity of capsule 00:00: MOUTH IN [place] 00 THE Medical MORNING Branch ROSUVASTATI 2023-0 Yes [id number] 20mg TAKE 1 Univers N 20 mg 8-08 TABLET BY ity of tablet 00:00: MOUTH IN [place] 00 THE Medical MORNING Branch furosemide 2023-0 Yes [id number] TAKE 1 U nivers 40 mg 8-08 TABLET BY ity of tablet 00:00: MOUTH [place] 00 TWICE Medical DAILY Branch OMEPRAZOLE 2023-0 Yes [id number] 40mg TAKE 1 Univers 40 mg 8-08 CAPSULE BY ity of capsule 00:00: MOUTH IN [place] [address] THE Medical MORNING Branch ROSUVASTATI 2022-0 Yes [id number] 20mg TAKE 1 Univers N 20 mg 8-08 TABLET BY ity of tablet 00:00: MOUTH IN [place] [address] THE Medical MORNING Branch hydrALAZINE 2022-0 Yes [id number] 50mg Take 1 Univers 50 mg 7-28 tablet by ity of tablet 00:00: mouth in [place] [address] the Medical morning Branch and 1 tablet in the evening. carvediloL 0 Yes [id number] 25mg Take 1 Univers 25 mg 7-28 02 tablet by ity of tablet 00:00: mouth in [place] [address] the Medical morning Branch and 1 tablet in the evening. diclofenac- 0 Yes [id number] 1{tbl} Take 1 Univers misoprostoL 7-28 tablet by ity of 50-200 00:00: mouth once [place] mg-mcg per 00 daily as Medic al tablet needed Branch (Chronic Pain - Arthritis, multiple joint involvemen t). albuterol 0 Yes [id number] INHALE ONE Univers 2.5 mg /3 7-28 VIAL VIA ity of mL (0.083 00:00: NEBULIZER Willy as %) 00 EVERY 4 Medical nebulizer HOURS Branch solution NEEDED FOR WHEEZING OR SHORTNESS OF BREATH hydrALAZINE 0 Yes [id number] 50mg Take 1 Univers 50 mg 7-28 tablet by ity of tablet 00:00: mouth in [place] [address] the Medical morning Branch and 1 tablet in the evening. carvediloL 0 Yes [id number] 25mg Take 1 Univers 25 mg 7-28 02 tablet by ity of tablet 00:00: mouth in [place] [address] the Medical morning Branch and 1 tablet in the evening. diclofenac- 2022-0 Yes [id number] 1{tbl} Take 1 Univers misoprostoL 7-28 tablet by ity of 50-200 00:00: mouth once [place] mg-mcg per 00 daily as Medic al tablet needed Branch (Chronic Pain - Arthritis, multiple joint involvemen t). albuterol 2022-0 Yes [id number] INHALE ONE Univers 2.5 mg /3 7-28 VIAL VIA ity of mL (0.083 00:00: NEBULIZER Wil[place] as %) 00 EVERY 4 Medical nebulizer HOURS Branch solution NEEDED FOR WHEEZING OR SHORTNESS OF BREATH hydrALAZINE 2022-0 Yes [id number] 50mg Take 1 Univers 50 mg 7-28 tablet by ity of tablet 00:00: mouth in [place] 00 the Medical morning Branch and 1 tablet in the evening. carvediloL 2022-0 Yes [id number] 25mg Take 1 Univers 25 mg 7-28 02 tablet by ity of tablet 00:00: mouth in [place] 00 the Medical morning Branch and 1 tablet in the evening. diclofenac- 2022-0 Yes [id number] 1{tbl} Take 1 Univers misoprostoL 7-28 tablet by ity of 50-200 00:00: mouth once [place] mg-mcg per 00 daily as Medic al tablet needed Branch (Chronic Pain - Arthritis, multiple joint involvemen t). albuterol 2022-0 Yes [id number] INHALE ONE Univers 2.5 mg /3 7-28 VIAL VIA ity of mL (0.083 00:00: NEBULIZER [place] as %) 00 EVERY 4 Medical nebulizer HOURS Branch solution NEEDED FOR WHEEZING OR SHORTNESS OF BREATH hydrALAZINE 2022-0 Yes [id number] 50mg Take 1 Univers 50 mg 7-28 tablet by ity of tablet 00:00: mouth in [place] [address] the Medical morning Branch and 1 tablet in the evening. carvediloL 2022-0 Yes [id number] 25mg Take 1 Univers 25 mg 7-28 02 tablet by ity of tablet 00:00: mouth in [place] 00 the Medical morning Branch and 1 tablet in the evening. diclofenac- 2022-0 Yes [id number] 1{tbl} Take 1 Univers misoprostoL 7-28 tablet by ity of 50-200 00:00: mouth once [place] mg-mcg per 00 daily as Medic al tablet needed Branch (Chronic Pain - Arthritis, multiple joint involvemen t). albuterol 2022-0 Yes [id number] INHALE ONE Univers 2.5 mg /3 7-28 VIAL VIA ity of mL (0.083 00:00: NEBULIZER [place] as %) 00 EVERY 4 Medical nebulizer HOURS Branch solution NEEDED FOR WHEEZING OR SHORTNESS OF BREATH hydrALAZINE 2022-0 Yes [id number] 50mg Take 1 Univers 50 mg 7-28 tablet by ity of tablet 00:00: mouth in [place] [address] the Medical morning Branch and 1 tablet in the evening. carvediloL 2022-0 Yes [id number] 25mg Take 1 Univers 25 mg 7-28 02 tablet by ity of tablet 00:00: mouth in [place] [address] the Medical morning Branch and 1 tablet in the evening. diclofenac- 2022-0 Yes [id number] 1{tbl} Take 1 [facility] misoprostoL 7-28 tablet by ity of 50-200 00:00: mouth once [place] mg-mcg per 00 daily as Medic al tablet needed Branch (Chronic Pain - Arthritis, multiple joint involvemen t). albuterol 2022-0 Yes [id number] INHALE ONE [facility] 2.5 mg /3 7-28 VIAL VIA ity of mL (0.083 00:00: NEBULIZER [place] as %) 00 EVERY 4 Medical nebulizer HOURS Branch solution NEEDED FOR WHEEZING OR SHORTNESS OF BREATH hydrALAZINE 2022-0 Yes [id number] 50mg Take 1 [facility] 50 mg 7-28 tablet by ity of tablet 00:00: mouth in [place] [address] the Medical morning Branch and 1 tablet in the evening. carvediloL 2022-0 Yes [id number] 25mg Take 1 [facility] 25 mg 7-28 02 tablet by ity of tablet 00:00: mouth in [place] [address] the Medical morning Branch and 1 tablet in the evening. diclofenac- 2022-0 Yes [id number] 1{tbl} Take 1 [facility] misoprostoL 7-28 tablet by ity of 50-200 00:00: mouth once [place] mg-mcg per 00 daily as Medic al tablet needed Branch (Chronic Pain - Arthritis, multiple joint involvemen t). albuterol 2022-0 Yes [id number] INHALE ONE [facility] 2.5 mg /3 7-28 VIAL VIA ity of mL (0.083 00:00: NEBULIZER [place] as %) 00 EVERY 4 Medical nebulizer HOURS Branch solution NEEDED FOR WHEEZING OR SHORTNESS OF BREATH hydrALAZINE 2022-0 Yes [id number] 50mg Take 1 [facility] 50 mg 7-28 tablet by ity of tablet 00:00: mouth in [place] [address] the Medical morning Branch and 1 tablet in the evening. carvediloL 2022-0 Yes [id number] 25mg Take 1 [facility] 25 mg 7-28 02 tablet by ity of tablet 00:00: mouth in [place] 00 the Medical morning Branch and 1 tablet in the evening. diclofenac- 2022-0 Yes [id number] 1{tbl} Take 1 [facility] misoprostoL 7-28 tablet by ity of 50-200 00:00: mouth once [place] mg-mcg per 00 daily as Medic al tablet needed Branch (Chronic Pain - Arthritis, multiple joint involvemen t). albuterol 2022-0 Yes [id number] INHALE ONE [facility] 2.5 mg /3 7-28 VIAL VIA ity of mL (0.083 00:00: NEBULIZER [place] as %) 00 EVERY 4 Medical nebulizer HOURS Branch solution NEEDED FOR WHEEZING OR SHORTNESS OF BREATH hydrALAZINE 2022-0 Yes [id number] 50mg Take 1 [facility] 50 mg 7-28 tablet by ity of tablet 00:00: mouth in [place] [address] the Medical morning Branch and 1 tablet in the evening. carvediloL 2022-0 Yes [id number] 25mg Take 1 [facility] 25 mg 7-28 02 tablet by ity of tablet 00:00: mouth in [place] [address] the Medical morning Branch and 1 tablet in the evening. albuterol 2022-0 Yes [id number] INHALE ONE [facility] 2.5 mg /3 7-28 VIAL VIA ity of mL (0.083 00:00: NEBULIZER [place] as %) 00 EVERY 4 Medical nebulizer HOURS Branch solution NEEDED FOR WHEEZING OR SHORTNESS OF BREATH hydrALAZINE 2022-0 Yes [id number] 50mg Take 1 [facility] 50 mg 7-28 tablet by ity of tablet 00:00: mouth in [place] [address] the Medical morning Branch and 1 tablet in the evening. carvediloL 2022-0 Yes [id number] 25mg Take 1 [facility] 25 mg 7-28 02 tablet by ity of tablet 00:00: mouth in [place] [address] the Medical morning Branch and 1 tablet in the evening. albuterol 2022-0 Yes [id number] INHALE ONE [facility] 2.5 mg /3 7-28 VIAL VIA ity of mL (0.083 00:00: NEBULIZER [place] as %) 00 EVERY 4 Medical nebulizer HOURS Branch solution NEEDED FOR WHEEZING OR SHORTNESS OF BREATH hydrALAZINE 2022-0 Yes [id number] 50mg Take 1 [facility] 50 mg 7-28 tablet by ity of tablet 00:00: mouth in [place] 00 the Medical morning Branch and 1 tablet in the evening. carvediloL 3-0 Yes [id number] 25mg Take 1 [facility] 25 mg 7-28 02 tablet by ity of tablet 00:00: mouth in [place] 00 the Medical morning Branch and 1 tablet in the evening. albuterol 3-0 Yes [id number] INHALE ONE [facility] 2.5 mg /3 7-28 VIAL VIA ity of mL (0.083 00:00: NEBULIZER [place] as %) 00 EVERY 4 Medical nebulizer HOURS Branch solution NEEDED FOR WHEEZING OR SHORTNESS OF BREATH hydrALAZINE 2022-0 Yes [id number] 50mg Take 1 [facility] 50 mg 7-28 tablet by ity of tablet 00:00: mouth in [place] [address] the Medical morning Branch and 1 tablet in the evening. carvediloL 3-0 Yes [id number] 25mg Take 1 [facility] 25 mg 7-28 02 tablet by ity of tablet 00:00: mouth in [place] [address] the Medical morning Branch and 1 tablet in the evening. albuterol 3-0 Yes [id number] INHALE ONE [facility] 2.5 mg /3 7-28 VIAL VIA ity of mL (0.083 00:00: NEBULIZER [place] as %) 00 EVERY 4 Medical nebulizer HOURS Branch solution NEEDED FOR WHEEZING OR SHORTNESS OF BREATH hydrALAZINE 3-0 Yes [id number] 50mg Take 1 [facility] 50 mg 7-28 tablet by ity of tablet 00:00: mouth in [place] [address] the Medical morning Branch and 1 tablet in the evening. carvediloL 3-0 Yes [id number] 25mg Take 1 [facility] 25 mg 7-28 02 tablet by ity of tablet 00:00: mouth in [place] [address] the Medical morning Branch and 1 tablet in the evening. albuterol 3-0 Yes [id number] INHALE ONE [facility] 2.5 mg /3 7-28 VIAL VIA ity of mL (0.083 00:00: NEBULIZER [place] as %) 00 EVERY 4 Medical nebulizer HOURS Branch solution NEEDED FOR WHEEZING OR SHORTNESS OF BREATH hydrALAZINE 3-0 Yes [id number] 50mg Take 1 [facility] 50 mg 7-28 tablet by ity of tablet 00:00: mouth in [place] [address] the Medical morning Branch and 1 tablet in the evening. carvediloL 3-0 Yes [id number] 25mg Take 1 [facility] 25 mg 7-28 02 tablet by ity of tablet 00:00: mouth in [place] [address] the Medical morning Branch and 1 tablet in the evening. albuterol 3-0 Yes [id number] INHALE ONE [facility] 2.5 mg /3 7-28 VIAL VIA ity of mL (0.083 00:00: NEBULIZER [place] as %) 00 EVERY 4 Medical nebulizer HOURS Branch solution NEEDED FOR WHEEZING OR SHORTNESS OF BREATH hydrALAZINE 2022-0 Yes [id number] 50mg Take 1 [facility] 50 mg 7-28 tablet by ity of tablet 00:00: mouth in [place] [address] the Medical morning Branch and 1 tablet in the evening. carvediloL 3-0 Yes [id number] 25mg Take 1 [facility] 25 mg 7-28 02 tablet by ity of tablet 00:00: mouth in [place] [address] the Medical morning Branch and 1 tablet in the evening. albuterol 3-0 Yes [id number] INHALE ONE [facility] 2.5 mg /3 7-28 VIAL VIA ity of mL (0.083 00:00: NEBULIZER [place] as %) 00 EVERY 4 Medical nebulizer HOURS Branch solution NEEDED FOR WHEEZING OR SHORTNESS OF BREATH hydrALAZINE 2022-0 Yes [id number] 50mg Take 1 [facility] 50 mg 7-28 tablet by ity of tablet 00:00: mouth in [place] [address] the Medical morning Branch and 1 tablet in the evening. carvediloL 3-0 Yes [id number] 25mg Take 1 [facility] 25 mg 7-28 02 tablet by ity of tablet 00:00: mouth in [place] [address] the Medical morning Branch and 1 tablet in the evening. albuterol 3-0 Yes [id number] INHALE ONE [facility] 2.5 mg /3 7-28 VIAL VIA ity of mL (0.083 00:00: NEBULIZER [place] as %) 00 EVERY 4 Medical nebulizer HOURS Branch solution NEEDED FOR WHEEZING OR SHORTNESS OF BREATH hydrALAZINE 3-0 Yes [id number] 50mg Take 1 [facility] 50 mg 7-28 tablet by ity of tablet 00:00: mouth in [place] [address] the Medical morning Branch and 1 tablet in the evening. carvediloL 3-0 Yes [id number] 25mg Take 1 [facility] 25 mg 7-28 02 tablet by ity of tablet 00:00: mouth in [place] 00 the Medical morning Branch and 1 tablet in the evening. albuterol 2022-0 Yes [id number] INHALE ONE [facility] 2.5 mg /3 7-28 VIAL VIA ity of mL (0.083 00:00: NEBULIZER [place] as %) 00 EVERY 4 Medical nebulizer HOURS Branch solution NEEDED FOR WHEEZING OR SHORTNESS OF BREATH hydrALAZINE 2022-0 Yes [id number] 50mg Take 1 [facility] 50 mg 7-28 tablet by ity of tablet 00:00: mouth in [place] 00 the Medical morning Branch and 1 tablet in the evening. carvediloL 2022-0 Yes [id number] 25mg Take 1 [facility] 25 mg 7-28 02 tablet by ity of tablet 00:00: mouth in [place] [address] the Medical morning Branch and 1 tablet in the evening. albuterol 2022-0 Yes [id number] INHALE ONE [facility] 2.5 mg /3 7-28 VIAL VIA ity of mL (0.083 00:00: NEBULIZER [place] as %) 00 EVERY 4 Medical nebulizer HOURS Branch solution NEEDED FOR WHEEZING OR SHORTNESS OF BREATH hydrALAZINE 2022-0 Yes [id number] 50mg Take 1 [facility] 50 mg 7-28 tablet by ity of tablet 00:00: mouth in [place] 00 the Medical morning Branch and 1 tablet in the evening. carvediloL 2022-0 Yes [id number] 25mg Take 1 [facility] 25 mg 7-28 02 tablet by ity of tablet 00:00: mouth in [place] [address] the Medical morning Branch and 1 tablet in the evening. albuterol 2022-0 Yes [id number] INHALE ONE [facility] 2.5 mg /3 7-28 VIAL VIA ity of mL (0.083 00:00: NEBULIZER [place] as %) 00 EVERY 4 Medical nebulizer HOURS Branch solution NEEDED FOR WHEEZING OR SHORTNESS OF BREATH hydrALAZINE 2022-0 Yes [id number] 50mg Take 1 [facility] 50 mg 7-28 tablet by ity of tablet 00:00: mouth in [place] [address] the Medical morning Branch and 1 tablet in the evening. carvediloL 2022-0 Yes [id number] 25mg Take 1 [facility] 25 mg 7-28 02 tablet by ity of tablet 00:00: mouth in [place] 00 the Medical morning Branch and 1 tablet in the evening. albuterol Yes [id number] INHALE ONE [facility] 2.5 mg /3 - VIAL VIA ity of mL (0.083 00:00: NEBULIZER [place] as %) 00 EVERY 4 Medical nebulizer HOURS Branch solution NEEDED FOR WHEEZING OR SHORTNESS OF BREATH diclofenac- 202- No [id number] 1{tbl} Take 1 [facility] misoprostoL - 08-26 tablet by it y of 50-200 00:00: 00:[place] mg-mcg per 00 :00 daily as Medic al tablet needed Branch (Chronic Pain - Arthritis, multiple joint involvemen t). fluticasone Yes [id number] SHAKE [facility] propionate 7-21 LIQUID AND ity of 50 00:00: INSTILL [place] mcg/actuati 00 TWO (2) Medic al on nasal SPRAYS IN Branch spray EACH NOSTRIL EVERY DAY fluticasone Yes [id number] SHAKE [facility] propionate 7-21 LIQUID AND ity of 50 00:00: INSTILL [place] mcg/actuati 00 TWO (2) Medic al on nasal SPRAYS IN Branch spray EACH NOSTRIL EVERY DAY fluticasone Yes [id number] SHAKE [facility] propionate 7-21 LIQUID AND ity of 50 00:00: INSTILL [place] mcg/actuati 00 TWO (2) Medic al on nasal SPRAYS IN Branch spray EACH NOSTRIL EVERY DAY fluticasone Yes [id number] SHAKE [facility] propionate 7-21 LIQUID AND ity of 50 00:00: INSTILL [place] mcg/actuati 00 TWO (2) Medic al on nasal SPRAYS IN Branch spray EACH NOSTRIL EVERY DAY fluticasone Yes [id number] SHAKE [facility] propionate 7-21 LIQUID AND ity of 50 00:00: INSTILL [place] mcg/actuati 00 TWO (2) Medic al on nasal SPRAYS IN Branch spray EACH NOSTRIL EVERY DAY fluticasone Yes [id number] SHAKE [facility] propionate 7-21 LIQUID AND ity of 50 00:00: INSTILL [place] mcg/actuati 00 TWO (2) Medic al on nasal SPRAYS IN Branch spray EACH NOSTRIL EVERY DAY fluticasone Yes [id number] SHAKE [facility] propionate 7-21 LIQUID AND ity of 50 00:00: INSTILL [place] mcg/actuati 00 TWO (2) Medic al on nasal SPRAYS IN Branch spray EACH NOSTRIL EVERY DAY fluticasone Yes [id number] SHAKE [facility] propionate 7-21 LIQUID AND ity of 50 00:00: INSTILL [place] mcg/actuati 00 TWO (2) Medic al on nasal SPRAYS IN Branch spray EACH NOSTRIL EVERY DAY fluticasone Yes [id number] SHAKE [facility] propionate 7-21 LIQUID AND ity of 50 00:00: INSTILL [place] mcg/actuati 00 TWO (2) Medic al on nasal SPRAYS IN Branch spray EACH NOSTRIL EVERY DAY fluticasone Yes [id number] SHAKE [facility] propionate 7-21 LIQUID AND ity of 50 00:00: INSTILL [place] mcg/actuati 00 TWO (2) Medic al on nasal SPRAYS IN Branch spray EACH NOSTRIL EVERY DAY fluticasone Yes [id number] SHAKE [facility] propionate 7-21 LIQUID AND ity of 50 00:00: INSTILL [place] mcg/actuati 00 TWO (2) Medic al on nasal SPRAYS IN Branch spray EACH NOSTRIL EVERY DAY fluticasone Yes [id number] SHAKE [facility] propionate 7-21 LIQUID AND ity of 50 00:00: INSTILL [place] mcg/actuati 00 TWO (2) Medic al on nasal SPRAYS IN Branch spray EACH NOSTRIL EVERY DAY fluticasone Yes [id number] SHAKE [facility] propionate 7-21 LIQUID AND ity of 50 00:00: INSTILL [place] mcg/actuati 00 TWO (2) Medic al on nasal SPRAYS IN Branch spray EACH NOSTRIL EVERY DAY fluticasone 0 Yes [id number] SHAKE [facility] propionate 7-21 LIQUID AND ity of 50 00:00: INSTILL [place] mcg/actuati 00 TWO (2) Medic al on nasal SPRAYS IN Branch spray EACH NOSTRIL EVERY DAY fluticasone 0 Yes [id number] SHAKE [facility] propionate 7-21 LIQUID AND ity of 50 00:00: INSTILL [place] mcg/actuati 00 TWO (2) Medic al on nasal SPRAYS IN Branch spray EACH NOSTRIL EVERY DAY fluticasone 0 Yes [id number] SHAKE [facility] propionate 7-21 LIQUID AND ity of 50 00:00: INSTILL [place] mcg/actuati 00 TWO (2) Medic al on nasal SPRAYS IN Branch spray EACH NOSTRIL EVERY DAY fluticasone 0 Yes [id number] SHAKE [facility] propionate 7-21 LIQUID AND ity of 50 00:00: INSTILL [place] mcg/actuati 00 TWO (2) Medic al on nasal SPRAYS IN Branch spray EACH NOSTRIL EVERY DAY fluticasone 0 Yes [id number] SHAKE [facility] propionate 7-21 LIQUID AND ity of 50 00:00: INSTILL [place] mcg/actuati 00 TWO (2) Medic al on nasal SPRAYS IN Branch spray EACH NOSTRIL EVERY DAY fluticasone 0 Yes [id number] SHAKE [facility] propionate 7-21 LIQUID AND ity of 50 00:00: INSTILL [place] mcg/actuati 00 TWO (2) Medic al on nasal SPRAYS IN Branch spray EACH NOSTRIL EVERY DAY fluticasone 0 Yes [id number] SHAKE [facility] propionate 7-21 LIQUID AND ity of 50 00:00: INSTILL [place] mcg/actuati 00 TWO (2) Medic al on nasal SPRAYS IN Branch spray EACH NOSTRIL EVERY DAY fluticasone 0 Yes [id number] SHAKE [facility] propionate 7-21 LIQUID AND ity of 50 00:00: INSTILL [place] mcg/actuati 00 TWO (2) Medic al on nasal SPRAYS IN Branch spray EACH NOSTRIL EVERY DAY fluticasone 0 Yes [id number] SHAKE [facility] propionate 7-21 LIQUID AND ity of 50 00:00: INSTILL [place] mcg/actuati 00 TWO (2) Medic al on nasal SPRAYS IN Branch spray EACH NOSTRIL EVERY DAY fluticasone 0 Yes [id number] SHAKE [facility] propionate 7-21 LIQUID AND ity of 50 00:00: INSTILL [place] mcg/actuati 00 TWO (2) Medic al on nasal SPRAYS IN Branch spray EACH NOSTRIL EVERY DAY fluticasone 0 Yes [id number] SHAKE [facility] propionate 7-21 LIQUID AND ity of 50 00:00: INSTILL [place] mcg/actuati 00 TWO (2) Medic al on nasal SPRAYS IN Branch spray EACH NOSTRIL EVERY DAY IPRATROPIUM 3-0 Yes [id number] INSTILL [facility] 21 mcg 7-14 TWO (2) ity of (0.03 %) 00:00: [place] nasal spray 00 EACH Medical NOSTRIL Branch EVERY 12 HOURS POTASSIUM 2022-0 Yes [id number] 10meq TAKE 1 U nivers CHLORIDE 10 7-14 TABLET BY ity of mEq CR 00:00: MOUTH [place] tablet 00 EVERY Medical SATURDAY, Branch SATURDAY, AND SATURDAY IPRATROPIUM 2022-0 Yes [id number] INSTILL [facility] 21 mcg 7-14 TWO (2) ity of (0.03 %) 00:00: [place] nasal spray 00 EACH Medical NOSTRIL Branch EVERY 12 HOURS POTASSIUM 2022-0 Yes [id number] 10meq TAKE 1 U nivers CHLORIDE 10 7-14 TABLET BY ity of mEq CR 00:00: MOUTH [place] tablet 00 EVERY Medical SATURDAY, Branch SATURDAY, AND SATURDAY IPRATROPIUM 2022-0 Yes [id number] INSTILL [facility] 21 mcg 7-14 TWO (2) ity of (0.03 %) 00:00: [place]YS [place] nasal spray 00 EACH Medical NOSTRIL Branch EVERY 12 HOURS POTASSIUM 2022-0 Yes [id number] 10meq TAKE 1 U nivers CHLORIDE 10 7-14 TABLET BY ity of mEq CR 00:00: MOUTH [place] tablet 00 EVERY Medical SATURDAY, Branch SATURDAY, AND SATURDAY IPRATROPIUM 3-0 Yes [id number] INSTILL [facility] 21 mcg 7-14 TWO (2) ity of (0.03 %) 00:00: [place]YS [place] nasal spray 00 EACH Medical NOSTRIL Branch EVERY 12 HOURS POTASSIUM 2022-0 Yes [id number] 10meq TAKE 1 U nivers CHLORIDE 10 7-14 TABLET BY ity of mEq CR 00:00: MOUTH [place] tablet 00 EVERY Medical SATURDAY, Branch SATURDAY, AND SATURDAY IPRATROPIUM 2023-0 Yes [id number] INSTILL [facility] 21 mcg 7-14 TWO (2) ity of (0.03 %) 00:00: SPR[place]YS [place] nasal spray 00 EACH Medical NOSTRIL Branch EVERY 12 HOURS POTASSIUM 2022-0 Yes [id number] 10meq TAKE 1 U nivers CHLORIDE 10 7-14 TABLET BY ity of mEq CR 00:00: MOUTH [place] tablet 00 EVERY Medical SATURDAY, Branch SATURDAY, AND SATURDAY IPRATROPIUM 2022-0 Yes [id number] INSTILL [facility] 21 mcg 7-14 TWO (2) ity of (0.03 %) 00:00: SPR[place]YS [place] nasal spray 00 EACH Medical NOSTRIL Branch EVERY 12 HOURS POTASSIUM 2022-0 Yes [id number] 10meq TAKE 1 U nivers CHLORIDE 10 7-14 TABLET BY ity of mEq CR 00:00: MOUTH [place] tablet 00 EVERY Medical SATURDAY, Branch SATURDAY, AND SATURDAY IPRATROPIUM 2022-0 Yes [id number] INSTILL [facility] 21 mcg 7-14 TWO (2) ity of (0.03 %) 00:00: SPR[place]YS [place] nasal spray 00 EACH Medical NOSTRIL Branch EVERY 12 HOURS POTASSIUM 2022-0 Yes [id number] 10meq TAKE 1 U nivers CHLORIDE 10 7-14 TABLET BY ity of mEq CR 00:00: MOUTH [place] tablet 00 EVERY Medical SATURDAY, Branch SATURDAY, AND SATURDAY IPRATROPIUM 2022-0 Yes [id number] INSTILL [facility] 21 mcg 7-14 TWO (2) ity of (0.03 %) 00:00: SPR[place]YS [place] nasal spray 00 EACH Medical NOSTRIL Branch EVERY 12 HOURS POTASSIUM 2022-0 Yes [id number] 10meq TAKE 1 U nivers CHLORIDE 10 7-14 TABLET BY ity of mEq CR 00:00: MOUTH [place] tablet 00 EVERY Medical SATURDAY, Branch SATURDAY, AND SATURDAY IPRATROPIUM 2022-0 Yes [id number] INSTILL [facility] 21 mcg 7-14 TWO (2) ity of (0.03 %) 00:00: [place]YS [place] nasal spray 00 EACH Medical NOSTRIL Branch EVERY 12 HOURS POTASSIUM 2022-0 Yes [id number] 10meq TAKE 1 U nivers CHLORIDE 10 7-14 TABLET BY ity of mEq CR 00:00: MOUTH [place] tablet 00 EVERY Medical SATURDAY, Branch SATURDAY, AND SATURDAY IPRATROPIUM 2022-0 Yes [id number] INSTILL [facility] 21 mcg 7-14 TWO (2) ity of (0.03 %) 00:00: SPR[place]YS [place] nasal spray 00 EACH Medical NOSTRIL Branch EVERY 12 HOURS POTASSIUM 2023-0 Yes [id number] 10meq TAKE 1 U nivers CHLORIDE 10 7-14 TABLET BY ity of mEq CR 00:00: MOUTH [place] tablet 00 EVERY Medical SATURDAY, Branch SATURDAY, AND SATURDAY IPRATROPIUM 2023-0 Yes [id number] INSTILL [facility] 21 mcg 7-14 TWO (2) ity of (0.03 %) 00:00: SPR[place]YS [place] nasal spray 00 EACH Medical NOSTRIL Branch EVERY 12 HOURS POTASSIUM 2022-0 Yes [id number] 10meq TAKE 1 U nivers CHLORIDE 10 7-14 TABLET BY ity of mEq CR 00:00: MOUTH [place] tablet 00 EVERY Medical SATURDAY, Branch SATURDAY, AND SATURDAY IPRATROPIUM 3-0 Yes [id number] INSTILL [facility] 21 mcg 7-14 TWO (2) ity of (0.03 %) 00:00: [place]YS [place] nasal spray 00 EACH Medical NOSTRIL Branch EVERY 12 HOURS POTASSIUM 2022-0 Yes [id number] 10meq TAKE 1 U nivers CHLORIDE 10 7-14 TABLET BY ity of mEq CR 00:00: MOUTH [place] tablet 00 EVERY Medical SATURDAY, Branch SATURDAY, AND SATURDAY IPRATROPIUM 2023-0 Yes [id number] INSTILL [facility] 21 mcg 7-14 TWO (2) ity of (0.03 %) 00:00: SPR[place]YS [place] nasal spray 00 EACH Medical NOSTRIL Branch EVERY 12 HOURS POTASSIUM 2022-0 Yes [id number] 10meq TAKE 1 U nivers CHLORIDE 10 7-14 TABLET BY ity of mEq CR 00:00: MOUTH [place] tablet 00 EVERY Medical SATURDAY, Branch SATURDAY, AND SATURDAY IPRATROPIUM 2023-0 Yes [id number] INSTILL [facility] 21 mcg 7-14 TWO (2) ity of (0.03 %) 00:00: SPR[place]YS [place] nasal spray 00 EACH Medical NOSTRIL Branch EVERY 12 HOURS POTASSIUM 3-0 Yes [id number] 10meq TAKE 1 U nivers CHLORIDE 10 7-14 TABLET BY ity of mEq CR 00:00: MOUTH [place] tablet 00 EVERY Medical SATURDAY, Branch SATURDAY, AND SATURDAY IPRATROPIUM 2022-0 Yes [id number] INSTILL [facility] 21 mcg 7-14 TWO (2) ity of (0.03 %) 00:00: SPR[place]YS [place] nasal spray 00 EACH Medical NOSTRIL Branch EVERY 12 HOURS POTASSIUM 2022-0 Yes [id number] 10meq TAKE 1 U nivers CHLORIDE 10 7-14 TABLET BY ity of mEq CR 00:00: MOUTH [place] tablet 00 EVERY Medical SATURDAY, Branch SATURDAY, AND SATURDAY IPRATROPIUM 2022-0 Yes [id number] INSTILL [facility] 21 mcg 7-14 TWO (2) ity of (0.03 %) 00:00: SPR[place]YS [place] nasal spray 00 EACH Medical NOSTRIL Branch EVERY 12 HOURS POTASSIUM 2022-0 Yes [id number] 10meq TAKE 1 U nivers CHLORIDE 10 7-14 TABLET BY ity of mEq CR 00:00: MOUTH [place] tablet 00 EVERY Medical SATURDAY, Branch SATURDAY, AND SATURDAY IPRATROPIUM 2022-0 Yes [id number] INSTILL [facility] 21 mcg 7-14 TWO (2) ity of (0.03 %) 00:00: SPR[place]YS [place] nasal spray 00 EACH Medical NOSTRIL Branch EVERY 12 HOURS POTASSIUM 2022-0 Yes [id number] 10meq TAKE 1 U nivers CHLORIDE 10 7-14 TABLET BY ity of mEq CR 00:00: MOUTH [place] tablet 00 EVERY Medical SATURDAY, Branch SATURDAY, AND SATURDAY IPRATROPIUM 2022-0 Yes [id number] INSTILL [facility] 21 mcg 7-14 TWO (2) ity of (0.03 %) 00:00: [place]YS [place] nasal spray 00 EACH Medical NOSTRIL Branch EVERY 12 HOURS POTASSIUM 2022-0 Yes [id number] 10meq TAKE 1 U nivers CHLORIDE 10 7-14 TABLET BY ity of mEq CR 00:00: MOUTH [place] tablet 00 EVERY Medical SATURDAY, Branch SATURDAY, AND SATURDAY IPRATROPIUM 2022-0 Yes [id number] INSTILL [facility] 21 mcg 7-14 TWO (2) ity of (0.03 %) 00:00: SPR[place]YS [place] nasal spray 00 EACH Medical NOSTRIL Branch EVERY 12 HOURS POTASSIUM 2022-0 Yes [id number] 10meq TAKE 1 U nivers CHLORIDE 10 7-14 TABLET BY ity of mEq CR 00:00: MOUTH [place] tablet 00 EVERY Medical SATURDAY, Branch SATURDAY, AND SATURDAY IPRATROPIUM 2023-0 Yes [id number] INSTILL [facility] 21 mcg 7-14 TWO (2) ity of (0.03 %) 00:00: SPR[place]YS [place] nasal spray 00 EACH Medical NOSTRIL Branch EVERY 12 HOURS POTASSIUM 2022-0 Yes [id number] 10meq TAKE 1 U nivers CHLORIDE 10 7-14 TABLET BY ity of mEq CR 00:00: MOUTH [place] tablet 00 EVERY Medical SATURDAY, Branch SATURDAY, AND SATURDAY IPRATROPIUM 3-0 Yes [id number] INSTILL [facility] 21 mcg 7-14 TWO (2) ity of (0.03 %) 00:00: SPR[place]YS [place] nasal spray 00 EACH Medical NOSTRIL Branch EVERY 12 HOURS POTASSIUM 2022-0 Yes [id number] 10meq TAKE 1 U nivers CHLORIDE 10 7-14 TABLET BY ity of mEq CR 00:00: MOUTH [place] tablet 00 EVERY Medical SATURDAY, Branch SATURDAY, AND SATURDAY IPRATROPIUM 3-0 Yes [id number] INSTILL [facility] 21 mcg 7-14 TWO (2) ity of (0.03 %) 00:00: SPR[place]YS [place] nasal spray 00 EACH Medical NOSTRIL Branch EVERY 12 HOURS POTASSIUM 2022-0 Yes [id number] 10meq TAKE 1 U nivers CHLORIDE 10 7-14 TABLET BY ity of mEq CR 00:00: MOUTH [place] tablet 00 EVERY Medical SATURDAY, Branch SATURDAY, AND SATURDAY IPRATROPIUM 3-0 Yes [id number] INSTILL [facility] 21 mcg 7-14 TWO (2) ity of (0.03 %) 00:00: SPR[place]YS [place] nasal spray 00 EACH Medical NOSTRIL Branch EVERY 12 HOURS POTASSIUM 2022-0 Yes [id number] 10meq TAKE 1 U nivers CHLORIDE 10 7-14 TABLET BY ity of mEq CR 00:00: MOUTH [place] tablet 00 EVERY Medical SATURDAY, Branch SATURDAY, AND SATURDAY IPRATROPIUM 3-0 Yes [id number] INSTILL [facility] 21 mcg 7-14 TWO (2) ity of (0.03 %) 00:00: SPR[place]YS [place] nasal spray 00 EACH Medical NOSTRIL Branch EVERY 12 HOURS POTASSIUM 2022-0 Yes [id number] 10meq TAKE 1 U nivers CHLORIDE 10 7-14 TABLET BY ity of mEq CR 00:00: MOUTH [place] tablet 00 EVERY Medical SATURDAY, Branch SATURDAY, AND SATURDAY IPRATROPIUM 2022-0 Yes [id number] INSTILL [facility] 21 mcg 7-14 TWO (2) ity of (0.03 %) 00:00: [place]YS [place] nasal spray 00 EACH Medical NOSTRIL Branch EVERY 12 HOURS POTASSIUM 2022-0 Yes [id number] 10meq TAKE 1 U nivers CHLORIDE 10 7-14 TABLET BY ity of mEq CR 00:00: MOUTH [place] tablet 00 EVERY Medical SATURDAY, Branch SATURDAY, AND SATURDAY IPRATROPIUM 2022-0 Yes [id number] INSTILL [facility] 21 mcg 7-14 TWO (2) ity of (0.03 %) 00:00: SPR[place]YS [place] nasal spray 00 EACH Medical NOSTRIL Branch EVERY 12 HOURS POTASSIUM 2022-0 Yes [id number] 10meq TAKE 1 U nivers CHLORIDE 10 7-14 TABLET BY ity of mEq CR 00:00: MOUTH [place] tablet 00 EVERY Medical SATURDAY, Branch SATURDAY, AND SATURDAY IPRATROPIUM 2022-0 Yes [id number] INSTILL [facility] 21 mcg 7-14 TWO (2) ity of (0.03 %) 00:00: [place]YS [place] nasal spray 00 EACH Medical NOSTRIL Branch EVERY 12 HOURS POTASSIUM 2022-0 Yes [id number] 10meq TAKE 1 U nivers CHLORIDE 10 7-14 TABLET BY ity of mEq CR 00:00: MOUTH [place] tablet 00 EVERY Medical SATURDAY, Branch SATURDAY, AND SATURDAY IPRATROPIUM 2022-0 Yes [id number] INSTILL [facility] 21 mcg 7-14 TWO (2) ity of (0.03 %) 00:00: SPRAYS [place] nasal spray 00 EACH Medical NOSTRIL Branch EVERY 12 HOURS POTASSIUM 2022-0 Yes [id number] 10meq TAKE 1 U nivers CHLORIDE 10 7-14 TABLET BY ity of mEq CR 00:00: MOUTH [place] tablet 00 EVERY Medical SATURDAY, Branch SATURDAY, AND SATURDAY blood sugar 2022-0 Yes [id number] CHECK [facility] diagnostic 6-28 BLOOD ity of (ONETOUCH 00:00: GLUCOSE [place] ULTRA TEST) 00 FOUR TIMES Me dical strip DAILY Branch blood sugar 2023-0 Yes [id number] CHECK [facility] diagnostic 6-28 BLOOD ity of (ONETOUCH 00:00: GLUCOSE [place] ULTRA TEST) 00 FOUR TIMES Me dical strip DAILY Branch blood sugar 2023-0 Yes [id number] CHECK [facility] diagnostic 6-28 BLOOD ity of (ONETOUCH 00:00: GLUCOSE [place] ULTRA TEST) 00 FOUR TIMES Me dical strip DAILY Branch blood sugar 3-0 Yes [id number] CHECK [facility] diagnostic 6-28 BLOOD ity of (ONETOUCH 00:00: GLUCOSE [place] ULTRA TEST) 00 FOUR TIMES Me dical strip DAILY Branch blood sugar 3-0 Yes [id number] CHECK [facility] diagnostic 6-28 BLOOD ity of (ONETOUCH 00:00: GLUCOSE [place] ULTRA TEST) 00 FOUR TIMES Me dical strip DAILY Branch blood sugar 2023-0 Yes [id number] CHECK [facility] diagnostic 6-28 BLOOD ity of (ONETOUCH 00:00: GLUCOSE [place] ULTRA TEST) 00 FOUR TIMES Me dical strip DAILY Branch blood sugar 2023-0 Yes [id number] CHECK [facility] 6-28 BLOOD ity of (ONETOUCH 00:00: GLUCOSE [place] ULTRA TEST) 00 FOUR TIMES Me dical strip DAILY Branch blood sugar 2023-0 Yes [id number] CHECK [facility] diagnostic 6-28 BLOOD ity of (ONETOUCH 00:00: GLUCOSE [place] ULTRA TEST) 00 FOUR TIMES Me dical strip DAILY Branch blood sugar 2023-0 Yes [id number] CHECK [facility] diagnostic 6-28 BLOOD ity of (ONETOUCH 00:00: GLUCOSE [place] ULTRA TEST) 00 FOUR TIMES Me dical strip DAILY Branch blood sugar 2023-0 Yes [id number] CHECK [facility] diagnostic 6-28 BLOOD ity of (ONETOUCH 00:00: GLUCOSE [place] ULTRA TEST) 00 FOUR TIMES Me dical strip DAILY Branch blood sugar 2023-0 Yes [id number] CHECK [facility] diagnostic 6-28 BLOOD ity of (ONETOUCH 00:00: GLUCOSE [place] ULTRA TEST) 00 FOUR TIMES Me dical strip DAILY Branch blood sugar 2023-0 Yes [id number] CHECK [facility] diagnostic 6-28 BLOOD ity of (ONETOUCH 00:00: GLUCOSE [place] ULTRA TEST) 00 FOUR TIMES Me dical strip DAILY Branch blood sugar 2023-0 Yes [id number] CHECK [facility] diagnostic 6-28 BLOOD ity of (ONETOUCH 00:00: GLUCOSE [place] ULTRA TEST) 00 FOUR TIMES Me dical strip DAILY Branch blood sugar 2023-0 Yes [id number] CHECK [facility] diagnostic 6-28 BLOOD ity of (ONETOUCH 00:00: GLUCOSE [place] ULTRA TEST) 00 FOUR TIMES Me dical strip DAILY Branch blood sugar 3-0 Yes [id number] CHECK [facility] diagnostic 6-28 BLOOD ity of (ONETOUCH 00:00: GLUCOSE [place] ULTRA TEST) 00 FOUR TIMES Me dical strip DAILY Branch blood sugar 3-0 Yes [id number] CHECK [facility] diagnostic 6-28 BLOOD ity of (ONETOUCH 00:00: GLUCOSE [place] ULTRA TEST) 00 FOUR TIMES Me dical strip DAILY Branch blood sugar 3-0 Yes [id number] CHECK [facility] diagnostic 6-28 BLOOD ity of (ONETOUCH 00:00: GLUCOSE [place] ULTRA TEST) 00 FOUR TIMES Me dical strip DAILY Branch blood sugar 3-0 Yes [id number] CHECK [facility] diagnostic 6-28 BLOOD ity of (ONETOUCH 00:00: GLUCOSE [place] ULTRA TEST) 00 FOUR TIMES Me dical strip DAILY Branch blood sugar 3-0 Yes [id number] CHECK [facility] diagnostic 6-28 BLOOD ity of (ONETOUCH 00:00: GLUCOSE [place] ULTRA TEST) 00 FOUR TIMES Me dical strip DAILY Branch blood sugar 3-0 Yes [id number] CHECK [facility] diagnostic 6-28 BLOOD ity of (ONETOUCH 00:00: GLUCOSE [place] ULTRA TEST) 00 FOUR TIMES Me dical strip DAILY Branch blood sugar 2023-0 Yes [id number] CHECK [facility] diagnostic 6-28 BLOOD ity of (ONETOUCH 00:00: GLUCOSE [place] ULTRA TEST) 00 FOUR TIMES Me dical strip DAILY Branch blood sugar 2023-0 Yes [id number] CHECK [facility] diagnostic 6-28 BLOOD ity of (ONETOUCH 00:00: GLUCOSE [place] ULTRA TEST) 00 FOUR TIMES Me dical strip DAILY Branch blood sugar 2023-0 Yes [id number] CHECK [facility] diagnostic 6-28 BLOOD ity of (ONETOUCH 00:00: GLUCOSE [place] ULTRA TEST) 00 FOUR TIMES Me dical strip DAILY Branch blood sugar 2023-0 Yes [id number] CHECK [facility] diagnostic 6-28 BLOOD ity of (ONETOUCH 00:00: GLUCOSE [place] ULTRA TEST) 00 FOUR TIMES Me dical strip DAILY Branch blood sugar Yes [id number] CHECK [facility] diagnostic 05-01 BLOOD ity of (ONETOUCH 00:00: GLUCOSE [place] ULTRA TEST) 00 FOUR TIMES Me dical strip DAILY Branch blood sugar 202- No [id number] CHECK [facility] diagnostic 6-28 09-08 BLOOD ity of (ONETOUCH 00:00: 00:[place] ULTRA TEST) 00 :00 FOUR TIMES Me dical strip DAILY Branch albuterol Yes [id number] INHALE ONE [facility] 2.5 mg /3 6-23 VIAL VIA ity of mL (0.083 00:00: NEBULIZER [place] as %) 00 EVERY 4 Medical nebulizer HOURS Branch solution NEEDED FOR WHEEZING OR SHORTNESS OF BREATH aspirin Yes [id number] 81mg Take 1 U nivers (ADULT LOW 6-23 02 tablet by ity of DOSE 00:00: mouth in [place] ASPIRIN) 81 00 the Medical mg EC morning. Branch tablet diclofenac- Yes [id number] 1{tbl} Take 1 [facility] misoprostoL 6-23 tablet by ity of 50-200 00:00: mouth once [place] mg-mcg per 00 daily as Medic al tablet needed Branch (Chronic Pain - Arthritis, multiple joint involvemen t). DULoxetine Yes [id number] 60mg Take 1 [facility] 60 mg 6-23 capsule by ity of capsule 00:00: mouth in [place] 00 the Medical morning Branch and 1 capsule in the evening. methylPREDN Yes [id number] Take by [facility] ISolone 6-23 mouth ity of (MEDROL, 00:00: SEE-INSTRU [place] as ASH,) 4 mg 00 CTIONS. Medica l tablets follow Branch package directions albuterol Yes [id number] INHALE ONE [facility] 2.5 mg /3 6-23 VIAL VIA ity of mL (0.083 00:00: NEBULIZER [place] as %) 00 EVERY 4 Medical nebulizer HOURS Branch solution NEEDED FOR WHEEZING OR SHORTNESS OF BREATH aspirin Yes [id number] 81mg Take 1 U nivers (ADULT LOW 6-23 02 tablet by ity of DOSE 00:00: mouth in [place] ASPIRIN) 81 00 the Medical mg EC morning. Branch tablet diclofenac- 2022-0 Yes [id number] 1{tbl} Take 1 [facility] misoprostoL 6-23 tablet by ity of 50-200 00:00: mouth once [place] mg-mcg per 00 daily as Medic al tablet needed Branch (Chronic Pain - Arthritis, multiple joint involvemen t). DULoxetine 0 Yes 60mg Take 1 [facility] 60 mg 6-23 capsule by ity of capsule 00:00: mouth in [place] 00 the Medical morning Branch and 1 capsule in the evening. methylPREDN 0 Yes Take by [facility] ISolone 6-23 mouth ity of (MEDROL, 00:00: SEE-INSTRU [place] as ASH,) 4 mg 00 CTIONS. Medica l tablets follow Branch package directions albuterol Yes [id number] INHALE ONE [facility] 2.5 mg /3 6-23 VIAL VIA ity of mL (0.083 00:00: NEBULIZER [place] as %) 00 EVERY 4 Medical nebulizer HOURS Branch solution NEEDED FOR WHEEZING OR SHORTNESS OF BREATH aspirin Yes [id number] 81mg Take 1 U nivers (ADULT LOW 6-23 02 tablet by ity of DOSE 00:00: mouth in [place] ASPIRIN) 81 00 the Medical mg EC morning. Branch tablet diclofenac- Yes [id number] 1{tbl} Take 1 [facility] misoprostoL 6-23 tablet by ity of 50-200 00:00: mouth once [place] mg-mcg per 00 daily as Medic al tablet needed Branch (Chronic Pain - Arthritis, multiple joint involvemen t). DULoxetine Yes 60mg Take 1 [facility] 60 mg 6-23 capsule by ity of capsule 00:00: mouth in [place] [id number] the Medical morning Branch and 1 capsule in the evening. methylPREDN 2022-0 Yes Take by [facility] ISolone 6-23 mouth ity of (MEDROL, 00:00: SEE-INSTRU [place] as ASH,) 4 mg 00 CTIONS. Medica l tablets follow Branch package directions albuterol 0 Yes [id number] INHALE ONE [facility] 2.5 mg /3 6-23 VIAL VIA ity of mL (0.083 00:00: NEBULIZER [place] as %) 00 EVERY 4 Medical nebulizer HOURS Branch solution NEEDED FOR WHEEZING OR SHORTNESS OF BREATH aspirin Yes [id number] 81mg Take 1 U nivers (ADULT LOW 6-23 02 tablet by ity of DOSE 00:00: mouth in [place] ASPIRIN) 81 00 the Medical mg EC morning. Branch tablet diclofenac- 0 Yes [id number] 1{tbl} Take 1 [facility] misoprostoL 6-23 tablet by ity of 50-200 00:00: mouth once [place] mg-mcg per 00 daily as Medic al tablet needed Branch (Chronic Pain - Arthritis, multiple joint involvemen t). DULoxetine Yes 60mg Take 1 [facility] 60 mg 6-23 capsule by ity of capsule 00:00: mouth in [place] 00 the Medical morning Branch and 1 capsule in the evening. methylPREDN Yes Take by [facility] ISolone 6-23 mouth ity of (MEDROL, 00:00: SEE-INSTRU [place] as ASH,) 4 mg 00 CTIONS. Medica l tablets follow Branch package directions albuterol Yes [id number] INHALE ONE [facility] 2.5 mg /3 6-23 VIAL VIA ity of mL (0.083 00:00: NEBULIZER [place] as %) 00 EVERY 4 Medical nebulizer HOURS Branch solution NEEDED FOR WHEEZING OR SHORTNESS OF BREATH aspirin Yes [id number] 81mg Take 1 U nivers (ADULT LOW 6-23 02 tablet by ity of DOSE 00:00: mouth in [place] ASPIRIN) 81 00 the Medical mg EC morning. Branch tablet diclofenac- 0 Yes [id number] 1{tbl} Take 1 [facility] misoprostoL 6-23 tablet by ity of 50-200 00:00: mouth once [place] mg-mcg per 00 daily as Medic al tablet needed Branch (Chronic Pain - Arthritis, multiple joint involvemen t). DULoxetine Yes 60mg Take 1 [facility] 60 mg 6-23 capsule by ity of capsule 00:00: mouth in [place] 00 the Medical morning Branch and 1 capsule in the evening. methylPREDN 0 Yes Take by [facility] ISolone 6-23 mouth ity of (MEDROL, 00:00: SEE-INSTRU [place] as ASH,) 4 mg 00 CTIONS. Medica l tablets follow Branch package directions albuterol 0 Yes [id number] INHALE ONE [facility] 2.5 mg /3 6-23 VIAL VIA ity of mL (0.083 00:00: NEBULIZER [place] as %) 00 EVERY 4 Medical nebulizer HOURS Branch solution NEEDED FOR WHEEZING OR SHORTNESS OF BREATH aspirin 0 Yes [id number] 81mg Take 1 U nivers (ADULT LOW 6-23 02 tablet by ity of DOSE 00:00: mouth in [place] ASPIRIN) 81 00 the Medical mg EC morning. Branch tablet diclofenac- 0 Yes [id number] 1{tbl} Take 1 [facility] misoprostoL 6-23 tablet by ity of 50-200 00:00: mouth once [place] mg-mcg per 00 daily as Medic al tablet needed Branch (Chronic Pain - Arthritis, multiple joint involvemen t). DULoxetine Yes 60mg Take 1 [facility] 60 mg 6-23 capsule by ity of capsule 00:00: mouth in [place] 00 the Medical morning Branch and 1 capsule in the evening. methylPREDN Yes [id number] Take by [facility] ISolone 6-23 mouth ity of (MEDROL, 00:00: SEE-INSTRU [place] as ASH,) 4 mg 00 CTIONS. Medica l tablets follow Branch package directions albuterol Yes [id number] INHALE ONE [facility] 2.5 mg /3 6-23 VIAL VIA ity of mL (0.083 00:00: NEBULIZER [place] as %) 00 EVERY 4 Medical nebulizer HOURS Branch solution NEEDED FOR WHEEZING OR SHORTNESS OF BREATH aspirin 0 Yes [id number] 81mg Take 1 U nivers (ADULT LOW 6-23 02 tablet by ity of DOSE 00:00: mouth in [place] ASPIRIN) 81 00 the Medical mg EC morning. Branch tablet diclofenac- 2022-0 Yes [id number] 1{tbl} Take 1 [facility] misoprostoL 6-23 tablet by ity of 50-200 00:00: mouth once [place] mg-mcg per 00 daily as Medic al tablet needed Branch (Chronic Pain - Arthritis, multiple joint involvemen t). DULoxetine Yes 60mg Take 1 [facility] 60 mg 6-23 capsule by ity of capsule 00:00: mouth in [place] 00 the Medical morning Branch and 1 capsule in the evening. methylPREDN 2023-0 Yes [id number] Take by [facility] ISolone 6-23 mouth ity of (MEDROL, 00:00: SEE-INSTRU [place] as ASH,) 4 mg 00 CTIONS. Medica l tablets follow Branch package directions albuterol Yes [id number] INHALE ONE [facility] 2.5 mg /3 6-23 VIAL VIA ity of mL (0.083 00:00: NEBULIZER [place] as %) 00 EVERY 4 Medical nebulizer HOURS Branch solution NEEDED FOR WHEEZING OR SHORTNESS OF BREATH aspirin Yes [id number] 81mg Take 1 U nivers (ADULT LOW 6-23 02 tablet by ity of DOSE 00:00: mouth in [place] ASPIRIN) 81 00 the Medical mg EC morning. Branch tablet diclofenac- Yes [id number] 1{tbl} Take 1 [facility] misoprostoL 6-23 tablet by ity of 50-200 00:00: mouth once [place] mg-mcg per 00 daily as Medic al tablet needed Branch (Chronic Pain - Arthritis, multiple joint involvemen t). DULoxetine Yes [id number] 60mg Take 1 [facility] 60 mg 6-23 capsule by ity of capsule 00:00: mouth in [place] 00 the Medical morning Branch and 1 capsule in the evening. methylPREDN Yes [id number] Take by [facility] ISolone 6-23 mouth ity of (MEDROL, 00:00: SEE-INSTRU [place] as ASH,) 4 mg 00 CTIONS. Medica l tablets follow Branch package directions albuterol Yes [id number] INHALE ONE [facility] 2.5 mg /3 6-23 VIAL VIA ity of mL (0.083 00:00: NEBULIZER [place] as %) 00 EVERY 4 Medical nebulizer HOURS Branch solution NEEDED FOR WHEEZING OR SHORTNESS OF BREATH aspirin 0 Yes [id number] 81mg Take 1 U nivers (ADULT LOW 6-23 02 tablet by ity of DOSE 00:00: mouth in [place] ASPIRIN) 81 00 the Medical mg EC morning. Branch tablet diclofenac- 0 Yes [id number] 1{tbl} Take 1 [facility] misoprostoL 6-23 tablet by ity of 50-200 00:00: mouth once [place] mg-mcg per 00 daily as Medic al tablet needed Branch (Chronic Pain - Arthritis, multiple joint involvemen t). DULoxetine 2022-0 Yes 60mg Take 1 [facility] 60 mg 6-23 capsule by ity of capsule 00:00: mouth in [place] 00 the Medical morning Branch and 1 capsule in the evening. methylPREDN 2022-0 Yes Take by [facility] ISolone 6-23 mouth ity of (MEDROL, 00:00: SEE-INSTRU [place] as ASH,) 4 mg 00 CTIONS. Medica l tablets follow Branch package directions albuterol Yes [id number] INHALE ONE [facility] 2.5 mg /3 6-23 VIAL VIA ity of mL (0.083 00:00: NEBULIZER [place] as %) 00 EVERY 4 Medical nebulizer HOURS Branch solution NEEDED FOR WHEEZING OR SHORTNESS OF BREATH aspirin 0 Yes [id number] 81mg Take 1 U nivers (ADULT LOW 6-23 02 tablet by ity of DOSE 00:00: mouth in [place] ASPIRIN) 81 00 the Medical mg EC morning. Branch tablet diclofenac- 2022-0 Yes [id number] 1{tbl} Take 1 [facility] misoprostoL 6-23 tablet by ity of 50-200 00:00: mouth once [place] mg-mcg per 00 daily as Medic al tablet needed Branch (Chronic Pain - Arthritis, multiple joint involvemen t). DULoxetine Yes 60mg Take 1 [facility] 60 mg 6-23 capsule by ity of capsule 00:00: mouth in [place] 00 the Medical morning Branch and 1 capsule in the evening. methylPREDN 0 Yes Take by [facility] ISolone 6-23 mouth ity of (MEDROL, 00:00: SEE-INSTRU [place] as ASH,) 4 mg 00 CTIONS. Medica l tablets follow Branch package directions albuterol Yes [id number] INHALE ONE [facility] 2.5 mg /3 6-23 VIAL VIA ity of mL (0.083 00:00: NEBULIZER [place] as %) 00 EVERY 4 Medical nebulizer HOURS Branch solution NEEDED FOR WHEEZING OR SHORTNESS OF BREATH aspirin 2022-0 Yes [id number] 81mg Take 1 U nivers (ADULT LOW 6-23 02 tablet by ity of DOSE 00:00: mouth in [place] ASPIRIN) 81 00 the Medical mg EC morning. Branch tablet diclofenac- 2022-0 Yes [id number] 1{tbl} Take 1 [facility] misoprostoL 6-23 tablet by ity of 50-200 00:00: mouth once [place] mg-mcg per 00 daily as Medic al tablet needed Branch (Chronic Pain - Arthritis, multiple joint involvemen t). DULoxetine 0 Yes 60mg Take 1 [facility] 60 mg 6-23 capsule by ity of capsule 00:00: mouth in [place] 00 the Medical morning Branch and 1 capsule in the evening. methylPREDN 2022-0 Yes Take by [facility] ISolone 6-23 mouth ity of (MEDROL, 00:00: SEE-INSTRU [place] as ASH,) 4 mg 00 CTIONS. Medica l tablets follow Branch package directions albuterol Yes [id number] INHALE ONE [facility] 2.5 mg /3 6-23 VIAL VIA ity of mL (0.083 00:00: NEBULIZER [place] as %) 00 EVERY 4 Medical nebulizer HOURS Branch solution NEEDED FOR WHEEZING OR SHORTNESS OF BREATH aspirin Yes [id number] 81mg Take 1 U nivers (ADULT LOW 6-23 02 tablet by ity of DOSE 00:00: mouth in [place] ASPIRIN) 81 00 the Medical mg EC morning. Branch tablet diclofenac- Yes [id number] 1{tbl} Take 1 [facility] misoprostoL 6-23 tablet by ity of 50-200 00:00: mouth once [place] mg-mcg per 00 daily as Medic al tablet needed Branch (Chronic Pain - Arthritis, multiple joint involvemen t). DULoxetine Yes 60mg Take 1 [facility] 60 mg 6-23 capsule by ity of capsule 00:00: mouth in [place] 00 the Medical morning Branch and 1 capsule in the evening. methylPREDN 2022-0 Yes Take by [facility] ISolone 6-23 mouth ity of (MEDROL, 00:00: SEE-INSTRU [place] as ASH,) 4 mg 00 CTIONS. Medica l tablets follow Branch package directions albuterol 0 Yes [id number] INHALE ONE [facility] 2.5 mg /3 6-23 VIAL VIA ity of mL (0.083 00:00: NEBULIZER [place] as %) 00 EVERY 4 Medical nebulizer HOURS Branch solution NEEDED FOR WHEEZING OR SHORTNESS OF BREATH aspirin Yes [id number] 81mg Take 1 U nivers (ADULT LOW 6-23 02 tablet by ity of DOSE 00:00: mouth in [place] ASPIRIN) 81 00 the Medical mg EC morning. Branch tablet diclofenac- Yes [id number] 1{tbl} Take 1 [facility] misoprostoL 6-23 tablet by ity of 50-200 00:00: mouth once [place] mg-mcg per 00 daily as Medic al tablet needed Branch (Chronic Pain - Arthritis, multiple joint involvemen t). DULoxetine Yes 60mg Take 1 [facility] 60 mg 6-23 capsule by ity of capsule 00:00: mouth in [place] 00 the Medical morning Branch and 1 capsule in the evening. methylPREDN Yes Take by [facility] ISolone 6-23 mouth ity of (MEDROL, 00:00: SEE-INSTRU [place] as ASH,) 4 mg 00 CTIONS. Medica l tablets follow Branch package directions albuterol Yes [id number] INHALE ONE [facility] 2.5 mg /3 6-23 VIAL VIA ity of mL (0.083 00:00: NEBULIZER [place] as %) 00 EVERY 4 Medical nebulizer HOURS Branch solution NEEDED FOR WHEEZING OR SHORTNESS OF BREATH aspirin Yes [id number] 81mg Take 1 U nivers (ADULT LOW 6-23 02 tablet by ity of DOSE 00:00: mouth in [place] ASPIRIN) 81 00 the Medical mg EC morning. Branch tablet diclofenac- Yes [id number] 1{tbl} Take 1 [facility] misoprostoL 6-23 tablet by ity of 50-200 00:00: mouth once [place] mg-mcg per 00 daily as Medic al tablet needed Branch (Chronic Pain - Arthritis, multiple joint involvemen t). DULoxetine Yes 60mg Take 1 [facility] 60 mg 6-23 capsule by ity of capsule 00:00: mouth in [place] 00 the Medical morning Branch and 1 capsule in the evening. methylPREDN 0 Yes Take by [facility] ISolone 6-23 mouth ity of (MEDROL, 00:00: SEE-INSTRU [place] as ASH,) 4 mg 00 CTIONS. Medica l tablets follow Branch package directions aspirin Yes [id number] 81mg Take 1 U nivers (ADULT LOW 6-23 02 tablet by ity of DOSE 00:00: mouth in [place] ASPIRIN) 81 00 the Medical mg EC morning. Branch tablet DULoxetine Yes [id number] 60mg Take 1 [facility] 60 mg 6-23 capsule by ity of capsule 00:00: mouth in [place] 00 the Medical morning Branch and 1 capsule in the evening. methylPREDN 2022-0 Yes [id number] Take by [facility] ISolone 6-23 mouth ity of (MEDROL, 00:00: SEE-INSTRU [place] as ASH,) 4 mg 00 CTIONS. Medica l tablets follow Branch package directions aspirin Yes [id number] 81mg Take 1 U nivers (ADULT LOW 6-23 02 tablet by ity of DOSE 00:00: mouth in [place] ASPIRIN) 81 00 the Medical mg EC morning. Branch tablet DULoxetine Yes [id number] 60mg Take 1 [facility] 60 mg 6-23 capsule by ity of capsule 00:00: mouth in [place] 00 the Medical morning Branch and 1 capsule in the evening. methylPREDN 2022-0 Yes [id number] Take by [facility] ISolone 6-23 mouth ity of (MEDROL, 00:00: SEE-INSTRU [place] as ASH,) 4 mg 00 CTIONS. Medica l tablets follow Branch package directions aspirin Yes [id number] 81mg Take 1 U nivers (ADULT LOW 6-23 02 tablet by ity of DOSE 00:00: mouth in [place] ASPIRIN) 81 00 the Medical mg EC morning. Branch tablet DULoxetine Yes [id number] 60mg Take 1 [facility] 60 mg 6-23 capsule by ity of capsule 00:00: mouth in [place] 00 the Medical morning Branch and 1 capsule in the evening. methylPREDN 2022-0 Yes [id number] Take by [facility] ISolone 6-23 mouth ity of (MEDROL, 00:00: SEE-INSTRU [place] as ASH,) 4 mg 00 CTIONS. Medica l tablets follow Branch package directions aspirin Yes [id number] 81mg Take 1 U nivers (ADULT LOW 6-23 02 tablet by ity of DOSE 00:00: mouth in [place] ASPIRIN) 81 00 the Medical mg EC morning. Branch tablet DULoxetine 2023-0 Yes 60mg Take 1 [facility] 60 mg 6-23 capsule by ity of capsule 00:00: mouth in [place] 00 the Medical morning Branch and 1 capsule in the evening. methylPREDN 2022-0 Yes Take by [facility] ISolone 6-23 mouth ity of (MEDROL, 00:00: SEE-INSTRU [place] as ASH,) 4 mg 00 CTIONS. Medica l tablets follow Branch package directions aspirin 2022-0 Yes [id number] 81mg Take 1 U nivers (ADULT LOW 6-23 02 tablet by ity of DOSE 00:00: mouth in [place] ASPIRIN) 81 00 the Medical mg EC morning. Branch tablet DULoxetine 2022-0 Yes [id number] 60mg Take 1 [facility] 60 mg 6-23 capsule by ity of capsule 00:00: mouth in [place] 00 the Medical morning Branch and 1 capsule in the evening. methylPREDN 2022-0 Yes Take by [facility] ISolone 6-23 mouth ity of (MEDROL, 00:00: SEE-INSTRU [place] as ASH,) 4 mg 00 CTIONS. Medica l tablets follow Branch package directions aspirin 2022-0 Yes [id number] 81mg Take 1 U nivers (ADULT LOW 6-23 02 tablet by ity of DOSE 00:00: mouth in [place] ASPIRIN) 81 00 the Medical mg EC morning. Branch tablet DULoxetine 2022-0 Yes 60mg Take 1 [facility] 60 mg 6-23 capsule by ity of capsule 00:00: mouth in [place] 00 the Medical morning Branch and 1 capsule in the evening. methylPREDN 2022-0 Yes Take by [facility] ISolone 6-23 mouth ity of (MEDROL, 00:00: SEE-INSTRU [place] as ASH,) 4 mg 00 CTIONS. Medica l tablets follow Branch package directions aspirin 2022-0 Yes [id number] 81mg Take 1 U nivers (ADULT LOW 6-23 02 tablet by ity of DOSE 00:00: mouth in [place] ASPIRIN) 81 00 the Medical mg EC morning. Branch tablet DULoxetine 2022-0 Yes [id number] 60mg Take 1 [facility] 60 mg 6-23 capsule by ity of capsule 00:00: mouth in [place] 00 the Medical morning Branch and 1 capsule in the evening. methylPREDN 2022-0 Yes Take by [facility] ISolone 6-23 mouth ity of (MEDROL, 00:00: SEE-INSTRU [place] as ASH,) 4 mg 00 CTIONS. Medica l tablets follow Branch package directions aspirin 2022-0 Yes [id number] 81mg Take 1 U nivers (ADULT LOW 6-23 02 tablet by ity of DOSE 00:00: mouth in [place] ASPIRIN) 81 00 the Medical mg EC morning. Branch tablet DULoxetine 2022-0 Yes [id number] 60mg Take 1 [facility] 60 mg 6-23 capsule by ity of capsule 00:00: mouth in [place] 00 the Medical morning Branch and 1 capsule in the evening. methylPREDN 2022-0 Yes Take by [facility] ISolone 6-23 mouth ity of (MEDROL, 00:00: SEE-INSTRU [place] as ASH,) 4 mg 00 CTIONS. Medica l tablets follow Branch package directions aspirin 2022-0 Yes [id number] 81mg Take 1 U nivers (ADULT LOW 6-23 02 tablet by ity of DOSE 00:00: mouth in [place] ASPIRIN) 81 00 the Medical mg EC morning. Branch tablet DULoxetine 2022-0 Yes [id number] 60mg Take 1 [facility] 60 mg 6-23 capsule by ity of capsule 00:00: mouth in [place] 00 the Medical morning Branch and 1 capsule in the evening. methylPREDN 2022-0 Yes Take by [facility] ISolone 6-23 mouth ity of (MEDROL, 00:00: SEE-INSTRU [place] as ASH,) 4 mg 00 CTIONS. Medica l tablets follow Branch package directions aspirin 2022-0 Yes [id number] 81mg Take 1 U nivers (ADULT LOW 6-23 02 tablet by ity of DOSE 00:00: mouth in [place] ASPIRIN) 81 00 the Medical mg EC morning. Branch tablet DULoxetine 2022-0 Yes [id number] 60mg Take 1 [facility] 60 mg 6-23 capsule by ity of capsule 00:00: mouth in [place] 00 the Medical morning Branch and 1 capsule in the evening. methylPREDN 2022-0 Yes Take by [facility] ISolone 6-23 mouth ity of (MEDROL, 00:00: SEE-INSTRU [place] as ASH,) 4 mg 00 CTIONS. Medica l tablets follow Branch package directions aspirin 2022-0 Yes [id number] 81mg Take 1 U nivers (ADULT LOW 6-23 02 tablet by ity of DOSE 00:00: mouth in [place] ASPIRIN) 81 00 the Medical mg EC morning. Branch tablet DULoxetine 0 Yes [id number] 60mg Take 1 [facility] 60 mg 6-23 capsule by ity of capsule 00:00: mouth in [place] 00 the Medical morning Branch and 1 capsule in the evening. methylPREDN 2022-0 Yes Take by [facility] ISolone 6-23 mouth ity of (MEDROL, 00:00: SEE-INSTRU [place] as ASH,) 4 mg 00 CTIONS. Medica l tablets follow Branch package directions aspirin Yes [id number] 81mg Take 1 U nivers (ADULT LOW 6-23 02 tablet by ity of DOSE 00:00: mouth in [place] ASPIRIN) 81 00 the Medical mg EC morning. Branch tablet DULoxetine 0 Yes 60mg Take 1 [facility] 60 mg 6-23 capsule by ity of capsule 00:00: mouth in [place] 00 the Medical morning Branch and 1 capsule in the evening. methylPREDN 2022-0 Yes Take by [facility] ISolone 6-23 mouth ity of (MEDROL, 00:00: SEE-INSTRU [place] as ASH,) 4 mg 00 CTIONS. Medica l tablets follow Branch package directions aspirin Yes [id number] 81mg Take 1 U nivers (ADULT LOW 6-23 02 tablet by ity of DOSE 00:00: mouth in [place] ASPIRIN) 81 00 the Medical mg EC morning. Branch tablet DULoxetine 2022-0 Yes 60mg Take 1 [facility] 60 mg 6-23 capsule by ity of capsule 00:00: mouth in [place] 00 the Medical morning Branch and 1 capsule in the evening. methylPREDN 2022-0 Yes Take by [facility] ISolone 6-23 mouth ity of (MEDROL, 00:00: SEE-INSTRU [place] as ASH,) 4 mg 00 CTIONS. Medica l tablets follow Branch package directions aspirin 0 Yes [id number] 81mg Take 1 U nivers (ADULT LOW 6-23 02 tablet by ity of DOSE 00:00: mouth in [place] ASPIRIN) 81 00 the Medical mg EC morning. Branch tablet DULoxetine 0 Yes [id number] 60mg Take 1 [facility] 60 mg 6-23 capsule by ity of capsule 00:00: mouth in [place] 00 the Medical morning Branch and 1 capsule in the evening. methylPREDN 2022-0 Yes Take by [facility] ISolone 6-23 mouth ity of (MEDROL, 00:00: SEE-INSTRU [place] as ASH,) 4 mg 00 CTIONS. Medica l tablets follow Branch package directions aspirin 2022-0 Yes [id number] 81mg Take 1 U nivers (ADULT LOW 6-23 02 tablet by ity of DOSE 00:00: mouth in [place] ASPIRIN) 81 00 the Medical mg EC morning. Branch tablet DULoxetine 2022-0 Yes 60mg Take 1 [facility] 60 mg 6-23 capsule by ity of capsule 00:00: mouth in [place] 00 the Medical morning Branch and 1 capsule in the evening. methylPREDN 2022-0 Yes Take by [facility] ISolone 6-23 mouth ity of (MEDROL, 00:00: SEE-INSTRU [place] as ASH,) 4 mg 00 CTIONS. Medica l tablets follow Branch package directions aspirin 2022-0 Yes [id number] 81mg Take 1 [facility] n[facility] (ADULT LOW 6-23 02 tablet by ity of DOSE 00:00: mouth in [place] ASPIRIN) 81 00 the Medical mg EC morning. Branch tablet DULoxetine 2022-0 Yes [id number] 60mg Take 1 [facility] 60 mg 6-23 capsule by ity of capsule 00:00: mouth in [place] 00 the Medical morning Branch and 1 capsule in the evening. methylPREDN 2022-0 Yes Take by [facility] ISolone 6-23 mouth ity of (MEDROL, 00:00: SEE-INSTRU [place] ASH,) 4 mg 00 CTIONS. Medica l tablets follow Branch package directions aspirin 2022-0 Yes [id number] 81mg Take 1 [facility] n[facility] (ADULT LOW 6-23 02 tablet by ity of DOSE 00:00: mouth in [place] ASPIRIN) 81 00 the Medical mg EC morning. Branch tablet DULoxetine 2022-0 Yes [id number] 60mg Take 1 [facility] 60 mg 6-23 capsule by ity of capsule 00:00: mouth in [place] 00 the Medical morning Branch and 1 capsule in the evening. aspirin 3-0 Yes [id number] 81mg Take 1 [facility] (ADULT LOW 6-23 02 tablet by ity of DOSE 00:00: mouth in [place] ASPIRIN) 81 00 the Medical mg EC morning. Branch tablet DULoxetine 2022-0 Yes [id number] 60mg Take 1 [facility] 60 mg 6-23 capsule by ity of capsule 00:00: mouth in [place] 00 the Medical morning Branch and 1 capsule in the evening. aspirin 3-0 Yes [id number] 81mg Take 1 [facility] (ADULT LOW 6-23 02 tablet by ity of DOSE 00:00: mouth in [place] ASPIRIN) 81 00 the Medical mg EC morning. Branch tablet DULoxetine 2022-0 Yes [id number] 60mg Take 1 [facility] 60 mg 6-23 capsule by ity of capsule 00:00: mouth in [place] 00 the Medical morning Branch and 1 capsule in the evening. aspirin 2022-0 Yes [id number] 81mg Take 1 [facility] (ADULT LOW 6-23 02 tablet by ity of DOSE 00:00: mouth in [place] ASPIRIN) 81 00 the Medical mg EC morning. Branch tablet DULoxetine 2022-0 Yes [id number] 60mg Take 1 [facility] 60 mg 6-23 capsule by ity of capsule 00:00: mouth in [place] 00 the Medical morning Branch and 1 capsule in the evening. aspirin 2022-0 Yes [id number] 81mg Take 1 [facility] (ADULT LOW 6-23 02 tablet by ity of DOSE 00:00: mouth in [place] ASPIRIN) 81 00 the Medical mg EC morning. Branch tablet DULoxetine 2022-0 Yes [id number] 60mg Take 1 [facility] 60 mg 6-23 capsule by ity of capsule 00:00: mouth in [place] 00 the Medical morning Branch and 1 capsule in the evening. methylPREDN 2022-0 2022- No Take by [facility] 04-26 mouth ity of (MEDROL, 00:00: 00:00 [place]IN[place] ASH,) 4 mg 00 :00 CTIONS. Medica l tablets follow Branch package directions methylPREDN 2022-0 2022- No Take by [facility] 04-26 mouth ity of (MEDROL, 00:00: 00:[place] ASH,) 4 mg 00 :00 CTIONS. Medica l tablets follow Branch package directions methylPREDN No [id number] Take by [facility] 04-26 mouth ity of (MEDROL, 00:00: 00:[place] ASH,) 4 mg 00 :00 CTIONS. Medica l tablets follow Branch package directions methylPREDN 2022- No [id number] Take by [facility] 04-26 mouth ity of (MEDROL, 00:00: 00:00 [place] ASH,) 4 mg 00 :00 CTIONS. Medica l tablets follow Branch package directions albuterol 2022- No [id number] INHALE ONE [facility] 2.5 mg /3 04-26- VIAL VIA ity o f mL (0.083 00:00: 00:00 [place]IZ[place] 00 :00 EVERY 4 Medical nebulizer HOURS Branch solution NEEDED FOR WHEEZING OR SHORTNESS OF BREATH diclofenac- 2022- No [id number] 1{tbl} Take 1 [facility] misoprostoL 04-26 tablet by it y of 50-200 00:00: 00:[place] mg-mcg per 00 :00 daily as Medic al tablet needed Branch (Chronic Pain - Arthritis, multiple joint involvemen t). albuterol No [id number] INHALE ONE [facility] 2.5 mg /3 04-26 VIAL VIA ity o f mL (0.083 00:00: 00:00 [place] 00 :00 EVERY 4 Medical nebulizer HOURS Branch solution NEEDED FOR WHEEZING OR SHORTNESS OF BREATH diclofenac- 2022- No [id number] 1{tbl} Take 1 [facility] misoprostoL 04-26-28 tablet by it y of 50-200 00:00: 00:00 [place] mg-mcg per 00 :00 daily as Medic al tablet needed Branch (Chronic Pain - Arthritis, multiple joint involvemen t). albuterol 2022- No [id number] INHALE ONE [facility] 2.5 mg /3 04-26-28 VIAL VIA ity o f mL (0.083 00:00: 00:[place] 00 :00 EVERY 4 Medical nebulizer HOURS Branch solution NEEDED FOR WHEEZING OR SHORTNESS OF BREATH diclofenac- 2022-0 2023- No [id number] 1{tbl} Take 1 [facility] misoprostoL 6-23 07-28 tablet by it y of 50-200 00:00: 00:00 [place] mg-mcg per 00 :00 daily as Medic al tablet needed Branch (Chronic Pain - Arthritis, multiple joint involvemen t). potassium 2022-0 Yes [id number] 10meq Take 1 [facility] nivers chloride 10 5-10 tablet by ity of mEq CR 00:00: mouth [place] tablet 00 every Medical Saturday, Branch Saturday and Saturday. potassium 0 Yes [id number] 10meq Take 1 [facility] chloride 10 5-10 tablet by ity of mEq CR 00:00: mouth [place] tablet 00 every Medical Saturday, Branch Saturday and Saturday. potassium 0 Yes [id number] 10meq Take 1 [facility] n[facility] chloride 10 5-10 tablet by ity of mEq CR 00:00: mouth [place] tablet 00 every Medical Saturday, Branch Saturday and Saturday. potassium 0 Yes [id number] 10meq Take 1 [facility] chloride 10 5-10 tablet by ity of mEq CR 00:00: mouth [place] tablet 00 every Medical Saturday, Branch Saturday and Saturday. potassium 0 Yes [id number] 10meq Take 1 [facility] nivers chloride 10 5-10 tablet by ity of mEq CR 00:00: mouth [place] tablet 00 every Medical Saturday, Branch Saturday and Saturday. potassium 0 Yes [id number] 10meq Take 1 [facility] chloride 10 5-10 tablet by ity of mEq CR 00:00: mouth [place] tablet 00 every Medical Saturday, Branch Saturday and Saturday. potassium 0 Yes [id number] 10meq Take 1 [facility] n[facility] chloride 10 5-10 tablet by ity of mEq CR 00:00: mouth [place] tablet 00 every Medical Saturday, Branch Saturday and Saturday. potassium 0 Yes [id number] 10meq Take 1 [facility] nivers chloride 10 5-10 tablet by ity of mEq CR 00:00: mouth [place] tablet 00 every Medical Saturday, Branch Saturday and Saturday. potassium 0 Yes [id number] 10meq Take 1 [facility] nivers chloride 10 5-10 tablet by ity of mEq CR 00:00: mouth [place] tablet 00 every Medical Saturday, Branch Saturday and Saturday. potassium 2022-0 Yes [id number] 10meq Take 1 [facility] nivers chloride 10 5-10 tablet by ity of mEq CR 00:00: mouth [place] tablet 00 every Medical Saturday, Branch Saturday and Saturday. potassium 2022-0 Yes [id number] 10meq Take 1 [facility] nivers chloride 10 5-10 tablet by ity of mEq CR 00:00: mouth [place] tablet 00 every Medical Saturday, Branch Saturday and Saturday. potassium 2022-0 Yes [id number] 10meq Take 1 [facility] nivers chloride 10 5-10 tablet by ity of mEq CR 00:00: mouth [place] tablet 00 every Medical Saturday, Branch Saturday and Saturday. potassium 2022-0 Yes [id number] 10meq Take 1 [facility] nivers chloride 10 5-10 tablet by ity of mEq CR 00:00: mouth [place] tablet 00 every Medical Saturday, Branch Saturday and Saturday. potassium 2022-0 Yes [id number] 10meq Take 1 [facility] chloride 10 5-10 tablet by ity of mEq CR 00:00: mouth [place] tablet 00 every Medical Saturday, Branch Saturday and Saturday. potassium 2022-0 Yes [id number] 10meq Take 1 [facility] n[facility] chloride 10 5-10 tablet by ity of mEq CR 00:00: mouth [place] tablet 00 every Medical Saturday, Branch Saturday and Saturday. potassium 2022-0 Yes [id number] 10meq Take 1 [facility] n[facility] chloride 10 5-10 tablet by ity of mEq CR 00:00: mouth [place] tablet 00 every Medical Saturday, Branch Saturday and Saturday. potassium 2022-0 Yes [id number] 10meq Take 1 [facility] nivers chloride 10 5-10 tablet by ity of mEq CR 00:00: mouth [place] tablet 00 every Medical Saturday, Branch Saturday and Saturday. potassium 2022-0 Yes [id number] 10meq Take 1 [facility] n[facility] chloride 10 5-10 tablet by ity of mEq CR 00:00: mouth [place] tablet 00 every Medical Saturday, Branch Saturday and Saturday. potassium 2022-0 Yes [id number] 10meq Take 1 [facility] n[facility] chloride 10 5-10 tablet by ity of mEq CR 00:00: mouth [place] tablet 00 every Medical Saturday, Branch Saturday and Saturday. potassium 2022-0 Yes [id number] 10meq Take 1 [facility] nivers chloride 10 5-10 tablet by ity of mEq CR 00:00: mouth [place] tablet 00 every Medical Saturday, Branch Saturday and Saturday. potassium 2022-0 Yes [id number] 10meq Take 1 [facility] n[facility] chloride 10 5-10 tablet by ity of mEq CR 00:00: mouth [place] tablet 00 every Medical Saturday, Branch Saturday and Saturday. potassium 2022-0 Yes [id number] 10meq Take 1 [facility] n[facility] chloride 10 5-10 tablet by ity of mEq CR 00:00: mouth [place] tablet 00 every Medical Saturday, Branch Saturday and Saturday. potassium 0 Yes [id number] 10meq Take 1 [facility] n[facility] chloride 10 5-10 tablet by ity of mEq CR 00:00: mouth [place] tablet 00 every Medical Saturday, Branch Saturday and Saturday. potassium 0 Yes [id number] 10meq Take 1 [facility] n[facility] chloride 10 5-10 tablet by ity of mEq CR 00:00: mouth [place] tablet 00 every Medical Saturday, Branch Saturday and Saturday. potassium 2022- No [id number] 10meq Take 1 [facility] chloride 10 5-10 07-14 tablet by it y of mEq CR 00:00: 00:00 mouth [place] tablet 00 :00 every Medical Saturday, Branch Saturday and Saturday. potassium 0 2022- No [id number] 10meq Take 1 [facility] chloride 10 5-10 07-14 tablet by it y of mEq CR 00:00: 00:00 mouth [place] tablet 00 :00 every Medical Saturday, Branch Saturday and Saturday. potassium 2022-0 2022- No [id number] 10meq Take 1 [facility] chloride 10 5-10 07-14 tablet by it y of mEq CR 00:00: 00:00 mouth [place] tablet 00 :00 every Medical Saturday, Branch Saturday and Saturday. potassium 0 2022- No [id number] 10meq Take 1 [facility] chloride 10 5-10 07-14 tablet by it y of mEq CR 00:00: 00:00 mouth [place] tablet 00 :00 every Medical Saturday, Branch Saturday and Saturday. gabapentin 2022-0 Yes [id number] 600mg Take 1 [facility] 600 mg 5-09 tablet by ity of tablet 00:00: mouth in [place] the Medical morning Branch and 1 tablet at noon and 1 tablet in the evening. buPROPion 2022-0 Yes [id number] 150mg Take 1 [facility] SR 150 mg 5-09 tablet by ity o f SR tablet 00:00: mouth in [facility] the Medical morning Branch and 1 tablet in the evening. diclofenac- 2022-0 Yes [id number] 1{tbl} Take 1 [facility] misoprostoL 5-09 tablet by ity of 50-200 00:00: mouth once [place] mg-mcg per 00 daily as Medic al tablet needed Branch (Chronic Pain - Arthritis, multiple joint involvemen t). DULoxetine 2022-0 Yes [id number] 60mg Take 1 [facility] 60 mg 5-09 capsule by ity of capsule 00:00: mouth in [place] [address] the Medical morning Branch and 1 capsule in the evening. furosemide 2022-0 Yes [id number] Take lasix [facility] (LASIX) 40 5-09 40 mg BID ity of mg tablet 00:00: [place] [address] Medical Branch pioglitazon 2022-0 Yes [id number] 15mg Take 1 [facility] e 15 mg 5-09 tablet by ity of tablet 00:00: mouth in [place] the Medical morning. Branch metFORMIN 2022-0 Yes [id number] TAKE 1 U nivers 500 mg 5-09 TABLET BY ity of tablet 00:00: MOUTH IN [place] THE Medical MORNING Branch AND IN THE EVENING WITH MEALS glimepiride 2022-0 Yes [id number] 4mg Take 1 [facility] 4 mg tablet 5-09 tablet by ity of 00:00: mouth [place] 00 daily with Medical breakfast. Branch gabapentin 2022-0 Yes [id number] 600mg Take 1 [facility] 600 mg 5-09 tablet by ity of tablet 00:00: mouth in [place] [address] the Medical morning Branch and 1 tablet at noon and 1 tablet in the evening. buPROPion 2022-0 Yes [id number] 150mg Take 1 [facility] SR 150 mg 5-09 tablet by ity o f SR tablet 00:00: mouth in [place] [facility] 00 the Medical morning Branch and 1 tablet in the evening. diclofenac- 2022-0 Yes [id number] 1{tbl} Take 1 [facility] misoprostoL 5-09 tablet by ity of 50-200 00:00: mouth once [place] mg-mcg per 00 daily as Medic al tablet needed Branch (Chronic Pain - Arthritis, multiple joint involvemen t). DULoxetine 2022-0 Yes 60mg Take 1 [facility] 60 mg 5-09 capsule by ity of capsule 00:00: mouth in [place] 00 the Medical morning Branch and 1 capsule in the evening. furosemide 2022-0 Yes [id number] Take lasix [facility] (LASIX) 40 5-09 40 mg BID ity of mg tablet 00:00: [place] 00 Medical Branch pioglitazon 2022-0 Yes [id number] 15mg Take 1 [facility] e 15 mg 5-09 tablet by ity of tablet 00:00: mouth in [place] 00 the Medical morning. Branch metFORMIN 2022-0 Yes [id number] TAKE 1 U nivers 500 mg 5-09 TABLET BY ity of tablet 00:00: MOUTH IN [place] 00 THE Medical MORNING Branch AND IN THE EVENING WITH MEALS glimepiride 2022-0 Yes [id number] 4mg Take 1 [facility] 4 mg tablet 5-09 tablet by ity of 00:00: mouth [place] 00 daily with Medical breakfast. Branch gabapentin Yes [id number] 600mg Take 1 [facility] 600 mg 5-09 tablet by ity of tablet 00:00: mouth in [place] [address] the Medical morning Branch and 1 tablet at noon and 1 tablet in the evening. buPROPion Yes [id number] 150mg Take 1 [facility] SR 150 mg 5-09 tablet by ity o f SR tablet 00:00: mouth in [place] [address] the Medical morning Branch and 1 tablet in the evening. diclofenac- 2022- Yes [id number] 1{tbl} Take 1 [facility] misoprostoL 5-09 tablet by ity of 50-200 00:00: mouth once [place] mg-mcg per 00 daily as Medic al tablet needed Branch (Chronic Pain - Arthritis, multiple joint involvemen t). DULoxetine 2022-0 Yes [id number] 60mg Take 1 [facility] 60 mg 5-09 capsule by ity of capsule 00:00: mouth in [place] [address] the Medical morning Branch and 1 capsule in the evening. furosemide 2022-0 Yes [id number] Take lasix [facility] (LASIX) 40 5-09 40 mg BID ity of mg tablet 00:00: [place] 00 Medical Branch pioglitazon 2022-0 Yes [id number] 15mg Take 1 [facility] e 15 mg 5-09 tablet by ity of tablet 00:00: mouth in [place] 00 the Medical morning. Branch metFORMIN 2022-0 Yes [id number] TAKE 1 U nivers 500 mg 5-09 TABLET BY ity of tablet 00:00: MOUTH IN [place] 00 THE Medical MORNING Branch AND IN THE EVENING WITH MEALS glimepiride 2022-0 Yes [id number] 4mg Take 1 [facility] 4 mg tablet 5-09 tablet by ity of 00:00: mouth [place] 00 daily with Medical breakfast. Branch gabapentin Yes [id number] 600mg Take 1 [facility] 600 mg 5-09 tablet by ity of tablet 00:00: mouth in [place] 00 the Medical morning Branch and 1 tablet at noon and 1 tablet in the evening. buPROPion 0 Yes [id number] 150mg Take 1 [facility] SR 150 mg 5-09 tablet by ity o f SR tablet 00:00: mouth in [place] [facility] 00 the Medical morning Branch and 1 tablet in the evening. diclofenac- Yes [id number] 1{tbl} Take 1 [facility] misoprostoL 5-09 tablet by ity of 50-200 00:00: mouth once [place] mg-mcg per 00 daily as Medic al tablet needed Branch (Chronic Pain - Arthritis, multiple joint involvemen t). DULoxetine Yes [id number] 60mg Take 1 [facility] 60 mg 5-09 capsule by ity of capsule 00:00: mouth in [place] 00 the Medical morning Branch and 1 capsule in the evening. furosemide Yes [id number] Take lasix [facility] (LASIX) 40 5-09 40 mg BID ity of mg tablet 00:00: [place] 00 Medical Branch pioglitazon 2022-0 Yes [id number] 15mg Take 1 [facility] e 15 mg 5-09 tablet by ity of tablet 00:00: mouth in [place] 00 the Medical morning. Branch metFORMIN 2022-0 Yes [id number] TAKE 1 U nivers 500 mg 5-09 TABLET BY ity of tablet 00:00: MOUTH IN [place] 00 THE Medical MORNING Branch AND IN THE EVENING WITH MEALS glimepiride 2022-0 Yes [id number] 4mg Take 1 [facility] 4 mg tablet 5-09 tablet by ity of 00:00: mouth [place] 00 daily with Medical breakfast. Branch gabapentin 2022-0 Yes [id number] 600mg Take 1 [facility] 600 mg 5-09 tablet by ity of tablet 00:00: mouth in [place] 00 the Medical morning Branch and 1 tablet at noon and 1 tablet in the evening. buPROPion 2022-0 Yes [id number] 150mg Take 1 [facility] SR 150 mg 5-09 tablet by ity o f SR tablet 00:00: mouth in [place] [facility] 00 the Medical morning Branch and 1 tablet in the evening. diclofenac- 2022-0 Yes [id number] 1{tbl} Take 1 [facility] misoprostoL 5-09 tablet by ity of 50-200 00:00: mouth once [place] mg-mcg per 00 daily as Medic al tablet needed Branch (Chronic Pain - Arthritis, multiple joint involvemen t). DULoxetine 2022-0 Yes [id number] 60mg Take 1 [facility] 60 mg 5-09 capsule by ity of capsule 00:00: mouth in [place] 00 the Medical morning Branch and 1 capsule in the evening. furosemide 2022-0 Yes [id number] Take lasix [facility] (LASIX) 40 5-09 40 mg BID ity of mg tablet 00:00: [place] 00 [facility] pioglitazon 2022-0 Yes [id number] 15mg Take 1 [facility] e 15 mg 5-09 tablet by ity of tablet 00:00: mouth in [place] 00 the Medical morning. Branch metFORMIN 2022-0 Yes [id number] TAKE 1 U nivers 500 mg 5-09 TABLET BY ity of tablet 00:00: MOUTH IN [place] 00 THE Medical MORNING Branch AND IN THE EVENING WITH MEALS glimepiride 2022-0 Yes [id number] 4mg Take 1 [facility] 4 mg tablet 5-09 tablet by ity of 00:00: mouth [place] 00 daily with Medical breakfast. Branch gabapentin 2022- Yes [id number] 600mg Take 1 [facility] 600 mg 5-09 tablet by ity of tablet 00:00: mouth in [place] 00 the Medical morning Branch and 1 tablet at noon and 1 tablet in the evening. buPROPion 2022-0 Yes [id number] 150mg Take 1 [facility] SR 150 mg 5-09 tablet by ity o f SR tablet 00:00: [facility] Branch and 1 tablet in the evening. diclofenac- 2022-0 Yes [id number] 1{tbl} Take 1 [facility] misoprostoL 5-09 tablet by ity of 50-200 00:00: mouth once [place] mg-mcg per 00 daily as Medic al tablet needed Branch (Chronic Pain - Arthritis, multiple joint involvemen t). DULoxetine 2022-0 Yes 60mg Take 1 [facility] 60 mg 5-09 capsule by ity of capsule 00:00: mouth in [place] 00 the Medical morning Branch and 1 capsule in the evening. furosemide 2022-0 Yes [id number] Take lasix [facility] (LASIX) 40 5-09 40 mg BID ity of mg tablet 00:00: [address] pioglitazon 2022-0 Yes [id number] 15mg Take 1 [facility] e 15 mg 5-09 tablet by ity of tablet 00:00: mouth in [place] [address] the Medical morning. Branch metFORMIN 2022-0 Yes [id number] TAKE 1 U nivers 500 mg 5-09 TABLET BY ity of tablet 00:00: MOUTH IN [place] 00 THE Medical MORNING Branch AND IN THE EVENING WITH MEALS glimepiride 2022-0 Yes [id number] 4mg Take 1 [facility] 4 mg tablet 5-09 tablet by ity of 00:00: mouth [place] 00 daily with Medical breakfast. Branch gabapentin 2022-0 Yes [id number] 600mg Take 1 [facility] 600 mg 5-09 tablet by ity of tablet 00:00: mouth in [place] 00 the Medical morning Branch and 1 tablet at noon and 1 tablet in the evening. buPROPion 2022-0 Yes [id number] 150mg Take 1 [facility] SR 150 mg 5-09 tablet by ity o f SR tablet 00:00: mouth in [place] [facility] 00 the Medical morning Branch and 1 tablet in the evening. diclofenac- 2022- Yes [id number] 1{tbl} Take 1 [facility] misoprostoL 5-09 tablet by ity of 50-200 00:00: mouth once [place] mg-mcg per 00 daily as Medic al tablet needed Branch (Chronic Pain - Arthritis, multiple joint involvemen t). DULoxetine 2022-0 Yes 60mg Take 1 [facility] 60 mg 5-09 capsule by ity of capsule 00:00: mouth in [place] 00 the Medical morning Branch and 1 capsule in the evening. furosemide 2022- Yes [id number] Take lasix [facility] (LASIX) 40 5-09 40 mg BID ity of mg tablet 00:00: [place] 00 Medical Branch pioglitazon 2022-0 Yes [id number] 15mg Take 1 [facility] e 15 mg 5-09 tablet by ity of tablet 00:00: mouth in [place] 00 the Medical morning. Branch metFORMIN 2022-0 Yes [id number] TAKE 1 U nivers 500 mg 5-09 TABLET BY ity of tablet 00:00: MOUTH IN [place] 00 THE Medical MORNING Branch AND IN THE EVENING WITH MEALS glimepiride 2022-0 Yes [id number] 4mg Take 1 [facility] 4 mg tablet 5-09 tablet by ity of 00:00: mouth [place] 00 daily with Medical breakfast. Branch gabapentin 2022-0 Yes [id number] 600mg Take 1 [facility] 600 mg 5-09 tablet by ity of tablet 00:00: mouth in [place] 00 the Medical morning Branch and 1 tablet at noon and 1 tablet in the evening. buPROPion Yes [id number] 150mg Take 1 [facility] SR 150 mg 5-09 tablet by ity o f SR tablet 00:00: mouth in [place] [facility] 00 the Medical morning Branch and 1 tablet in the evening. diclofenac- Yes [id number] 1{tbl} Take 1 [facility] misoprostoL 5-09 tablet by ity of 50-200 00:00: mouth once [place] mg-mcg per 00 daily as Medic al tablet needed Branch (Chronic Pain - Arthritis, multiple joint involvemen t). DULoxetine Yes [id number] 60mg Take 1 [facility] 60 mg 5-09 capsule by ity of capsule 00:00: mouth in [place] 00 the Medical morning Branch and 1 capsule in the evening. furosemide 2022-0 Yes [id number] Take lasix [facility] (LASIX) 40 5-09 40 mg BID ity of mg tablet 00:00: [place] 00 Medical Branch pioglitazon 2022-0 Yes [id number] 15mg Take 1 [facility] e 15 mg 5-09 tablet by ity of tablet 00:00: mouth in [place] 00 the Medical morning. Branch metFORMIN 2022-0 Yes [id number] TAKE 1 U nivers 500 mg 5-09 TABLET BY ity of tablet 00:00: MOUTH IN [place] 00 THE Medical MORNING Branch AND IN THE EVENING WITH MEALS glimepiride 2022-0 Yes [id number] 4mg Take 1 [facility] 4 mg tablet 5-09 tablet by ity of 00:00: mouth [place] 00 daily with Medical breakfast. Branch gabapentin 2022-0 Yes [id number] 600mg Take 1 [facility] 600 mg 5-09 tablet by ity of tablet 00:00: mouth in [place] 00 the Medical morning Branch and 1 tablet at noon and 1 tablet in the evening. buPROPion 2022-0 Yes [id number] 150mg Take 1 [facility] SR 150 mg 5-09 tablet by ity o f SR tablet 00:00: mouth in [place] [facility] 00 the Medical morning Branch and 1 tablet in the evening. diclofenac- 2022-0 Yes [id number] 1{tbl} Take 1 [facility] misoprostoL 5-09 tablet by ity of 50-200 00:00: mouth once [place] mg-mcg per 00 daily as Medic al tablet needed Branch (Chronic Pain - Arthritis, multiple joint involvemen t). DULoxetine 2022-0 Yes [id number] 60mg Take 1 [facility] 60 mg 5-09 capsule by ity of capsule 00:00: mouth in [place] [address] the Medical morning Branch and 1 capsule in the evening. furosemide 2022-0 Yes [id number] Take lasix [facility] (LASIX) 40 5-09 40 mg BID ity of mg tablet 00:00: [place] 00 Medical Branch pioglitazon 2022-0 Yes [id number] 15mg Take 1 [facility] e 15 mg 5-09 tablet by ity of tablet 00:00: mouth in [place] 00 the Medical morning. Branch metFORMIN 2022-0 Yes [id number] TAKE 1 U nivers 500 mg 5-09 TABLET BY ity of tablet 00:00: MOUTH IN [place] 00 THE Medical MORNING Branch AND IN THE EVENING WITH MEALS glimepiride 2022-0 Yes [id number] 4mg Take 1 [facility] 4 mg tablet 5-09 tablet by ity of 00:00: mouth [place] 00 daily with Medical breakfast. Branch gabapentin 2022-0 Yes [id number] 600mg Take 1 [facility] 600 mg 5-09 tablet by ity of tablet 00:00: mouth in [place] 00 the Medical morning Branch and 1 tablet at noon and 1 tablet in the evening. buPROPion 2023-0 Yes [id number] 150mg Take 1 [facility] SR 150 mg 5-09 tablet by ity o f SR tablet 00:00[facility] Branch and 1 tablet in the evening. diclofenac- Yes [id number] 1{tbl} Take 1 [facility] misoprostoL 5-09 tablet by ity of 50-200 00:00: mouth once [place] mg-mcg per 00 daily as Medic al tablet needed Branch (Chronic Pain - Arthritis, multiple joint involvemen t). DULoxetine 0 Yes [id number] 60mg Take 1 [facility] 60 mg 5-09 capsule by ity of capsule 00:00: mouth in [place] 00 the Medical morning Branch and 1 capsule in the evening. furosemide Yes [id number] Take lasix [facility] (LASIX) 40 5-09 40 mg BID ity of mg tablet 00:00: [place] 00 Medical Branch pioglitazon 0 Yes [id number] 15mg Take 1 [facility] e 15 mg 5-09 tablet by ity of tablet 00:00: mouth in [place] 00 the Medical morning. Branch metFORMIN 0 Yes [id number] TAKE 1 U nivers 500 mg 5-09 TABLET BY ity of tablet 00:00: MOUTH IN [place] 00 THE Medical MORNING Branch AND IN THE EVENING WITH MEALS glimepiride 0 Yes [id number] 4mg Take 1 [facility] 4 mg tablet 5-09 tablet by ity of 00:00: mouth [place] 00 daily with Medical breakfast. Branch gabapentin 0 Yes [id number] 600mg Take 1 [facility] 600 mg 5-09 tablet by ity of tablet 00:00: mouth in [place] 00 the Medical morning Branch and 1 tablet at noon and 1 tablet in the evening. buPROPion Yes [id number] 150mg Take 1 [facility] SR 150 mg 5-09 tablet by ity o f SR tablet 00:00: mouth in [facility] 00 the Medical morning Branch and 1 tablet in the evening. diclofenac- Yes [id number] 1{tbl} Take 1 [facility] misoprostoL 5-09 tablet by ity of 50-200 00:00: mouth once [place] mg-mcg per 00 daily as Medic al tablet needed Branch (Chronic Pain - Arthritis, multiple joint involvemen t). DULoxetine 2022-0 Yes 60mg Take 1 [facility] 60 mg 5-09 capsule by ity of capsule 00:00: mouth in [place] 00 the Medical morning Branch and 1 capsule in the evening. furosemide Yes [id number] Take lasix [facility] (LASIX) 40 5-09 40 mg BID ity of mg tablet 00:00: [place] 00 Medical Branch pioglitazon 2022-0 Yes [id number] 15mg Take 1 [facility] e 15 mg 5-09 tablet by ity of tablet 00:00: mouth in [place] 00 the Medical morning. Branch metFORMIN 2022- Yes [id number] TAKE 1 U nivers 500 mg 5-09 TABLET BY ity of tablet 00:00: MOUTH IN [place] 00 THE Medical MORNING Branch AND IN THE EVENING WITH MEALS glimepiride 2022- Yes [id number] 4mg Take 1 [facility] 4 mg tablet 5-09 tablet by ity of 00:00: mouth [place] 00 daily with Medical breakfast. Branch gabapentin Yes 600mg Take 1 [facility] 600 mg 5-09 tablet by ity of tablet 00:00: mouth in [place] 00 the Medical morning Branch and 1 tablet at noon and 1 tablet in the evening. buPROPion Yes [id number] 150mg Take 1 [facility] SR 150 mg 5-09 tablet by ity o f SR tablet 00:00: mouth in [place] [facility] 00 the Medical morning Branch and 1 tablet in the evening. diclofenac- Yes [id number] 1{tbl} Take 1 [facility] misoprostoL 5-09 tablet by ity of 50-200 00:00: mouth once [place] mg-mcg per 00 daily as Medic al tablet needed Branch (Chronic Pain - Arthritis, multiple joint involvemen t). DULoxetine Yes [id number] 60mg Take 1 [facility] 60 mg 5-09 capsule by ity of capsule 00:00: mouth in [place] 00 the Medical morning Branch and 1 capsule in the evening. furosemide Yes [id number] Take lasix [facility] (LASIX) 40 5-09 40 mg BID ity of mg tablet 00:00: [place] 00 Medical Branch pioglitazon 2022-0 Yes [id number] 15mg Take 1 [facility] e 15 mg 5-09 tablet by ity of tablet 00:00: mouth in [place] 00 the Medical morning. Branch metFORMIN 2022-0 Yes [id number] TAKE 1 U nivers 500 mg 5-09 TABLET BY ity of tablet 00:00: MOUTH IN [place] 00 THE Medical MORNING Branch AND IN THE EVENING WITH MEALS glimepiride 2022-0 Yes [id number] 4mg Take 1 [facility] 4 mg tablet 5-09 tablet by ity of 00:00: mouth [place] 00 daily with Medical breakfast. Branch gabapentin 2022-0 Yes [id number] 600mg Take 1 [facility] 600 mg 5-09 tablet by ity of tablet 00:00: mouth in [place] 00 the Medical morning Branch and 1 tablet at noon and 1 tablet in the evening. buPROPion 2022-0 Yes [id number] 150mg Take 1 [facility] SR 150 mg 5-09 tablet by ity o f SR tablet 00:00: mouth in [facility] 00 the Medical morning Branch and 1 tablet in the evening. diclofenac- 2022-0 Yes [id number] 1{tbl} Take 1 [facility] misoprostoL 5-09 tablet by ity of 50-200 00:00: mouth once [place] mg-mcg per 00 daily as Medic al tablet needed Branch (Chronic Pain - Arthritis, multiple joint involvemen t). DULoxetine 2022-0 Yes [id number] 60mg Take 1 [facility] 60 mg 5-09 capsule by ity of capsule 00:00: mouth in [place] 00 the Medical morning Branch and 1 capsule in the evening. furosemide 2022-0 Yes [id number] Take lasix [facility] (LASIX) 40 5-09 40 mg BID ity of mg tablet 00:00: [place] 00 Medical Branch pioglitazon 2022-0 Yes [id number] 15mg Take 1 [facility] e 15 mg 5-09 tablet by ity of tablet 00:00: mouth in [place] 00 the Medical morning. Branch metFORMIN 2022-0 Yes [id number] TAKE 1 U nivers 500 mg 5-09 TABLET BY ity of tablet 00:00: MOUTH IN [place] 00 THE Medical MORNING Branch AND IN THE EVENING WITH MEALS glimepiride 2022-0 Yes [id number] 4mg Take 1 [facility] 4 mg tablet 5-09 tablet by ity of 00:00: mouth [place] 00 daily with Medical breakfast. Branch gabapentin 2022-0 Yes [id number] 600mg Take 1 [facility] 600 mg 5-09 tablet by ity of tablet 00:00: mouth in [place] 00 the Medical morning Branch and 1 tablet at noon and 1 tablet in the evening. buPROPion 2022-0 Yes [id number] 150mg Take 1 [facility] SR 150 mg 5-09 tablet by ity o f SR tablet 00:00: mouth in [facility] the Medical morning Branch and 1 tablet in the evening. diclofenac- 2022-0 Yes [id number] 1{tbl} Take 1 [facility] misoprostoL 5-09 tablet by ity of 50-200 00:00: mouth once [place] mg-mcg per 00 daily as Medic al tablet needed Branch (Chronic Pain - Arthritis, multiple joint involvemen t). DULoxetine 2022-0 Yes [id number] 60mg Take 1 [facility] 60 mg 5-09 capsule by ity of capsule 00:00: mouth in [place] the Medical morning Branch and 1 capsule in the evening. furosemide 2022-0 Yes [id number] Take lasix [facility] (LASIX) 40 5-09 40 mg BID ity of mg tablet 00:00: [place] [facility] pioglitazon 2022-0 Yes [id number] 15mg Take 1 [facility] e 15 mg 5-09 tablet by ity of tablet 00:00: mouth in [place] the Medical morning. Branch metFORMIN 2022-0 Yes [id number] TAKE 1 U nivers 500 mg 5-09 TABLET BY ity of tablet 00:00: MOUTH IN [place] THE Medical MORNING Branch AND IN THE EVENING WITH MEALS glimepiride 2022-0 Yes [id number] 4mg Take 1 [facility] 4 mg tablet 5-09 tablet by ity of 00:00: mouth daily with Medical breakfast. Branch gabapentin 2022-0 Yes [id number] 600mg Take 1 [facility] 600 mg 5-09 tablet by ity of tablet 00:00: mouth in [place] the Medical morning Branch and 1 tablet at noon and 1 tablet in the evening. buPROPion 2022-0 Yes [id number] 150mg Take 1 [facility] SR 150 mg 5-09 tablet by ity o f SR tablet 00:00: mouth in [place] [facility] the Medical morning Branch and 1 tablet in the evening. diclofenac- 2022-0 Yes [id number] 1{tbl} Take 1 [facility] misoprostoL 5-09 tablet by ity of 50-200 00:00: mouth once [place] mg-mcg per 00 daily as Medic al tablet needed Branch (Chronic Pain - Arthritis, multiple joint involvemen t). DULoxetine Yes 60mg Take 1 [facility] 60 mg 5-09 capsule by ity of capsule 00:00: mouth in [place] 00 the Medical morning Branch and 1 capsule in the evening. furosemide Yes [id number] Take lasix [facility] (LASIX) 40 5-09 40 mg BID ity of mg tablet 00:00: [place] 00 Medical Branch pioglitazon Yes [id number] 15mg Take 1 [facility] e 15 mg 5-09 tablet by ity of tablet 00:00: mouth in [place] 00 the Medical morning. Branch metFORMIN Yes [id number] TAKE 1 [facility] nivers 500 mg 5-09 TABLET BY ity of tablet 00:00: MOUTH IN [place] 00 THE Medical MORNING Branch AND IN THE EVENING WITH MEALS glimepiride Yes [id number] 4mg Take 1 [facility] 4 mg tablet 5-09 tablet by ity of 00:00: mouth [place] 00 daily with Medical breakfast. Branch gabapentin Yes 600mg Take 1 [facility] 600 mg 5-09 tablet by ity of tablet 00:00: mouth in [place] [address] the Medical morning Branch and 1 tablet at noon and 1 tablet in the evening. buPROPion Yes [id number] 150mg Take 1 [facility] SR 150 mg 5-09 tablet by ity o f SR tablet 00:00: mouth in [place] [address] the Medical morning Branch and 1 tablet in the evening. diclofenac- Yes [id number] 1{tbl} Take 1 [facility] misoprostoL 5-09 tablet by ity of 50-200 00:00: mouth once [place] mg-mcg per 00 daily as Medic al tablet needed Branch (Chronic Pain - Arthritis, multiple joint involvemen t). DULoxetine Yes 60mg Take 1 [facility] 60 mg 5-09 capsule by ity of capsule 00:00: mouth in [place] [address] the Medical morning Branch and 1 capsule in the evening. furosemide Yes [id number] Take lasix [facility] (LASIX) 40 5-09 40 mg BID ity of mg tablet 00:00: [place] 00 Medical Branch pioglitazon Yes [id number] 15mg Take 1 [facility] e 15 mg 5-09 tablet by ity of tablet 00:00: mouth in [place] 00 the Medical morning. Branch metFORMIN 2022-0 Yes [id number] TAKE 1 U nivers 500 mg 5-09 TABLET BY ity of tablet 00:00: MOUTH IN [place] 00 THE Medical MORNING Branch AND IN THE EVENING WITH MEALS glimepiride 2022-0 Yes [id number] 4mg Take 1 [facility] 4 mg tablet 5-09 tablet by ity of 00:00: mouth [place] 00 daily with Medical breakfast. Branch gabapentin 2022-0 Yes [id number] 600mg Take 1 [facility] 600 mg 5-09 tablet by ity of tablet 00:00: mouth in [place] 00 the Medical morning Branch and 1 tablet at noon and 1 tablet in the evening. buPROPion 2022-0 Yes [id number] 150mg Take 1 [facility] SR 150 mg 5-09 tablet by ity o f SR tablet 00:00: mouth in [place] [facility] 00 the Medical morning Branch and 1 tablet in the evening. diclofenac- 0 Yes [id number] 1{tbl} Take 1 [facility] misoprostoL 5-09 tablet by ity of 50-200 00:00: mouth once [place] mg-mcg per 00 daily as Medic al tablet needed Branch (Chronic Pain - Arthritis, multiple joint involvemen t). DULoxetine Yes [id number] 60mg Take 1 [facility] 60 mg 5-09 capsule by ity of capsule 00:00: mouth in [place] 00 the Medical morning Branch and 1 capsule in the evening. furosemide 2022-0 Yes [id number] Take lasix [facility] (LASIX) 40 5-09 40 mg BID ity of mg tablet 00:00: [place] 00 Medical Branch pioglitazon 2022-0 Yes [id number] 15mg Take 1 [facility] e 15 mg 5-09 tablet by ity of tablet 00:00: mouth in [place] 00 the Medical morning. Branch metFORMIN 2022-0 Yes [id number] TAKE 1 U nivers 500 mg 5-09 TABLET BY ity of tablet 00:00: MOUTH IN [place] 00 THE Medical MORNING Branch AND IN THE EVENING WITH MEALS glimepiride 2022-0 Yes [id number] 4mg Take 1 [facility] 4 mg tablet 5-09 tablet by ity of 00:00: mouth [place] 00 daily with Medical breakfast. Branch gabapentin 2022-0 Yes [id number] 600mg Take 1 [facility] 600 mg 5-09 tablet by ity of tablet 00:00: mouth in 00 the Medical morning Branch and 1 tablet at noon and 1 tablet in the evening. buPROPion 2022-0 Yes [id number] 150mg Take 1 [facility] SR 150 mg 5-09 tablet by ity o f SR tablet 00:00: mouth in [facility] s the Medical morning Branch and 1 tablet in the evening. diclofenac- 2022-0 Yes [id number] 1{tbl} Take 1 [facility] misoprostoL 5-09 tablet by ity of 50-200 00:00: mouth once [place] mg-mcg per 00 daily as Medic al tablet needed Branch (Chronic Pain - Arthritis, multiple joint involvemen t). DULoxetine 2022-0 Yes [id number] 60mg Take 1 [facility] 60 mg 5-09 capsule by ity of capsule 00:00: mouth in [place] the Medical morning Branch and 1 capsule in the evening. furosemide 2022-0 Yes [id number] Take lasix [facility] (LASIX) 40 5-09 40 mg BID ity of mg tablet 00:00: [place] 00 Medical Branch pioglitazon 2022-0 Yes [id number] 15mg Take 1 [facility] e 15 mg 5-09 tablet by ity of tablet 00:00: mouth in [place] the Medical morning. Branch metFORMIN 2022-0 Yes [id number] TAKE 1 U nivers 500 mg 5-09 TABLET BY ity of tablet 00:00: MOUTH IN [place] 00 THE Medical MORNING Branch AND IN THE EVENING WITH MEALS glimepiride 2022-0 Yes [id number] 4mg Take 1 [facility] 4 mg tablet 5-09 tablet by ity of 00:00: mouth 00 daily with Medical breakfast. Branch gabapentin 2022-0 Yes [id number] 600mg Take 1 [facility] 600 mg 5-09 tablet by ity of tablet 00:00: mouth in [place] 00 the Medical morning Branch and 1 tablet at noon and 1 tablet in the evening. buPROPion 2022-0 Yes [id number] 150mg Take 1 [facility] SR 150 mg 5-09 tablet by ity o f SR tablet 00:00: mouth in [facility] s 00 the Medical morning Branch and 1 tablet in the evening. diclofenac- 2022-0 Yes [id number] 1{tbl} Take 1 [facility] misoprostoL 5-09 tablet by ity of 50-200 00:00: mouth once [place] mg-mcg per 00 daily as Medic al tablet needed Branch (Chronic Pain - Arthritis, multiple joint involvemen t). DULoxetine Yes 60mg Take 1 [facility] 60 mg 5-09 capsule by ity of capsule 00:00: mouth in [place] 00 the Medical morning Branch and 1 capsule in the evening. furosemide Yes [id number] Take lasix [facility] (LASIX) 40 5-09 40 mg BID ity of mg tablet 00:00: [place] 00 Medical Branch pioglitazon 2022-0 Yes [id number] 15mg Take 1 [facility] e 15 mg 5-09 tablet by ity of tablet 00:00: mouth in [place] [address] the Medical morning. Branch metFORMIN 2022-0 Yes [id number] TAKE 1 U nivers 500 mg 5-09 TABLET BY ity of tablet 00:00: MOUTH IN [place] 00 THE Medical MORNING Branch AND IN THE EVENING WITH MEALS glimepiride 0 Yes [id number] 4mg Take 1 [facility] 4 mg tablet 5-09 tablet by ity of 00:00: mouth [place] [address] daily with Medical breakfast. Branch gabapentin Yes [id number] 600mg Take 1 [facility] 600 mg 5-09 tablet by ity of tablet 00:00: mouth in [place] [address] the Medical morning Branch and 1 tablet at noon and 1 tablet in the evening. buPROPion Yes [id number] 150mg Take 1 [facility] SR 150 mg 5-09 tablet by ity o f SR tablet 00:00: mouth in [place] [address] the Medical morning Branch and 1 tablet in the evening. diclofenac- 2022- Yes [id number] 1{tbl} Take 1 [facility] misoprostoL 5-09 tablet by ity of 50-200 00:00: mouth once [place] mg-mcg per 00 daily as Medic al tablet needed Branch (Chronic Pain - Arthritis, multiple joint involvemen t). DULoxetine 2022- Yes 60mg Take 1 [facility] 60 mg 5-09 capsule by ity of capsule 00:00: mouth in [place] [address] the Medical morning Branch and 1 capsule in the evening. furosemide 2022- Yes [id number] Take lasix [facility] (LASIX) 40 5-09 40 mg BID ity of mg tablet 00:00: [place] [address] Medical Branch pioglitazon 2022-0 Yes [id number] 15mg Take 1 [facility] e 15 mg 5-09 tablet by ity of tablet 00:00: mouth in [place] 00 the Medical morning. Branch metFORMIN 2022-0 Yes [id number] TAKE 1 U nivers 500 mg 5-09 TABLET BY ity of tablet 00:00: MOUTH IN [place] 00 THE Medical MORNING Branch AND IN THE EVENING WITH MEALS glimepiride 2022-0 Yes [id number] 4mg Take 1 [facility] 4 mg tablet 5-09 tablet by ity of 00:00: mouth [place] 00 daily with Medical breakfast. Branch gabapentin 2022-0 Yes [id number] 600mg Take 1 [facility] 600 mg 5-09 tablet by ity of tablet 00:00: mouth in [place] 00 the Medical morning Branch and 1 tablet at noon and 1 tablet in the evening. buPROPion 2022-0 Yes [id number] 150mg Take 1 [facility] SR 150 mg 5-09 tablet by ity o f SR tablet 00:00: mouth in [facility] 00 the Medical morning Branch and 1 tablet in the evening. furosemide 2022-0 Yes [id number] Take lasix [facility] (LASIX) 40 5-09 40 mg BID ity of mg tablet 00:00: [place] 00 Medical Branch pioglitazon 2022-0 Yes [id number] 15mg Take 1 [facility] e 15 mg 5-09 tablet by ity of tablet 00:00: mouth in [place] 00 the Medical morning. Branch metFORMIN 2022-0 Yes [id number] TAKE 1 U nivers 500 mg 5-09 TABLET BY ity of tablet 00:00: MOUTH IN [place] 00 THE Medical MORNING Branch AND IN THE EVENING WITH MEALS glimepiride 2022-0 Yes [id number] 4mg Take 1 [facility] 4 mg tablet 5-09 tablet by ity of 00:00: mouth [place] 00 daily with Medical breakfast. Branch gabapentin 2022-0 Yes [id number] 600mg Take 1 [facility] 600 mg 5-09 tablet by ity of tablet 00:00: mouth in [place] 00 the Medical morning Branch and 1 tablet at noon and 1 tablet in the evening. buPROPion 2022-0 Yes [id number] 150mg Take 1 [facility] SR 150 mg 5-09 tablet by ity o f SR tablet 00:00: mouth in [place] [facility] 00 the Medical morning Branch and 1 tablet in the evening. furosemide 2022-0 Yes [id number] Take lasix [facility] (LASIX) 40 5-09 40 mg BID ity of mg tablet 00:00: [place] 00 Medical Branch pioglitazon 2022-0 Yes [id number] 15mg Take 1 [facility] e 15 mg 5-09 tablet by ity of tablet 00:00: mouth in [place] 00 the Medical morning. Branch metFORMIN 2022-0 Yes [id number] TAKE 1 U nivers 500 mg 5-09 TABLET BY ity of tablet 00:00: MOUTH IN [place] 00 THE Medical MORNING Branch AND IN THE EVENING WITH MEALS glimepiride 2022-0 Yes [id number] 4mg Take 1 [facility] 4 mg tablet 5-09 tablet by ity of 00:00: mouth [place] 00 daily with Medical breakfast. Branch gabapentin 2022-0 Yes [id number] 600mg Take 1 [facility] 600 mg 5-09 tablet by ity of tablet 00:00: mouth in [place] 00 the Medical morning Branch and 1 tablet at noon and 1 tablet in the evening. buPROPion 2022-0 Yes [id number] 150mg Take 1 [facility] SR 150 mg 5-09 tablet by ity o f SR tablet 00:00: mouth in [place] [facility] 00 the Medical morning Branch and 1 tablet in the evening. furosemide 2022-0 Yes [id number] Take lasix [facility] (LASIX) 40 5-09 40 mg BID ity of mg tablet 00:00: [place] 00 Medical Branch pioglitazon 2022-0 Yes [id number] 15mg Take 1 [facility] e 15 mg 5-09 tablet by ity of tablet 00:00: mouth in [place] 00 the Medical morning. Branch metFORMIN 2022-0 Yes [id number] TAKE 1 U nivers 500 mg 5-09 TABLET BY ity of tablet 00:00: MOUTH IN [place] 00 THE Medical MORNING Branch AND IN THE EVENING WITH MEALS glimepiride 2022-0 Yes [id number] 4mg Take 1 [facility] 4 mg tablet 5-09 tablet by ity of 00:00: mouth [place] 00 daily with Medical breakfast. Branch gabapentin 2022-0 Yes [id number] 600mg Take 1 [facility] 600 mg 5-09 tablet by ity of tablet 00:00: mouth in [place] 00 the Medical morning Branch and 1 tablet at noon and 1 tablet in the evening. buPROPion 2022-0 Yes [id number] 150mg Take 1 [facility] SR 150 mg 5-09 tablet by ity o f SR tablet 00:00: mouth [place] 00 the Medical morning Branch and 1 tablet in the evening. furosemide 2022-0 Yes [id number] Take lasix [facility] (LASIX) 40 5-09 40 mg BID ity of mg tablet 00:00: [place] 00 Medical Branch pioglitazon 2022-0 Yes [id number] 15mg Take 1 [facility] e 15 mg 5-09 tablet by ity of tablet 00:00: mouth in [place] 00 the Medical morning. Branch metFORMIN 2022-0 Yes [id number] TAKE 1 U nivers 500 mg 5-09 TABLET BY ity of tablet 00:00: MOUTH IN [place] 00 THE Medical MORNING Branch AND IN THE EVENING WITH MEALS glimepiride 2022-0 Yes [id number] 4mg Take 1 [facility] 4 mg tablet 5-09 tablet by ity of 00:00: mouth [place] 00 daily with Medical breakfast. Branch gabapentin 2022-0 Yes [id number] 600mg Take 1 [facility] 600 mg 5-09 tablet by ity of tablet 00:00: mouth in [place] 00 the Medical morning Branch and 1 tablet at noon and 1 tablet in the evening. buPROPion 2022-0 Yes [id number] 150mg Take 1 [facility] SR 150 mg 5-09 tablet by ity o f SR tablet 00:00: mouth in [facility] 00 the Medical morning Branch and 1 tablet in the evening. furosemide 2022-0 Yes [id number] Take lasix [facility] (LASIX) 40 5-09 40 mg BID ity of mg tablet 00:00: [place] 00 Medical Branch pioglitazon 2022-0 Yes [id number] 15mg Take 1 [facility] e 15 mg 5-09 tablet by ity of tablet 00:00: mouth in [place] 00 the Medical morning. Branch metFORMIN 2022-0 Yes [id number] TAKE 1 U nivers 500 mg 5-09 TABLET BY ity of tablet 00:00: MOUTH IN [place] 00 THE Medical MORNING Branch AND IN THE EVENING WITH MEALS glimepiride 2022-0 Yes [id number] 4mg Take 1 [facility] 4 mg tablet 5-09 tablet by ity of 00:00: mouth [place] 00 daily with Medical breakfast. Branch gabapentin 2022-0 Yes [id number] 600mg Take 1 [facility] 600 mg 5-09 tablet by ity of tablet 00:00: mouth in [place] 00 the Medical morning Branch and 1 tablet at noon and 1 tablet in the evening. buPROPion 2022-0 Yes [id number] 150mg Take 1 [facility] SR 150 mg 5-09 tablet by ity o f SR tablet 00:00: mouth in [place] 00 the Medical morning Branch and 1 tablet in the evening. furosemide 2022-0 Yes [id number] Take lasix [facility] (LASIX) 40 5-09 40 mg BID ity of mg tablet 00:00: [place] 00 Medical Branch pioglitazon 2022-0 Yes [id number] 15mg Take 1 [facility] e 15 mg 5-09 tablet by ity of tablet 00:00: mouth in [place] 00 the Medical morning. Branch metFORMIN 2022-0 Yes [id number] TAKE 1 U nivers 500 mg 5-09 TABLET BY ity of tablet 00:00: MOUTH IN [place] 00 THE Medical MORNING Branch AND IN THE EVENING WITH MEALS glimepiride 2022-0 Yes [id number] 4mg Take 1 [facility] 4 mg tablet 5-09 tablet by ity of 00:00: mouth [place] 00 daily with Medical breakfast. Branch gabapentin 2022-0 Yes [id number] 600mg Take 1 [facility] 600 mg 5-09 tablet by ity of tablet 00:00: mouth in [place] 00 the Medical morning Branch and 1 tablet at noon and 1 tablet in the evening. buPROPion 2022-0 Yes [id number] 150mg Take 1 [facility] SR 150 mg 5-09 tablet by ity o f SR tablet 00:00: mouth in [place] [facility] 00 the Medical morning Branch and 1 tablet in the evening. furosemide 2022-0 Yes [id number] Take lasix [facility] (LASIX) 40 5-09 40 mg BID ity of mg tablet 00:00: [place] 00 Medical Branch pioglitazon 2022-0 Yes [id number] 15mg Take 1 [facility] e 15 mg 5-09 tablet by ity of tablet 00:00: mouth in [place] 00 the Medical morning. Branch metFORMIN 2022-0 Yes [id number] TAKE 1 U nivers 500 mg 5-09 TABLET BY ity of tablet 00:00: MOUTH IN [place] [address] THE Medical MORNING Branch AND IN THE EVENING WITH MEALS glimepiride 2022-0 Yes [id number] 4mg Take 1 [facility] 4 mg tablet 5-09 tablet by ity of 00:00: mouth [place] 00 daily with Medical breakfast. Branch gabapentin 2022-0 Yes [id number] 600mg Take 1 [facility] 600 mg 5-09 tablet by ity of tablet 00:00: mouth in [place] 00 the Medical morning Branch and 1 tablet at noon and 1 tablet in the evening. buPROPion 2022-0 Yes [id number] 150mg Take 1 [facility] SR 150 mg 5-09 tablet by ity o f SR tablet 00:00: mouth in [facility] 00 the Medical morning Branch and 1 tablet in the evening. furosemide 2022-0 Yes [id number] Take lasix [facility] (LASIX) 40 5-09 40 mg BID ity of mg tablet 00:00: [place] 00 Medical Branch pioglitazon 2022-0 Yes [id number] 15mg Take 1 [facility] e 15 mg 5-09 tablet by ity of tablet 00:00: mouth in [place] 00 the Medical morning. Branch metFORMIN 2022-0 Yes [id number] TAKE 1 U nivers 500 mg 5-09 TABLET BY ity of tablet 00:00: MOUTH IN [place] 00 THE Medical MORNING Branch AND IN THE EVENING WITH MEALS glimepiride 2022-0 Yes [id number] 4mg Take 1 [facility] 4 mg tablet 5-09 tablet by ity of 00:00: mouth [place] 00 daily with Medical breakfast. Branch gabapentin 2022-0 Yes [id number] 600mg Take 1 [facility] 600 mg 5-09 tablet by ity of tablet 00:00: mouth in [place] the Medical morning Branch and 1 tablet at noon and 1 tablet in the evening. buPROPion 2022-0 Yes [id number] 150mg Take 1 [facility] SR 150 mg 5-09 tablet by ity o f SR tablet 00:00: mouth in [facility] the Medical morning Branch and 1 tablet in the evening. furosemide 2022-0 Yes [id number] Take lasix [facility] (LASIX) 40 5-09 40 mg BID ity of mg tablet 00:00: [place] 00 Medical Branch pioglitazon 2022-0 Yes [id number] 15mg Take 1 [facility] e 15 mg 5-09 tablet by ity of tablet 00:00: mouth in [place] 00 the Medical morning. Branch metFORMIN 2022-0 Yes [id number] TAKE 1 U nivers 500 mg 5-09 TABLET BY ity of tablet 00:00: MOUTH IN [place] 00 THE Medical MORNING Branch AND IN THE EVENING WITH MEALS glimepiride 2022-0 Yes [id number] 4mg Take 1 [facility] 4 mg tablet 5-09 tablet by ity of 00:00: mouth [place] 00 daily with Medical breakfast. Branch gabapentin 2022-0 Yes [id number] 600mg Take 1 [facility] 600 mg 5-09 tablet by ity of tablet 00:00: mouth in [place] 00 the Medical morning Branch and 1 tablet at noon and 1 tablet in the evening. buPROPion 2022-0 Yes [id number] 150mg Take 1 [facility] SR 150 mg 5-09 tablet by ity o f SR tablet 00:00: mouth in [facility] 00 the Medical morning Branch and 1 tablet in the evening. furosemide 2022-0 Yes [id number] Take lasix [facility] (LASIX) 40 5-09 40 mg BID ity of mg tablet 00:00: [place] 00 Medical Branch pioglitazon 2022-0 Yes [id number] 15mg Take 1 [facility] e 15 mg 5-09 tablet by ity of tablet 00:00: mouth in [place] 00 the Medical morning. Branch metFORMIN 2022-0 Yes [id number] TAKE 1 U nivers 500 mg 5-09 TABLET BY ity of tablet 00:00: MOUTH IN [place] 00 THE Medical MORNING Branch AND IN THE EVENING WITH MEALS glimepiride 2022-0 Yes [id number] 4mg Take 1 [facility] 4 mg tablet 5-09 tablet by ity of 00:00: mouth [place] 00 daily with Medical breakfast. Branch gabapentin 2022-0 Yes [id number] 600mg Take 1 [facility] 600 mg 5-09 tablet by ity of tablet 00:00: mouth in [place] 00 the Medical morning Branch and 1 tablet at noon and 1 tablet in the evening. buPROPion 2022-0 Yes [id number] 150mg Take 1 [facility] SR 150 mg 5-09 tablet by ity o f SR tablet 00:00: mouth in [facility] the Medical morning Branch and 1 tablet in the evening. furosemide 2022-0 Yes [id number] Take lasix [facility] (LASIX) 40 5-09 40 mg BID ity of mg tablet 00:00: [place] 00 Medical Branch pioglitazon 2022-0 Yes [id number] 15mg Take 1 [facility] e 15 mg 5-09 tablet by ity of tablet 00:00: mouth in [place] 00 the Medical morning. Branch metFORMIN 3-0 Yes [id number] TAKE 1 U nivers 500 mg 5-09 TABLET BY ity of tablet 00:00: MOUTH IN [place] 00 THE Medical MORNING Branch AND IN THE EVENING WITH MEALS glimepiride 3-0 Yes [id number] 4mg Take 1 [facility] 4 mg tablet 5-09 tablet by ity of 00:00: mouth [place] 00 daily with Medical breakfast. Branch gabapentin 2022-0 Yes [id number] 600mg Take 1 [facility] 600 mg 5-09 tablet by ity of tablet 00:00: mouth in [place] 00 the Medical morning Branch and 1 tablet at noon and 1 tablet in the evening. buPROPion 2022-0 Yes [id number] 150mg Take 1 [facility] SR 150 mg 5-09 tablet by ity o f SR tablet 00:00: mouth in [place] [address] the Medical morning Branch and 1 tablet in the evening. furosemide 2022-0 Yes [id number] Take lasix [facility] (LASIX) 40 5-09 40 mg BID ity of mg tablet 00:00: [place] 00 [facility] Branch pioglitazon 3-0 Yes [id number] 15mg Take 1 [facility] e 15 mg 5-09 tablet by ity of tablet 00:00: mouth in [place] the Medical morning. Branch metFORMIN 2022-0 Yes [id number] TAKE 1 U nivers 500 mg 5-09 TABLET BY ity of tablet 00:00: MOUTH IN [place] THE Medical MORNING Branch AND IN THE EVENING WITH MEALS glimepiride 3-0 Yes [id number] 4mg Take 1 [facility] 4 mg tablet 5-09 tablet by ity of 00:00: mouth [place] 00 daily with Medical breakfast. Branch gabapentin 2022-0 Yes [id number] 600mg Take 1 [facility] 600 mg 5-09 tablet by ity of tablet 00:00: mouth in [place] 00 the Medical morning Branch and 1 tablet at noon and 1 tablet in the evening. buPROPion 3-0 Yes [id number] 150mg Take 1 [facility] SR 150 mg 5-09 tablet by ity o f SR tablet 00:00: mouth in [place] [address] the Medical morning Branch and 1 tablet in the evening. furosemide 2022-0 Yes [id number] Take lasix [facility] (LASIX) 40 5-09 40 mg BID ity of mg tablet 00:00: [place] 00 Medical Branch pioglitazon 3-0 Yes [id number] 15mg Take 1 [facility] e 15 mg 5-09 tablet by ity of tablet 00:00: mouth in [place] 00 the Medical morning. Branch metFORMIN 2022-0 Yes [id number] TAKE 1 U nivers 500 mg 5-09 TABLET BY ity of tablet 00:00: MOUTH IN [place] 00 THE Medical MORNING Branch AND IN THE EVENING WITH MEALS glimepiride 2022-0 Yes [id number] 4mg Take 1 [facility] 4 mg tablet 5-09 tablet by ity of 00:00: mouth [place] 00 daily with Medical breakfast. Branch gabapentin 2022-0 Yes [id number] 600mg Take 1 [facility] 600 mg 5-09 tablet by ity of tablet 00:00: mouth in [place] the Medical morning Branch and 1 tablet at noon and 1 tablet in the evening. buPROPion 2022-0 Yes [id number] 150mg Take 1 [facility] SR 150 mg 5-09 tablet by ity o f SR tablet 00:00: mouth in [place] [facility] the Medical morning Branch and 1 tablet in the evening. furosemide 2022-0 Yes [id number] Take lasix [facility] (LASIX) 40 5-09 40 mg BID ity of mg tablet 00:00: [place] 00 Medical Branch pioglitazon 2022-0 Yes [id number] 15mg Take 1 [facility] e 15 mg 5-09 tablet by ity of tablet 00:00: mouth in [place] the Medical morning. Branch metFORMIN 2022-0 Yes [id number] TAKE 1 U nivers 500 mg 5-09 TABLET BY ity of tablet 00:00: MOUTH IN [place] THE Medical MORNING Branch AND IN THE EVENING WITH MEALS glimepiride 2022-0 Yes [id number] 4mg Take 1 [facility] 4 mg tablet 5-09 tablet by ity of 00:00: mouth [place] 00 daily with Medical breakfast. Branch gabapentin 2022-0 Yes [id number] 600mg Take 1 [facility] 600 mg 5-09 tablet by ity of tablet 00:00: mouth in [place] 00 the Medical morning Branch and 1 tablet at noon and 1 tablet in the evening. buPROPion 2022-0 Yes [id number] 150mg Take 1 [facility] SR 150 mg 5-09 tablet by ity o f SR tablet 00:00: mouth in [place] [facility] 00 the Medical morning Branch and 1 tablet in the evening. furosemide 2022-0 Yes [id number] Take lasix [facility] (LASIX) 40 5-09 40 mg BID ity of mg tablet 00:00: [place] 00 Medical Branch pioglitazon 2022-0 Yes [id number] 15mg Take 1 [facility] e 15 mg 5-09 tablet by ity of tablet 00:00: mouth in [place] 00 the Medical morning. Branch metFORMIN 2022-0 Yes [id number] TAKE 1 U nivers 500 mg 5-09 TABLET BY ity of tablet 00:00: MOUTH IN [place] 00 THE Medical MORNING Branch AND IN THE EVENING WITH MEALS glimepiride 2022-0 Yes [id number] 4mg Take 1 [facility] 4 mg tablet 5-09 tablet by ity of 00:00: mouth [place] 00 daily with Medical breakfast. Branch gabapentin 2022-0 Yes [id number] 600mg Take 1 [facility] 600 mg 5-09 tablet by ity of tablet 00:00: mouth in [place] 00 the Medical morning Branch and 1 tablet at noon and 1 tablet in the evening. buPROPion 2022-0 Yes [id number] 150mg Take 1 [facility] SR 150 mg 5-09 tablet by ity o f SR tablet 00:00: mouth in [place] [facility] the Medical morning Branch and 1 tablet in the evening. furosemide 2022-0 Yes [id number] Take lasix [facility] (LASIX) 40 5-09 40 mg BID ity of mg tablet 00:00: [place] 00 Medical Branch pioglitazon 2022-0 Yes [id number] 15mg Take 1 [facility] e 15 mg 5-09 tablet by ity of tablet 00:00: mouth in [place] 00 the Medical morning. Branch metFORMIN 2022-0 Yes [id number] TAKE 1 U nivers 500 mg 5-09 TABLET BY ity of tablet 00:00: MOUTH IN [place] 00 THE Medical MORNING Branch AND IN THE EVENING WITH MEALS glimepiride 2022-0 Yes [id number] 4mg Take 1 [facility] 4 mg tablet 5-09 tablet by ity of 00:00: mouth [place] 00 daily with Medical breakfast. Branch gabapentin 2022-0 Yes [id number] 600mg Take 1 [facility] 600 mg 5-09 tablet by ity of tablet 00:00: mouth in [place] 00 the Medical morning Branch and 1 tablet at noon and 1 tablet in the evening. buPROPion 2022-0 Yes [id number] 150mg Take 1 [facility] SR 150 mg 5-09 tablet by ity o f SR tablet 00:00: mouth [place] 00 the Medical morning Branch and 1 tablet in the evening. furosemide 2022-0 Yes [id number] Take lasix [facility] (LASIX) 40 5-09 40 mg BID ity of mg tablet 00:00: [place] 00 Medical Branch pioglitazon 2022-0 Yes [id number] 15mg Take 1 [facility] e 15 mg 5-09 tablet by ity of tablet 00:00: mouth in [place] 00 the Medical morning. Branch metFORMIN 2022-0 Yes [id number] TAKE 1 U nivers 500 mg 5-09 TABLET BY ity of tablet 00:00: MOUTH IN [place] 00 THE Medical MORNING Branch AND IN THE EVENING WITH MEALS glimepiride 2022-0 Yes [id number] 4mg Take 1 [facility] 4 mg tablet 5-09 tablet by ity of 00:00: mouth [place] 00 daily with Medical breakfast. Branch gabapentin 2022-0 Yes [id number] 600mg Take 1 [facility] 600 mg 5-09 tablet by ity of tablet 00:00: mouth in [place] 00 the Medical morning Branch and 1 tablet at noon and 1 tablet in the evening. buPROPion 2022-0 Yes [id number] 150mg Take 1 [facility] SR 150 mg 5-09 tablet by ity o f SR tablet 00:00: mouth [place] 00 the Medical morning Branch and 1 tablet in the evening. furosemide 2022-0 Yes [id number] Take lasix [facility] (LASIX) 40 5-09 40 mg BID ity of mg tablet 00:00: [place] 00 Medical Branch pioglitazon 2022-0 Yes [id number] 15mg Take 1 [facility] e 15 mg 5-09 tablet by ity of tablet 00:00: mouth in [place] 00 the Medical morning. Branch metFORMIN 2022-0 Yes [id number] TAKE 1 U nivers 500 mg 5-09 TABLET BY ity of tablet 00:00: MOUTH IN [place] 00 THE Medical MORNING Branch AND IN THE EVENING WITH MEALS glimepiride 2022-0 Yes [id number] 4mg Take 1 [facility] 4 mg tablet 5-09 tablet by ity of 00:00: mouth [place] 00 daily with Medical breakfast. Branch gabapentin 2022-0 Yes [id number] 600mg Take 1 [facility] 600 mg 5-09 tablet by ity of tablet 00:00: mouth in [place] 00 the Medical morning Branch and 1 tablet at noon and 1 tablet in the evening. buPROPion 3-0 Yes [id number] 150mg Take 1 [facility] SR 150 mg 5-09 tablet by ity o f SR tablet 00:00: mouth [place] 00 the Medical morning Branch and 1 tablet in the evening. pioglitazon 2022-0 Yes [id number] 15mg Take 1 [facility] e 15 mg 5-09 tablet by ity of tablet 00:00: mouth in [place] 00 the Medical morning. Branch metFORMIN 2022-0 Yes [id number] TAKE 1 U nivers 500 mg 5-09 TABLET BY ity of tablet 00:00: MOUTH IN [place] 00 THE Medical MORNING Branch AND IN THE EVENING WITH MEALS glimepiride 2022-0 Yes [id number] 4mg Take 1 [facility] 4 mg tablet 5-09 tablet by ity of 00:00: mouth [place] 00 daily with Medical breakfast. Branch gabapentin 2022-0 Yes [id number] 600mg Take 1 [facility] 600 mg 5-09 tablet by ity of tablet 00:00: mouth in [place] 00 the Medical morning Branch and 1 tablet at noon and 1 tablet in the evening. buPROPion 2022-0 Yes [id number] 150mg Take 1 [facility] SR 150 mg 5-09 tablet by ity o f SR tablet 00:00: mouth in [place] [facility] 00 the Medical morning Branch and 1 tablet in the evening. pioglitazon 2022-0 Yes [id number] 15mg Take 1 [facility] e 15 mg 5-09 tablet by ity of tablet 00:00: mouth in [place] 00 the Medical morning. Branch metFORMIN 2022-0 Yes [id number] TAKE 1 U nivers 500 mg 5-09 TABLET BY ity of tablet 00:00: MOUTH IN [place] 00 THE Medical MORNING Branch AND IN THE EVENING WITH MEALS glimepiride 2022-0 Yes [id number] 4mg Take 1 [facility] 4 mg tablet 5-09 tablet by ity of 00:00: mouth [place] 00 daily with Medical breakfast. Branch gabapentin 2022-0 Yes [id number] 600mg Take 1 [facility] 600 mg 5-09 tablet by ity of tablet 00:00: mouth in [place] 00 the Medical morning Branch and 1 tablet at noon and 1 tablet in the evening. buPROPion 2023-0 Yes [id number] 150mg Take 1 [facility] SR 150 mg 5-09 tablet by ity o f SR tablet 00:00: mouth in [place] [facility] 00 the Medical morning Branch and 1 tablet in the evening. pioglitazon 2022-0 Yes [id number] 15mg Take 1 [facility] e 15 mg 5-09 tablet by ity of tablet 00:00: mouth in [place] 00 the Medical morning. Branch metFORMIN 2022-0 Yes [id number] TAKE 1 U nivers 500 mg 5-09 TABLET BY ity of tablet 00:00: MOUTH IN [place] 00 THE Medical MORNING Branch AND IN THE EVENING WITH MEALS glimepiride 2022-0 Yes [id number] 4mg Take 1 [facility] 4 mg tablet 5-09 tablet by ity of 00:00: mouth [place] 00 daily with Medical breakfast. Branch gabapentin 2022-0 Yes [id number] 600mg Take 1 [facility] 600 mg 5-09 tablet by ity of tablet 00:00: mouth in [place] 00 the Medical morning Branch and 1 tablet at noon and 1 tablet in the evening. buPROPion 2022-0 Yes [id number] 150mg Take 1 [facility] SR 150 mg 5-09 tablet by ity o f SR tablet 00:00: mouth in [place] [facility] 00 the Medical morning Branch and 1 tablet in the evening. pioglitazon 2022-0 Yes [id number] 15mg Take 1 [facility] e 15 mg 5-09 tablet by ity of tablet 00:00: mouth in [place] 00 the Medical morning. Branch metFORMIN 2022-0 Yes [id number] TAKE 1 U nivers 500 mg 5-09 TABLET BY ity of tablet 00:00: MOUTH IN [place] 00 THE Medical MORNING Branch AND IN THE EVENING WITH MEALS glimepiride 2022-0 Yes [id number] 4mg Take 1 [facility] 4 mg tablet 5-09 tablet by ity of 00:00: mouth [place] 00 daily with Medical breakfast. Branch gabapentin 2022-0 Yes [id number] 600mg Take 1 [facility] 600 mg 5-09 tablet by ity of tablet 00:00: mouth in [place] [address] the Medical morning Branch and 1 tablet at noon and 1 tablet in the evening. buPROPion 2022-0 Yes [id number] 150mg Take 1 [facility] SR 150 mg 5-09 tablet by ity o f SR tablet 00:00: mouth [place] 00 the Medical morning Branch and 1 tablet in the evening. pioglitazon 2022-0 Yes [id number] 15mg Take 1 [facility] e 15 mg 5-09 tablet by ity of tablet 00:00: mouth in [place] 00 the Medical morning. Branch metFORMIN 2022-0 Yes [id number] TAKE 1 U nivers 500 mg 5-09 TABLET BY ity of tablet 00:00: MOUTH IN [place] 00 THE Medical MORNING Branch AND IN THE EVENING WITH MEALS glimepiride 2022-0 Yes [id number] 4mg Take 1 [facility] 4 mg tablet 5-09 tablet by ity of 00:00: mouth [place] 00 daily with Medical breakfast. Branch gabapentin 2022-0 Yes [id number] 600mg Take 1 [facility] 600 mg 5-09 tablet by ity of tablet 00:00: mouth in [place] 00 the Medical morning Branch and 1 tablet at noon and 1 tablet in the evening. buPROPion 2022-0 Yes [id number] 150mg Take 1 [facility] SR 150 mg 5-09 tablet by ity o f SR tablet 00:00: mouth in [place] [facility] 00 the Medical morning Branch and 1 tablet in the evening. pioglitazon 2022-0 Yes [id number] 15mg Take 1 [facility] e 15 mg 5-09 tablet by ity of tablet 00:00: mouth in [place] the Medical morning. Branch metFORMIN 2022-0 Yes [id number] TAKE 1 U nivers 500 mg 5-09 TABLET BY ity of tablet 00:00: MOUTH IN [place] THE Medical MORNING Branch AND IN THE EVENING WITH MEALS glimepiride 2022-0 Yes [id number] 4mg Take 1 [facility] 4 mg tablet 5-09 tablet by ity of 00:00: mouth [place] 00 daily with Medical breakfast. Branch gabapentin 2022-0 Yes [id number] 600mg Take 1 [facility] 600 mg 5-09 tablet by ity of tablet 00:00: mouth in [place] 00 the Medical morning Branch and 1 tablet at noon and 1 tablet in the evening. buPROPion 3-0 Yes [id number] 150mg Take 1 [facility] SR 150 mg 5-09 tablet by ity o f SR tablet 00:00: mouth in [place] [facility] 00 the Medical morning Branch and 1 tablet in the evening. pioglitazon 2022-0 Yes [id number] 15mg Take 1 [facility] e 15 mg 5-09 tablet by ity of tablet 00:00: mouth in [place] the Medical morning. Branch metFORMIN 2022-0 Yes [id number] TAKE 1 U nivers 500 mg 5-09 TABLET BY ity of tablet 00:00: MOUTH IN [place] 00 THE Medical MORNING Branch AND IN THE EVENING WITH MEALS glimepiride 2022-0 Yes [id number] 4mg Take 1 [facility] 4 mg tablet 5-09 tablet by ity of 00:00: mouth [place] 00 daily with Medical breakfast. Branch gabapentin 2022-0 Yes [id number] 600mg Take 1 [facility] 600 mg 5-09 tablet by ity of tablet 00:00: mouth in [place] 00 the Medical morning Branch and 1 tablet at noon and 1 tablet in the evening. buPROPion 2022-0 Yes [id number] 150mg Take 1 [facility] SR 150 mg 5-09 tablet by ity o f SR tablet 00:00: mouth in [place] [facility] the Medical morning Branch and 1 tablet in the evening. pioglitazon 2022-0 Yes [id number] 15mg Take 1 [facility] e 15 mg 5-09 tablet by ity of tablet 00:00: mouth in [place] the Medical morning. Branch metFORMIN 2022-0 Yes [id number] TAKE 1 U nivers 500 mg 5-09 TABLET BY ity of tablet 00:00: MOUTH IN [place] THE Medical MORNING Branch AND IN THE EVENING WITH MEALS glimepiride 2022-0 Yes [id number] 4mg Take 1 [facility] 4 mg tablet 5-09 tablet by ity of 00:00: mouth [place] 00 daily with Medical breakfast. Branch gabapentin 2022-0 Yes [id number] 600mg Take 1 [facility] 600 mg 5-09 tablet by ity of tablet 00:00: mouth in [place] 00 the Medical morning Branch and 1 tablet at noon and 1 tablet in the evening. buPROPion 2022-0 Yes [id number] 150mg Take 1 [facility] SR 150 mg 5-09 tablet by ity o f SR tablet 00:00: mouth in [place] [facility] 00 the Medical morning Branch and 1 tablet in the evening. pioglitazon 3-0 Yes [id number] 15mg Take 1 [facility] e 15 mg 5-09 tablet by ity of tablet 00:00: mouth in [place] 00 the Medical morning. Branch metFORMIN 2022-0 Yes [id number] TAKE 1 U nivers 500 mg 5-09 TABLET BY ity of tablet 00:00: MOUTH IN [place] 00 THE Medical MORNING Branch AND IN THE EVENING WITH MEALS glimepiride 2022-0 Yes [id number] 4mg Take 1 [facility] 4 mg tablet 5-09 tablet by ity of 00:00: mouth [place] 00 daily with Medical breakfast. Branch gabapentin 2022-0 Yes [id number] 600mg Take 1 [facility] 600 mg 5-09 tablet by ity of tablet 00:00: mouth in [place] 00 the Medical morning Branch and 1 tablet at noon and 1 tablet in the evening. buPROPion 2022-0 Yes [id number] 150mg Take 1 [facility] SR 150 mg 5-09 tablet by ity o f SR tablet 00:00: mouth in [place] [facility] 00 the Medical morning Branch and 1 tablet in the evening. pioglitazon 2022-0 Yes [id number] 15mg Take 1 [facility] e 15 mg 5-09 tablet by ity of tablet 00:00: mouth in [place] 00 the Medical morning. Branch metFORMIN 2022-0 Yes [id number] TAKE 1 U nivers 500 mg 5-09 TABLET BY ity of tablet 00:00: MOUTH IN [place] 00 THE Medical MORNING Branch AND IN THE EVENING WITH MEALS glimepiride 2022-0 Yes [id number] 4mg Take 1 [facility] 4 mg tablet 5-09 tablet by ity of 00:00: mouth [place] 00 daily with Medical breakfast. Branch gabapentin 2022-0 Yes [id number] 600mg Take 1 [facility] 600 mg 5-09 tablet by ity of tablet 00:00: mouth in [place] 00 the Medical morning Branch and 1 tablet at noon and 1 tablet in the evening. buPROPion 2022-0 Yes [id number] 150mg Take 1 [facility] SR 150 mg 5-09 tablet by ity o f SR tablet 00:00: mouth in [place] [facility] 00 the Medical morning Branch and 1 tablet in the evening. pioglitazon 3-0 Yes [id number] 15mg Take 1 [facility] e 15 mg 5-09 tablet by ity of tablet 00:00: mouth in [place] 00 the Medical morning. Branch metFORMIN 2022-0 Yes [id number] TAKE 1 U nivers 500 mg 5-09 TABLET BY ity of tablet 00:00: MOUTH IN [place] 00 THE Medical MORNING Branch AND IN THE EVENING WITH MEALS glimepiride 2022-0 Yes [id number] 4mg Take 1 [facility] 4 mg tablet 5-09 tablet by ity of 00:00: mouth [place] 00 daily with Medical breakfast. Branch gabapentin 2022-0 Yes [id number] 600mg Take 1 [facility] 600 mg 5-09 tablet by ity of tablet 00:00: mouth in [place] 00 the Medical morning Branch and 1 tablet at noon and 1 tablet in the evening. buPROPion 2022-0 Yes [id number] 150mg Take 1 [facility] SR 150 mg 5-09 tablet by ity o f SR tablet 00:00: mouth in [place] 00 the Medical morning Branch and 1 tablet in the evening. pioglitazon 2022-0 Yes [id number] 15mg Take 1 [facility] e 15 mg 5-09 tablet by ity of tablet 00:00: mouth in [place] 00 the Medical morning. Branch metFORMIN 2022-0 Yes [id number] TAKE 1 U nivers 500 mg 5-09 TABLET BY ity of tablet 00:00: MOUTH IN [place] 00 THE Medical MORNING Branch AND IN THE EVENING WITH MEALS glimepiride 2022-0 Yes [id number] 4mg Take 1 [facility] 4 mg tablet 5-09 tablet by ity of 00:00: mouth [place] 00 daily with Medical breakfast. Branch gabapentin 2022-0 Yes [id number] 600mg Take 1 [facility] 600 mg 5-09 tablet by ity of tablet 00:00: mouth in [place] 00 the Medical morning Branch and 1 tablet at noon and 1 tablet in the evening. buPROPion 2022-0 Yes [id number] 150mg Take 1 [facility] SR 150 mg 5-09 tablet by ity o f SR tablet 00:00: mouth in [place] 00 the Medical morning Branch and 1 tablet in the evening. pioglitazon 2022-0 Yes [id number] 15mg Take 1 [facility] e 15 mg 5-09 tablet by ity of tablet 00:00: mouth in [place] 00 the Medical morning. Branch metFORMIN 2022-0 Yes [id number] TAKE 1 U nivers 500 mg 5-09 TABLET BY ity of tablet 00:00: MOUTH IN [place] 00 THE Medical MORNING Branch AND IN THE EVENING WITH MEALS glimepiride 2022-0 Yes [id number] 4mg Take 1 [facility] 4 mg tablet 5-09 tablet by ity of 00:00: mouth [place] 00 daily with Medical breakfast. Branch gabapentin 3-0 Yes [id number] 600mg Take 1 [facility] 600 mg 5-09 tablet by ity of tablet 00:00: mouth in [place] 00 the Medical morning Branch and 1 tablet at noon and 1 tablet in the evening. buPROPion 3-0 Yes [id number] 150mg Take 1 [facility] SR 150 mg 5- tablet by ity o f SR tablet 00:00: [facility] the Medical morning Branch and 1 tablet in the evening. metFORMIN 2022-0 Yes [id number] TAKE 1 U nivers 500 mg 5- TABLET BY ity of tablet 00:00: MOUTH IN [place] 00 THE Medical MORNING Branch AND IN THE EVENING WITH MEALS gabapentin 2022-0 202- No [id number] 600mg Take 1 [facility] 600 mg 03-12 tablet by ity of tablet 00:00: 00:00 mouth in [place] 00 :00 the Medical morning Branch and 1 tablet at noon and 1 tablet in the evening. buPROPion 2022-0 2023- No [id number] 150mg Take 1 [facility] SR 150 mg 03-12 tablet by ity of SR tablet 00:00: 00:00 mouth in [facility] 00 :00 the Medical morning Branch and 1 tablet in the evening. metFORMIN 2022-0 2023- No [id number] TAKE 1 [facility] 500 mg 03-12 TABLET BY ity of tablet 00:00: 00:00 MOUTH IN [place] 00 :00 THE Medical MORNING Branch AND IN THE EVENING WITH MEALS gabapentin 3-0 2023- No [id number] 600mg Take 1 [facility] 600 mg 03-12 tablet by ity of tablet 00:00: 00:00 mouth in [place] 00 :00 the Medical morning Branch and 1 tablet at noon and 1 tablet in the evening. buPROPion 202-0 2023- No [id number] 150mg Take 1 [facility] SR 150 mg 03-12 tablet by ity of SR tablet 00:00: 00:00 mouth in [place] 00 :00 the Medical morning Branch and 1 tablet in the evening. metFORMIN 2022-0 2023- No [id number] TAKE 1 [facility] 500 mg 03-12 TABLET BY ity of tablet 00:00: 00:00 MOUTH IN [place] 00 :00 THE Medical MORNING Branch AND IN THE EVENING WITH MEALS gabapentin 2022-2022- No [id number] 600mg Take 1 [facility] 600 mg 03-12 tablet by ity of tablet 00:00: 00:00 mouth in [place] 00 :00 the Medical morning Branch and 1 tablet at noon and 1 tablet in the evening. buPROPion 2022-2022- No [id number] 150mg Take 1 [facility] SR 150 mg 03-12 tablet by ity of SR tablet 00:00: 00:00 mouth in [place] 00 :00 the Medical morning Branch and 1 tablet in the evening. metFORMIN 2022-2022- No [id number] TAKE 1 [facility] 500 mg 03-12 TABLET BY ity of tablet 00:00: 00:00 MOUTH IN [place] 00 :00 THE Medical MORNING Branch AND IN THE EVENING WITH MEALS gabapentin 2022-2022- No [id number] 600mg Take 1 [facility] 600 mg 03-12 tablet by ity of tablet 00:00: 00:00 mouth in [place] 00 :00 the Medical morning Branch and 1 tablet at noon and 1 tablet in the evening. buPROPion 2022-2022- No [id number] 150mg Take 1 [facility] SR 150 mg 03-12 tablet by ity of SR tablet 00:00: 00:00 mouth in [facility] 00 :00 the Medical morning Branch and 1 tablet in the evening. metFORMIN 2022-2022- No [id number] TAKE 1 [facility] 500 mg 03-12 TABLET BY ity of tablet 00:00: 00:00 MOUTH IN [place] 00 :00 THE Medical MORNING Branch AND IN THE EVENING WITH MEALS pioglitazon 2022- No [id number] 15mg Take 1 [facility] e 15 mg 03-12 tablet by ity of tablet 00:00: 00:00 mouth in [place] 00 :00 the Medical morning. Branch glimepiride 2022- No [id number] 4mg Take 1 [facility] 4 mg tablet 03-12 tablet by it y of 00:00: 00:00 mouth [place] 00 :00 daily with Medical breakfast. Branch furosemide 2022-2022- No [id number] Take lasix [facility] (LASIX) 40 5-09 08-08 40 mg BID ity of mg tablet 00:00: 00:00 [place] 00 :00 Medical Branch furosemide 2022-0 2022- No [id number] Take lasix [facility] (LASIX) 40 03-12 08-08 40 mg BID ity of mg tablet 00:00: 00:00 [place] 00 :00 Medical Branch furosemide 2022-0 2022- No [id number] Take lasix [facility] (LASIX) 40 03-12 08-08 40 mg BID ity of mg tablet 00:00: 00:00 [place] 00 :00 Medical Branch diclofenac- 2022- No [id number] 1{tbl} Take 1 [facility] misoprostoL 03-12- tablet by it y of 50-200 00:00: 00:00 mouth [place] mg-mcg per 00 :00 daily as Medic al tablet needed Branch (Chronic Pain - Arthritis, multiple joint involvemen t). DULoxetine 2022- No [id number] 60mg Take 1 [facility] 60 mg 03-12- capsule by ity of capsule 00:00: 00:00 mouth in [place] 00 :00 the Medical morning Branch and 1 capsule in the evening. diclofenac- 2022- No [id number] 1{tbl} Take 1 [facility] misoprostoL 03-12- tablet by it y of 50-200 00:00: 00:00 mouth [place] mg-mcg per 00 :00 daily as Medic al tablet needed Branch (Chronic Pain - Arthritis, multiple joint involvemen t). DULoxetine 2022- No [id number] 60mg Take 1 [facility] 60 mg 03-12- capsule by ity of capsule 00:00: 00:00 mouth in [place] 00 :00 the Medical morning Branch and 1 capsule in the evening. diclofenac- 2022- No [id number] 1{tbl} Take 1 [facility] misoprostoL 03-12-23 tablet by it y of 50-200 00:00: 00:00 mouth [place] mg-mcg per 00 :00 daily as Medic al tablet needed Branch (Chronic Pain - Arthritis, multiple joint involvemen t). DULoxetine 2022- No [id number] 60mg Take 1 [facility] 60 mg 03-12- capsule by ity of capsule 00:00: 00:00 mouth in [place] 00 :00 the Medical morning Branch and 1 capsule in the evening. FLUTICASONE 0 Yes [id number] SHAKE Univers PROPIONATE 3-28 LIQUID AND ity of 50 00:00: USE 2 [place] mcg/actuati 00 SPRAYS IN Med ical on nasal EACH Branch spray NOSTRIL EVERY DAY FLUTICASONE 0 Yes [id number] SHAKE [facility] PROPIONATE 3-28 LIQUID AND ity of 50 00:00: USE 2 [place] mcg/actuati 00 SPRAYS IN Med ical on nasal EACH Branch spray NOSTRIL EVERY DAY FLUTICASONE 0 Yes [id number] SHAKE [facility] PROPIONATE 3-28 LIQUID AND ity of 50 00:00: USE 2 [place] mcg/actuati 00 SPRAYS IN Med ical on nasal EACH Branch spray NOSTRIL EVERY DAY FLUTICASONE 0 Yes [id number] SHAKE [facility] PROPIONATE 3-28 LIQUID AND ity of 50 00:00: USE 2 [place] mcg/actuati 00 SPRAYS IN Med ical on nasal EACH Branch spray NOSTRIL EVERY DAY FLUTICASONE 0 Yes [id number] SHAKE [facility] PROPIONATE 3-28 LIQUID AND ity of 50 00:00: USE 2 [place] mcg/actuati 00 SPRAYS IN Med ical on nasal EACH Branch spray NOSTRIL EVERY DAY FLUTICASONE 0 Yes [id number] SHAKE [facility] PROPIONATE 3-28 LIQUID AND ity of 50 00:00: USE 2 [place] mcg/actuati 00 SPRAYS IN Med ical on nasal EACH Branch spray NOSTRIL EVERY DAY FLUTICASONE 0 Yes [id number] SHAKE [facility] PROPIONATE 3-28 LIQUID AND ity of 50 00:00: USE 2 [place] mcg/actuati 00 SPRAYS IN Med ical on nasal EACH Branch spray NOSTRIL EVERY DAY FLUTICASONE 0 Yes [id number] [facility] PROPIONATE 3-28 LIQUID AND ity of 50 00:00: USE 2 [place] mcg/actuati 00 SPRAYS IN Med ical on nasal EACH Branch spray NOSTRIL EVERY DAY FLUTICASONE 0 Yes [id number] SHAKE [facility] PROPIONATE 3-28 LIQUID AND ity of 50 00:00: USE 2 [place] mcg/actuati 00 SPRAYS IN Med ical on nasal EACH Branch spray NOSTRIL EVERY DAY FLUTICASONE Yes [id number] SHAKE [facility] PROPIONATE 3-28 LIQUID AND ity of 50 00:00: USE 2 [place] mcg/actuati 00 SPRAYS IN Med ical on nasal EACH Branch spray NOSTRIL EVERY DAY FLUTICASONE Yes [id number] SHAKE [facility] PROPIONATE 3-28 LIQUID AND ity of 50 00:00: USE 2 [place] mcg/actuati 00 SPRAYS IN Med ical on nasal EACH Branch spray NOSTRIL EVERY DAY FLUTICASONE Yes [id number] [facility]KE [facility] PROPIONATE 3-28 LIQUID AND ity of 50 00:00: USE 2 [place] mcg/actuati 00 SPRAYS IN Med ical on nasal EACH Branch spray NOSTRIL EVERY DAY FLUTICASONE Yes [id number] SHAKE [facility] PROPIONATE 3-28 LIQUID AND ity of 50 00:00: USE 2 [place] mcg/actuati 00 SPRAYS IN Med ical on nasal EACH Branch spray NOSTRIL EVERY DAY FLUTICASONE Yes [id number] SHAKE [facility] PROPIONATE 3-28 LIQUID AND ity of 50 00:00: USE 2 [place] mcg/actuati 00 SPRAYS IN Med ical on nasal EACH Branch spray NOSTRIL EVERY DAY FLUTICASONE Yes [id number] SHAKE [facility] PROPIONATE 3-28 LIQUID AND ity of 50 00:00: USE 2 [place] mcg/actuati 00 SPRAYS IN Med ical on nasal EACH Branch spray NOSTRIL EVERY DAY FLUTICASONE 0 Yes [id number] SHAKE [facility] PROPIONATE 3-28 LIQUID AND ity of 50 00:00: USE 2 [place] mcg/actuati 00 SPRAYS IN Med ical on nasal EACH Branch spray NOSTRIL EVERY DAY FLUTICASONE Yes [id number] SHAKE [facility] PROPIONATE 3-28 LIQUID AND ity of 50 00:00: USE 2 [place] mcg/actuati 00 SPRAYS IN Med ical on nasal EACH Branch spray NOSTRIL EVERY DAY FLUTICASONE 0 Yes [id number] SHAKE [facility] PROPIONATE 3-28 LIQUID AND ity of 50 00:00: USE 2 [place] mcg/actuati 00 SPRAYS IN Med ical on nasal EACH Branch spray NOSTRIL EVERY DAY FLUTICASONE 0 Yes [id number] SHAKE [facility] PROPIONATE 3-28 LIQUID AND ity of 50 00:00: USE 2 [place] mcg/actuati 00 SPRAYS IN Med ical on nasal EACH Branch spray NOSTRIL EVERY DAY FLUTICASONE Yes [id number] SHAKE [facility] PROPIONATE 3-28 LIQUID AND ity of 50 00:00: USE 2 [place] mcg/actuati 00 SPRAYS IN Med ical on nasal EACH Branch spray NOSTRIL EVERY DAY FLUTICASONE 0 Yes [id number] SHAKE [facility] PROPIONATE 3-28 LIQUID AND ity of 50 00:00: USE 2 [place] mcg/actuati 00 SPRAYS IN Med ical on nasal EACH Branch spray NOSTRIL EVERY DAY FLUTICASONE Yes [id number] SHAKE [facility] PROPIONATE 3-28 LIQUID AND ity of 50 00:00: USE 2 [place] mcg/actuati 00 SPRAYS IN Med ical on nasal EACH Branch spray NOSTRIL EVERY DAY FLUTICASONE Yes [id number] SHAKE [facility] PROPIONATE 3-28 LIQUID AND ity of 50 00:00: USE 2 [place] mcg/actuati 00 SPRAYS IN Med ical on nasal EACH Branch spray NOSTRIL EVERY DAY FLUTICASONE Yes [id number] SHAKE [facility] PROPIONATE 3-28 LIQUID AND ity of 50 00:00: USE 2 [place] mcg/actuati 00 SPRAYS IN Med ical on nasal EACH Branch spray NOSTRIL EVERY DAY FLUTICASONE 0 Yes [id number] SHAKE [facility] PROPIONATE 3-28 LIQUID AND ity of 50 00:00: USE 2 [place] mcg/actuati 00 SPRAYS IN Med ical on nasal EACH Branch spray NOSTRIL EVERY DAY FLUTICASONE 0 Yes [id number] SHAKE [facility] PROPIONATE 3-28 LIQUID AND ity of 50 00:00: USE 2 [place] mcg/actuati 00 SPRAYS IN Med ical on nasal EACH Branch spray NOSTRIL EVERY DAY FLUTICASONE 0 Yes [id number] SHAKE [facility] PROPIONATE 3-28 LIQUID AND ity of 50 00:00: USE 2 [place] mcg/actuati 00 SPRAYS IN Med ical on nasal EACH Branch spray NOSTRIL EVERY DAY FLUTICASONE 0 Yes [id number] SHAKE [facility] PROPIONATE 3-28 LIQUID AND ity of 50 00:00: USE 2 [place] mcg/actuati 00 SPRAYS IN Med ical on nasal EACH Branch spray NOSTRIL EVERY DAY FLUTICASONE Yes [id number] SHAKE [facility] PROPIONATE 3-28 LIQUID AND ity of 50 00:00: USE 2 [place] mcg/actuati 00 SPRAYS IN Med ical on nasal EACH Branch spray NOSTRIL EVERY DAY FLUTICASONE Yes [id number] SHAKE [facility] PROPIONATE 3-28 LIQUID AND ity of 50 00:00: USE 2 [place] mcg/actuati 00 SPRAYS IN Med ical on nasal EACH Branch spray NOSTRIL EVERY DAY FLUTICASONE Yes [id number] SHAKE [facility] PROPIONATE 3-28 LIQUID AND ity of 50 00:00: USE 2 [place] mcg/actuati 00 SPRAYS IN Med ical on nasal EACH Branch spray NOSTRIL EVERY DAY FLUTICASONE Yes [id number] SHAKE [facility] PROPIONATE 3-28 LIQUID AND ity of 50 00:00: USE 2 [place] mcg/actuati 00 SPRAYS IN Med ical on nasal EACH Branch spray NOSTRIL EVERY DAY FLUTICASONE Yes [id number] SHAKE [facility] PROPIONATE 3-28 LIQUID AND ity of 50 00:00: USE 2 [place] mcg/actuati 00 SPRAYS IN Med ical on nasal EACH Branch spray NOSTRIL EVERY DAY FLUTICASONE Yes [id number] SHAKE [facility] PROPIONATE 3-28 LIQUID AND ity of 50 00:00: USE 2 [place] mcg/actuati 00 SPRAYS IN Med ical on nasal EACH Branch spray NOSTRIL EVERY DAY FLUTICASONE 2022- No [id number] SHAKE [facility] PROPIONATE 3-28 07-21 LIQUID AND it y of 50 00:00: 00:00 USE 2 [place] mcg/actuati 00 :00 SPRAYS IN Med ical on nasal EACH Branch spray NOSTRIL EVERY DAY FLUTICASONE 2022- No [id number] SHAKE [facility] PROPIONATE 3-28 07-21 LIQUID AND it y of 50 00:00: 00:00 USE 2 [place] mcg/actuati 00 :00 SPRAYS IN Med ical on nasal EACH Branch spray NOSTRIL EVERY DAY FLUTICASONE 2022- No [id number] SHAKE [facility] PROPIONATE 3-28 07-21 LIQUID AND it y of 50 00:00: 00:00 USE 2 [place] mcg/actuati 00 :00 SPRAYS IN Med ical on nasal EACH Branch spray NOSTRIL EVERY DAY FLUTICASONE 2022-0 3- No [id number] [facility] PROPIONATE 01-29 LIQUID AND it y of 50 00:00: 00:00 USE 2 [place] mcg/actuati 00 :00 SPRAYS IN Med ical on nasal EACH Branch spray NOSTRIL EVERY DAY FLUTICASONE [id number] 2023- No [id number] [facility] PROPIONATE 01-29 LIQUID AND it y of 50 00:00: 00:00 USE 2 [place] mcg/actuati 00 :00 SPRAYS IN Med ical on nasal EACH Branch spray NOSTRIL EVERY DAY ergocalcife 2023-0 Yes [id number] Take 1 [facility] rol, 3-19 capsule by ity of vitamin d2, 00:00: mouth [place] 1,250 mcg 00 weekly. Medical (50,000 Branch unit) capsule calcium 2022-0 Yes [id number] 500mg Take 1 [facility] vers carbonate 3-19 tablet by ity o f (CALCIUM 00:00: mouth in [place] 500) 500 mg 00 the Medical calcium morning. Branch (1,250 mg) tablet ergocalcife 2023-0 Yes [id number] Take 1 [facility] rol, 3-19 capsule by ity of vitamin d2, 00:00: mouth [place] 1,250 mcg 00 weekly. Medical (50,000 Branch unit) capsule calcium 3-0 Yes [id number] 500mg Take 1 [facility] vers carbonate 3-19 tablet by ity o f (CALCIUM 00:00: mouth in [place] 500) 500 mg 00 the Medical calcium morning. Branch (1,250 mg) tablet ergocalcife 2023-0 Yes [id number] Take 1 [facility] rol, 3-19 capsule by ity of vitamin d2, 00:00: mouth [place] 1,250 mcg 00 weekly. Medical (50,000 Branch unit) capsule calcium 2023-0 Yes [id number] 500mg Take 1 [facility] vers carbonate 3-19 tablet by ity o f (CALCIUM 00:00: mouth in [place] 500) 500 mg 00 the Medical calcium morning. Branch (1,250 mg) tablet ergocalcife 2023-0 Yes [id number] Take 1 [facility] rol, 3-19 capsule by ity of vitamin d2, 00:00: mouth [place] 1,250 mcg 00 weekly. Medical (50,000 Branch unit) capsule calcium 2023-0 Yes [id number] 500mg Take 1 [facility] carbonate 3-19 tablet by ity o f (CALCIUM 00:00: mouth in [place] 500) 500 mg 00 the Medical calcium morning. Branch (1,250 mg) tablet ergocalcife 2023-0 Yes [id number] Take 1 [facility] rol, 3-19 capsule by ity of vitamin d2, 00:00: mouth [place] 1,250 mcg 00 weekly. Medical (50,000 Branch unit) capsule calcium 2023-0 Yes [id number] 500mg Take 1 [facility] vers carbonate 3-19 tablet by ity o f (CALCIUM 00:00: mouth in [place] 500) 500 mg 00 the Medical calcium morning. Branch (1,250 mg) tablet ergocalcife 2023-0 Yes [id number] Take 1 [facility] rol, 3-19 capsule by ity of vitamin d2, 00:00: mouth [place] 1,250 mcg 00 weekly. Medical (50,000 Branch unit) capsule calcium 2023-0 Yes [id number] 500mg Take 1 [facility] vers carbonate 3-19 tablet by ity o f (CALCIUM 00:00: mouth in [place] 500) 500 mg 00 the Medical calcium morning. Branch (1,250 mg) tablet ergocalcife 2023-0 Yes [id number] Take 1 [facility] rol, 3-19 capsule by ity of vitamin d2, 00:00: mouth [place] 1,250 mcg 00 weekly. Medical (50,000 Branch unit) capsule calcium 2023-0 Yes [id number] 500mg Take 1 [facility] carbonate 3-19 tablet by ity o f (CALCIUM 00:00: mouth in [place] 500) 500 mg 00 the Medical calcium morning. Branch (1,250 mg) tablet ergocalcife 2023-0 Yes [id number] Take 1 [facility] rol, 3-19 capsule by ity of vitamin d2, 00:00: mouth [place] 1,250 mcg 00 weekly. Medical (50,000 Branch unit) capsule calcium 2023-0 Yes [id number] 500mg Take 1 [facility] vers carbonate 3-19 tablet by ity o f (CALCIUM 00:00: mouth in [place] 500) 500 mg 00 the Medical calcium morning. Branch (1,250 mg) tablet ergocalcife 2023-0 Yes [id number] Take 1 [facility] rol, 3-19 capsule by ity of vitamin d2, 00:00: mouth [place] 1,250 mcg 00 weekly. Medical (50,000 Branch unit) capsule calcium 2023-0 Yes [id number] 500mg Take 1 [facility] vers carbonate 3-19 tablet by ity o f (CALCIUM 00:00: mouth in [place] 500) 500 mg 00 the Medical calcium morning. Branch (1,250 mg) tablet ergocalcife 2023-0 Yes [id number] Take 1 [facility] rol, 3-19 capsule by ity of vitamin d2, 00:00: mouth [place] 1,250 mcg 00 weekly. Medical (50,000 Branch unit) capsule calcium 2023-0 Yes [id number] 500mg Take 1 [facility] vers carbonate 3-19 tablet by ity o f (CALCIUM 00:00: mouth in [place] 500) 500 mg 00 the Medical calcium morning. Branch (1,250 mg) tablet ergocalcife 2023-0 Yes [id number] Take 1 [facility] rol, 3-19 capsule by ity of vitamin d2, 00:00: mouth [place] 1,250 mcg 00 weekly. Medical (50,000 Branch unit) capsule calcium 2023-0 Yes [id number] 500mg Take 1 [facility] vers carbonate 3-19 tablet by ity o f (CALCIUM 00:00: mouth in [place] 500) 500 mg 00 the Medical calcium morning. Branch (1,250 mg) tablet ergocalcife 2023-0 Yes [id number] Take 1 [facility] rol, 3-19 capsule by ity of vitamin d2, 00:00: mouth [place] 1,250 mcg 00 weekly. Medical (50,000 Branch unit) capsule calcium 2023-0 Yes [id number] 500mg Take 1 [facility] vers carbonate 3-19 tablet by ity o f (CALCIUM 00:00: mouth in [place] 500) 500 mg 00 the Medical calcium morning. Branch (1,250 mg) tablet ergocalcife 2023-0 Yes [id number] Take 1 [facility] rol, 3-19 capsule by ity of vitamin d2, 00:00: mouth [place] 1,250 mcg 00 weekly. Medical (50,000 Branch unit) capsule calcium 2023-0 Yes [id number] 500mg Take 1 [facility] vers carbonate 3-19 tablet by ity o f (CALCIUM 00:00: mouth in [place] 500) 500 mg 00 the Medical calcium morning. Branch (1,250 mg) tablet ergocalcife 2023-0 Yes [id number] Take 1 [facility] rol, 3-19 capsule by ity of vitamin d2, 00:00: mouth [place] 1,250 mcg 00 weekly. Medical (50,000 Branch unit) capsule calcium 2023-0 Yes [id number] 500mg Take 1 [facility] vers carbonate 3-19 tablet by ity o f (CALCIUM 00:00: mouth in [place] 500) 500 mg 00 the Medical calcium morning. Branch (1,250 mg) tablet ergocalcife 2023-0 Yes [id number] Take 1 [facility] rol, 3-19 capsule by ity of vitamin d2, 00:00: mouth [place] 1,250 mcg 00 weekly. Medical (50,000 Branch unit) capsule calcium 2023-0 Yes [id number] 500mg Take 1 [facility] vers carbonate 3-19 tablet by ity o f (CALCIUM 00:00: mouth in [place] 500) 500 mg 00 the Medical calcium morning. Branch (1,250 mg) tablet ergocalcife 2023-0 Yes [id number] Take 1 [facility] rol, 3-19 capsule by ity of vitamin d2, 00:00: mouth [place] 1,250 mcg 00 weekly. Medical (50,000 Branch unit) capsule calcium 2023-0 Yes [id number] 500mg Take 1 [facility] vers carbonate 3-19 tablet by ity o f (CALCIUM 00:00: mouth in [place] 500) 500 mg 00 the Medical calcium morning. Branch (1,250 mg) tablet ergocalcife 2023-0 Yes [id number] Take 1 [facility] rol, 3-19 capsule by ity of vitamin d2, 00:00: mouth [place] 1,250 mcg 00 weekly. Medical (50,000 Branch unit) capsule calcium 2023-0 Yes [id number] 500mg Take 1 [facility] vers carbonate 3-19 tablet by ity o f (CALCIUM 00:00: mouth in [place] 500) 500 mg 00 the Medical calcium morning. Branch (1,250 mg) tablet ergocalcife 2023-0 Yes [id number] Take 1 [facility] rol, 3-19 capsule by ity of vitamin d2, 00:00: mouth [place] 1,250 mcg 00 weekly. Medical (50,000 Branch unit) capsule calcium 2023-0 Yes [id number] 500mg Take 1 [facility] vers carbonate 3-19 tablet by ity o f (CALCIUM 00:00: mouth in [place] 500) 500 mg 00 the Medical calcium morning. Branch (1,250 mg) tablet ergocalcife 2023-0 Yes [id number] Take 1 [facility] rol, 3-19 capsule by ity of vitamin d2, 00:00: mouth [place] 1,250 mcg 00 weekly. Medical (50,000 Branch unit) capsule calcium 2023-0 Yes [id number] 500mg Take 1 [facility] vers carbonate 3-19 tablet by ity o f (CALCIUM 00:00: mouth in [place] 500) 500 mg 00 the Medical calcium morning. Branch (1,250 mg) tablet ergocalcife 2023-0 Yes [id number] Take 1 [facility] rol, 3-19 capsule by ity of vitamin d2, 00:00: mouth [place] 1,250 mcg 00 weekly. Medical (50,000 Branch unit) capsule calcium 2023-0 Yes [id number] 500mg Take 1 [facility] vers carbonate 3-19 tablet by ity o f (CALCIUM 00:00: mouth in [place] 500) 500 mg 00 the Medical calcium morning. Branch (1,250 mg) tablet ergocalcife 2023-0 Yes [id number] Take 1 [facility] rol, 3-19 capsule by ity of vitamin d2, 00:00: mouth [place] 1,250 mcg 00 weekly. Medical (50,000 Branch unit) capsule calcium 2023-0 Yes [id number] 500mg Take 1 [facility] vers carbonate 3-19 tablet by ity o f (CALCIUM 00:00: mouth in [place] 500) 500 mg 00 the Medical calcium morning. Branch (1,250 mg) tablet ergocalcife 2023-0 Yes [id number] Take 1 [facility] rol, 3-19 capsule by ity of vitamin d2, 00:00: mouth [place] 1,250 mcg 00 weekly. Medical (50,000 Branch unit) capsule calcium 2023-0 Yes [id number] 500mg Take 1 [facility] vers carbonate 3-19 tablet by ity o f (CALCIUM 00:00: mouth in [place] 500) 500 mg 00 the Medical calcium morning. Branch (1,250 mg) tablet ergocalcife 2023-0 Yes [id number] Take 1 [facility] rol, 3-19 capsule by ity of vitamin d2, 00:00: mouth [place] 1,250 mcg 00 weekly. Medical (50,000 Branch unit) capsule calcium 2023-0 Yes [id number] 500mg Take 1 [facility] vers carbonate 3-19 tablet by ity o f (CALCIUM 00:00: mouth in [place] 500) 500 mg 00 the Medical calcium morning. Branch (1,250 mg) tablet ergocalcife 2023-0 Yes [id number] Take 1 [facility] rol, 3-19 capsule by ity of vitamin d2, 00:00: mouth [place] 1,250 mcg 00 weekly. Medical (50,000 Branch unit) capsule calcium 2023-0 Yes [id number] 500mg Take 1 [facility] vers carbonate 3-19 tablet by ity o f (CALCIUM 00:00: mouth in [place] 500) 500 mg 00 the Medical calcium morning. Branch (1,250 mg) tablet ergocalcife 2023-0 Yes [id number] Take 1 [facility] rol, 3-19 capsule by ity of vitamin d2, 00:00: mouth [place] 1,250 mcg 00 weekly. Medical (50,000 Branch unit) capsule calcium 2023-0 Yes [id number] 500mg Take 1 [facility] vers carbonate 3-19 tablet by ity o f (CALCIUM 00:00: mouth in [place] 500) 500 mg 00 the Medical calcium morning. Branch (1,250 mg) tablet ergocalcife 2023-0 Yes [id number] Take 1 [facility] rol, 3-19 capsule by ity of vitamin d2, 00:00: mouth [place] 1,250 mcg 00 weekly. Medical (50,000 Branch unit) capsule calcium 2023-0 Yes [id number] 500mg Take 1 [facility] vers carbonate 3-19 tablet by ity o f (CALCIUM 00:00: mouth in [place] 500) 500 mg 00 the Medical calcium morning. Branch (1,250 mg) tablet ergocalcife 2023-0 Yes [id number] Take 1 [facility] rol, 3-19 capsule by ity of vitamin d2, 00:00: mouth [place] 1,250 mcg 00 weekly. Medical (50,000 Branch unit) capsule calcium 2023-0 Yes [id number] 500mg Take 1 [facility] vers carbonate 3-19 tablet by ity o f (CALCIUM 00:00: mouth in [place] 500) 500 mg 00 the Medical calcium morning. Branch (1,250 mg) tablet ergocalcife 2023-0 Yes [id number] Take 1 [facility] rol, 3-19 capsule by ity of vitamin d2, 00:00: mouth [place] 1,250 mcg 00 weekly. Medical (50,000 Branch unit) capsule calcium 2023-0 Yes [id number] 500mg Take 1 [facility] vers carbonate 3-19 tablet by ity o f (CALCIUM 00:00: mouth in [place] 500) 500 mg 00 the Medical calcium morning. Branch (1,250 mg) tablet ergocalcife 2023-0 Yes [id number] Take 1 [facility] rol, 3-19 capsule by ity of vitamin d2, 00:00: mouth [place] 1,250 mcg 00 weekly. Medical (50,000 Branch unit) capsule calcium 2023-0 Yes [id number] 500mg Take 1 [facility] vers carbonate 3-19 tablet by ity o f (CALCIUM 00:00: mouth in [place] 500) 500 mg 00 the Medical calcium morning. Branch (1,250 mg) tablet ergocalcife 2023-0 Yes [id number] Take 1 [facility] rol, 3-19 capsule by ity of vitamin d2, 00:00: mouth [place] 1,250 mcg 00 weekly. Medical (50,000 Branch unit) capsule calcium 2023-0 Yes [id number] 500mg Take 1 [facility] vers carbonate 3-19 tablet by ity o f (CALCIUM 00:00: mouth in [place] 500) 500 mg 00 the Medical calcium morning. Branch (1,250 mg) tablet ergocalcife 2023-0 Yes [id number] Take 1 [facility] rol, 3-19 capsule by ity of vitamin d2, 00:00: mouth [place] 1,250 mcg 00 weekly. Medical (50,000 Branch unit) capsule calcium 2023-0 Yes [id number] 500mg Take 1 [facility] vers carbonate 3-19 tablet by ity o f (CALCIUM 00:00: mouth in [place] 500) 500 mg 00 the Medical calcium morning. Branch (1,250 mg) tablet ergocalcife 2023-0 Yes [id number] Take 1 [facility] rol, 3-19 capsule by ity of vitamin d2, 00:00: mouth [place] 1,250 mcg 00 weekly. Medical (50,000 Branch unit) capsule calcium 2023-0 Yes [id number] 500mg Take 1 [facility] vers carbonate 3-19 tablet by ity o f (CALCIUM 00:00: mouth in [place] 500) 500 mg 00 the Medical calcium morning. Branch (1,250 mg) tablet ergocalcife 2023-0 Yes [id number] Take 1 [facility] rol, 3-19 capsule by ity of vitamin d2, 00:00: mouth [place] 1,250 mcg 00 weekly. Medical (50,000 Branch unit) capsule calcium 2023-0 Yes [id number] 500mg Take 1 [facility] vers carbonate 3-19 tablet by ity o f (CALCIUM 00:00: mouth in [place] 500) 500 mg 00 the Medical calcium morning. Branch (1,250 mg) tablet ergocalcife 2023-0 Yes [id number] Take 1 [facility] rol, 3-19 capsule by ity of vitamin d2, 00:00: mouth [place] 1,250 mcg 00 weekly. Medical (50,000 Branch unit) capsule calcium 2023-0 Yes [id number] 500mg Take 1 [facility] vers carbonate 3-19 tablet by ity o f (CALCIUM 00:00: mouth in [place] 500) 500 mg 00 the Medical calcium morning. Branch (1,250 mg) tablet ergocalcife 2023-0 Yes [id number] Take 1 [facility] rol, 3-19 capsule by ity of vitamin d2, 00:00: mouth [place] 1,250 mcg 00 weekly. Medical (50,000 Branch unit) capsule calcium 2023-0 Yes [id number] 500mg Take 1 [facility] vers carbonate 3-19 tablet by ity o f (CALCIUM 00:00: mouth in [place] 500) 500 mg 00 the Medical calcium morning. Branch (1,250 mg) tablet ergocalcife 2023-0 Yes [id number] Take 1 [facility] rol, 3-19 capsule by ity of vitamin d2, 00:00: mouth [place] 1,250 mcg 00 weekly. Medical (50,000 Branch unit) capsule calcium 2023-0 Yes [id number] 500mg Take 1 [facility] vers carbonate 3-19 tablet by ity o f (CALCIUM 00:00: mouth in [place] 500) 500 mg 00 the Medical calcium morning. Branch (1,250 mg) tablet ergocalcife 2023-0 Yes [id number] Take 1 [facility] rol, 3-19 capsule by ity of vitamin d2, 00:00: mouth [place] 1,250 mcg 00 weekly. Medical (50,000 Branch unit) capsule calcium 2023-0 Yes [id number] 500mg Take 1 [facility] vers carbonate 3-19 tablet by ity o f (CALCIUM 00:00: mouth in [place] 500) 500 mg 00 the Medical calcium morning. Branch (1,250 mg) tablet ergocalcife 2023-0 Yes [id number] Take 1 [facility] rol, 3-19 capsule by ity of vitamin d2, 00:00: mouth [place] 1,250 mcg 00 weekly. Medical (50,000 Branch unit) capsule calcium 2023-0 Yes [id number] 500mg Take 1 [facility] vers carbonate 3-19 tablet by ity o f (CALCIUM 00:00: mouth in [place] 500) 500 mg 00 the Medical calcium morning. Branch (1,250 mg) tablet ergocalcife 2023-0 Yes [id number] Take 1 [facility] rol, 3-19 capsule by ity of vitamin d2, 00:00: mouth [place] 1,250 mcg 00 weekly. Medical (50,000 Branch unit) capsule calcium 2023-0 Yes [id number] 500mg Take 1 [facility] vers carbonate 3-19 tablet by ity o f (CALCIUM 00:00: mouth in [place] 500) 500 mg 00 the Medical calcium morning. Branch (1,250 mg) tablet ergocalcife 2023-0 Yes [id number] Take 1 [facility] rol, 3-19 capsule by ity of vitamin d2, 00:00: mouth [place] 1,250 mcg 00 weekly. Medical (50,000 Branch unit) capsule calcium 2023-0 Yes [id number] 500mg Take 1 [facility] vers carbonate 3-19 tablet by ity o f (CALCIUM 00:00: mouth in [place] 500) 500 mg 00 the Medical calcium morning. Branch (1,250 mg) tablet ergocalcife 2023-0 Yes [id number] Take 1 [facility] rol, 3-19 capsule by ity of vitamin d2, 00:00: mouth [place] 1,250 mcg 00 weekly. Medical (50,000 Branch unit) capsule calcium 2023-0 Yes [id number] 500mg Take 1 [facility] vers carbonate 3-19 tablet by ity o f (CALCIUM 00:00: mouth in [place] 500) 500 mg 00 the Medical calcium morning. Branch (1,250 mg) tablet ergocalcife 2023-0 Yes [id number] Take 1 [facility] rol, 3-19 capsule by ity of vitamin d2, 00:00: mouth [place] 1,250 mcg 00 weekly. Medical (50,000 Branch unit) capsule calcium 2023-0 Yes [id number] 500mg Take 1 [facility] vers carbonate 3-19 tablet by ity o f (CALCIUM 00:00: mouth in [place] 500) 500 mg 00 the Medical calcium morning. Branch (1,250 mg) tablet ergocalcife 2023-0 Yes [id number] Take 1 [facility] rol, 3-19 capsule by ity of vitamin d2, 00:00: mouth [place] 1,250 mcg 00 weekly. Medical (50,000 Branch unit) capsule calcium 2023-0 Yes [id number] 500mg Take 1 [facility] vers carbonate 3-19 tablet by ity o f (CALCIUM 00:00: mouth in [place] 500) 500 mg 00 the Medical calcium morning. Branch (1,250 mg) tablet ergocalcife 2023-0 Yes [id number] Take 1 [facility] rol, 3-19 capsule by ity of vitamin d2, 00:00: mouth [place] 1,250 mcg 00 weekly. Medical (50,000 Branch unit) capsule calcium 2023-0 Yes [id number] 500mg Take 1 [facility] vers carbonate 3-19 tablet by ity o f (CALCIUM 00:00: mouth in [place] 500) 500 mg 00 the Medical calcium morning. Branch (1,250 mg) tablet ergocalcife 2023-0 Yes [id number] Take 1 [facility] rol, 3-19 capsule by ity of vitamin d2, 00:00: mouth [place] 1,250 mcg 00 weekly. Medical (50,000 Branch unit) capsule calcium 2023-0 Yes [id number] 500mg Take 1 [facility] vers carbonate 3-19 tablet by ity o f (CALCIUM 00:00: mouth in [place] 500) 500 mg 00 the Medical calcium morning. Branch (1,250 mg) tablet ergocalcife 2023-0 Yes [id number] Take 1 [facility] rol, 3-19 capsule by ity of vitamin d2, 00:00: mouth [place] 1,250 mcg 00 weekly. Medical (50,000 Branch unit) capsule calcium 2023-0 Yes [id number] 500mg Take 1 [facility] vers carbonate 3-19 tablet by ity o f (CALCIUM 00:00: mouth in [place] 500) 500 mg 00 the Medical calcium morning. Branch (1,250 mg) tablet ergocalcife 2023-0 Yes [id number] Take 1 [facility] rol, 3-19 capsule by ity of vitamin d2, 00:00: mouth [place] 1,250 mcg 00 weekly. Medical (50,000 Branch unit) capsule calcium 2023-0 Yes [id number] 500mg Take 1 [facility] vers carbonate 3-19 tablet by ity o f (CALCIUM 00:00: mouth in [place] 500) 500 mg 00 the Medical calcium morning. Branch (1,250 mg) tablet ergocalcife 2023-0 Yes [id number] Take 1 [facility] rol, 3-19 capsule by ity of vitamin d2, 00:00: mouth [place] 1,250 mcg 00 weekly. Medical (50,000 Branch unit) capsule calcium 2023-0 Yes [id number] 500mg Take 1 [facility] vers carbonate 3-19 tablet by ity o f (CALCIUM 00:00: mouth in [place] 500) 500 mg 00 the Medical calcium morning. Branch (1,250 mg) tablet ergocalcife 2023-0 Yes [id number] Take 1 [facility] rol, 3-19 capsule by ity of vitamin d2, 00:00: mouth [place] 1,250 mcg 00 weekly. Medical (50,000 Branch unit) capsule calcium 2023-0 Yes [id number] 500mg Take 1 [facility] vers carbonate 3-19 tablet by ity o f (CALCIUM 00:00: mouth in [place] 500) 500 mg 00 the Medical calcium morning. Branch (1,250 mg) tablet ergocalcife 2023-0 Yes [id number] Take 1 [facility] rol, 3-19 capsule by ity of vitamin d2, 00:00: mouth [place] 1,250 mcg 00 weekly. Medical (50,000 Branch unit) capsule calcium 2023-0 Yes [id number] 500mg Take 1 [facility] vers carbonate 3-19 tablet by ity o f (CALCIUM 00:00: mouth in [place] 500) 500 mg 00 the Medical calcium morning. Branch (1,250 mg) tablet ergocalcife 2023-0 Yes [id number] Take 1 [facility] rol, 3-19 capsule by ity of vitamin d2, 00:00: mouth [place] 1,250 mcg 00 weekly. Medical (50,000 Branch unit) capsule calcium 2023-0 Yes [id number] 500mg Take 1 [facility] vers carbonate 3-19 tablet by ity o f (CALCIUM 00:00: mouth in [place] 500) 500 mg 00 the Medical calcium morning. Branch (1,250 mg) tablet ergocalcife 2023-0 Yes [id number] Take 1 [facility] rol, 3-19 capsule by ity of vitamin d2, 00:00: mouth [place] 1,250 mcg 00 weekly. Medical (50,000 Branch unit) capsule calcium 2023-0 Yes [id number] 500mg Take 1 [facility] vers carbonate 3-19 tablet by ity o f (CALCIUM 00:00: mouth in [place] 500) 500 mg 00 the Medical calcium morning. Branch (1,250 mg) tablet ergocalcife 2023-0 Yes [id number] Take 1 [facility] rol, 3-19 capsule by ity of vitamin d2, 00:00: mouth [place] 1,250 mcg 00 weekly. Medical (50,000 Branch unit) capsule calcium 2023-0 Yes [id number] 500mg Take 1 [facility] vers carbonate 3-19 tablet by ity o f (CALCIUM 00:00: mouth in [place] 500) 500 mg 00 the Medical calcium morning. Branch (1,250 mg) tablet ergocalcife 2023-0 Yes [id number] Take 1 [facility] rol, 3-19 capsule by ity of vitamin d2, 00:00: mouth [place] 1,250 mcg 00 weekly. Medical (50,000 Branch unit) capsule calcium 2023-0 Yes [id number] 500mg Take 1 [facility] vers carbonate 3-19 tablet by ity o f (CALCIUM 00:00: mouth in [place] 500) 500 mg 00 the Medical calcium morning. Branch (1,250 mg) tablet ergocalcife 2023-0 Yes [id number] Take 1 [facility] rol, 3-19 capsule by ity of vitamin d2, 00:00: mouth [place] 1,250 mcg 00 weekly. Medical (50,000 Branch unit) capsule calcium 2023-0 Yes [id number] 500mg Take 1 [facility] vers carbonate 3-19 tablet by ity o f (CALCIUM 00:00: mouth in [place] 500) 500 mg 00 the Medical calcium morning. Branch (1,250 mg) tablet ergocalcife 2023-0 Yes [id number] Take 1 [facility] rol, 3-19 capsule by ity of vitamin d2, 00:00: mouth [place] 1,250 mcg 00 weekly. Medical (50,000 Branch unit) capsule calcium 2023-0 Yes [id number] 500mg Take 1 [facility] vers carbonate 3-19 tablet by ity o f (CALCIUM 00:00: mouth in [place] 500) 500 mg 00 the Medical calcium morning. Branch (1,250 mg) tablet ergocalcife 2023-0 Yes [id number] Take 1 [facility] rol, 3-19 capsule by ity of vitamin d2, 00:00: mouth [place] 1,250 mcg 00 weekly. Medical (50,000 Branch unit) capsule calcium 2023-0 Yes [id number] 500mg Take 1 [facility] vers carbonate 3-19 tablet by ity o f (CALCIUM 00:00: mouth in [place] 500) 500 mg 00 the Medical calcium morning. Branch (1,250 mg) tablet ergocalcife 2023-0 Yes [id number] Take 1 [facility] rol, 3-19 capsule by ity of vitamin d2, 00:00: mouth [place] 1,250 mcg 00 weekly. Medical (50,000 Branch unit) capsule calcium 2023-0 Yes [id number] 500mg Take 1 [facility] vers carbonate 3-19 tablet by ity o f (CALCIUM 00:00: mouth in [place] 500) 500 mg 00 the Medical calcium morning. Branch (1,250 mg) tablet ergocalcife 2023-0 Yes [id number] Take 1 [facility] rol, 3-19 capsule by ity of vitamin d2, 00:00: mouth [place] 1,250 mcg 00 weekly. Medical (50,000 Branch unit) capsule calcium 2023-0 Yes [id number] 500mg Take 1 [facility] vers carbonate 3-19 tablet by ity o f (CALCIUM 00:00: mouth in [place] 500) 500 mg 00 the Medical calcium morning. Branch (1,250 mg) tablet ergocalcife 2023-0 Yes [id number] Take 1 [facility] rol, 3-19 capsule by ity of vitamin d2, 00:00: mouth [place] 1,250 mcg 00 weekly. Medical (50,000 Branch unit) capsule calcium 2023-0 Yes [id number] 500mg Take 1 [facility] vers carbonate 3-19 tablet by ity o f (CALCIUM 00:00: mouth in [place] 500) 500 mg 00 the Medical calcium morning. Branch (1,250 mg) tablet calcium 2023-0 Yes [id number] 500mg Take 1 [facility] vers carbonate 3-19 tablet by ity o f (CALCIUM 00:00: mouth in [place] 500) 500 mg 00 the Medical calcium morning. Branch (1,250 mg) tablet calcium 2023-0 Yes [id number] 500mg Take 1 [facility] vers carbonate 3-19 tablet by ity o f (CALCIUM 00:00: mouth in [place] 500) 500 mg 00 the Medical calcium morning. Branch (1,250 mg) tablet calcium 2023-0 Yes [id number] 500mg Take 1 [facility] vers carbonate 3-19 tablet by ity o f (CALCIUM 00:00: mouth in [place] 500) 500 mg 00 the Medical calcium morning. Branch (1,250 mg) tablet calcium 2023-0 Yes [id number] 500mg Take 1 [facility] vers carbonate 3-19 tablet by [facility]y o f (CALCIUM 00:00: mouth in [place] 500) 500 mg 00 the Medical calcium morning. Branch (1,250 mg) tablet calcium 2023-0 Yes [id number] 500mg Take 1 [facility] vers carbonate 3-19 tablet by ity o f (CALCIUM 00:00: mouth in [place] 500) 500 mg 00 the Medical calcium morning. Branch (1,250 mg) tablet ergocalcife 2023-0 2023- No [id number] Take 1 [facility] rol, 01-20 capsule by ity of vitamin d2, 00:00: 00:[place] 1,250 mcg 00 :00 weekly. Medical (50,000 Branch unit) capsule ergocalcife 2023-0 2023- No [id number] Take 1 [facility] rol, 01-20 capsule by ity of vitamin d2, 00:00: 00:00 mouth [place] 1,250 mcg 00 :00 weekly. Medical (50,000 Branch unit) capsule ergocalcife 2023-0 2023- No [id number] Take 1 [facility] rol, -23 07- capsule by ity of vitamin d2, 00:00: 00:00 mouth [place] 1,250 mcg 00 :00 weekly. Medical (50,000 Branch unit) capsule ergocalcife 2023-0 2023- No [id number] Take 1 [facility] rol, -07-17 capsule by ity of vitamin d2, 00:00: 00:00 mouth [place] 1,250 mcg 00 :00 weekly. Medical (50,000 Branch unit) capsule ALBUTEROL 2023-0 Yes [id number] INHALE ONE Univers 2.5 mg /3 3-01 VIAL VIA ity of mL (0.083 00:00: NEBULIZER [place] %) 00 EVERY 4 Medical nebulizer HOURS Branch solution NEEDED FOR WHEEZING OR SHORTNESS OF BREATH ALBUTEROL 2022-0 Yes [id number] INHALE ONE [facility] 2.5 mg /3 3-01 VIAL VIA ity of mL (0.083 00:00: NEBULIZER [place] %) 00 EVERY 4 Medical nebulizer HOURS Branch solution NEEDED FOR WHEEZING OR SHORTNESS OF BREATH ALBUTEROL 2022-0 Yes [id number] INHALE ONE [facility] 2.5 mg /3 3-01 VIAL VIA ity of mL (0.083 00:00: NEBULIZER [place] %) 00 EVERY 4 Medical nebulizer HOURS Branch solution NEEDED FOR WHEEZING OR SHORTNESS OF BREATH ALBUTEROL 2022-0 Yes [id number] INHALE ONE [facility] 2.5 mg /3 3-01 VIAL VIA ity of mL (0.083 00:00: NEBULIZER [place] %) 00 EVERY 4 Medical nebulizer HOURS Branch solution NEEDED FOR WHEEZING OR SHORTNESS OF BREATH ALBUTEROL 2022-0 Yes [id number] INHALE ONE [facility] 2.5 mg /3 3-01 VIAL VIA ity of mL (0.083 00:00: NEBULIZER [place] %) 00 EVERY 4 Medical nebulizer HOURS Branch solution NEEDED FOR WHEEZING OR SHORTNESS OF BREATH ALBUTEROL 2022-0 Yes [id number] INHALE ONE [facility] 2.5 mg /3 3-01 VIAL VIA ity of mL (0.083 00:00: NEBULIZER [place] %) 00 EVERY 4 Medical nebulizer HOURS Branch solution NEEDED FOR WHEEZING OR SHORTNESS OF BREATH ALBUTEROL 2022-0 Yes [id number] INHALE ONE [facility] 2.5 mg /3 3-01 VIAL VIA ity of mL (0.083 00:00: NEBULIZER [place] %) 00 EVERY 4 Medical nebulizer HOURS Branch solution NEEDED FOR WHEEZING OR SHORTNESS OF BREATH ALBUTEROL 2022-0 Yes [id number] INHALE ONE [facility] 2.5 mg /3 3-01 VIAL VIA ity of mL (0.083 00:00: NEBULIZER [place] %) 00 EVERY 4 Medical nebulizer HOURS Branch solution NEEDED FOR WHEEZING OR SHORTNESS OF BREATH ALBUTEROL 2022-0 Yes [id number] INHALE ONE [facility] 2.5 mg /3 3-01 VIAL VIA ity of mL (0.083 00:00: NEBULIZER [place] %) 00 EVERY 4 Medical nebulizer HOURS Branch solution NEEDED FOR WHEEZING OR SHORTNESS OF BREATH ALBUTEROL 2022-0 Yes [id number] INHALE ONE [facility] 2.5 mg /3 3-01 VIAL VIA ity of mL (0.083 00:00: NEBULIZER [place] %) 00 EVERY 4 Medical nebulizer HOURS Branch solution NEEDED FOR WHEEZING OR SHORTNESS OF BREATH ALBUTEROL 2022-0 Yes [id number] INHALE ONE [facility] 2.5 mg /3 3-01 VIAL VIA ity of mL (0.083 00:00: NEBULIZER [place] %) 00 EVERY 4 Medical nebulizer HOURS Branch solution NEEDED FOR WHEEZING OR SHORTNESS OF BREATH ALBUTEROL 2022-0 Yes [id number] INHALE ONE [facility] 2.5 mg /3 3-01 VIAL VIA ity of mL (0.083 00:00: NEBULIZER [place] %) 00 EVERY 4 Medical nebulizer HOURS Branch solution NEEDED FOR WHEEZING OR SHORTNESS OF BREATH ALBUTEROL 2022-0 Yes [id number] INHALE ONE [facility] 2.5 mg /3 3-01 VIAL VIA ity of mL (0.083 00:00: NEBULIZER [place] %) 00 EVERY 4 Medical nebulizer HOURS Branch solution NEEDED FOR WHEEZING OR SHORTNESS OF BREATH ALBUTEROL 2022-0 Yes [id number] INHALE ONE [facility] 2.5 mg /3 3-01 VIAL VIA ity of mL (0.083 00:00: NEBULIZER [place] %) 00 EVERY 4 Medical nebulizer HOURS Branch solution NEEDED FOR WHEEZING OR SHORTNESS OF BREATH ALBUTEROL 2022-0 Yes [id number] INHALE ONE [facility] 2.5 mg /3 3-01 VIAL VIA ity of mL (0.083 00:00: NEBULIZER [place] %) 00 EVERY 4 Medical nebulizer HOURS Branch solution NEEDED FOR WHEEZING OR SHORTNESS OF BREATH ALBUTEROL 2022-0 Yes [id number] INHALE ONE [facility] 2.5 mg /3 3-01 VIAL VIA ity of mL (0.083 00:00: NEBULIZER [place] %) 00 EVERY 4 Medical nebulizer HOURS Branch solution NEEDED FOR WHEEZING OR SHORTNESS OF BREATH ALBUTEROL 2022-0 Yes [id number] INHALE ONE [facility] 2.5 mg /3 3-01 VIAL VIA ity of mL (0.083 00:00: NEBULIZER [place] %) 00 EVERY 4 Medical nebulizer HOURS Branch solution NEEDED FOR WHEEZING OR SHORTNESS OF BREATH ALBUTEROL 2022-0 Yes [id number] INHALE ONE [facility] 2.5 mg /3 3-01 VIAL VIA ity of mL (0.083 00:00: NEBULIZER [place] %) 00 EVERY 4 Medical nebulizer HOURS Branch solution NEEDED FOR WHEEZING OR SHORTNESS OF BREATH ALBUTEROL 2022-0 Yes [id number] INHALE ONE [facility] 2.5 mg /3 3-01 VIAL VIA ity of mL (0.083 00:00: NEBULIZER [place] %) 00 EVERY 4 Medical nebulizer HOURS Branch solution NEEDED FOR WHEEZING OR SHORTNESS OF BREATH ALBUTEROL 2022-0 Yes [id number] INHALE ONE [facility] 2.5 mg /3 3-01 VIAL VIA ity of mL (0.083 00:00: NEBULIZER [place] %) 00 EVERY 4 Medical nebulizer HOURS Branch solution NEEDED FOR WHEEZING OR SHORTNESS OF BREATH ALBUTEROL 2022-0 Yes [id number] INHALE ONE [facility] 2.5 mg /3 3-01 VIAL VIA ity of mL (0.083 00:00: NEBULIZER [place] %) 00 EVERY 4 Medical nebulizer HOURS Branch solution NEEDED FOR WHEEZING OR SHORTNESS OF BREATH ALBUTEROL 2022-0 Yes [id number] INHALE ONE [facility] 2.5 mg /3 3-01 VIAL VIA ity of mL (0.083 00:00: NEBULIZER [place] %) 00 EVERY 4 Medical nebulizer HOURS Branch solution NEEDED FOR WHEEZING OR SHORTNESS OF BREATH ALBUTEROL 2022-0 Yes [id number] INHALE ONE [facility] 2.5 mg /3 3-01 VIAL VIA ity of mL (0.083 00:00: NEBULIZER [place] %) 00 EVERY 4 Medical nebulizer HOURS Branch solution NEEDED FOR WHEEZING OR SHORTNESS OF BREATH ALBUTEROL 2022-0 Yes [id number] INHALE ONE [facility] 2.5 mg /3 3-01 VIAL VIA ity of mL (0.083 00:00: NEBULIZER [place] %) 00 EVERY 4 Medical nebulizer HOURS Branch solution NEEDED FOR WHEEZING OR SHORTNESS OF BREATH ALBUTEROL 2022-0 Yes [id number] INHALE ONE [facility] 2.5 mg /3 01-02 VIAL VIA ity of mL (0.083 00:00: NEBULIZER [place] %) 00 EVERY 4 Medical nebulizer HOURS Branch solution NEEDED FOR WHEEZING OR SHORTNESS OF BREATH ALBUTEROL 2022-0 Yes [id number] INHALE ONE [facility] 2.5 mg /3 01-02 VIAL VIA ity of mL (0.083 00:00: NEBULIZER [place] %) 00 EVERY 4 Medical nebulizer HOURS Branch solution NEEDED FOR WHEEZING OR SHORTNESS OF BREATH ALBUTEROL 2022-0 Yes [id number] INHALE ONE [facility] 2.5 mg /3 01-02 VIAL VIA ity of mL (0.083 00:00: NEBULIZER [place] %) 00 EVERY 4 Medical nebulizer HOURS Branch solution NEEDED FOR WHEEZING OR SHORTNESS OF BREATH ALBUTEROL 2022-0 Yes [id number] INHALE ONE [facility] 2.5 mg /3 01-02 VIAL VIA ity of mL (0.083 00:00: NEBULIZER [place] %) 00 EVERY 4 Medical nebulizer HOURS Branch solution NEEDED FOR WHEEZING OR SHORTNESS OF BREATH ALBUTEROL 2022-0 Yes [id number] INHALE ONE [facility] 2.5 mg /3 01-02 VIAL VIA ity of mL (0.083 00:00: NEBULIZER [place] %) 00 EVERY 4 Medical nebulizer HOURS Branch solution NEEDED FOR WHEEZING OR SHORTNESS OF BREATH ALBUTEROL 2022-0 Yes [id number] INHALE ONE [facility] 2.5 mg /3 01-02 VIAL VIA ity of mL (0.083 00:00: NEBULIZER [place] %) 00 EVERY 4 Medical nebulizer HOURS Branch solution NEEDED FOR WHEEZING OR SHORTNESS OF BREATH ALBUTEROL 2022-0 2022- No [id number] INHALE ONE [facility] 2.5 mg /3 304-26 VIAL VIA ity o f mL (0.083 00:00: 00:00 NE[place]ULIZER [place] %) 00 :00 EVERY 4 Medical nebulizer HOURS Branch solution NEEDED FOR WHEEZING OR SHORTNESS OF BREATH ALBUTEROL 0 2022- No [id number] INHALE ONE [facility] 2.5 mg /3 01-02 VIAL VIA ity o f mL (0.083 00:00: 00:00 NE[place]ULIZER [place] %) 00 :00 EVERY 4 Medical nebulizer HOURS Branch solution NEEDED FOR WHEEZING OR SHORTNESS OF BREATH ALBUTEROL 0 2022- No [id number] INHALE ONE [facility] 2.5 mg /3 01-02 VIAL VIA ity o f mL (0.083 00:00: 00:00 NE[place]ULIZER [place] %) 00 :00 EVERY 4 Medical nebulizer HOURS Branch solution NEEDED FOR WHEEZING OR SHORTNESS OF BREATH GLIMEPIRIDE 2022-0 Yes [id number] TAKE 1 [facility] 2 mg tablet 1-24 TABLET BY ity of 00:00: MOUTH IN [place] [address] THE Medical MORNING Branch AND IN THE EVENING METFORMIN 2022-0 Yes [id number] TAKE 1 U nivers 500 mg 1-24 TABLET BY ity of tablet 00:00: MOUTH IN [place] [address] THE Medical MORNING Branch AND IN THE EVENING WITH MEALS GLIMEPIRIDE 2022-0 Yes [id number] TAKE 1 [facility] 2 mg tablet 1-24 TABLET BY ity of 00:00: MOUTH IN [place] THE Medical MORNING Branch AND IN THE EVENING METFORMIN 3-0 Yes [id number] TAKE 1 U nivers 500 mg 1-24 TABLET BY ity of tablet 00:00: MOUTH IN [place] [address] THE Medical MORNING Branch AND IN THE EVENING WITH MEALS GLIMEPIRIDE 2022-0 Yes [id number] TAKE 1 [facility] 2 mg tablet 1-24 TABLET BY ity of 00:00: MOUTH IN [place] [address] THE Medical MORNING Branch AND IN THE EVENING METFORMIN 3-0 Yes [id number] TAKE 1 U nivers 500 mg 1-24 TABLET BY ity of tablet 00:00: MOUTH IN [place] THE Medical MORNING Branch AND IN THE EVENING WITH MEALS GLIMEPIRIDE 2022-0 Yes [id number] TAKE 1 [facility] 2 mg tablet 1-24 TABLET BY ity of 00:00: MOUTH IN [place] [address] THE Medical MORNING Branch AND IN THE EVENING METFORMIN 3-0 Yes [id number] TAKE 1 U nivers 500 mg 1-24 TABLET BY ity of tablet 00:00: MOUTH IN [place] [address] THE Medical MORNING Branch AND IN THE EVENING WITH MEALS GLIMEPIRIDE 2022-0 Yes [id number] TAKE 1 [facility] 2 mg tablet 1-24 TABLET BY ity of 00:00: MOUTH IN [place] 00 THE Medical MORNING Branch AND IN THE EVENING METFORMIN 2022-0 Yes [id number] TAKE 1 U nivers 500 mg 1-24 TABLET BY ity of tablet 00:00: MOUTH IN [place] 00 THE Medical MORNING Branch AND IN THE EVENING WITH MEALS GLIMEPIRIDE 2022-0 Yes [id number] TAKE 1 [facility] 2 mg tablet 1-24 TABLET BY ity of 00:00: MOUTH IN [place] 00 THE Medical MORNING Branch AND IN THE EVENING METFORMIN 2022-0 Yes [id number] TAKE 1 U nivers 500 mg 1-24 TABLET BY ity of tablet 00:00: MOUTH IN [place] 00 THE Medical MORNING Branch AND IN THE EVENING WITH MEALS GLIMEPIRIDE 2022-0 Yes [id number] TAKE 1 [facility] 2 mg tablet 1-24 TABLET BY ity of 00:00: MOUTH IN [place] 00 THE Medical MORNING Branch AND IN THE EVENING METFORMIN 2022-0 Yes [id number] TAKE 1 U nivers 500 mg 1-24 TABLET BY ity of tablet 00:00: MOUTH IN [place] 00 THE Medical MORNING Branch AND IN THE EVENING WITH MEALS GLIMEPIRIDE 2022-0 Yes [id number] TAKE 1 [facility] 2 mg tablet 1-24 TABLET BY ity of 00:00: MOUTH IN [place] 00 THE Medical MORNING Branch AND IN THE EVENING METFORMIN 2022-0 Yes [id number] TAKE 1 U nivers 500 mg 1-24 TABLET BY ity of tablet 00:00: MOUTH IN [place] 00 THE Medical MORNING Branch AND IN THE EVENING WITH MEALS GLIMEPIRIDE 2022-0 Yes [id number] TAKE 1 [facility] 2 mg tablet 1-24 TABLET BY ity of 00:00: MOUTH IN [place] 00 THE Medical MORNING Branch AND IN THE EVENING METFORMIN 2022-0 Yes [id number] TAKE 1 U nivers 500 mg 1-24 TABLET BY ity of tablet 00:00: MOUTH IN [place] [address] THE Medical MORNING Branch AND IN THE EVENING WITH MEALS GLIMEPIRIDE 2022-0 Yes [id number] TAKE 1 [facility] 2 mg tablet 1-24 TABLET BY ity of 00:00: MOUTH IN [place] [address] THE Medical MORNING Branch AND IN THE EVENING METFORMIN 2022-0 Yes [id number] TAKE 1 [facility] nivers 500 mg 1-24 TABLET BY ity of tablet 00:00: MOUTH IN [place] 00 THE Medical MORNING Branch AND IN THE EVENING WITH MEALS GLIMEPIRIDE 2022-0 Yes [id number] TAKE 1 [facility] 2 mg tablet 1-24 TABLET BY ity of 00:00: MOUTH IN [place] [address] THE Medical MORNING Branch AND IN THE EVENING METFORMIN 3-0 Yes [id number] TAKE 1 U nivers 500 mg 1-24 TABLET BY ity of tablet 00:00: MOUTH IN [place] [address] THE Medical MORNING Branch AND IN THE EVENING WITH MEALS GLIMEPIRIDE 2022-0 Yes [id number] TAKE 1 [facility] 2 mg tablet 1-24 TABLET BY ity of 00:00: MOUTH IN [place] [address] THE Medical MORNING Branch AND IN THE EVENING METFORMIN 2022-0 Yes [id number] TAKE 1 U nivers 500 mg 1-24 TABLET BY ity of tablet 00:00: MOUTH IN [place] [address] THE Medical MORNING Branch AND IN THE EVENING WITH MEALS GLIMEPIRIDE 2022-0 Yes [id number] TAKE 1 [facility] 2 mg tablet 1-24 TABLET BY ity of 00:00: MOUTH IN [place] [address] THE Medical MORNING Branch AND IN THE EVENING METFORMIN 3-0 Yes [id number] TAKE 1 U nivers 500 mg 1-24 TABLET BY ity of tablet 00:00: MOUTH IN [place] [address] THE Medical MORNING Branch AND IN THE EVENING WITH MEALS GLIMEPIRIDE 2022-0 Yes [id number] TAKE 1 [facility] 2 mg tablet 1-24 TABLET BY ity of 00:00: MOUTH IN [place] [address] THE Medical MORNING Branch AND IN THE EVENING METFORMIN 3-0 Yes [id number] TAKE 1 U nivers 500 mg 1-24 TABLET BY ity of tablet 00:00: MOUTH IN [place] [address] THE Medical MORNING Branch AND IN THE EVENING WITH MEALS GLIMEPIRIDE 2022-0 Yes [id number] TAKE 1 [facility] 2 mg tablet 1-24 TABLET BY ity of 00:00: MOUTH IN [place] [address] THE Medical MORNING Branch AND IN THE EVENING METFORMIN 3-0 Yes [id number] TAKE 1 [facility] nivers 500 mg 1-24 TABLET BY ity of tablet 00:00: MOUTH IN [place] [address] THE Medical MORNING Branch AND IN THE EVENING WITH MEALS GLIMEPIRIDE 3-0 Yes [id number] TAKE 1 [facility] 2 mg tablet 1-24 TABLET BY ity of 00:00: MOUTH IN [place] 00 THE Medical MORNING Branch AND IN THE EVENING METFORMIN 3-0 Yes [id number] TAKE 1 [facility] nivers 500 mg 1-24 TABLET BY ity of tablet 00:00: MOUTH IN [place] 00 THE Medical MORNING Branch AND IN THE EVENING WITH MEALS GLIMEPIRIDE 2022-0 Yes [id number] TAKE 1 [facility] 2 mg tablet 1-24 TABLET BY ity of 00:00: MOUTH IN [place] 00 THE Medical MORNING Branch AND IN THE EVENING METFORMIN 3-0 Yes [id number] TAKE 1 [facility] nivers 500 mg 1-24 TABLET BY ity of tablet 00:00: MOUTH IN [place] 00 THE Medical MORNING Branch AND IN THE EVENING WITH MEALS GLIMEPIRIDE 2022-0 Yes [id number] TAKE 1 [facility] 2 mg tablet 1-24 TABLET BY ity of 00:00: MOUTH IN [place] 00 THE Medical MORNING Branch AND IN THE EVENING METFORMIN 3-0 Yes [id number] TAKE 1 [facility] nivers 500 mg 1-24 TABLET BY ity of tablet 00:00: MOUTH IN [place] 00 THE Medical MORNING Branch AND IN THE EVENING WITH MEALS GLIMEPIRIDE 3-0 2023- No [id number] TAKE 1 [facility] 2 mg tablet 1-24 05-09 TABLET BY it y of 00:00: 00:00 MOUTH IN [place] 00 :00 THE Medical MORNING Branch AND IN THE EVENING METFORMIN 3-0 2023- No [id number] TAKE 1 [facility] 500 mg 1-24 05-09 TABLET BY ity of tablet 00:00: 00:00 MOUTH IN [place] 00 :00 THE Medical MORNING Branch AND IN THE EVENING WITH MEALS GLIMEPIRIDE 2023-0 2023- No [id number] TAKE 1 [facility] 2 mg tablet 1-24 05-09 TABLET BY it y of 00:00: 00:00 MOUTH IN [place] 00 :00 THE Medical MORNING Branch AND IN THE EVENING METFORMIN 2023-0 2023- No [id number] TAKE 1 [facility] 500 mg 1-24 05-09 TABLET BY ity of tablet 00:00: 00:00 MOUTH IN [place] 00 :00 THE Medical MORNING Branch AND IN THE EVENING WITH MEALS GLIMEPIRIDE 2023-0 2023- No [id number] TAKE 1 [facility] 2 mg tablet 1-24 05-09 TABLET BY it y of 00:00: 00:00 MOUTH IN [place] 00 :00 THE Medical MORNING Branch AND IN THE EVENING METFORMIN 2022-0 2022- No [id number] TAKE 1 [facility] 500 mg 1-24 05-09 TABLET BY ity of tablet 00:00: 00:00 MOUTH IN [place] 00 :00 THE Medical MORNING Branch AND IN THE EVENING WITH MEALS GLIMEPIRIDE 2022-0 2022- No [id number] TAKE 1 [facility] 2 mg tablet 1-24 05-09 TABLET BY it y of 00:00: 00:00 MOUTH IN [place] 00 :00 THE Medical MORNING Branch AND IN THE EVENING METFORMIN 2022-0 2022- No [id number] TAKE 1 [facility] 500 mg 1-24 05-09 TABLET BY ity of tablet 00:00: 00:00 MOUTH IN [place] 00 :00 THE Medical MORNING Branch AND IN THE EVENING WITH MEALS GLIMEPIRIDE 2022-0 2022- No [id number] TAKE 1 [facility] 2 mg tablet 1-24 05-09 TABLET BY it y of 00:00: 00:00 MOUTH IN [place] 00 :00 THE Medical MORNING Branch AND IN THE EVENING METFORMIN 2022-0 2022- No [id number] TAKE 1 [facility] 500 mg 1-24 05-09 TABLET BY ity of tablet 00:00: 00:00 MOUTH IN [place] 00 :00 THE Medical MORNING Branch AND IN THE EVENING WITH MEALS GLIMEPIRIDE 2022-0 2022- No [id number] TAKE 1 [facility] 2 mg tablet 1-24 05-09 TABLET BY it y of 00:00: 00:00 MOUTH IN [place] 00 :00 THE Medical MORNING Branch AND IN THE EVENING METFORMIN 2022-0 2022- No [id number] TAKE 1 [facility] 500 mg 1-24 05-09 TABLET BY ity of tablet 00:00: 00:00 MOUTH IN [place] 00 :00 THE Medical MORNING Branch AND IN THE EVENING WITH MEALS GLIMEPIRIDE 2022-0 2022- No [id number] TAKE 1 [facility] 2 mg tablet 1-24 05-09 TABLET BY it y of 00:00: 00:00 MOUTH IN [place] 00 :00 THE Medical MORNING Branch AND IN THE EVENING METFORMIN 2022-0 2022- No [id number] TAKE 1 [facility] 500 mg 1-24 05-09 TABLET BY ity of tablet 00:00: 00:00 MOUTH IN [place] 00 :00 THE Medical MORNING Branch AND IN THE EVENING WITH MEALS buPROPion 2023-0 Yes [id number] 150mg Take 1 U nivers SR 150 mg 1-05 tablet by ity o f SR tablet 00:00: mouth [place] 00 the Medical morning Branch and 1 tablet in the evening. diclofenac- 2022-0 Yes [id number] 1{tbl} Take 1 [facility] misoprostoL 1-05 tablet by ity of 50-200 00:00: mouth in [place] mg-mcg per 00 the Medical tablet morning Branch and 1 tablet in the evening. buPROPion 2022-0 Yes [id number] 150mg Take 1 U nivers SR 150 mg 1-05 tablet by ity o f SR tablet 00:00: mouth [place] 00 the Medical morning Branch and 1 tablet in the evening. diclofenac- 2022-0 Yes [id number] 1{tbl} Take 1 [facility] misoprostoL 1-05 tablet by ity of 50-200 00:00: mouth in [place] mg-mcg per 00 the Medical tablet morning Branch and 1 tablet in the evening. buPROPion 2022-0 Yes [id number] 150mg Take 1 U nivers SR 150 mg 1-05 tablet by ity o f SR tablet 00:00: mouth [place] 00 the Medical morning Branch and 1 tablet in the evening. diclofenac- 2022-0 Yes [id number] 1{tbl} Take 1 [facility] misoprostoL 1-05 tablet by ity of 50-200 00:00: mouth in [place] mg-mcg per 00 the Medical tablet morning Branch and 1 tablet in the evening. buPROPion 2022-0 Yes [id number] 150mg Take 1 U nivers SR 150 mg 1-05 tablet by ity o f SR tablet 00:00: mouth [place] 00 the Medical morning Branch and 1 tablet in the evening. diclofenac- 2022-0 Yes [id number] 1{tbl} Take 1 [facility] misoprostoL 1-05 tablet by ity of 50-200 00:00: mouth in [place] mg-mcg per 00 the Medical tablet morning Branch and 1 tablet in the evening. buPROPion 2022-0 Yes [id number] 150mg Take 1 [facility] nivers SR 150 mg 1-05 tablet by ity o f SR tablet 00:00: mouth [place] 00 the Medical morning Branch and 1 tablet in the evening. diclofenac- 2022-0 Yes [id number] 1{tbl} Take 1 [facility] misoprostoL 1-05 tablet by ity of 50-200 00:00: mouth in [place] mg-mcg per 00 the Medical tablet morning Branch and 1 tablet in the evening. buPROPion 2022-0 Yes [id number] 150mg Take 1 U nivers SR 150 mg 1-05 tablet by it[facility] o f SR tablet 00:00: mouth [place] 00 the Medical morning Branch and 1 tablet in the evening. diclofenac- 2022-0 Yes [id number] 1{tbl} Take 1 [facility] misoprostoL 1-05 tablet by ity of 50-200 00:00: mouth in [place] mg-mcg per 00 the Medical tablet morning Branch and 1 tablet in the evening. buPROPion 2022-0 Yes [id number] 150mg Take 1 [facility] nivers SR 150 mg 1-05 tablet by it[facility] o f SR tablet 00:00: mouth [place] 00 the Medical morning Branch and 1 tablet in the evening. diclofenac- 2022-0 Yes [id number] 1{tbl} Take 1 [facility] misoprostoL 1-05 tablet by ity of 50-200 00:00: mouth in [place] mg-mcg per 00 the Medical tablet morning Branch and 1 tablet in the evening. buPROPion 2022-0 Yes [id number] 150mg Take 1 [facility] nivers SR 150 mg 1-05 tablet by [facility] o f SR tablet 00:00: mouth [place] 00 the Medical morning Branch and 1 tablet in the evening. diclofenac- 2022-0 Yes [id number] 1{tbl} Take 1 [facility] misoprostoL 1-05 tablet by ity of 50-200 00:00: mouth in [place] mg-mcg per 00 the Medical tablet morning Branch and 1 tablet in the evening. buPROPion 2022-0 Yes [id number] 150mg Take 1 U nivers SR 150 mg 1-05 tablet by it[facility] o f SR tablet 00:00: mouth [place] 00 the Medical morning Branch and 1 tablet in the evening. diclofenac- 2022-0 Yes [id number] 1{tbl} Take 1 [facility] misoprostoL 1-05 tablet by ity of 50-200 00:00: mouth in [place] mg-mcg per 00 the Medical tablet morning Branch and 1 tablet in the evening. buPROPion 2022-0 Yes [id number] 150mg Take 1 [facility] nivers SR 150 mg 1-05 tablet by it[facility] o f SR tablet 00:00: mouth [place] 00 the Medical morning Branch and 1 tablet in the evening. diclofenac- 2022-0 Yes [id number] 1{tbl} Take 1 [facility] misoprostoL 1-05 tablet by ity of 50-200 00:00: mouth in [place] mg-mcg per 00 the Medical tablet morning Branch and 1 tablet in the evening. buPROPion 2022-0 Yes [id number] 150mg Take 1 [facility] nivers SR 150 mg 1-05 tablet by ity o f SR tablet 00:00: mouth [place] 00 the Medical morning Branch and 1 tablet in the evening. diclofenac- 2022-0 Yes [id number] 1{tbl} Take 1 [facility] misoprostoL 1-05 tablet by ity of 50-200 00:00: mouth in [place] mg-mcg per 00 the Medical tablet morning Branch and 1 tablet in the evening. buPROPion 2022-0 Yes [id number] 150mg Take 1 [facility] nivers SR 150 mg 1-05 tablet by ity o f SR tablet 00:00: mouth [place] 00 the Medical morning Branch and 1 tablet in the evening. diclofenac- 2022-0 Yes [id number] 1{tbl} Take 1 [facility] misoprostoL 1-05 tablet by ity of 50-200 00:00: mouth in [place] mg-mcg per 00 the Medical tablet morning Branch and 1 tablet in the evening. buPROPion 2022-0 Yes [id number] 150mg Take 1 [facility] nivers SR 150 mg 1-05 tablet by ity o f SR tablet 00:00: mouth [place] 00 the Medical morning Branch and 1 tablet in the evening. diclofenac- 2022-0 Yes [id number] 1{tbl} Take 1 [facility] misoprostoL 1-05 tablet by ity of 50-200 00:00: mouth in [place] mg-mcg per 00 the Medical tablet morning Branch and 1 tablet in the evening. buPROPion 2022-0 Yes [id number] 150mg Take 1 [facility] nivers SR 150 mg 1-05 tablet by ity o f SR tablet 00:00: mouth [place] 00 the Medical morning Branch and 1 tablet in the evening. diclofenac- 2022-0 Yes [id number] 1{tbl} Take 1 [facility] misoprostoL 1-05 tablet by ity of 50-200 00:00: mouth in [place] mg-mcg per 00 the Medical tablet morning Branch and 1 tablet in the evening. buPROPion 2022-0 Yes [id number] 150mg Take 1 [facility] nivers SR 150 mg 1-05 tablet by ity o f SR tablet 00:00: mouth [place] 00 the Medical morning Branch and 1 tablet in the evening. diclofenac- 2022-0 Yes [id number] 1{tbl} Take 1 [facility] misoprostoL 1-05 tablet by ity of 50-200 00:00: mouth in [place] mg-mcg per 00 the Medical tablet morning Branch and 1 tablet in the evening. buPROPion 2022-0 Yes [id number] 150mg Take 1 [facility] nivers SR 150 mg 1-05 tablet by ity o f SR tablet 00:00: mouth [place] 00 the Medical morning Branch and 1 tablet in the evening. diclofenac- 2022-0 Yes [id number] 1{tbl} Take 1 [facility] misoprostoL 1-05 tablet by ity of 50-200 00:00: mouth in [place] mg-mcg per 00 the Medical tablet morning Branch and 1 tablet in the evening. buPROPion 2022-0 Yes [id number] 150mg Take 1 [facility] nivers SR 150 mg 1-05 tablet by ity o f SR tablet 00:00: mouth [place] 00 the Medical morning Branch and 1 tablet in the evening. diclofenac- 2022-0 Yes [id number] 1{tbl} Take 1 [facility] misoprostoL 1-05 tablet by ity of 50-200 00:00: mouth in [place] mg-mcg per 00 the Medical tablet morning Branch and 1 tablet in the evening. buPROPion 2022-0 Yes [id number] 150mg Take 1 [facility] nivers SR 150 mg 1-05 tablet by ity o f SR tablet 00:00: mouth [place] 00 the Medical morning Branch and 1 tablet in the evening. diclofenac- 2022-0 Yes [id number] 1{tbl} Take 1 [facility] misoprostoL 1-05 tablet by ity of 50-200 00:00: mouth in [place] mg-mcg per 00 the Medical tablet morning Branch and 1 tablet in the evening. buPROPion 2022-0 Yes [id number] 150mg Take 1 [facility] n[facility] SR 150 mg 1-05 tablet by ity o f SR tablet 00:00: mouth [place] 00 the Medical morning Branch and 1 tablet in the evening. diclofenac- 2022-0 Yes [id number] 1{tbl} Take 1 [facility] misoprostoL 1-05 tablet by ity of 50-200 00:00: mouth in [place] mg-mcg per 00 the Medical tablet morning Branch and 1 tablet in the evening. buPROPion 2022-0 Yes [id number] 150mg Take 1 [facility] n[facility] SR 150 mg 1-05 tablet by ity o f SR tablet 00:00: mouth [place] 00 the Medical morning Branch and 1 tablet in the evening. diclofenac- 2022-0 Yes [id number] 1{tbl} Take 1 [facility] misoprostoL 1-05 tablet by ity of 50-200 00:00: mouth in [place] mg-mcg per 00 the Medical tablet morning Branch and 1 tablet in the evening. buPROPion 2022-0 Yes [id number] 150mg Take 1 [facility] n[facility] SR 150 mg 1-05 tablet by ity o f SR tablet 00:00: mouth [place] 00 the Medical morning Branch and 1 tablet in the evening. diclofenac- 2022-0 Yes [id number] 1{tbl} Take 1 [facility] misoprostoL 1-05 tablet by ity of 50-200 00:00: mouth in [place] mg-mcg per 00 the Medical tablet morning Branch and 1 tablet in the evening. buPROPion 2022-0 Yes [id number] 150mg Take 1 [facility] n[facility] SR 150 mg 1-05 tablet by ity o f SR tablet 00:00: mouth [place] 00 the Medical morning Branch and 1 tablet in the evening. diclofenac- 2022-0 Yes [id number] 1{tbl} Take 1 [facility] misoprostoL 1-05 tablet by ity of 50-200 00:00: mouth in [place] mg-mcg per 00 the Medical tablet morning Branch and 1 tablet in the evening. buPROPion 2022-0 Yes [id number] 150mg Take 1 [facility] nivers SR 150 mg 1-05 tablet by ity o f SR tablet 00:00: mouth [place] 00 the Medical morning Branch and 1 tablet in the evening. diclofenac- 2022-0 Yes [id number] 1{tbl} Take 1 [facility] misoprostoL 1-05 tablet by ity of 50-200 00:00: mouth in [place] mg-mcg per 00 the Medical tablet morning Branch and 1 tablet in the evening. buPROPion Yes [id number] 150mg Take 1 [facility] nivers SR 150 mg 1-05 tablet by ity o f SR tablet 00:00: mouth [place] 00 the Medical morning Branch and 1 tablet in the evening. diclofenac- Yes [id number] 1{tbl} Take 1 [facility] misoprostoL 1-05 tablet by ity of 50-200 00:00: mouth in [place] mg-mcg per 00 the Medical tablet morning Branch and 1 tablet in the evening. buPROPion 2022- No [id number] 150mg Take 1 [facility] SR 150 mg 1-05 05-09 tablet by ity of SR tablet 00:00: 00:00 mouth in [place] 00 :00 the Medical morning Branch and 1 tablet in the evening. diclofenac- 2022- No [id number] 1{tbl} Take 1 [facility] misoprostoL 1-05 05-09 tablet by it y of 50-200 00:00: 00:00 mouth in [place] mg-mcg per 00 :00 the Medical tablet morning Branch and 1 tablet in the evening. buPROPion 2022- No [id number] 150mg Take 1 [facility] SR 150 mg 1-05 05-09 tablet by ity of SR tablet 00:00: 00:00 mouth in [place] 00 :00 the Medical morning Branch and 1 tablet in the evening. diclofenac- 2022- No [id number] 1{tbl} Take 1 [facility] misoprostoL 1-05 05-09 tablet by it y of 50-200 00:00: 00:00 mouth in [place] mg-mcg per 00 :00 the Medical tablet morning Branch and 1 tablet in the evening. buPROPion 2022- No [id number] 150mg Take 1 [facility] SR 150 mg 1-05 05-09 tablet by ity of SR tablet 00:00: 00:00 mouth in [place] 00 :00 the Medical morning Branch and 1 tablet in the evening. diclofenac- 2022- No [id number] 1{tbl} Take 1 [facility] misoprostoL 1-05 05-09 tablet by it y of 50-200 00:00: 00:00 mouth in [place] mg-mcg per 00 :00 the Medical tablet morning Branch and 1 tablet in the evening. buPROPion No [id number] 150mg Take 1 [facility] SR 150 mg 1-05 05-09 tablet by ity of SR tablet 00:00: 00:00 mouth in [place] 00 :00 the Medical morning Branch and 1 tablet in the evening. diclofenac- No [id number] 1{tbl} Take 1 [facility] misoprostoL 1-05 05-09 tablet by it y of 50-200 00:00: 00:00 mouth in [place] mg-mcg per 00 :00 the Medical tablet morning Branch and 1 tablet in the evening. buPROPion No [id number] 150mg Take 1 [facility] SR 150 mg - 05-09 tablet by ity of SR tablet 00:00: 00:00 mouth in [place] 00 :00 the Medical morning Branch and 1 tablet in the evening. diclofenac- No [id number] 1{tbl} Take 1 [facility] misoprostoL 1-05 05-09 tablet by it y of 50-200 00:00: 00:00 mouth in [place] mg-mcg per 00 :00 the Medical tablet morning Branch and 1 tablet in the evening. buPROPion No [id number] 150mg Take 1 [facility] SR 150 mg -05 05-09 tablet by ity of SR tablet 00:00: 00:00 mouth in [place] 00 :00 the Medical morning Branch and 1 tablet in the evening. diclofenac- No [id number] 1{tbl} Take 1 [facility] misoprostoL 1-05 05-09 tablet by it y of 50-200 00:00: 00:00 mouth in [place] mg-mcg per 00 :00 the Medical tablet morning Branch and 1 tablet in the evening. buPROPion No [id number] 150mg Take 1 [facility] SR 150 mg 1-05 05-09 tablet by ity of SR tablet 00:00: 00:00 mouth in [place] 00 :00 the Medical morning Branch and 1 tablet in the evening. diclofenac- No [id number] 1{tbl} Take 1 [facility] misoprostoL 1-05 05-09 tablet by it y of 50-200 00:00: 00:00 mouth in [place] mg-mcg per 00 :00 the Medical tablet morning Branch and 1 tablet in the evening. fluticasone 2021-11 Yes [id number] ANAKE [facility] propionate 2-29 LIQUID AND ity of 50 00:00: USE 2 [place] mcg/actuati 00 SPRAYS IN Med ical on nasal EACH Branch spray NOSTRIL EVERY DAY fluticasone 2021-11 Yes [id number] ANAKE [facility] propionate 2-29 LIQUID AND ity of 50 00:00: USE 2 [place] mcg/actuati 00 SPRAYS IN Med ical on nasal EACH Branch spray NOSTRIL EVERY DAY fluticasone 2021-11 Yes [id number] ANAKE [facility] propionate 2-29 LIQUID AND ity of 50 00:00: USE 2 [place] mcg/actuati 00 SPRAYS IN Med ical on nasal EACH Branch spray NOSTRIL EVERY DAY fluticasone 2021-11 Yes [id number] ANAKE [facility] propionate 2-29 LIQUID AND ity of 50 00:00: USE 2 [place] mcg/actuati 00 SPRAYS IN Med ical on nasal EACH Branch spray NOSTRIL EVERY DAY fluticasone 2021-11 Yes [id number] ANAKE [facility] propionate 2-29 LIQUID AND ity of 50 00:00: USE 2 [place] mcg/actuati 00 SPRAYS IN Med ical on nasal EACH Branch spray NOSTRIL EVERY DAY fluticasone 2021-11 Yes [id number] ANAKE [facility] propionate 2-29 LIQUID AND ity of 50 00:00: USE 2 [place] mcg/actuati 00 SPRAYS IN Med ical on nasal EACH Branch spray NOSTRIL EVERY DAY fluticasone 2021-11 Yes [id number] SHAKE [facility] propionate 2-29 LIQUID AND ity of 50 00:00: USE 2 [place] mcg/actuati 00 SPRAYS IN Med ical on nasal EACH Branch spray NOSTRIL EVERY DAY fluticasone 2021-11 Yes [id number] SHAKE [facility] propionate 2-29 LIQUID AND ity of 50 00:00: USE 2 [place] mcg/actuati 00 SPRAYS IN Med ical on nasal EACH Branch spray NOSTRIL EVERY DAY fluticasone 2021-11 Yes [id number] SHAKE [facility] propionate 2-29 LIQUID AND ity of 50 00:00: USE 2 [place] mcg/actuati 00 SPRAYS IN Med ical on nasal EACH Branch spray NOSTRIL EVERY DAY fluticasone 2021-11 Yes [id number] SHAKE [facility] propionate 2-29 LIQUID AND ity of 50 00:00: USE 2 [place] mcg/actuati 00 SPRAYS IN Med ical on nasal EACH Branch spray NOSTRIL EVERY DAY fluticasone 2021-11 Yes [id number] SHAKE [facility] propionate 2-29 LIQUID AND ity of 50 00:00: USE 2 [place] mcg/actuati 00 SPRAYS IN Med ical on nasal EACH Branch spray NOSTRIL EVERY DAY fluticasone 2021-11 Yes [id number] SHAKE [facility] propionate 2-29 LIQUID AND ity of 50 00:00: USE 2 [place] mcg/actuati 00 SPRAYS IN Med ical on nasal EACH Branch spray NOSTRIL EVERY DAY fluticasone 2021-11 Yes [id number] SHAKE [facility] propionate 2-29 LIQUID AND ity of 50 00:00: USE 2 [place] mcg/actuati 00 SPRAYS IN Med ical on nasal EACH Branch spray NOSTRIL EVERY DAY fluticasone 2021-11 Yes [id number] SHAKE [facility] propionate 2-29 LIQUID AND ity of 50 00:00: USE 2 [place] mcg/actuati 00 SPRAYS IN Med ical on nasal EACH Branch spray NOSTRIL EVERY DAY fluticasone 2021-11 Yes [id number] SHAKE [facility] propionate 2-29 LIQUID AND ity of 50 00:00: USE 2 [place] mcg/actuati 00 SPRAYS IN Med ical on nasal EACH Branch spray NOSTRIL EVERY DAY fluticasone 2021-11 Yes [id number] SHAKE [facility] propionate 2-29 LIQUID AND ity of 50 00:00: USE 2 [place] mcg/actuati 00 SPRAYS IN Med ical on nasal EACH Branch spray NOSTRIL EVERY DAY fluticasone 2021-11 Yes [id number] SHAKE [facility] propionate 2-29 LIQUID AND ity of 50 00:00: USE 2 [place] mcg/actuati 00 SPRAYS IN Med ical on nasal EACH Branch spray NOSTRIL EVERY DAY fluticasone 2021-11 Yes [id number] SHAKE [facility] propionate 2-29 LIQUID AND ity of 50 00:00: USE 2 [place] mcg/actuati 00 SPRAYS IN Med ical on nasal EACH Branch spray NOSTRIL EVERY DAY fluticasone 2021-11 Yes [id number] SHAKE [facility] propionate 2-29 LIQUID AND ity of 50 00:00: USE 2 [place] mcg/actuati 00 SPRAYS IN Med ical on nasal EACH Branch spray NOSTRIL EVERY DAY fluticasone 2021-11 Yes [id number] SHAKE [facility] propionate 2-29 LIQUID AND ity of 50 00:00: USE 2 [place] mcg/actuati 00 SPRAYS IN Med ical on nasal EACH Branch spray NOSTRIL EVERY DAY fluticasone 2021-11 Yes [id number] SHAKE [facility] propionate 2-29 LIQUID AND ity of 50 00:00: USE 2 [place] mcg/actuati 00 SPRAYS IN Med ical on nasal EACH Branch spray NOSTRIL EVERY DAY fluticasone 2021-11 Yes [id number] SHAKE [facility] propionate 2-29 LIQUID AND ity of 50 00:00: USE 2 [place] mcg/actuati 00 SPRAYS IN Med ical on nasal EACH Branch spray NOSTRIL EVERY DAY fluticasone 2021-11 Yes [id number] SHAKE [facility] propionate 2-29 LIQUID AND ity of 50 00:00: USE 2 [place] mcg/actuati 00 SPRAYS IN Med ical on nasal EACH Branch spray NOSTRIL EVERY DAY fluticasone 2021-11- No [id number] SHAKE [facility] propionate 2-29 03-28 LIQUID AND it y of 50 00:00: 00:00 USE 2 [place] mcg/actuati 00 :00 SPRAYS IN Med ical on nasal EACH Branch spray NOSTRIL EVERY DAY methylpredn 2021-11 Yes 125mg 125 mg, Un pelon isolone sod 2-09 Intravenou it y of succ 00:00: s, Q6H, [place] (SOLU-MEDRO 00 First dose Me dical L) on [place] Branch injection 10/11/22 at 125 mg 1800, Until Discontinu ed, Routine ketorolac 2021-11- No 15mg 15 mg, Unive rs (TORADOL) 2-08 12-08 Slow IV ity of injection 21:15: 20:44 [place], [place] 15 mg 00 :00 ONCE, 1 Medical dose, On Branch [place] 10/11/22 at 1515, Routine methylPREDN 2021-11 Yes Take by [facility] ISolone 2-08 mouth ity of (MEDROL, 00:00: SEE-INSTRU [place],) 4 mg 00 CTIONS. Medica l tablets follow Branch package directions methylPREDN 2021-11 Yes Take by [facility] ISolone 2-08 mouth ity of (MEDROL, 00:00: [place]-INSTRU [place],) 4 mg 00 CTIONS. Medica l tablets follow Branch package directions methylPREDN 2021-11 Yes Take by [facility] ISolone 2-08 mouth ity of (MEDROL, 00:00: [place]-INSTRU [place],) 4 mg 00 CTIONS. Medica l tablets follow Branch package directions methylPREDN 2021-11 [facility] (MED[facility]OL, 00:00: [place],) 4 mg 00 CTIONS. Medica l tablets follow Branch package directions methylPREDN 2021-11 Yes Take by [facility] ISolone 2-08 mouth ity of (MEDROL, 00:00: [place]-INSTRU [place],) 4 mg 00 CTIONS. Medica l tablets follow Branch package directions methylPREDN 2021-11 [facility] (MEDROL, 00:00: [place]IN[place],) 4 mg 00 CTIONS. Medica l tablets follow Branch package directions methylPREDN 2021-11 Yes Take by [facility] ISolone 2-08 mouth ity of (MEDROL, 00:00: [place]-INSTRU [place],) 4 mg 00 CTIONS. Medica l tablets follow Branch package directions methylPREDN 2021-11 Yes Take by [facility] ISolone 2-08 mouth ity of (MEDROL, 00:00: [place]-INSTRU [place],) 4 mg 00 CTIONS. Medica l tablets follow Branch package directions methylPREDN 2021-11 Yes Take by [facility] ISolone 2-08 mouth ity of (MEDROL, 00:00: [...] package directions methylPREDN 2021-11 Yes Take by [facility] 12-12 mouth ity of (MEDROL, 00:00: SEE-INSTRU [place],) 4 mg 00 CTIONS. Medica l tablets follow Branch package directions methylPREDN 2021-11 [facility] of (MEDROL, 00:00: SEE-INSTRU [place],) 4 mg 00 CTIONS. Medica l tablets follow Branch package directions methylPREDN 2021-11 Yes [facility] mouth ity of (MEDROL, 00:00: SEE-INSTRU [place],) 4 mg 00 CTIONS. Medica l tablets follow Branch package directions methylPREDN 2021-11 Yes [facility] of (MEDROL, 00:00: SEE-INSTRU [place],) 4 mg 00 CTIONS. Medica l tablets follow Branch package directions methylPREDN 2021-11 Yes Take by [facility] 12-12 mouth ity of (MEDROL, 00:00: SEE-INSTRU [place],) 4 mg 00 CTIONS. Medica l tablets follow Branch package directions methylPREDN 2021-11 Yes Take by [facility] 12-12 mouth ity of (MEDROL, 00:00: SEE-INSTRU [place],) 4 mg 00 CTIONS. Medica l tablets follow Branch package directions methylPREDN 2021-11 Yes Take by [facility] 12-12 mouth ity of (MEDROL, 00:00: SEE-INSTRU [place],) 4 mg 00 CTIONS. Medica l tablets follow Branch package directions methylPREDN 2021-11- No Take by [place] [id number] mouth ity of (MEDROL, 00:00: 00:[place]SH,) 4 mg 00 :00 CTIONS. Medica l tablets follow Branch package directions methylPREDN 2021-11- No [id number] Take by [place] [id number] mouth ity of (MEDROL, 00:00: 00:00 [place],) 4 mg 00 :00 CTIONS. Medica l tablets follow Branch package directions methylPREDN 2021-11- No [id number] Take by [facility] ISolone 12-12 06-23 mouth ity of (MEDROL, 00:00: 00:00 [place],) 4 mg 00 :00 CTIONS. Medica l tablets follow Branch package directions indomethaci 2021-11- No [id number] 50mg Take 1 [facility] n 50 mg 12-12 capsule by ity o f capsule 00:00: 05:59 mouth in [place] 00 :00 the [facility] and 1 capsule at noon and 1 capsule in the evening. Take with meals. Do all this for 5 days. indomethaci 2021-11- No [id number] 50mg Take 1 [facility] n 50 mg 12-12 capsule by ity o f capsule 00:00: 05:59 mouth in [place] 00 :00 the [facility] and 1 capsule at noon and 1 capsule in the evening. Take with meals. Do all this for 5 days. gabapentin 2021-11 Yes [id number] 600mg Take 1 [facility] 600 mg 0-05 tablet by ity of tablet 00:00: mouth in [address] and 1 tablet at noon and 1 tablet in the evening. DULoxetine 2021-11 Yes [id number] 60mg Take 1 [facility] 60 mg 0-05 capsule by ity of capsule 00:00: mouth in [address] and 1 capsule in the evening. hydrALAZINE 2021-11 Yes [id number] 50mg Take 1 [facility] 50 mg 0-05 tablet by ity of tablet 00:00: mouth in [address] and 1 tablet in the evening. furosemide 2021-11 Yes [id number] Take lasix [facility] (LASIX) 40 0-05 02 40 mg BID ity of mg tablet 00:00: [address] metFORMIN 2021-11 Yes [id number] 500mg Take 1 [facility] 500 mg 0-05 tablet by ity of tablet 00:00: mouth in [address] and 1 tablet in the evening. Take with meals. omeprazole 2021-11 Yes [id number] 40mg Take 1 [facility] 40 mg 0-05 capsule by ity of capsule 00:00: mouth in [address] Branch potassium 2021-11 Yes [id number] 10meq Take 1 [facility] chloride 10 0-05 02 tablet by ity of mEq CR 00:00: mouth [place] tablet 00 every Medical Saturday, Branch Saturday and Saturday. rosuvastati 2021-11 Yes [id number] 20mg Take 1 [facility] n 20 mg 0-05 tablet by ity of tablet 00:00: mouth in [place] 00 the morning. Branch carvediloL 2021-11 Yes [id number] 25mg Take 1 [facility] 25 mg 0-05 02 tablet by ity of tablet 00:00: mouth in [place] 00 the Medical morning Branch and 1 tablet in the evening. glimepiride 2021-11 Yes [id number] 2mg Take 1 [facility] 2 mg tablet 0-05 tablet by ity of 00:00: mouth in [place] [address] the Medical morning Branch and 1 tablet in the evening. pioglitazon 2021-11 Yes [id number] 15mg Take 1 [facility] e 15 mg 0-05 tablet by ity of tablet 00:00: mouth in [place] 00 the morning. Branch gabapentin 2021-11 Yes [id number] 600mg Take 1 [facility] 600 mg 0-05 tablet by ity of tablet 00:00: mouth in [place] [address] the Medical morning Branch and 1 tablet at noon and 1 tablet in the evening. DULoxetine 2021-11 Yes [id number] 60mg Take 1 [facility] 60 mg 0-05 capsule by ity of capsule 00:00: mouth in [place] [address] the morning Branch and 1 capsule in the evening. hydrALAZINE 2021-11 Yes [id number] 50mg Take 1 [facility] 50 mg 0-05 tablet by ity of tablet 00:00: mouth in [place] 00 the Medical morning Branch and 1 tablet in the evening. furosemide 2021-11 Yes [id number] Take lasix [facility] (LASIX) 40 0-05 02 40 mg BID ity of mg tablet 00:00: [place] [address] Medical Branch metFORMIN 2021-11 Yes [id number] 500mg Take 1 [facility] 500 mg 0-05 tablet by ity of tablet 00:00: mouth in [place] [address] the Medical morning Branch and 1 tablet in the evening. Take with meals. omeprazole 2021-11 Yes [id number] 40mg Take 1 [facility] 40 mg 0-05 capsule by ity of capsule 00:00: mouth in [place] 00 the morning. Branch potassium 2021-11 Yes [id number] 10meq Take 1 [facility] chloride 10 0-05 02 tablet by ity of mEq CR 00:00: mouth [place] tablet 00 every Medical Saturday, Branch Saturday and Saturday. rosuvastati 2021-11 Yes [id number] 20mg Take 1 [facility] n 20 mg 0-05 tablet by ity of tablet 00:00: mouth in [place] 00 the morning. Branch carvediloL 2021-11 Yes [id number] 25mg Take 1 [facility] 25 mg 0-05 02 tablet by ity of tablet 00:00: mouth in [place] 00 the Medical morning Branch and 1 tablet in the evening. glimepiride 2021-11 Yes [id number] 2mg Take 1 [facility] 2 mg tablet 0-05 tablet by ity of 00:00: mouth in [place] [address] the Medical morning Branch and 1 tablet in the evening. pioglitazon 2021-11 Yes [id number] 15mg Take 1 [facility] e 15 mg 0-05 tablet by ity of tablet 00:00: mouth in [place] [address] the morning. Branch gabapentin 2021-11 Yes [id number] 600mg Take 1 [facility] 600 mg 0-05 tablet by ity of tablet 00:00: mouth in [place] [address] the Medical morning Branch and 1 tablet at noon and 1 tablet in the evening. DULoxetine 2021-11 Yes [id number] 60mg Take 1 [facility] 60 mg 0-05 capsule by ity of capsule 00:00: mouth in [place] [address] the [facility] morning [place] and 1 capsule in the evening. hydrALAZINE 2021-11 Yes [id number] 50mg Take 1 [facility] 50 mg 0-05 tablet by ity of tablet 00:00: mouth in [place] [address] the [facility] morning Branch and 1 tablet in the evening. furosemide 2021-11 Yes [id number] Take lasix [facility] (LASIX) 40 0-05 02 40 mg BID ity of mg tablet 00:00: [address] metFORMIN 2021-11 Yes [id number] 500mg Take 1 [facility] 500 mg 0-05 tablet by ity of tablet 00:00: mouth in [place] [address] the [facility] morning [place] and 1 tablet in the evening. Take with meals. omeprazole 2021-11 Yes [id number] 40mg Take 1 [facility] 40 mg 0-05 capsule by ity of capsule 00:00: mouth in [place] the morning. Branch potassium 2021-11 Yes [id number] 10meq Take 1 [facility] chloride 10 0-05 02 tablet by ity of mEq CR 00:00: mouth [place] tablet 00 every Medical Saturday, Branch Saturday and Saturday. rosuvastati 2021-11 Yes [id number] 20mg Take 1 [facility] n 20 mg 0-05 tablet by ity of tablet 00:00: mouth in [place] the morning. Branch carvediloL 2021-11 Yes [id number] 25mg Take 1 [facility] 25 mg 0-05 02 tablet by ity of tablet 00:00: mouth in [place] 00 the Medical morning Branch and 1 tablet in the evening. glimepiride 2021-11 Yes [id number] 2mg Take 1 [facility] 2 mg tablet 0-05 tablet by ity of 00:00: mouth in [place] [address] the Medical morning Branch and 1 tablet in the evening. pioglitazon 2021-11 Yes [id number] 15mg Take 1 [facility] e 15 mg 0-05 tablet by ity of tablet 00:00: mouth in [place] 00 the morning. Branch gabapentin 2021-11 Yes [id number] 600mg Take 1 [facility] 600 mg 0-05 tablet by ity of tablet 00:00: mouth in [place] [address] the morning Branch and 1 tablet at noon and 1 tablet in the evening. DULoxetine 2021-11 Yes [id number] 60mg Take 1 [facility] 60 mg 0-05 capsule by ity of capsule 00:00: mouth in [place] [address] the morning [place] and 1 capsule in the evening. hydrALAZINE 2021-11 Yes [id number] 50mg Take 1 [facility] 50 mg 0-05 tablet by ity of tablet 00:00: mouth in [place] [address] the morning [place] and 1 tablet in the evening. furosemide 2021-11 Yes [id number] Take lasix [facility] (LASIX) 40 0-05 02 40 mg BID ity of mg tablet 00:00: [address] metFORMIN 2021-11 Yes [id number] 500mg Take 1 [facility] 500 mg 0-05 tablet by ity of tablet 00:00: mouth in [place] [address] the Medical morning [place] and 1 tablet in the evening. Take with meals. omeprazole 2021-11 Yes [id number] 40mg Take 1 [facility] 40 mg 0-05 capsule by ity of capsule 00:00: mouth in [place] 00 the morning. Branch potassium 2021-11 Yes [id number] 10meq Take 1 [facility] chloride 10 0-05 02 tablet by ity of mEq CR 00:00: mouth [place] tablet 00 every Medical Saturday, Branch Saturday and Saturday. rosuvastati 2021-11 Yes [id number] 20mg Take 1 [facility] n 20 mg 0-05 tablet by ity of tablet 00:00: mouth in [place] 00 the morning. Branch carvediloL 2021-11 Yes [id number] 25mg Take 1 [facility] 25 mg 0-05 02 tablet by ity of tablet 00:00: mouth in [place] 00 the Medical morning Branch and 1 tablet in the evening. glimepiride 2021-11 Yes [id number] 2mg Take 1 [facility] 2 mg tablet 0-05 tablet by ity of 00:00: mouth in [place] the morning Branch and 1 tablet in the evening. pioglitazon 2021-11 Yes [id number] 15mg Take 1 [facility] e 15 mg 0-05 tablet by [facility] tablet 00:00: mouth in [place] 00 the morning. Branch gabapentin 2021-11 Yes [id number] 600mg Take 1 [facility] 600 mg 0-05 tablet by [facility] tablet 00:00: mouth in [place] the morning Branch and 1 tablet at noon and 1 tablet in the evening. DULoxetine 2021-11 Yes [id number] 60mg Take 1 [facility] 60 mg 0-05 capsule by [facility] of capsule 00:00: mouth in [place] the [facility] morning Branch and 1 capsule in the evening. hydrALAZINE 2021-11 Yes [id number] 50mg Take 1 [facility] 50 mg 0-05 tablet by [facility] of tablet 00:00: mouth in [place] 00 the [facility] morning Branch and 1 tablet in the evening. furosemide 2021-11 Yes [id number] Take lasix [facility] (LASIX) 40 0-05 02 40 mg BID ity of mg tablet 00:00: [address] metFORMIN 2021-11 Yes [id number] 500mg Take 1 [facility] 500 mg 0-05 tablet by [facility] of tablet 00:00: mouth in [place] [address] the Medical morning Branch and 1 tablet in the evening. Take with meals. omeprazole 2021-11 Yes [id number] 40mg Take 1 [facility] 40 mg 0-05 capsule by [facility] of capsule 00:00: mouth in [place] the morning. Branch potassium 2021-11 Yes [id number] 10meq Take 1 [facility] chloride 10 0-05 02 tablet by ity of mEq CR 00:00: mouth [place] tablet 00 every Medical Saturday, Branch Saturday and Saturday. rosuvastati 2021-11 Yes [id number] 20mg Take 1 [facility] n 20 mg 0-05 tablet by [facility] of tablet 00:00: mouth in [place] 00 the morning. Branch carvediloL 2021-11 Yes [id number] 25mg Take 1 [facility] 25 mg 0-05 02 tablet by it[facility] of tablet 00:00: mouth in [place] the morning Branch and 1 tablet in the evening. glimepiride 2021-11 Yes [id number] 2mg Take 1 [facility] 2 mg tablet 0-05 tablet by ity of 00:00: mouth in [place] [address] the [facility] morning [place] and 1 tablet in the evening. pioglitazon 2021-11 Yes [id number] 15mg Take 1 [facility] e 15 mg 0-05 tablet by it[facility] of tablet 00:00: mouth in [place] the morning. Branch gabapentin 2021-11 Yes [id number] 600mg Take 1 [facility] 600 mg 0-05 tablet by [facility] of tablet 00:00: mouth in [place] the morning Branch and 1 tablet at noon and 1 tablet in the evening. DULoxetine 2021-11 Yes [id number] 60mg Take 1 [facility] 60 mg 0-05 capsule by [facility] of capsule 00:00: mouth in [place] [address] the [facility] morning [place] and 1 capsule in the evening. hydrALAZINE 2021-11 Yes [id number] 50mg Take 1 [facility] 50 mg 0-05 tablet by [facility] of tablet 00:00: mouth in [place] [address] the [facility] morning [place] and 1 tablet in the evening. furosemide 2021-11 Yes [id number] Take lasix [facility] (LASIX) 40 0-05 02 40 mg BID ity of mg tablet 00:00: [place] [address] Medical [place] metFORMIN 2021-11 Yes [id number] 500mg Take 1 [facility] 500 mg 0-05 tablet by [facility] of tablet 00:00: mouth in [place] [address] the [facility] morning [place] and 1 tablet in the evening. Take with meals. omeprazole 2021-11 Yes [id number] 40mg Take 1 [facility] 40 mg 0-05 capsule by [facility] of capsule 00:00: mouth in [place] the morning. Branch potassium 2021-11 Yes [id number] 10meq Take 1 [facility] chloride 10 0-05 02 tablet by ity of mEq CR 00:00: mouth [place] tablet 00 every Medical Saturday, Branch Saturday and Saturday. rosuvastati 2021-11 Yes [id number] 20mg Take 1 [facility] n 20 mg 0-05 tablet by it[facility] of tablet 00:00: mouth in [place] 00 the morning. Branch carvediloL 2021-11 Yes [id number] 25mg Take 1 [facility] 25 mg 0-05 02 tablet by [facility] of tablet 00:00: mouth in [place] the morning Branch and 1 tablet in the evening. glimepiride 2021-11 Yes [id number] 2mg Take 1 [facility] 2 mg tablet 0-05 tablet by ity of 00:00: mouth in [place] the morning Branch and 1 tablet in the evening. pioglitazon 2021-11 Yes [id number] 15mg Take 1 [facility] e 15 mg 0-05 tablet by it[facility] of tablet 00:00: mouth in [place] the morning. Branch gabapentin 2021-11 Yes [id number] 600mg Take 1 [facility] 600 mg 0-05 tablet by [facility] of tablet 00:00: mouth in [place] the morning [place] and 1 tablet at noon and 1 tablet in the evening. DULoxetine 2021-11 Yes [id number] 60mg Take 1 [facility] 60 mg 0-05 capsule by [facility] of capsule 00:00: mouth in [place] the Medical morning Branch and 1 capsule in the evening. hydrALAZINE 2021-11 Yes [id number] 50mg Take 1 [facility] 50 mg 0-05 tablet by [facility] of tablet 00:00: mouth in [place] the morning Branch and 1 tablet in the evening. furosemide 2021-11 Yes [id number] Take lasix [facility] (LASIX) 40 0-05 02 40 mg BID ity of mg tablet 00:00: [place] [address] Medical [place] metFORMIN 2021-11 Yes [id number] 500mg Take 1 [facility] 500 mg 0-05 tablet by it[facility] of tablet 00:00: mouth in [place] 00 the Medical morning Branch and 1 tablet in the evening. Take with meals. omeprazole 2021-11 Yes [id number] 40mg Take 1 [facility] 40 mg 0-05 capsule by it[facility] of capsule 00:00: mouth in [place] the . Branch potassium 2021-11 Yes [id number] 10meq Take 1 [facility] chloride 10 0-05 02 tablet by ity of mEq CR 00:00: mouth [place] tablet 00 every Medical Saturday, Branch Saturday and Saturday. rosuvastati 2021-11 Yes [id number] 20mg Take 1 [facility] n 20 mg 0-05 tablet by ity of tablet 00:00: mouth in [place] the . Branch carvediloL 2021-11 Yes [id number] 25mg Take 1 [facility] 25 mg 0-05 02 tablet by ity of tablet 00:00: mouth in [place] [address] the morning [place] and 1 tablet in the evening. glimepiride 2021-11 Yes [id number] 2mg Take 1 [facility] 2 mg tablet 0-05 tablet by ity of 00:00: mouth in [place] [address] the morning [place] and 1 tablet in the evening. pioglitazon 2021-11 Yes [id number] 15mg Take 1 [facility] e 15 mg 0-05 tablet by it[facility] of tablet 00:00: mouth in [place] [address] the . Branch gabapentin 2021-11 Yes [id number] 600mg Take 1 [facility] 600 mg 0-05 tablet by it[facility] of tablet 00:00: mouth in [place] [address] the [facility] and 1 tablet at noon and 1 tablet in the evening. DULoxetine 2021-11 Yes [id number] 60mg Take 1 [facility] 60 mg 0-05 capsule by it[facility] of capsule 00:00: mouth in [place] [address] the [facility] morning [place] and 1 capsule in the evening. hydrALAZINE 2021-11 Yes [id number] 50mg Take 1 [facility] 50 mg 0-05 tablet by ity of tablet 00:00: mouth in [place] [address] the morning [place] and 1 tablet in the evening. furosemide 2021-11 Yes [id number] Take lasix [facility] (LASIX) 40 0-05 02 40 mg BID ity of mg tablet 00:00: [place] [address] Medical [place] metFORMIN 2021-11 Yes [id number] 500mg Take 1 [facility] 500 mg 0-05 tablet by it[facility] of tablet 00:00: mouth in [place] the morning Branch and 1 tablet in the evening. Take with meals. omeprazole 2021-11 Yes [id number] 40mg Take 1 [facility] 40 mg 0-05 capsule by it[facility] of capsule 00:00: mouth in [place] the morning. Branch potassium 2021-11 Yes [id number] 10meq Take 1 [facility] chloride 10 0-05 02 tablet by ity of mEq CR 00:00: mouth [place] tablet 00 every Medical Saturday, Branch Saturday and Saturday. rosuvastati 2021-11 Yes [id number] 20mg Take 1 [facility] n 20 mg 0-05 tablet by it[facility] of tablet 00:00: mouth in [place] the morning. Branch carvediloL 2021-11 Yes [id number] 25mg Take 1 [facility] 25 mg 0-05 02 tablet by ity of tablet 00:00: mouth in [place] [address] the morning Branch and 1 tablet in the evening. glimepiride 2021-11 Yes [id number] 2mg Take 1 [facility] 2 mg tablet 0-05 tablet by ity of 00:00: mouth in [place] [address] the morning Branch and 1 tablet in the evening. pioglitazon 2021-11 Yes [id number] 15mg Take 1 [facility] e 15 mg 0-05 tablet by it[facility] of tablet 00:00: mouth in [place] the morning. Branch gabapentin 2021-11 Yes [id number] 600mg Take 1 [facility] 600 mg 0-05 tablet by ity of tablet 00:00: mouth in [place] [address] the morning [place] and 1 tablet at noon and 1 tablet in the evening. DULoxetine 2021-11 Yes [id number] 60mg Take 1 [facility] 60 mg 0-05 capsule by it[facility] of capsule 00:00: mouth in [place] [address] the Medical morning Branch and 1 capsule in the evening. hydrALAZINE 2021-11 Yes [id number] 50mg Take 1 [facility] 50 mg 0-05 tablet by it[facility] of tablet 00:00: mouth in [place] [address] the morning Branch and 1 tablet in the evening. furosemide 2021-11 Yes [id number] Take lasix [facility] (LASIX) 40 0-05 02 40 mg BID ity of mg tablet 00:00: [place] [address] Medical Branch metFORMIN 2021-11 Yes [id number] 500mg Take 1 [facility] 500 mg 0-05 tablet by it[facility] of tablet 00:00: mouth in [place] the morning Branch and 1 tablet in the evening. Take with meals. omeprazole 2021-11 Yes [id number] 40mg Take 1 [facility] 40 mg 0-05 capsule by it[facility] of capsule 00:00: mouth in [place] the . Branch potassium 2021-11 Yes [id number] 10meq Take 1 [facility] chloride 10 0-05 02 tablet by ity of mEq CR 00:00: mouth [place] tablet 00 every Medical Saturday, Branch Saturday and Saturday. rosuvastati 2021-11 Yes [id number] 20mg Take 1 [facility] n 20 mg 0-05 tablet by [facility] of tablet 00:00: mouth in [place] the . Branch carvediloL 2021-11 Yes [id number] 25mg Take 1 [facility] 25 mg 0-05 02 tablet by ity of tablet 00:00: mouth in [place] [address] the morning [place] and 1 tablet in the evening. glimepiride 2021-11 Yes [id number] 2mg Take 1 [facility] 2 mg tablet 0-05 tablet by ity of 00:00: mouth in [place] [address] the morning [place] and 1 tablet in the evening. pioglitazon 2021-11 Yes [id number] 15mg Take 1 [facility] e 15 mg 0-05 tablet by ity of tablet 00:00: mouth in [place] the . Branch gabapentin 2021-11 Yes [id number] 600mg Take 1 [facility] 600 mg 0-05 tablet by ity of tablet 00:00: mouth in [place] [address] the morning Branch and 1 tablet at noon and 1 tablet in the evening. DULoxetine 2021-11 Yes [id number] 60mg Take 1 [facility] 60 mg 0-05 capsule by it[facility] of capsule 00:00: mouth in [place] [address] the morning Branch and 1 capsule in the evening. hydrALAZINE 2021-11 Yes [id number] 50mg Take 1 [facility] 50 mg 0-05 tablet by ity of tablet 00:00: mouth in [place] [address] the [facility] morning [place] and 1 tablet in the evening. furosemide 2021-11 Yes [id number] Take lasix [facility] (LASIX) 40 0-05 02 40 mg BID ity of mg tablet 00:00: [address] metFORMIN 2021-11 Yes [id number] 500mg Take 1 [facility] 500 mg 0-05 tablet by ity of tablet 00:00: mouth in [place] the morning Branch and 1 tablet in the evening. Take with meals. omeprazole 2021-11 Yes [id number] 40mg Take 1 [facility] 40 mg 0-05 capsule by ity of capsule 00:00: mouth in [place] 00 the morning. Branch potassium 2021-11 Yes [id number] 10meq Take 1 [facility] chloride 10 0-05 02 tablet by ity of mEq CR 00:00: mouth [place] tablet 00 every Medical Saturday, Branch Saturday and Saturday. rosuvastati 2021-11 Yes [id number] 20mg Take 1 [facility] n 20 mg 0-05 tablet by ity of tablet 00:00: mouth in [place] 00 the morning. Branch carvediloL 2021-11 Yes [id number] 25mg Take 1 [facility] 25 mg 0-05 02 tablet by ity of tablet 00:00: mouth in [place] the morning Branch and 1 tablet in the evening. glimepiride 2021-11 Yes [id number] 2mg Take 1 [facility] 2 mg tablet 0-05 tablet by ity of 00:00: mouth in [place] the morning Branch and 1 tablet in the evening. pioglitazon 2021-11 Yes [id number] 15mg Take 1 [facility] e 15 mg 0-05 tablet by ity of tablet 00:00: mouth in [place] 00 the morning. Branch gabapentin 2021-11 Yes [id number] 600mg Take 1 [facility] 600 mg 0-05 tablet by ity of tablet 00:00: mouth in [place] the Medical morning Branch and 1 tablet at noon and 1 tablet in the evening. DULoxetine 2021-11 Yes [id number] 60mg Take 1 [facility] 60 mg 0-05 capsule by ity of capsule 00:00: mouth in [place] [address] the Medical morning Branch and 1 capsule in the evening. hydrALAZINE 2021-11 Yes [id number] 50mg Take 1 [facility] 50 mg 0-05 tablet by ity of tablet 00:00: mouth in [place] [address] the Medical morning Branch and 1 tablet in the evening. furosemide 2021-11 Yes [id number] Take lasix [facility] (LASIX) 40 0-05 02 40 mg BID ity of mg tablet 00:00: [address] metFORMIN 2021-11 Yes [id number] 500mg Take 1 [facility] 500 mg 0-05 tablet by ity of tablet 00:00: mouth in [place] the morning Branch and 1 tablet in the evening. Take with meals. omeprazole 2021-11 Yes [id number] 40mg Take 1 [facility] 40 mg 0-05 capsule by it[facility] of capsule 00:00: mouth in [place] 00 the morning. Branch potassium 2021-11 Yes [id number] 10meq Take 1 [facility] chloride 10 0-05 02 tablet by ity of mEq CR 00:00: mouth [place] tablet 00 every Medical Saturday, Branch Saturday and Saturday. rosuvastati 2021-11 Yes [id number] 20mg Take 1 [facility] n 20 mg 0-05 tablet by ity of tablet 00:00: mouth in [place] 00 the morning. Branch carvediloL 2021-11 Yes [id number] 25mg Take 1 [facility] 25 mg 0-05 02 tablet by ity of tablet 00:00: mouth in [place] [address] the [facility] morning [place] and 1 tablet in the evening. glimepiride 2021-11 Yes [id number] 2mg Take 1 [facility] 2 mg tablet 0-05 tablet by ity of 00:00: mouth in [place] [address] the [facility] morning [place] and 1 tablet in the evening. pioglitazon 2021-11 Yes [id number] 15mg Take 1 [facility] e 15 mg 0-05 tablet by ity of tablet 00:00: mouth in [place] 00 the . Branch gabapentin 2021-11 Yes [id number] 600mg Take 1 [facility] 600 mg 0-05 tablet by ity of tablet 00:00: mouth in [place] [address] the [facility] morning Branch and 1 tablet at noon and 1 tablet in the evening. DULoxetine 2021-11 Yes [id number] 60mg Take 1 [facility] 60 mg 0-05 capsule by ity of capsule 00:00: mouth in [place] [address] the [facility] morning [place] and 1 capsule in the evening. hydrALAZINE 2021-11 Yes [id number] 50mg Take 1 [facility] 50 mg 0-05 tablet by ity of tablet 00:00: mouth in [place] [address] the [facility] morning [place] and 1 tablet in the evening. furosemide 2021-11 Yes [id number] Take lasix [facility] (LASIX) 40 0-05 02 40 mg BID ity of mg tablet 00:00: [place] 00 Medical [place] metFORMIN 2021-11 Yes [id number] 500mg Take 1 [facility] 500 mg 0-05 tablet by ity of tablet 00:00: mouth in [place] [address] the morning Branch and 1 tablet in the evening. Take with meals. omeprazole 2021-11 Yes [id number] 40mg Take 1 [facility] 40 mg 0-05 capsule by ity of capsule 00:00: mouth in [place] 00 the morning. Branch potassium 2021-11 Yes [id number] 10meq Take 1 [facility] chloride 10 0-05 02 tablet by ity of mEq CR 00:00: mouth [place] tablet 00 every Medical Saturday, Branch Saturday and Saturday. rosuvastati 2021-11 Yes [id number] 20mg Take 1 [facility] n 20 mg 0-05 tablet by ity of tablet 00:00: mouth in [place] 00 the morning. Branch carvediloL 2021-11 Yes [id number] 25mg Take 1 [facility] 25 mg 0-05 02 tablet by ity of tablet 00:00: mouth in [place] [address] the Medical morning Branch and 1 tablet in the evening. glimepiride 2021-11 Yes [id number] 2mg Take 1 [facility] 2 mg tablet 0-05 tablet by ity of 00:00: mouth in [place] [address] the [facility] morning Branch and 1 tablet in the evening. pioglitazon 2021-11 Yes [id number] 15mg Take 1 [facility] e 15 mg 0-05 tablet by ity of tablet 00:00: mouth in [place] [address] the morning. Branch gabapentin 2021-11 Yes [id number] 600mg Take 1 [facility] 600 mg 0-05 tablet by ity of tablet 00:00: mouth in [place] [address] the [facility] morning Branch and 1 tablet at noon and 1 tablet in the evening. DULoxetine 2021-11 Yes [id number] 60mg Take 1 [facility] 60 mg 0-05 capsule by ity of capsule 00:00: mouth in [place] [address] the [facility] morning [place] and 1 capsule in the evening. hydrALAZINE 2021-11 Yes [id number] 50mg Take 1 [facility] 50 mg 0-05 tablet by ity of tablet 00:00: mouth in [place] [address] the [facility] morning [place] and 1 tablet in the evening. furosemide 2021-11 Yes [id number] Take lasix [facility] (LASIX) 40 0-05 02 40 mg BID ity of mg tablet 00:00: [place] 00 Medical Branch metFORMIN 2021-11 Yes [id number] 500mg Take 1 [facility] 500 mg 0-05 tablet by ity of tablet 00:00: mouth in [place] 00 the morning Branch and 1 tablet in the evening. Take with meals. omeprazole 2021-11 Yes [id number] 40mg Take 1 [facility] 40 mg 0-05 capsule by ity of capsule 00:00: mouth in [place] 00 the morning. Branch potassium 2021-11 Yes [id number] 10meq Take 1 [facility] chloride 10 0-05 02 tablet by ity of mEq CR 00:00: mouth [place] tablet 00 every Medical Saturday, Branch Saturday and Saturday. rosuvastati 2021-11 Yes [id number] 20mg Take 1 [facility] n 20 mg 0-05 tablet by ity of tablet 00:00: mouth in [place] 00 the . Branch carvediloL 2021-11 Yes [id number] 25mg Take 1 [facility] 25 mg 0-05 02 tablet by ity of tablet 00:00: mouth in [place] [address] the [facility] morning Branch and 1 tablet in the evening. glimepiride 2021-11 Yes [id number] 2mg Take 1 [facility] 2 mg tablet 0-05 tablet by ity of 00:00: mouth in [place] [address] the morning [place] and 1 tablet in the evening. pioglitazon 2021-11 Yes [id number] 15mg Take 1 [facility] e 15 mg 0-05 tablet by ity of tablet 00:00: mouth in [place] 00 the morning. Branch gabapentin 2021-11 Yes [id number] 600mg Take 1 [facility] 600 mg 0-05 tablet by ity of tablet 00:00: mouth in [place] [address] the [facility] morning Branch and 1 tablet at noon and 1 tablet in the evening. DULoxetine 2021-11 Yes [id number] 60mg Take 1 [facility] 60 mg 0-05 capsule by ity of capsule 00:00: mouth in [place] [address] the [facility] morning [place] and 1 capsule in the evening. hydrALAZINE 2021-11 Yes [id number] 50mg Take 1 [facility] 50 mg 0-05 tablet by ity of tablet 00:00: mouth in [place] [address] the [facility] morning [place] and 1 tablet in the evening. furosemide 2021-11 Yes [id number] Take lasix [facility] (LASIX) 40 0-05 02 40 mg BID ity of mg tablet 00:00: [place] [address] Medical Branch metFORMIN 2021-11 Yes [id number] 500mg Take 1 [facility] 500 mg 0-05 tablet by ity of tablet 00:00: mouth in [place] the morning Branch and 1 tablet in the evening. Take with meals. omeprazole 2021-11 Yes [id number] 40mg Take 1 [facility] 40 mg 0-05 capsule by ity of capsule 00:00: mouth in [place] 00 the morning. Branch potassium 2021-11 Yes [id number] 10meq Take 1 [facility] chloride 10 0-05 02 tablet by ity of mEq CR 00:00: mouth [place] tablet 00 every Medical Saturday, Branch Saturday and Saturday. rosuvastati 2021-11 Yes [id number] 20mg Take 1 [facility] n 20 mg 0-05 tablet by ity of tablet 00:00: mouth in [place] 00 the morning. Branch carvediloL 2021-11 Yes [id number] 25mg Take 1 [facility] 25 mg 0-05 02 tablet by ity of tablet 00:00: mouth in [place] [address] the morning Branch and 1 tablet in the evening. glimepiride 2021-11 Yes [id number] 2mg Take 1 [facility] 2 mg tablet 0-05 tablet by ity of 00:00: mouth in [place] the morning Branch and 1 tablet in the evening. pioglitazon 2021-11 Yes [id number] 15mg Take 1 [facility] e 15 mg 0-05 tablet by ity of tablet 00:00: mouth in [place] 00 the morning. Branch gabapentin 2021-11 Yes [id number] 600mg Take 1 [facility] 600 mg 0-05 tablet by ity of tablet 00:00: mouth in [place] [address] the [facility] morning Branch and 1 tablet at noon and 1 tablet in the evening. DULoxetine 2021-11 Yes [id number] 60mg Take 1 [facility] 60 mg 0-05 capsule by ity of capsule 00:00: mouth in [place] [address] the [facility] morning [place] and 1 capsule in the evening. hydrALAZINE 2021-11 Yes [id number] 50mg Take 1 [facility] 50 mg 0-05 tablet by ity of tablet 00:00: mouth in [place] [address] the [facility] morning Branch and 1 tablet in the evening. furosemide 2021-11 Yes [id number] Take lasix [facility] (LASIX) 40 0-05 02 40 mg BID ity of mg tablet 00:00: [place] 00 Medical Branch metFORMIN 2021-11 Yes [id number] 500mg Take 1 [facility] 500 mg 0-05 tablet by ity of tablet 00:00: mouth in [place] 00 the Medical morning Branch and 1 tablet in the evening. Take with meals. omeprazole 2021-11 Yes [id number] 40mg Take 1 [facility] 40 mg 0-05 capsule by ity of capsule 00:00: mouth in [place] 00 the morning. Branch potassium 2021-11 Yes [id number] 10meq Take 1 [facility] chloride 10 0-05 02 tablet by ity of mEq CR 00:00: mouth [place] tablet 00 every Medical Saturday, Branch Saturday and Saturday. rosuvastati 2021-11 Yes [id number] 20mg Take 1 [facility] n 20 mg 0-05 tablet by ity of tablet 00:00: mouth in [place] 00 the morning. Branch carvediloL 2021-11 Yes [id number] 25mg Take 1 [facility] 25 mg 0-05 02 tablet by ity of tablet 00:00: mouth in [place] the Medical morning Branch and 1 tablet in the evening. glimepiride 2021-11 Yes [id number] 2mg Take 1 [facility] 2 mg tablet 0-05 tablet by ity of 00:00: mouth in [place] the Medical morning Branch and 1 tablet in the evening. pioglitazon 2021-11 Yes [id number] 15mg Take 1 [facility] e 15 mg 0-05 tablet by ity of tablet 00:00: mouth in [place] 00 the morning. Branch gabapentin 2021-11 Yes [id number] 600mg Take 1 [facility] 600 mg 0-05 tablet by ity of tablet 00:00: mouth in [place] 00 the Medical morning Branch and 1 tablet at noon and 1 tablet in the evening. DULoxetine 2021-11 Yes [id number] 60mg Take 1 [facility] 60 mg 0-05 capsule by ity of capsule 00:00: mouth in [place] 00 the Medical morning Branch and 1 capsule in the evening. hydrALAZINE 2021-11 Yes [id number] 50mg Take 1 [facility] 50 mg 0-05 tablet by ity of tablet 00:00: mouth in [place] 00 the Medical morning Branch and 1 tablet in the evening. furosemide 2021-11 Yes [id number] Take lasix [facility] (LASIX) 40 0-05 02 40 mg BID ity of mg tablet 00:00: [place] [address] Medical [place] metFORMIN 2021-11 Yes [id number] 500mg Take 1 [facility] 500 mg 0-05 tablet by ity of tablet 00:00: mouth in [place] the morning [place] and 1 tablet in the evening. Take with meals. omeprazole 2021-11 Yes [id number] 40mg Take 1 [facility] 40 mg 0-05 capsule by ity of capsule 00:00: mouth in [place] 00 the morning. Branch potassium 2021-11 Yes [id number] 10meq Take 1 [facility] chloride 10 0-05 02 tablet by ity of mEq CR 00:00: mouth [place] tablet 00 every Medical Saturday, Branch Saturday and Saturday. rosuvastati 2021-11 Yes [id number] 20mg Take 1 [facility] n 20 mg 0-05 tablet by ity of tablet 00:00: mouth in [place] the morning. Branch carvediloL 2021-11 Yes [id number] 25mg Take 1 [facility] 25 mg 0-05 02 tablet by ity of tablet 00:00: mouth in [place] the [facility] morning [place] and 1 tablet in the evening. glimepiride 2021-11 Yes [id number] 2mg Take 1 [facility] 2 mg tablet 0-05 tablet by ity of 00:00: mouth in [place] the [facility] morning Branch and 1 tablet in the evening. pioglitazon 2021-11 Yes [id number] 15mg Take 1 [facility] e 15 mg 0-05 tablet by ity of tablet 00:00: mouth in [place] the morning. Branch gabapentin 2021-11 Yes [id number] 600mg Take 1 [facility] 600 mg 0-05 tablet by ity of tablet 00:00: mouth in [place] [address] the [facility] morning Branch and 1 tablet at noon and 1 tablet in the evening. DULoxetine 2021-11 Yes [id number] 60mg Take 1 [facility] 60 mg 0-05 capsule by ity of capsule 00:00: mouth in [place] [address] the [facility] morning [place] and 1 capsule in the evening. hydrALAZINE 2021-11 Yes [id number] 50mg Take 1 [facility] 50 mg 0-05 tablet by ity of tablet 00:00: mouth in [place] 00 the Medical morning Branch and 1 tablet in the evening. furosemide 2021-11 Yes [id number] Take lasix [facility] (LASIX) 40 0-05 02 40 mg BID ity of mg tablet 00:00: [place] 00 Medical Branch metFORMIN 2021-11 Yes [id number] 500mg Take 1 [facility] 500 mg 0-05 tablet by ity of tablet 00:00: mouth in [place] the morning Branch and 1 tablet in the evening. Take with meals. omeprazole 2021-11 Yes [id number] 40mg Take 1 [facility] 40 mg 0-05 capsule by ity of capsule 00:00: mouth in [place] the morning. Branch potassium 2021-11 Yes [id number] 10meq Take 1 [facility] chloride 10 0-05 02 tablet by ity of mEq CR 00:00: mouth [place] tablet 00 every Medical Saturday, Branch Saturday and Saturday. rosuvastati 2021-11 Yes [id number] 20mg Take 1 [facility] n 20 mg 0-05 tablet by ity of tablet 00:00: mouth in [place] the morning. Branch carvediloL 2021-11 Yes [id number] 25mg Take 1 [facility] 25 mg 0-05 02 tablet by ity of tablet 00:00: mouth in [place] the morning Branch and 1 tablet in the evening. glimepiride 2021-11 Yes [id number] 2mg Take 1 [facility] 2 mg tablet 0-05 tablet by ity of 00:00: mouth in [place] the morning Branch and 1 tablet in the evening. pioglitazon 2021-11 Yes [id number] 15mg Take 1 [facility] e 15 mg 0-05 tablet by [facility] tablet 00:00: mouth in [place] 00 the morning. Branch gabapentin 2021-11 Yes [id number] 600mg Take 1 [facility] 600 mg 0-05 tablet by [facility] of tablet 00:00: mouth in [place] [address] the morning Branch and 1 tablet at noon and 1 tablet in the evening. DULoxetine 2021-11 Yes [id number] 60mg Take 1 [facility] 60 mg 0-05 capsule by [facility] of capsule 00:00: mouth in [place] [address] the Medical morning Branch and 1 capsule in the evening. hydrALAZINE 2021-11 Yes [id number] 50mg Take 1 [facility] 50 mg 0-05 tablet by [facility] of tablet 00:00: mouth in [place] 00 the Medical morning Branch and 1 tablet in the evening. furosemide 2021-11 Yes [id number] Take lasix [facility] (LASIX) 40 0-05 02 40 mg BID ity of mg tablet 00:00: [place] [address] Medical [place] metFORMIN 2021-11 Yes [id number] 500mg Take 1 [facility] 500 mg 0-05 tablet by [facility] of tablet 00:00: mouth in [place] the morning Branch and 1 tablet in the evening. Take with meals. omeprazole 2021-11 Yes [id number] 40mg Take 1 [facility] 40 mg 0-05 capsule by [facility] of capsule 00:00: mouth in [place] 00 the morning. Branch potassium 2021-11 Yes [id number] 10meq Take 1 [facility] chloride 10 0-05 02 tablet by it[facility] of mEq CR 00:00: mouth [place] tablet 00 every Medical Saturday, Branch Saturday and Saturday. rosuvastati 2021-11 Yes [id number] 20mg Take 1 [facility] n 20 mg 0-05 tablet by [facility] of tablet 00:00: mouth in [place] the morning. Branch carvediloL 2021-11 Yes [id number] 25mg Take 1 [facility] 25 mg 0-05 02 tablet by [facility] of tablet 00:00: mouth in [place] the morning Branch and 1 tablet in the evening. glimepiride 2021-11 Yes [id number] 2mg Take 1 [facility] 2 mg tablet 0-05 tablet by [facility] of 00:00: mouth in [place] the morning Branch and 1 tablet in the evening. pioglitazon 2021-11 Yes [id number] 15mg Take 1 [facility] e 15 mg 0-05 tablet by [facility] of tablet 00:00: mouth in [place] [address] the morning. Branch gabapentin 2021-11 Yes [id number] 600mg Take 1 [facility] 600 mg 0-05 tablet by [facility] of tablet 00:00: mouth in [place] [address] the Medical morning Branch and 1 tablet at noon and 1 tablet in the evening. DULoxetine 2021-11 Yes [id number] 60mg Take 1 [facility] 60 mg 0-05 capsule by [facility] of capsule 00:00: mouth in [place] [address] the [facility] morning Branch and 1 capsule in the evening. hydrALAZINE 2021-11 Yes [id number] 50mg Take 1 [facility] 50 mg 0-05 tablet by [facility] of tablet 00:00: mouth in [place] 00 the morning Branch and 1 tablet in the evening. furosemide 2021-11 Yes [id number] Take lasix [facility] (LASIX) 40 0-05 02 40 mg BID it[facility] of mg tablet 00:00: [place] 00 Medical [place] metFORMIN 2021-11 Yes [id number] 500mg Take 1 [facility] 500 mg 0-05 tablet by [facility] of tablet 00:00: mouth in [place] 00 the morning Branch and 1 tablet in the evening. Take with meals. omeprazole 2021-11 Yes [id number] 40mg Take 1 [facility] 40 mg 0-05 capsule by [facility] of capsule 00:00: mouth in [place] 00 the morning. Branch potassium 2021-11 Yes [id number] 10meq Take 1 [facility] chloride 10 0-05 02 tablet by it[facility] of mEq CR 00:00: mouth [place] tablet 00 every Medical Saturday, Branch Saturday and Saturday. rosuvastati 2021-11 Yes [id number] 20mg Take 1 [facility] n 20 mg 0-05 tablet by [facility] of tablet 00:00: mouth in [place] 00 the morning. Branch carvediloL 2021-11 Yes [id number] 25mg Take 1 [facility] 25 mg 0-05 02 tablet by [facility] of tablet 00:00: mouth in [place] the morning Branch and 1 tablet in the evening. glimepiride 2021-11 Yes [id number] 2mg Take 1 [facility] 2 mg tablet 0-05 tablet by [facility] of 00:00: mouth in [place] the morning Branch and 1 tablet in the evening. pioglitazon 2021-11 Yes [id number] 15mg Take 1 [facility] e 15 mg 0-05 tablet by [facility] of tablet 00:00: mouth in [place] 00 the morning. Branch gabapentin 2021-11 Yes [id number] 600mg Take 1 [facility] 600 mg 0-05 tablet by [facility] of tablet 00:00: mouth in [place] [address] the Medical morning Branch and 1 tablet at noon and 1 tablet in the evening. DULoxetine 2021-11 Yes [id number] 60mg Take 1 [facility] 60 mg 0-05 capsule by [facility] of capsule 00:00: mouth in [place] 00 the Medical morning Branch and 1 capsule in the evening. hydrALAZINE 2021-11 Yes [id number] 50mg Take 1 [facility] 50 mg 0-05 tablet by [facility] of tablet 00:00: mouth in [place] the morning Branch and 1 tablet in the evening. furosemide 2021-11 Yes [id number] Take lasix [facility] (LASIX) 40 0-05 02 40 mg BID ity of mg tablet 00:00: [place] [address] Medical [place] metFORMIN 2021-11 Yes [id number] 500mg Take 1 [facility] 500 mg 0-05 tablet by [facility] of tablet 00:00: mouth in [place] the morning Branch and 1 tablet in the evening. Take with meals. omeprazole 2021-11 Yes [id number] 40mg Take 1 [facility] 40 mg 0-05 capsule by [facility] of capsule 00:00: mouth in [place] the . Branch potassium 2021-11 Yes [id number] 10meq Take 1 [facility] chloride 10 0-05 02 tablet by ity of mEq CR 00:00: mouth [place] tablet 00 every Medical Saturday, Branch Saturday and Saturday. rosuvastati 2021-11 Yes [id number] 20mg Take 1 [facility] n 20 mg 0-05 tablet by ity of tablet 00:00: mouth in [place] the . Branch carvediloL 2021-11 Yes [id number] 25mg Take 1 [facility] 25 mg 0-05 02 tablet by ity of tablet 00:00: mouth in [place] [address] the [place] and 1 tablet in the evening. glimepiride 2021-11 Yes [id number] 2mg Take 1 [facility] 2 mg tablet 0-05 tablet by ity of 00:00: mouth in [place] the morning Branch and 1 tablet in the evening. pioglitazon 2021-11 Yes [id number] 15mg Take 1 [facility] e 15 mg 0-05 tablet by ity of tablet 00:00: mouth in [place] [address] the morning. Branch gabapentin 2021-11 Yes [id number] 600mg Take 1 [facility] 600 mg 0-05 tablet by it[facility] of tablet 00:00: mouth in [place] [address] the morning Branch and 1 tablet at noon and 1 tablet in the evening. DULoxetine 2021-11 Yes [id number] 60mg Take 1 [facility] 60 mg 0-05 capsule by it[facility] of capsule 00:00: mouth in [place] the morning Branch and 1 capsule in the evening. hydrALAZINE 2021-11 Yes [id number] 50mg Take 1 [facility] 50 mg 0-05 tablet by [facility] of tablet 00:00: mouth in [place] the morning Branch and 1 tablet in the evening. furosemide 2021-11 Yes [id number] Take lasix [facility] (LASIX) 40 0-05 02 40 mg BID ity of mg tablet 00:00: [place] [address] Medical [place] metFORMIN 2021-11 Yes [id number] 500mg Take 1 [facility] 500 mg 0-05 tablet by ity of tablet 00:00: mouth in [place] the morning Branch and 1 tablet in the evening. Take with meals. omeprazole 2021-11 Yes [id number] 40mg Take 1 [facility] 40 mg 0-05 capsule by it[facility] of capsule 00:00: mouth in [place] the . [place] potassium 2021-11 Yes [id number] 10meq Take 1 [facility] chloride 10 0-05 02 tablet by ity of mEq CR 00:00: mouth [place] tablet 00 every Medical Saturday, Branch Saturday and Saturday. rosuvastati 2021-11 Yes [id number] 20mg Take 1 [facility] n 20 mg 0-05 tablet by ity of tablet 00:00: mouth in [place] the . Branch carvediloL 2021-11 Yes [id number] 25mg Take 1 [facility] 25 mg 0-05 02 tablet by ity of tablet 00:00: mouth in [place] [address] the [place] and 1 tablet in the evening. glimepiride 2021-11 Yes [id number] 2mg Take 1 [facility] 2 mg tablet 0-05 tablet by ity of 00:00: mouth in [place] [address] the [facility] morning [place] and 1 tablet in the evening. pioglitazon 2021-11 Yes [id number] 15mg Take 1 [facility] e 15 mg 0-05 tablet by ity of tablet 00:00: mouth in [place] [address] the . Branch gabapentin 2021-11 Yes [id number] 600mg Take 1 [facility] 600 mg 0-05 tablet by ity of tablet 00:00: mouth in [place] [address] the morning [place] and 1 tablet at noon and 1 tablet in the evening. DULoxetine 2021-11 Yes [id number] 60mg Take 1 [facility] 60 mg 0-05 capsule by it[facility] of capsule 00:00: mouth in [place] 00 the morning Branch and 1 capsule in the evening. hydrALAZINE 2021-11 Yes [id number] 50mg Take 1 [facility] 50 mg 0-05 tablet by ity of tablet 00:00: mouth in [place] 00 the morning Branch and 1 tablet in the evening. furosemide 2021-11 Yes [id number] Take lasix [facility] (LASIX) 40 0-05 02 40 mg BID ity of mg tablet 00:00: [place] 00 [facility] metFORMIN 2021-11 Yes [id number] 500mg Take 1 [facility] 500 mg 0-05 tablet by ity of tablet 00:00: mouth in [place] the morning Branch and 1 tablet in the evening. Take with meals. omeprazole 2021-11 Yes [id number] 40mg Take 1 [facility] 40 mg 0-05 capsule by it[facility] of capsule 00:00: mouth in [place] the morning. Branch potassium 2021-11 Yes [id number] 10meq Take 1 [facility] chloride 10 0-05 02 tablet by ity of mEq CR 00:00: mouth [place] tablet 00 every Medical Saturday, Branch Saturday and Saturday. rosuvastati 2021-11 Yes [id number] 20mg Take 1 [facility] n 20 mg 0-05 tablet by it[facility] of tablet 00:00: mouth in [place] the . Branch carvediloL 2021-11 Yes [id number] 25mg Take 1 [facility] 25 mg 0-05 02 tablet by ity of tablet 00:00: mouth in [place] the morning Branch and 1 tablet in the evening. glimepiride 2021-11 Yes [id number] 2mg Take 1 [facility] 2 mg tablet 0-05 tablet by ity of 00:00: mouth in [place] the morning Branch and 1 tablet in the evening. pioglitazon 2021-11 Yes [id number] 15mg Take 1 [facility] e 15 mg 0-05 tablet by ity of tablet 00:00: mouth in [place] 00 the morning. Branch gabapentin 2021-11 Yes [id number] 600mg Take 1 [facility] 600 mg 0-05 tablet by ity of tablet 00:00: mouth in [place] [address] the morning Branch and 1 tablet at noon and 1 tablet in the evening. DULoxetine 2021-11 Yes [id number] 60mg Take 1 [facility] 60 mg 0-05 capsule by ity of capsule 00:00: mouth in [place] the Medical morning Branch and 1 capsule in the evening. hydrALAZINE 2021-11 Yes [id number] 50mg Take 1 [facility] 50 mg 0-05 tablet by it[facility] of tablet 00:00: mouth in [place] 00 the Medical morning Branch and 1 tablet in the evening. furosemide 2021-11 Yes [id number] Take lasix [facility] (LASIX) 40 0-05 02 40 mg BID ity of mg tablet 00:00: [place] 00 Medical Branch metFORMIN 2021-11 Yes [id number] 500mg Take 1 [facility] 500 mg 0-05 tablet by ity of tablet 00:00: mouth in [place] 00 the morning Branch and 1 tablet in the evening. Take with meals. omeprazole 2021-11 Yes [id number] 40mg Take 1 [facility] 40 mg 0-05 capsule by ity of capsule 00:00: mouth in [place] the morning. Branch potassium 2021-11 Yes [id number] 10meq Take 1 [facility] chloride 10 0-05 02 tablet by ity of mEq CR 00:00: mouth [place] tablet 00 every Medical Saturday, Branch Saturday and Saturday. rosuvastati 2021-11 Yes [id number] 20mg Take 1 [facility] n 20 mg 0-05 tablet by ity of tablet 00:00: mouth in [place] the morning. Branch carvediloL 2021-11 Yes [id number] 25mg Take 1 [facility] 25 mg 0-05 02 tablet by ity of tablet 00:00: mouth in [place] the morning Branch and 1 tablet in the evening. glimepiride 2021-11 Yes [id number] 2mg Take 1 [facility] 2 mg tablet 0-05 tablet by ity of 00:00: mouth in [place] the morning Branch and 1 tablet in the evening. pioglitazon 2021-11 Yes [id number] 15mg Take 1 [facility] e 15 mg 0-05 tablet by ity of tablet 00:00: mouth in [place] 00 the morning. Branch gabapentin 2021-11 Yes [id number] 600mg Take 1 [facility] 600 mg 0-05 tablet by ity of tablet 00:00: mouth in [place] [address] the Medical morning Branch and 1 tablet at noon and 1 tablet in the evening. DULoxetine 2021-11 Yes [id number] 60mg Take 1 [facility] 60 mg 0-05 capsule by ity of capsule 00:00: mouth in [place] 00 the Medical morning Branch and 1 capsule in the evening. hydrALAZINE 2021-11 Yes [id number] 50mg Take 1 [facility] 50 mg 0-05 tablet by ity of tablet 00:00: mouth in [place] 00 the Medical morning Branch and 1 tablet in the evening. furosemide 2021-11 Yes [id number] Take lasix [facility] (LASIX) 40 0-05 02 40 mg BID ity of mg tablet 00:00: [place] 00 [facility] omeprazole 2021-11 Yes [id number] 40mg Take 1 [facility] 40 mg 0-05 capsule by ity of capsule 00:00: mouth in [place] 00 the morning. Branch potassium 2021-11 Yes [id number] 10meq Take 1 [facility] chloride 10 0-05 02 tablet by ity of mEq CR 00:00: mouth [place] tablet 00 every Medical Saturday, Branch Saturday and Saturday. rosuvastati 2021-11 Yes [id number] 20mg Take 1 [facility] n 20 mg 0-05 tablet by ity of tablet 00:00: mouth in [place] 00 the morning. Branch carvediloL 2021-11 Yes [id number] 25mg Take 1 [facility] 25 mg 0-05 02 tablet by ity of tablet 00:00: mouth in [place] 00 the [facility] morning Branch and 1 tablet in the evening. pioglitazon 2021-11 Yes [id number] 15mg Take 1 [facility] e 15 mg 0-05 tablet by ity of tablet 00:00: mouth in [place] the morning. Branch gabapentin 2021-11 Yes [id number] 600mg Take 1 [facility] 600 mg 0-05 tablet by ity of tablet 00:00: mouth in [place] 00 the Medical morning Branch and 1 tablet at noon and 1 tablet in the evening. DULoxetine 2021-11 Yes [id number] 60mg Take 1 [facility] 60 mg 0-05 capsule by ity of capsule 00:00: mouth in [place] [address] the [facility] morning Branch and 1 capsule in the evening. hydrALAZINE 2021-11 Yes [id number] 50mg Take 1 [facility] 50 mg 0-05 tablet by ity of tablet 00:00: mouth in [place] 00 the Medical morning Branch and 1 tablet in the evening. furosemide 2021-11 Yes [id number] Take lasix [facility] (LASIX) 40 0-05 02 40 mg BID ity of mg tablet 00:00: [place] 00 Medical Branch omeprazole 2021-11 Yes [id number] 40mg Take 1 [facility] 40 mg 0-05 capsule by ity of capsule 00:00: mouth in [place] 00 the Medical morning. Branch potassium 2021-11 Yes [id number] 10meq Take 1 [facility] chloride 10 0-05 02 tablet by ity of mEq CR 00:00: mouth [place] tablet 00 every Medical Saturday, Branch Saturday and Saturday. rosuvastati 2021-11 Yes [id number] 20mg Take 1 [facility] n 20 mg 0-05 tablet by ity of tablet 00:00: mouth in [place] 00 the Medical morning. Branch carvediloL 2021-11 Yes [id number] 25mg Take 1 [facility] 25 mg 0-05 02 tablet by ity of tablet 00:00: mouth in [place] the Medical morning Branch and 1 tablet in the evening. pioglitazon 2021-11 Yes [id number] 15mg Take 1 [facility] e 15 mg 0-05 tablet by ity of tablet 00:00: mouth in [place] the Medical morning. Branch gabapentin 2021-11 Yes [id number] 600mg Take 1 [facility] 600 mg 0-05 tablet by ity of tablet 00:00: mouth in [place] the Medical morning Branch and 1 tablet at noon and 1 tablet in the evening. DULoxetine 2021-11 Yes [id number] 60mg Take 1 [facility] 60 mg 0-05 capsule by ity of capsule 00:00: mouth in [place] the Medical morning Branch and 1 capsule in the evening. hydrALAZINE 2021-11 Yes [id number] 50mg Take 1 [facility] 50 mg 0-05 tablet by ity of tablet 00:00: mouth in [place] the Medical morning Branch and 1 tablet in the evening. furosemide 2021-11 Yes [id number] Take lasix [facility] (LASIX) 40 0-05 02 40 mg BID ity of mg tablet 00:00: [place] 00 Medical Branch omeprazole 2021-11 Yes [id number] 40mg Take 1 [facility] 40 mg 0-05 capsule by ity of capsule 00:00: mouth in [place] 00 the Medical morning. Branch potassium 2021-11 Yes [id number] 10meq Take 1 [facility] chloride 10 0-05 02 tablet by ity of mEq CR 00:00: mouth [place] tablet 00 every Medical Saturday, Branch Saturday and Saturday. rosuvastati 2021-11 Yes [id number] 20mg Take 1 [facility] n 20 mg 0-05 tablet by ity of tablet 00:00: mouth in [place] the Medical morning. Branch carvediloL 2021-11 Yes [id number] 25mg Take 1 [facility] 25 mg 0-05 02 tablet by ity of tablet 00:00: mouth in [place] 00 the Medical morning Branch and 1 tablet in the evening. pioglitazon 2021-11 Yes [id number] 15mg Take 1 [facility] e 15 mg 0-05 tablet by ity of tablet 00:00: mouth in [place] the morning. Branch gabapentin 2021-11 Yes [id number] 600mg Take 1 [facility] 600 mg 0-05 tablet by ity of tablet 00:00: mouth in [place] the Medical morning Branch and 1 tablet at noon and 1 tablet in the evening. DULoxetine 2021-11 Yes [id number] 60mg Take 1 [facility] 60 mg 0-05 capsule by ity of capsule 00:00: mouth in [place] the Medical morning Branch and 1 capsule in the evening. hydrALAZINE 2021-11 Yes [id number] 50mg Take 1 [facility] 50 mg 0-05 tablet by ity of tablet 00:00: mouth in [place] the Medical morning Branch and 1 tablet in the evening. furosemide 2021-11 Yes [id number] Take lasix [facility] (LASIX) 40 0-05 02 40 mg BID ity of mg tablet 00:00: [place] 00 Medical Branch omeprazole 2021-11 Yes [id number] 40mg Take 1 [facility] 40 mg 0-05 capsule by ity of capsule 00:00: mouth in [place] the morning. Branch potassium 2021-11 Yes [id number] 10meq Take 1 [facility] chloride 10 0-05 02 tablet by ity of mEq CR 00:00: mouth [place] tablet 00 every Medical Saturday, Branch Saturday and Saturday. rosuvastati 2021-11 Yes [id number] 20mg Take 1 [facility] n 20 mg 0-05 tablet by ity of tablet 00:00: mouth in [place] 00 the Medical morning. Branch carvediloL 2021-11 Yes [id number] 25mg Take 1 [facility] 25 mg 0-05 02 tablet by ity of tablet 00:00: mouth in [place] the morning Branch and 1 tablet in the evening. pioglitazon 2021-11 Yes [id number] 15mg Take 1 [facility] e 15 mg 0-05 tablet by ity of tablet 00:00: mouth in [place] the morning. Branch gabapentin 2021-11 Yes [id number] 600mg Take 1 [facility] 600 mg 0-05 tablet by ity of tablet 00:00: mouth in [place] the morning Branch and 1 tablet at noon and 1 tablet in the evening. DULoxetine 2021-11 Yes [id number] 60mg Take 1 [facility] 60 mg 0-05 capsule by ity of capsule 00:00: mouth in [place] the morning Branch and 1 capsule in the evening. hydrALAZINE 2021-11 Yes [id number] 50mg Take 1 [facility] 50 mg 0-05 tablet by ity of tablet 00:00: mouth in [place] the morning Branch and 1 tablet in the evening. furosemide 2021-11 Yes [id number] Take lasix [facility] (LASIX) 40 0-05 02 40 mg BID ity of mg tablet 00:00: [place] 00 [facility] omeprazole 2021-11 Yes [id number] 40mg Take 1 [facility] 40 mg 0-05 capsule by ity of capsule 00:00: mouth in [place] the . Branch potassium 2021-11 Yes [id number] 10meq Take 1 [facility] chloride 10 0-05 02 tablet by ity of mEq CR 00:00: mouth [place] tablet 00 every Medical Saturday, Branch Saturday and Saturday. rosuvastati 2021-11 Yes [id number] 20mg Take 1 [facility] n 20 mg 0-05 tablet by ity of tablet 00:00: mouth in [place] the morning. Branch carvediloL 2021-11 Yes [id number] 25mg Take 1 [facility] 25 mg 0-05 02 tablet by ity of tablet 00:00: mouth in [place] the morning Branch and 1 tablet in the evening. pioglitazon 2021-11 Yes [id number] 15mg Take 1 [facility] e 15 mg 0-05 tablet by ity of tablet 00:00: mouth in [place] 00 the morning. Branch gabapentin 2021-11 Yes [id number] 600mg Take 1 [facility] 600 mg 0-05 tablet by ity of tablet 00:00: mouth in [place] the morning Branch and 1 tablet at noon and 1 tablet in the evening. DULoxetine 2021-11 Yes [id number] 60mg Take 1 [facility] 60 mg 0-05 capsule by ity of capsule 00:00: mouth in [place] 00 the morning Branch and 1 capsule in the evening. hydrALAZINE 2021-11 Yes [id number] 50mg Take 1 [facility] 50 mg 0-05 tablet by ity of tablet 00:00: mouth in [place] the morning Branch and 1 tablet in the evening. furosemide 2021-11 Yes [id number] Take lasix [facility] (LASIX) 40 0-05 02 40 mg BID ity of mg tablet 00:00: [place] [address] Medical [place] omeprazole 2021-11 Yes [id number] 40mg Take 1 [facility] 40 mg 0-05 capsule by ity of capsule 00:00: mouth in [place] the . Branch potassium 2021-11 Yes [id number] 10meq Take 1 [facility] chloride 10 0-05 02 tablet by ity of mEq CR 00:00: mouth [place] tablet 00 every Medical Saturday, Branch Saturday and Saturday. rosuvastati 2021-11 Yes [id number] 20mg Take 1 [facility] n 20 mg 0-05 tablet by ity of tablet 00:00: mouth in [place] the . Branch carvediloL 2021-11 Yes [id number] 25mg Take 1 [facility] 25 mg 0-05 02 tablet by ity of tablet 00:00: mouth in [place] the Medical morning Branch and 1 tablet in the evening. pioglitazon 2021-11 Yes [id number] 15mg Take 1 [facility] e 15 mg 0-05 tablet by ity of tablet 00:00: mouth in [place] the morning. Branch gabapentin 2021-11 Yes [id number] 600mg Take 1 [facility] 600 mg 0-05 tablet by ity of tablet 00:00: mouth in [place] [address] the Medical morning Branch and 1 tablet at noon and 1 tablet in the evening. DULoxetine 2021-11 Yes [id number] 60mg Take 1 [facility] 60 mg 0-05 capsule by ity of capsule 00:00: mouth in [place] [address] the Medical morning Branch and 1 capsule in the evening. hydrALAZINE 2021-11 Yes [id number] 50mg Take 1 [facility] 50 mg 0-05 tablet by ity of tablet 00:00: mouth in [place] the [facility] morning Branch and 1 tablet in the evening. furosemide 2021-11 Yes [id number] Take lasix [facility] (LASIX) 40 0-05 02 40 mg BID ity of mg tablet 00:00: [place] 00 Medical Branch omeprazole 2021-11 Yes [id number] 40mg Take 1 [facility] 40 mg 0-05 capsule by ity of capsule 00:00: mouth in [place] the morning. Branch potassium 2021-11 Yes [id number] 10meq Take 1 [facility] chloride 10 0-05 02 tablet by ity of mEq CR 00:00: mouth [place] tablet 00 every Medical Saturday, Branch Saturday and Saturday. rosuvastati 2021-11 Yes [id number] 20mg Take 1 [facility] n 20 mg 0-05 tablet by ity of tablet 00:00: mouth in [place] the morning. Branch carvediloL 2021-11 Yes [id number] 25mg Take 1 [facility] 25 mg 0-05 02 tablet by ity of tablet 00:00: mouth in [place] [address] the [facility] morning [place] and 1 tablet in the evening. pioglitazon 2021-11 Yes [id number] 15mg Take 1 [facility] e 15 mg 0-05 tablet by ity of tablet 00:00: mouth in [place] the morning. Branch gabapentin 2021-11 Yes [id number] 600mg Take 1 [facility] 600 mg 0-05 tablet by ity of tablet 00:00: mouth in [place] [address] the [facility] morning Branch and 1 tablet at noon and 1 tablet in the evening. DULoxetine 2021-11 Yes [id number] 60mg Take 1 [facility] 60 mg 0-05 capsule by ity of capsule 00:00: mouth in [place] [address] the [facility] morning Branch and 1 capsule in the evening. hydrALAZINE 2021-11 Yes [id number] 50mg Take 1 [facility] 50 mg 0-05 tablet by ity of tablet 00:00: mouth in [place] [address] the [facility] morning [place] and 1 tablet in the evening. furosemide 2021-11 Yes [id number] Take lasix [facility] (LASIX) 40 0-05 02 40 mg BID ity of mg tablet 00:00: [place] 00 Medical Branch omeprazole 2021-11 Yes [id number] 40mg Take 1 [facility] 40 mg 0-05 capsule by ity of capsule 00:00: mouth in [place] the Medical morning. Branch potassium 2021-11 Yes [id number] 10meq Take 1 [facility] chloride 10 0-05 02 tablet by ity of mEq CR 00:00: mouth [place] tablet 00 every Medical Saturday, Branch Saturday and Saturday. rosuvastati 2021-11 Yes [id number] 20mg Take 1 [facility] n 20 mg 0-05 tablet by ity of tablet 00:00: mouth in [place] the Medical morning. Branch carvediloL 2021-11 Yes [id number] 25mg Take 1 [facility] 25 mg 0-05 02 tablet by ity of tablet 00:00: mouth in [place] the Medical morning Branch and 1 tablet in the evening. pioglitazon 2021-11 Yes [id number] 15mg Take 1 [facility] e 15 mg 0-05 tablet by ity of tablet 00:00: mouth in [place] the Medical morning. Branch gabapentin 2021-11 Yes [id number] 600mg Take 1 [facility] 600 mg 0-05 tablet by ity of tablet 00:00: mouth in [place] the Medical morning Branch and 1 tablet at noon and 1 tablet in the evening. DULoxetine 2021-11 Yes [id number] 60mg Take 1 [facility] 60 mg 0-05 capsule by ity of capsule 00:00: mouth in [place] the Medical morning Branch and 1 capsule in the evening. hydrALAZINE 2021-11 Yes [id number] 50mg Take 1 [facility] 50 mg 0-05 tablet by ity of tablet 00:00: mouth in [place] the Medical morning Branch and 1 tablet in the evening. furosemide 2021-11 Yes [id number] Take lasix [facility] (LASIX) 40 0-05 02 40 mg BID ity of mg tablet 00:00: [place] 00 Medical Branch omeprazole 2021-11 Yes [id number] 40mg Take 1 [facility] 40 mg 0-05 capsule by ity of capsule 00:00: mouth in [place] the Medical morning. Branch potassium 2021-11 Yes [id number] 10meq Take 1 [facility] chloride 10 0-05 02 tablet by ity of mEq CR 00:00: mouth [place] tablet 00 every Medical Saturday, Branch Saturday and Saturday. rosuvastati 2021-11 Yes [id number] 20mg Take 1 [facility] n 20 mg 0-05 tablet by ity of tablet 00:00: mouth in [place] the morning. Branch carvediloL 2021-11 Yes [id number] 25mg Take 1 [facility] 25 mg 0-05 02 tablet by ity of tablet 00:00: mouth in [place] the Medical morning Branch and 1 tablet in the evening. pioglitazon 2021-11 Yes [id number] 15mg Take 1 [facility] e 15 mg 0-05 tablet by ity of tablet 00:00: mouth in [place] the morning. Branch gabapentin 2021-11 Yes [id number] 600mg Take 1 [facility] 600 mg 0-05 tablet by [facility] tablet 00:00: mouth in [place] the Medical morning Branch and 1 tablet at noon and 1 tablet in the evening. DULoxetine 2021-11 Yes [id number] 60mg Take 1 [facility] 60 mg 0-05 capsule by [facility] capsule 00:00: mouth in [place] the Medical morning Branch and 1 capsule in the evening. hydrALAZINE 2021-11 Yes [id number] 50mg Take 1 [facility] 50 mg 0-05 tablet by [facility] tablet 00:00: mouth in [place] the Medical morning Branch and 1 tablet in the evening. furosemide 2021-11 Yes [id number] Take lasix [facility] (LASIX) 40 0-05 02 40 mg BID [facility] mg tablet 00:00: [place] 00 [facility] Branch omeprazole 2021-11 Yes [id number] 40mg Take 1 [facility] 40 mg 0-05 capsule by [facility] capsule 00:00: mouth in [place] the morning. Branch potassium 2021-11 Yes [id number] 10meq Take 1 [facility] chloride 10 0-05 02 tablet by [facility] of mEq CR 00:00: mouth [place] tablet 00 every Medical Saturday, Branch Saturday and Saturday. rosuvastati 2021-11 Yes [id number] 20mg Take 1 [facility] n 20 mg 0-05 tablet by [facility] tablet 00:00: mouth in [place] the morning. Branch carvediloL 2021-11 Yes [id number] 25mg Take 1 [facility] 25 mg 0-05 02 tablet by [facility] of tablet 00:00: mouth in [place] 00 the Medical morning Branch and 1 tablet in the evening. pioglitazon 2021-11 Yes [id number] 15mg Take 1 [facility] e 15 mg 0-05 tablet by [facility] of tablet 00:00: mouth in [place] the morning. Branch gabapentin 2021-11 Yes [id number] 600mg Take 1 [facility] 600 mg 0-05 tablet by [facility] tablet 00:00: mouth in [place] the morning Branch and 1 tablet at noon and 1 tablet in the evening. DULoxetine 2021-11 Yes [id number] 60mg Take 1 [facility] 60 mg 0-05 capsule by [facility] capsule 00:00: mouth in [place] the Medical morning Branch and 1 capsule in the evening. hydrALAZINE 2021-11 Yes [id number] 50mg Take 1 [facility] 50 mg 0-05 tablet by [facility] tablet 00:00: mouth in [place] the morning Branch and 1 tablet in the evening. furosemide 2021-11 Yes [id number] Take lasix [facility] (LASIX) 40 0-05 02 40 mg BID [facility] of mg tablet 00:00: [place] 00 [facility] omeprazole 2021-11 Yes [id number] 40mg Take 1 [facility] 40 mg 0-05 capsule by [facility] of capsule 00:00: mouth in [place] the morning. Branch potassium 2021-11 Yes [id number] 10meq Take 1 [facility] chloride 10 0-05 02 tablet by [facility] of mEq CR 00:00: mouth [place] tablet 00 every Medical Saturday, Branch Saturday and Saturday. rosuvastati 2021-11 Yes [id number] 20mg Take 1 [facility] n 20 mg 0-05 tablet by [facility] of tablet 00:00: mouth in [place] the morning. Branch carvediloL 2021-11 Yes [id number] 25mg Take 1 [facility] 25 mg 0-05 02 tablet by [facility] of tablet 00:00: mouth in [place] the Medical morning Branch and 1 tablet in the evening. pioglitazon 2021-11 Yes [id number] 15mg Take 1 [facility] e 15 mg 0-05 tablet by [facility] of tablet 00:00: mouth in [place] the morning. Branch gabapentin 2021-11 Yes [id number] 600mg Take 1 [facility] 600 mg 0-05 tablet by [facility] tablet 00:00: mouth in [place] 00 the morning Branch and 1 tablet at noon and 1 tablet in the evening. DULoxetine 2021-11 Yes [id number] 60mg Take 1 [facility] 60 mg 0-05 capsule by [facility] capsule 00:00: mouth in [place] the morning Branch and 1 capsule in the evening. hydrALAZINE 2021-11 Yes [id number] 50mg Take 1 [facility] 50 mg 0-05 tablet by [facility] tablet 00:00: mouth in [place] the morning Branch and 1 tablet in the evening. furosemide 2021-11 Yes [id number] Take lasix [facility] (LASIX) 40 0-05 02 40 mg BID [facility] of mg tablet 00:00: [address] omeprazole 2021-11 Yes [id number] 40mg Take 1 [facility] 40 mg 0-05 capsule by [facility] of capsule 00:00: mouth in [place] the . Branch potassium 2021-11 Yes [id number] 10meq Take 1 [facility] chloride 10 0-05 02 tablet by [facility] of mEq CR 00:00: mouth [place] tablet 00 every Medical Saturday, Branch Saturday and Saturday. rosuvastati 2021-11 Yes [id number] 20mg Take 1 [facility] n 20 mg 0-05 tablet by [facility] of tablet 00:00: mouth in [place] the . Branch carvediloL 2021-11 Yes [id number] 25mg Take 1 [facility] 25 mg 0-05 02 tablet by [facility] of tablet 00:00: mouth in [place] the morning Branch and 1 tablet in the evening. pioglitazon 2021-11 Yes [id number] 15mg Take 1 [facility] e 15 mg 0-05 tablet by [facility] of tablet 00:00: mouth in [place] the morning. Branch gabapentin 2021-11 Yes [id number] 600mg Take 1 [facility] 600 mg 0-05 tablet by [facility] of tablet 00:00: mouth in [place] the morning Branch and 1 tablet at noon and 1 tablet in the evening. DULoxetine 2021-11 Yes [id number] 60mg Take 1 [facility] 60 mg 0-05 capsule by [facility] of capsule 00:00: mouth in [place] [address] the morning Branch and 1 capsule in the evening. hydrALAZINE 2021-11 Yes [id number] 50mg Take 1 [facility] 50 mg 0-05 tablet by [facility] tablet 00:00: mouth in [place] 00 the Medical morning Branch and 1 tablet in the evening. furosemide 2021-11 Yes [id number] Take lasix [facility] (LASIX) 40 0-05 02 40 mg BID [facility] mg tablet 00:00: [place] 00 Medical Branch omeprazole 2021-11 Yes [id number] 40mg Take 1 [facility] 40 mg 0-05 capsule by [facility] of capsule 00:00: mouth in [place] 00 the morning. Branch potassium 2021-11 Yes [id number] 10meq Take 1 [facility] chloride 10 0-05 02 tablet by [facility] of mEq CR 00:00: mouth [place] tablet 00 every Medical Saturday, Branch Saturday and Saturday. rosuvastati 2021-11 Yes [id number] 20mg Take 1 [facility] n 20 mg 0-05 tablet by [facility] of tablet 00:00: mouth in [place] 00 the morning. Branch carvediloL 2021-11 Yes [id number] 25mg Take 1 [facility] 25 mg 0-05 02 tablet by [facility] of tablet 00:00: mouth in [place] [address] the Medical morning Branch and 1 tablet in the evening. pioglitazon 2021-11 Yes [id number] 15mg Take 1 [facility] e 15 mg 0-05 tablet by [facility] of tablet 00:00: mouth in [place] 00 the morning. Branch gabapentin 2021-11 Yes [id number] 600mg Take 1 [facility] 600 mg 0-05 tablet by [facility] of tablet 00:00: mouth in [place] [address] the Medical morning Branch and 1 tablet at noon and 1 tablet in the evening. DULoxetine 2021-11 Yes [id number] 60mg Take 1 [facility] 60 mg 0-05 capsule by [facility] of capsule 00:00: mouth in [place] [address] the Medical morning Branch and 1 capsule in the evening. hydrALAZINE 2021-11 Yes [id number] 50mg Take 1 [facility] 50 mg 0-05 tablet by [facility] of tablet 00:00: mouth in [place] [address] the Medical morning Branch and 1 tablet in the evening. furosemide 2021-11 Yes [id number] Take lasix [facility] (LASIX) 40 0-05 02 40 mg BID [facility] of mg tablet 00:00: [place] 00 Medical Branch omeprazole 2021-11 Yes [id number] 40mg Take 1 [facility] 40 mg 0-05 capsule by [facility] of capsule 00:00: mouth in [place] the morning. Branch potassium 2021-11 Yes [id number] 10meq Take 1 [facility] chloride 10 0-05 02 tablet by it[facility] of mEq CR 00:00: mouth [place] tablet 00 every Medical Saturday, Branch Saturday and Saturday. rosuvastati 2021-11 Yes [id number] 20mg Take 1 [facility] n 20 mg 0-05 tablet by [facility] of tablet 00:00: mouth in [place] the morning. Branch carvediloL 2021-11 Yes [id number] 25mg Take 1 [facility] 25 mg 0-05 02 tablet by [facility] of tablet 00:00: mouth in [place] the morning Branch and 1 tablet in the evening. pioglitazon 2021-11 Yes [id number] 15mg Take 1 [facility] e 15 mg 0-05 tablet by [facility] of tablet 00:00: mouth in [place] the morning. Branch gabapentin 2021-11 Yes [id number] 600mg Take 1 [facility] 600 mg 0-05 tablet by [facility] of tablet 00:00: mouth in [place] the morning Branch and 1 tablet at noon and 1 tablet in the evening. DULoxetine 2021-11 Yes [id number] 60mg Take 1 [facility] 60 mg 0-05 capsule by [facility] of capsule 00:00: mouth in [place] the morning Branch and 1 capsule in the evening. hydrALAZINE 2021-11 Yes [id number] 50mg Take 1 [facility] 50 mg 0-05 tablet by [facility] of tablet 00:00: mouth in [place] the morning Branch and 1 tablet in the evening. furosemide 2021-11 Yes [id number] Take lasix [facility] (LASIX) 40 0-05 02 40 mg BID [facility] of mg tablet 00:00: [place] 00 Medical [place] omeprazole 2021-11 Yes [id number] 40mg Take 1 [facility] 40 mg 0-05 capsule by [facility] of capsule 00:00: mouth in [place] the morning. Branch potassium 2021-11 Yes [id number] 10meq Take 1 [facility] chloride 10 0-05 02 tablet by it[facility] of mEq CR 00:00: mouth [place] tablet 00 every Medical Saturday, Branch Saturday and Saturday. rosuvastati 2021-11 Yes [id number] 20mg Take 1 [facility] n 20 mg 0-05 tablet by [facility] of tablet 00:00: mouth in [place] the morning. Branch carvediloL 2021-11 Yes [id number] 25mg Take 1 [facility] 25 mg 0-05 02 tablet by [facility] of tablet 00:00: mouth in [place] 00 the Medical morning Branch and 1 tablet in the evening. pioglitazon 2021-11 Yes [id number] 15mg Take 1 [facility] e 15 mg 0-05 tablet by [facility] of tablet 00:00: mouth in [place] 00 the morning. Branch gabapentin 2021-11 Yes [id number] 600mg Take 1 [facility] 600 mg 0-05 tablet by [facility] of tablet 00:00: mouth in [place] the morning Branch and 1 tablet at noon and 1 tablet in the evening. DULoxetine 2021-11 Yes [id number] 60mg Take 1 [facility] 60 mg 0-05 capsule by [facility] of capsule 00:00: mouth in [place] the Medical morning Branch and 1 capsule in the evening. hydrALAZINE 2021-11 Yes [id number] 50mg Take 1 [facility] 50 mg 0-05 tablet by [facility] of tablet 00:00: mouth in [place] the Medical morning Branch and 1 tablet in the evening. furosemide 2021-11 Yes [id number] Take lasix [facility] (LASIX) 40 0-05 02 40 mg BID [facility] mg tablet 00:00: [place] 00 Medical Branch omeprazole 2021-11 Yes [id number] 40mg Take 1 [facility] 40 mg 0-05 capsule by [facility] of capsule 00:00: mouth in [place] the . Branch potassium 2021-11 Yes [id number] 10meq Take 1 [facility] chloride 10 0-05 02 tablet by it[facility] of mEq CR 00:00: mouth [place] tablet 00 every Medical Saturday, Branch Saturday and Saturday. rosuvastati 2021-11 Yes [id number] 20mg Take 1 [facility] n 20 mg 0-05 tablet by [facility] of tablet 00:00: mouth in [place] 00 the morning. Branch carvediloL 2021-11 Yes [id number] 25mg Take 1 [facility] 25 mg 0-05 02 tablet by [facility] of tablet 00:00: mouth in [place] 00 the Medical morning Branch and 1 tablet in the evening. pioglitazon 2021-11 Yes [id number] 15mg Take 1 [facility] e 15 mg 0-05 tablet by [facility] of tablet 00:00: mouth in [place] 00 the morning. Branch gabapentin 2021-11 Yes [id number] 600mg Take 1 [facility] 600 mg 0-05 tablet by [facility] of tablet 00:00: mouth in [place] 00 the Medical morning Branch and 1 tablet at noon and 1 tablet in the evening. DULoxetine 2021-11 Yes [id number] 60mg Take 1 [facility] 60 mg 0-05 capsule by [facility] of capsule 00:00: mouth in [place] 00 the Medical morning Branch and 1 capsule in the evening. hydrALAZINE 2021-11 Yes [id number] 50mg Take 1 [facility] 50 mg 0-05 tablet by it[facility] of tablet 00:00: mouth in [place] the morning Branch and 1 tablet in the evening. furosemide 2021-11 Yes [id number] Take lasix [facility] (LASIX) 40 0-05 02 40 mg BID it[facility] of mg tablet 00:00: [place] 00 [facility] Branch omeprazole 2021-11 Yes [id number] 40mg Take 1 [facility] 40 mg 0-05 capsule by it[facility] of capsule 00:00: mouth in [place] the morning. Branch potassium 2021-11 Yes [id number] 10meq Take 1 [facility] chloride 10 0-05 02 tablet by ity of mEq CR 00:00: mouth [place] tablet 00 every Medical Saturday, Branch Saturday and Saturday. rosuvastati 2021-11 Yes [id number] 20mg Take 1 [facility] n 20 mg 0-05 tablet by it[facility] of tablet 00:00: mouth in [place] the morning. Branch carvediloL 2021-11 Yes [id number] 25mg Take 1 [facility] 25 mg 0-05 02 tablet by it[facility] of tablet 00:00: mouth in [place] the Medical morning Branch and 1 tablet in the evening. pioglitazon 2021-11 Yes [id number] 15mg Take 1 [facility] e 15 mg 0-05 tablet by it[facility] of tablet 00:00: mouth in [place] the morning. Branch gabapentin 2021-11 Yes [id number] 600mg Take 1 [facility] 600 mg 0-05 tablet by it[facility] of tablet 00:00: mouth in [place] 00 the Medical morning Branch and 1 tablet at noon and 1 tablet in the evening. DULoxetine 2021-11 Yes [id number] 60mg Take 1 [facility] 60 mg 0-05 capsule by it[facility] of capsule 00:00: mouth in [place] 00 the Medical morning Branch and 1 capsule in the evening. hydrALAZINE 2021-11 Yes [id number] 50mg Take 1 [facility] 50 mg 0-05 tablet by it[facility] of tablet 00:00: mouth in [place] 00 the Medical morning Branch and 1 tablet in the evening. furosemide 2021-11 Yes [id number] Take lasix [facility] (LASIX) 40 0-05 02 40 mg BID it[facility] of mg tablet 00:00: [place] 00 Medical Branch omeprazole 2021-11 Yes [id number] 40mg Take 1 [facility] 40 mg 0-05 capsule by it[facility] of capsule 00:00: mouth in [place] 00 the morning. [place] potassium 2021-11 Yes [id number] 10meq Take 1 [facility] chloride 10 0-05 02 tablet by ity of mEq CR 00:00: mouth [place] tablet 00 every Medical Saturday, Branch Saturday and Saturday. rosuvastati 2021-11 Yes [id number] 20mg Take 1 [facility] n 20 mg 0-05 tablet by it[facility] of tablet 00:00: mouth in [place] the Medical morning. Branch carvediloL 2021-11 Yes [id number] 25mg Take 1 [facility] 25 mg 0-05 02 tablet by it[facility] of tablet 00:00: mouth in [place] the Medical morning Branch and 1 tablet in the evening. pioglitazon 2021-11 Yes [id number] 15mg Take 1 [facility] e 15 mg 0-05 tablet by it[facility] of tablet 00:00: mouth in [place] the morning. Branch hydrALAZINE 2021-11 Yes [id number] 50mg Take 1 [facility] 50 mg 0-05 tablet by [facility] of tablet 00:00: mouth in [place] the Medical morning Branch and 1 tablet in the evening. omeprazole 2021-11 Yes [id number] 40mg Take 1 [facility] 40 mg 0-05 capsule by it[facility] of capsule 00:00: mouth in [place] 00 the Medical morning. Branch rosuvastati 2021-11 Yes [id number] 20mg Take 1 [facility] n 20 mg 0-05 tablet by it[facility] of tablet 00:00: mouth in [place] 00 the Medical morning. Branch carvediloL 2021-11 Yes [id number] 25mg Take 1 [facility] 25 mg 0-05 02 tablet by ity of tablet 00:00: mouth in [place] the Medical morning Branch and 1 tablet in the evening. hydrALAZINE 2021-11 Yes [id number] 50mg Take 1 [facility] 50 mg 0-05 tablet by it[facility] of tablet 00:00: mouth in [place] the Medical morning Branch and 1 tablet in the evening. omeprazole 2021-11 Yes [id number] 40mg Take 1 [facility] 40 mg 0-05 capsule by ity of capsule 00:00: mouth in [place] the Medical morning. Branch rosuvastati 2021-11 Yes [id number] 20mg Take 1 [facility] n 20 mg 0-05 tablet by it[facility] of tablet 00:00: mouth in [place] the morning. Branch carvediloL 2021-11 Yes [id number] 25mg Take 1 [facility] 25 mg 0-05 02 tablet by ity of tablet 00:00: mouth in [place] the Medical morning Branch and 1 tablet in the evening. hydrALAZINE 2021-11 Yes [id number] 50mg Take 1 [facility] 50 mg 0-05 tablet by it[facility] of tablet 00:00: mouth in [place] the Medical morning Branch and 1 tablet in the evening. omeprazole 2021-11 Yes [id number] 40mg Take 1 [facility] 40 mg 0-05 capsule by ity of capsule 00:00: mouth in [place] the morning. Branch rosuvastati 2021-11 Yes [id number] 20mg Take 1 [facility] n 20 mg 0-05 tablet by ity of tablet 00:00: mouth in [place] the morning. Branch carvediloL 2021-11 Yes [id number] 25mg Take 1 [facility] 25 mg 0-05 02 tablet by ity of tablet 00:00: mouth in [place] the Medical morning Branch and 1 tablet in the evening. hydrALAZINE 2021-11 Yes [id number] 50mg Take 1 [facility] 50 mg 0-05 tablet by ity of tablet 00:00: mouth in [place] the Medical morning Branch and 1 tablet in the evening. omeprazole 2021-11 Yes [id number] 40mg Take 1 [facility] 40 mg 0-05 capsule by ity of capsule 00:00: mouth in [place] the Medical morning. Branch rosuvastati 2021-11 Yes [id number] 20mg Take 1 [facility] n 20 mg 0-05 tablet by ity of tablet 00:00: mouth in [place] the Medical morning. Branch carvediloL 2021-11 Yes [id number] 25mg Take 1 [facility] 25 mg 0-05 02 tablet by ity of tablet 00:00: mouth in [place] 00 the Medical morning Branch and 1 tablet in the evening. hydrALAZINE 2021-11 Yes [id number] 50mg Take 1 [facility] 50 mg 0-05 tablet by it[facility] of tablet 00:00: mouth in [place] 00 the Medical morning Branch and 1 tablet in the evening. omeprazole 2021-11 Yes [id number] 40mg Take 1 [facility] 40 mg 0-05 capsule by it[facility] of capsule 00:00: mouth in [place] the morning. Branch rosuvastati 2021-11 Yes [id number] 20mg Take 1 [facility] n 20 mg 0-05 tablet by ity of tablet 00:00: mouth in [place] the morning. Branch carvediloL 2021-11 Yes [id number] 25mg Take 1 [facility] 25 mg 0-05 02 tablet by ity of tablet 00:00: mouth in [place] the Medical morning Branch and 1 tablet in the evening. hydrALAZINE 2021-11 Yes [id number] 50mg Take 1 [facility] 50 mg 0-05 tablet by ity of tablet 00:00: mouth in [place] the Medical morning Branch and 1 tablet in the evening. omeprazole 2021-11 Yes [id number] 40mg Take 1 [facility] 40 mg 0-05 capsule by it[facility] of capsule 00:00: mouth in [place] the morning. Branch rosuvastati 2021-11 Yes [id number] 20mg Take 1 [facility] n 20 mg 0-05 tablet by ity of tablet 00:00: mouth in [place] 00 the Medical morning. Branch carvediloL 2021-11 Yes [id number] 25mg Take 1 [facility] 25 mg 0-05 02 tablet by ity of tablet 00:00: mouth in [place] 00 the Medical morning Branch and 1 tablet in the evening. hydrALAZINE 2021-11 Yes [id number] 50mg Take 1 [facility] 50 mg 0-05 tablet by ity of tablet 00:00: mouth in [place] 00 the Medical morning Branch and 1 tablet in the evening. omeprazole 2021-11 Yes [id number] 40mg Take 1 [facility] 40 mg 0-05 capsule by ity of capsule 00:00: mouth in [place] the Medical morning. Branch rosuvastati 2021-11 Yes [id number] 20mg Take 1 [facility] n 20 mg 0-05 tablet by ity of tablet 00:00: mouth in [place] the Medical morning. Branch carvediloL 2021-11 Yes [id number] 25mg Take 1 [facility] 25 mg 0-05 02 tablet by ity of tablet 00:00: mouth in [place] 00 the Medical morning Branch and 1 tablet in the evening. hydrALAZINE 2021-11 Yes [id number] 50mg Take 1 [facility] 50 mg 0-05 tablet by it[facility] of tablet 00:00: mouth in [place] the Medical morning Branch and 1 tablet in the evening. omeprazole 2021-11 Yes [id number] 40mg Take 1 [facility] 40 mg 0-05 capsule by ity of capsule 00:00: mouth in [place] the Medical morning. Branch rosuvastati 2021-11 Yes [id number] 20mg Take 1 [facility] n 20 mg 0-05 tablet by ity of tablet 00:00: mouth in [place] the morning. Branch carvediloL 2021-11 Yes [id number] 25mg Take 1 [facility] 25 mg 0-05 02 tablet by ity of tablet 00:00: mouth in [place] the Medical morning Branch and 1 tablet in the evening. hydrALAZINE 2021-11 Yes [id number] 50mg Take 1 [facility] 50 mg 0-05 tablet by ity of tablet 00:00: mouth in [place] the Medical morning Branch and 1 tablet in the evening. omeprazole 2021-11 Yes [id number] 40mg Take 1 [facility] 40 mg 0-05 capsule by it[facility] of capsule 00:00: mouth in [place] the Medical morning. Branch rosuvastati 2021-11 Yes [id number] 20mg Take 1 [facility] n 20 mg 0-05 tablet by ity of tablet 00:00: mouth in [place] the Medical morning. Branch carvediloL 2021-11 Yes [id number] 25mg Take 1 [facility] 25 mg 0-05 02 tablet by ity of tablet 00:00: mouth in [place] the Medical morning Branch and 1 tablet in the evening. hydrALAZINE 2021-11 Yes [id number] 50mg Take 1 [facility] 50 mg 0-05 tablet by it[facility] of tablet 00:00: mouth in [place] 00 the Medical morning Branch and 1 tablet in the evening. omeprazole 2021-11 Yes [id number] 40mg Take 1 [facility] 40 mg 0-05 capsule by ity of capsule 00:00: mouth in [place] the Medical morning. Branch rosuvastati 2021-11 Yes [id number] 20mg Take 1 [facility] n 20 mg 0-05 tablet by ity of tablet 00:00: mouth in [place] the Medical morning. Branch carvediloL 2021-11 Yes [id number] 25mg Take 1 [facility] 25 mg 0-05 02 tablet by ity of tablet 00:00: mouth in [place] 00 the Medical morning Branch and 1 tablet in the evening. hydrALAZINE 2021-11 Yes [id number] 50mg Take 1 [facility] 50 mg 0-05 tablet by ity of tablet 00:00: mouth in [place] the Medical morning Branch and 1 tablet in the evening. omeprazole 2021-11 Yes [id number] 40mg Take 1 [facility] 40 mg 0-05 capsule by ity of capsule 00:00: mouth in [place] the Medical morning. Branch rosuvastati 2021-11 Yes [id number] 20mg Take 1 [facility] n 20 mg 0-05 tablet by ity of tablet 00:00: mouth in [place] the Medical morning. Branch carvediloL 2021-11 Yes [id number] 25mg Take 1 [facility] 25 mg 0-05 02 tablet by ity of tablet 00:00: mouth in [place] the Medical morning Branch and 1 tablet in the evening. hydrALAZINE 2021-11 Yes [id number] 50mg Take 1 [facility] 50 mg 0-05 tablet by ity of tablet 00:00: mouth in [place] the Medical morning Branch and 1 tablet in the evening. omeprazole 2021-11 Yes [id number] 40mg Take 1 [facility] 40 mg 0-05 capsule by ity of capsule 00:00: mouth in [place] the Medical morning. Branch rosuvastati 2021-11 Yes [id number] 20mg Take 1 [facility] n 20 mg 0-05 tablet by ity of tablet 00:00: mouth in [place] the Medical morning. Branch carvediloL 2021-11 Yes [id number] 25mg Take 1 [facility] 25 mg 0-05 02 tablet by ity of tablet 00:00: mouth in [place] the Medical morning Branch and 1 tablet in the evening. hydrALAZINE 2021-11 Yes [id number] 50mg Take 1 [facility] 50 mg 0-05 tablet by ity of tablet 00:00: mouth in [place] the Medical morning Branch and 1 tablet in the evening. omeprazole 2021-11 Yes [id number] 40mg Take 1 [facility] 40 mg 0-05 capsule by ity of capsule 00:00: mouth in [place] the morning. Branch rosuvastati 2021-11 Yes [id number] 20mg Take 1 [facility] n 20 mg 0-05 tablet by ity of tablet 00:00: mouth in [place] the morning. Branch carvediloL 2021-11 Yes [id number] 25mg Take 1 [facility] 25 mg 0-05 02 tablet by ity of tablet 00:00: mouth in [place] [address] the Medical morning Branch and 1 tablet in the evening. hydrALAZINE 2021-11 Yes [id number] 50mg Take 1 [facility] 50 mg 0-05 tablet by ity of tablet 00:00: mouth in [place] [address] the Medical morning Branch and 1 tablet in the evening. omeprazole 2021-11 Yes [id number] 40mg Take 1 [facility] 40 mg 0-05 capsule by ity of capsule 00:00: mouth in [place] the morning. Branch rosuvastati 2021-11 Yes [id number] 20mg Take 1 [facility] n 20 mg 0-05 tablet by ity of tablet 00:00: mouth in [place] the morning. Branch carvediloL 2021-11 Yes [id number] 25mg Take 1 [facility] 25 mg 0-05 02 tablet by ity of tablet 00:00: mouth in [place] the Medical morning Branch and 1 tablet in the evening. hydrALAZINE 2021-11 Yes [id number] 50mg Take 1 [facility] 50 mg 0-05 tablet by ity of tablet 00:00: mouth in [place] [address] the morning Branch and 1 tablet in the evening. omeprazole 2021-11 Yes [id number] 40mg Take 1 [facility] 40 mg 0-05 capsule by ity of capsule 00:00: mouth in [place] the morning. Branch rosuvastati 2021-11 Yes [id number] 20mg Take 1 [facility] n 20 mg 0-05 tablet by ity of tablet 00:00: mouth in [place] the Medical morning. Branch carvediloL 2021-11 Yes [id number] 25mg Take 1 [facility] 25 mg 0-05 02 tablet by ity of tablet 00:00: mouth in [place] the Medical morning Branch and 1 tablet in the evening. hydrALAZINE 2021-11 Yes [id number] 50mg Take 1 [facility] 50 mg 0-05 tablet by ity of tablet 00:00: mouth in [place] the Medical morning Branch and 1 tablet in the evening. omeprazole 2021-11 Yes [id number] 40mg Take 1 [facility] 40 mg 0-05 capsule by ity of capsule 00:00: mouth in [place] the morning. Branch rosuvastati 2021-11 Yes [id number] 20mg Take 1 [facility] n 20 mg 0-05 tablet by ity of tablet 00:00: mouth in [place] the morning. Branch carvediloL 2021-11 Yes [id number] 25mg Take 1 [facility] 25 mg 0-05 02 tablet by ity of tablet 00:00: mouth in [place] the Medical morning Branch and 1 tablet in the evening. hydrALAZINE 2021-11 Yes [id number] 50mg Take 1 [facility] 50 mg 0-05 tablet by ity of tablet 00:00: mouth in [place] the morning Branch and 1 tablet in the evening. omeprazole 2021-11 Yes [id number] 40mg Take 1 [facility] 40 mg 0-05 capsule by ity of capsule 00:00: mouth in [place] the morning. Branch rosuvastati 2021-11 Yes [id number] 20mg Take 1 [facility] n 20 mg 0-05 tablet by ity of tablet 00:00: mouth in [place] the morning. Branch carvediloL 2021-11 Yes [id number] 25mg Take 1 [facility] 25 mg 0-05 02 tablet by ity of tablet 00:00: mouth in [place] the Medical morning Branch and 1 tablet in the evening. hydrALAZINE 2021-11 Yes [id number] 50mg Take 1 [facility] 50 mg 0-05 tablet by ity of tablet 00:00: mouth in [place] [address] the Medical morning Branch and 1 tablet in the evening. omeprazole 2021-11 Yes [id number] 40mg Take 1 [facility] 40 mg 0-05 capsule by ity of capsule 00:00: mouth in [place] the Medical morning. Branch rosuvastati 2021-11 Yes [id number] 20mg Take 1 [facility] n 20 mg 0-05 tablet by ity of tablet 00:00: mouth in [place] the morning. Branch carvediloL 2021-11 Yes [id number] 25mg Take 1 [facility] 25 mg 0-05 02 tablet by ity of tablet 00:00: mouth in [place] 00 the Medical morning Branch and 1 tablet in the evening. hydrALAZINE 2021-11 Yes [id number] 50mg Take 1 [facility] 50 mg 0-05 tablet by [facility] tablet 00:00: mouth in [place] the Medical morning Branch and 1 tablet in the evening. omeprazole 2021-11 Yes [id number] 40mg Take 1 [facility] 40 mg 0-05 capsule by [facility] capsule 00:00: mouth in [place] the morning. Branch rosuvastati 2021-11 Yes [id number] 20mg Take 1 [facility] n 20 mg 0-05 tablet by [facility] of tablet 00:00: mouth in [place] the morning. Branch carvediloL 2021-11 Yes [id number] 25mg Take 1 [facility] 25 mg 0-05 02 tablet by [facility] of tablet 00:00: mouth in [place] the Medical morning Branch and 1 tablet in the evening. hydrALAZINE 2021-11 Yes [id number] 50mg Take 1 [facility] 50 mg 0-05 tablet by [facility] of tablet 00:00: mouth in [place] the Medical morning Branch and 1 tablet in the evening. omeprazole 2021-11 Yes [id number] 40mg Take 1 [facility] 40 mg 0-05 capsule by [facility] of capsule 00:00: mouth in [place] the Medical morning. Branch rosuvastati 2021-11 Yes [id number] 20mg Take 1 [facility] n 20 mg 0-05 tablet by [facility] of tablet 00:00: mouth in [place] the Medical morning. Branch carvediloL 2021-11 Yes [id number] 25mg Take 1 [facility] 25 mg 0-05 02 tablet by [facility] of tablet 00:00: mouth in [place] the Medical morning Branch and 1 tablet in the evening. hydrALAZINE 2021-11 Yes [id number] 50mg Take 1 [facility] 50 mg 0-05 tablet by [facility] of tablet 00:00: mouth in [place] 00 the Medical morning Branch and 1 tablet in the evening. omeprazole 2021-11 Yes [id number] 40mg Take 1 [facility] 40 mg 0-05 capsule by [facility] of capsule 00:00: mouth in [place] the morning. Branch rosuvastati 2021-11 Yes [id number] 20mg Take 1 [facility] n 20 mg 0-05 tablet by [facility] of tablet 00:00: mouth in [place] the morning. Branch carvediloL 2021-11 Yes [id number] 25mg Take 1 [facility] 25 mg 0-05 02 tablet by [facility] of tablet 00:00: mouth in [place] the Medical morning Branch and 1 tablet in the evening. hydrALAZINE 2021-11 Yes [id number] 50mg Take 1 [facility] 50 mg 0-05 tablet by [facility] of tablet 00:00: mouth in [place] the Medical morning Branch and 1 tablet in the evening. omeprazole 2021-11 Yes [id number] 40mg Take 1 [facility] 40 mg 0-05 capsule by [facility] of capsule 00:00: mouth in [place] the morning. Branch rosuvastati 2021-11 Yes [id number] 20mg Take 1 [facility] n 20 mg 0-05 tablet by [facility] of tablet 00:00: mouth in [place] the morning. Branch carvediloL 2021-11 Yes [id number] 25mg Take 1 [facility] 25 mg 0-05 02 tablet by [facility] of tablet 00:00: mouth in [place] the Medical morning Branch and 1 tablet in the evening. hydrALAZINE 2021-11 Yes [id number] 50mg Take 1 [facility] 50 mg 0-05 tablet by [facility] of tablet 00:00: mouth in [place] the Medical morning Branch and 1 tablet in the evening. omeprazole 2021-11 Yes [id number] 40mg Take 1 [facility] 40 mg 0-05 capsule by [facility] of capsule 00:00: mouth in [place] the morning. Branch rosuvastati 2021-11 Yes [id number] 20mg Take 1 [facility] n 20 mg 0-05 tablet by [facility] of tablet 00:00: mouth in [place] the Medical morning. Branch carvediloL 2021-11 Yes [id number] 25mg Take 1 [facility] 25 mg 0-05 02 tablet by [facility] of tablet 00:00: mouth in [place] the Medical morning Branch and 1 tablet in the evening. hydrALAZINE 2021-11 Yes [id number] 50mg Take 1 [facility] 50 mg 0-05 tablet by [facility] of tablet 00:00: mouth in [place] the Medical morning Branch and 1 tablet in the evening. omeprazole 2021-11 Yes [id number] 40mg Take 1 [facility] 40 mg 0-05 capsule by [facility] of capsule 00:00: mouth in [place] the Medical morning. Branch rosuvastati 2021-11 Yes [id number] 20mg Take 1 [facility] n 20 mg 0-05 tablet by [facility] of tablet 00:00: mouth in [place] the Medical morning. Branch carvediloL 2021-11 Yes [id number] 25mg Take 1 [facility] 25 mg 0-05 02 tablet by [facility] of tablet 00:00: mouth in [place] the Medical morning Branch and 1 tablet in the evening. hydrALAZINE 2021-11 Yes [id number] 50mg Take 1 [facility] 50 mg 0-05 tablet by [facility] of tablet 00:00: mouth in [place] the Medical morning Branch and 1 tablet in the evening. omeprazole 2021-11 Yes [id number] 40mg Take 1 [facility] 40 mg 0-05 capsule by [facility] of capsule 00:00: mouth in [place] the morning. Branch rosuvastati 2021-11 Yes [id number] 20mg Take 1 [facility] n 20 mg 0-05 tablet by [facility] of tablet 00:00: mouth in [place] the morning. Branch carvediloL 2021-11 Yes [id number] 25mg Take 1 [facility] 25 mg 0-05 02 tablet by [facility] of tablet 00:00: mouth in [place] the Medical morning Branch and 1 tablet in the evening. hydrALAZINE 2021-11 Yes [id number] 50mg Take 1 [facility] 50 mg 0-05 tablet by [facility] of tablet 00:00: mouth in [place] the Medical morning Branch and 1 tablet in the evening. omeprazole 2021-11 Yes [id number] 40mg Take 1 [facility] 40 mg 0-05 capsule by [facility] of capsule 00:00: mouth in [place] the Medical morning. Branch rosuvastati 2021-11 Yes [id number] 20mg Take 1 [facility] n 20 mg 0-05 tablet by [facility] of tablet 00:00: mouth in [place] the Medical morning. Branch carvediloL 2021-11 Yes [id number] 25mg Take 1 [facility] 25 mg 0-05 02 tablet by [facility] of tablet 00:00: mouth in [place] the Medical morning Branch and 1 tablet in the evening. hydrALAZINE 2021-11 Yes [id number] 50mg Take 1 [facility] 50 mg 0-05 tablet by [facility] of tablet 00:00: mouth in [place] the Medical morning Branch and 1 tablet in the evening. omeprazole 2021-11 Yes [id number] 40mg Take 1 [facility] 40 mg 0-05 capsule by [facility] of capsule 00:00: mouth in [place] the Medical morning. Branch rosuvastati 2021-11 Yes [id number] 20mg Take 1 [facility] n 20 mg 0-05 tablet by [facility] of tablet 00:00: mouth in [place] the morning. Branch carvediloL 2021-11 Yes [id number] 25mg Take 1 [facility] 25 mg 0-05 02 tablet by [facility] of tablet 00:00: mouth in [place] the Medical morning Branch and 1 tablet in the evening. hydrALAZINE 2021-11 Yes [id number] 50mg Take 1 [facility] 50 mg 0-05 tablet by [facility] of tablet 00:00: mouth in [place] the Medical morning Branch and 1 tablet in the evening. omeprazole 2021-11 Yes [id number] 40mg Take 1 [facility] 40 mg 0-05 capsule by [facility] of capsule 00:00: mouth in [place] the morning. Branch rosuvastati 2021-11 Yes [id number] 20mg Take 1 [facility] n 20 mg 0-05 tablet by [facility] of tablet 00:00: mouth in [place] the morning. Branch carvediloL 2021-11 Yes [id number] 25mg Take 1 [facility] 25 mg 0-05 02 tablet by [facility] of tablet 00:00: mouth in [place] the Medical morning Branch and 1 tablet in the evening. hydrALAZINE 2021-11 Yes [id number] 50mg Take 1 [facility] 50 mg 0-05 tablet by [facility] of tablet 00:00: mouth in [place] the Medical morning Branch and 1 tablet in the evening. omeprazole 2021-11 Yes [id number] 40mg Take 1 [facility] 40 mg 0-05 capsule by [facility] of capsule 00:00: mouth in [place] the Medical morning. Branch rosuvastati 2021-11 Yes [id number] 20mg Take 1 [facility] n 20 mg 0-05 tablet by [facility] of tablet 00:00: mouth in [place] the Medical morning. Branch carvediloL 2021-11 Yes [id number] 25mg Take 1 [facility] 25 mg 0-05 02 tablet by [facility] of tablet 00:00: mouth in [place] 00 the Medical morning Branch and 1 tablet in the evening. hydrALAZINE 2021-11 Yes [id number] 50mg Take 1 [facility] 50 mg 0-05 tablet by [facility] tablet 00:00: mouth in [place] 00 the Medical morning Branch and 1 tablet in the evening. omeprazole 2021-11 Yes [id number] 40mg Take 1 [facility] 40 mg 0-05 capsule by [facility] capsule 00:00: mouth in [place] the morning. Branch rosuvastati 2021-11 Yes [id number] 20mg Take 1 [facility] n 20 mg 0-05 tablet by [facility] of tablet 00:00: mouth in [place] the morning. Branch carvediloL 2021-11 Yes [id number] 25mg Take 1 [facility] 25 mg 0-05 02 tablet by [facility] of tablet 00:00: mouth in [place] the Medical morning Branch and 1 tablet in the evening. hydrALAZINE 2021-11 Yes [id number] 50mg Take 1 [facility] 50 mg 0-05 tablet by [facility] of tablet 00:00: mouth in [place] the Medical morning Branch and 1 tablet in the evening. omeprazole 2021-11 Yes [id number] 40mg Take 1 [facility] 40 mg 0-05 capsule by [facility] of capsule 00:00: mouth in [place] the morning. Branch rosuvastati 2021-11 Yes [id number] 20mg Take 1 [facility] n 20 mg 0-05 tablet by [facility] of tablet 00:00: mouth in [place] 00 the Medical morning. Branch carvediloL 2021-11 Yes [id number] 25mg Take 1 [facility] 25 mg 0-05 02 tablet by [facility] of tablet 00:00: mouth in [place] 00 the Medical morning Branch and 1 tablet in the evening. hydrALAZINE 2021-11 Yes [id number] 50mg Take 1 [facility] 50 mg 0-05 tablet by [facility] of tablet 00:00: mouth in [place] 00 the Medical morning Branch and 1 tablet in the evening. omeprazole 2021-11 Yes [id number] 40mg Take 1 [facility] 40 mg 0-05 capsule by [facility] capsule 00:00: mouth in [place] the Medical morning. Branch rosuvastati 2021-11 Yes [id number] 20mg Take 1 [facility] n 20 mg 0-05 tablet by [facility] of tablet 00:00: mouth in [place] the Medical morning. Branch carvediloL 2021-11 Yes [id number] 25mg Take 1 [facility] 25 mg 0-05 02 tablet by [facility] tablet 00:00: mouth in [place] 00 the Medical morning Branch and 1 tablet in the evening. hydrALAZINE 2021-11 Yes [id number] 50mg Take 1 [facility] 50 mg 0-05 tablet by [facility] of tablet 00:00: mouth in [place] the Medical morning Branch and 1 tablet in the evening. omeprazole 2021-11 Yes [id number] 40mg Take 1 [facility] 40 mg 0-05 capsule by [facility] of capsule 00:00: mouth in [place] the Medical morning. Branch rosuvastati 2021-11 Yes [id number] 20mg Take 1 [facility] n 20 mg 0-05 tablet by [facility] of tablet 00:00: mouth in [place] the morning. Branch carvediloL 2021-11 Yes [id number] 25mg Take 1 [facility] 25 mg 0-05 02 tablet by [facility] of tablet 00:00: mouth in [place] the Medical morning Branch and 1 tablet in the evening. hydrALAZINE 2021-11 Yes [id number] 50mg Take 1 [facility] 50 mg 0-05 tablet by [facility] of tablet 00:00: mouth in [place] the Medical morning Branch and 1 tablet in the evening. omeprazole 2021-11 Yes [id number] 40mg Take 1 [facility] 40 mg 0-05 capsule by [facility] of capsule 00:00: mouth in [place] the Medical morning. Branch rosuvastati 2021-11 Yes [id number] 20mg Take 1 [facility] n 20 mg 0-05 tablet by [facility] of tablet 00:00: mouth in [place] the Medical morning. Branch carvediloL 2021-11 Yes [id number] 25mg Take 1 [facility] 25 mg 0-05 02 tablet by [facility] of tablet 00:00: mouth in [place] the Medical morning Branch and 1 tablet in the evening. omeprazole 2021-11 Yes [id number] 40mg Take 1 [facility] 40 mg 0-05 capsule by [facility] of capsule 00:00: mouth in [place] 00 the Medical morning. Branch rosuvastati 2021-11 Yes [id number] 20mg Take 1 [facility] n 20 mg 0-05 tablet by [facility] of tablet 00:00: mouth in [place] 00 the Medical morning. Branch omeprazole 2021-11 Yes [id number] 40mg Take 1 [facility] 40 mg 0-05 capsule by [facility] of capsule 00:00: mouth in [place] 00 the Medical morning. Branch rosuvastati 2021-11 Yes [id number] 20mg Take 1 [facility] n 20 mg 0-05 tablet by [facility] of tablet 00:00: mouth in [place] 00 the Medical morning. Branch omeprazole 2021-11 Yes [id number] 40mg Take 1 [facility] 40 mg 0-05 capsule by [facility] of capsule 00:00: mouth in [place] 00 the Medical morning. Branch rosuvastati 2021-11 Yes [id number] 20mg Take 1 [facility] n 20 mg 0-05 tablet by [facility] of tablet 00:00: mouth in [place] 00 the Medical morning. Branch omeprazole 2021-11 Yes [id number] 40mg Take 1 [facility] 40 mg 0-05 capsule by [facility] of capsule 00:00: mouth in [place] 00 the Medical morning. Branch rosuvastati 2021-11 Yes [id number] 20mg Take 1 [facility] n 20 mg 0-05 tablet by [facility] of tablet 00:00: mouth in [place] 00 the Medical morning. Branch omeprazole 2021-11- No [id number] 40mg Take 1 [facility] 40 mg 0-05 08-08 capsule by [facility] of capsule 00:00: 00:00 mouth in [place] 00 :00 the Medical morning. Branch rosuvastati 2021-11- No [id number] 20mg Take 1 [facility] n 20 mg 0-05 08-08 tablet by [facility] of tablet 00:00: 00:00 mouth in [place] 00 :00 the Medical morning. Branch omeprazole 2021-11- No [id number] 40mg Take 1 [facility] 40 mg 0-05 08-08 capsule by [facility] of capsule 00:00: 00:00 mouth in [place] 00 :00 the Medical morning. Branch rosuvastati 2021-11- No [id number] 20mg Take 1 [facility] n 20 mg 0-05 08-08 tablet by [facility] of tablet 00:00: 00:00 mouth in [place] 00 :00 the Medical morning. Branch omeprazole 2021-11- No [id number] 40mg Take 1 [facility] 40 mg 0-05 08-08 capsule by [facility] of capsule 00:00: 00:00 mouth in [place] 00 :00 the Medical morning. Branch rosuvastati 2021-113- No [id number] 20mg Take 1 [facility] n 20 mg 0-05 08-08 tablet by [facility] of tablet 00:00: 00:00 mouth in [place] 00 :00 the Medical morning. Branch hydrALAZINE 2021-11- No [id number] 50mg Take 1 [facility] 50 mg 0-05 07-28 tablet by [facility] of tablet 00:00: 00:00 mouth in [place] 00 :00 the Medical morning Branch and 1 tablet in the evening. carvediloL 2021-11- No [id number] 25mg Take 1 [facility] 25 mg 0-05 07-28 02 tablet by [facility] of tablet 00:00: 00:00 mouth in [place] 00 :00 the Medical morning Branch and 1 tablet in the evening. hydrALAZINE 2021-11- No [id number] 50mg Take 1 [facility] 50 mg 0-05 07-28 tablet by [facility] of tablet 00:00: 00:00 mouth in [place] 00 :00 the Medical morning Branch and 1 tablet in the evening. carvediloL 2021-11- No [id number] 25mg Take 1 [facility] 25 mg 0-05 07-28 02 tablet by [facility] of tablet 00:00: 00:00 mouth in [place] 00 :00 the Medical morning Branch and 1 tablet in the evening. hydrALAZINE 2021-11- No [id number] 50mg Take 1 [facility] 50 mg 0-05 07-28 tablet by [facility] of tablet 00:00: 00:00 mouth in [place] 00 :00 the Medical morning Branch and 1 tablet in the evening. carvediloL 2021-11- No [id number] 25mg Take 1 [facility] 25 mg 0-05 07-28 02 tablet by [facility] of tablet 00:00: 00:00 mouth in [place] 00 :00 the Medical morning Branch and 1 tablet in the evening. hydrALAZINE 2021-11- No [id number] 50mg Take 1 [facility] 50 mg 0-05 07-28 tablet by [facility] of tablet 00:00: 00:00 mouth in [place] 00 :00 the Medical morning Branch and 1 tablet in the evening. carvediloL 2021-11- No [id number] 25mg Take 1 [facility] 25 mg 0-05 07-28 02 tablet by [facility] of tablet 00:00: 00:00 mouth in [place] 00 :00 the Medical morning Branch and 1 tablet in the evening. hydrALAZINE 2021-11- No [id number] 50mg Take 1 [facility] 50 mg 0-05 07-28 tablet by [facility] of tablet 00:00: 00:00 mouth in [place] 00 :00 the Medical morning Branch and 1 tablet in the evening. carvediloL 2021-11- No [id number] 25mg Take 1 [facility] 25 mg 0-05 07-28 02 tablet by [facility] of tablet 00:00: 00:00 mouth in [place] 00 :00 the Medical morning Branch and 1 tablet in the evening. gabapentin 2021-11- No [id number] 600mg Take 1 [facility] 600 mg 0-05 05-09 tablet by [facility] of tablet 00:00: 00:00 mouth in [place] 00 :00 the [facility] morning Branch and 1 tablet at noon and 1 tablet in the evening. DULoxetine 2021-11- No [id number] 60mg Take 1 [facility] 60 mg 0-05 05-09 capsule by [facility] of capsule 00:00: 00:00 mouth in [place] 00 :00 the [facility] morning Branch and 1 capsule in the evening. furosemide 2021-11- No [id number] Take lasix [facility] (LASIX) 40 0-05 05-09 02 40 mg BID ity of mg tablet 00:00: 00:00 [place] 00 :00 Medical Branch potassium 2021-11- No [id number] 10meq Take 1 [facility] chloride 10 0-05 05-09 02 tablet by it y of mEq CR 00:00: 00:00 mouth [place] tablet 00 :00 every Medical Saturday, Branch Saturday and Saturday. pioglitazon 2021-11- No [id number] 15mg Take 1 [facility] e 15 mg 0-05 05-09 tablet by it[facility] of tablet 00:00: 00:00 mouth in [place] 00 :00 the Medical morning. Branch gabapentin 2021-11- No [id number] 600mg Take 1 [facility] 600 mg 0-05 05-09 tablet by it[facility] of tablet 00:00: 00:00 mouth in [place] 00 :00 the Medical morning Branch and 1 tablet at noon and 1 tablet in the evening. DULoxetine 2021-11- No [id number] 60mg Take 1 [facility] 60 mg 0-05 05-09 capsule by [facility] of capsule 00:00: 00:00 mouth in [place] 00 :00 the Medical morning Branch and 1 capsule in the evening. furosemide 2021-11- No [id number] Take lasix [facility] (LASIX) 40 0-05 05-09 02 40 mg BID ity of mg tablet 00:00: 00:00 [place] 00 :00 Medical Branch potassium 2021-2022- No [id number] 10meq Take 1 [facility] chloride 10 0-05 05-09 02 tablet by it y of mEq CR 00:00: 00:00 mouth [place] tablet 00 :00 every Medical Saturday, Branch Saturday and Saturday. pioglitazon 2021-11- No [id number] 15mg Take 1 [facility] e 15 mg 0-05 05-09 tablet by ity of tablet 00:00: 00:00 mouth in [place] 00 :00 the Medical morning. Branch gabapentin 2021-11- No [id number] 600mg Take 1 [facility] 600 mg 0-05 05-09 tablet by it[facility] of tablet 00:00: 00:00 mouth in [place] 00 :00 the Medical morning Branch and 1 tablet at noon and 1 tablet in the evening. DULoxetine 2021-11- No [id number] 60mg Take 1 [facility] 60 mg 0-05 05-09 capsule by it[facility] of capsule 00:00: 00:00 mouth in [place] 00 :00 the Medical morning Branch and 1 capsule in the evening. furosemide 2021-11- No [id number] Take lasix [facility] (LASIX) 40 0-05 05-09 02 40 mg BID ity of mg tablet 00:00: 00:00 [place] 00 :00 Medical Branch potassium 2021-2022- No [id number] 10meq Take 1 [facility] chloride 10 0-05 05-09 02 tablet by it y of mEq CR 00:00: 00:00 mouth [place] tablet 00 :00 every Medical Saturday, Branch Saturday and Saturday. pioglitazon 2021-11- No [id number] 15mg Take 1 [facility] e 15 mg 0-05 05-09 tablet by ity of tablet 00:00: 00:00 mouth in [place] 00 :00 the Medical morning. Branch gabapentin 2021-11- No [id number] 600mg Take 1 [facility] 600 mg 0-05 05-09 tablet by ity of tablet 00:00: 00:00 mouth in [place] 00 :00 the Medical morning Branch and 1 tablet at noon and 1 tablet in the evening. DULoxetine 2021-11- No [id number] 60mg Take 1 [facility] 60 mg 0-05 05-09 capsule by ity of capsule 00:00: 00:00 mouth in [place] 00 :00 the Medical morning Branch and 1 capsule in the evening. furosemide 2021-11- No [id number] Take lasix [facility] (LASIX) 40 0-05 05-09 02 40 mg BID ity of mg tablet 00:00: 00:00 [place] 00 :00 Medical Branch potassium 2021-11- No [id number] 10meq Take 1 [facility] chloride 10 0-05 05-09 02 tablet by it y of mEq CR 00:00: 00:00 mouth [place] tablet 00 :00 every Medical Saturday, Branch Saturday and Saturday. pioglitazon 2021-11- No [id number] 15mg Take 1 [facility] e 15 mg 0-05 05-09 tablet by ity of tablet 00:00: 00:00 mouth in [place] 00 :00 the Medical morning. Branch gabapentin 2021-11- No [id number] 600mg Take 1 [facility] 600 mg 0-05 05-09 tablet by ity of tablet 00:00: 00:00 mouth in [place] 00 :00 the Medical morning Branch and 1 tablet at noon and 1 tablet in the evening. DULoxetine 2021-11- No [id number] 60mg Take 1 [facility] 60 mg 0-05 05-09 capsule by ity of capsule 00:00: 00:00 mouth in [place] 00 :00 the Medical morning Branch and 1 capsule in the evening. furosemide 2021-11- No [id number] Take lasix [facility] (LASIX) 40 0-05 05-09 02 40 mg BID ity of mg tablet 00:00: 00:00 [place] 00 :00 Medical Branch potassium 2021-2022- No [id number] 10meq Take 1 [facility] chloride 10 0-05 05-09 02 tablet by it y of mEq CR 00:00: 00:00 mouth [place] tablet 00 :00 every Medical Saturday, Branch Saturday and Saturday. pioglitazon 2021-11- No [id number] 15mg Take 1 [facility] e 15 mg 0-05 05-09 tablet by ity of tablet 00:00: 00:00 mouth in [place] 00 :00 the Medical morning. Branch gabapentin 2021-11- No [id number] 600mg Take 1 [facility] 600 mg 0-05 05-09 tablet by ity of tablet 00:00: 00:00 mouth in [place] 00 :00 the Medical morning Branch and 1 tablet at noon and 1 tablet in the evening. DULoxetine 2021-11- No [id number] 60mg Take 1 [facility] 60 mg 0-05 05-09 capsule by ity of capsule 00:00: 00:00 mouth in [place] 00 :00 the Medical morning Branch and 1 capsule in the evening. furosemide 2021-11- No [id number] Take lasix [facility] (LASIX) 40 0-05 05-09 02 40 mg BID ity of mg tablet 00:00: 00:00 [place] 00 :00 Medical Branch potassium 2021-11- No [id number] 10meq Take 1 [facility] chloride 10 0-05 05-09 02 tablet by it y of mEq CR 00:00: 00:00 mouth [place] tablet 00 :00 every Medical Saturday, Branch Saturday and Saturday. pioglitazon 2021-11- No [id number] 15mg Take 1 [facility] e 15 mg 0-05 05-09 tablet by ity of tablet 00:00: 00:00 mouth in [place] 00 :00 the Medical morning. Branch gabapentin 2021-11- No [id number] 600mg Take 1 [facility] 600 mg 0-05 05-09 tablet by ity of tablet 00:00: 00:00 mouth in [place] 00 :00 the Medical morning Branch and 1 tablet at noon and 1 tablet in the evening. DULoxetine 2021-11- No [id number] 60mg Take 1 [facility] 60 mg 0-05 05-09 capsule by ity of capsule 00:00: 00:00 mouth in [place] 00 :00 the Medical morning Branch and 1 capsule in the evening. furosemide 2021-11- No [id number] Take lasix [facility] (LASIX) 40 0-05 - 02 40 mg BID ity of mg tablet 00:00: 00:00 [place] 00 :00 Medical Branch potassium 2021-11- No [id number] 10meq Take 1 [facility] chloride 10 0-03 08- 02 tablet by it y of mEq CR 00:00: 00:00 mouth [place] tablet 00 :00 every Medical Saturday, Branch Saturday and Saturday. pioglitazon 2021-11- No [id number] 15mg Take 1 [facility] e 15 mg 0-05 -09 tablet by ity of tablet 00:00: 00:00 mouth in [place] 00 :00 the Medical morning. Branch metFORMIN 2021-11- No [id number] 500mg Take 1 [facility] 500 mg 0-05 -24 tablet by ity of tablet 00:00: 00:00 mouth in [place] 00 :00 the Medical morning Branch and 1 tablet in the evening. Take with meals. glimepiride 2021-11- No [id number] 2mg Take 1 [facility] 2 mg tablet 0-05 -24 tablet by it y of 00:00: 00:00 mouth in [place] 00 :00 the Medical morning Branch and 1 tablet in the evening. GABAPENTIN Yes [id number] TAKE 1 [facility] 600 mg 9-05 TABLET BY ity of tablet 00:00: MOUTH [address] TIMES [place] DAILY ALLOPURINOL Yes [id number] 100mg TAKE 1 [facility] 100 mg 9-05 TABLET BY ity of tablet 00:00: MOUTH [place] 00 DAILY Medical Branch GABAPENTIN 2021- Yes TAKE 1 [facility] 600 mg 9-05 TABLET BY ity of tablet 00:00: MOUTH [place] [address] THREE [facility] TIMES [place] DAILY ALLOPURINOL Yes [id number] 100mg TAKE 1 [facility] 100 mg 9-05 TABLET BY ity of tablet 00:00: MOUTH [place] 00 DAILY Medical Branch ALLOPURINOL 2-0 Yes [id number] 100mg TAKE 1 [facility] 100 mg 9-05 TABLET BY ity of tablet 00:00: [facility] DAILY Medical Branch ALLOPURINOL 2-0 Yes [id number] 100mg TAKE 1 [facility] 100 mg 9-05 TABLET BY ity of tablet 00:00: DAILY Medical Branch ALLOPURINOL 2021-0 Yes [id number] 100mg TAKE 1 [facility] 100 mg 9-05 TABLET BY ity of tablet 00:00: DAILY Medical Branch ALLOPURINOL 2021-0 Yes [id number] 100mg TAKE 1 [facility] 100 mg 9-05 TABLET BY ity of tablet 00:00: DAILY Medical Branch ALLOPURINOL 2021-0 Yes [id number] 100mg TAKE 1 [facility] 100 mg 9-05 TABLET BY ity of tablet 00:00: DAILY Medical Branch ALLOPURINOL 2021-0 Yes [id number] 100mg TAKE 1 [facility] 100 mg 9-05 TABLET BY ity of tablet 00:00: [facility] DAILY Medical Branch ALLOPURINOL 2021-0 Yes [id number] 100mg TAKE 1 [facility] 100 mg 9-05 TABLET BY ity of tablet 00:00: [facility] DAILY Medical Branch ALLOPURINOL 2021-0 Yes [id number] 100mg TAKE 1 [facility] 100 mg 9-05 TABLET BY ity of tablet 00:00: [facility] DAILY Medical Branch ALLOPURINOL 2021-0 Yes [id number] 100mg TAKE 1 [facility] 100 mg 9-05 TABLET BY ity of tablet 00:00: [facility] DAILY Medical Branch ALLOPURINOL 2-0 Yes [id number] 100mg TAKE 1 [facility] 100 mg 9-05 TABLET BY ity of tablet 00:00: [facility] DAILY Medical Branch ALLOPURINOL 2021-0 Yes [id number] 100mg TAKE 1 [facility] 100 mg 9-05 TABLET BY ity of tablet 00:00: [facility] DAILY Medical Branch ALLOPURINOL 2-0 Yes [id number] 100mg TAKE 1 [facility] 100 mg 9-05 TABLET BY ity of tablet 00:00: [facility] DAILY Medical Branch ALLOPURINOL 2-0 Yes [id number] 100mg TAKE 1 [facility] 100 mg 9-05 TABLET BY ity of tablet 00:00: [facility] DAILY Medical Branch ALLOPURINOL 2022-0 Yes [id number] 100mg TAKE 1 [facility] 100 mg 9-05 TABLET BY ity of tablet 00:00: [facility] DAILY Medical Branch ALLOPURINOL 2021-0 Yes [id number] 100mg TAKE 1 [facility] 100 mg 9-05 TABLET BY ity of tablet 00:00: DAILY Medical Branch ALLOPURINOL 2021-0 Yes [id number] 100mg TAKE 1 [facility] 100 mg 9-05 TABLET BY ity of tablet 00:00: DAILY Medical Branch ALLOPURINOL 2021-0 Yes [id number] 100mg TAKE 1 [facility] 100 mg 9-05 TABLET BY ity of tablet 00:00: DAILY Medical Branch ALLOPURINOL 2021-0 Yes [id number] 100mg TAKE 1 [facility] 100 mg 9-05 TABLET BY ity of tablet 00:00: DAILY Medical Branch ALLOPURINOL 2021-0 Yes [id number] 100mg TAKE 1 [facility] 100 mg 9-05 TABLET BY ity of tablet 00:00: DAILY Medical Branch ALLOPURINOL 2021-0 Yes [id number] 100mg TAKE 1 [facility] 100 mg 9-05 TABLET BY ity of tablet 00:00: DAILY [facility] Branch ALLOPURINOL 2021-0 Yes [id number] 100mg TAKE 1 [facility] 100 mg 9-05 TABLET BY ity of tablet 00:00: [facility] DAILY Medical Branch ALLOPURINOL 2021-0 Yes [id number] 100mg TAKE 1 [facility] 100 mg 9-05 TABLET BY ity of tablet 00:00: [facility] DAILY Medical Branch ALLOPURINOL 2021-0 Yes [id number] 100mg TAKE 1 [facility] 100 mg 9-05 TABLET BY ity of tablet 00:00: [facility] DAILY Medical Branch ALLOPURINOL 2021-0 Yes [id number] 100mg TAKE 1 [facility] 100 mg 9-05 TABLET BY ity of tablet 00:00: [facility] DAILY Medical Branch ALLOPURINOL 2021-0 Yes [id number] 100mg TAKE 1 [facility] 100 mg 9-05 TABLET BY ity of tablet 00:00: [facility] DAILY Medical Branch ALLOPURINOL 2021-0 Yes [id number] 100mg TAKE 1 [facility] 100 mg 9-05 TABLET BY ity of tablet 00:00: [facility] DAILY Medical Branch ALLOPURINOL 2022-0 Yes [id number] 100mg TAKE 1 [facility] 100 mg 9-05 TABLET BY ity of tablet 00:00: [facility] DAILY Medical Branch ALLOPURINOL 2021-0 Yes [id number] 100mg TAKE 1 [facility] 100 mg 9-05 TABLET BY ity of tablet 00:00: DAILY [facility] ALLOPURINOL 2-0 Yes [id number] 100mg TAKE 1 [facility] 100 mg 9-05 TABLET BY ity of tablet 00:00: DAILY [facility] ALLOPURINOL 2021-0 Yes [id number] 100mg TAKE 1 [facility] 100 mg 9-05 TABLET BY ity of tablet 00:00: DAILY [facility] ALLOPURINOL 2021-0 Yes [id number] 100mg TAKE 1 [facility] 100 mg 9-05 TABLET BY ity of tablet 00:00: [facility] DAILY Medical Branch ALLOPURINOL 2021-0 Yes [id number] 100mg TAKE 1 [facility] 100 mg 9-05 TABLET BY ity of tablet 00:00: [facility] DAILY Medical Branch ALLOPURINOL 2021-0 Yes [id number] 100mg TAKE 1 [facility] 100 mg 9-05 TABLET BY ity of tablet 00:00: [facility] DAILY Medical Branch ALLOPURINOL 2021-0 Yes [id number] 100mg TAKE 1 [facility] 100 mg 9-05 TABLET BY ity of tablet 00:00: [facility] DAILY Medical Branch ALLOPURINOL 2021-0 Yes [id number] 100mg TAKE 1 [facility] 100 mg 9-05 TABLET BY ity of tablet 00:00: [facility] DAILY Medical Branch ALLOPURINOL 2-0 Yes [id number] 100mg TAKE 1 [facility] 100 mg 9-05 TABLET BY ity of tablet 00:00: [facility] DAILY Medical Branch ALLOPURINOL 2-0 Yes [id number] 100mg TAKE 1 [facility] 100 mg 9-05 TABLET BY ity of tablet 00:00: [facility] DAILY Medical Branch ALLOPURINOL 2-0 Yes [id number] 100mg TAKE 1 [facility] 100 mg 9-05 TABLET BY ity of tablet 00:00: [facility] DAILY Medical Branch ALLOPURINOL 2-0 Yes [id number] 100mg TAKE 1 [facility] 100 mg 9-05 TABLET BY ity of tablet 00:00: [facility] DAILY Medical Branch ALLOPURINOL 2-0 Yes [id number] 100mg TAKE 1 [facility] 100 mg 9-05 TABLET BY ity of tablet 00:00: MOUTH [place] 00 DAILY Medical Branch ALLOPURINOL 2021-0 Yes [id number] 100mg TAKE 1 [facility] 100 mg 9-05 TABLET BY ity of tablet 00:00: [facility] 00 DAILY Medical Branch ALLOPURINOL 2021-0 3- No [id number] 100mg TAKE 1 [facility] 100 mg 9-05 05-09 TABLET BY ity of tablet 00:00: 00:00 [facility] 00 :00 DAILY Medical Branch ALLOPURINOL 2021-0 2022- No [id number] 100mg TAKE 1 [facility] 100 mg 9-05 05-09 TABLET BY ity of tablet 00:00: 00:00 [facility] 00 :00 DAILY Medical Branch ALLOPURINOL 2021-0 2022- No [id number] 100mg TAKE 1 [facility] 100 mg 9-05 05-09 TABLET BY ity of tablet 00:00: 00:00 [facility] 00 :00 DAILY Medical Branch ALLOPURINOL 2021-0 2022- No [id number] 100mg TAKE 1 [facility] 100 mg 9-05 05-09 TABLET BY ity of tablet 00:00: 00:00 [facility] 00 :00 DAILY Medical Branch ALLOPURINOL 2021-0 2022- No [id number] 100mg TAKE 1 [facility] 100 mg 9-05 05-09 TABLET BY ity of tablet 00:00: 00:00 [facility] 00 :00 DAILY Medical Branch ALLOPURINOL 2021-0 2022- No [id number] 100mg TAKE 1 [facility] 100 mg 9-05 05-09 TABLET BY ity of tablet 00:00: 00:00 [facility] 00 :00 DAILY Medical Branch ALLOPURINOL 2021-0 2022- No [id number] 100mg TAKE 1 [facility] 100 mg 9-05 05-09 TABLET BY ity of tablet 00:00: 00:00 [facility] 00 :00 DAILY Medical Branch GABAPENTIN 2021-0 2021- No [id number] TAKE 1 [facility] 600 mg 9-05 10-05 TABLET BY ity of tablet 00:00: 00:00 [facility] 00 :00 THREE Medical TIMES Branch DAILY GABAPENTIN 2-0 2021- No [id number] TAKE 1 [facility] 600 mg 9-05 10-05 TABLET BY ity of tablet 00:00: 00:00 [facility] 00 :00 THREE Medical TIMES Branch DAILY OMEPRAZOLE 2022-0 Yes [id number] 40mg TAKE 1 [facility] 40 mg 7-11 CAPSULE BY ity of capsule 00:00: MOUTH [place] DAILY Medical Branch IPRATROPIUM 2-0 Yes [id number] USE 2 U nivers 21 mcg 7-11 SPRAYS IN ity of (0.03 %) 00:00: EACH [place] nasal spray 00 NOSTRIL Medic al EVERY 12 Branch HOURS OMEPRAZOLE 2022-0 Yes [id number] 40mg TAKE 1 [facility] 40 mg 7-11 CAPSULE BY ity of capsule 00:00: MOUTH [place] DAILY Medical Branch IPRATROPIUM 2021-0 Yes [id number] USE 2 U nivers 21 mcg 7-11 SPRAYS IN ity of (0.03 %) 00:00: EACH [place] nasal spray 00 NOSTRIL Medic al EVERY 12 Branch HOURS OMEPRAZOLE 2021-0 Yes [id number] 40mg TAKE 1 [facility] 40 mg 7-11 CAPSULE BY ity of capsule 00:00: [facility] DAILY Medical Branch IPRATROPIUM 2021-0 Yes [id number] USE 2 U nivers 21 mcg 7-11 SPRAYS IN ity of (0.03 %) 00:00: EACH [place] nasal spray 00 NOSTRIL Medic al EVERY 12 Branch HOURS OMEPRAZOLE 2-0 Yes [id number] 40mg TAKE 1 [facility] 40 mg 7-11 CAPSULE BY ity of capsule 00:00: [facility] DAILY Medical Branch IPRATROPIUM 2021-0 Yes [id number] USE 2 U nivers 21 mcg 7-11 SPRAYS IN ity of (0.03 %) 00:00: EACH [place] nasal spray 00 NOSTRIL Medic al EVERY 12 Branch HOURS OMEPRAZOLE 2022-0 Yes [id number] 40mg TAKE 1 [facility] 40 mg 7-11 CAPSULE BY ity of capsule 00:00: MOUTH [place] DAILY Medical Branch IPRATROPIUM 2-0 Yes [id number] USE 2 U nivers 21 mcg 7-11 SPRAYS IN ity of (0.03 %) 00:00: EACH [place] nasal spray 00 NOSTRIL Medic al EVERY 12 Branch HOURS IPRATROPIUM 2022-0 Yes [id number] USE 2 U nivers 21 mcg 7-11 SPRAYS IN ity of (0.03 %) 00:00: EACH [place] nasal spray 00 NOSTRIL Medic al EVERY 12 Branch HOURS IPRATROPIUM 2022-0 Yes [id number] USE 2 U nivers 21 mcg 7-11 SPRAYS IN ity of (0.03 %) 00:00: EACH [place] nasal spray 00 NOSTRIL Medic al EVERY 12 Branch HOURS IPRATROPIUM 2022-0 Yes [id number] USE 2 U nivers 21 mcg 7-11 SPRAYS IN ity of (0.03 %) 00:00: EACH [place] nasal spray 00 NOSTRIL Medic al EVERY 12 Branch HOURS IPRATROPIUM 2022-0 Yes [id number] USE 2 U nivers 21 mcg 7-11 SPRAYS IN ity of (0.03 %) 00:00: EACH [place] nasal spray 00 NOSTRIL Medic al EVERY 12 Branch HOURS IPRATROPIUM 2022-0 Yes [id number] USE 2 U nivers 21 mcg 7-11 SPRAYS IN ity of (0.03 %) 00:00: EACH [place] nasal spray 00 NOSTRIL Medic al EVERY 12 Branch HOURS IPRATROPIUM 2022-0 Yes [id number] USE 2 U nivers 21 mcg 7-11 SPRAYS IN ity of (0.03 %) 00:00: EACH [place] nasal spray 00 NOSTRIL Medic al EVERY 12 Branch HOURS IPRATROPIUM 2022-0 Yes [id number] USE 2 U nivers 21 mcg 7-11 SPRAYS IN ity of (0.03 %) 00:00: EACH [place] nasal spray 00 NOSTRIL Medic al EVERY 12 Branch HOURS IPRATROPIUM 2022-0 Yes [id number] USE 2 U nivers 21 mcg 7-11 SPRAYS IN ity of (0.03 %) 00:00: EACH [place] nasal spray 00 NOSTRIL Medic al EVERY 12 Branch HOURS IPRATROPIUM 2022-0 Yes [id number] USE 2 U nivers 21 mcg 7-11 SPRAYS IN ity of (0.03 %) 00:00: EACH [place] nasal spray 00 NOSTRIL Medic al EVERY 12 Branch HOURS IPRATROPIUM 2022-0 Yes [id number] USE 2 U nivers 21 mcg 7-11 SPRAYS IN ity of (0.03 %) 00:00: EACH [place] nasal spray 00 NOSTRIL Medic al EVERY 12 Branch HOURS IPRATROPIUM 2022-0 Yes [id number] USE 2 U nivers 21 mcg 7-11 SPRAYS IN ity of (0.03 %) 00:00: EACH [place] nasal spray 00 NOSTRIL Medic al EVERY 12 Branch HOURS IPRATROPIUM 2022-0 Yes [id number] USE 2 U nivers 21 mcg 7-11 SPRAYS IN ity of (0.03 %) 00:00: EACH [place] nasal spray 00 NOSTRIL Medic al EVERY 12 Branch HOURS IPRATROPIUM 2022-0 Yes [id number] USE 2 U nivers 21 mcg 7-11 SPRAYS IN ity of (0.03 %) 00:00: EACH [place] nasal spray 00 NOSTRIL Medic al EVERY 12 Branch HOURS IPRATROPIUM 2022-0 Yes [id number] USE 2 U nivers 21 mcg 7-11 SPRAYS IN ity of (0.03 %) 00:00: EACH [place] nasal spray 00 NOSTRIL Medic al EVERY 12 Branch HOURS IPRATROPIUM 2022-0 Yes [id number] USE 2 U nivers 21 mcg 7-11 SPRAYS IN ity of (0.03 %) 00:00: EACH [place] nasal spray 00 NOSTRIL Medic al EVERY 12 Branch HOURS IPRATROPIUM 2022-0 Yes [id number] USE 2 U nivers 21 mcg 7-11 SPRAYS IN ity of (0.03 %) 00:00: EACH [place] nasal spray 00 NOSTRIL Medic al EVERY 12 Branch HOURS IPRATROPIUM 2022-0 Yes [id number] USE 2 U nivers 21 mcg 7-11 SPRAYS IN ity of (0.03 %) 00:00: EACH [place] nasal spray 00 NOSTRIL Medic al EVERY 12 Branch HOURS IPRATROPIUM 2022-0 Yes [id number] USE 2 U nivers 21 mcg 7-11 SPRAYS IN ity of (0.03 %) 00:00: EACH [place] nasal spray 00 NOSTRIL Medic al EVERY 12 Branch HOURS IPRATROPIUM 2022-0 Yes [id number] USE 2 U nivers 21 mcg 7-11 SPRAYS IN ity of (0.03 %) 00:00: EACH [place] nasal spray 00 NOSTRIL Medic al EVERY 12 Branch HOURS IPRATROPIUM 2022-0 Yes [id number] USE 2 U nivers 21 mcg 7-11 SPRAYS IN ity of (0.03 %) 00:00: EACH [place] nasal spray 00 NOSTRIL Medic al EVERY 12 Branch HOURS IPRATROPIUM 2022-0 Yes [id number] USE 2 U nivers 21 mcg 7-11 SPRAYS IN ity of (0.03 %) 00:00: EACH [place] nasal spray 00 NOSTRIL Medic al EVERY 12 Branch HOURS IPRATROPIUM 2022-0 Yes [id number] USE 2 U nivers 21 mcg 7-11 SPRAYS IN ity of (0.03 %) 00:00: EACH [place] nasal spray 00 NOSTRIL Medic al EVERY 12 Branch HOURS IPRATROPIUM 2022-0 Yes [id number] USE 2 U nivers 21 mcg 7-11 SPRAYS IN ity of (0.03 %) 00:00: EACH [place] nasal spray 00 NOSTRIL Medic al EVERY 12 Branch HOURS IPRATROPIUM 2022-0 Yes [id number] USE 2 U nivers 21 mcg 7-11 SPRAYS IN ity of (0.03 %) 00:00: EACH [place] nasal spray 00 NOSTRIL Medic al EVERY 12 Branch HOURS IPRATROPIUM 2022-0 Yes [id number] USE 2 U nivers 21 mcg 7-11 SPRAYS IN ity of (0.03 %) 00:00: EACH [place] nasal spray 00 NOSTRIL Medic al EVERY 12 Branch HOURS IPRATROPIUM 2022-0 Yes [id number] USE 2 U nivers 21 mcg 7-11 SPRAYS IN ity of (0.03 %) 00:00: EACH [place] nasal spray 00 NOSTRIL Medic al EVERY 12 Branch HOURS IPRATROPIUM 2022-0 Yes [id number] USE 2 U nivers 21 mcg 7-11 SPRAYS IN ity of (0.03 %) 00:00: EACH [place] nasal spray 00 NOSTRIL Medic al EVERY 12 Branch HOURS IPRATROPIUM 2022-0 Yes [id number] USE 2 U nivers 21 mcg 7-11 SPRAYS IN ity of (0.03 %) 00:00: EACH [place] nasal spray 00 NOSTRIL Medic al EVERY 12 Branch HOURS IPRATROPIUM 2022-0 Yes [id number] USE 2 U nivers 21 mcg 7-11 SPRAYS IN ity of (0.03 %) 00:00: EACH [place] nasal spray 00 NOSTRIL Medic al EVERY 12 Branch HOURS IPRATROPIUM 2022-0 Yes [id number] USE 2 U nivers 21 mcg 7-11 SPRAYS IN ity of (0.03 %) 00:00: EACH [place] nasal spray 00 NOSTRIL Medic al EVERY 12 Branch HOURS IPRATROPIUM 2022-0 Yes [id number] USE 2 U nivers 21 mcg 7-11 SPRAYS IN ity of (0.03 %) 00:00: EACH [place] nasal spray 00 NOSTRIL Medic al EVERY 12 Branch HOURS IPRATROPIUM 2022-0 Yes [id number] USE 2 U nivers 21 mcg 7-11 SPRAYS IN ity of (0.03 %) 00:00: EACH [place] nasal spray 00 NOSTRIL Medic al EVERY 12 Branch HOURS IPRATROPIUM 2022-0 Yes [id number] USE 2 U nivers 21 mcg 7-11 SPRAYS IN ity of (0.03 %) 00:00: EACH [place] nasal spray 00 NOSTRIL Medic al EVERY 12 Branch HOURS IPRATROPIUM 2022-0 Yes [id number] USE 2 U nivers 21 mcg 7-11 SPRAYS IN ity of (0.03 %) 00:00: EACH [place] nasal spray 00 NOSTRIL Medic al EVERY 12 Branch HOURS IPRATROPIUM 2022-0 Yes [id number] USE 2 U nivers 21 mcg 7-11 SPRAYS IN ity of (0.03 %) 00:00: EACH [place] nasal spray 00 NOSTRIL Medic al EVERY 12 Branch HOURS IPRATROPIUM 2022-0 Yes [id number] USE 2 U nivers 21 mcg 7-11 SPRAYS IN ity of (0.03 %) 00:00: EACH [place] nasal spray 00 NOSTRIL Medic al EVERY 12 Branch HOURS IPRATROPIUM 2022-0 Yes [id number] USE 2 U nivers 21 mcg 7-11 SPRAYS IN ity of (0.03 %) 00:00: EACH [place] nasal spray 00 NOSTRIL Medic al EVERY 12 Branch HOURS IPRATROPIUM 2022-0 Yes [id number] USE 2 U nivers 21 mcg 7-11 SPRAYS IN ity of (0.03 %) 00:00: EACH [place] nasal spray 00 NOSTRIL Medic al EVERY 12 Branch HOURS IPRATROPIUM 2022-0 Yes [id number] USE 2 U nivers 21 mcg 7-11 SPRAYS IN ity of (0.03 %) 00:00: EACH [place] nasal spray 00 NOSTRIL Medic al EVERY 12 Branch HOURS IPRATROPIUM 2022-0 Yes [id number] USE 2 U nivers 21 mcg 7-11 SPRAYS IN ity of (0.03 %) 00:00: EACH [place] nasal spray 00 NOSTRIL Medic al EVERY 12 Branch HOURS IPRATROPIUM 2022-0 Yes [id number] USE 2 U nivers 21 mcg 7-11 SPRAYS IN ity of (0.03 %) 00:00: EACH [place] nasal spray 00 NOSTRIL Medic al EVERY 12 Branch HOURS IPRATROPIUM 2022-0 Yes [id number] USE 2 U nivers 21 mcg 7-11 SPRAYS IN ity of (0.03 %) 00:00: EACH [place] nasal spray 00 NOSTRIL Medic al EVERY 12 Branch HOURS IPRATROPIUM 2022-0 Yes [id number] USE 2 U nivers 21 mcg 7-11 SPRAYS IN ity of (0.03 %) 00:00: EACH [place] nasal spray 00 NOSTRIL Medic al EVERY 12 Branch HOURS IPRATROPIUM 2022-0 Yes [id number] USE 2 U nivers 21 mcg 7-11 SPRAYS IN ity of (0.03 %) 00:00: EACH [place] nasal spray 00 NOSTRIL Medic al EVERY 12 Branch HOURS IPRATROPIUM 2022-0 Yes [id number] USE 2 U nivers 21 mcg 7-11 SPRAYS IN ity of (0.03 %) 00:00: EACH [place] nasal spray 00 NOSTRIL Medic al EVERY 12 Branch HOURS IPRATROPIUM 2022-0 Yes [id number] USE 2 U nivers 21 mcg 7-11 SPRAYS IN ity of (0.03 %) 00:00: EACH [place] nasal spray 00 NOSTRIL Medic al EVERY 12 Branch HOURS IPRATROPIUM 2022-0 Yes [id number] USE 2 U nivers 21 mcg 7-11 SPRAYS IN ity of (0.03 %) 00:00: EACH [place] nasal spray 00 NOSTRIL Medic al EVERY 12 Branch HOURS IPRATROPIUM 2022-0 Yes [id number] USE 2 U nivers 21 mcg 7-11 SPRAYS IN ity of (0.03 %) 00:00: EACH [place] nasal spray 00 NOSTRIL Medic al EVERY 12 Branch HOURS IPRATROPIUM 2022-0 Yes [id number] USE 2 U nivers 21 mcg 7-11 SPRAYS IN ity of (0.03 %) 00:00: EACH [place] nasal spray 00 NOSTRIL Medic al EVERY 12 Branch HOURS IPRATROPIUM 2022-0 Yes [id number] USE 2 U nivers 21 mcg 7-11 SPRAYS IN ity of (0.03 %) 00:00: EACH [place] nasal spray 00 NOSTRIL Medic al EVERY 12 Branch HOURS IPRATROPIUM 2022-0 Yes [id number] USE 2 U nivers 21 mcg 7-11 SPRAYS IN ity of (0.03 %) 00:00: EACH [place] nasal spray 00 NOSTRIL Medic al EVERY 12 Branch HOURS IPRATROPIUM 2022-0 Yes [id number] USE 2 U nivers 21 mcg 7-11 SPRAYS IN ity of (0.03 %) 00:00: EACH [place] nasal spray 00 NOSTRIL Medic al EVERY 12 Branch HOURS IPRATROPIUM 2022-0 Yes [id number] USE 2 U nivers 21 mcg 7-11 SPRAYS IN ity of (0.03 %) 00:00: EACH [place] nasal spray 00 NOSTRIL Medic al EVERY 12 Branch HOURS IPRATROPIUM 2022-0 Yes [id number] USE 2 U nivers 21 mcg 7-11 SPRAYS IN ity of (0.03 %) 00:00: EACH [place] nasal spray 00 NOSTRIL Medic al EVERY 12 Branch HOURS IPRATROPIUM 2022-0 Yes [id number] USE 2 U nivers 21 mcg 7-11 SPRAYS IN ity of (0.03 %) 00:00: EACH [place] nasal spray 00 NOSTRIL Medic al EVERY 12 Branch HOURS IPRATROPIUM 2022-0 Yes [id number] USE 2 U nivers 21 mcg 7-11 SPRAYS IN ity of (0.03 %) 00:00: EACH [place] nasal spray 00 NOSTRIL Medic al EVERY 12 Branch HOURS IPRATROPIUM 2022-0 Yes [id number] USE 2 U nivers 21 mcg 7-11 SPRAYS IN ity of (0.03 %) 00:00: EACH [place] nasal spray 00 NOSTRIL Medic al EVERY 12 Branch HOURS IPRATROPIUM 2022-0 Yes [id number] USE 2 U nivers 21 mcg 7-11 SPRAYS IN ity of (0.03 %) 00:00: EACH [place] nasal spray 00 NOSTRIL Medic al EVERY 12 Branch HOURS IPRATROPIUM 2022-0 Yes [id number] USE 2 U nivers 21 mcg 7-11 SPRAYS IN ity of (0.03 %) 00:00: EACH [place] nasal spray 00 NOSTRIL Medic al EVERY 12 Branch HOURS IPRATROPIUM 2022-0 Yes [id number] USE 2 U nivers 21 mcg 7-11 SPRAYS IN ity of (0.03 %) 00:00: EACH [place] nasal spray 00 NOSTRIL Medic al EVERY 12 Branch HOURS IPRATROPIUM 2022-0 Yes [id number] USE 2 U nivers 21 mcg 7-11 SPRAYS IN ity of (0.03 %) 00:00: EACH [place] nasal spray 00 NOSTRIL Medic al EVERY 12 Branch HOURS IPRATROPIUM 2022-0 Yes [id number] USE 2 U nivers 21 mcg 7-11 SPRAYS IN ity of (0.03 %) 00:00: EACH [place] nasal spray 00 NOSTRIL Medic al EVERY 12 Branch HOURS IPRATROPIUM 2022-0 Yes [id number] USE 2 U nivers 21 mcg 7-11 SPRAYS IN ity of (0.03 %) 00:00: EACH [place] nasal spray 00 NOSTRIL Medic al EVERY 12 Branch HOURS IPRATROPIUM 2022-0 Yes [id number] USE 2 U nivers 21 mcg 7-11 SPRAYS IN ity of (0.03 %) 00:00: EACH [place] nasal spray 00 NOSTRIL Medic al EVERY 12 Branch HOURS IPRATROPIUM 2022-0 Yes [id number] USE 2 U nivers 21 mcg 7-11 SPRAYS IN ity of (0.03 %) 00:00: EACH [place] nasal spray 00 NOSTRIL Medic al EVERY 12 Branch HOURS IPRATROPIUM 2022-0 2023- No [id number] USE 2 [facility] 21 mcg 7-11 07-14 SPRAYS IN ity of (0.03 %) 00:00: 00:00 EACH [place] nasal spray 00 :00 NOSTRIL Medic al EVERY 12 Branch HOURS IPRATROPIUM 2022-0 2023- No [id number] USE 2 [facility] 21 mcg 7-11 07-14 SPRAYS IN ity of (0.03 %) 00:00: 00:00 EACH [place] nasal spray 00 :00 NOSTRIL Medic al EVERY 12 Branch HOURS IPRATROPIUM 2022-0 2023- No [id number] USE 2 [facility] 21 mcg 7-11 07-14 SPRAYS IN ity of (0.03 %) 00:00: 00:00 EACH [place] nasal spray 00 :00 NOSTRIL Medic al EVERY 12 Branch HOURS IPRATROPIUM 2022- No [id number] USE 2 [facility] 21 mcg 7-11 07-14 SPRAYS IN ity of (0.03 %) 00:00: 00:00 EACH [place] nasal spray 00 :00 NOSTRIL Medic al EVERY 12 Branch HOURS OMEPRAZOLE 0 2021- No [id number] 40mg TAKE 1 [facility] 40 mg 7-11 10-05 CAPSULE BY ity of capsule 00:00: 00:00 MOUTH [place] 00 :00 DAILY Medical Branch OMEPRAZOLE 2021- No [id number] 40mg TAKE 1 [facility] 40 mg 7-11 10-05 CAPSULE BY ity of capsule 00:00: 00:00 MOUTH [place] 00 :00 DAILY Medical Branch PIOGLITAZON Yes [id number] TAKE 1 [facility] E 15 mg 7-05 TABLET BY ity of tablet 00:00: MOUTH [place] 00 EVERY DAY Medical Branch Diclofenac Yes [id number] Apply to [facility] Sodium 7-05 area(s) 4 ity of (VOLTAREN) 00:00: (four) [place] 1 % gel 00 times Medical daily. Branch lidocaine 5 Yes [id number] Apply to [facility] % gel 7-05 area(s) 2 ity of 00:00: (two) [place] 00 times Medical daily as Branch needed for Pain (scale 4-6). Apply 5g to affected areas BID PRN nicotine Yes [id number] 1{patch Apply 1 [facility] mg/24 hr 7-05 } Patch to ity of patch 00:00: area(s) [place] 00 daily. Medical Apply 21mg Branch patch daily x 6 weeks; then apply 14mf patch daily x 2 weeks; then apply 7mg patch daily x 2 weeks. Stop smoking on initiation of therapy nicotine Yes [id number] 1{patch Apply 1 [facility] mg/24 hr 7-05 } Patch to ity of patch 00:00: area(s) [place] 00 every 24 Medical (twenty-fo Branch ur) hours. Apply 21mg patch daily x 6 weeks; then apply 14mf patch daily x 2 weeks; then apply 7mg patch daily x 2 weeks. Stop smoking on initiation of therapy nicotine Yes [id number] 1{patch Apply 1 [facility] mg/24 hr 7-05 } Patch to ity of patch 00:00: area(s) [place] 00 every 24 Medical (twenty-fo Branch ur) hours. Apply 21mg patch daily x 6 weeks; then apply 14mf patch daily x 2 weeks; then apply 7mg patch daily x 2 weeks. Stop smoking on initiation of therapy PIOGLITAZON Yes [id number] TAKE 1 [facility] E 15 mg 7-05 TABLET BY ity of tablet 00:00: MOUTH [place] 00 EVERY DAY Medical Branch Diclofenac Yes [id number] Apply to [facility] Sodium 7-05 area(s) 4 ity of (VOLTAREN) 00:00: (four) [place] 1 % gel 00 times Medical daily. Branch lidocaine 5 Yes [id number] Apply to [facility] % gel 7-05 area(s) 2 ity of 00:00: (two) [place] 00 times Medical daily as Branch needed for Pain (scale 4-6). Apply 5g to affected areas BID PRN nicotine Yes [id number] 1{patch Apply 1 [facility] mg/24 hr 7-05 } Patch to ity of patch 00:00: area(s) [place] 00 daily. Medical Apply 21mg Branch patch daily x 6 weeks; then apply 14mf patch daily x 2 weeks; then apply 7mg patch daily x 2 weeks. Stop smoking on initiation of therapy nicotine 14 Yes [id number] 1{patch Apply 1 [facility] mg/24 hr 7-05 } Patch to ity of patch 00:00: area(s) [place] 00 every 24 Medical (twenty-fo Branch ur) hours. Apply 21mg patch daily x 6 weeks; then apply 14mf patch daily x 2 weeks; then apply 7mg patch daily x 2 weeks. Stop smoking on initiation of therapy nicotine 7 Yes [id number] 1{patch Apply 1 [facility] mg/24 hr 7-05 } Patch to ity of patch 00:00: area(s) [place] 00 every 24 Medical (twenty-fo Branch ur) hours. Apply 21mg patch daily x 6 weeks; then apply 14mf patch daily x 2 weeks; then apply 7mg patch daily x 2 weeks. Stop smoking on initiation of therapy PIOGLITAZON Yes [id number] TAKE 1 [facility] E 15 mg 7-05 TABLET BY ity of tablet 00:00: MOUTH [place] 00 EVERY DAY Medical Branch Diclofenac 2021- Yes [id number] Apply to [facility] Sodium 7-05 area(s) 4 ity of (VOLTAREN) 00:00: (four) [place] 1 % gel 00 times Medical daily. Branch lidocaine 5 Yes [id number] Apply to [facility] % gel 7-05 area(s) 2 ity of 00:00: (two) [place] 00 times Medical daily as Branch needed for Pain (scale 4-6). Apply 5g to affected areas BID PRN nicotine Yes [id number] 1{patch Apply 1 [facility] mg/24 hr 7-05 } Patch to ity of patch 00:00: area(s) [place] 00 daily. Medical Apply 21mg Branch patch daily x 6 weeks; then apply 14mf patch daily x 2 weeks; then apply 7mg patch daily x 2 weeks. Stop smoking on initiation of therapy nicotine 14 Yes [id number] 1{patch Apply 1 [facility] mg/24 hr 7-05 } Patch to ity of patch 00:00: area(s) [place] 00 every 24 Medical (twenty-fo Branch ur) hours. Apply 21mg patch daily x 6 weeks; then apply 14mf patch daily x 2 weeks; then apply 7mg patch daily x 2 weeks. Stop smoking on initiation of therapy nicotine 7 Yes [id number] 1{patch Apply 1 [facility] mg/24 hr 7-05 } Patch to ity of patch 00:00: area(s) [place] 00 every 24 Medical (twenty-fo Branch ur) hours. Apply 21mg patch daily x 6 weeks; then apply 14mf patch daily x 2 weeks; then apply 7mg patch daily x 2 weeks. Stop smoking on initiation of therapy PIOGLITAZON Yes [id number] TAKE 1 [facility] E 15 mg 7-05 TABLET BY ity of tablet 00:00: MOUTH [place] 00 EVERY DAY Medical Branch Diclofenac Yes [id number] Apply to [facility] Sodium 7-05 area(s) 4 ity of (VOLTAREN) 00:00: (four) [place] 1 % gel 00 times Medical daily. Branch lidocaine 5 Yes [id number] Apply to [facility] % gel 7-05 area(s) 2 ity of 00:00: (two) [place] 00 times Medical daily as Branch needed for Pain (scale 4-6). Apply 5g to affected areas BID PRN nicotine Yes [id number] 1{patch Apply 1 [facility] mg/24 hr 7-05 } Patch to ity of patch 00:00: area(s) [place] 00 daily. Medical Apply 21mg Branch patch daily x 6 weeks; then apply 14mf patch daily x 2 weeks; then apply 7mg patch daily x 2 weeks. Stop smoking on initiation of therapy nicotine Yes [id number] 1{patch Apply 1 [facility] mg/24 hr 7-05 } Patch to ity of patch 00:00: area(s) [place] 00 every 24 Medical (twenty-fo Branch ur) hours. Apply 21mg patch daily x 6 weeks; then apply 14mf patch daily x 2 weeks; then apply 7mg patch daily x 2 weeks. Stop smoking on initiation of therapy nicotine Yes [id number] 1{patch Apply 1 [facility] mg/24 hr 7-05 } Patch to ity of patch 00:00: area(s) [place] 00 every 24 Medical (twenty-fo Branch ur) hours. Apply 21mg patch daily x 6 weeks; then apply 14mf patch daily x 2 weeks; then apply 7mg patch daily x 2 weeks. Stop smoking on initiation of therapy PIOGLITAZON Yes [id number] TAKE 1 [facility] E 15 mg 7-05 TABLET BY ity of tablet 00:00: MOUTH [place] 00 EVERY DAY Medical Branch Diclofenac 2021- Yes [id number] Apply to [facility] Sodium 7-05 area(s) 4 ity of (VOLTAREN) 00:00: (four) [place] 1 % gel 00 times Medical daily. Branch lidocaine 5 Yes [id number] Apply to [facility] % gel 7-05 area(s) 2 ity of 00:00: (two) [place] 00 times Medical daily as Branch needed for Pain (scale 4-6). Apply 5g to affected areas BID PRN nicotine Yes [id number] 1{patch Apply 1 [facility] mg/24 hr 7-05 } Patch to ity of patch 00:00: area(s) [place] 00 daily. Medical Apply 21mg Branch patch daily x 6 weeks; then apply 14mf patch daily x 2 weeks; then apply 7mg patch daily x 2 weeks. Stop smoking on initiation of therapy nicotine 14 Yes [id number] 1{patch Apply 1 [facility] mg/24 hr 7-05 } Patch to ity of patch 00:00: area(s) [place] 00 every 24 Medical (twenty-fo Branch ur) hours. Apply 21mg patch daily x 6 weeks; then apply 14mf patch daily x 2 weeks; then apply 7mg patch daily x 2 weeks. Stop smoking on initiation of therapy nicotine Yes [id number] 1{patch Apply 1 [facility] mg/24 hr 7-05 } Patch to ity of patch 00:00: area(s) [place] 00 every 24 Medical (twenty-fo Branch ur) hours. Apply 21mg patch daily x 6 weeks; then apply 14mf patch daily x 2 weeks; then apply 7mg patch daily x 2 weeks. Stop smoking on initiation of therapy Diclofenac Yes [id number] Apply to [facility] Sodium 7-05 area(s) 4 ity of (VOLTAREN) 00:00: (four) [place] 1 % gel 00 times Medical daily. Branch lidocaine Yes [id number] Apply to [facility] % gel 7-05 area(s) 2 ity of 00:00: (two) [place] 00 times Medical daily as Branch needed for Pain (scale 4-6). Apply 5g to affected areas BID PRN nicotine Yes [id number] 1{patch Apply 1 [facility] mg/24 hr 7-05 } Patch to ity of patch 00:00: area(s) [place] 00 daily. Medical Apply 21mg Branch patch daily x 6 weeks; then apply 14mf patch daily x 2 weeks; then apply 7mg patch daily x 2 weeks. Stop smoking on initiation of therapy nicotine 14 Yes [id number] 1{patch Apply 1 [facility] mg/24 hr 7-05 } Patch to ity of patch 00:00: area(s) [place] 00 every 24 Medical (twenty-fo Branch ur) hours. Apply 21mg patch daily x 6 weeks; then apply 14mf patch daily x 2 weeks; then apply 7mg patch daily x 2 weeks. Stop smoking on initiation of therapy nicotine Yes [id number] 1{patch Apply 1 [facility] mg/24 hr 7-05 [...] affected areas BID PRN nicotine 21 Yes [id number] 1{patch Apply 1 [facility] mg/24 hr 7-05 } Patch to ity of patch 00:00: area(s) [place] 00 daily. Medical Apply 21mg Branch patch daily x 6 weeks; then apply 14mf patch daily x 2 weeks; then apply 7mg patch daily x 2 weeks. Stop smoking on initiation of therapy nicotine 14 Yes [id number] 1{patch Apply 1 [facility] mg/24 hr 7-05 } Patch to ity of patch 00:00: area(s) [place] 00 every 24 Medical (twenty-fo Branch ur) hours. Apply 21mg patch daily x 6 weeks; then apply 14mf patch daily x 2 weeks; then apply 7mg patch daily x 2 weeks. Stop smoking on initiation of therapy nicotine 7 Yes [id number] 1{patch Apply 1 [facility] mg/24 hr 7-05 [...] to affected areas BID PRN nicotine Yes [id number] 1{patch Apply 1 [facility] mg/24 hr 7-05 } Patch to ity of patch 00:00: area(s) [place] 00 daily. Medical Apply 21mg Branch patch daily x 6 weeks; then apply 14mf patch daily x 2 weeks; then apply 7mg patch daily x 2 weeks. Stop smoking on initiation of therapy nicotine Yes [id number] 1{patch Apply 1 [facility] mg/24 hr 7-05 } Patch to ity of patch 00:00: area(s) [place] 00 every 24 Medical (twenty-fo Branch ur) hours. Apply 21mg patch daily x 6 weeks; then apply 14mf patch daily x 2 weeks; then apply 7mg patch daily x 2 weeks. Stop smoking on initiation of therapy nicotine Yes [id number] 1{patch Apply 1 [facility] mg/24 hr 7-05 } Patch to ity of patch 00:00: area(s) [place] 00 every 24 Medical (twenty-fo Branch ur) hours. Apply 21mg patch daily x 6 weeks; then apply 14mf patch daily x 2 weeks; then apply 7mg patch daily x 2 weeks. Stop smoking on initiation of therapy Diclofenac Yes [id number] Apply to [facility] Sodium 7-05 area(s) 4 ity of (VOLTAREN) 00:00: (four) [place] 1 % gel 00 times Medical daily. Branch lidocaine 5 Yes [id number] Apply to [facility] % gel 7-05 area(s) 2 ity of 00:00: (two) [place] 00 times Medical daily as Branch needed for Pain (scale 4-6). Apply 5g to affected areas BID PRN nicotine Yes [id number] 1{patch Apply 1 [facility] mg/24 hr 7-05 } Patch to ity of patch 00:00: area(s) [place] 00 daily. Medical Apply 21mg Branch patch daily x 6 weeks; then apply 14mf patch daily x 2 weeks; then apply 7mg patch daily x 2 weeks. Stop smoking on initiation of therapy nicotine Yes [id number] 1{patch Apply 1 [facility] mg/24 hr 7-05 } Patch to ity of patch 00:00: area(s) [place] 00 every 24 Medical (twenty-fo Branch ur) hours. Apply 21mg patch daily x 6 weeks; then apply 14mf patch daily x 2 weeks; then apply 7mg patch daily x 2 weeks. Stop smoking on initiation of therapy nicotine 7 Yes [id number] 1{patch Apply 1 [facility] mg/24 hr 7-05 } Patch to ity of patch 00:00: area(s) [place] 00 every 24 Medical (twenty-fo Branch ur) hours. Apply 21mg patch daily x 6 weeks; then apply 14mf patch daily x 2 weeks; then apply 7mg patch daily x 2 weeks. Stop smoking on initiation of therapy Diclofenac Yes [id number] Apply to [facility] Sodium 7-05 area(s) 4 ity of (VOLTAREN) 00:00: (four) [place] 1 % gel 00 times Medical daily. Branch lidocaine Yes [id number] Apply to [facility] % gel 7-05 area(s) 2 ity of 00:00: (two) [place] 00 times Medical daily as Branch needed for Pain (scale 4-6). Apply 5g to affected areas BID PRN nicotine Yes [id number] 1{patch Apply 1 [facility] mg/24 hr 7-05 } Patch to ity of patch 00:00: area(s) [place] 00 daily. Medical Apply 21mg Branch patch daily x 6 weeks; then apply 14mf patch daily x 2 weeks; then apply 7mg patch daily x 2 weeks. Stop smoking on initiation of therapy nicotine 14 Yes [id number] 1{patch Apply 1 [facility] mg/24 hr 7-05 } Patch to ity of patch 00:00: area(s) [place] 00 every 24 Medical (twenty-fo Branch ur) hours. Apply 21mg patch daily x 6 weeks; then apply 14mf patch daily x 2 weeks; then apply 7mg patch daily x 2 weeks. Stop smoking on initiation of therapy nicotine Yes [id number] 1{patch Apply 1 [facility] mg/24 hr 7-05 [...] to affected areas BID PRN nicotine Yes [id number] 1{patch Apply 1 [facility] mg/24 hr 7-05 } Patch to ity of patch 00:00: area(s) [place] 00 daily. Medical Apply 21mg Branch patch daily x 6 weeks; then apply 14mf patch daily x 2 weeks; then apply 7mg patch daily x 2 weeks. Stop smoking on initiation of therapy nicotine 14 Yes [id number] 1{patch Apply 1 [facility] mg/24 hr 7-05 } Patch to ity of patch 00:00: area(s) [place] 00 every 24 Medical (twenty-fo Branch ur) hours. Apply 21mg patch daily x 6 weeks; then apply 14mf patch daily x 2 weeks; then apply 7mg patch daily x 2 weeks. Stop smoking on initiation of therapy nicotine Yes [id number] 1{patch Apply 1 [facility] mg/24 hr 7-05 } Patch to ity of patch 00:00: area(s) [place] 00 every 24 Medical (twenty-fo Branch ur) hours. Apply 21mg patch daily x 6 weeks; then apply 14mf patch daily x 2 weeks; then apply 7mg patch daily x 2 weeks. Stop smoking on initiation of therapy Diclofenac Yes [id number] Apply to [facility] Sodium 7-05 area(s) 4 ity of (VOLTAREN) 00:00: (four) [place] 1 % gel 00 times Medical daily. Branch lidocaine 5 2021- Yes [id number] Apply to [facility] % gel 7-05 area(s) 2 ity of 00:00: (two) [place] 00 times Medical daily as Branch needed for Pain (scale 4-6). Apply 5g to affected areas BID PRN nicotine 21 2021- Yes [id number] 1{patch Apply 1 [facility] mg/24 hr 7-05 } Patch to ity of patch 00:00: area(s) [place] 00 daily. Medical Apply 21mg Branch patch daily x 6 weeks; then apply 14mf patch daily x 2 weeks; then apply 7mg patch daily x 2 weeks. Stop smoking on initiation of therapy nicotine Yes [id number] 1{patch Apply 1 [facility] mg/24 hr 7-05 } Patch to ity of patch 00:00: area(s) [place] 00 every 24 Medical (twenty-fo Branch ur) hours. Apply 21mg patch daily x 6 weeks; then apply 14mf patch daily x 2 weeks; then apply 7mg patch daily x 2 weeks. Stop smoking on initiation of therapy nicotine Yes [id number] 1{patch Apply 1 [facility] mg/24 hr 7-05 } Patch to ity of patch 00:00: area(s) [place] 00 every 24 Medical (twenty-fo Branch ur) hours. Apply 21mg patch daily x 6 weeks; then apply 14mf patch daily x 2 weeks; then apply 7mg patch daily x 2 weeks. Stop smoking on initiation of therapy Diclofenac Yes [id number] Apply to [facility] Sodium 7-05 area(s) 4 ity of (VOLTAREN) 00:00: (four) [place] 1 % gel 00 times Medical daily. Branch lidocaine Yes [id number] Apply to [facility] % gel 7-05 area(s) 2 ity of 00:00: (two) [place] 00 times Medical daily as Branch needed for Pain (scale 4-6). Apply 5g to affected areas BID PRN nicotine Yes [id number] 1{patch Apply 1 [facility] mg/24 hr 7-05 } Patch to ity of patch 00:00: area(s) [place] 00 daily. Medical Apply 21mg Branch patch daily x 6 weeks; then apply 14mf patch daily x 2 weeks; then apply 7mg patch daily x 2 weeks. Stop smoking on initiation of therapy nicotine 14 Yes [id number] 1{patch Apply 1 [facility] mg/24 hr 7-05 } Patch to ity of patch 00:00: area(s) [place] 00 every 24 Medical (twenty-fo Branch ur) hours. Apply 21mg patch daily x 6 weeks; then apply 14mf patch daily x 2 weeks; then apply 7mg patch daily x 2 weeks. Stop smoking on initiation of therapy nicotine 7 Yes [id number] 1{patch Apply 1 [facility] mg/24 hr 7-05 [...] times Medical daily. Branch lidocaine 5 Yes [id number] Apply to [facility] % gel 7-05 area(s) 2 ity of 00:00: (two) [place] 00 times Medical daily as Branch needed for Pain (scale 4-6). Apply 5g to affected areas BID PRN nicotine 21 Yes [id number] 1{patch Apply 1 [facility] mg/24 hr 7-05 } Patch to ity of patch 00:00: area(s) [place] 00 daily. Medical Apply 21mg Branch patch daily x 6 weeks; then apply 14mf patch daily x 2 weeks; then apply 7mg patch daily x 2 weeks. Stop smoking on initiation of therapy nicotine 14 2021- Yes [id number] 1{patch Apply 1 [facility] mg/24 hr 7-05 } Patch to ity of patch 00:00: area(s) [place] 00 every 24 Medical (twenty-fo Branch ur) hours. Apply 21mg patch daily x 6 weeks; then apply 14mf patch daily x 2 weeks; then apply 7mg patch daily x 2 weeks. Stop smoking on initiation of therapy nicotine 7 Yes [id number] 1{patch Apply 1 [facility] mg/24 hr 7-05 } Patch to ity of patch 00:00: area(s) [place] 00 every 24 Medical (twenty-fo Branch ur) hours. Apply 21mg patch daily x 6 weeks; then apply 14mf patch daily x 2 weeks; then apply 7mg patch daily x 2 weeks. Stop smoking on initiation of therapy Diclofenac 2021- Yes [id number] Apply to [facility] Sodium 7-05 area(s) 4 ity of (VOLTAREN) 00:00: (four) [place] 1 % gel 00 times Medical daily. Branch lidocaine 5 Yes Apply to [facility] % gel 7-05 area(s) 2 ity of 00:00: (two) [place] 00 times Medical daily as Branch needed for Pain (scale 4-6). Apply 5g to affected areas BID PRN nicotine Yes [id number] 1{patch Apply 1 [facility] mg/24 hr 7-05 } Patch to ity of patch 00:00: area(s) [place] 00 daily. Medical Apply 21mg Branch patch daily x 6 weeks; then apply 14mf patch daily x 2 weeks; then apply 7mg patch daily x 2 weeks. Stop smoking on initiation of therapy nicotine Yes [id number] 1{patch Apply 1 [facility] mg/24 hr 7-05 } Patch to ity of patch 00:00: area(s) [place] 00 every 24 Medical (twenty-fo Branch ur) hours. Apply 21mg patch daily x 6 weeks; then apply 14mf patch daily x 2 weeks; then apply 7mg patch daily x 2 weeks. Stop smoking on initiation of therapy nicotine Yes [id number] 1{patch Apply 1 [facility] mg/24 hr 7-05 } Patch to ity of patch 00:00: area(s) [place] 00 every 24 Medical (twenty-fo Branch ur) hours. Apply 21mg patch daily x 6 weeks; then apply 14mf patch daily x 2 weeks; then apply 7mg patch daily x 2 weeks. Stop smoking on initiation of therapy Diclofenac Yes [id number] Apply to [facility] Sodium 7-05 area(s) 4 ity of (VOLTAREN) 00:00: (four) [place] 1 % gel 00 times Medical daily. Branch lidocaine Yes [id number] Apply to [facility] % gel 7-05 area(s) 2 ity of 00:00: (two) [place] 00 times Medical daily as Branch needed for Pain (scale 4-6). Apply 5g to affected areas BID PRN nicotine Yes [id number] 1{patch Apply 1 [facility] mg/24 hr 7-05 } Patch to ity of patch 00:00: area(s) [place] 00 daily. Medical Apply 21mg Branch patch daily x 6 weeks; then apply 14mf patch daily x 2 weeks; then apply 7mg patch daily x 2 weeks. Stop smoking on initiation of therapy nicotine Yes [id number] 1{patch Apply 1 [facility] mg/24 hr 7-05 } Patch to ity of patch 00:00: area(s) [place] 00 every 24 Medical (twenty-fo Branch ur) hours. Apply 21mg patch daily x 6 weeks; then apply 14mf patch daily x 2 weeks; then apply 7mg patch daily x 2 weeks. Stop smoking on initiation of therapy nicotine 7 Yes [id number] 1{patch Apply 1 [facility] mg/24 hr 7-05 } Patch to ity of patch 00:00: area(s) [place] 00 every 24 Medical (twenty-fo Branch ur) hours. Apply 21mg patch daily x 6 weeks; then apply 14mf patch daily x 2 weeks; then apply 7mg patch daily x 2 weeks. Stop smoking on initiation of therapy Diclofenac Yes [id number] Apply to [facility] Sodium 7-05 area(s) 4 ity of (VOLTAREN) 00:00: (four) [place] 1 % gel 00 times Medical daily. Branch lidocaine 5 Yes [id number] Apply to [facility] % gel 7-05 area(s) 2 ity of 00:00: (two) [place] 00 times Medical daily as Branch needed for Pain (scale 4-6). Apply 5g to affected areas BID PRN nicotine Yes [id number] 1{patch Apply 1 [facility] mg/24 hr 7-05 } Patch to ity of patch 00:00: area(s) [place] 00 daily. Medical Apply 21mg Branch patch daily x 6 weeks; then apply 14mf patch daily x 2 weeks; then apply 7mg patch daily x 2 weeks. Stop smoking on initiation of therapy nicotine 14 Yes [id number] 1{patch Apply 1 [facility] mg/24 hr 7-05 } Patch to ity of patch 00:00: area(s) [place] 00 every 24 Medical (twenty-fo Branch ur) hours. Apply 21mg patch daily x 6 weeks; then apply 14mf patch daily x 2 weeks; then apply 7mg patch daily x 2 weeks. Stop smoking on initiation of therapy nicotine 7 Yes [id number] 1{patch Apply 1 [facility] mg/24 hr 7-05 [...] affected areas BID PRN nicotine 21 Yes [id number] 1{patch Apply 1 [facility] mg/24 hr 7-05 } Patch to ity of patch 00:00: area(s) [place] 00 daily. Medical Apply 21mg Branch patch daily x 6 weeks; then apply 14mf patch daily x 2 weeks; then apply 7mg patch daily x 2 weeks. Stop smoking on initiation of therapy nicotine 14 Yes [id number] 1{patch Apply 1 [facility] mg/24 hr 7-05 } Patch to ity of patch 00:00: area(s) [place] 00 every 24 Medical (twenty-fo Branch ur) hours. Apply 21mg patch daily x 6 weeks; then apply 14mf patch daily x 2 weeks; then apply 7mg patch daily x 2 weeks. Stop smoking on initiation of therapy nicotine 7 Yes [id number] 1{patch Apply 1 [facility] mg/24 hr 7-05 [...] to affected areas BID PRN nicotine Yes [id number] 1{patch Apply 1 [facility] mg/24 hr 7-05 } Patch to ity of patch 00:00: area(s) [place] 00 daily. Medical Apply 21mg Branch patch daily x 6 weeks; then apply 14mf patch daily x 2 weeks; then apply 7mg patch daily x 2 weeks. Stop smoking on initiation of therapy nicotine Yes [id number] 1{patch Apply 1 [facility] mg/24 hr 7-05 } Patch to ity of patch 00:00: area(s) [place] 00 every 24 Medical (twenty-fo Branch ur) hours. Apply 21mg patch daily x 6 weeks; then apply 14mf patch daily x 2 weeks; then apply 7mg patch daily x 2 weeks. Stop smoking on initiation of therapy nicotine Yes [id number] 1{patch Apply 1 [facility] mg/24 hr 7-05 } Patch to ity of patch 00:00: area(s) [place] 00 every 24 Medical (twenty-fo Branch ur) hours. Apply 21mg patch daily x 6 weeks; then apply 14mf patch daily x 2 weeks; then apply 7mg patch daily x 2 weeks. Stop smoking on initiation of therapy Diclofenac Yes [id number] Apply to [facility] Sodium 7-05 area(s) 4 ity of (VOLTAREN) 00:00: (four) [place] 1 % gel 00 times Medical daily. Branch lidocaine 5 Yes [id number] Apply to [facility] % gel 7-05 area(s) 2 ity of 00:00: (two) [place] 00 times Medical daily as Branch needed for Pain (scale 4-6). Apply 5g to affected areas BID PRN nicotine Yes [id number] 1{patch Apply 1 [facility] mg/24 hr 7-05 } Patch to ity of patch 00:00: area(s) [place] 00 daily. Medical Apply 21mg Branch patch daily x 6 weeks; then apply 14mf patch daily x 2 weeks; then apply 7mg patch daily x 2 weeks. Stop smoking on initiation of therapy nicotine Yes [id number] 1{patch Apply 1 [facility] mg/24 hr 7-05 } Patch to ity of patch 00:00: area(s) [place] 00 every 24 Medical (twenty-fo Branch ur) hours. Apply 21mg patch daily x 6 weeks; then apply 14mf patch daily x 2 weeks; then apply 7mg patch daily x 2 weeks. Stop smoking on initiation of therapy nicotine 7 2021-0 Yes [id number] 1{patch Apply 1 [facility] mg/24 hr 7-05 [...] Medical daily. Branch lidocaine 5 2-0 Yes [id number] Apply to [facility] % gel 7-05 area(s) [...] Medical daily. Branch lidocaine 5 2021-0 Yes [id number] Apply to [facility] % gel 7-05 area(s) [...] Medical daily. Branch lidocaine 5 2021-0 Yes [id number] Apply to [facility] % gel 7-05 area(s) [...] Medical daily. Branch lidocaine 5 2021-0 Yes [id number] Apply to [facility] % gel 7-05 area(s) 2 ity of 00:00: (two) [place] 00 times Medical daily as Branch needed for Pain (scale 4-6). Apply 5g to affected areas BID PRN Diclofenac 2022-0 Yes [id number] Apply to [facility] Sodium 7-05 area(s) 4 [...] Medical daily. Branch lidocaine 5 2021-0 Yes [id number] Apply to [facility] % gel 7-05 area(s) [...] Medical daily. Branch lidocaine 5 2021-0 Yes [id number] Apply to [facility] % gel 7-05 area(s) 2 ity of 00:00: (two) [place] 00 times Medical daily as Branch needed for Pain (scale 4-6). Apply 5g to affected areas BID PRN Diclofenac 2022-0 Yes [id number] Apply to [facility] Sodium 7-05 area(s) 4 [...] Medical daily. Branch lidocaine 5 2021-0 Yes [id number] Apply to [facility] % gel 7-05 area(s) [...] affected areas BID PRN Diclofenac 2022-0 Yes [id number] Apply to [facility] Sodium 7-05 area(s) 4 [...] to affected areas BID PRN nicotine 21 2022- No [id number] 1{patch Apply 1 [facility] mg/24 hr 7-05 -05 } Patch to ity of patch 00:00: 00:00 area(s) [place] 00 :00 daily. Medical Apply 21mg Branch patch daily x 6 weeks; then apply 14mf patch daily x 2 weeks; then apply 7mg patch daily x 2 weeks. Stop smoking on initiation of therapy nicotine 14 2022- No [id number] 1{patch Apply 1 [facility] mg/24 hr 7-05 01-05 } Patch to ity of patch 00:00: 00:00 area(s) [place] 00 :00 every 24 Medical (twenty-fo Branch ur) hours. Apply 21mg patch daily x 6 weeks; then apply 14mf patch daily x 2 weeks; then apply 7mg patch daily x 2 weeks. Stop smoking on initiation of therapy nicotine 7 2022- No [id number] 1{patch Apply 1 [facility] mg/24 hr 7-05 01-05 } Patch to ity of patch 00:00: 00:00 area(s) [place] 00 :00 every 24 Medical (twenty-fo Branch ur) hours. Apply 21mg patch daily x 6 weeks; then apply 14mf patch daily x 2 weeks; then apply 7mg patch daily x 2 weeks. Stop smoking on initiation of therapy nicotine 2022- No [id number] 1{patch Apply 1 [facility] mg/24 hr 7-03 04-05 } Patch to ity of patch 00:00: 00:00 [facility](s) [place] 00 :00 daily. Medical Apply 21mg Branch patch daily x 6 weeks; then apply 14mf patch daily x 2 weeks; then apply 7mg patch daily x 2 weeks. Stop smoking on initiation of therapy nicotine 2022- No [id number] 1{patch Apply 1 [facility] mg/24 hr 7-03 04-05 } Patch to ity of patch 00:00: 00:00 [facility](s) [place] 00 :00 every 24 Medical (twenty- Branch ur) hours. Apply 21mg patch daily x 6 weeks; then apply 14mf patch daily x 2 weeks; then apply 7mg patch daily x 2 weeks. Stop smoking on initiation of therapy nicotine 2022- No [id number] 1{patch Apply 1 [facility] mg/24 hr 7-03 04-05 } Patch to ity of patch 00:00: 00:00 [facility](s) [place] 00 :00 every 24 Medical (twenty- Branch ur) hours. Apply 21mg patch daily x 6 weeks; then apply 14mf patch daily x 2 weeks; then apply 7mg patch daily x 2 weeks. Stop smoking on initiation of therapy nicotine 2022- No [id number] 1{patch Apply 1 [facility] mg/24 hr 7-03 04-05 } Patch to ity of patch 00:00: 00:00 [facility](s) [place] 00 :00 daily. Medical Apply 21mg Branch patch daily x 6 weeks; then apply 14mf patch daily x 2 weeks; then apply 7mg patch daily x 2 weeks. Stop smoking on initiation of therapy nicotine 2022- No [id number] 1{patch Apply 1 [facility] mg/24 hr 7-05 -05 } Patch to ity of patch 00:00: 00:00 area(s) [place] 00 :00 every 24 Medical (twenty-fo Branch ur) hours. Apply 21mg patch daily x 6 weeks; then apply 14mf patch daily x 2 weeks; then apply 7mg patch daily x 2 weeks. Stop smoking on initiation of therapy nicotine 2022- No [id number] 1{patch Apply 1 [facility] mg/24 hr 7-05 -05 } Patch to ity of patch 00:00: 00:00 area(s) [place] 00 :00 every 24 Medical (twenty- Branch ur) hours. Apply 21mg patch daily x 6 weeks; then apply 14mf patch daily x 2 weeks; then apply 7mg patch daily x 2 weeks. Stop smoking on initiation of therapy nicotine 2022- No [id number] 1{patch Apply 1 [facility] mg/24 hr 7-05 -05 } Patch to ity of patch 00:00: 00:00 [facility](s) [place] 00 :00 daily. Medical Apply 21mg Branch patch daily x 6 weeks; then apply 14mf patch daily x 2 weeks; then apply 7mg patch daily x 2 weeks. Stop smoking on initiation of therapy nicotine 14 No [id number] 1{patch Apply 1 [facility] mg/24 hr 7-05 -05 } Patch to ity of patch 00:00: 00:00 [facility](s) [place] 00 :00 every 24 Medical ([facility]- Branch ur) hours. Apply 21mg patch daily x 6 weeks; then apply 14mf patch daily x 2 weeks; then apply 7mg patch daily x 2 weeks. Stop smoking on initiation of therapy nicotine 2022- No [id number] 1{patch Apply 1 [facility] mg/24 hr 7-05 -05 } Patch to ity of patch 00:00: 00:00 area(s) [place] 00 :00 every 24 Medical (twenty- Branch ur) hours. Apply 21mg patch daily x 6 weeks; then apply 14mf patch daily x 2 weeks; then apply 7mg patch daily x 2 weeks. Stop smoking on initiation of therapy PIOGLITAZON 2021- No [id number] TAKE 1 [facility] E 15 mg 7-05 10-05 TABLET BY ity of tablet 00:00: 00:00 MOUTH [place] 00 :00 EVERY DAY Medical Branch PIOGLITAZON 2021- No [id number] TAKE 1 [facility] E 15 mg 7-05 10-05 TABLET BY ity of tablet 00:00: 00:00 MOUTH [place] 00 :00 EVERY DAY Medical Branch gabapentin 2021-0 Yes [id number] 600mg Take 1 [facility] 600 mg 5-31 tablet by ity of tablet 00:00: mouth 3 [place] 00 (three) Medical times Branch daily. furosemide 2021-0 Yes [id number] Take lasix [facility] (LASIX) 40 5-31 40 mg BID ity of mg tablet 00:00: [place] 00 Medical Branch allopurinoL 2021-0 Yes [id number] 100mg Take 1 [facility] 100 mg 5-31 tablet by ity of tablet 00:00: mouth [place] 00 daily. Medical Branch gabapentin 2021-0 Yes [id number] 600mg Take 1 [facility] 600 mg 5-31 tablet by ity of tablet 00:00: mouth 3 [place] 00 (three) Medical times Branch daily. furosemide 2021-0 Yes [id number] Take lasix [facility] (LASIX) 40 5-31 40 mg BID ity of mg tablet 00:00: [place] 00 Medical Branch allopurinoL 2021-0 Yes [id number] 100mg Take 1 [facility] 100 mg 5-31 tablet by ity of tablet 00:00: mouth [place] 00 daily. Medical Branch furosemide 2021-0 Yes [id number] Take lasix [facility] (LASIX) 40 5-31 40 mg BID ity of mg tablet 00:00: [place] 00 Medical Branch furosemide 2021-0 Yes [id number] Take lasix [facility] (LASIX) 40 5-31 40 mg BID ity of mg tablet 00:00: [place] 00 Medical Branch furosemide 2-0 Yes [id number] Take lasix [facility] (LASIX) 40 5-31 40 mg BID ity of mg tablet 00:00: [place] 00 Medical Branch furosemide 2022-0 2022- No [id number] Take lasix [facility] (LASIX) 40 5-31 10-05 40 mg BID ity of mg tablet 00:00: 00:00 [place] 00 :00 Medical Branch furosemide 2022-0 2022- No [id number] Take lasix [facility] (LASIX) 40 5-31 10-05 40 mg BID ity of mg tablet 00:00: 00:00 [place] 00 :00 Medical Branch gabapentin 2022-0 2- No [id number] 600mg Take 1 [facility] 600 mg 5-31 09-05 tablet by ity of tablet 00:00: 00:00 mouth 3 [place] 00 :00 (three) Medical times Branch daily. allopurinoL 2021- No [id number] 100mg Take 1 [facility] 100 mg 04-03 tablet by ity of tablet 00:00: 00:00 mouth [place] 00 :00 daily. Medical Branch blood sugar 2021-0 Yes [id number] CHECK [facility] diagnostic 5-19 BLOOD ity of (ONETOUCH 00:00: GLUCOSE [place] ULTRA TEST) 00 FOUR TIMES Me dical strip DAILY Branch blood sugar 2021-0 Yes [id number] CHECK [facility] diagnostic 5-19 BLOOD ity of (ONETOUCH 00:00: GLUCOSE [place] ULTRA TEST) 00 FOUR TIMES Me dical strip DAILY Branch blood sugar 2021-0 Yes [id number] CHECK [facility] diagnostic 5-19 BLOOD ity of (ONETOUCH 00:00: GLUCOSE [place] ULTRA TEST) 00 FOUR TIMES Me dical strip DAILY Branch blood sugar 2021-0 Yes [id number] CHECK [facility] diagnostic 5-19 BLOOD ity of (ONETOUCH 00:00: GLUCOSE [place] ULTRA TEST) 00 FOUR TIMES Me dical strip DAILY Branch blood sugar 2021-0 Yes [id number] CHECK [facility] diagnostic 5-19 BLOOD ity of (ONETOUCH 00:00: GLUCOSE [place] ULTRA TEST) 00 FOUR TIMES Me dical strip DAILY Branch blood sugar 2021-0 Yes [id number] CHECK [facility] diagnostic 5-19 BLOOD ity of (ONETOUCH 00:00: GLUCOSE [place] ULTRA TEST) 00 FOUR TIMES Me dical strip DAILY Branch blood sugar 2021-0 Yes [id number] CHECK [facility] diagnostic 5-19 BLOOD ity of (ONETOUCH 00:00: GLUCOSE [place] ULTRA TEST) 00 FOUR TIMES Me dical strip DAILY Branch blood sugar 2021-0 Yes [id number] CHECK [facility] diagnostic 5-19 BLOOD ity of (ONETOUCH 00:00: GLUCOSE [place] ULTRA TEST) 00 FOUR TIMES Me dical strip DAILY Branch blood sugar 2021-0 Yes [id number] CHECK [facility] diagnostic 5-19 BLOOD ity of (ONETOUCH 00:00: GLUCOSE [place] ULTRA TEST) 00 FOUR TIMES Me dical strip DAILY Branch blood sugar 2021-0 Yes [id number] CHECK [facility] diagnostic 5-19 BLOOD ity of (ONETOUCH 00:00: GLUCOSE [place] ULTRA TEST) 00 FOUR TIMES Me dical strip DAILY Branch blood sugar 2022-0 Yes [id number] CHECK [facility] diagnostic 5-19 BLOOD ity of (ONETOUCH 00:00: GLUCOSE [place] ULTRA TEST) 00 FOUR TIMES Me dical strip DAILY [facility] blood sugar 2-0 Yes [id number] CHECK [facility] 5-19 BLOOD ity of (ONETOUCH 00:00: GLUCOSE [place] ULTRA TEST) 00 FOUR TIMES Me dical strip DAILY [facility] blood sugar 2-0 Yes [id number] CHECK [facility] diagnostic 5-19 BLOOD ity of (ONETOUCH 00:00: GLUCOSE [place] ULTRA TEST) 00 FOUR TIMES Me dical strip DAILY [facility] blood sugar 2-0 Yes [id number] CHECK [facility] diagnostic 5-19 BLOOD ity of (ONETOUCH 00:00: GLUCOSE [place] ULTRA TEST) 00 FOUR TIMES Me dical strip DAILY [facility] blood sugar 2021-0 Yes [id number] CHECK [facility] diagnostic 5-19 BLOOD ity of (ONETOUCH 00:00: GLUCOSE [place] ULTRA TEST) 00 FOUR TIMES Me dical strip DAILY [facility] blood sugar 2-0 Yes [id number] CHECK [facility] diagnostic 5-19 BLOOD ity of (ONETOUCH 00:00: GLUCOSE [place] ULTRA TEST) 00 FOUR TIMES Me dical strip DAILY [facility] blood sugar 2-0 Yes [id number] CHECK [facility] diagnostic 5-19 BLOOD ity of (ONETOUCH 00:00: GLUCOSE [place] ULTRA TEST) 00 FOUR TIMES Me dical strip DAILY [facility] blood sugar 2-0 Yes [id number] CHECK [facility] diagnostic 5-19 BLOOD ity of (ONETOUCH 00:00: GLUCOSE [place] ULTRA TEST) 00 FOUR TIMES Me dical strip DAILY [facility] blood sugar 2-0 Yes [id number] CHECK [facility] diagnostic 5-19 BLOOD ity of (ONETOUCH 00:00: GLUCOSE [place] ULTRA TEST) 00 FOUR TIMES Me dical strip DAILY [facility] blood sugar 2-0 Yes [id number] CHECK [facility] diagnostic 5-19 BLOOD ity of (ONETOUCH 00:00: GLUCOSE [place] ULTRA TEST) 00 FOUR TIMES Me dical strip DAILY [facility] blood sugar 2022-0 Yes [id number] CHECK [facility] diagnostic 5-19 BLOOD ity of (ONETOUCH 00:00: GLUCOSE [place] ULTRA TEST) 00 FOUR TIMES Me dical strip DAILY [facility] blood sugar 2-0 Yes [id number] CHECK [facility] diagnostic 5-19 BLOOD ity of (ONETOUCH 00:00: GLUCOSE [place] ULTRA TEST) 00 FOUR TIMES Me dical strip DAILY [facility] blood sugar 2-0 Yes [id number] CHECK [facility] diagnostic 5-19 BLOOD ity of (ONETOUCH 00:00: GLUCOSE [place] ULTRA TEST) 00 FOUR TIMES Me dical strip DAILY [facility] blood sugar 2-0 Yes [id number] CHECK [facility] diagnostic 5-19 BLOOD ity of (ONETOUCH 00:00: GLUCOSE [place] ULTRA TEST) 00 FOUR TIMES Me dical strip DAILY [facility] blood sugar 2-0 Yes [id number] CHECK [facility] diagnostic 5-19 BLOOD ity of (ONETOUCH 00:00: GLUCOSE [place] ULTRA TEST) 00 FOUR TIMES Me dical strip DAILY [facility] blood sugar 2-0 Yes [id number] CHECK [facility] diagnostic 5-19 BLOOD ity of (ONETOUCH 00:00: GLUCOSE [place] ULTRA TEST) 00 FOUR TIMES Me dical strip DAILY [facility] blood sugar 2-0 Yes [id number] CHECK [facility] diagnostic 5-19 BLOOD ity of (ONETOUCH 00:00: GLUCOSE [place] ULTRA TEST) 00 FOUR TIMES Me dical strip DAILY [facility] blood sugar 2021-0 Yes [id number] CHECK [facility] diagnostic 5-19 BLOOD ity of (ONETOUCH 00:00: GLUCOSE [place] ULTRA TEST) 00 FOUR TIMES Me dical strip DAILY [facility] blood sugar 2-0 Yes [id number] CHECK [facility] diagnostic 5-19 BLOOD ity of (ONETOUCH 00:00: GLUCOSE [place] ULTRA TEST) 00 FOUR TIMES Me dical strip DAILY [facility] blood sugar 2-0 Yes [id number] CHECK [facility] diagnostic 5-19 BLOOD ity of (ONETOUCH 00:00: GLUCOSE [place] ULTRA TEST) 00 FOUR TIMES Me dical strip DAILY [facility] blood sugar 2-0 Yes [id number] CHECK [facility] diagnostic 5-19 BLOOD ity of (ONETOUCH 00:00: GLUCOSE [place] ULTRA TEST) 00 FOUR TIMES Me dical strip DAILY [facility] blood sugar 2-0 Yes [id number] CHECK [facility] diagnostic 5-19 BLOOD ity of (ONETOUCH 00:00: GLUCOSE [place] ULTRA TEST) 00 FOUR TIMES Me dical strip DAILY [facility] blood sugar 2-0 Yes [id number] CHECK [facility] diagnostic 5-19 BLOOD ity of (ONETOUCH 00:00: GLUCOSE [place] ULTRA TEST) 00 FOUR TIMES Me dical strip DAILY [facility] blood sugar 2-0 Yes [id number] CHECK [facility] diagnostic 5-19 BLOOD ity of (ONETOUCH 00:00: GLUCOSE [place] ULTRA TEST) 00 FOUR TIMES Me dical strip DAILY [facility] blood sugar 2-0 Yes [id number] CHECK [facility] diagnostic 5-19 BLOOD ity of (ONETOUCH 00:00: GLUCOSE [place] ULTRA TEST) 00 FOUR TIMES Me dical strip DAILY [facility] blood sugar 2-0 Yes [id number] CHECK [facility] diagnostic 5-19 BLOOD ity of (ONETOUCH 00:00: GLUCOSE [place] ULTRA TEST) 00 FOUR TIMES Me dical strip DAILY [facility] blood sugar 2-0 Yes [id number] CHECK [facility] diagnostic 5-19 BLOOD ity of (ONETOUCH 00:00: GLUCOSE [place] ULTRA TEST) 00 FOUR TIMES Me dical strip DAILY [facility] blood sugar 2021-0 Yes [id number] CHECK [facility] diagnostic 5-19 BLOOD ity of (ONETOUCH 00:00: GLUCOSE [place] ULTRA TEST) 00 FOUR TIMES Me dical strip DAILY [facility] blood sugar 2-0 Yes [id number] CHECK [facility] diagnostic 5-19 BLOOD ity of (ONETOUCH 00:00: GLUCOSE [place] ULTRA TEST) 00 FOUR TIMES Me dical strip DAILY [facility] blood sugar 2-0 Yes [id number] CHECK [facility] diagnostic 5-19 BLOOD ity of (ONETOUCH 00:00: GLUCOSE [place] ULTRA TEST) 00 FOUR TIMES Me dical strip DAILY [facility] blood sugar 2-0 Yes [id number] CHECK [facility] diagnostic 5-19 BLOOD ity of (ONETOUCH 00:00: GLUCOSE [place] ULTRA TEST) 00 FOUR TIMES Me dical strip DAILY [facility] blood sugar 2-0 Yes [id number] CHECK [facility] diagnostic 5-19 BLOOD ity of (ONETOUCH 00:00: GLUCOSE [place] ULTRA TEST) 00 FOUR TIMES Me dical strip DAILY [facility] blood sugar 2-0 Yes [id number] CHECK [facility] diagnostic 5-19 BLOOD ity of (ONETOUCH 00:00: GLUCOSE [place] ULTRA TEST) 00 FOUR TIMES Me dical strip DAILY [facility] blood sugar 2-0 Yes [id number] CHECK [facility] diagnostic 5-19 BLOOD ity of (ONETOUCH 00:00: GLUCOSE [place] ULTRA TEST) 00 FOUR TIMES Me dical strip DAILY [facility] blood sugar 2-0 Yes [id number] CHECK [facility] diagnostic 5-19 BLOOD ity of (ONETOUCH 00:00: GLUCOSE [place] ULTRA TEST) 00 FOUR TIMES Me dical strip DAILY [facility] blood sugar 2022-0 Yes [id number] CHECK [facility] diagnostic 5-19 BLOOD ity of (ONETOUCH 00:00: GLUCOSE [place] ULTRA TEST) 00 FOUR TIMES Me dical strip DAILY [facility] blood sugar 2-0 Yes [id number] CHECK [facility] diagnostic 5-19 BLOOD ity of (ONETOUCH 00:00: GLUCOSE [place] ULTRA TEST) 00 FOUR TIMES Me dical strip DAILY [facility] blood sugar 2-0 Yes [id number] CHECK [facility] diagnostic 5-19 BLOOD ity of (ONETOUCH 00:00: GLUCOSE [place] ULTRA TEST) 00 FOUR TIMES Me dical strip DAILY [facility] blood sugar 2021-0 Yes [id number] CHECK [facility] diagnostic 5-19 BLOOD ity of (ONETOUCH 00:00: GLUCOSE [place] ULTRA TEST) 00 FOUR TIMES Me dical strip DAILY [facility] blood sugar 2021-0 Yes [id number] CHECK [facility] diagnostic 5-19 BLOOD ity of (ONETOUCH 00:00: GLUCOSE [place] ULTRA TEST) 00 FOUR TIMES Me dical strip DAILY [facility] blood sugar 2021-0 Yes [id number] CHECK [facility] diagnostic 5-19 BLOOD ity of (ONETOUCH 00:00: GLUCOSE [place] ULTRA TEST) 00 FOUR TIMES Me dical strip DAILY [facility] blood sugar 2-0 Yes [id number] CHECK [facility] diagnostic 5-19 BLOOD ity of (ONETOUCH 00:00: GLUCOSE [place] ULTRA TEST) 00 FOUR TIMES Me dical strip DAILY [facility] blood sugar 2-0 Yes [id number] CHECK [facility] diagnostic 5-19 BLOOD ity of (ONETOUCH 00:00: GLUCOSE [place] ULTRA TEST) 00 FOUR TIMES Me dical strip DAILY [facility] blood sugar 2-0 Yes [id number] CHECK [facility] diagnostic 5-19 BLOOD ity of (ONETOUCH 00:00: GLUCOSE [place] ULTRA TEST) 00 FOUR TIMES Me dical strip DAILY [facility] blood sugar 2-0 Yes [id number] CHECK [facility] diagnostic 5-19 BLOOD ity of (ONETOUCH 00:00: GLUCOSE [place] ULTRA TEST) 00 FOUR TIMES Me dical strip DAILY [facility] blood sugar 2-0 Yes [id number] CHECK [facility] diagnostic 5-19 BLOOD ity of (ONETOUCH 00:00: GLUCOSE [place] ULTRA TEST) 00 FOUR TIMES Me dical strip DAILY [facility] blood sugar 2-0 Yes [id number] CHECK [facility] diagnostic 5-19 BLOOD ity of (ONETOUCH 00:00: GLUCOSE [place] ULTRA TEST) 00 FOUR TIMES Me dical strip DAILY [facility] blood sugar 2-0 Yes [id number] CHECK [facility] diagnostic 5-19 BLOOD ity of (ONETOUCH 00:00: GLUCOSE [place] ULTRA TEST) 00 FOUR TIMES Me dical strip DAILY [facility] blood sugar 2-0 Yes [id number] CHECK [facility] diagnostic 5-19 BLOOD ity of (ONETOUCH 00:00: GLUCOSE [place] ULTRA TEST) 00 FOUR TIMES Me dical strip DAILY [facility] blood sugar 2-0 Yes [id number] CHECK [facility] diagnostic 5-19 BLOOD ity of (ONETOUCH 00:00: GLUCOSE [place] ULTRA TEST) 00 FOUR TIMES Me dical strip DAILY [facility] blood sugar 2-0 Yes [id number] CHECK [facility] diagnostic 5-19 BLOOD ity of (ONETOUCH 00:00: GLUCOSE [place] ULTRA TEST) 00 FOUR TIMES Me dical strip DAILY [facility] blood sugar 2-0 Yes [id number] CHECK [facility] diagnostic 5-19 BLOOD ity of (ONETOUCH 00:00: GLUCOSE [place] ULTRA TEST) 00 FOUR TIMES Me dical strip DAILY [facility] blood sugar 2-0 Yes [id number] CHECK [facility] diagnostic 5-19 BLOOD ity of (ONETOUCH 00:00: GLUCOSE [place] ULTRA TEST) 00 FOUR TIMES Me dical strip DAILY [facility] blood sugar 2-0 Yes [id number] CHECK [facility] diagnostic 5-19 BLOOD ity of (ONETOUCH 00:00: GLUCOSE [place] ULTRA TEST) 00 FOUR TIMES Me dical strip DAILY [facility] blood sugar 2-0 Yes [id number] CHECK [facility] diagnostic 5-19 BLOOD ity of (ONETOUCH 00:00: GLUCOSE [place] ULTRA TEST) 00 FOUR TIMES Me dical strip DAILY [facility] blood sugar 2-0 Yes [id number] CHECK [facility] diagnostic 5-19 BLOOD ity of (ONETOUCH 00:00: GLUCOSE [place] ULTRA TEST) 00 FOUR TIMES Me dical strip DAILY [facility] blood sugar 2-0 Yes [id number] CHECK [facility] diagnostic 5-19 BLOOD ity of (ONETOUCH 00:00: GLUCOSE [place] ULTRA TEST) 00 FOUR TIMES Me dical strip DAILY [facility] blood sugar 2-0 Yes [id number] CHECK [facility] diagnostic 5-19 BLOOD ity of (ONETOUCH 00:00: GLUCOSE [place] ULTRA TEST) 00 FOUR TIMES Me dical strip DAILY [facility] blood sugar 2022-0 2023- No [id number] CHECK [facility] diagnostic 03-22 BLOOD ity of (ONETOUCH 00:00: 00:[place]TRA TEST[place] 00 :00 FOUR TIMES Me dical strip DAILY [facility] blood sugar 2022- No [id number] CHECK [facility] diagnostic 03-22 BLOOD ity of (ONETOUCH 00:00: 00:[place]TRA TEST[place] 00 :00 FOUR TIMES Me dical strip DAILY [facility] blood sugar 2022- No [id number] CHECK [facility] diagnostic 03-22 BLOOD ity of (ONETOUCH 00:00: 00:[place] [place] 00 :00 FOUR TIMES Me dical strip DAILY [facility] blood sugar 2022- No [id number] CHECK [facility] diagnostic 03-22 BLOOD ity of (ONETOUCH 00:00: 00:[place] [facility]TRA TEST[place] 00 :00 FOUR TIMES Me dical strip DAILY [facility] FLUTICASONE Yes [id number] SHAKE [facility] PROPIONATE 5-18 LIQUID AND ity of 50 00:00: USE 2 [place] mcg/actuati 00 SPRAYS IN Med ical on nasal EACH Branch spray NOSTRIL EVERY DAY FLUTICASONE Yes [id number] SHAKE [facility] PROPIONATE 5-18 LIQUID AND ity of 50 00:00: USE 2 [place] mcg/actuati 00 SPRAYS IN Med ical on nasal EACH [facility] spray NOSTRIL EVERY DAY FLUTICASONE 0 Yes [id number] SHAKE [facility] PROPIONATE 5-18 LIQUID AND ity of 50 00:00: USE 2 [place] mcg/actuati 00 SPRAYS IN Med ical on nasal EACH [facility] spray NOSTRIL EVERY DAY FLUTICASONE 0 Yes [id number] SHAKE [facility] PROPIONATE 5-18 LIQUID AND ity of 50 00:00: USE 2 [place] mcg/actuati 00 SPRAYS IN Med ical on nasal EACH [facility] spray NOSTRIL EVERY DAY FLUTICASONE 0 Yes [id number] SHAKE [facility] PROPIONATE 5-18 LIQUID AND ity of 50 00:00: USE 2 [place] mcg/actuati 00 SPRAYS IN Med ical on nasal EACH [facility] spray NOSTRIL EVERY DAY FLUTICASONE 0 Yes [id number] SHAKE [facility] PROPIONATE 5-18 LIQUID AND ity of 50 00:00: USE 2 [place] mcg/actuati 00 SPRAYS IN Med ical on nasal EACH Branch spray NOSTRIL EVERY DAY FLUTICASONE 0 Yes [id number] SHAKE [facility] PROPIONATE 5-18 LIQUID AND ity of 50 00:00: USE 2 [place] mcg/actuati 00 SPRAYS IN Med ical on nasal EACH Branch spray NOSTRIL EVERY DAY FLUTICASONE 0 Yes [id number] SHAKE [facility] PROPIONATE 5-18 LIQUID AND ity of 50 00:00: USE 2 [place] mcg/actuati 00 SPRAYS IN Med ical on nasal EACH Branch spray NOSTRIL EVERY DAY FLUTICASONE 0 Yes [id number] SHAKE [facility] PROPIONATE 5-18 LIQUID AND ity of 50 00:00: USE 2 [place] mcg/actuati 00 SPRAYS IN Med ical on nasal EACH Branch spray NOSTRIL EVERY DAY FLUTICASONE 0 Yes [id number] SHAKE [facility] PROPIONATE 5-18 LIQUID AND ity of 50 00:00: USE 2 [place] mcg/actuati 00 SPRAYS IN Med ical on nasal EACH Branch spray NOSTRIL EVERY DAY FLUTICASONE 0 Yes [id number] SHAKE [facility] PROPIONATE 5-18 LIQUID AND ity of 50 00:00: USE 2 [place] mcg/actuati 00 SPRAYS IN Med ical on nasal EACH Branch spray NOSTRIL EVERY DAY FLUTICASONE 0 Yes [id number] SHAKE [facility] PROPIONATE 5-18 LIQUID AND ity of 50 00:00: USE 2 [place] mcg/actuati 00 SPRAYS IN Med ical on nasal EACH Branch spray NOSTRIL EVERY DAY FLUTICASONE 0 Yes [id number] SHAKE [facility] PROPIONATE 5-18 LIQUID AND ity of 50 00:00: USE 2 [place] mcg/actuati 00 SPRAYS IN Med ical on nasal EACH Branch spray NOSTRIL EVERY DAY FLUTICASONE 0 Yes [id number] SHAKE [facility] PROPIONATE 5-18 LIQUID AND ity of 50 00:00: USE 2 [place] mcg/actuati 00 SPRAYS IN Med ical on nasal EACH Branch spray NOSTRIL EVERY DAY FLUTICASONE 0 Yes [id number] SHAKE [facility] PROPIONATE 5-18 LIQUID AND ity of 50 00:00: USE 2 [place] mcg/actuati 00 SPRAYS IN Med ical on nasal EACH Branch spray NOSTRIL EVERY DAY FLUTICASONE 0 Yes [id number] SHAKE [facility] PROPIONATE 5-18 LIQUID AND ity of 50 00:00: USE 2 [place] mcg/actuati 00 SPRAYS IN Med ical on nasal EACH Branch spray NOSTRIL EVERY DAY FLUTICASONE 0 Yes [id number] SHAKE [facility] PROPIONATE 5-18 LIQUID AND ity of 50 00:00: USE 2 [place] mcg/actuati 00 SPRAYS IN Med ical on nasal EACH Branch spray NOSTRIL EVERY DAY FLUTICASONE 0 2021- No [id number] SHAKE [facility] PROPIONATE 5-18 12-29 LIQUID AND it y of 50 00:00: 00:00 USE 2 [place] mcg/actuati 00 :00 SPRAYS IN Med ical on nasal EACH Branch spray NOSTRIL EVERY DAY BUDESONIDE- 0 Yes [id number] INHALE 2 [facility] FORMOTEROL 5-11 PUFFS BY ity o f 160-4.5 00:00: MOUTH [place] mcg/actuati 00 TWICE Medical on inhaler DAILY [facility] BUDESONIDE- 0 Yes [id number] INHALE 2 [facility] FORMOTEROL 5-11 PUFFS BY ity o f 160-4.5 00:00: MOUTH [place] mcg/actuati 00 TWICE Medical on inhaler DAILY [facility] BUDESONIDE- 2021-0 Yes [id number] INHALE 2 [facility] FORMOTEROL 5-11 PUFFS BY ity o f 160-4.5 00:00: MOUTH [place] mcg/actuati 00 TWICE Medical on inhaler DAILY [facility] BUDESONIDE- 2021-0 Yes [id number] INHALE 2 [facility] FORMOTEROL 5-11 PUFFS BY ity o f 160-4.5 00:00: MOUTH [place] mcg/actuati 00 TWICE Medical on inhaler DAILY [facility] BUDESONIDE- 2021-0 Yes [id number] INHALE 2 [facility] FORMOTEROL 5-11 PUFFS BY ity o f 160-4.5 00:00: MOUTH [place] mcg/actuati 00 TWICE Medical on inhaler DAILY [facility] BUDESONIDE- 2021-0 Yes [id number] INHALE 2 [facility] FORMOTEROL 5-11 PUFFS BY ity o f 160-4.5 00:00: MOUTH [place] mcg/actuati 00 TWICE Medical on inhaler DAILY [facility] BUDESONIDE- 2021-0 Yes [id number] INHALE 2 [facility] FORMOTEROL 5-11 PUFFS BY ity o f 160-4.5 00:00: MOUTH [place] mcg/actuati 00 TWICE Medical on inhaler DAILY [facility] BUDESONIDE- 2021-0 Yes [id number] INHALE 2 [facility] FORMOTEROL 5-11 PUFFS BY ity o f 160-4.5 00:00: MOUTH [place] mcg/actuati 00 TWICE Medical on inhaler DAILY [facility] BUDESONIDE- 2021-0 Yes [id number] INHALE 2 [facility] FORMOTEROL 5-11 PUFFS BY ity o f 160-4.5 00:00: MOUTH [place] mcg/actuati 00 TWICE Medical on inhaler DAILY [facility] BUDESONIDE- 2021-0 Yes [id number] INHALE 2 [facility] FORMOTEROL 5-11 PUFFS BY ity o f 160-4.5 00:00: MOUTH [place] mcg/actuati 00 TWICE Medical on inhaler DAILY [facility] BUDESONIDE- 2021-0 Yes [id number] INHALE 2 [facility] FORMOTEROL 5-11 PUFFS BY ity o f 160-4.5 00:00: MOUTH [place] mcg/actuati 00 TWICE Medical on inhaler DAILY [facility] BUDESONIDE- 2021-0 Yes [id number] INHALE 2 [facility] FORMOTEROL 5-11 PUFFS BY ity o f 160-4.5 00:00: MOUTH [place] mcg/actuati 00 TWICE Medical on inhaler DAILY [facility] BUDESONIDE- 2021-0 Yes [id number] INHALE 2 [facility] FORMOTEROL 5-11 PUFFS BY ity o f 160-4.5 00:00: MOUTH [place] mcg/actuati 00 TWICE Medical on inhaler DAILY [facility] BUDESONIDE- 2021-0 Yes [id number] INHALE 2 [facility] FORMOTEROL 5-11 PUFFS BY ity o f 160-4.5 00:00: MOUTH [place] mcg/actuati 00 TWICE Medical on inhaler DAILY [facility] BUDESONIDE- 2021-0 Yes [id number] INHALE 2 [facility] FORMOTEROL 5-11 PUFFS BY ity o f 160-4.5 00:00: MOUTH [place] mcg/actuati 00 TWICE Medical on inhaler DAILY Branch BUDESONIDE- 2021-0 Yes [id number] INHALE 2 [facility] FORMOTEROL 5-11 PUFFS BY ity o f 160-4.5 00:00: MOUTH [place] mcg/actuati 00 TWICE Medical on inhaler DAILY [facility] BUDESONIDE- 2021-0 Yes [id number] INHALE 2 [facility] FORMOTEROL 5-11 PUFFS BY ity o f 160-4.5 00:00: MOUTH [place] mcg/actuati 00 TWICE Medical on inhaler DAILY [facility] BUDESONIDE- 2021-0 Yes [id number] INHALE 2 [facility] FORMOTEROL 5-11 PUFFS BY ity o f 160-4.5 00:00: MOUTH [place] mcg/actuati 00 TWICE Medical on inhaler DAILY Branch BUDESONIDE- 2021-0 Yes [id number] INHALE 2 [facility] FORMOTEROL 5-11 PUFFS BY ity o f 160-4.5 00:00: MOUTH [place] mcg/actuati 00 TWICE Medical on inhaler DAILY [facility] BUDESONIDE- 2021-0 Yes [id number] INHALE 2 [facility] FORMOTEROL 5-11 PUFFS BY ity o f 160-4.5 00:00: MOUTH [place] mcg/actuati 00 TWICE Medical on inhaler DAILY [facility] BUDESONIDE- 2021-0 Yes [id number] INHALE 2 [facility] FORMOTEROL 5-11 PUFFS BY ity o f 160-4.5 00:00: MOUTH [place] mcg/actuati 00 TWICE Medical on inhaler DAILY [facility] BUDESONIDE- 2021-0 Yes [id number] INHALE 2 [facility] FORMOTEROL 5-11 PUFFS BY ity o f 160-4.5 00:00: MOUTH [place] mcg/actuati 00 TWICE Medical on inhaler DAILY [facility] BUDESONIDE- 2021-0 Yes [id number] INHALE 2 [facility] FORMOTEROL 5-11 PUFFS BY ity o f 160-4.5 00:00: MOUTH [place] mcg/actuati 00 TWICE Medical on inhaler DAILY [facility] BUDESONIDE- 2021-0 Yes [id number] INHALE 2 [facility] FORMOTEROL 5-11 PUFFS BY ity o f 160-4.5 00:00: MOUTH [place] mcg/actuati 00 TWICE Medical on inhaler DAILY [facility] BUDESONIDE- 2021-0 Yes [id number] INHALE 2 [facility] FORMOTEROL 5-11 PUFFS BY ity o f 160-4.5 00:00: MOUTH [place] mcg/actuati 00 TWICE Medical on inhaler DAILY [facility] BUDESONIDE- 2021-0 Yes [id number] INHALE 2 [facility] FORMOTEROL 5-11 PUFFS BY ity o f 160-4.5 00:00: MOUTH [place] mcg/actuati 00 TWICE Medical on inhaler DAILY [facility] BUDESONIDE- 2021-0 Yes [id number] INHALE 2 [facility] FORMOTEROL 5-11 PUFFS BY ity o f 160-4.5 00:00: MOUTH [place] mcg/actuati 00 TWICE Medical on inhaler DAILY [facility] BUDESONIDE- 2021-0 Yes [id number] INHALE 2 [facility] FORMOTEROL 5-11 PUFFS BY ity o f 160-4.5 00:00: MOUTH [place] mcg/actuati 00 TWICE Medical on inhaler DAILY [facility] BUDESONIDE- 2021-0 Yes [id number] INHALE 2 [facility] FORMOTEROL 5-11 PUFFS BY ity o f 160-4.5 00:00: MOUTH [place] mcg/actuati 00 TWICE Medical on inhaler DAILY Branch BUDESONIDE- 2021-0 Yes [id number] INHALE 2 [facility] FORMOTEROL 5-11 PUFFS BY ity o f 160-4.5 00:00: MOUTH [place] mcg/actuati 00 TWICE Medical on inhaler DAILY [facility] BUDESONIDE- 2021-0 Yes [id number] INHALE 2 [facility] FORMOTEROL 5-11 PUFFS BY ity o f 160-4.5 00:00: MOUTH [place] mcg/actuati 00 TWICE Medical on inhaler DAILY Branch BUDESONIDE- 2021-0 Yes [id number] INHALE 2 [facility] FORMOTEROL 5-11 PUFFS BY ity o f 160-4.5 00:00: MOUTH [place] mcg/actuati 00 TWICE Medical on inhaler DAILY [facility] BUDESONIDE- 2021-0 Yes [id number] INHALE 2 [facility] FORMOTEROL 5-11 PUFFS BY ity o f 160-4.5 00:00: MOUTH [place] mcg/actuati 00 TWICE Medical on inhaler DAILY Branch BUDESONIDE- 2021-0 Yes [id number] INHALE 2 [facility] FORMOTEROL 5-11 PUFFS BY ity o f 160-4.5 00:00: MOUTH [place] mcg/actuati 00 TWICE Medical on inhaler DAILY Branch BUDESONIDE- 2021-0 Yes [id number] INHALE 2 [facility] FORMOTEROL 5-11 PUFFS BY ity o f 160-4.5 00:00: MOUTH [place] mcg/actuati 00 TWICE Medical on inhaler DAILY Branch BUDESONIDE- 2021-0 Yes [id number] INHALE 2 [facility] FORMOTEROL 5-11 PUFFS BY ity o f 160-4.5 00:00: MOUTH [place] mcg/actuati 00 TWICE Medical on inhaler DAILY Branch BUDESONIDE- 2021-0 Yes [id number] INHALE 2 [facility] FORMOTEROL 5-11 PUFFS BY ity o f 160-4.5 00:00: MOUTH [place] mcg/actuati 00 TWICE Medical on inhaler DAILY Branch BUDESONIDE- 2021-0 Yes [id number] INHALE 2 [facility] FORMOTEROL 5-11 PUFFS BY ity o f 160-4.5 00:00: MOUTH [place] mcg/actuati 00 TWICE Medical on inhaler DAILY Branch BUDESONIDE- 2021-0 Yes [id number] INHALE 2 [facility] FORMOTEROL 5-11 PUFFS BY ity o f 160-4.5 00:00: MOUTH [place] mcg/actuati 00 TWICE Medical on inhaler DAILY Branch BUDESONIDE- 2021-0 Yes [id number] INHALE 2 [facility] FORMOTEROL 5-11 PUFFS BY ity o f 160-4.5 00:00: MOUTH [place] mcg/actuati 00 TWICE Medical on inhaler DAILY Branch BUDESONIDE- 2021-0 Yes [id number] INHALE 2 [facility] FORMOTEROL 5-11 PUFFS BY ity o f 160-4.5 00:00: MOUTH [place] mcg/actuati 00 TWICE Medical on inhaler DAILY Branch BUDESONIDE- 2021-0 Yes [id number] INHALE 2 [facility] FORMOTEROL 5-11 PUFFS BY ity o f 160-4.5 00:00: MOUTH [place] mcg/actuati 00 TWICE Medical on inhaler DAILY Branch BUDESONIDE- 2021-0 Yes [id number] INHALE 2 [facility] FORMOTEROL 5-11 PUFFS BY ity o f 160-4.5 00:00: MOUTH [place] mcg/actuati 00 TWICE Medical on inhaler DAILY Branch BUDESONIDE- 2021-0 Yes [id number] INHALE 2 [facility] FORMOTEROL 5-11 PUFFS BY ity o f 160-4.5 00:00: MOUTH [place] mcg/actuati 00 TWICE Medical on inhaler DAILY Branch BUDESONIDE- 2021-0 Yes [id number] INHALE 2 [facility] FORMOTEROL 5-11 PUFFS BY ity o f 160-4.5 00:00: MOUTH [place] mcg/actuati 00 TWICE Medical on inhaler DAILY Branch BUDESONIDE- 2021-0 Yes [id number] INHALE 2 [facility] FORMOTEROL 5-11 PUFFS BY ity o f 160-4.5 00:00: MOUTH [place] mcg/actuati 00 TWICE Medical on inhaler DAILY Branch BUDESONIDE- 2021-0 Yes [id number] INHALE 2 [facility] FORMOTEROL 5-11 PUFFS BY ity o f 160-4.5 00:00: MOUTH [place] mcg/actuati 00 TWICE Medical on inhaler DAILY Branch BUDESONIDE- 2021-0 Yes [id number] INHALE 2 [facility] FORMOTEROL 5-11 PUFFS BY ity o f 160-4.5 00:00: MOUTH [place] mcg/actuati 00 TWICE Medical on inhaler DAILY Branch BUDESONIDE- 2021-0 Yes [id number] INHALE 2 [facility] FORMOTEROL 5-11 PUFFS BY ity o f 160-4.5 00:00: MOUTH [place] mcg/actuati 00 TWICE Medical on inhaler DAILY Branch BUDESONIDE- 2021-0 Yes [id number] INHALE 2 [facility] FORMOTEROL 5-11 PUFFS BY ity o f 160-4.5 00:00: MOUTH [place] mcg/actuati 00 TWICE Medical on inhaler DAILY Branch BUDESONIDE- 2021-0 Yes [id number] INHALE 2 [facility] FORMOTEROL 5-11 PUFFS BY ity o f 160-4.5 00:00: MOUTH [place] mcg/actuati 00 TWICE Medical on inhaler DAILY Branch BUDESONIDE- 2021-0 Yes [id number] INHALE 2 [facility] FORMOTEROL 5-11 PUFFS BY ity o f 160-4.5 00:00: MOUTH [place] mcg/actuati 00 TWICE Medical on inhaler DAILY Branch BUDESONIDE- 2021-0 Yes [id number] INHALE 2 [facility] FORMOTEROL 5-11 PUFFS BY ity o f 160-4.5 00:00: MOUTH [place] mcg/actuati 00 TWICE Medical on inhaler DAILY Branch BUDESONIDE- 2021-0 Yes [id number] INHALE 2 [facility] FORMOTEROL 5-11 PUFFS BY ity o f 160-4.5 00:00: MOUTH [place] mcg/actuati 00 TWICE Medical on inhaler DAILY Branch BUDESONIDE- 2021-0 Yes [id number] INHALE 2 [facility] FORMOTEROL 5-11 PUFFS BY ity o f 160-4.5 00:00: MOUTH [place] mcg/actuati 00 TWICE Medical on inhaler DAILY Branch BUDESONIDE- 2021-0 Yes [id number] INHALE 2 [facility] FORMOTEROL 5-11 PUFFS BY ity o f 160-4.5 00:00: MOUTH [place] mcg/actuati 00 TWICE Medical on inhaler DAILY Branch BUDESONIDE- 2021-0 Yes [id number] INHALE 2 [facility] FORMOTEROL 5-11 PUFFS BY ity o f 160-4.5 00:00: MOUTH [place] mcg/actuati 00 TWICE Medical on inhaler DAILY Branch BUDESONIDE- 2021-0 Yes [id number] INHALE 2 [facility] FORMOTEROL 5-11 PUFFS BY ity o f 160-4.5 00:00: MOUTH [place] mcg/actuati 00 TWICE Medical on inhaler DAILY Branch BUDESONIDE- 2021-0 Yes [id number] INHALE 2 [facility] FORMOTEROL 5-11 PUFFS BY ity o f 160-4.5 00:00: MOUTH [place] mcg/actuati 00 TWICE Medical on inhaler DAILY Branch BUDESONIDE- 2021-0 Yes [id number] INHALE 2 [facility] FORMOTEROL 5-11 PUFFS BY ity o f 160-4.5 00:00: MOUTH [place] mcg/actuati 00 TWICE Medical on inhaler DAILY Branch BUDESONIDE- 2021-0 Yes [id number] INHALE 2 [facility] FORMOTEROL 5-11 PUFFS BY ity o f 160-4.5 00:00: MOUTH [place] mcg/actuati 00 TWICE Medical on inhaler DAILY [facility] BUDESONIDE- 2021-0 Yes [id number] INHALE 2 [facility] FORMOTEROL 5-11 PUFFS BY ity o f 160-4.5 00:00: MOUTH [place] mcg/actuati 00 TWICE Medical on inhaler DAILY [facility] BUDESONIDE- 2021-0 Yes [id number] INHALE 2 [facility] FORMOTEROL 5-11 PUFFS BY ity o f 160-4.5 00:00: MOUTH [place] mcg/actuati 00 TWICE Medical on inhaler DAILY [facility] BUDESONIDE- 2021-0 Yes [id number] INHALE 2 [facility] FORMOTEROL 5-11 PUFFS BY ity o f 160-4.5 00:00: MOUTH [place] mcg/actuati 00 TWICE Medical on inhaler DAILY [facility] BUDESONIDE- 2021-0 Yes [id number] INHALE 2 [facility] FORMOTEROL 5-11 PUFFS BY ity o f 160-4.5 00:00: MOUTH [place] mcg/actuati 00 TWICE Medical on inhaler DAILY [facility] BUDESONIDE- 2021-0 Yes [id number] INHALE 2 [facility] FORMOTEROL 5-11 PUFFS BY ity o f 160-4.5 00:00: MOUTH [place] mcg/actuati 00 TWICE Medical on inhaler DAILY [facility] BUDESONIDE- 2021-0 Yes [id number] INHALE 2 [facility] FORMOTEROL 5-11 PUFFS BY ity o f 160-4.5 00:00: MOUTH [place] mcg/actuati 00 TWICE Medical on inhaler DAILY [facility] BUDESONIDE- 2021-0 Yes [id number] INHALE 2 [facility] FORMOTEROL 5-11 PUFFS BY ity o f 160-4.5 00:00: MOUTH [place] mcg/actuati 00 TWICE Medical on inhaler DAILY Branch BUDESONIDE- 2021-0 Yes [id number] INHALE 2 [facility] FORMOTEROL 5-11 PUFFS BY ity o f 160-4.5 00:00: MOUTH [place] mcg/actuati 00 TWICE Medical on inhaler DAILY Branch BUDESONIDE- 2021-0 Yes [id number] INHALE 2 [facility] FORMOTEROL 5-11 PUFFS BY ity o f 160-4.5 00:00: MOUTH [place] mcg/actuati 00 TWICE Medical on inhaler DAILY Branch BUDESONIDE- 2021-0 Yes [id number] INHALE 2 [facility] FORMOTEROL 5-11 PUFFS BY ity o f 160-4.5 00:00: MOUTH [place] mcg/actuati 00 TWICE Medical on inhaler DAILY Branch BUDESONIDE- 2021-0 Yes [id number] INHALE 2 [facility] FORMOTEROL 5-11 PUFFS BY ity o f 160-4.5 00:00: MOUTH [place] mcg/actuati 00 TWICE Medical on inhaler DAILY Branch BUDESONIDE- 2021-0 Yes [id number] INHALE 2 [facility] FORMOTEROL 5-11 PUFFS BY ity o f 160-4.5 00:00: MOUTH [place] mcg/actuati 00 TWICE Medical on inhaler DAILY Branch BUDESONIDE- 2021-0 Yes [id number] INHALE 2 [facility] FORMOTEROL 5-11 PUFFS BY ity o f 160-4.5 00:00: MOUTH [place] mcg/actuati 00 TWICE Medical on inhaler DAILY Branch BUDESONIDE- 2021-0 Yes [id number] INHALE 2 [facility] FORMOTEROL 5-11 PUFFS BY ity o f 160-4.5 00:00: MOUTH [place] mcg/actuati 00 TWICE Medical on inhaler DAILY Branch BUDESONIDE- 2021-0 Yes [id number] INHALE 2 [facility] FORMOTEROL 5-11 PUFFS BY ity o f 160-4.5 00:00: MOUTH [place] mcg/actuati 00 TWICE Medical on inhaler DAILY Branch BUDESONIDE- 2021-0 Yes [id number] INHALE 2 [facility] FORMOTEROL 5-11 PUFFS BY ity o f 160-4.5 00:00: MOUTH [place] mcg/actuati 00 TWICE Medical on inhaler DAILY Branch BUDESONIDE- 2021-0 Yes [id number] INHALE 2 [facility] FORMOTEROL 5-11 PUFFS BY ity o f 160-4.5 00:00: MOUTH [place] mcg/actuati 00 TWICE Medical on inhaler DAILY Branch BUDESONIDE- 2021-0 Yes [id number] INHALE 2 [facility] FORMOTEROL 5-11 PUFFS BY ity o f 160-4.5 00:00: MOUTH [place] mcg/actuati 00 TWICE Medical on inhaler DAILY Branch BUDESONIDE- 2021-0 Yes [id number] INHALE 2 [facility] FORMOTEROL 5-11 PUFFS BY ity o f 160-4.5 00:00: MOUTH [place] mcg/actuati 00 TWICE Medical on inhaler DAILY Branch BUDESONIDE- 2021-0 Yes [id number] INHALE 2 [facility] FORMOTEROL 5-11 PUFFS BY ity o f 160-4.5 00:00: MOUTH [place] mcg/actuati 00 TWICE Medical on inhaler DAILY Branch BUDESONIDE- 2022-0 Yes [id number] INHALE 2 [facility] FORMOTEROL 5-11 PUFFS BY ity o f 160-4.5 00:00: MOUTH [place] mcg/actuati 00 TWICE Medical on inhaler DAILY Branch BUDESONIDE- 2021-0 Yes [id number] INHALE 2 [facility] FORMOTEROL 5-11 PUFFS BY ity o f 160-4.5 00:00: MOUTH [place] mcg/actuati 00 TWICE Medical on inhaler DAILY Branch BUDESONIDE- 2021-0 Yes [id number] INHALE 2 [facility] FORMOTEROL 5-11 PUFFS BY ity o f 160-4.5 00:00: MOUTH [place] mcg/actuati 00 TWICE Medical on inhaler DAILY Branch BUDESONIDE- 2021-0 Yes [id number] INHALE 2 [facility] FORMOTEROL 5-11 PUFFS BY ity o f 160-4.5 00:00: MOUTH [place] mcg/actuati 00 TWICE Medical on inhaler DAILY Branch BUDESONIDE- 2021-0 Yes [id number] INHALE 2 [facility] FORMOTEROL 5-11 PUFFS BY ity o f 160-4.5 00:00: MOUTH [place] mcg/actuati 00 TWICE Medical on inhaler DAILY Branch BUDESONIDE- 2021-0 Yes [id number] INHALE 2 [facility] FORMOTEROL 5-11 PUFFS BY ity o f 160-4.5 00:00: MOUTH [place] mcg/actuati 00 TWICE Medical on inhaler DAILY Branch BUDESONIDE- 2021-0 Yes [id number] INHALE 2 [facility] FORMOTEROL 5-11 PUFFS BY ity o f 160-4.5 00:00: MOUTH [place] mcg/actuati 00 TWICE Medical on inhaler DAILY Branch BUDESONIDE- 2021-0 Yes [id number] INHALE 2 [facility] FORMOTEROL 5-11 PUFFS BY ity o f 160-4.5 00:00: MOUTH [place] mcg/actuati 00 TWICE Medical on inhaler DAILY Branch BUDESONIDE- 2021-0 Yes [id number] INHALE 2 [facility] FORMOTEROL 5-11 PUFFS BY ity o f 160-4.5 00:00: MOUTH [place] mcg/actuati 00 TWICE Medical on inhaler DAILY Branch BUDESONIDE- 2021-0 Yes [id number] INHALE 2 [facility] FORMOTEROL 5-11 PUFFS BY ity o f 160-4.5 00:00: MOUTH [place] mcg/actuati 00 TWICE Medical on inhaler DAILY Branch BUDESONIDE- 2021-0 Yes [id number] INHALE 2 [facility] FORMOTEROL 5-11 PUFFS BY ity o f 160-4.5 00:00: MOUTH [place] mcg/actuati 00 TWICE Medical on inhaler DAILY Branch BUDESONIDE- 2021-0 Yes [id number] INHALE 2 [facility] FORMOTEROL 5-11 PUFFS BY ity o f 160-4.5 00:00: MOUTH [place] mcg/actuati 00 TWICE Medical on inhaler DAILY Branch BUDESONIDE- 2021-0 Yes [id number] INHALE 2 [facility] FORMOTEROL 5-11 PUFFS BY ity o f 160-4.5 00:00: MOUTH [place] mcg/actuati 00 TWICE Medical on inhaler DAILY Branch BUDESONIDE- 2021-0 Yes [id number] INHALE 2 [facility] FORMOTEROL 5-11 PUFFS BY ity o f 160-4.5 00:00: MOUTH [place] mcg/actuati 00 TWICE Medical on inhaler DAILY Branch BUDESONIDE- 2021-0 Yes [id number] INHALE 2 [facility] FORMOTEROL 5-11 PUFFS BY ity o f 160-4.5 00:00: MOUTH [place] mcg/actuati 00 TWICE Medical on inhaler DAILY Branch BUDESONIDE- 2021-0 Yes [id number] INHALE 2 [facility] FORMOTEROL 5-11 PUFFS BY ity o f 160-4.5 00:00: MOUTH [place] mcg/actuati 00 TWICE Medical on inhaler DAILY Branch BUDESONIDE- 2021-0 Yes [id number] INHALE 2 [facility] FORMOTEROL 5-11 PUFFS BY ity o f 160-4.5 00:00: MOUTH [place] mcg/actuati 00 TWICE Medical on inhaler DAILY Branch BUDESONIDE- 2021-0 Yes [id number] INHALE 2 [facility] FORMOTEROL 5-11 PUFFS BY ity o f 160-4.5 00:00: MOUTH [place] mcg/actuati 00 TWICE Medical on inhaler DAILY Branch BUDESONIDE- 2021-0 Yes [id number] INHALE 2 [facility] FORMOTEROL 5-11 PUFFS BY ity o f 160-4.5 00:00: MOUTH [place] mcg/actuati 00 TWICE Medical on inhaler DAILY Branch BUDESONIDE- 0 Yes [id number] INHALE 2 [facility] FORMOTEROL 5-11 PUFFS BY ity o f 160-4.5 00:00: MOUTH [place] mcg/actuati 00 TWICE Medical on inhaler DAILY Branch BUDESONIDE- 2021-0 Yes [id number] INHALE 2 [facility] FORMOTEROL 5-11 PUFFS BY ity o f 160-4.5 00:00: MOUTH [place] mcg/actuati 00 TWICE Medical on inhaler DAILY Branch BUDESONIDE- 2021-0 Yes [id number] INHALE 2 [facility] FORMOTEROL 5-11 PUFFS BY ity o f 160-4.5 00:00: MOUTH [place] mcg/actuati 00 TWICE Medical on inhaler DAILY Branch DULoxetine Yes [id number] 60mg Take 1 U nivers 60 mg 2-09 capsule by ity of capsule 00:00: mouth 2 [place] 00 (two) Medical times Branch daily. DULoxetine Yes [id number] 60mg Take 1 [facility] nivers 60 mg 2-09 capsule by ity of capsule 00:00: mouth 2 [place] 00 (two) Medical times Branch daily. DULoxetine Yes [id number] 60mg Take 1 [facility] nivers 60 mg 2-09 capsule by ity of capsule 00:00: mouth 2 [place] 00 (two) Medical times Branch daily. DULoxetine 0 Yes [id number] 60mg Take 1 U nivers 60 mg 2-09 capsule by ity of capsule 00:00: mouth 2 [place] 00 (two) Medical times Branch daily. DULoxetine 0 Yes [id number] 60mg Take 1 [facility] nivers 60 mg 2-09 capsule by ity of capsule 00:00: mouth 2 [place] 00 (two) Medical times Branch daily. DULoxetine 2021-2021- No [id number] 60mg Take 1 [facility] 60 mg 12-13 [id number] capsule by ity o f capsule 00:00: 00:00 mouth 2 [place] 00 :00 (two) Medical times Branch daily. DULoxetine 2021-0 2021- No [id number] 60mg Take 1 [facility] 60 mg 12-13 [id number] capsule by ity o f capsule 00:00: 00:00 mouth 2 [place] 00 :00 (two) Medical times Branch daily. carvediloL 0 Yes [id number] 25mg Take 1 [facility] nivers 25 mg 2-04 tablet by ity of tablet 00:00: mouth (two) Medical times Branch daily. hydrALAZINE 2021-0 Yes [id number] 50mg Take 1 [facility] 50 mg 2-04 tablet by ity of tablet 00:00: mouth 2 (two) Medical times Branch daily. metFORMIN 2021-0 Yes [id number] 500mg Take 1 [facility] 500 mg 2-04 tablet by ity of tablet 00:00: mouth (two) Medical times Branch daily with meals. diclofenac- 2021-0 Yes [id number] 1{tbl} Take 1 [facility] misoprostoL 2-04 9107 tablet by ity of 50-200 00:00: mouth 2 [place] mg-mcg per 00 (two) Medical tablet times Branch daily. carvediloL 2021-0 Yes [id number] 25mg Take 1 U nivers 25 mg 2-04 tablet by ity of tablet 00:00: mouth (two) Medical times Branch daily. hydrALAZINE 2021-0 Yes [id number] 50mg Take 1 [facility] 50 mg 2-04 tablet by ity of tablet 00:00: mouth (two) Medical times Branch daily. metFORMIN 2021-0 Yes [id number] 500mg Take 1 [facility] 500 mg 2-04 tablet by ity of tablet 00:00: mouth (two) Medical times Branch daily with meals. diclofenac- 2021-0 Yes [id number] 1{tbl} Take 1 [facility] misoprostoL 2-04 9107 tablet by ity of 50-200 00:00: mouth 2 [place] mg-mcg per 00 (two) Medical tablet times Branch daily. carvediloL 2021-0 Yes [id number] 25mg Take 1 [facility] nivers 25 mg 2-04 tablet by ity of tablet 00:00: mouth (two) Medical times Branch daily. hydrALAZINE 2-0 Yes [id number] 50mg Take 1 [facility] 50 mg 2-04 tablet by ity of tablet 00:00: mouth 2 (two) Medical times Branch daily. metFORMIN 2022-0 Yes [id number] 500mg Take 1 [facility] 500 mg 2-04 tablet by ity of tablet 00:00: mouth (two) Medical times Branch daily with meals. diclofenac- 2021-0 Yes [id number] 1{tbl} Take 1 [facility] misoprostoL 2-04 9107 tablet by ity of 50-200 00:00: mouth 2 [place] mg-mcg per 00 (two) Medical tablet times Branch daily. carvediloL 2021-0 Yes [id number] 25mg Take 1 [facility] nivers 25 mg 2-04 tablet by ity of tablet 00:00: mouth 2 (two) Medical times Branch daily. hydrALAZINE 2021-0 Yes [id number] 50mg Take 1 [facility] 50 mg 2-04 tablet by ity of tablet 00:00: mouth 2 (two) Medical times Branch daily. metFORMIN 2021-0 Yes [id number] 500mg Take 1 [facility] 500 mg 2-04 tablet by ity of tablet 00:00: mouth 2 (two) Medical times Branch daily with meals. diclofenac- 2021-0 Yes [id number] 1{tbl} Take 1 [facility] misoprostoL 2-04 9107 tablet by ity of 50-200 00:00: mouth 2 [place] mg-mcg per 00 (two) Medical tablet times Branch daily. carvediloL 2021-0 Yes [id number] 25mg Take 1 [facility] nivers 25 mg 2-04 tablet by ity of tablet 00:00: mouth 2 (two) Medical times Branch daily. hydrALAZINE 2021-0 Yes [id number] 50mg Take 1 [facility] 50 mg 2-04 tablet by ity of tablet 00:00: mouth 2 (two) Medical times Branch daily. metFORMIN 2021-0 Yes [id number] 500mg Take 1 [facility] 500 mg 2-04 tablet by ity of tablet 00:00: mouth 2 (two) Medical times Branch daily with meals. diclofenac- 2021-0 Yes [id number] 1{tbl} Take 1 [facility] misoprostoL 2-04 9107 tablet by ity of 50-200 00:00: mouth 2 [place] mg-mcg per 00 (two) Medical tablet times Branch daily. diclofenac- 2021-0 Yes [id number] 1{tbl} Take 1 [facility] misoprostoL 2-04 9107 tablet by ity of 50-200 00:00: mouth 2 [place] mg-mcg per 00 (two) Medical tablet times Branch daily. diclofenac- 2021-0 Yes [id number] 1{tbl} Take 1 [facility] misoprostoL 2-04 9107 tablet by ity of 50-200 00:00: mouth 2 [place] mg-mcg per 00 (two) Medical tablet times Branch daily. diclofenac- 2021-0 Yes [id number] 1{tbl} Take 1 [facility] misoprostoL 2-04 9107 tablet by ity of 50-200 00:00: mouth 2 [place] mg-mcg per 00 (two) Medical tablet times Branch daily. diclofenac- 2021-0 Yes [id number] 1{tbl} Take 1 [facility] misoprostoL 2-04 9107 tablet by ity of 50-200 00:00: mouth 2 [place] mg-mcg per 00 (two) Medical tablet times Branch daily. diclofenac- 0 Yes [id number] 1{tbl} Take 1 [facility] misoprostoL 2-04 9107 tablet by ity of 50-200 00:00: mouth 2 [place] mg-mcg per 00 (two) Medical tablet times Branch daily. diclofenac- 2021-0 Yes [id number] 1{tbl} Take 1 [facility] misoprostoL 2-04 9107 tablet by ity of 50-200 00:00: mouth 2 [place] mg-mcg per 00 (two) Medical tablet times Branch daily. diclofenac- 2021-0 Yes [id number] 1{tbl} Take 1 [facility] misoprostoL 2-04 9107 tablet by ity of 50-200 00:00: mouth 2 [place] mg-mcg per 00 (two) Medical tablet times Branch daily. diclofenac- 2021-0 Yes [id number] 1{tbl} Take 1 [facility] misoprostoL 2-04 9107 tablet by ity of 50-200 00:00: mouth 2 [place] mg-mcg per 00 (two) Medical tablet times Branch daily. diclofenac- 2021-0 Yes [id number] 1{tbl} Take 1 [facility] misoprostoL 2-04 9107 tablet by ity of 50-200 00:00: mouth 2 [place] mg-mcg per 00 (two) Medical tablet times Branch daily. diclofenac- 2021-0 Yes [id number] 1{tbl} Take 1 [facility] misoprostoL 2-04 9107 tablet by ity of 50-200 00:00: mouth 2 [place] mg-mcg per 00 (two) Medical tablet times Branch daily. diclofenac- 2022-0 Yes [id number] 1{tbl} Take 1 [facility] misoprostoL 2-04 9107 tablet by ity of 50-200 00:00: mouth 2 [place] mg-mcg per 00 (two) Medical tablet times Branch daily. diclofenac- Yes [id number] 1{tbl} Take 1 [facility] misoprostoL 2-04 9107 tablet by ity of 50-200 00:00: mouth 2 [place] mg-mcg per 00 (two) Medical tablet times Branch daily. diclofenac- Yes [id number] 1{tbl} Take 1 [facility] misoprostoL 2-04 9107 tablet by ity of 50-200 00:00: mouth 2 [place] mg-mcg per 00 (two) Medical tablet times Branch daily. diclofenac- Yes [id number] 1{tbl} Take 1 [facility] misoprostoL 2-04 9107 tablet by ity of 50-200 00:00: mouth 2 [place] mg-mcg per 00 (two) Medical tablet times Branch daily. diclofenac- Yes [id number] 1{tbl} Take 1 [facility] misoprostoL 2-04 9107 tablet by ity of 50-200 00:00: mouth 2 [place] mg-mcg per 00 (two) Medical tablet times Branch daily. diclofenac- 2022- No [id number] 1{tbl} Take 1 [facility] misoprostoL 2-04 -05 9107 tablet by it y of 50-200 00:00: 00:00 mouth 2 [place] mg-mcg per 00 :00 (two) Medical tablet times Branch daily. diclofenac- 2022- No [id number] 1{tbl} Take 1 [facility] misoprostoL 2-04 -05 9107 tablet by it y of 50-200 00:00: 00:00 mouth 2 [place] mg-mcg per 00 :00 (two) Medical tablet times Branch daily. diclofenac- 2022- No [id number] 1{tbl} Take 1 [facility] misoprostoL 2-04 -05 9107 tablet by it y of 50-200 00:00: 00:00 mouth 2 [place] mg-mcg per 00 :00 (two) Medical tablet times Branch daily. diclofenac- 2022- No [id number] 1{tbl} Take 1 [facility] misoprostoL 2-04 - 9107 tablet by it y of 50-200 00:00: 00:00 mouth 2 [place] mg-mcg per 00 :00 (two) Medical tablet times Branch daily. carvediloL 2021- No [id number] 25mg Take 1 [facility] 25 mg 2-04 10-05 tablet by ity of tablet 00:00: 00:00 mouth 2 [place] 00 :00 (two) Medical times Branch daily. hydrALAZINE 2021- No [id number] 50mg Take 1 [facility] 50 mg 2-04 10-05 tablet by ity of tablet 00:00: 00:00 mouth 2 [place] 00 :00 (two) Medical times Branch daily. metFORMIN 2021- No [id number] 500mg Take 1 [facility] 500 mg 2-04 10-05 tablet by ity of tablet 00:00: 00:00 mouth 2 [place] 00 :00 (two) Medical times Branch daily with meals. carvediloL 2021- No [id number] 25mg Take 1 [facility] 25 mg 2-04 10-05 tablet by ity of tablet 00:00: 00:00 mouth 2 [place] 00 :00 (two) Medical times Branch daily. hydrALAZINE 2021- No [id number] 50mg Take 1 [facility] 50 mg 2-04 10-05 tablet by ity of tablet 00:00: 00:00 mouth 2 [place] 00 :00 (two) Medical times Branch daily. metFORMIN 2021- No [id number] 500mg Take 1 [facility] 500 mg 2-04 10-05 tablet by ity of tablet 00:00: 00:00 mouth 2 [place] 00 :00 (two) Medical times Branch daily with meals. GLIMEPIRIDE Yes [id number] TAKE 1 [facility] 2 mg tablet 2-03 TABLET BY ity of 00:00: MOUTH [place] 00 TWICE Medical DAILY Branch GLIMEPIRIDE 2021-0 Yes [id number] TAKE 1 [facility] 2 mg tablet 2-03 TABLET BY ity of 00:00: MOUTH [place] 00 TWICE Medical DAILY Branch GLIMEPIRIDE 2021-0 Yes [id number] TAKE 1 [facility] 2 mg tablet 2-03 TABLET BY ity of 00:00: MOUTH [place] 00 TWICE Medical DAILY Branch GLIMEPIRIDE Yes [id number] TAKE 1 [facility] 2 mg tablet 2-03 TABLET BY ity of 00:00: MOUTH [place] 00 TWICE Medical DAILY Branch GLIMEPIRIDE Yes [id number] TAKE 1 [facility] 2 mg tablet 2-03 TABLET BY ity of 00:00: MOUTH [place] 00 TWICE Medical DAILY Branch GLIMEPIRIDE 0 2021- No [id number] TAKE 1 [facility] 2 mg tablet 2-03 10-05 TABLET BY it y of 00:00: 00:00 MOUTH [place] 00 :00 TWICE Medical DAILY Branch GLIMEPIRIDE 0 2021- No [id number] TAKE 1 [facility] 2 mg tablet 2-03 10-05 TABLET BY it y of 00:00: 00:00 MOUTH [place] 00 :00 TWICE Medical DAILY Branch POTASSIUM 2020-11 Yes [id number] 10meq TAKE 1 [facility] nivers CHLORIDE 10 2-08 TABLET BY ity of mEq CR 00:00: MOUTH [place] tablet 00 EVERY Medical SATURDAY, Branch SATURDAY, AND SATURDAY POTASSIUM 2020-11 Yes [id number] 10meq TAKE 1 U nivers CHLORIDE 10 2-08 TABLET BY ity of mEq CR 00:00: MOUTH [place] tablet 00 EVERY Medical SATURDAY, Branch SATURDAY, AND SATURDAY POTASSIUM 2020-11 Yes [id number] 10meq TAKE 1 [facility] nivers CHLORIDE 10 2-08 TABLET BY ity of mEq CR 00:00: MOUTH [place] tablet 00 EVERY Medical SATURDAY, Branch SATURDAY, AND SATURDAY POTASSIUM 2020-11 Yes [id number] 10meq TAKE 1 [facility] nivers CHLORIDE 10 2-08 TABLET BY ity of mEq CR 00:00: MOUTH [place] tablet 00 EVERY Medical SATURDAY, Branch SATURDAY, AND SATURDAY POTASSIUM 2020-11 Yes [id number] 10meq TAKE 1 U nivers CHLORIDE 10 2-08 TABLET BY ity of mEq CR 00:00: MOUTH [place] tablet 00 EVERY Medical SATURDAY, Branch SATURDAY, AND SATURDAY POTASSIUM 2020-11- No [id number] 10meq TAKE 1 [facility] CHLORIDE 10 2-08 10-05 TABLET BY it y of mEq CR 00:00: 00:00 MOUTH [place] tablet 00 :00 EVERY Medical SATURDAY, Branch SATURDAY, AND SATURDAY POTASSIUM 2020-11- No [id number] 10meq TAKE 1 [facility] CHLORIDE 10 2-08 10-05 TABLET BY it y of mEq CR 00:00: 00:00 MOUTH [place] tablet 00 :00 EVERY Medical SATURDAY, Branch SATURDAY, AND SATURDAY Miscellaneo 2020-11 Yes [id number] J40: Un [employer] [facility] 0-21 Bro[place]itis ity of Supply Kit 00:00: - Dispense [place] 00 # 1 [facility] Praful [facility] Respironic s (okay for alternativ e brand) for nebulizer treatment ipratropium 2020-11 Yes [id number] .5mg Inhale 2.5 [facility] 0.02 % 0-21 mL every 4 ity of nebulizer 00:00: (four) [place] solution 00 hours as Medical needed for Branch Wheezing or Shortness of Breath. albuterol 2020-11 Yes [id number] 2.5mg Inhale 3 [facility] 2.5 mg /3 0-21 mL every 4 ity of mL (0.083 00:00: (four) [place] %) 00 hours as Medical nebulizer needed for Bran ch solution Wheezing or Shortness of Breath. Miscellaneo 2020-11 Yes [id number] J40: Un [employer] 0-21 Brochitis ity of Supply Kit 00:00: - Dispense [place] 00 # 1 [facility] Praful [facility] Respironic s (okay for alternativ e brand) for nebulizer treatment ipratropium 2020-11 Yes [id number] .5mg Inhale 2.5 [facility] 0.02 % 0-21 mL every 4 ity of nebulizer 00:00: (four) [place] solution 00 hours as Medical needed for Branch Wheezing or Shortness of Breath. albuterol 2020-11 Yes [id number] 2.5mg Inhale 3 [facility] 2.5 mg /3 0-21 mL every 4 ity of mL (0.083 00:00: (four) [place] %) 00 hours as Medical nebulizer needed for Bran ch solution Wheezing or Shortness of Breath. Miscellaneo 2020-11 Yes [id number] J40: Un [employer] 0-21 Brochitis ity of Supply Kit 00:00: - Dispense [place] 00 # 1 [facility] Praful [facility] Respironic s (okay for alternativ e brand) for nebulizer treatment ipratropium 2020-11 Yes [id number] .5mg Inhale 2.5 [facility] 0.02 % 0-21 mL every 4 ity of nebulizer 00:00: (four) [place] solution 00 hours as Medical needed for Branch Wheezing or Shortness of Breath. albuterol 2020-11 Yes [id number] 2.5mg Inhale 3 [facility] 2.5 mg /3 0-21 mL every 4 ity of mL (0.083 00:00: (four) [place] %) 00 hours as Medical nebulizer needed for Bran ch solution Wheezing or Shortness of Breath. Miscellaneo 2020-11 Yes [id number] J40: [facility] [employer] 0-21 Brochitis ity of Supply Kit 00:00: - Dispense [place] 00 # 1 [facility] Praful [facility] Respironic s (okay for alternativ e brand) for nebulizer treatment ipratropium 2020-11 Yes [id number] .5mg Inhale 2.5 [facility] 0.02 % 0-21 mL every 4 ity of nebulizer 00:00: (four) [place] solution 00 hours as Medical needed for Branch Wheezing or Shortness of Breath. albuterol 2020-11 Yes [id number] 2.5mg Inhale 3 [facility] 2.5 mg /3 0-21 mL every 4 ity of mL (0.083 00:00: (four) [place] %) 00 hours as Medical nebulizer needed for Bran ch solution Wheezing or Shortness of Breath. Miscellaneo 2020-11 Yes [id number] J40: [facility] [employer] 0-21 Bro[place]itis ity of Supply Kit 00:00: - Dispense [place] 00 # 1 [facility] Praful [facility] Respironic s (okay for alternativ e brand) for nebulizer treatment ipratropium 2020-11 Yes [id number] .5mg Inhale 2.5 [facility] 0.02 % 0-21 mL every 4 ity of nebulizer 00:00: (four) [place] solution 00 hours as Medical needed for Branch Wheezing or Shortness of Breath. albuterol 2020-11 Yes [id number] 2.5mg Inhale 3 [facility] 2.5 mg /3 0-21 mL every 4 ity of mL (0.083 00:00: (four) [place] %) 00 hours as Medical nebulizer needed for Bran ch solution Wheezing or Shortness of Breath. Miscellaneo 2020-11 Yes [id number] J40: Un [employer] 0-21 Brochitis ity of Supply Kit 00:00: - Dispense [place] 00 # 1 [facility] Praful [facility] Respironic s (okay for alternativ e brand) for nebulizer treatment ipratropium 2020-11 Yes [id number] .5mg Inhale 2.5 [facility] 0.02 % 0-21 mL every 4 ity of nebulizer 00:00: (four) [place] solution 00 hours as Medical needed for Branch Wheezing or Shortness of Breath. albuterol 2020-11 Yes [id number] 2.5mg Inhale 3 [facility] 2.5 mg /3 0-21 mL every 4 ity of mL (0.083 00:00: (four) [place] %) 00 hours as Medical nebulizer needed for Bran ch solution Wheezing or Shortness of Breath. Miscellaneo 2020-11 Yes [id number] J40: [facility] [employer] 0-21 Brochitis ity of Supply Kit 00:00: - Dispense [place] 00 # 1 [facility] Praful [facility] Respironic s (okay for alternativ e brand) for nebulizer treatment ipratropium 2020-11 Yes [id number] .5mg Inhale 2.5 [facility] 0.02 % 0-21 mL every 4 ity of nebulizer 00:00: (four) [place] solution 00 hours as Medical needed for Branch Wheezing or Shortness of Breath. albuterol 2020-11 Yes [id number] 2.5mg Inhale 3 [facility] 2.5 mg /3 0-21 mL every 4 ity of mL (0.083 00:00: (four) [place] %) 00 hours as Medical nebulizer needed for Bran ch solution Wheezing or Shortness of Breath. Miscellaneo 2020-11 Yes [id number] J40: Un [employer] 0-21 Bro[place]itis ity of Supply Kit 00:00: - Dispense [place] 00 # 1 [facility] Praful [facility] Respironic s (okay for alternativ e brand) for nebulizer treatment ipratropium 2020-11 Yes [id number] .5mg Inhale 2.5 [facility] 0.02 % 0-21 mL every 4 ity of nebulizer 00:00: (four) [place] solution 00 hours as Medical needed for Branch Wheezing or Shortness of Breath. albuterol 2020-11 Yes [id number] 2.5mg Inhale 3 [facility] 2.5 mg /3 0-21 mL every 4 ity of mL (0.083 00:00: (four) [place] %) 00 hours as Medical nebulizer needed for Bran ch solution Wheezing or Shortness of Breath. Miscellaneo 2020-11 Yes [id number] J40: Un [employer] 0-21 [place]itis ity of Supply Kit 00:00: - Dispense [place] 00 # 1 [facility] Praful [facility] Respironic s (okay for alternativ e brand) for nebulizer treatment ipratropium 2020-11 Yes [id number] .5mg Inhale 2.5 [facility] 0.02 % 0-21 mL every 4 ity of nebulizer 00:00: (four) [place] solution 00 hours as Medical needed for Branch Wheezing or Shortness of Breath. albuterol 2020-11 Yes [id number] 2.5mg Inhale 3 [facility] 2.5 mg /3 0-21 mL every 4 ity of mL (0.083 00:00: (four) [place] %) 00 hours as Medical nebulizer needed for Bran ch solution Wheezing or Shortness of Breath. Miscellaneo 2020-11 Yes [id number] J40: [employer] 0-21 [place] ity of Supply Kit 00:00: - Dispense [place] 00 # 1 [facility] Praful [facility] Respironic s (okay for alternativ e brand) for nebulizer treatment ipratropium 2020-11 Yes [id number] .5mg Inhale 2.5 [facility] 0.02 % 0-21 mL every 4 ity of nebulizer 00:00: (four) [place] solution 00 hours as Medical needed for Branch Wheezing or Shortness of Breath. albuterol 2020-11 Yes [id number] 2.5mg Inhale 3 [facility] 2.5 mg /3 0-21 mL every 4 ity of mL (0.083 00:00: (four) [place] %) 00 hours as Medical nebulizer needed for Bran ch solution Wheezing or Shortness of Breath. Miscellaneo 2020-11 Yes [id number] J40: Un [employer] 0-21 Bro[place]itis ity of Supply Kit 00:00: - Dispense [place] 00 # 1 [facility] Praful [facility] Respironic s (okay for alternativ e brand) for nebulizer treatment ipratropium 2020-11 Yes [id number] .5mg Inhale 2.5 [facility] 0.02 % 0-21 mL every 4 ity of nebulizer 00:00: (four) [place] solution 00 hours as Medical needed for Branch Wheezing or Shortness of Breath. albuterol 2020-11 Yes [id number] 2.5mg Inhale 3 [facility] 2.5 mg /3 0-21 mL every 4 ity of mL (0.083 00:00: (four) [place] %) 00 hours as Medical nebulizer needed for Bran ch solution Wheezing or Shortness of Breath. Miscellaneo 2020-11 Yes [id number] J40: [employer] 0-21 [place] ity of Supply Kit 00:00: - Dispense [place] 00 # 1 [facility] Pra[facility] Respironic s (okay for alternativ e brand) for nebulizer treatment ipratropium 2020-11 Yes [id number] .5mg Inhale 2.5 [facility] 0.02 % 0-21 mL every 4 ity of nebulizer 00:00: (four) [place] solution 00 hours as Medical needed for Branch Wheezing or Shortness of Breath. albuterol 2020-11 Yes [id number] 2.5mg Inhale 3 [facility] 2.5 mg /3 0-21 mL every 4 ity of mL (0.083 00:00: (four) [place] %) 00 hours as Medical nebulizer needed for Bran ch solution Wheezing or Shortness of Breath. Miscellaneo 2020-11 Yes [id number] J40: Un [employer] 0-21 [place] ity of Supply Kit 00:00: - Dispense [place] 00 # 1 [facility] Respironic s (okay for alternativ e brand) for nebulizer treatment ipratropium 2020-11 Yes [id number] .5mg Inhale 2.5 [facility] 0.02 % 0-21 mL every 4 ity of nebulizer 00:00: (four) [place] solution 00 hours as Medical needed for Branch Wheezing or Shortness of Breath. albuterol 2020-11 Yes [id number] 2.5mg Inhale 3 [facility] 2.5 mg /3 0-21 mL every 4 ity of mL (0.083 00:00: (four) [place] %) 00 hours as Medical nebulizer needed for Bran [facility] solution Wheezing or Shortness of Breath. Miscellaneo 2020-11 Yes [id number] J40: Un [employer] 0-21 Bro[facility] ity of Supply Kit 00:00: - [place] # 1 [facility] Respironic s (okay for alternativ e brand) for nebulizer treatment ipratropium 2020-11 Yes [id number] .5mg Inhale 2.5 [facility] 0.02 % 0-21 mL every 4 ity of nebulizer 00:00: (four) [place] solution 00 hours as Medical needed for Branch Wheezing or Shortness of Breath. albuterol 2020-11 Yes [id number] 2.5mg Inhale 3 [facility] 2.5 mg /3 0-21 mL every 4 ity of mL (0.083 00:00: (four) [place] %) 00 hours as Medical nebulizer needed for Bran [facility] solution Wheezing or Shortness of Breath. Miscellaneo 2020-11 Yes [id number] J40: Un [employer] 0-21 Brochitis ity of Supply Kit 00:00: - Dispense [place] # 1 [facility] Respironic s (okay for alternativ e brand) for nebulizer treatment ipratropium 2020-11 Yes [id number] .5mg Inhale 2.5 [facility] 0.02 % 0-21 mL every 4 ity of nebulizer 00:00: (four) [place] solution 00 hours as Medical needed for Branch Wheezing or Shortness of Breath. albuterol 2020-11 Yes [id number] 2.5mg Inhale 3 [facility] 2.5 mg /3 0-21 mL every 4 ity of mL (0.083 00:00: (four) [place] %) 00 hours as Medical nebulizer needed for Bran [facility] solution Wheezing or Shortness of Breath. Miscellaneo 2020-11 Yes [id number] J40: [employer] 0-21 Brochitis ity of Supply Kit 00:00: - Dispense [place] 00 # 1 [facility] Respironic s (okay for alternativ e brand) for nebulizer treatment ipratropium 2020-11 Yes [id number] .5mg Inhale 2.5 [facility] 0.02 % 0-21 mL every 4 ity of nebulizer 00:00: (four) [place] solution 00 hours as Medical needed for Branch Wheezing or Shortness of Breath. albuterol 2020-11 Yes [id number] 2.5mg Inhale 3 [facility] 2.5 mg /3 0-21 mL every 4 ity of mL (0.083 00:00: (four) [place] %) 00 hours as Medical nebulizer needed for Bran [facility] solution Wheezing or Shortness of Breath. Miscellaneo 2020-11 Yes [id number] J40: [employer] 0-21 Brochitis ity of Supply Kit 00:00: - Dispense [place] 00 # 1 [facility] Respironic s (okay for alternativ e brand) for nebulizer treatment ipratropium 2020-11 Yes [id number] .5mg Inhale 2.5 [facility] 0.02 % 0-21 mL every 4 ity of nebulizer 00:00: (four) [place] solution 00 hours as Medical needed for Branch Wheezing or Shortness of Breath. albuterol 2020-11 Yes [id number] 2.5mg Inhale 3 [facility] 2.5 mg /3 0-21 mL every 4 ity of mL (0.083 00:00: (four) [place] %) 00 hours as Medical nebulizer needed for Bran [facility] solution Wheezing or Shortness of Breath. Miscellaneo 2020-11 Yes [id number] J40: [employer] 0-21 Brochitis ity of Supply Kit 00:00: - Dispense [place] 00 # 1 [facility] Respironic s (okay for alternativ e brand) for nebulizer treatment ipratropium 2020-11 Yes [id number] .5mg Inhale 2.5 [facility] 0.02 % 0-21 mL every 4 ity of nebulizer 00:00: (four) [place] solution 00 hours as Medical needed for Branch Wheezing or Shortness of Breath. albuterol 2020-11 Yes [id number] 2.5mg Inhale 3 [facility] 2.5 mg /3 0-21 mL every 4 ity of mL (0.083 00:00: (four) [place] %) 00 hours as Medical nebulizer needed for Bran [facility] solution Wheezing or Shortness of Breath. Miscellaneo 2020-11 Yes [id number] J40: [employer] 0-21 Brochitis ity of Supply Kit 00:00: - Dispense [place] 00 # 1 [facility] Respironic s (okay for alternativ e brand) for nebulizer treatment ipratropium 2020-11 Yes [id number] .5mg Inhale 2.5 [facility] 0.02 % 0-21 mL every 4 ity of nebulizer 00:00: (four) [place] solution 00 hours as Medical needed for Branch Wheezing or Shortness of Breath. albuterol 2020-11 Yes [id number] 2.5mg Inhale 3 [facility] 2.5 mg /3 0-21 mL every 4 ity of mL (0.083 00:00: (four) [place] %) 00 hours as Medical nebulizer needed for Bran [facility] solution Wheezing or Shortness of Breath. Miscellaneo 2020-11 Yes [id number] J40: [employer] 0-21 Brochitis ity of Supply Kit 00:00: - Dispense [place] 00 # 1 [facility] Respironic s (okay for alternativ e brand) for nebulizer treatment ipratropium 2020-11 Yes [id number] .5mg Inhale 2.5 [facility] 0.02 % 0-21 mL every 4 ity of nebulizer 00:00: (four) [place] solution 00 hours as Medical needed for Branch Wheezing or Shortness of Breath. albuterol 2020-11 Yes [id number] 2.5mg Inhale 3 [facility] 2.5 mg /3 0-21 mL every 4 ity of mL (0.083 00:00: (four) [place] %) 00 hours as Medical nebulizer needed for Bran [facility] solution Wheezing or Shortness of Breath. Miscellaneo 2020-11 Yes [id number] J40: [employer] 0-21 Brochitis ity of Supply Kit 00:00: - Dispense [place] 00 # 1 [facility] Respironic s (okay for alternativ e brand) for nebulizer treatment ipratropium 2020-11 Yes [id number] .5mg Inhale 2.5 [facility] 0.02 % 0-21 mL every 4 ity of nebulizer 00:00: (four) [place] solution 00 hours as Medical needed for Branch Wheezing or Shortness of Breath. albuterol 2020-11 Yes [id number] 2.5mg Inhale 3 [facility] 2.5 mg /3 0-21 mL every 4 ity of mL (0.083 00:00: (four) [place] %) 00 hours as Medical nebulizer needed for Bran [facility] solution Wheezing or Shortness of Breath. Miscellaneo 2020-11 Yes [id number] J40: [employer] 0-21 Brochitis ity of Supply Kit 00:00: - Dispense [place] 00 # 1 [facility] Respironic s (okay for alternativ e brand) for nebulizer treatment ipratropium 2020-11 Yes [id number] .5mg Inhale 2.5 [facility] 0.02 % 0-21 mL every 4 ity of nebulizer 00:00: (four) [place] solution 00 hours as Medical needed for Branch Wheezing or Shortness of Breath. albuterol 2020-11 Yes [id number] 2.5mg Inhale 3 [facility] 2.5 mg /3 0-21 mL every 4 ity of mL (0.083 00:00: (four) [place] %) 00 hours as Medical nebulizer needed for Bran [facility] solution Wheezing or Shortness of Breath. Miscellaneo 2020-11 Yes [id number] J40: [employer] 0-21 Brochitis ity of Supply Kit 00:00: - Dispense [place] 00 # 1 [facility] Respironic s (okay for alternativ e brand) for nebulizer treatment ipratropium 2020-11 Yes [id number] .5mg Inhale 2.5 [facility] 0.02 % 0-21 mL every 4 ity of nebulizer 00:00: (four) [place] solution 00 hours as Medical needed for Branch Wheezing or Shortness of Breath. albuterol 2020-11 Yes [id number] 2.5mg Inhale 3 [facility] 2.5 mg /3 0-21 mL every 4 ity of mL (0.083 00:00: (four) [place] %) 00 hours as Medical nebulizer needed for Bran [facility] solution Wheezing or Shortness of Breath. Miscellaneo 2020-11 Yes [id number] J40: [employer] 0-21 Brochitis ity of Supply Kit 00:00: - Dispense [place] 00 # 1 [facility] Respironic s (okay for alternativ e brand) for nebulizer treatment ipratropium 2020-11 Yes [id number] .5mg Inhale 2.5 [facility] 0.02 % 0-21 mL every 4 ity of nebulizer 00:00: (four) [place] solution 00 hours as Medical needed for Branch Wheezing or Shortness of Breath. albuterol 2020-11 Yes [id number] 2.5mg Inhale 3 [facility] 2.5 mg /3 0-21 mL every 4 ity of mL (0.083 00:00: (four) [place] %) 00 hours as Medical nebulizer needed for Bran [facility] solution Wheezing or Shortness of Breath. Miscellaneo 2020-11 Yes [id number] J40: [employer] 0-21 Brochitis ity of Supply Kit 00:00: - Dispense [place] 00 # 1 [facility] Respironic s (okay for alternativ e brand) for nebulizer treatment ipratropium 2020-11 Yes [id number] .5mg Inhale 2.5 [facility] 0.02 % 0-21 mL every 4 ity of nebulizer 00:00: (four) [place] solution 00 hours as Medical needed for Branch Wheezing or Shortness of Breath. albuterol 2020-11 Yes [id number] 2.5mg Inhale 3 [facility] 2.5 mg /3 0-21 mL every 4 ity of mL (0.083 00:00: (four) [place] %) 00 hours as Medical nebulizer needed for Bran [facility] solution Wheezing or Shortness of Breath. Miscellaneo 2020-11 Yes [id number] J40: [employer] 0-21 Brochitis ity of Supply Kit 00:00: - Dispense [place] 00 # 1 [facility] Respironic s (okay for alternativ e brand) for nebulizer treatment ipratropium 2020-11 Yes [id number] .5mg Inhale 2.5 [facility] 0.02 % 0-21 mL every 4 ity of nebulizer 00:00: (four) [place] solution 00 hours as Medical needed for Branch Wheezing or Shortness of Breath. albuterol 2020-11 Yes [id number] 2.5mg Inhale 3 [facility] 2.5 mg /3 0-21 mL every 4 ity of mL (0.083 00:00: (four) [place] %) 00 hours as Medical nebulizer needed for Bran [facility] solution Wheezing or Shortness of Breath. Miscellaneo 2020-11 Yes [id number] J40: [employer] 0-21 Brochitis ity of Supply Kit 00:00: - Dispense [place] 00 # 1 [facility] Respironic s (okay for alternativ e brand) for nebulizer treatment ipratropium 2020-11 Yes [id number] .5mg Inhale 2.5 [facility] 0.02 % 0-21 mL every 4 ity of nebulizer 00:00: (four) [place] solution 00 hours as Medical needed for Branch Wheezing or Shortness of Breath. albuterol 2020-11 Yes [id number] 2.5mg Inhale 3 [facility] 2.5 mg /3 0-21 mL every 4 ity of mL (0.083 00:00: (four) [place] %) 00 hours as Medical nebulizer needed for Bran [facility] solution Wheezing or Shortness of Breath. Miscellaneo 2020-11 Yes [id number] J40: [employer] 0-21 Brochitis ity of Supply Kit 00:00: - Dispense [place] 00 # 1 [facility] Respironic s (okay for alternativ e brand) for nebulizer treatment ipratropium 2020-11 Yes [id number] .5mg Inhale 2.5 [facility] 0.02 % 0-21 mL every 4 ity of nebulizer 00:00: (four) [place] solution 00 hours as Medical needed for Branch Wheezing or Shortness of Breath. albuterol 2020-11 Yes [id number] 2.5mg Inhale 3 [facility] 2.5 mg /3 0-21 mL every 4 ity of mL (0.083 00:00: (four) [place] %) 00 hours as Medical nebulizer needed for Bran [facility] solution Wheezing or Shortness of Breath. Miscellaneo 2020-11 Yes [id number] J40: [employer] 0-21 Brochitis ity of Supply Kit 00:00: - Dispense [place] 00 # 1 [facility] Respironic s (okay for alternativ e brand) for nebulizer treatment ipratropium 2020-11 Yes [id number] .5mg Inhale 2.5 [facility] 0.02 % 0-21 mL every 4 ity of nebulizer 00:00: (four) [place] solution 00 hours as Medical needed for Branch Wheezing or Shortness of Breath. albuterol 2020-11 Yes [id number] 2.5mg Inhale 3 [facility] 2.5 mg /3 0-21 mL every 4 ity of mL (0.083 00:00: (four) [place] %) 00 hours as Medical nebulizer needed for Bran [facility] solution Wheezing or Shortness of Breath. Miscellaneo 2020-11 Yes [id number] J40: [employer] 0-21 Brochitis ity of Supply Kit 00:00: - Dispense [place] 00 # 1 [facility] Respironic s (okay for alternativ e brand) for nebulizer treatment ipratropium 2020-11 Yes [id number] .5mg Inhale 2.5 [facility] 0.02 % 0-21 mL every 4 ity of nebulizer 00:00: (four) [place] solution 00 hours as Medical needed for Branch Wheezing or Shortness of Breath. albuterol 2020-11 Yes [id number] 2.5mg Inhale 3 [facility] 2.5 mg /3 0-21 mL every 4 ity of mL (0.083 00:00: (four) [place] %) 00 hours as Medical nebulizer needed for Bran [facility] solution Wheezing or Shortness of Breath. Miscellaneo 2020-11 Yes [id number] J40: [employer] 0-21 Brochitis ity of Supply Kit 00:00: - Dispense [place] 00 # 1 [facility] Respironic s (okay for alternativ e brand) for nebulizer treatment ipratropium 2020-11 Yes [id number] .5mg Inhale 2.5 [facility] 0.02 % 0-21 mL every 4 ity of nebulizer 00:00: (four) [place] solution 00 hours as Medical needed for Branch Wheezing or Shortness of Breath. albuterol 2020-11 Yes [id number] 2.5mg Inhale 3 [facility] 2.5 mg /3 0-21 mL every 4 ity of mL (0.083 00:00: (four) [place] %) 00 hours as Medical nebulizer needed for Bran [facility] solution Wheezing or Shortness of Breath. Miscellaneo 2020-11 Yes [id number] J40: [employer] 0-21 Brochitis ity of Supply Kit 00:00: - Dispense [place] 00 # 1 [facility] Respironic s (okay for alternativ e brand) for nebulizer treatment ipratropium 2020-11 Yes [id number] .5mg Inhale 2.5 [facility] 0.02 % 0-21 mL every 4 ity of nebulizer 00:00: (four) [place] solution 00 hours as Medical needed for Branch Wheezing or Shortness of Breath. albuterol 2020-11 Yes [id number] 2.5mg Inhale 3 [facility] 2.5 mg /3 0-21 mL every 4 ity of mL (0.083 00:00: (four) [place] %) 00 hours as Medical nebulizer needed for Bran [facility] solution Wheezing or Shortness of Breath. Miscellaneo 2020-11 Yes [id number] J40: [employer] 0-21 Brochitis ity of Supply Kit 00:00: - Dispense [place] 00 # 1 [facility] Respironic s (okay for alternativ e brand) for nebulizer treatment ipratropium 2020-11 Yes [id number] .5mg Inhale 2.5 [facility] 0.02 % 0-21 mL every 4 ity of nebulizer 00:00: (four) [place] solution 00 hours as Medical needed for Branch Wheezing or Shortness of Breath. albuterol 2020-11 Yes [id number] 2.5mg Inhale 3 [facility] 2.5 mg /3 0-21 mL every 4 ity of mL (0.083 00:00: (four) [place] %) 00 hours as Medical nebulizer needed for Bran [facility] solution Wheezing or Shortness of Breath. Miscellaneo 2020-11 Yes [id number] J40: [employer] 0-21 Brochitis ity of Supply Kit 00:00: - Dispense [place] 00 # 1 [facility] Respironic s (okay for alternativ e brand) for nebulizer treatment ipratropium 2020-11 Yes [id number] .5mg Inhale 2.5 [facility] 0.02 % 0-21 mL every 4 ity of nebulizer 00:00: (four) [place] solution 00 hours as Medical needed for Branch Wheezing or Shortness of Breath. albuterol 2020-11 Yes [id number] 2.5mg Inhale 3 [facility] 2.5 mg /3 0-21 mL every 4 ity of mL (0.083 00:00: (four) [place] %) 00 hours as Medical nebulizer needed for Bran [facility] solution Wheezing or Shortness of Breath. Miscellaneo 2020-11 Yes [id number] J40: [employer] 0-21 Brochitis ity of Supply Kit 00:00: - Dispense [place] 00 # 1 [facility] Respironic s (okay for alternativ e brand) for nebulizer treatment ipratropium 2020-11 Yes [id number] .5mg Inhale 2.5 [facility] 0.02 % 0-21 mL every 4 ity of nebulizer 00:00: (four) [place] solution 00 hours as Medical needed for Branch Wheezing or Shortness of Breath. albuterol 2020-11 Yes [id number] 2.5mg Inhale 3 [facility] 2.5 mg /3 0-21 mL every 4 ity of mL (0.083 00:00: (four) [place] %) 00 hours as Medical nebulizer needed for Bran [facility] solution Wheezing or Shortness of Breath. Miscellaneo 2020-11 Yes [id number] J40: [employer] 0-21 Brochitis ity of Supply Kit 00:00: - Dispense [place] 00 # 1 [facility] Respironic s (okay for alternativ e brand) for nebulizer treatment ipratropium 2020-11 Yes [id number] .5mg Inhale 2.5 [facility] 0.02 % 0-21 mL every 4 ity of nebulizer 00:00: (four) [place] solution 00 hours as Medical needed for Branch Wheezing or Shortness of Breath. albuterol 2020-11 Yes [id number] 2.5mg Inhale 3 [facility] 2.5 mg /3 0-21 mL every 4 ity of mL (0.083 00:00: (four) [place] %) 00 hours as Medical nebulizer needed for Bran [facility] solution Wheezing or Shortness of Breath. Miscellaneo 2020-11 Yes [id number] J40: [employer] 0-21 Brochitis ity of Supply Kit 00:00: - Dispense [place] 00 # 1 [facility] Respironic s (okay for alternativ e brand) for nebulizer treatment ipratropium 2020-11 Yes [id number] .5mg Inhale 2.5 [facility] 0.02 % 0-21 mL every 4 ity of nebulizer 00:00: (four) [place] solution 00 hours as Medical needed for Branch Wheezing or Shortness of Breath. Miscellaneo 2020-11 Yes [id number] J40: [employer] 0-21 Brochitis ity of Supply Kit 00:00: - Dispense [place] 00 # 1 [facility] Respironic s (okay for alternativ e brand) for nebulizer treatment ipratropium 2020-11 Yes [id number] .5mg Inhale 2.5 [facility] 0.02 % 0-21 mL every 4 ity of nebulizer 00:00: (four) [place] solution 00 hours as Medical needed for Branch Wheezing or Shortness of Breath. Miscellaneo 2020-11 Yes [id number] J40: [employer] 0-21 Brochitis ity of Supply Kit 00:00: - Dispense [place] 00 # 1 [facility] Respironic s (okay for alternativ e brand) for nebulizer treatment ipratropium 2020-11 Yes [id number] .5mg Inhale 2.5 [facility] 0.02 % 0-21 mL every 4 ity of nebulizer 00:00: (four) [place] solution 00 hours as Medical needed for Branch Wheezing or Shortness of Breath. Miscellaneo 2020-11 Yes [id number] J40: [employer] 0-21 Brochitis ity of Supply Kit 00:00: - Dispense [place] 00 # 1 [facility] Respironic s (okay for alternativ e brand) for nebulizer treatment ipratropium 2020-11 Yes [id number] .5mg Inhale 2.5 [facility] 0.02 % 0-21 mL every 4 ity of nebulizer 00:00: (four) [place] solution 00 hours as Medical needed for Branch Wheezing or Shortness of Breath. Miscellaneo 2020-11 Yes [id number] J40: [employer] 0-21 Brochitis ity of Supply Kit 00:00: - Dispense [place] 00 # 1 [facility] Respironic s (okay for alternativ e brand) for nebulizer treatment ipratropium 2020-11 Yes [id number] .5mg Inhale 2.5 [facility] 0.02 % 0-21 mL every 4 ity of nebulizer 00:00: (four) [place] solution 00 hours as Medical needed for Branch Wheezing or Shortness of Breath. Miscellaneo 2020-11 Yes [id number] J40: [employer] 0-21 Brochitis ity of Supply Kit 00:00: - Dispense [place] 00 # 1 [facility] Respironic s (okay for alternativ e brand) for nebulizer treatment ipratropium 2020-11 Yes [id number] .5mg Inhale 2.5 [facility] 0.02 % 0-21 mL every 4 ity of nebulizer 00:00: (four) [place] solution 00 hours as Medical needed for Branch Wheezing or Shortness of Breath. Miscellaneo 2020-11 Yes [id number] J40: [employer] 0-21 Brochitis ity of Supply Kit 00:00: - Dispense [place] 00 # 1 [facility] Respironic s (okay for alternativ e brand) for nebulizer treatment ipratropium 2020-11 Yes [id number] .5mg Inhale 2.5 [facility] 0.02 % 0-21 mL every 4 ity of nebulizer 00:00: (four) [place] solution 00 hours as Medical needed for Branch Wheezing or Shortness of Breath. Miscellaneo 2020-11 Yes [id number] J40: [employer] 0-21 Brochitis ity of Supply Kit 00:00: - Dispense [place] 00 # 1 [facility] Respironic s (okay for alternativ e brand) for nebulizer treatment ipratropium 2020-11 Yes [id number] .5mg Inhale 2.5 [facility] 0.02 % 0-21 mL every 4 ity of nebulizer 00:00: (four) [place] solution 00 hours as Medical needed for Branch Wheezing or Shortness of Breath. Miscellaneo 2020-11 Yes [id number] J40: [employer] 0-21 Brochitis ity of Supply Kit 00:00: - Dispense [place] 00 # 1 [facility] Respironic s (okay for alternativ e brand) for nebulizer treatment ipratropium 2020-11 Yes [id number] .5mg Inhale 2.5 [facility] 0.02 % 0-21 mL every 4 ity of nebulizer 00:00: (four) [place] solution 00 hours as Medical needed for Branch Wheezing or Shortness of Breath. Miscellaneo 2020-11 Yes [id number] J40: [employer] 0-21 Brochitis ity of Supply Kit 00:00: - Dispense [place] 00 # 1 [facility] Respironic s (okay for alternativ e brand) for nebulizer treatment ipratropium 2020-11 Yes [id number] .5mg Inhale 2.5 [facility] 0.02 % 0-21 mL every 4 ity of nebulizer 00:00: (four) [place] solution 00 hours as Medical needed for Branch Wheezing or Shortness of Breath. Miscellaneo 2020-11 Yes [id number] J40: [employer] 0-21 Brochitis ity of Supply Kit 00:00: - Dispense [place] 00 # 1 [facility] Respironic s (okay for alternativ e brand) for nebulizer treatment ipratropium 2020-11 Yes [id number] .5mg Inhale 2.5 [facility] 0.02 % 0-21 mL every 4 ity of nebulizer 00:00: (four) [place] solution 00 hours as Medical needed for Branch Wheezing or Shortness of Breath. Miscellaneo 2020-11 Yes [id number] J40: [employer] 0-21 Brochitis ity of Supply Kit 00:00: - Dispense [place] 00 # 1 [facility] Respironic s (okay for alternativ e brand) for nebulizer treatment ipratropium 2020-11 Yes [id number] .5mg Inhale 2.5 [facility] 0.02 % 0-21 mL every 4 ity of nebulizer 00:00: (four) [place] solution 00 hours as Medical needed for Branch Wheezing or Shortness of Breath. Miscellaneo 2020-11 Yes [id number] J40: [employer] 0-21 Brochitis ity of Supply Kit 00:00: - Dispense [place] 00 # 1 [facility] Respironic s (okay for alternativ e brand) for nebulizer treatment ipratropium 2020-11 Yes [id number] .5mg Inhale 2.5 [facility] 0.02 % 0-21 mL every 4 ity of nebulizer 00:00: (four) [place] solution 00 hours as Medical needed for Branch Wheezing or Shortness of Breath. Miscellaneo 2020-11 Yes [id number] J40: [employer] 0-21 Brochitis ity of Supply Kit 00:00: - Dispense [place] 00 # 1 [facility] Respironic s (okay for alternativ e brand) for nebulizer treatment ipratropium 2020-11 Yes [id number] .5mg Inhale 2.5 [facility] 0.02 % 0-21 mL every 4 ity of nebulizer 00:00: (four) [place] solution 00 hours as Medical needed for Branch Wheezing or Shortness of Breath. Miscellaneo 2020-11 Yes [id number] J40: [employer] 0-21 Brochitis ity of Supply Kit 00:00: - Dispense [place] 00 # 1 [facility] Respironic s (okay for alternativ e brand) for nebulizer treatment ipratropium 2020-11 Yes [id number] .5mg Inhale 2.5 [facility] 0.02 % 0-21 mL every 4 ity of nebulizer 00:00: (four) [place] solution 00 hours as Medical needed for Branch Wheezing or Shortness of Breath. Miscellaneo 2020-11 Yes [id number] J40: [employer] 0-21 Brochitis ity of Supply Kit 00:00: - Dispense [place] 00 # 1 [facility] Respironic s (okay for alternativ e brand) for nebulizer treatment ipratropium 2020-11 Yes [id number] .5mg Inhale 2.5 [facility] 0.02 % 0-21 mL every 4 ity of nebulizer 00:00: (four) [place] solution 00 hours as Medical needed for Branch Wheezing or Shortness of Breath. Miscellaneo 2020-11 Yes [id number] J40: Un [employer] 0-21 Brochitis ity of Supply Kit 00:00: - Dispense [place] 00 # 1 [facility] Respironic s (okay for alternativ e brand) for nebulizer treatment ipratropium 2020-11 Yes [id number] .5mg Inhale 2.5 [facility] 0.02 % 0-21 mL every 4 ity of nebulizer 00:00: (four) [place] solution 00 hours as Medical needed for Branch Wheezing or Shortness of Breath. Miscellaneo 2020-11 Yes [id number] J40: [employer] 0-21 Brochitis ity of Supply Kit 00:00: - Dispense [place] 00 # 1 [facility] Respironic s (okay for alternativ e brand) for nebulizer treatment ipratropium 2020-11 Yes [id number] .5mg Inhale 2.5 [facility] 0.02 % 0-21 mL every 4 ity of nebulizer 00:00: (four) [place] solution 00 hours as Medical needed for Branch Wheezing or Shortness of Breath. Miscellaneo 2020-11 Yes [id number] J40: Un [employer] 0-21 Brochitis ity of Supply Kit 00:00: - Dispense [place] 00 # 1 [facility] Respironic s (okay for alternativ e brand) for nebulizer treatment ipratropium 2020-11 Yes [id number] .5mg Inhale 2.5 [facility] 0.02 % 0-21 mL every 4 ity of nebulizer 00:00: (four) [place] solution 00 hours as Medical needed for Branch Wheezing or Shortness of Breath. Miscellaneo 2020-11 Yes [id number] J40: Un [employer] 0-21 Brochitis ity of Supply Kit 00:00: - Dispense [place] 00 # 1 [facility] Respironic s (okay for alternativ e brand) for nebulizer treatment ipratropium 2020-11 Yes [id number] .5mg Inhale 2.5 [facility] 0.02 % 0-21 mL every 4 ity of nebulizer 00:00: (four) [place] solution 00 hours as Medical needed for Branch Wheezing or Shortness of Breath. Miscellaneo 2020-11 Yes [id number] J40: Un [employer] 0-21 Brochitis ity of Supply Kit 00:00: - Dispense [place] 00 # 1 [facility] Respironic s (okay for alternativ e brand) for nebulizer treatment ipratropium 2020-11 Yes [id number] .5mg Inhale 2.5 [facility] 0.02 % 0-21 mL every 4 ity of nebulizer 00:00: (four) [place] solution 00 hours as Medical needed for Branch Wheezing or Shortness of Breath. Miscellaneo 2020-11 Yes [id number] J40: Un [employer] 0-21 Brochitis ity of Supply Kit 00:00: - Dispense [place] 00 # 1 [facility] Respironic s (okay for alternativ e brand) for nebulizer treatment ipratropium 2020-11 Yes [id number] .5mg Inhale 2.5 [facility] 0.02 % 0-21 mL every 4 ity of nebulizer 00:00: (four) [place] solution 00 hours as Medical needed for Branch Wheezing or Shortness of Breath. Miscellaneo 2020-11 Yes [id number] J40: Un [employer] 0-21 Brochitis ity of Supply Kit 00:00: - Dispense [place] 00 # 1 [facility] Respironic s (okay for alternativ e brand) for nebulizer treatment ipratropium 2020-11 Yes [id number] .5mg Inhale 2.5 [facility] 0.02 % 0-21 mL every 4 ity of nebulizer 00:00: (four) [place] solution 00 hours as Medical needed for Branch Wheezing or Shortness of Breath. Miscellaneo 2020-11 Yes [id number] J40: [employer] 0-21 [facility] of Supply Kit 00:00: - [place] # 1 [facility] Respironic s (okay for alternativ e brand) for nebulizer treatment ipratropium 2020-11 Yes [id number] .5mg Inhale 2.5 [facility] 0.02 % 0-21 mL every 4 ity of nebulizer 00:00: (four) [place] solution 00 hours as Medical needed for Branch Wheezing or Shortness of Breath. Miscellaneo 2020-11 Yes [id number] J40: [employer] 0-21 [facility] ity of Supply Kit 00:00: - Dispense [place] 00 # 1 [facility] Respironic s (okay for alternativ e brand) for nebulizer treatment ipratropium 2020-11 Yes [id number] .5mg Inhale 2.5 [facility] 0.02 % 0-21 mL every 4 ity of nebulizer 00:00: (four) [place] solution 00 hours as Medical needed for Branch Wheezing or Shortness of Breath. Miscellaneo 2020-11 Yes [id number] J40: [employer] 0-21 [facility] ity of Supply Kit 00:00: - Dispense [place] 00 # 1 [facility] Respironic s (okay for alternativ e brand) for nebulizer treatment ipratropium 2020-11 Yes [id number] .5mg Inhale 2.5 [facility] 0.02 % 0-21 mL every 4 ity of nebulizer 00:00: (four) [place] solution 00 hours as Medical needed for Branch Wheezing or Shortness of Breath. Miscellaneo 2020-11 Yes [id number] J40: [employer] 0-21 [facility]itis ity of Supply Kit 00:00: - Dispense [place] 00 # 1 [facility] Respironic s (okay for alternativ e brand) for nebulizer treatment ipratropium 2020-11 Yes [id number] .5mg Inhale 2.5 [facility] 0.02 % 0-21 mL every 4 ity of nebulizer 00:00: (four) [place] solution 00 hours as Medical needed for Branch Wheezing or Shortness of Breath. Miscellaneo 2020-11 Yes [id number] J40: [employer] 0-21 [facility]itis ity of Supply Kit 00:00: - Dispense [place] 00 # 1 [facility] Respironic s (okay for alternativ e brand) for nebulizer treatment ipratropium 2020-11 Yes [id number] .5mg Inhale 2.5 [facility] 0.02 % 0-21 mL every 4 ity of nebulizer 00:00: (four) [place] solution 00 hours as Medical needed for Branch Wheezing or Shortness of Breath. Miscellaneo 2020-11 Yes [id number] J40: [employer] 0-21 Bro[facility]itis ity of Supply Kit 00:00: - Dispense [place] 00 # 1 [facility] Respironic s (okay for alternativ e brand) for nebulizer treatment ipratropium 2020-11 Yes [id number] .5mg Inhale 2.5 [facility] 0.02 % 0-21 mL every 4 ity of nebulizer 00:00: (four) [place] solution 00 hours as Medical needed for Branch Wheezing or Shortness of Breath. Miscellaneo 2020-11 Yes [id number] J40: [employer] 0-21 Bro[facility]itis ity of Supply Kit 00:00: - Dispense [place] 00 # 1 [facility] Respironic s (okay for alternativ e brand) for nebulizer treatment ipratropium 2020-11 Yes [id number] .5mg Inhale 2.5 [facility] 0.02 % 0-21 mL every 4 ity of nebulizer 00:00: (four) [place] solution 00 hours as Medical needed for Branch Wheezing or Shortness of Breath. Miscellaneo 2020-11 Yes [id number] J40: [employer] 0-21 Bro[facility]itis ity of Supply Kit 00:00: - Dispense [place] 00 # 1 [facility] Respironic s (okay for alternativ e brand) for nebulizer treatment ipratropium 2020-11 Yes [id number] .5mg Inhale 2.5 [facility] 0.02 % 0-21 mL every 4 ity of nebulizer 00:00: (four) [place] solution 00 hours as Medical needed for Branch Wheezing or Shortness of Breath. Miscellaneo 2020-11 Yes [id number] J40: [employer] 0-21 Bro[facility]itis ity of Supply Kit 00:00: - Dispense [place] 00 # 1 [facility] Respironic s (okay for alternativ e brand) for nebulizer treatment ipratropium 2020-11 Yes [id number] .5mg Inhale 2.5 [facility] 0.02 % 0-21 mL every 4 ity of nebulizer 00:00: (four) [place] solution 00 hours as Medical needed for Branch Wheezing or Shortness of Breath. Miscellaneo 2020-11 Yes [id number] J40: [employer] 0-21 Bro[facility]itis ity of Supply Kit 00:00: - Dispense [place] 00 # 1 [facility] Respironic s (okay for alternativ e brand) for nebulizer treatment ipratropium 2020-11 Yes [id number] .5mg Inhale 2.5 [facility] 0.02 % 0-21 mL every 4 ity of nebulizer 00:00: (four) [place] solution 00 hours as Medical needed for Branch Wheezing or Shortness of Breath. Miscellaneo 2020-11 Yes [id number] J40: [employer] 0-21 Bro[facility]itis ity of Supply Kit 00:00: - Dispense [place] 00 # 1 [facility] Respironic s (okay for alternativ e brand) for nebulizer treatment ipratropium 2020-11 Yes [id number] .5mg Inhale 2.5 [facility] 0.02 % 0-21 mL every 4 ity of nebulizer 00:00: (four) [place] solution 00 hours as Medical needed for Branch Wheezing or Shortness of Breath. Miscellaneo 2020-11 Yes [id number] J40: [employer] 0-21 Bro[facility]itis ity of Supply Kit 00:00: - Dispense [place] 00 # 1 [facility] Respironic s (okay for alternativ e brand) for nebulizer treatment ipratropium 2020-11 Yes [id number] .5mg Inhale 2.5 [facility] 0.02 % 0-21 mL every 4 ity of nebulizer 00:00: (four) [place] solution 00 hours as Medical needed for Branch Wheezing or Shortness of Breath. Miscellaneo 2020-11 Yes [id number] J40: [employer] 0-21 Bro[facility]itis ity of Supply Kit 00:00: - Dispense [place] 00 # 1 [facility] Respironic s (okay for alternativ e brand) for nebulizer treatment ipratropium 2020-11 Yes [id number] .5mg Inhale 2.5 [facility] 0.02 % 0-21 mL every 4 ity of nebulizer 00:00: (four) [place] solution 00 hours as Medical needed for Branch Wheezing or Shortness of Breath. Miscellaneo 2020-11 Yes [id number] J40: [employer] 0-21 Bro[facility]itis ity of Supply Kit 00:00: - Dispense [place] 00 # 1 [facility] Respironic s (okay for alternativ e brand) for nebulizer treatment ipratropium 2020-11 Yes [id number] .5mg Inhale 2.5 [facility] 0.02 % 0-21 mL every 4 ity of nebulizer 00:00: (four) [place] solution 00 hours as Medical needed for Branch Wheezing or Shortness of Breath. Miscellaneo 2020-11 Yes [id number] J40: [employer] 0-21 Bro[facility]itis ity of Supply Kit 00:00: - Dispense [place] 00 # 1 [facility] Respironic s (okay for alternativ e brand) for nebulizer treatment ipratropium 2020-11 Yes [id number] .5mg Inhale 2.5 [facility] 0.02 % 0-21 mL every 4 ity of nebulizer 00:00: (four) [place] solution 00 hours as Medical needed for Branch Wheezing or Shortness of Breath. Miscellaneo 2020-11 Yes [id number] J40: [employer] 0-21 Bro[facility]itis ity of Supply Kit 00:00: - Dispense [place] 00 # 1 [facility] Respironic s (okay for alternativ e brand) for nebulizer treatment ipratropium 2020-11 Yes [id number] .5mg Inhale 2.5 [facility] 0.02 % 0-21 mL every 4 ity of nebulizer 00:00: (four) [place] solution 00 hours as Medical needed for Branch Wheezing or Shortness of Breath. Miscellaneo 2020-11 Yes [id number] J40: [employer] 0-21 Bro[facility]itis ity of Supply Kit 00:00: - Dispense [place] 00 # 1 [facility] Respironic s (okay for alternativ e brand) for nebulizer treatment ipratropium 2020-11 Yes [id number] .5mg Inhale 2.5 [facility] 0.02 % 0-21 mL every 4 ity of nebulizer 00:00: (four) [place] solution 00 hours as Medical needed for Branch Wheezing or Shortness of Breath. Miscellaneo 2020-11 Yes [id number] J40: [employer] 0-21 Bro[facility]itis ity of Supply Kit 00:00: - Dispense [place] 00 # 1 [facility] Respironic s (okay for alternativ e brand) for nebulizer treatment ipratropium 2020-11 Yes [id number] .5mg Inhale 2.5 [facility] 0.02 % 0-21 mL every 4 ity of nebulizer 00:00: (four) [place] solution 00 hours as Medical needed for Branch Wheezing or Shortness of Breath. Miscellaneo 2020-11 Yes [id number] J40: [employer] 0-21 Bro[facility]itis ity of Supply Kit 00:00: - Dispense [place] 00 # 1 [facility] Respironic s (okay for alternativ e brand) for nebulizer treatment ipratropium 2020-11 Yes [id number] .5mg Inhale 2.5 [facility] 0.02 % 0-21 mL every 4 ity of nebulizer 00:00: (four) [place] solution 00 hours as Medical needed for Branch Wheezing or Shortness of Breath. Miscellaneo 2020-11 Yes [id number] J40: [employer] 0-21 Bro[facility] ity of Supply Kit 00:00: - Dispense [place] 00 # 1 [facility] Respironic s (okay for alternativ e brand) for nebulizer treatment ipratropium 2020-11 Yes [id number] .5mg Inhale 2.5 [facility] 0.02 % 0-21 mL every 4 ity of nebulizer 00:00: (four) [place] solution 00 hours as Medical needed for Branch Wheezing or Shortness of Breath. Miscellaneo 2020-11 Yes [id number] J40: [employer] 0-21 Bro[facility]itis ity of Supply Kit 00:00: - Dispense [place] 00 # 1 [facility] Respironic s (okay for alternativ e brand) for nebulizer treatment ipratropium 2020-11 Yes [id number] .5mg Inhale 2.5 [facility] 0.02 % 0-21 mL every 4 ity of nebulizer 00:00: (four) [place] solution 00 hours as Medical needed for Branch Wheezing or Shortness of Breath. Miscellaneo 2020-11 Yes [id number] J40: [employer] 0-21 Bro[facility]itis ity of Supply Kit 00:00: - Dispense [place] 00 # 1 [facility] Respironic s (okay for alternativ e brand) for nebulizer treatment ipratropium 2020-11 Yes [id number] .5mg Inhale 2.5 [facility] 0.02 % 0-21 mL every 4 ity of nebulizer 00:00: (four) [place] solution 00 hours as Medical needed for Branch Wheezing or Shortness of Breath. Miscellaneo 2020-11 Yes [id number] J40: [employer] 0-21 Bro[facility]itis ity of Supply Kit 00:00: - Dispense [place] 00 # 1 [facility] Respironic s (okay for alternativ e brand) for nebulizer treatment ipratropium 2020-11 Yes [id number] .5mg Inhale 2.5 [facility] 0.02 % 0-21 mL every 4 ity of nebulizer 00:00: (four) [place] solution 00 hours as Medical needed for Branch Wheezing or Shortness of Breath. Miscellaneo 2020-11 Yes [id number] J40: [employer] 0-21 Bro[facility]itis ity of Supply Kit 00:00: - Dispense [place] 00 # 1 [facility] Respironic s (okay for alternativ e brand) for nebulizer treatment ipratropium 2020-11 Yes [id number] .5mg Inhale 2.5 [facility] 0.02 % 0-21 mL every 4 ity of nebulizer 00:00: (four) [place] solution 00 hours as Medical needed for Branch Wheezing or Shortness of Breath. Miscellaneo 2020-11 Yes [id number] J40: [employer] 0-21 Brochitis ity of Supply Kit 00:00: - Dispense [place] 00 # 1 [facility] Respironic s (okay for alternativ e brand) for nebulizer treatment ipratropium 2020-11 Yes [id number] .5mg Inhale 2.5 [facility] 0.02 % 0-21 mL every 4 ity of nebulizer 00:00: (four) [place] solution 00 hours as Medical needed for Branch Wheezing or Shortness of Breath. Miscellaneo 2020-11 Yes [id number] J40: [employer] 0-21 Bro[facility]itis ity of Supply Kit 00:00: - Dispense [place] 00 # 1 [facility] Respironic s (okay for alternativ e brand) for nebulizer treatment ipratropium 2020-11 Yes [id number] .5mg Inhale 2.5 [facility] 0.02 % 0-21 mL every 4 ity of nebulizer 00:00: (four) [place] solution 00 hours as Medical needed for Branch Wheezing or Shortness of Breath. Miscellaneo 2020-11 Yes [id number] J40: [employer] 0-21 Bro[facility]itis ity of Supply Kit 00:00: - Dispense [place] 00 # 1 [facility] Respironic s (okay for alternativ e brand) for nebulizer treatment ipratropium 2020-11 Yes [id number] .5mg Inhale 2.5 [facility] 0.02 % 0-21 mL every 4 ity of nebulizer 00:00: (four) [place] solution 00 hours as Medical needed for Branch Wheezing or Shortness of Breath. Miscellaneo 2020-11 Yes [id number] J40: [employer] 0-21 Bro[facility]itis ity of Supply Kit 00:00: - Dispense [place] 00 # 1 [facility] Respironic s (okay for alternativ e brand) for nebulizer treatment ipratropium 2020-11 Yes [id number] .5mg Inhale 2.5 [facility] 0.02 % 0-21 mL every 4 ity of nebulizer 00:00: (four) [place] solution 00 hours as Medical needed for Branch Wheezing or Shortness of Breath. Miscellaneo 2020-11 Yes [id number] J40: [employer] 0-21 Bro[facility]itis ity of Supply Kit 00:00: - Dispense [place] 00 # 1 [facility] Respironic s (okay for alternativ e brand) for nebulizer treatment ipratropium 2020-11 Yes [id number] .5mg Inhale 2.5 [facility] 0.02 % 0-21 mL every 4 ity of nebulizer 00:00: (four) [place] solution 00 hours as Medical needed for Branch Wheezing or Shortness of Breath. Miscellaneo 2020-11 Yes [id number] J40: [employer] 0-21 Bro[facility]itis ity of Supply Kit 00:00: - Dispense [place] 00 # 1 [facility] Respironic s (okay for alternativ e brand) for nebulizer treatment ipratropium 2020-11 Yes [id number] .5mg Inhale 2.5 [facility] 0.02 % 0-21 mL every 4 ity of nebulizer 00:00: (four) [place] solution 00 hours as Medical needed for Branch Wheezing or Shortness of Breath. Miscellaneo 2020-11 Yes [id number] J40: [employer] 0-21 Bro[facility]itis ity of Supply Kit 00:00: - Dispense [place] 00 # 1 [facility] Respironic s (okay for alternativ e brand) for nebulizer treatment ipratropium 2020-11 Yes [id number] .5mg Inhale 2.5 [facility] 0.02 % 0-21 mL every 4 ity of nebulizer 00:00: (four) [place] solution 00 hours as Medical needed for Branch Wheezing or Shortness of Breath. Miscellaneo 2020-11 Yes [id number] J40: [employer] 0-21 Bro[facility]itis ity of Supply Kit 00:00: - Dispense [place] 00 # 1 [facility] Respironic s (okay for alternativ e brand) for nebulizer treatment ipratropium 2020-11 Yes [id number] .5mg Inhale 2.5 [facility] 0.02 % 0-21 mL every 4 ity of nebulizer 00:00: (four) [place] solution 00 hours as Medical needed for Branch Wheezing or Shortness of Breath. Miscellaneo 2020-11 Yes [id number] J40: [employer] 0-21 Bro[facility]itis ity of Supply Kit 00:00: - Dispense [place] 00 # 1 [facility] Respironic s (okay for alternativ e brand) for nebulizer treatment ipratropium 2020-11 Yes [id number] .5mg Inhale 2.5 [facility] 0.02 % 0-21 mL every 4 ity of nebulizer 00:00: (four) [place] solution 00 hours as Medical needed for Branch Wheezing or Shortness of Breath. Miscellaneo 2020-11 Yes [id number] J40: [employer] 0-21 Bro[facility]itis ity of Supply Kit 00:00: - Dispense [place] 00 # 1 [facility] Respironic s (okay for alternativ e brand) for nebulizer treatment ipratropium 2020-11 Yes [id number] .5mg Inhale 2.5 [facility] 0.02 % 0-21 mL every 4 ity of nebulizer 00:00: (four) [place] solution 00 hours as Medical needed for Branch Wheezing or Shortness of Breath. Miscellaneo 2020-11 Yes [id number] J40: [employer] 0-21 Bro[facility]itis ity of Supply Kit 00:00: - Dispense [place] 00 # 1 [facility] Respironic s (okay for alternativ e brand) for nebulizer treatment ipratropium 2020-11 Yes [id number] .5mg Inhale 2.5 [facility] 0.02 % 0-21 mL every 4 ity of nebulizer 00:00: (four) [place] solution 00 hours as Medical needed for Branch Wheezing or Shortness of Breath. Miscellaneo 2020-11 Yes [id number] J40: [employer] 0-21 Bro[facility]itis ity of Supply Kit 00:00: - Dispense [place] 00 # 1 [facility] Respironic s (okay for alternativ e brand) for nebulizer treatment ipratropium 2020-11 Yes [id number] .5mg Inhale 2.5 [facility] 0.02 % 0-21 mL every 4 ity of nebulizer 00:00: (four) [place] solution 00 hours as Medical needed for Branch Wheezing or Shortness of Breath. Miscellaneo 2020-11 Yes [id number] J40: [employer] 0-21 Bro[facility]itis ity of Supply Kit 00:00: - Dispense [place] 00 # 1 [facility] Respironic s (okay for alternativ e brand) for nebulizer treatment ipratropium 2020-11 Yes [id number] .5mg Inhale 2.5 [facility] 0.02 % 0-21 mL every 4 ity of nebulizer 00:00: (four) [place] solution 00 hours as Medical needed for Branch Wheezing or Shortness of Breath. Miscellaneo 2020-11 Yes [id number] J40: [employer] 0-21 Bro[facility]itis ity of Supply Kit 00:00: - Dispense [place] 00 # 1 [facility] Respironic s (okay for alternativ e brand) for nebulizer treatment ipratropium 2020-11 Yes [id number] .5mg Inhale 2.5 [facility] 0.02 % 0-21 mL every 4 ity of nebulizer 00:00: (four) [place] solution 00 hours as Medical needed for Branch Wheezing or Shortness of Breath. Miscellaneo 2020-11 Yes [id number] J40: [employer] 0-21 Bro[facility]itis ity of Supply Kit 00:00: - Dispense [place] 00 # 1 [facility] Respironic s (okay for alternativ e brand) for nebulizer treatment ipratropium 2020-11 Yes [id number] .5mg Inhale 2.5 [facility] 0.02 % 0-21 mL every 4 ity of nebulizer 00:00: (four) [place] solution 00 hours as Medical needed for Branch Wheezing or Shortness of Breath. Miscellaneo 2020-11 Yes [id number] J40: [employer] 0-21 Brochitis ity of Supply Kit 00:00: - Dispense [place] 00 # 1 [facility] Respironic s (okay for alternativ e brand) for nebulizer treatment ipratropium 2020-11 Yes [id number] .5mg Inhale 2.5 [facility] 0.02 % 0-21 mL every 4 ity of nebulizer 00:00: (four) [place] solution 00 hours as Medical needed for Branch Wheezing or Shortness of Breath. Miscellaneo 2020-11 Yes [id number] J40: [employer] 0-21 Brochitis ity of Supply Kit 00:00: - Dispense [place] 00 # 1 [facility] Respironic s (okay for alternativ e brand) for nebulizer treatment ipratropium 2020-11 Yes [id number] .5mg Inhale 2.5 [facility] 0.02 % 0-21 mL every 4 ity of nebulizer 00:00: (four) [place] solution 00 hours as Medical needed for Branch Wheezing or Shortness of Breath. Miscellaneo 2020-11 Yes [id number] J40: [employer] 0-21 Brochitis ity of Supply Kit 00:00: - Dispense [place] 00 # 1 [facility] Respironic s (okay for alternativ e brand) for nebulizer treatment ipratropium 2020-11 Yes [id number] .5mg Inhale 2.5 [facility] 0.02 % 0-21 mL every 4 ity of nebulizer 00:00: (four) [place] solution 00 hours as Medical needed for Branch Wheezing or Shortness of Breath. Miscellaneo 2020-11 Yes [id number] J40: [employer] 0-21 Brochitis ity of Supply Kit 00:00: - Dispense [place] 00 # 1 [facility] Respironic s (okay for alternativ e brand) for nebulizer treatment ipratropium 2020-11 Yes [id number] .5mg Inhale 2.5 [facility] 0.02 % 0-21 mL every 4 ity of nebulizer 00:00: (four) [place] solution 00 hours as Medical needed for Branch Wheezing or Shortness of Breath. Miscellaneo 2020-11 Yes [id number] J40: [employer] 0-21 Bro[facility]itis ity of Supply Kit 00:00: - Dispense [place] 00 # 1 [facility] Respironic s (okay for alternativ e brand) for nebulizer treatment ipratropium 2020-11 Yes [id number] .5mg Inhale 2.5 [facility] 0.02 % 0-21 mL every 4 ity of nebulizer 00:00: (four) [place] solution 00 hours as Medical needed for Branch Wheezing or Shortness of Breath. albuterol 2020-11- No [id number] 2.5mg Inhale 3 [facility] 2.5 mg /3 0-21 03-01 mL every 4 ity of mL (0.083 00:00: 00:00 (four) [place] %) 00 :00 hours as Medical nebulizer needed for Bran ch solution Wheezing or Shortness of Breath. aspirin Yes [id number] 81mg Take 1 U nivers (ADULT LOW 4-20 02 tablet by ity of DOSE 00:00: mouth [place] ASPIRIN) 81 00 daily. Medica l mg [facility] tablet aspirin 2020-0 Yes [id number] 81mg Take 1 [facility] n[facility] (ADULT LOW 4-20 02 tablet by ity of DOSE 00:00: mouth [place] ASPIRIN) 81 00 daily. Medica l mg [facility] tablet aspirin 2020-0 Yes [id number] 81mg Take 1 [facility] n[facility] (ADULT LOW 4-20 02 tablet by ity of DOSE 00:00: mouth [place] ASPIRIN) 81 00 daily. Medica l mg [facility] tablet aspirin 2020-0 Yes [id number] 81mg Take 1 [facility] nivers (ADULT LOW 4-20 02 tablet by ity of DOSE 00:00: mouth [place] ASPIRIN) 81 00 daily. Medica l mg [facility] tablet aspirin 2020-0 Yes [id number] 81mg Take 1 [facility] nivers (ADULT LOW 4-20 02 tablet by ity of DOSE 00:00: mouth [place] ASPIRIN) 81 00 daily. Medica l mg [facility] tablet aspirin 2020-0 Yes [id number] 81mg Take 1 [facility] nivers (ADULT LOW 4-20 02 tablet by ity of DOSE 00:00: mouth [place] ASPIRIN) 81 00 daily. Medica l mg [facility] tablet aspirin 2020-0 Yes [id number] 81mg Take 1 [facility] nivers (ADULT LOW 4-20 02 tablet by ity of DOSE 00:00: mouth [place] ASPIRIN) 81 00 daily. Medica l mg [facility] tablet aspirin 2020-0 Yes [id number] 81mg Take 1 U nivers (ADULT LOW 4-20 02 tablet by ity of DOSE 00:00: mouth [place] ASPIRIN) 81 00 daily. Medica l mg [facility] tablet aspirin 2020-0 Yes [id number] 81mg Take 1 U nivers (ADULT LOW 4-20 02 tablet by ity of DOSE 00:00: mouth [place] ASPIRIN) 81 00 daily. Medica l mg [facility] tablet aspirin 2020-0 Yes [id number] 81mg Take 1 [facility] nivers (ADULT LOW 4-20 02 tablet by ity of DOSE 00:00: mouth [place] ASPIRIN) 81 00 daily. Medica l mg [facility] tablet aspirin 2020-0 Yes [id number] 81mg Take 1 [facility] nivers (ADULT LOW 4-20 02 tablet by ity of DOSE 00:00: mouth [place] ASPIRIN) 81 00 daily. Medica l mg [facility] tablet aspirin 2020-0 Yes [id number] 81mg Take 1 [facility] nivers (ADULT LOW 4-20 02 tablet by ity of DOSE 00:00: mouth [place] ASPIRIN) 81 00 daily. Medica l mg [facility] tablet aspirin 2020-0 Yes [id number] 81mg Take 1 [facility] nivers (ADULT LOW 4-20 02 tablet by ity of DOSE 00:00: mouth [place] ASPIRIN) 81 00 daily. Medica l mg [facility] tablet aspirin 2020-0 Yes [id number] 81mg Take 1 [facility] nivers (ADULT LOW 4-20 02 tablet by ity of DOSE 00:00: mouth [place] ASPIRIN) 81 00 daily. Medica l mg [facility] tablet aspirin 2020-0 Yes [id number] 81mg Take 1 [facility] nivers (ADULT LOW 4-20 02 tablet by ity of DOSE 00:00: mouth [place] ASPIRIN) 81 00 daily. Medica l mg [facility] tablet aspirin 2020-0 Yes [id number] 81mg Take 1 U nivers (ADULT LOW 4-20 02 tablet by ity of DOSE 00:00: mouth [place] ASPIRIN) 81 00 daily. Medica l mg [facility] tablet aspirin 2020-0 Yes [id number] 81mg Take 1 U nivers (ADULT LOW 4-20 02 tablet by ity of DOSE 00:00: mouth [place] ASPIRIN) 81 00 daily. Medica l mg [facility] tablet aspirin 2020-0 Yes [id number] 81mg Take 1 U nivers (ADULT LOW 4-20 02 tablet by ity of DOSE 00:00: mouth [place] ASPIRIN) 81 00 daily. Medica l mg [facility] tablet aspirin 2020-0 Yes [id number] 81mg Take 1 U nivers (ADULT LOW 4-20 02 tablet by ity of DOSE 00:00: mouth [place] ASPIRIN) 81 00 daily. Medica l mg [facility] tablet aspirin 2020-0 Yes [id number] 81mg Take 1 [facility] nivers (ADULT LOW 4-20 02 tablet by ity of DOSE 00:00: mouth [place] ASPIRIN) 81 00 daily. Medica l mg [facility] tablet aspirin 2020-0 Yes [id number] 81mg Take 1 U nivers (ADULT LOW 4-20 02 tablet by ity of DOSE 00:00: mouth [place] ASPIRIN) 81 00 daily. Medica l mg [facility] tablet aspirin 2020-0 Yes [id number] 81mg Take 1 U nivers (ADULT LOW 4-20 02 tablet by ity of DOSE 00:00: mouth [place] ASPIRIN) 81 00 daily. Medica l mg [facility] tablet aspirin 2020-0 Yes [id number] 81mg Take 1 U nivers (ADULT LOW 4-20 02 tablet by ity of DOSE 00:00: mouth [place] ASPIRIN) 81 00 daily. Medica l mg [facility] tablet aspirin 2020-0 Yes [id number] 81mg Take 1 U nivers (ADULT LOW 4-20 02 tablet by ity of DOSE 00:00: mouth [place] ASPIRIN) 81 00 daily. Medica l mg [facility] tablet aspirin 2020-0 Yes [id number] 81mg Take 1 U nivers (ADULT LOW 4-20 02 tablet by ity of DOSE 00:00: mouth [place] ASPIRIN) 81 00 daily. Medica l mg [facility] tablet aspirin 2020-0 Yes [id number] 81mg Take 1 U nivers (ADULT LOW 4-20 02 tablet by ity of DOSE 00:00: mouth [place] ASPIRIN) 81 00 daily. Medica l mg [facility] tablet aspirin 2020-0 Yes [id number] 81mg Take 1 U nivers (ADULT LOW 4-20 02 tablet by ity of DOSE 00:00: mouth [place] ASPIRIN) 81 00 daily. Medica l mg [facility] tablet aspirin 2020-0 Yes [id number] 81mg Take 1 U nivers (ADULT LOW 4-20 02 tablet by ity of DOSE 00:00: mouth [place] ASPIRIN) 81 00 daily. Medica l mg [facility] tablet aspirin 2020-0 Yes [id number] 81mg Take 1 U nivers (ADULT LOW 4-20 02 tablet by ity of DOSE 00:00: mouth [place] ASPIRIN) 81 00 daily. Medica l mg [facility] tablet aspirin 2020-0 Yes [id number] 81mg Take 1 U nivers (ADULT LOW 4-20 02 tablet by ity of DOSE 00:00: mouth [place] ASPIRIN) 81 00 daily. Medica l mg [facility] tablet aspirin 2020-0 Yes [id number] 81mg Take 1 U nivers (ADULT LOW 4-20 02 tablet by ity of DOSE 00:00: mouth [place] ASPIRIN) 81 00 daily. Medica l mg [facility] tablet aspirin 2020-0 Yes [id number] 81mg Take 1 U nivers (ADULT LOW 4-20 02 tablet by ity of DOSE 00:00: mouth [place] ASPIRIN) 81 00 daily. Medica l mg [facility] tablet aspirin 2020-0 Yes [id number] 81mg Take 1 U nivers (ADULT LOW 4-20 02 tablet by ity of DOSE 00:00: mouth [place] ASPIRIN) 81 00 daily. Medica l mg [facility] tablet aspirin 2020-0 Yes [id number] 81mg Take 1 U nivers (ADULT LOW 4-20 02 tablet by ity of DOSE 00:00: mouth [place] ASPIRIN) 81 00 daily. Medica l mg [facility] tablet aspirin 2020-0 Yes [id number] 81mg Take 1 U nivers (ADULT LOW 4-20 02 tablet by ity of DOSE 00:00: mouth [place] ASPIRIN) 81 00 daily. Medica l mg [facility] tablet aspirin 2020-0 Yes [id number] 81mg Take 1 U nivers (ADULT LOW 4-20 02 tablet by ity of DOSE 00:00: mouth [place] ASPIRIN) 81 00 daily. Medica l mg EC Branch tablet aspirin 2020-0 Yes [id number] 81mg Take 1 U nivers (ADULT LOW 4-20 02 tablet by ity of DOSE 00:00: mouth [place] ASPIRIN) 81 00 daily. Medica l mg EC Branch tablet aspirin 2020-0 Yes [id number] 81mg Take 1 U nivers (ADULT LOW 4-20 02 tablet by ity of DOSE 00:00: mouth [place] ASPIRIN) 81 00 daily. Medica l mg EC Branch tablet aspirin 2020-0 Yes [id number] 81mg Take 1 U nivers (ADULT LOW 4-20 02 tablet by ity of DOSE 00:00: mouth [place] ASPIRIN) 81 00 daily. Medica l mg EC Branch tablet aspirin 2020-0 Yes [id number] 81mg Take 1 U nivers (ADULT LOW 4-20 02 tablet by ity of DOSE 00:00: mouth [place] ASPIRIN) 81 00 daily. Medica l mg EC Branch tablet aspirin 2020-0 Yes [id number] 81mg Take 1 U nivers (ADULT LOW 4-20 02 tablet by ity of DOSE 00:00: mouth [place] ASPIRIN) 81 00 daily. Medica l mg [facility] tablet aspirin 2020-0 Yes [id number] 81mg Take 1 U nivers (ADULT LOW 4-20 02 tablet by ity of DOSE 00:00: mouth [place] ASPIRIN) 81 00 daily. Medica l mg EC [facility] tablet aspirin 2020-0 Yes [id number] 81mg Take 1 U nivers (ADULT LOW 4-20 02 tablet by ity of DOSE 00:00: mouth [place] ASPIRIN) 81 00 daily. Medica l mg [facility] tablet aspirin 2020-0 Yes [id number] 81mg Take 1 U nivers (ADULT LOW 4-20 02 tablet by ity of DOSE 00:00: mouth [place] ASPIRIN) 81 00 daily. Medica l mg [facility] tablet aspirin 2020-0 Yes [id number] 81mg Take 1 U nivers (ADULT LOW 4-20 02 tablet by ity of DOSE 00:00: mouth [place] ASPIRIN) 81 00 daily. Medica l mg [facility] tablet aspirin 2020-0 Yes [id number] 81mg Take 1 U nivers (ADULT LOW 4-20 02 tablet by ity of DOSE 00:00: mouth [place] ASPIRIN) 81 00 daily. Medica l mg [facility] tablet aspirin 2020-0 Yes [id number] 81mg Take 1 U nivers (ADULT LOW 4-20 02 tablet by ity of DOSE 00:00: mouth [place] ASPIRIN) 81 00 daily. Medica l mg [facility] tablet aspirin 2020-0 Yes [id number] 81mg Take 1 U nivers (ADULT LOW 4-20 02 tablet by ity of DOSE 00:00: mouth [place] ASPIRIN) 81 00 daily. Medica l mg [facility] tablet aspirin 2020-0 Yes [id number] 81mg Take 1 U nivers (ADULT LOW 4-20 02 tablet by ity of DOSE 00:00: mouth [place] ASPIRIN) 81 00 daily. Medica l mg [facility] tablet aspirin 2020-0 Yes [id number] 81mg Take 1 U nivers (ADULT LOW 4-20 02 tablet by ity of DOSE 00:00: mouth [place] ASPIRIN) 81 00 daily. Medica l mg [facility] tablet aspirin 2020-0 Yes [id number] 81mg Take 1 U nivers (ADULT LOW 4-20 02 tablet by ity of DOSE 00:00: mouth [place] ASPIRIN) 81 00 daily. Medica l mg [facility] tablet aspirin 2020-0 Yes [id number] 81mg Take 1 U nivers (ADULT LOW 4-20 02 tablet by ity of DOSE 00:00: mouth [place] ASPIRIN) 81 00 daily. Medica l mg [facility] tablet aspirin 2020-0 Yes [id number] 81mg Take 1 U nivers (ADULT LOW 4-20 02 tablet by ity of DOSE 00:00: mouth [place] ASPIRIN) 81 00 daily. Medica l mg [facility] tablet aspirin 2020-0 Yes [id number] 81mg Take 1 U nivers (ADULT LOW 4-20 02 tablet by ity of DOSE 00:00: mouth [place] ASPIRIN) 81 00 daily. Medica l mg [facility] tablet aspirin 2020-0 Yes [id number] 81mg Take 1 U nivers (ADULT LOW 4-20 02 tablet by ity of DOSE 00:00: mouth [place] ASPIRIN) 81 00 daily. Medica l mg [facility] tablet aspirin 2020-0 Yes [id number] 81mg Take 1 U nivers (ADULT LOW 4-20 02 tablet by ity of DOSE 00:00: mouth [place] ASPIRIN) 81 00 daily. Medica l mg [facility] tablet aspirin 2020-0 Yes [id number] 81mg Take 1 U nivers (ADULT LOW 4-20 02 tablet by ity of DOSE 00:00: mouth [place] ASPIRIN) 81 00 daily. Medica l mg [facility] tablet aspirin 2020-0 Yes [id number] 81mg Take 1 U nivers (ADULT LOW 4-20 02 tablet by ity of DOSE 00:00: mouth [place] ASPIRIN) 81 00 daily. Medica l mg [facility] tablet aspirin 2020-0 Yes [id number] 81mg Take 1 U nivers (ADULT LOW 4-20 02 tablet by ity of DOSE 00:00: mouth [place] ASPIRIN) 81 00 daily. Medica l mg [facility] tablet aspirin 2020-0 Yes [id number] 81mg Take 1 U nivers (ADULT LOW 4-20 02 tablet by ity of DOSE 00:00: mouth [place] ASPIRIN) 81 00 daily. Medica l mg [facility] tablet aspirin 2020-0 Yes [id number] 81mg Take 1 U nivers (ADULT LOW 4-20 02 tablet by ity of DOSE 00:00: mouth [place] ASPIRIN) 81 00 daily. Medica l mg [facility] tablet aspirin Yes [id number] 81mg Take 1 U nivers (ADULT LOW 4-20 02 tablet by ity of DOSE 00:00: mouth [place] ASPIRIN) 81 00 daily. Medica l mg [facility] tablet aspirin Yes [id number] 81mg Take 1 U nivers (ADULT LOW 4-20 02 tablet by ity of DOSE 00:00: mouth [place] ASPIRIN) 81 00 daily. Medica l mg [facility] tablet aspirin Yes [id number] 81mg Take 1 U nivers (ADULT LOW 4-20 02 tablet by ity of DOSE 00:00: mouth [place] ASPIRIN) 81 00 daily. Medica l mg [facility] tablet aspirin Yes [id number] 81mg Take 1 U nivers (ADULT LOW 4-20 02 tablet by ity of DOSE 00:00: mouth [place] ASPIRIN) 81 00 daily. Medica l mg [facility] tablet aspirin Yes [id number] 81mg Take 1 U nivers (ADULT LOW 4-20 02 tablet by ity of DOSE 00:00: mouth [place] ASPIRIN) 81 00 daily. Medica l mg [facility] tablet aspirin 2022- No [id number] 81mg Take 1 Univers (ADULT LOW 4-20 06-23 02 tablet by ity of DOSE 00:00: 00:00 mouth [place] ASPIRIN) 81 00 :00 daily. Medica l mg [facility] tablet aspirin 2022- No [id number] 81mg Take 1 Univers (ADULT LOW 4-20 06-23 02 tablet by ity of DOSE 00:00: 00:00 mouth [place] ASPIRIN) 81 00 :00 daily. Medica l mg [facility] tablet aspirin 2022- No [id number] 81mg Take 1 Univers (ADULT LOW 4-20 06-23 02 tablet by ity of DOSE 00:00: 00:00 mouth [place] ASPIRIN) 81 00 :00 daily. Medica l mg [facility] tablet rosuvastati Yes [id number] 20mg Take 1 Univers n 20 mg 1-27 tablet by ity of tablet 00:00: mouth [place] 00 daily. Medical Branch rosuvastati Yes [id number] 20mg Take 1 Univers n 20 mg 1-27 tablet by ity of tablet 00:00: mouth [place] 00 daily. Medical Branch rosuvastati Yes [id number] 20mg Take 1 Univers n 20 mg 1-27 tablet by ity of tablet 00:00: mouth [place] 00 daily. Medical Branch rosuvastati Yes [id number] 20mg Take 1 Univers n 20 mg 1-27 tablet by ity of tablet 00:00: mouth [place] 00 daily. Medical Branch rosuvastati Yes [id number] 20mg Take 1 Univers n 20 mg 1-27 tablet by ity of tablet 00:00: mouth [place] 00 daily. Medical Branch rosuvastati 2021- No [id number] 20mg Take 1 Univers n 20 mg 1-27 10-05 tablet by ity of tablet 00:00: 00:00 mouth [place] 00 :00 daily. [facility] Branch rosuvastati 2021- No [id number] 20mg Take 1 Univers n 20 mg 1-27 10-05 tablet by ity of tablet 00:00: 00:00 mouth [place] 00 :00 daily. Medical [facility] HYDROcodone 0 Yes TK 1 T [...] [place] mg per 00 Medical tablet Branch Vital Signs Vital Name Observation Time Observation Value Comments Source Systolic blood 2023-07-17 15:17:00 114 mm[Hg] Univer sity of pressure [facility] Diastolic blood 2023-07-17 15:17:00 71 mm[Hg] Unive rsity of [facility] Heart rate 2023-07-17 15:16:00 89 /min Universi ty of [facility] Body temperature 2023-07-17 15:16:00 36 Jacqui [facility] 2023-07-17 15:16:00 18 /min [facility] Body height 2023-07-17 15:16:00 162.6 cm [facility] ty [facility] [place] [facility] [place] Body weight 2023-07-17 15:16:00 109.317 kg Universi ty of [facility] BMI 2023-07-17 15:16:00 41.37 kg/m2 Universi ty [facility] Oxygen saturation in 2023-07-17 15:16:00 95 /min University Arterial blood by [facility] Pulse oximetry Branch Systolic blood 2023-03-12 16:17:00 118 mm[Hg] Univer sity of [facility] Diastolic blood 2023-03-12 16:17:00 87 mm[Hg] Unive rsity of pressure [facility] Heart rate 2023-03-12 16:17:00 80 /min Universi ty of [facility] Branch Respiratory rate 2023-03-12 16:17:00 18 /min [facility] Body height 2023-03-12 16:17:00 160 cm Universi ty of [facility] Body weight 2023-03-12 16:17:00 107.502 kg Universi ty of [facility] BMI 2023-03-12 16:17:00 41.98 kg/m2 Universi ty of [facility] Oxygen saturation in 2023-03-12 16:17:00 98 /min University of Arterial blood by [place] [facility] Pulse oximetry Branch Systolic blood 2022-11-08 14:27:00 136 mm[Hg] Univer sity of pressure [place] [facility] Diastolic blood 2022-11-08 14:27:00 89 mm[Hg] Unive rsity of pressure [place] [facility] Heart rate 2022-11-08 14:27:00 69 /min Universi ty [facility] [place] [facility] Body temperature 2022-11-08 14:27:00 36.06 Jacqui Univ ersity of [place] [facility] Respiratory rate 2022-11-08 14:27:00 18 /min Univ ersity of [place] [facility] Body height 2022-11-08 14:27:00 162.6 cm [facility]i ty [facility] [place] [facility] Oxygen saturation in 2022-11-08 14:27:00 99 /min University of Arterial blood by [facility] Pulse oximetry Branch Systolic blood 2022-11-08 14:17:00 136 mm[Hg] Univer sity of pressure [place] [facility] Diastolic blood 2022-11-08 14:17:00 89 mm[Hg] Unive rsity of pressure [place] [facility] Heart rate 2022-11-08 14:17:00 69 /min Universi ty of [place] [facility] Body temperature 2022-11-08 14:17:00 36.06 Jacqui Univ ersity of [place] [facility] Respiratory rate 2022-11-08 14:17:00 18 /min Univ ersity of [place] [facility] Oxygen saturation in 2022-11-08 14:17:00 99 /min University of Arterial blood by [facility] Pulse oximetry Branch Systolic blood 2022-10-11 22:00:00 162 mm[Hg] Univer sity of pressure [place] [facility] Diastolic blood 2022-10-11 22:00:00 109 mm[Hg] Unive rsity of pressure [place] [facility] Heart rate 2022-10-11 22:00:00 71 /min Universi ty of [place] [facility] Respiratory rate 2022-10-11 22:00:00 18 /min Univ ersity of [place] [facility] Oxygen saturation in 2022-10-11 22:00:00 97 /min University of Arterial blood by [facility] Pulse oximetry Branch Body temperature 2022-10-11 19:55:00 35.61 Jacqui Univ ersity of [place] [facility] Body height 2022-10-11 19:55:00 162.6 cm [facility] [place] [facility] Body weight 2022-10-11 19:55:00 114.76 kg [facility] [place] [facility] BMI 2022-10-11 19:55:00 43.43 kg/m2 [facility] [place] [facility] Systolic blood 2022-09-17 14:46:00 134 mm[Hg] Univer sity of pressure [place] [facility] Diastolic blood 2022-09-17 14:46:00 80 mm[Hg] Unive rsity of pressure [place] [facility] Heart rate 2022-09-17 14:46:00 85 /min [facility] [place] [facility] Body temperature 2022-09-17 14:46:00 36.11 Jacqui Univ [facility] [place] [facility] Respiratory rate 2022-09-17 14:46:00 18 /min Univ ersity [facility] [place] [facility] Body height 2022-09-17 14:46:00 162.6 cm [facility] [place] [facility] Body weight 2022-09-17 14:46:00 114.76 kg Universi ty of [place] [facility] BMI 2022-09-17 14:46:00 43.43 kg/m2 [facility] [place] [facility] Oxygen saturation in 2022-09-17 14:46:00 97 /min University of Arterial blood by [facility] Pulse oximetry Branch Systolic blood 2022-08-08 13:11:00 120 mm[Hg] Univer sity of pressure [place] [facility] Diastolic blood 2022-08-08 13:11:00 77 mm[Hg] Unive rsity of pressure [place] [facility] Heart rate 2022-08-08 13:11:00 96 /min [facility]i [facility] [place] [facility] Body temperature 2022-08-08 13:11:00 35.94 Jacqui Univ [facility] [place] [facility] Respiratory rate 2022-08-08 13:11:00 18 /min Univ ersity [facility] [place] [facility] Body height 2022-08-08 13:11:00 162.6 cm [facility]i [facility] [place] [facility] Oxygen saturation in 2022-08-08 13:11:00 96 /min University of Arterial blood by [facility] Pulse oximetry Branch Systolic blood 2022-07-04 13:58:00 132 mm[Hg] Univer [facility] Diastolic blood 2022-07-04 13:58:00 83 mm[Hg] [facility] Heart rate 2022-07-04 13:52:00 74 /min [facility] Body temperature 2022-07-04 13:52:00 36.06 Jacqui [facility] Respiratory rate 2022-07-04 13:52:00 18 /min [facility] Body height 2022-07-04 13:52:00 162.6 cm [facility] Body weight 2022-07-04 13:52:00 116.121 kg [facility] BMI 2022-07-04 13:52:00 43.94 kg/m2 [facility] Procedures Procedure Date / Time Performing Clinician Source Performed SCANNED LAB RESULTS 2023-05-14 05:01:00 Doctor Madison [facility] DME/SUPPLY JUSTIFICATION 2023-04-10 05:01:00 Doctor Madison [facility] DME/SUPPLY JUSTIFICATION 2023-03-26 05:01:00 Doctor Madison [facility] MICROALBUMIN URINE 2023-03-13 21:03:00 Cody Dwyer [facility] COMP. METABOLIC PANEL 2023-03-12 16:59:00 [facility] ([id number] CBC WITH DIFF 2023-03-12 16:59:00 Cody Dwyer [facility] [place] GLYCOSYLATED HEMOGLOBIN 2023-03-12 16:59:00 Cody Dwyer [facility] (A1C) [facility] VITAMIN D, 25-OH 2023-03-12 16:59:00 Cody Dwyer [facility] [place] ASSIGNMENT OF BENEFITS 2023-03-12 16:10:59 Doctor Madison [facility] MEDICAL RELEASE/CLEARANCE 2022-12-18 06:01:00 Doctor Madison [facility] FORMS [facility] COMP. METABOLIC PANEL 2022-10-11 20:42:00 Pedro Pitt [facility] ([id number]) Medical Branch CBC WITH DIFF 2022-10-11 20:42:00 Pedro Pitt o f [facility] RAPID INFLUENZA A/B 2022-10-11 20:42:00 Pedro Pitt ty of [facility] CONSENT/REFUSAL FOR 2022-09-17 14:45:00 Doctor Madison [facility] DIAGNOSIS AND TREATMENT [facility] INSURANCE CORRESPONDENCE 2022-09-13 06:01:00 Doctor Madison, [facility] DME/SUPPLY JUSTIFICATION 2022-06-27 05:01:00 Doctor Madison, [facility] Encounters Start End Encounter Admission Attending Care Care Encounter Source Date/Time Date/Time Type Type Clinicians Facility Department ID 2021-09-05 Emergency [facility] [id number] [facility] 2023-07-17 Outpatient R [facility] [id number] [facility] 10:40:00 11:14:42 CODY evangelista [facility] 2023-07-17 2023-07-17 [facility] 1.2.840.114 [id number] [facility] 10:40:00 11:14:42 Visit Cody RAMESH 350.1.13.10 i ty [place] [id number] [place] dic[address] 2023-07-12 2023-07-12 Telephone [facility] 1.2.840.114 1 [id number] Univers 00:00:00 00:00:00 Cody RAMESH 350.1.13.10 i [place] [phone] [place] dical NAL [address] [place] [address] 2023-07-12 2023-07-12 Telephone [facility] 1.2.840.114 [id number] Univers 00:00:00 00:00:00 Cody RAMESH 350.1.13.10 [place] [id number] [place] dical NAL [address] [place] [address] 2023-07-10 2023-07-10 Refill [facility] 1.2.840.114 [id number] Univers 00:00:00 00:00:00 Cody RAMESH 350.1.13.10 [place] [id number] [place] dical NAL 044 [facility] 2023-07-09 2023-07-[address] [facility] 1.2.840.114 [id number] Univers 00:00:00 00:00:00 Outreach Barbara Rowena RAMESH 350.1.13.10 ity [facility] 4[place] [id number] [place] NAL 044 [facility] 2023-07-09 2023-07-09 Telephone [facility] 1.2.840.114 [id number] Univers 00:00:00 00:00:00 Cody RAMESH 350.1.13.10 i ty [facility] 4[place]2.[place].2.[place] [id number] [place] dical NAL 231 [facility] 2023-07-04 2023-07-04 Outpatient R DANIEL, [facility] [id number] Univers 09:20:00 09:20:00 TANISHA tonja o soledad [facility] 2023-07-04 2023-07-04 Outpatient R DANIEL, [facility] [id number] Univers 09:20:00 09:20:00 TANISHA evangelista o f [facility] 2023-07-02 2023-07-02 Telephone [facility] 1.2.840.114 [id number] Univers 00:00:00 00:00:00 Cody RAMESH 350.1.13.10 [place] [id number] [place] dical NAL 044 [facility] 2023-06-28 2023-06-28 Refill [facility] 1.2.840.114 [id number] Univers 00:00:00 00:00:00 Cody RAMESH 350.1.13.10 [place] [id number] [address] 2023-06-26 2023-06-26 Telephone [facility] 1.2.840.114 [id number] Univers 00:00:00 00:00:00 Cody [facility] 350.1.13.10 it y of [place] 4.2.7.2.686 Willy as VERONICA?BLEA [id number] [facility] ANGELA [address] [place] [address] OFFICE [facility] 2023-06-13 2023-06-[address] [facility] 1.2.840.114 [id number] Univers 00:00:00 00:00:00 Outreach Barbara RAMESH 350.1.13.10 ity [facility] 4.2.[place].2.[place] [id number] [address] 2023-06-10 2023-06-10 Refill [facility] 1.2.840.114 [id number] Univers 00:00:00 00:00:00 Cody RAMESH 350.1.13.10 [place] ty [place] [id number] [address] 2023-06-06 2023-06-06 Telephone [facility] 1.2.840.114 [id number] Univers 00:00:00 00:00:00 Cody RAMESH 350.1.13.10 i ty [facility] 4.2.7.2.[place] [id number] [address] 2023-06-04 2023-06-04 [id number] Univers 11:40:00 11:40:00 CODY evangelista of [facility] 2023-06-04 2023-06-04 [facility] 1.2.840.114 [id number] Univers 00:00:00 00:00:00 Cody RAMESH 350.1.13.10 i ty [facility] 4.2.7.2.[place] [id number] [address] 2023-05-29 2023-05-29 [facility] 1.2.840.114 [id number] Univers 00:00:00 00:00:00 Cody RAMESH 350.1.13.10 i ty [place] [id number] [facility] NAL [address] [place] [address] 2023-05-29 2023-05-29 [facility] 1.2.840.114 [id number] Univers 00:00:00 00:00:00 Cody RAMESH 350.1.13.10 i ty [place] [id number] [facility] NAL [address] [place] [address] 2023-05-28 2023-05-28 [facility] 1.2.840.114 [id number] Univers 00:00:00 00:00:00 Coyd RAMESH 350.1.13.10 i ty [place] [id number] [facility] NAL [address] [place] [address] 2023-05-24 2023-05-24 [facility] 1.2.840.114 [id number] Univers 00:00:00 00:00:00 Cody RAMESH 350.1.13.10 i ty [place] [id number] [facility] NAL [address] [place] [address] 2023-05-23 2023-05-23 [facility] 1.2.840.114 [id number] [facility] Univers 00:00:00 00:00:00 Outreach Barbara RAMESH 350.1.13.10 ity [address] [facility] 4.2.7.2.[place] [id number] [facility] [address] [place] [address] 2023-05-23 2023-05-23 [facility] 1.2.840.114 [id number] Univers 00:00:00 00:00:00 Cody RAMESH 350.1.13.10 i ty of [facility] 4.2.7.2.[place] [id number] [place] dical NAL [address] [place] [address] 2023-05-23 2023-05-23 [facility] 1.2.840.114 [id number] Univers 00:00:00 00:00:00 Cody RAMESH 350.1.13.10 i ty [facility] 4.2.7.2.[place] [id number] [place] dical NAL [address] [place] [address] 2023-05-20 2023-05-20 [facility] 1.2.840.114 [id number] Univers 00:00:00 00:00:00 Cody RAMESH 350.1.13.10 i ty [facility] 4.2.7.2.[place] [id number] [place] dical NAL [address] [place] [address] 2023-05-16 2023-05-16 [facility] 1.2.840.114 [id number] Univers 00:00:00 00:00:00 Cody RAMESH 350.1.13.10 i ty of [facility] 4.2.7.2.[place] [id number] [place] dical NAL [address] [place] [address] 2023-05-15 2023-05-15 [facility] 1.2.840.114 [id number] Univers 00:00:00 00:00:00 Cody RAMESH 350.1.13.10 i ty of [facility] 4.2.7.2.[place] [id number] [place] dical NAL [address] [place] [address] 2023-05-14 2023-05-14 [facility] 1.2.840.114 [id number] Univers 00:00:00 00:00:00 Cody RAMESH 350.1.13.10 i ty of [facility] 4.2.7.2.[place] [id number] [facility] NAL [address] [place] [address] 2023-05-14 2023-05-14 Orders Doctor VELAZQUEZ 1.2.840.114 [id number] [facility] Univers 00:00:00 00:00:00 Only Unassigned, MALACHI 350.1.13.10 ity of [place] [facility] 4.2.7.2.686 Willy as [id number] [address] 2023-04-30 2023-04-30 [facility] 1.2.840.114 [id number] Univers 00:00:00 00:00:00 Cody RAMESH 350.1.13.10 i ty [place] [id number] [address] 2023-04-29 2023-04-29 Telephone [facility] 1.2.840.114 [id number] Univers 00:00:00 00:00:00 Cody RAMESH 350.1.13.10 i ty [place] [id number] [address] 2023-04-26 2023-04-26 [facility] 1.2.840.114 [id number] Univers 00:00:00 00:00:00 Cody RAMESH 350.1.13.10 i ty [place] [id number] [address] 2023-04-24 2023-04-24 Outpatient R [facility] [id number] Univers 12:30:00 12:30:00 CODY evangelista of [facility] 2023-04-17 2023-04-17 Telephone [facility] 1.2.840.114 [id number] Univers 00:00:00 00:00:00 Cody RAMESH 350.1.13.10 i ty [facility] 4.2.7.2.[place] [id number] [address] 2023-04-10 2023-04-10 Orders Doctor VELAZQUEZ 1.2.840.114 [id number] Univers 00:00:00 00:00:00 Only Unassigned, MALACHI 350.1.13.10 ity of [place] [facility] 4.2.7.2.686 Willy as [id number] [address] 2023-04-08 2023-04-08 Telephone [facility] 1.2.840.114 1 [id number] Univers 00:00:00 00:00:00 Cody RAMESH 350.1.13.10 i ty [place] [id number] [address] 2023-04-02 2023-04-[address] [facility] 1.2.840.114 [id number] Univers 00:00:00 00:00:00 Outreach Barbara RAMESH 350.1.13.10 ity [place] [id number] [address] 2023-03-26 2023-03-26 Orders Doctor CAROLINE 1.2.840.114 [id number] Univers 00:00:00 00:00:00 Only Unassigned, MALACHI 350.1.13.10 ity of Wing [facility] 4.2.7.2.686 Willy as [id number] [address] 2023-03-22 2023-03-22 Telephone [facility] 1.2.840.114 [id number] Univers 00:00:00 00:00:00 Cody RAMESH 350.1.13.10 i ty [place] [id number] [address] 2023-03-20 2023-03-20 Telephone [facility] 1.2.840.114 1 [id number] Univers 00:00:00 00:00:00 Cody RAMESH 350.1.13.10 i ty of [place] 4.2.7.2.686 [place] [id number] [address] 2023-03-13 2023-03-13 [facility] MOE Goldman 1.2.840.114 1 [id number] Univers 07:30:00 23:59:00 Encounter Franklin Modi 350.1.13.10 ity of [facility] 4.2.7.2.686 Willy as [id number] [facility] [address] 2023-03-13 2023-03-13 Outpatient R SUSI [facility] ACO [id number] Univers 00:00:00 23:59:00 FRANKLIN tonja [facility] 2023-03-12 2023-03-12 Outpatient R CARO [facility] [id number] Univers 11:45:00 14:34:22 CODY tonja [facility] 2023-03-12 2023-03-12 Retail Store Assistant 2, Adc Lab [facility] 1.2.840.114 [id number] Univers 11:45:00 14:34:22 Visit Cody Dwyer 350.1.13.10 ity of [place] 4.2.7.2.[place] [id number] [facility] 353 [facility] 2023-03-12 2023-03-12 Office [facility] 1.2.840.114 102 [id number] Univers 11:20:00 11:42:37 Visit Cody RAMESH 350.1.13.10 i ty of [place] 4.2.7.2.686 [place] [id number] [facility] 044 [facility] 2023-03-12 2023-03-12 Orders Doctor CAROLINE 1.2.840.114 [id number] Univers 00:00:00 00:00:00 Only Unassigned, MALACHI 350.1.13.10 ity of Wing [facility] 4.2.7.2.686 [place] as [id number] [facility] [address] [place] 2023-03-12 2023-03-12 Telephone [facility] 1.2.840.114 1 [id number] Univers 00:00:00 00:00:00 Cody RAMESH 350.1.13.10 i ty of [place] 4.2.7.2.686 [place] [id number] [facility] 044 [facility] 2023-03-07 2023-03-07 [facility] 1.2.840.114 1 [id number] Univers 00:00:00 00:00:00 Cody RAMESH 350.1.13.10 i ty of [place] 4.2.7.2.686 [place] [id number] Tx dical NAL 044 [facility] 2023-02-27 2023-02-27 Outpatient R [facility] 1044 [id number] Univers 00:00:00 00:00:00 CODY evangelista [facility] 2023-02-11 2023-02-11 Telephone [facility] 1.2.840.114 1 [id number] Univers 00:00:00 00:00:00 Cody RAMESH 350.1.13.10 i ty of [place] 4.2.7.2.686 [place] [phone] [facility] 231 [facility] 2023-02-07 2023-02-07 Outpatient R [facility] 1043 [id number] Univers 08:40:00 08:40:00 CODY evangelista [facility] 2023-01-29 2023-01-29 Refill [facility] 1.2.840.114 101 [id number] Univers 00:00:00 00:00:00 Cody RAMESH 350.1.13.10 i ty of [place] 4.2.7.2.686 [place] [id number] Tx dical NAL [address] [place] [address] 2023-01-28 2023-01-28 Telephone [facility] 1.2.840.114 1 [id number] Univers 00:00:00 00:00:00 Cody RAMESH 350.1.13.10 i ty of [facility] 4.2.7.2.686 [place] [phone] [place]x dical NAL 044 [facility] 2023-01-20 2023-01-20 Telephone [facility] 1.2.840.114 1 [id number] Univers 00:00:00 00:00:00 Cody RAMESH 350.1.13.10 i ty of [facility] 4.2.7.2.686 [place] [id number] [place] dical NAL 044 [facility] 2023-01-09 2023-01-09 Telephone [facility] 1.2.840.114 1 [id number] Univers 00:00:00 00:00:00 Cody RAMESH 350.1.13.10 i ty of [place] 4.2.7.2.686 [place] [phone] Tx dical NAL [address] [place] [address] 2023-01-02 2023-01-02 Refill [facility] 1.2.840.114 101 [id number] Univers 00:00:00 00:00:00 Cody RAMESH 350.1.13.10 i ty of [place] 4.2.7.2.686 [place] 457.5359894 Tx dicnv NAL [address] [place] [address] 2022-12-25 2022-12-25 Telephone [facility] 1.2.840.114 1 [id number] Univers 00:00:00 00:00:00 Cody RYAN 350.1.13.10 it y of [place] 4.2.7.2.686 [place]ly as VERONICA?BLEA [id number] [address] MEDICAL OFFICE [facility] 2022-12-18 2022-12-18 Telephone [facility] 1.2.840.114 1 [id number] Univers 00:00:00 00:00:00 Cody RAMESH 350.1.13.10 i ty of [place] 4.2.7.2.[place] [id number] T[place] dic[address] 2022-12-18 2022-12-18 Orders Doctor CAROLINE 1.2.840.114 [id number] Univers 00:00:00 00:00:00 Only Unassigned, MALACHI 350.1.13.10 ity of Wing [facility] 4.2.7.2.686 [place] [id number] [address] 2022-12-10 2022-12-10 Telephone [facility] 1.2.840.114 1 [id number] Univers 00:00:00 00:00:00 Cody RAMESH 350.1.13.10 i ty of [place] 4.2.7.2.686 [place] [id number] Tx dical NAL [address] [place] [address] 2022-12-07 2022-12-07 Outpatient R [facility] 1043 [id number] Univers 08:32:14 23:59:00 CODY tonja [facility] 2022-12-07 2022-12-07 [facility] 1.2.840.114 99 [id number] [facility] 08:32:14 23:59:00 Encounter Cody RAMESH 350.1.13.10 ity of [facility] 4.2.7.2.686 [place] [id number] [address] 2022-11-27 2022-11-27 Refill [facility] 1.2.840.114 100 [id number] Univers 00:00:00 00:00:00 Cody RAMESH 350.1.13.10 i ty of [facility] 4.2.7.2.686 [place] [id number] Tx dical NAL 044 [facility] 2022-11-26 2022-11-26 Ancillary Arnaldo Stewart [facility] 1.2.840. 114 [id number] Univers 13:45:00 14:30:57 Visit Gurpreet Ty 350.1.13.10 ity of [facility] 4.2.7.2.686 [place] [id number] [place]x dical NAL 179 [facility] 2022-11-22 2022-11-22 Outpatient R [facility] 1043 [id number] Univers 14:30:00 15:53:14 CODY tonja [facility] 2022-11-22 2022-11-22 Ancillary Yaquelin Mari [facility] 1 .2.840.114 [id number] Univers 14:30:00 15:53:14 Visit Henri Ortiz 350.1.13.10 ity of [place] 4.2.7.2.686 [place] [id number] Tx dical NAL 179 [facility] 2022-11-09 2022-11-09 Telephone [facility] 1.2.840.114 9 [id number] Univers 00:00:00 00:00:00 Cody RAMESH 350.1.13.10 i ty of [place] 4.2.7.2.686 [place] [id number] Tx dical NAL 044 [facility] 2022-11-08 2022-11-08 Outpatient R CARO [facility] 1043 [id number] Univers 08:20:00 09:06:29 PETER ity of [facility] 2022-11-08 2022-11-08 Office [facility] 1.2.840.114 [id number] [id number] Univers 08:20:00 09:06:29 Visit Cody RAMESH 350.1.13.10 i ty of [facility] 4.2.7.2.686 [place] [phone] Tx dical NAL 044 [facility] 2022-11-08 2022-11-08 Retail Store Assistant Brent, Reginald Lab Main [facility] 1.2.8 40.114 [id number] Univers 08:45:00 09:00:00 Visit Cody Dwyer 350.1.13.10 ity of [place] 4.2.7.2.686 [place] [id number] Tx dical NAL 353 [facility] 2022-11-08 2022-11-08 Office [facility] 1.2.840.114 [id number] Univers 08:00:00 08:20:00 Visit Cody RAMESH 350.1.13.10 i ty of [facility] 4.2.7.2.686 [place] [id number] Tx dical NAL 044 [facility] 2022-11-01 2022-11-01 Refill [facility] 1.2.840.114 [id number] Univers 00:00:00 00:00:00 Cody RAMESH 350.1.13.10 i ty of [facility] 4.2.7.2.686 [place] [id number] Tx dical NAL 044 [facility] 2022-10-31 2022-10-31 Telephone Kim RODRIGES 1.2.840.114 [id number] Univers 00:00:00 00:00:00 , Awa RICHMOND 350.1.13.10 ity of [place] 4.2.7.2.686 [place] [phone] [address] 2022-10-31 2022-10-31 Telephone Kim ESCOBEDOKaye 1.2.840.114 [id number] Univers 00:00:00 00:00:00 , Awa RICHMOND 350.1.13.10 ity of [place] 4.2.7.2.686 [place] [id number] [address] 2022-10-16 2022-10-16 Telephone [facility] 1.2.840.114 9 [id number] Univers 00:00:00 00:00:00 Cody RAMESH 350.1.13.10 i ty of [place] 4.2.7.2.686 [place] [id number] [address] 2022-10-11 2022-10-11 Emergency X [facility] ERT [id number] Univers 13:53:00 17:14:00 PEDRO tonja [facility] 2022-10-11 2022-10-11 Emergency [facility] 1.2.207.371 [id number] Univers 13:53:00 17:14:00 Pedro RAMESH 350.1.13.10 i ty of [place] 4.2.7.2.686 [place] [id number] [address] 2022-10-08 2022-10-08 Telephone [facility] 1.2.840.114 9 [id number] Univers 00:00:00 00:00:00 Cody RAMESH 350.1.13.10 i ty of [place] 4.2.7.2.686 [place] [id number] [address] 2022-09-17 2022-09-[address] [facility] 1.2.840.114 [id number] Univers 08:48:00 09:19:00 , Serina RAMESH 350.1.13.10 i ty of [place] 4.2.7.2.686 [place] [id number] [address] 2022-09-17 2022-09-17 Bang DE [place] [facility] [id number] Univers 07:41:51 08:47:00 TANISHA evangelista o soledad [facility] 2022-09-17 2022-09-17 Outpatient R DANIEL [facility] ERT [id number] Univers 07:41:51 08:47:00 TANISHA rowe [facility] 2022-09-17 2022-09-17 [facility]phone [facility] 1.2.840.114 9 [id number] Univers 00:00:00 00:00:00 Cody RAMESH 350.1.13.10 i ty of [place] 4.2.7.2.686 [place] 151.3518917 [place] dic[address] 2022-09-13 2022-09-13 Orders Doctor CAROLINE 1.2.840.114 [id number] Univers 00:00:00 00:00:00 Only Unassigned, MALACHI 350.1.13.10 ity of Wing [facility] 4.2.7.2.686 [place] as [id number] [address] 2022-09-04 2022-09-04 Outpatient R CASTILLO [facility] [id number] Univers 08:00:00 08:00:00 VILLA evangelista [facility] 2022-08-08 2022-08-08 Outpatient R CARO [facility] [id number] [id number] Univers 08:20:00 09:11:24 CODY evangelista [facility] 2022-08-08 2022-08-08 Office [facility] 1.2.840.114 [id number] Univers 08:20:00 09:11:24 Visit Cody RAMESH 350.1.13.10 i ty of [facility] 4.2.7.2.686 [place] 401.5677130 [place] dic[address] 2022-07-17 2022-07-17 Telephone [facility] 1.2.840.114 9 [id number] Univers 00:00:00 00:00:00 Cody RAMESH 350.1.13.10 i ty of [facility] 4.2.7.2.686 [place] [id number] Tx dical NAL [address] [place] [address] 2022-07-04 2022-07-04 Outpatient R [facility], [facility] [id number] Univers 09:00:00 09:14:46 TANISHA rowe [facility] 2022-07-04 2022-07-04 Office [facility] 1.2.840.114 [id number] Univers 09:00:00 09:14:46 Visit Tanisha RAMESH 350.1.13.10 ity of [place] 4.2.7.2.686 [place] [id number] Tx dical NAL 059 [facility] 2022-07-04 2022-07-04 Outpatient R [facility], [facility] [id number] Univers 09:00:00 09:14:46 TANISHA rowe [facility] 2022-07-04 2022-07-04 Outpatient R [facility], [facility] [id number] Univers 09:00:00 09:00:00 TANISHA rowe [facility] 2022-06-30 2022-06-30 [facility] 1.2.840.114 [id number] Univers 00:00:00 00:00:00 Cody RAMESH 350.1.13.10 i ty of [place] 4.2.7.2.686 [place] [id number] Tx dical NAL 044 [facility] 2022-06-27 2022-06-27 Telephone [facility] 1.2.840.114 9 [id number] Univers 00:00:00 00:00:00 Cody RAMESH 350.1.13.10 i ty of [place] 4.2.7.2.686 [place] 317.0251868 Tx dical NAL 044 [facility] 2022-06-27 2022-06-27 Orders Doctor CAROLINE 1.2.840.114 [id number] Univers 00:00:00 00:00:00 Only Unassigned, MALACHI 350.1.13.10 ity of Wing [facility] 4.2.7.2.686 [place] as [id number] [address] 2022-06-20 2022-06-20 Telephone [facility] 1.2.840.114 9 [id number] Univers 00:00:00 00:00:00 Cody RAMESH 350.1.13.10 i ty of [facility] 4.2.7.2.686 [place] 764.4086109 Tx dical NAL 231 [facility] 2022-06-12 2022-06-12 Telephone [facility] 1.2.840.114 9 [id number] Univers 00:00:00 00:00:00 Cody RAMESH 350.1.13.10 i ty of [facility] 4.2.7.2.686 [place] 542.5099902 Tx dical NAL 231 [facility] 2022-06-12 2022-06-12 Telephone [facility] 1.2.840.114 9 [id number] Univers 00:00:00 00:00:00 Cody RAMESH 350.1.13.10 i ty of [facility] 4.2.7.2.686 [place] [id number] Tx dical NAL 231 [facility] 2022-05-22 2022-05-22 Outpatient [facility] 97 [facility] 09:22:00 09:22:00 _ANN 0719 [facility] 2022-05-12 2022-05-12 [facility] 1.2.840.114 9 [id number] Univers 00:00:00 00:00:00 Cody RAMESH 350.1.13.10 i ty of [facility] 4.2.7.2.686 [place] [id number] Tx dical NAL 044 [facility] 2022-05-08 2022-05-08 Retail Store Assistant 2, Adc Lab [facility] 1.2.840.114 [id number] Univers 09:30:00 09:45:00 Visit Cody Dwyer 350.1.13.10 ity of [facility] 4.2.7.2.686 [place] 122.5296469 Tx dical NAL 353 [facility] 2022-05-08 2022-05-08 Outpatient R CARO [facility] 1040 [id number] Univers 08:40:00 09:26:39 CODY evangelista [facility] 2022-05-08 2022-05-08 [facility] 1.2.840.114 [id number] [facility] 08:40:00 09:26:39 Visit Cody RAMESH 350.1.13.10 i ty of [facility] 4.2.7.2.686 [place] [id number] Tx dical NAL 044 [facility] 2022-05-04 2022-05-04 [facility] 1.2.840.114 [id number] Univers 00:00:00 00:00:00 Cody RAMESH 350.1.13.10 i ty of [facility] 4.2.7.2.686 [place] 493.7522312 Tx dical NAL 044 [facility] 2022-04-26 2022-04-26 Telephone [facility] 1.2.840.114 [id number] Univers 00:00:00 00:00:00 [place] PRIMARY 350.1.13.10 ity of [place] 4.2.7.2.[place] 918.2899889 [place]x dical [address] [place] 2022-04-18 2022-04-18 Telephone CAROLINE Chong 1.2.840.114 [id number] [id number] Univers 00:00:00 00:00:00 [place] L[place] 350.1.13.10 ity [facility] 4.2.7.2.686 [place] 793.7636489 [address] 2022-04-17 2022-04-17 Outpatient [facility] [id number] Univers 14:49:43 23:59:00 VILLA lealryanne [facility] 2022-04-17 2022-04-17 Outpatient R [facility] [id number] Univers 14:49:43 23:59:00 VILLA evangelista [facility] 2022-04-17 2022-04-17 [facility] 1.2.615.260 [id number] Univers 14:49:43 23:59:00 Encounter [place] PRIMARY 350.1.13.10 ity of [place] 4[place]2.7.2.[place] [id number] Tx dical [address] [place] 2022-04-17 2022-04-17 Outpatient R CASTILLO [facility] [id number] Univers 14:49:43 23:59:00 VILLA evangelista [facility] 2022-04-17 2022-04-17 Retail Store Assistant Pcp-Lab [facility] 1.2.840.114 [id number] Univers 16:00:00 16:00:00 Visit [place] PRIMARY 350.1.13.10 ity of [place] 4.2.7.2.[place] 505.7853403 Tx dical [address] [place] 2022-04-17 2022-04-[address] [facility] 1.2.840.114 [id number] Univers 15:00:00 15:00:00 Visit [place] PRIMARY 350.1.13.10 ity of [place] 4.2.7.2.[place] [id number] Tx dicdanisha [address] [place] 2022-04-17 2022-04-17 Outpatient R CASTILLO [facility] [id number] Univers 14:49:43 14:49:43 VILLA [facility] 2022-04-17 2022-04-17 Outpatient R CASTILLO [facility] [id number] Univers 15:00:00 14:45:12 VILLA [facility] 2022-04-12 2022-04-12 Outpatient R SHUKRI [facility] [id number] Univers 10:00:00 10:00:00 ITZ [facility] 2022-04-12 2022-04-12 Office [facility] 1.2.840.114 [id number] Univers 10:00:00 10:00:00 Visit Itz [facility] 350.1.13.10 it y of [place] 4.2.7.2.686 Willy as VERONICA?BLEA 472.6702317 Tx dical [address] MEDICAL OFFICE [facility] 2022-04-12 2022-04-12 [facility] [id number] Univers 10:00:00 09:35:02 ITZ [facility] 2022-04-05 2022-04-05 Outpatient R SHUKRI [facility] [id number] Univers 09:30:00 09:30:00 ITZ ryanne [facility] 2022-04-03 2022-04-03 Retail Store Assistant 2, Adc Lab [facility] 1.2.840.114 [id number] Univers 16:15:00 16:16:43 Visit Cody Dwyer 350.1.13.10 ity david [place].7.2.686 [place] 194.6587075 Tx dicnv NAL 353 [facility] 2022-04-03 2022-04-03 Outpatient R JAMAALMARINAMILADIS [facility] [id number] Univers 16:15:00 16:15:00 CODY tonja [facility] 2022-04-03 2022-04-[address] [facility] 1.2.840.114 [id number] Univers 14:40:00 16:07:34 Visit Cody RAMESH 350.1.13.10 i ty david [place] 4.2.7.2.686 [place] [id number] [facility] NAL 044 [facility] 2022-04-03 2022-04-03 Outpatient R CARO [facility] 1039 [id number] Univers 14:40:00 16:07:34 CODY ryanne [facility] 2022-04-03 2022-04-03 Outpatient R JAMAALMARINAMILADIS [facility] [id number] [id number] Univers 14:40:00 14:40:00 CODY tonja [facility] 2022-03-29 2022-03-29 Retail Store Assistant Lab, Ang - Db [facility] 1.2.840.1 14 [id number] Univers 10:15:00 10:30:00 Visit Itz Watt [facility] 350.1.13.10 itDesi 4.2.7.2.686 [place] VERONICA?BLEA 215.1803273 Tx dical KNEY 353 [facility] OFFICE BUILDING 2022-03-29 2022-03-29 Outpatient R SHUKRI [facility] [id number] Univers 09:30:00 09:59:43 ITZ ryanne [facility] 2022-03-29 2022-03-29 Office [facility] 1.2.840.114 [id number] Univers 09:30:00 09:59:43 Visit Itz [facility] 350.1.13.10 it y [facility] 4.2.7.2.686 [place] as VERONICA?BLEA 119.8280766 Tx aurora MILLER [address] [place] [address] 2022-03-29 2022-03-29 Outpatient R SHUKRI [facility] [id number] Univers 09:30:00 09:59:43 ITZ evangelista [facility] 2022-03-23 2022-03-23 Outpatient R [facility]ALMARINAMIL[facility] [id number] Univers 11:00:00 11:00:00 CODY tonja [facility] 2022-03-23 2022-03-23 [facility]phone [facility] 1.2.840.114 9 [id number] Univers 00:00:00 00:00:00 Cody GADIEL 350.1.13.10 i ty of [place] 4.2.7.2.[place] 100.9256995 Tx aurora PABLO [address] [place] [address] 2022-03-21 2022-03-21 Telephone [facility] 1.2.248.803 [id number] Univers 00:00:00 00:00:00 Itz Brooks [facility] 350.1.13.10 it y of [facility] 4.2.7.2.686 [place]ly as VERONICA?BLEA [id number] Tx aurora MILLER [address] [place] [address] 2022-03-19 2022-03-19 Patient [facility] 1.2.840.114 [id number] Univers 00:00:00 00:00:00 Secure Msg Cody GADIEL 350.1.13.10 ity of [facility] 4.2.7.2.686 [place] 198.3757539 Tx aurora NAL [address] [place] [address] 2022-03-19 2022-03-19 Patient [facility] 1.2.840.114 [id number] Univers 00:00:00 00:00:00 Secure Msg Cody GADIEL 350.1.13.10 ity [facility] 4[place]2.[place].2.[place] [phone] [place] dical NAL 044 [facility] 2022-03-19 2022-03-19 Patient [facility] 1.2.840.114 [id number] Univers 00:00:00 00:00:00 Secure Msg Cody RAMESH 350.1.13.10 ity [facility] 4.2.[place].2.[place] [phone] [place] dical NAL 044 [facility] 2022-03-17 2022-03-17 Refill [facility] 1.2.840.114 [id number] Univers 00:00:00 00:00:00 Cody RAMESH 350.1.13.10 i ty [facility] 4.2.7.2.[place] [phone] [place] NAL 231 [facility] 2022-03-17 2022-03-17 Telephone [facility] 1.2.840.114 [id number] Univers 00:00:00 00:00:00 Cody RAMESH 350.1.13.10 i ty [facility] 4.2.7.2.[place] [phone] [place] NAL 044 [facility] 2022-03-15 2022-03-15 Telephone [facility] 1.2.840.114 [id number] Univers 00:00:00 00:00:00 Cody RAMESH 350.1.13.10 i ty [facility] 4.2.7.2.[place] [phone] [place] dical NAL 044 [facility] 2022-03-15 2022-03-15 Refill [facility] 1.2.840.114 [id number] Univers 00:00:00 00:00:00 Cody RAMESH 350.1.13.10 i ty [facility] 4.2.7.2.[place] [phone] [place] dical NAL 044 [facility] 2022-03-14 2022-03-14 Refill [facility] 1.2.840.114 [id number] Univers 00:00:00 00:00:00 Cody RAMESH 350.1.13.10 i ty of [place] 4.2.7.2.686 [place] MANAV [phone] [place] Mata [facility] 2022-03-14 2022-03-14 Telephone [facility] 1.2.292.093 [id number] Univers 00:00:00 00:00:00 Itz S HEALTH 350.1.13.10 it y of [place] 4.2.7.2.686 Willy as VERONICA?BLEA [phone] [place] aur[place] MILLER 198 [facility] OFFICE [facility] 2022-03-13 2022-03-13 Outpatient Arm[facility] [id number] Univers 15:30:00 16:55:46 [facility] 2022-03-13 2022-03-13 Office [facility] 1.2.840.114 [id number] Univers 15:30:00 16:55:46 Visit [facility] 350.1.13.10 it y of [place] 4.2.7.2.686 Willy as VERONICA?BLEA [phone] [place] MILLER 198 [facility] 2022-03-13 2022-03-13 Outpatient Armida [facility] [id number] Univers 15:30:00 16:55:46 [facility] 2022-03-13 2022-03-13 Outpatient Armida [facility] [id number] Univers 15:30:00 15:30:00 [facility] 2022-03-05 2022-03-05 Telephone [facility] 1.2.438.905 [id number] Univers 00:00:00 00:00:00 [facility] HEALTH 350.1.13.10 it y of [place] 4.2.7.2.686 Willy as VERONICA?BLEA [phone] Tx aurora MILLER 198 [facility] 2022-03-03 2022-03-03 Nurse CAROLINE Arias 1.2.840.114 [id number] Univers 00:00:00 00:00:00 Triage Robyn LY 350.1.13.10 it y of [facility] 4.2.7.2.686 Willy as [phone] [address] 2022-02-28 2022-02-28 Telephone [facility] 1.2.840.114 [id number] Univers 00:00:00 00:00:00 Cody RAMESH 350.1.13.10 i ty of [facility] 4.2.7.2.686 [place] [phone] T[place] dic[address] 2022-02-27 2022-02-27 Outpatient Armida [facility] [id number] Univers 16:00:00 17:14:05 [facility] 2022-02-27 2022-02-27 Office [facility] 1.2.840.114 [id number] Univers 16:00:00 17:14:05 Visit [facility] 350.1.13.10 it y of [place] 4.2.7.2.686 Willy as VERONICA?BLEA [phone] [address] OFFICE [facility] 2022-02-27 2022-02-27 Outpatient Armida [facility] [id number] Univers 16:00:00 17:14:05 [facility] 2022-02-27 2022-02-27 Outpatient Armida [facility] [id number] Univers 16:00:00 16:00:00 [facility] 2022-02-27 2022-02-27 Telephone [facility] 1.2.840.114 [id number] Univers 00:00:00 00:00:00 Cody RAMESH 350.1.13.10 i ty of [place].2.7.2.[place] [phone] [place] dic[address] 2022-02-27 2022-02-27 Telephone [facility] 1.2.840.114 [id number] Univers 00:00:00 00:00:00 Cody RAMESH 350.1.13.10 i ty of [place] 4.2.7.2.686 [place] [phone] Tx dical NAL [address] [place] [address] 2022-02-21 2022-02-21 [facility]phone [facility] 1.2.436.807 [id number] Univers 00:00:00 00:00:00 Itz S HEALTH 350.1.13.10 it y of [place] 4.2.7.2.686 Willy as VERONICA?BLEA [phone] Tx aurora MILLER 198 [facility] 2022-02-19 2022-02-19 Orders Doctor CAROLINE 1.2.840.114 [id number] Univers 00:00:00 00:00:00 Only Unassigned, MALACHI 350.1.13.10 ity of Wing [facility] 4.2.7.2.686 Willy as [phone] [address] 2022-02-15 2022-02-15 Telephone [facility] 1.2.840.114 [id number] Univers 00:00:00 00:00:00 Gurpreet L HEALTH 350.1.13.10 it y of [place] 4.2.7.2.686 Willy as VERONICA?BLEA [phone] Tx aurora MILLER 198 [facility] 2022-02-09 2022-02-09 Outpatient R CARO [facility] [id number] Univers 11:00:00 11:00:00 COYD ryanne [facility] 2022-02-09 2022-02-09 Outpatient R CARO [facility] [id number] [id number] Univers 11:00:00 11:00:00 CODY ryanne [facility] 2022-02-09 2022-02-09 Outpatient R CARO [facility] [id number] [id number] Univers 11:00:00 11:00:00 CODY ryanne [facility] 2022-02-08 2022-02-08 Imm/Inj Vaccine, Adc Family Medicine [facility] 1.2.840.114 [id number] Univers 15:00:00 15:10:00 Visit Rhett Cheema 350.1.13 .10 ity of [place].7.2.[place] [phone] Tx dical NAL 044 [facility] 2022-02-08 2022-02-08 Outpatient R ANETTE [facility] [id number] Univers 15:00:00 15:00:00 RHETT evangelista [facility] 2022-01-31 2022-01-[address] [facility] 1.2.840.114 [id number] Univers 00:00:00 00:00:00 Gurpreet RYAN 350.1.13.10 it y of [place] 4.2.7.2.686 Willy as VERONICA?BLEA [phone] Tx aurora MILLER [address] [place] [address] MEDICAL OFFICE [facility] 2022-01-29 2022-01-29 Outpatient R MELONY [facility] [id number] Univers 14:45:00 15:31:55 GURPREET evangelista [facility] 2022-01-29 2022-01-[address] [facility] 1.2.840.114 [id number] Univers 00:00:00 00:00:00 Gurpreet RYAN 350.1.13.10 it y of [place] 4.2.7.2.686 Willy as VERONICA?BLEA [phone] Tx aurora MILLER [address] [place] [address] OFFICE [facility] 2022-01-26 2022-01-[address] [facility] 1.2.840.114 [id number] Univers 00:00:00 00:00:00 Gurpreet RYAN 350.1.13.10 it y of [place] 4.2.7.2.686 Willy as VERONICA?BLEA [phone] Tx aurora MILLER [address] [place] [address] OFFICE [facility] 2022-01-22 2022-01-22 Outpatient R TY, [facility] [id number] Univers 14:45:00 15:17:19 GURPREET evangelista [facility] 2022-01-22 2022-01-22 Office Itz Watt [facility] 1.2.840.114 [id number] Univers 14:45:00 15:17:19 Visit Gurpreet Ty 350.1.13.10 ity of [place] 4.2.7.2.686 Willy as VERONICA?BLEA [id number] Tx aurora MILLER [address] [place] [address] OFFICE [facility] 2022-01-22 2022-01-22 Outpatient R TY, [facility] [id number] Univers 14:45:00 15:17:19 GURPREET itryanne [facility] 2022-01-22 2022-01-22 Office Watt Itz Brooks [facility] 1.2.840.114 [id number] Univers 14:45:00 15:17:19 Visit Gurpreet Ty [employer] 350.1.13.10 ity of [place] 4.2.7.2.686 Willy as VERONICA?BLEA [phone] Tx aurora MILLER [address] [place] [address] OFFICE [facility] 2022-01-22 2022-01-22 Orders Doctor CAROLINE 1.2.840.114 [id number] Univers 00:00:00 00:00:00 Only Unassigned, MALACHI 350.1.13.10 ity of Wing [facility] 4.2.7.2.686 Willy as [id number] [address] 2022-01-15 2022-01-[address] [facility] 1.2.840.114 [id number] Univers 13:30:00 13:45:00 Visit Itz Brooks [facility] 350.1.13.10 it y of [place] 4.2.7.2.686 Willy as VERONICA?BLEA [phone] Tx aurora MILLER [address] [place] [address] 2022-01-15 2022-01-15 Outpatient R SHUKRI [facility] [id number] Univers 13:30:00 13:30:00 ITZ ryanne [facility] 2022-01-10 2022-01-[address] [facility] 1.2.840.114 [id number] Univers 00:00:00 00:00:00 Gurpreet Guaman [employer] 350.1.13.10 it y of [place] 4.2.7.2.686 Willy as VERONICA?BLEA [phone] Tx aurora MILLER [address] [place] [address] OFFICE [facility] 2022-01-08 2022-01-[address] [facility] 1.2.840.114 [id number] Univers 00:00:00 00:00:00 Gurpreet Guaman [employer] 350.1.13.10 it y of [place] 4.2.7.2.686 Willy as VERONICA?BLEA [phone] Tx aurora MILLER [address] [place] [address] OFFICE [facility] 2021-12-28 2021-12-28 Refill [facility] 1.2.840.114 [id number] Univers 00:00:00 00:00:00 Nelson RAMESH 350.1.13.10 i ty of [place].2.7.2.686 [place] [phone] Tx dical NAL 044 [facility] 2021-12-26 2021-12-26 Telephone [facility] 1.2.840.114 [id number] Univers 00:00:00 00:00:00 [facility] HEALTH 350.1.13.10 it y of [place] 4.2.7.2.686 Willy as SPECIALTI [id number] Tx dical ES 198 [facility] 2021-12-20 2021-12-20 Patient [facility] 1.2.840.114 [id number] Univers 00:00:00 00:00:00 Secure Msg Cody RAMESH 350.1.13.10 ity of [place] 4.2.7.2.686 [place] [phone] Tx dical NAL 044 [facility] 2021-12-20 2021-12-20 Telephone [facility] 1.2.840.114 [id number] Univers 00:00:00 00:00:00 Cody RAMESH 350.1.13.10 i ty of [place] 4.2.7.2.686 [place] [id number] Tx dical NAL 231 [facility] 2021-12-18 2021-12-18 Telephone [facility] 1.2.149.261 [id number] Univers 00:00:00 00:00:00 Itz S HEALTH 350.1.13.10 it y of [place] 4.2.7.2.686 Willy as VERONICA?BLEA [phone] Tx aurora MILLER 198 [facility] 2021-12-15 2021-12-15 Outpatient R [facility] [id number] Univers 09:30:00 23:59:00 GURPREET evangelista of [facility] 2021-12-15 2021-12-15 [facility] 1.2.840.114 [id number] Univers 09:30:00 23:59:00 Encounter Gurpreet RYAN 350.1.13.10 ity of [place] 4.2.7.2.686 Willy as VERONICA?BLEA [phone] Me aurora MILLER 809 [facility] OFFICE [facility] 2021-12-15 2021-12-15 Retail Store Assistant Lab, [facility] 1.2.840.1 14 [id number] Univers 10:45:00 11:00:00 Visit Gurpreet Ty 350.1.13.10 ity of [place] 4.2.7.2.686 Willy as VERONICA?BLEA [phone] Tx aurora MILLER 353 [facility] 2021-12-15 2021-12-15 Outpatient R [facility] [id number] Univers 10:45:00 10:48:46 GURPREET ryanne [facility] 2021-12-15 2021-12-15 Outpatient R [facility] [id number] Univers 09:00:00 09:59:52 GURPREET ryanne [facility] 2021-12-15 2021-12-15 [facility] 1.2.245.056 [id number] Univers 09:00:00 09:59:52 Visit Gurpreet RYAN 350.1.13.10 it y of [place] 4.2.7.2.686 Willy as VERONICA?BLEA [phone] Tx aurora MILLER 198 [facility] OFFICE [facility] 2021-12-15 2021-12-15 Outpatient R [facility] [id number] Univers 09:00:00 09:59:52 GURPREET ryanne [facility] 2021-12-15 2021-12-15 [facility] 1.2.804.122 [id number] Univers 09:00:00 09:59:52 Visit Gurpreet RYAN 350.1.13.10 it y of [place] 4.2.7.2.686 Willy as VERONICA?BLEA [phone] Tx aurora MILLER 198 [facility] OFFICE [facility] 2021-12-15 2021-12-15 Outpatient R [facility] [id number] Univers 09:00:00 09:00:00 GURPREET evangelista [facility] 2021-12-15 2021-12-15 Outpatient R MELONY [facility] [id number] Univers 09:00:00 09:00:00 GURPREET evangelista [facility] 2021-12-08 2021-12-08 Outpatient R [facility] [id number] Univers 09:00:00 11:08:33 CODY evangelista [facility] 2021-12-08 2021-12-08 Telemedici [facility] 1.2.840.114 [id number] [facility] 09:00:00 11:08:33 ne Visit Cody RAMESH 350.1.13.10 ity of [place].2.7.2.686 [place] [id number] [address] 2021-12-08 2021-12-08 Outpatient R [facility] [id number] Univers 09:00:00 11:08:33 CODY evangelista [facility] 2021-12-08 2021-12-08 Outpatient R [facility] [id number] Univers 09:00:00 11:08:33 CODY evangelista [facility] 2021-12-08 2021-12-08 Telephone [facility] .2.840.114 9 [id number] Univers 00:00:00 00:00:00 Cody RAMESH 350.1.13.10 i ty of [place] 4.2.7.2.686 [place] [phone] [address] 2021-12-08 2021-12-08 [facility]phone [facility] .2.840.114 9 [id number] Univers 00:00:00 00:00:00 Cody RAMESH 350.1.13.10 i ty of [place] 4.2.7.2.686 [place] [phone] [address] 2021-12-06 2021-12-06 [facility] .2.840.114 [id number] Univers 00:00:00 00:00:00 Cody RAMESH 350.1.13.10 i ty of [facility] 4.2.7.2.686 [place] [phone] Tx aurora PABLO 044 [facility] 2021-11-24 2021-11-24 Outpatient R TY [facility] [id number] Univers 09:45:00 09:45:00 GURPREET ryanne [facility] 2021-11-24 2021-11-24 [facility] 1.2.623.850 [id number] Univers 09:45:00 09:45:00 Visit Gurpreet [facility] 350.1.13.10 it y of [facility] 4.2.7.2.686 Willy as VERONICA?BLEA [phone] Tx aurora MILLER 198 [facility] 2021-11-24 2021-11-24 Outpatient R [facility] [id number] Univers 09:45:00 09:43:13 [facility] 2021-11-24 2021-11-24 Outpatient R [facility] [id number] Univers 09:45:00 09:43:13 [facility] 2021-11-14 2021-11-14 Telephone [facility] 1.2.840.114 [id number] Univers 00:00:00 00:00:00 [facility] 350.1.13.10 it y of [facility] 4.2.7.2.686 Willy as PROFESSIO [phone] Tx dinanv SAMY [address] [place] [address] ONE 2021-11-09 2021-11-09 Emergency X PADMINI [facility] ERT [id number] Univers 10:45:00 12:02:00 MAXIMILIAN ity [facility] 2021-11-09 2021-11-09 Emergency [facility] 1.2.439.049 [id number] Univers 10:45:00 12:02:00 Maximilian S GADIEL 350.1.13.10 i ty of [place] 4.2.7.2.686 [place] [id number] [facility] [address] [place] 2021-11-09 2021-11-09 Emergency X [facility] ERT [id number] Univers 10:45:00 12:02:00 MAXIMILIAN evangelista [facility] 2021-11-09 2021-11-09 Telephone [facility] 1.2.840.114 [id number] Univers 00:00:00 00:00:00 Cody RAMESH 350.1.13.10 i ty of [place] 4.2.7.2.686 [place] [id number] Tx dical [address] 2021-11-07 2021-11-07 Outpatient R [facility] [id number] Univers 11:30:00 11:30:00 CODY evangelista [facility] 2021-11-07 2021-11-07 Retail Store Assistant 2, Adc Lab [facility] 1.2.840.114 [id number] Univers 11:30:00 11:30:00 Visit Cody Dwyer 350.1.13.10 ity of [facility] 4.2.7.2.686 [place] [phone] Tx dicdanisha COUNT INCLUDES THE [facility] 353 [facility] 2021-11-07 2021-11-07 Office [facility] 1.2.840.114 [id number] Univers 11:00:00 11:00:00 Visit Cody RAMESH 350.1.13.10 i ty of [place] 4.2.7.2.686 [place] [id number] Tx dicdanisha [address] 2021-11-07 2021-11-07 Outpatient R [facility] [id number] Univers 11:00:00 10:19:29 CODY lealryanne [facility] 2021-10-13 2021-10-13 Outpatient R [facility] [id number] Univers 08:30:00 09:17:02 GURPREET lealryanne [facility] 2021-10-13 2021-10-13 Office [facility] 1.2.480.151 [id number] Univers 08:30:00 09:17:02 Visit Gurpreet [facility] 350.1.13.10 it y of [place] 4.2.7.2.686 Willy as VERONICA?BLEA [phone] Tx dical KNEY [address] [place] MEDICAL OFFICE BUILDING 2021-10-13 2021-10-13 Outpatient R [facility] [id number] Univers 08:30:00 09:17:02 [facility] 2021-10-13 2021-10-13 Outpatient R [facility] [id number] Univers 08:30:00 09:17:02 [facility] 2021-10-11 2021-10-11 Outpatient R [facility] [id number] Univers 13:30:00 13:30:00 [facility] 2021-10-11 2021-10-11 Outpatient R [facility] [id number] Univers 13:30:00 13:30:00 [facility] 2021-10-06 2021-10-06 [facility] 1.2.840.114 [id number] Univers 00:00:00 00:00:00 Cody RAMESH 350.1.13.10 i ty [facility] 4.2.7.2.686 [facility] [phone] Tx aurora PABLO 044 [facility] 2021-09-29 2021-09-29 Emergency X [facility] ERT [id number] Univers 00:44:00 02:37:00 MELITA [facility] 2021-09-29 2021-09-29 Emergency [facility] 1.2.840.114 [id number] Univers 00:44:00 02:37:00 Melita RAMESH 350.1.13.10 i ty [facility] 4.2.7.2.686 [facility] ANSON [phone] [facility] [address] [place] 2021-09-11 2021-09-11 Outpatient [facility] 1035 [id number] Univers 10:37:44 23:59:00 CODY ryanne [facility] 2021-09-11 2021-09-11 [facility] 1.2.840.114 [id number] Univers 10:37:44 23:59:00 Encounter Cody RAMESH 350.1.13.10 ity of [place].2.[place].2.[place] [id number] [facility] [address] 2021-09-11 2021-09-11 Refill [facility] 1.2.840.114 [id number] Univers 00:00:00 00:00:00 Coyd RAMESH 350.1.13.10 i ty of [place] 4.2.7.2.686 [place] [phone] Tx dical NAL [address] [place] [address] 2021-08-29 2021-08-29 Orders Doctor CAROLINE 1.2.840.114 [id number] Univers 00:00:00 00:00:00 Only Unassigned, MALACHI 350.1.13.10 ity of Wing [facility] 4.2.7.2.686 Willy as [phone] [address] 2021-08-28 2021-08-28 Telephone [facility] 1.2.840.114 [id number] Univers 00:00:00 00:00:00 Cody Ramesh 350.1.13.10 i ty of [place] 4.2.7.2.686 [place] [phone] Tx dicnv nal [address] [place] [address] 2021-08-28 2021-08-28 Telephone [facility] 1.2.840.114 [id number] Univers 00:00:00 00:00:00 Cody Ramesh 350.1.13.10 i ty of [place] 4.2.7.2.686 [place] [phone] Tx dicnv nal [address] [place] [address] 2021-08-28 2021-08-28 Orders Doctor CAROLINE 1.2.840.114 [id number] Univers 00:00:00 00:00:00 Only Unassigned, MALACHI 350.1.13.10 ity of Wing [facility] 4.2.7.2.686 Willy as [id number] [address] 2021-08-24 2021-08-24 Telemedici [facility] 1.2.840.114 [id number] Univers 07:52:00 11:41:34 ne Visit Cody Ramesh 350.1.13.10 ity of [place] 4[place]2.7.2.[place] [phone] [address] 2021-08-24 2021-08-24 Outpatient R [facility] [id number] Univers 09:00:00 09:00:00 CODY ity of [facility] 2021-08-24 2021-08-24 Telephone [facility] 1.2.840.114 [id number] Univers 00:00:00 00:00:00 Cody Ramesh 350.1.13.10 i ty of [place] 4[place]2.7.2.[place] [phone] [address] 2021-08-21 2021-08-21 Orders Doctor CAROLINE 1.2.840.114 [id number] Univers 00:00:00 00:00:00 Only Unassigned, MALACHI 350.1.13.10 ity of Wing [facility] 4.2.7.2.686 Willy as [id number] [address] 2021-08-21 2021-08-21 Telephone [facility] 1.2.840.114 [id number] Univers 00:00:00 00:00:00 Cody Ramesh 350.1.13.10 i ty of [place].2.[place] [phone] [address] 2021-08-15 2021-08-15 Transition Gabriel Rico 1.2.840.114 [id number] Univers 00:00:00 00:00:00 of Care Tono [place] 350.1.13.10 ity of [place] 4.2.7.2.686 [place] [phone] [facility] [address] 2021-08-12 2021-08-13 Outpatient X KIM [facility] [id number] Univers 09:57:00 15:12:00 CONSTANTINE ity of [facility] 2021-08-12 2021-08-13 Emergency Reyna Watt [facility] 1.2.840 .114 [id number] Univers 09:57:00 15:12:00 oCnstantine Alvarez 350.1.13.10 ity of [place] 4.2.7.2.686 [facility] [phone] [place] [address] [place] 2021-08-09 2021-08-09 Emergency X [facility] ERT [id number] Univers 21:33:00 23:08:00 GUILLERMINA ity [facility] 2021-08-09 2021-08-09 Emergency X [facility] ERT [id number] Univers 21:33:00 23:08:00 GUILLERMINA ity [facility] 2021-08-09 2021-08-09 Emergency X [facility] ERT [id number] Univers 21:33:00 23:08:00 GUILLERMINA ity [facility] 2021-08-09 2021-08-09 Emergency [facility] 1.2.840.114 [id number] Univers 21:33:00 23:08:00 Guillermina Ramesh 350.1.13.10 ity of [place] 4.2.7.2.686 [facility] [phone] [facility] [address] [place] 2021-08-09 2021-08-09 Orders Doctor CAROLINE 1.2.840.114 [id number] Univers 00:00:00 00:00:00 Only Unassigned, MALACHI 350.1.13.10 ity of Wing HOSPITAL 4.2.7.2.686 Willy as [phone] [facility] [address] [place] 2021-08-04 2021-08-04 Orders Doctor CAROLINE 1.2.840.114 [id number] Univers 00:00:00 00:00:00 Only Unassigned, MALACHI 350.1.13.10 ity of Wing HOSPITAL 4.2.7.2.686 Willy as [phone] [facility] [address] [place] 2021-08-01 2021-08-[address] [facility] 1.2.840.114 [id number] Univers 00:00:00 00:00:00 Outreach Barbara Ramesh 350.1.13.10 ity of [place] 4.2.7.2.686 [facility] Professio [phone] Tx dical nal 044 [facility] 2021-07-19 2021-07-19 Outpatient R MELONY [facility] [id number] Univers 09:00:00 10:31:58 GURPREET evangelista [facility] 2021-07-19 2021-07-19 Outpatient R MELONY [facility] [id number] Univers 09:00:00 10:31:58 GURPREET evangelista [facility] 2021-07-19 2021-07-19 Outpatient R MELONY [facility] [id number] Univers 09:00:00 10:31:58 GURPREET evangelista [facility] 2021-07-19 2021-07-19 Ancillary R[address]ana Nunn [facility] 1 .2.840.114 [id number] Univers 08:50:11 10:31:58 Visit Gurpreet Ty Rowena Ramesh [id number] [phone] [place] 178 [facility] 2021-07-13 2021-07-13 Outpatient R ANETTE [facility] [id number] Univers 10:30:00 10:28:36 [facility] 2021-07-13 2021-07-13 [id number] Univers 10:30:00 10:28:36 [facility] 2021-07-13 2021-07-13 Outpatient R ANETTE [facility] [id number] Univers 10:30:00 10:28:36 [facility] 2021-07-13 2021-07-13 Imm/Inj Nurse, Adc Pob Immunization [facility] 1.2.840.114 [id number] Univers 10:28:30 10:28:36 Visit Rhett Cheema 350.1.13 .10 [id number] [phone] [place] 421 [facility] 2021-07-13 2021-07-[address] [facility] 1.2.840.114 [id number] Univers 00:00:00 00:00:00 Cody Ramesh [id number] [id number] [phone] [place] 044 [facility] 2021-07-13 2021-07-[address] [facility] 1.2.840.114 [id number] Univers 00:00:00 00:00:00 Cody Ramesh [id number] [id number] [phone] [place] 044 [facility] 2021-07-12 2021-07-[address] [facility] 1.2.840.114 [id number] Univers 00:00:00 00:00:00 Outreach Barbara Guaman Gadiel [id number] [id number] [phone] [place] 044 [facility] 2021-07-12 2021-07-[address] [facility] 1.2.840.114 [id number] Univers 00:00:00 00:00:00 Outreach Barbara Guaman Gadiel [id number] [id number] [phone] [place] 044 [facility] [facility] 2021-07-07 2021-07-[address] [facility] 1.2.840.114 [id number] Univers 00:00:00 00:00:00 Secure Msg Cody Ramesh [id number] [phone] [place]ical [place]al 044 [facility] 2021-07-05 2021-07-05 Retail Store Assistant 2, Adc Lab [facility] 1.2.840.114 [id number] Univers 15:11:31 15:26:31 Visit CaroCody [id number] [id number] [phone] [place]al 353 [facility] 2021-07-05 2021-07-05 Nurse Med, Medicare Wellness [facility] 1.2.840.114 [id number] Univers 13:54:53 15:05:22 Visit Cody Dwyer [id number] [id number] [phone] [place] dical [place]al 044 [facility] 2021-07-05 2021-07-[address] [facility] 1.2.840.114 [id number] Univers 12:56:20 15:03:52 Visit Cody Ramesh [id number] [id number] [phone] [place] dicst. [facility] 044 [facility] 2021-07-05 2021-07-[address] [facility] 1.2.840.114 [id number] Univers 12:56:20 13:16:20 Visit Cody Ramesh [id number] [id number] [phone] [place] dical nal 044 [facility] 2021-07-05 2021-07-05 Outpatient R CARO [facility] [id number] Univers 13:00:00 13:00:00 CODY evangelista [facility] 2021-07-05 2021-07-05 Orders Doctor CAROLINE 1.2.840.114 [id number] Univers 00:00:00 00:00:00 Only Unassigned, MALACHI [id number] ity of Wing [facility] [id number] [place] as [phone] [address] 2021-07-03 2021-07-03 [facility] 1.2.840.114 [id number] Univers 10:52:55 11:22:22 Visit Tanisha Ramesh [id number] [id number] [phone] [place] dicnv nal 059 [facility] 2021-07-03 2021-07-03 Outpatient R DANIEL [facility] [id number] Univers 10:40:00 10:40:00 ATNISHA rowe [facility] 2021-06-22 2021-06-23 Outpatient R CARO [facility] [id number] Univers 10:40:00 14:23:56 CODY evangelista [facility] 2021-06-22 2021-06-23 Outpatient R CARO [facility] [id number] Univers 10:40:00 14:23:56 CODY evangelista [facility] 2021-06-22 2021-06-23 Outpatient R CARO [facility] [id number] Univers 10:40:00 14:23:56 CODY ryanne [facility] 2021-05-31 2021-05-31 Outpatient R DANIEL, [facility] [id number] Univers 09:00:00 09:00:00 TANISHA rowe [facility] 2021-05-29 2021-05-29 Orders Doctor CAROLINE 1.2.840.114 [id number] Univers 00:00:00 00:00:00 Only Unassigned, MALACHI [id number] ity of Wing [facility] [id number] [place] as [phone] [address] 2021-04-11 2021-04-11 Outpatient R TIFFANY, [facility] [id number] Univers 09:00:00 09:54:14 NORTH [facility] 2021-04-11 2021-04-11 Outpatient R TIFFANY, [facility] [id number] Univers 09:00:00 09:54:14 NORTH itryanne [facility] 2021-04-11 2021-04-11 Outpatient R TIFFANY, [facility] [id number] Univers 09:00:00 09:54:14 NORTH itryanne [facility] 2021-03-14 2021-03-14 Outpatient R CARO [facility] [id number] Univers 08:40:00 08:40:00 CODY ryanne [facility] 2021-02-21 2021-02-21 Outpatient R CARO, [facility] [id number] Univers 16:45:00 16:45:00 CODY ryanne [facility] 2021-02-21 2021-02-21 Outpatient R CARO [facility] [id number] Univers 16:45:00 16:45:00 CODY [facility] 2021-02-21 2021-02-21 Outpatient R CARO [facility] [id number] Univers 16:45:00 16:45:00 CODY [facility] 2021-02-08 2021-02-08 Outpatient R DIONICIO [facility] [id number] Univers 16:10:00 07:27:42 SHAD ity [facility] 2021-02-08 2021-02-08 Outpatient R DIOINCIO [facility] [id number] Univers 16:10:00 07:27:42 SHAD [facility] 2021-02-08 2021-02-08 Outpatient R DIONICIO [facility] [id number] Univers 16:10:00 07:27:42 SHAD [facility] 2021-01-11 2021-01-11 Outpatient R DIONICIO [facility] [id number] Univers 16:20:00 16:08:37 SHAD ryanne [facility] 2021-01-11 2021-01-11 Outpatient R DIONICIO [facility] [id number] Univers 16:20:00 16:08:37 SHAD [facility] 2021-01-05 2021-01-05 Outpatient SKIP BURTON [facility] [id number] Univers 08:00:00 08:00:00 SKIP HAWLEY [facility] 2020-12-28 2020-12-28 Outpatient SKIP BURTON [facility] [id number] Univers 07:38:16 23:59:00 SKIP HAWLEY ryanne [facility] 2020-12-12 2020-12-12 Outpatient SKIP BURTON [facility] [id number] Univers 11:00:00 11:00:00 SKIP HAWLEY [facility] 2020-11-30 2020-11-30 Outpatient Armida DWYER [facility] [id number] Univers 13:00:00 13:00:00 CODY tonja [facility] 2020-08-31 2020-08-31 Outpatient R DANIEL, [facility] [id number] Univers 09:20:00 09:20:00 TANISHA rowe [facility] 2020-08-18 2020-08-18 Outpatient R DEMETRIA [facility] [id number] Univers 13:20:00 13:20:00 BARRIESURY evangelista [facility] 2020-06-14 2020-06-14 Outpatient R DEMETRIA [facility] [id number] Univers 08:40:00 08:40:00 BARRIE ity [facility] 2020-03-31 2020-03-31 Outpatient R DEMETRIA [facility] [id number] Univers 08:30:00 08:30:00 BARRIE ity [facility] 2020-03-10 2020-03-10 Outpatient R AUGUSTIN, [facility] [id number] Univers 08:40:00 08:40:00 BARRIE ity [facility] 2020-02-29 2020-02-29 Outpatient R DANIEL, [facility] [id number] Univers 09:00:00 09:00:00 TANISHA rowe [facility] 2020-01-21 2020-01-21 Outpatient R DEMETRIA [facility] [id number] Univers 12:20:00 12:20:00 BARRIE evangelista [facility] 2019-12-31 2019-12-31 Outpatient R ABNER [facility] [id number] Univers 08:40:00 08:40:00 TUYET tonja [facility] 2019-12-28 2019-12-28 Outpatient R LUNA [facility] [id number] Univers 09:00:00 09:00:00 ZHANE ity [facility] 2019-12-10 2019-12-10 Outpatient R DEMETRIA [facility] [id number] Univers 13:00:00 14:24:38 BARRIE ity [facility] 2019-11-26 2019-11-26 Outpatient R LUNA [facility] [id number] Univers 09:15:00 10:43:36 ZHANE tonja [facility] 2019-11-12 2019-11-17 Inpatient X SHARDA [facility] [id number] Univers 14:47:43 14:42:00 JOSE evangelista [facility] 2019-08-28 2019-08-28 Outpatient R DANIEL [facility] [id number] Univers 11:00:00 11:35:09 TANISHA daniels f [facility] Results This patient has no known results.
[2023-07-25 18:14] LABS: Absolute Lymphocytes (CBC) 2.1 K/uL (0.7-4.9); Hematocrit 32.3 % (36.0-45.0); Lymphocytes % 25.9 % (15.3-44.8); MCV 87.6 fL (80-100); MPV 7.9 fL (7.6-11.3); Platelets 226 thou/uL (152-406); RBC Red Blood Cell Count 3.68 M/uL (3.86-4.86)
[2023-07-25 18:30] LABS: Potassium 4.1 mEq/L (3.5-5.1)
--- NOTE | 2023-07-25 18:30 | RAD REPORT ---
EXAM DESCRIPTION: RAD - Knee Right 3 View - 07/25/2023 6:12 pm CLINICAL HISTORY: Pain;Swelling COMPARISON: No comparisons TECHNIQUE: Right knee, 3 views. FINDINGS: No fracture, dislocation or periosteal reaction.Total knee arthroplasty in place. Anterior soft tissue swelling and fullness in the suprapatellar space. No soft tissue abnormality. IMPRESSION: Soft tissue swelling and fullness in the suprapatellar space as above. No acute osseus a bnormality.
[2023-07-25 18:31] LABS: Protime INR 0.92
--- NOTE | 2023-07-25 19:44 | RAD REPORT ---
EXAM DESCRIPTION: CT - Knee Right Wo Cont - 07/25/2023 7:12 pm CLINICAL HISTORY: Fall injury COMPARISON: Knee Right 3 View dated 07/25/2023 TECHNIQUE: Thin cut axial CT imaging of the right knee was performed follo without IV contrast. Mult iplanar reformats were generated and reviewed. All CT scans are performed using dose optimization technique as appropriate and may include automated exposure control or mA/KV adjustment according to patient size. FINDINGS: Right total knee arthroplasty in place. Components in satisfactory alignment without evide nce of complications no dislocation. Streak artifact resulting from the arthroplasty hardware limits evaluation. Allowing for these limita tions, there is suprapatellar recess fluid distention, with slightly hyperdense fluid, up to 3 cm in thickness. This may represent an effusion or hemarthrosis. Pronounced anterior subcutaneous soft tissue thickening and edema, with a suprapatellar somewhat well -localized ovoid collection component measuring 3.7 x 2.4 cm in greatest axial dimensions. This exten ds across and below the knee, with more poorly localized appearance. Muscle compartments are unremarkable. Some vascular calcifications are present. IMPRESSION: No acute osseous abnormality or periprostatic fracture. Allowing for streak artifact which limits evaluation, suprapatellar recess fluid distention is noted, which may represent a diffusion arthrosis. Pronounced anterior subcutaneous soft tissue thickening with component of well-circumscribed fluid ab ove the knee which may represent bursal distention/hemorrhage, or subcutaneous hematoma. More poorly localized extension of the fluid caudally below the knee level.
--- NOTE | 2023-07-25 20:01 | EDPHYS ---
Physician Documentation [facility] Name: Awa Choudhary Age: 62 yrs Sex: Female : 1960 Arrival Date: 07/25/2023 Time: 17:26 Bed Treatment Private MD: ED Physician Jarod Maldonado HPI: 07/25 18:00 This 62 yrs old Black Female presents to ER via EMS with complaints of Fall Injury, cp Knee Pain. 18:00 The patient presents with an injury, pain, that is acute. cp 18:00 The complaints affect the right knee. Context: resulted from the patient falling, from cp bed, the patient is not able to bear weight, must have assistance. Onset: The symptoms/episode began/occurred yesterday. 18:00 Associated signs and symptoms: The patient has no apparent associated signs or cp symptoms. Treatment prior to arrival includes: given IV 100 mcg fentanyl for pain by EMS. 18:00 Patient reports right total knee replacement surgery by DR Saleh approximately 6 cp weeks ago. Historical: - Allergies: 17:51 No Known Allergies; cm10 - PMHx: 17:51 Diabetes mellitus; Hypertensive disorder; cm10 - PSHx: 17:51 Total knee replacement- Right; cm10 - Immunization history:: Adult Immunizations up to date. - Social history:: Smoking status: Patient reports the use of cigarette tobacco products, smokes one-half pack cigarettes per day. ROS: 18:05 MS/extremity: Positive for decreased range of motion, pain, swelling, tenderness, cp Negative for deformity, warmth, 18:05 Constitutional: Negative for body aches, chills, fever, poor PO intake, cp 18:05 Neck: Negative for pain with movement, pain at rest, stiffness, 18:05 Respiratory: Negative for cough, shortness of breath, wheezing, 18:05 Abdomen/GI: Negative for abdominal pain, nausea, vomiting, and diarrhea, 18:05 Back: Negative for pain at rest, pain with movement, 18:05 Neuro: Negative for altered mental status, dizziness, headache, weakness, 18:05 All other systems are negative, Exam: 18:10 Constitutional: The patient appears in no acute distress, alert, awake, cp non-diaphoretic, non-toxic, well developed, well nourished, obese, 18:10 Head/Face: Normocephalic, atraumatic. cp 18:10 Eyes: Periorbital structures: appear normal, Conjunctiva: normal, no exudate, no injection, Sclera: no appreciated abnormality, Lids and lashes: appear normal, bilaterally, 18:10 ENT: External ear(s): are unremarkable, Nose: is normal, Mouth: Lips: moist, Oral mucosa: moist, Posterior pharynx: is normal, airway is patent, no erythema, no exudate, 18:10 Neck: ROM/movement: is normal, is supple, without pain, no range of motions limitations, 18:10 Chest/axilla: Inspection: normal, 18:10 Cardiovascular: Rate: normal, Rhythm: regular, Edema: is not appreciated, 18:10 Respiratory: the patient does not display signs of respiratory distress, Respirations: normal, no use of accessory muscles, no retractions, Breath sounds: are clear throughout, no decreased breath sounds, 18:10 Abdomen/GI: Inspection: abdomen appears normal, Palpation: abdomen is soft and non-tender, in all quadrants, 18:10 Back: pain, is absent, ROM is normal, 18:10 Musculoskeletal/extremity: Extremities: grossly normal except: noted in the right knee: contusion, pain, tenderness, anterior knee swelling noted, ROM: limited passive range of motion due to pain, in the right knee, Perfusion: the extremity is normally perfused throughout, the right leg Sensation intact. 18:10 Neuro: Orientation: to person, place \T\ time. Mentation: is normal, Vital Signs: 17:49 BP 107 / 61; Pulse 62; Resp 18; Temp 98.6(O); Pulse Ox 98% on R/A; Weight 108.86 kg; cm10 Height 5 ft. 4 in. ; Pain 8/10; 21:34 BP 114 / 66; Pulse 55; Resp 16; Pulse Ox 95% on R/A; kl 17:49 Body Mass Index 41.20 (108.86 kg, 162.56 cm) cm10 17:49 Pain Scale: Adult cm10 Procedures: 20:05 Splinting: Splint applied to right knee using knee immobilizer, applied by nurse. cp Examined by me, post splint application: neurovascular intact, Patient tolerated well, recommend use of walker and non-wt bearing. MDM: 17:46 Patient medically screened. cp 18:00 Differential diagnosis: dislocation, closed fracture, contusion. 20:00 Data reviewed: vital signs, nurses notes, radiologic studies, plain films. 20:00 Consideration of Admission/Observation Escalation of care including cp admission/observation considered. 20:00 I considered the following discharge prescriptions or medication management in the emergency department Medications were administered in the Emergency Department. See MAR. Care significantly affected by the following chronic conditions: Diabetes, Hypertension, Obesity. Counseling: I had a detailed discussion with the patient and/or guardian regarding the historical points, exam findings, and any diagnostic results supporting the discharge/admit diagnosis, lab results, radiology results, the need for outpatient follow up, a orthopedic surgeon. 07/25 17:45 Order name: Basic Metabolic Panel; Complete Time: 18:50 07/25 19:59 Interpretation: Normal except: GLUC 212; GFR 61. 07/25 17:45 Order name: CBC with Diff; Complete Time: 18:50 07/25 19:59 Interpretation: Normal except: RBC 3.68; HGB 10.5; HCT 32.3; RDW 15.6. 07/25 17:45 Order name: PT-INR; Complete Time: 18:50 cp 07/25 17:45 Order name: Ptt, Activated; Complete Time: 18:50 cp 07/25 17:45 Order name: XRAY Knee RIGHT 3 view; Complete Time: 18:50 cp 07/25 18:41 Order name: Knee Right Wo Cont; Complete Time: 19:51 EDMS 07/25 19:53 Interpretation: Report Reviewed. 07/25 17:45 Order name: Labs collected and sent; Complete Time: 18:00 cp 07/25 18:36 Order name: Knee Immobilizer; Complete Time: 21:34 cp Administered Medications: No medications were administered Disposition: 21:43 Co-signature as Attending Physician, Jarod Maldonado MD I reviewed the patient's care rt provided by the Advanced Practice Provider and agree with the diagnosis and treatment plan. Disposition Summary: 07/25/23 20:01 Discharge Ordered Notes: Location: Home cp Problem: new cp Symptoms: have improved cp Condition: Stable cp Diagnosis - Contusion of right knee, initial encounter cp - Effusion, right knee cp Followup: cp - With: Anjel Saleh MD - When: 2 - 3 days - Reason: Recheck today's complaints Discharge Instructions: - Discharge Summary Sheet cp - Hematoma cp - Knee Effusion cp - How to Use a Knee Immobilizer cp - RICE Therapy for Routine Care of Injuries cp Forms: - Medication Reconciliation Form cp - Thank You Letter cp - Antibiotic Education cp - Prescription Opioid Use cp - Patient Portal Instructions cp - Leadership Thank You Letter cp Signatures: Dispatcher [employer] EDMS Juan Carpenter PA PA cp Jarod Maldonado MD MD rt Krystina Calvo RN RN cm10 Corrections: (The following items were deleted from the chart) 07/26 20:25 07/25 21:00 Splinting: Splint applied to right knee using knee immobilizer, applied by cp nurse. Examined by me, post splint application: neurovascular intact, Patient tolerated well, recommend use of walker and non-wt bearing. cp
--- NOTE | 2023-07-25 20:01 | ER ---
Nurse's Notes [facility] Name: Awa Choudhary Age: 62 yrs Sex: Female : 1960 Arrival Date: 07/25/2023 Time: 17:26 Bed Treatment Private MD: Diagnosis: Contusion of right knee, initial encounter;Effusion, right knee Presentation: 07/25 17:49 Chief complaint: EMS states: pt fell at approximately 0400 and is complaining of right cm10 knee pain. Pt had a right total knee replacement 6wks ago by Dr. Saleh. Coronavirus screen: Vaccine status: Patient reports receiving the 2nd dose of the covid vaccine. Client denies travel out of the [place] in the last 14 days. Ebola Screen: Patient denies travel to an Ebola-affected area in the 21 days before illness onset. No symptoms or risks identified at this time. Initial Sepsis Screen: Does the patient meet any 2 criteria? No. Patient's initial sepsis screen is negative. Does the patient have a suspected source of infection? No. Patient's initial sepsis screen is negative. Risk Assessment: Do you want to hurt yourself or someone else? Patient reports no desire to harm self or others. Onset of symptoms was July 25, 2023. Care prior to arrival: Medication(s) given: zofran 4 mg, Fentanyl 150mcg IV initiated. 20 GA, in the right antecubital area. 17:49 Method Of Arrival: EMS: [facility] 17:49 Acuity: [place] 3 cm10 Triage Assessment: 17:51 General: Appears in no apparent distress. uncomfortable, Behavior is calm, cooperative. cm10 Pain: Complains of pain in right knee Pain currently is 8 out of 10 on a pain scale. Pain began suddenly. Neuro: No deficits noted. Level of Consciousness is awake, alert, obeys commands, Oriented to person, place, time, situation. Respiratory: No deficits noted. Airway is patent Respiratory effort is even, unlabored, Respiratory pattern is regular, symmetrical. GI: No deficits noted. : No deficits noted. Musculoskeletal: Reports pain in right knee. Historical: - Allergies: 17:51 No Known Allergies; cm10 - PMHx: 17:51 Diabetes mellitus; Hypertensive disorder; cm10 - PSHx: 17:51 Total knee replacement- Right; cm10 - Immunization history:: Adult Immunizations up to date. - Social history:: Smoking status: Patient reports the use of cigarette tobacco products, smokes one-half pack cigarettes per day. Screenin:53 [facility] ED Fall Risk Assessment (Adult) History of falling in the last 3 months, cm10 including since admission Yes- single mechanical fall (1 pt) Confusion or Disorientation No (0 pts) Intoxicated or Sedated No (0 pts) Impaired Gait Yes (1 pt) Mobility Assist Device Used Yes (1 pt) Altered Elimination No (0 pt) Score/Fall Risk Level 3 or more points = High Risk Oriented to surroundings, Maintained a safe environment, Hourly rounding (assess needs \T\ fall precautionary measures) done. Abuse screen: Denies threats or abuse. Denies injuries from another. Nutritional screening: No deficits noted. Tuberculosis screening: No symptoms or risk factors identified. Assessment: 17:53 Reassessment: See triage assessment. cm10 21:34 Reassessment: Patient appears in no apparent distress at this time. Patient states kl feeling better. Patient states symptoms have improved. Vital Signs: 17:49 BP 107 / 61; Pulse 62; Resp 18; Temp 98.6(O); Pulse Ox 98% on R/A; Weight 108.86 kg; cm10 Height 5 ft. 4 in. ; Pain 8/10; 21:34 BP 114 / 66; Pulse 55; Resp 16; Pulse Ox 95% on R/A; kl 17:49 Body Mass Index 41.20 (108.86 kg, 162.56 cm) cm10 17:49 Pain Scale: Adult cm10 ED Course: 17:41 Patient arrived in ED. cm10 17:44 Juan Carpenter PA is PHCP. cp 17:44 Jarod Maldonado MD is Attending Physician. cp 17:51 Triage completed. cm10 17:51 Arm band placed on Patient placed in an exam room, on a stretcher. cm10 17:53 Patient has correct armband on for positive identification. Bed in low position. Call cm10 light in reach. Side rails up X2. Provided Education on: ED process and procedures.. Pulse ox on. NIBP on. 17:55 Krystina Calvo RN is Primary Nurse. cm10 17:55 Maintain EMS IV. Dressing intact. Good blood return noted. Site clean \T\ dry. Gauge \T\ cm 10 site: 20g RAC. IV is intact. 18:14 XRAY Knee RIGHT 3 view In Process Unspecified. EDMS 19:14 Knee Right Wo Cont In Process Unspecified. EDMS 20:00 Anjel Saleh MD is Referral Physician. cp 20:45 No apparent distress. Resting quietly. Appears to be sleeping. kl 21:35 No provider procedures requiring assistance completed. IV discontinued, intact, kl bleeding controlled, No redness/swelling at site. Pressure dressing applied. 21:35 Knee immobilizer applied on right knee. kl Administered Medications: No medications were administered Medication: 17:53 VIS not applicable for this client. cm10 Outcome: 20:01 Discharge ordered by . cp 21:35 Discharged to home via wheelchair, with family, kl 21:35 Condition: stable 21:35 Discharge instructions given to patient, Instructed on discharge instructions, follow up and referral plans. Demonstrated understanding of instructions, follow-up care, 21:36 Patient left the ED. kl Signatures: Dispatcher [employer] Fatoumata Lazo, RN RN Juan Frias, PA PA Krystina Rosenberg, RN RN cm10
[2023-07-26 00:30] VITALS: TEMP 98.6
[2023-07-26 00:32] VITALS: BP 114/66; O2SAT 95
== END 2023-07-25 21:36 | disposition home or self-care (01) ==
LOC: ER 17:26
DX: M25.461 Effusion, right knee (principal); Z96.651 Presence of right artificial knee joint; F17.210 Nicotine dependence, cigarettes, uncomplicated
CPT/HCPCS: 36415; 73700; 80048; 85025; 85610; 85730; 99284